=== PATIENT | male | born 1950 | race Caucasian/White ===

== ENCOUNTER → 2023-04-14 15:05 | Outpatient (REF) | payer MEDICARE, OTHER, SELFPAY | LOC: RAD 15:05 | PROVIDERS: ATTENDING PHYSICIAN Family Medicine | DX: R31.9 Hematuria, unspecified (principal); C67.9 Malignant neoplasm of bladder, unspecified; C61 Malignant neoplasm of prostate | CPT/HCPCS: 74177; Q9967 ==

== ENCOUNTER → 2023-04-27 13:02 | Outpatient (REF) | payer MEDICARE, OTHER, SELFPAY | LOC: RAD 13:02 | PROVIDERS: ATTENDING PHYSICIAN Physician Assistant; FAMILY PHYSICIAN Family Medicine | DX: I65.29 Occlusion and stenosis of unspecified carotid artery (principal); I65.23 Occlusion and stenosis of bilateral carotid arteries | CPT/HCPCS: 93880 ==

== ENCOUNTER 2023-05-11 06:53 | Day surgery (SDC) | payer MEDICARE, OTHER, SELFPAY ==
[2023-05-11] VITALS (23 sets, daily range): BP systolic 69–152; BP diastolic 13–68; BMI 22.5
[2023-05-11] MEDS: LOW STRENGTH ASPIRIN 81 MG PO (07:38)
[2023-05-11] MEDS: NSS 500 IV (07:39)
[2023-05-11 07:59] LABS: Hematocrit 32.5 % (39.0-52.0); Hemoglobin 10.9 g/dL (13.0-18.0); Mean Corp Hgb Conc. 33.5 g/dL (33.0-37.0); Mean Corpuscular Hgb 27.5 pg (27.0-31.0); Mean Corpuscular Volume 81.9 fL (80.0-94.0); Mean Platelet Volume 11.5 fL (7.4-10.4); Platelet Count 191 10^3/uL (130-400); Red Blood Cell Count 3.97 10^6/uL (4.70-6.10); Red Cell Dist. Width 14.1 % (11.5-14.5); White Blood Cell Count 8.4 10^3/uL (4.8-10.8)
[2023-05-11 08:08] LABS: INR 1.19
[2023-05-11 08:09] LABS: APTT 32.1 Sec (23.4-35.0)
[2023-05-11 08:15] LABS: Blood Urea Nitrogen 18 mg/dl (9-20); Calcium 8.8 mg/dl (8.4-10.2); Carbon Dioxide 28 mmol/L (22-30); Chloride 103 mmol/L (98-107); Estimated Creatinine Clearance 94 ml/min; Glucose 96 mg/dl (70-99); Potassium 3.8 mmol/L (3.5-5.1); Sodium 137 mmol/L (135-145); eGFR > 60.00
--- NOTE | 2023-05-11 08:41 | W.SUR.PREOP ---
Pre-Operative Surgical Note
-
I have examined this patient prior to the performance of the scheduled procedure.
The patient's condition is unchanged from the time of the current History and
Physical and the patient is able to undergo the scheduled procedure.
[2023-05-11 09:38] LABS: Glucose - Point of Care 118 mg/dl (70-99)
[2023-05-11] MEDS: NSS 1000 IV (10:56)
[2023-05-11] MEDS: ROXICODONE 5 MG PO (13:05)
[2023-05-11] MEDS: TYLENOL 650 MG PO (13:05)
--- NOTE | 2023-05-11 15:30 | PTCARENOTE ---
noted some swelling in right foot distal to the tubigrip dressing in place, pt denies complaints of pain or numbness/tingling, foot is pink with +doppler DP signal, Hilda franco texted and came to evaluate pt- no new orders, confirmed
pt is OK for discharge
--- NOTE | 2023-05-11 15:48 | OR.RPT ---
Operative Report
Operative Report
Date of Operation: 05/11/2023
Pre Op Diagnosis: Nonhealing wound plantar surface of right heel
Post Op Diagnosis: Nonhealing wound plantar surface of right heel
Procedure:
1.) Selective catheterization of second-order right lower extremity artery
2.) Diagnostic aortobiiliac arteriogram
3.) Diagnostic right lower extremity arteriogram
4.) Ultrasound-guided percutaneous access to the left common femoral artery
Surgeon: Tirso Cramer III, MD
Telephone Advice Nurse: Jin Dent MD PGY-1
Anesthesia: Sedation with local
Fluoroscopy:
11 min
218 mGy
64.86 Gy.cm2
Complications: None
Estimated Blood Loss: Minimal
History and Indications for Procedure: 73-year-old male with nonhealing wound on the plantar surface of his right heel
Procedure in Detail: Herrera Angel was correctly identified and placed supine on the operating table. After adequate induction of anesthesia the bilateral groins were prepped and draped in the usual sterile fashion. A timeout was performed with the
nursing and anesthesia staff confirming the patient's identity as well as the nature and laterality of the procedure.
The left common femoral artery was identified under ultrasound guidance. The artery was patent with luminal calcified plaque identified. The superior and inferior aspects of the femoral head were identified with radiographic guidance and marked at
the skin level. The proposed puncture site was infiltrated with local anesthesia. We saved a copy of the ultrasound image to the medical record. Under ultrasound guidance we accessed the left common femoral artery with a micropuncture needle and
upsized to a 5 Fr sheath over a Bentson wire. The wire and a ShepherMira Dx hook flush catheter were advanced into the distal abdominal aorta and a diagnostic aorto-biiliac arteriogram was performed:
AORTO-ILIAC ARTERIOGRAM:
Aorta: Heavily calcified. Patent. 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
Right common iliac artery: Diffusely calcified. Patent stent. No significant stenosis identified
Right external iliac artery: Diffusely calcified. Patent. No significant stenosis identified
Left common iliac artery: Patent stent. Calcified.
Left external iliac artery: Diffusely calcified. Patent.
Under roadmap guidance using a Glidewire and the ShegDecideerMira Dx hook catheter we selected the right common iliac artery and then the external iliac artery. A catheter was tracked up and over the aortic bifurcation and placed in the distal external iliac
artery. A diagnostic right lower extremity arteriogram was then performed which demonstrated the following:
RIGHT LOWER EXTREMITY:
Common femoral artery: Patent with no stenosis identified
Profunda femoral artery: Patent with no stenosis identified
Superficial femoral artery: Stented throughout. Patent with brisk flow. Focal areas of mild in-stent restenosis identified
Popliteal artery: Patent with no significant stenosis identified
Anterior tibial artery: Patent at its origin but occluded shortly thereafter. No distal reconstitution.
Tibioperoneal trunk: Patent with no stenosis identified
Peroneal artery: Patent with no stenosis identified
Posterior tibial artery: Patent with no stenosis identified. Flow to the heel is identified through posterior tibial and peroneal artery branches.
Significant small vessel disease is identified in the foot. There is no reconstitution of the dorsalis pedis artery. Only 1 plantar branch is identified in the foot.
Satisfied with this result we concluded the procedure. The catheter was pulled from the sheath. The sheath was secured in place with the plan to pull it in the recovery room.
The patient tolerated the procedure well and was taken to the recovery area in stable condition.
Attestation: I was present and responsible for the entire procedure.
Signed:
Tirso Cramer III, MD
[facility]
[phone] (notw)
--- NOTE | 2023-05-11 16:17 | W.IMMPOSTOP ---
Surgical Immed Post Op Note
-
Primary Surgeon: Tirso Cramer III, MD
Assisting Surgeon: Jin Dent MD
Pre-op Diagnosis: Non-healing R LE Ulcer
Post-op Diagnosis: Non-Healing R LE Ulcer
Procedure Performed: Diagnostic RLE A-Gram
Anesthesia Type: Light Sedation
Specimen / Cultures: N/A
Estimated Blood Loss: 2cc
Complications: None
Operative Findings: Mild femoral and popliteal disease. TP moderately calcified. Posterior LE circulation intact. Cannot r/o possibility of microvascular disease.
== END 2023-05-11 15:45 | disposition home or self-care (01) ==
LOC: CATH 06:53
PROVIDERS: ATTENDING PHYSICIAN Surgery Vascular Surgery; FAMILY PHYSICIAN Family Medicine
DX: I70.234 Atherosclerosis of native arteries of right leg with ulceration of heel and midfoot (principal); L97.419 Non-pressure chronic ulcer of right heel and midfoot with unspecified severity; I65.29 Occlusion and stenosis of unspecified carotid artery
CPT/HCPCS: 36246; 75716; 75625; 76937; 80048; 82962; 85027; 85610; 85730; C1894; Q9967

== ENCOUNTER → 2023-05-20 19:22 | Outpatient (REF) | payer MEDICARE, OTHER, SELFPAY | LOC: MRI 19:22 | PROVIDERS: ATTENDING PHYSICIAN Podiatrist Foot Surgery; FAMILY PHYSICIAN Family Medicine | DX: M79.671 Pain in right foot (principal) | CPT/HCPCS: 73718 ==

== ENCOUNTER → 2023-06-08 08:59 | Outpatient (REF) | payer MEDICARE, OTHER, SELFPAY | LOC: RAD 08:59 | PROVIDERS: ATTENDING PHYSICIAN Podiatrist Foot Surgery; FAMILY PHYSICIAN Family Medicine | DX: L97.512 Non-pressure chronic ulcer of other part of right foot with fat layer exposed (principal) | CPT/HCPCS: 78315; A9503 ==

== ENCOUNTER → 2023-06-10 06:41 | Outpatient (REF) | payer MEDICARE, OTHER, SELFPAY | LOC: RAD 06:41 | PROVIDERS: ATTENDING PHYSICIAN Podiatrist Foot Surgery; FAMILY PHYSICIAN Family Medicine | DX: L97.512 Non-pressure chronic ulcer of other part of right foot with fat layer exposed (principal) | CPT/HCPCS: 78803; A9569 ==

== ENCOUNTER 2023-07-14 21:09 | Emergency (ER) | payer MEDICARE, OTHER, SELFPAY ==
[2023-07-14 21:11] VITALS: BP 166/74; BMI 22.7
[2023-07-14 21:12] VITALS: BP 166/74
[2023-07-14 21:22] LABS: % Basophils 0.8 % (0-2); % Eosinophils 1.5 % (0-6); % Immature Granulocytes 0.3 % (0-0.5); % Lymphocytes 15.9 % (20.5-51.1); % Monocytes 9.3 % (1.7-9.3); % Neutrophils 72.2 % (42.2-75.2); Absolute Basophils 0.1 10^3/uL (0-0.2); Absolute Eosinophils 0.1 10^3/uL (0-0.7); Absolute Lymphocytes 1.5 10^3/uL (1.2-3.4); Absolute Monocytes 0.9 10^3/uL (0.1-0.6); Absolute Neutrophils 6.6 10^3/uL (1.4-6.5); Hematocrit 33.4 % (39.0-52.0); Hemoglobin 11.1 g/dL (13.0-18.0); Mean Corp Hgb Conc. 33.2 g/dL (33.0-37.0); Mean Corpuscular Hgb 27.3 pg (27.0-31.0); Mean Corpuscular Volume 82.3 fL (80.0-94.0); Mean Platelet Volume 10.7 fL (7.4-10.4); Nucleated Red Blood Cells % 0 % (-); Platelet Count 197 10^3/uL (130-400); Red Blood Cell Count 4.06 10^6/uL (4.70-6.10); Red Cell Dist. Width 14.9 % (11.5-14.5); White Blood Cell Count 9.1 10^3/uL (4.8-10.8)
--- NOTE | 2023-07-14 21:31 | ED.GENMED ---
History of Present Illness
General
Chief Complaint: Breathing Problem
Source: patient
Exam Limitations: none
Time Seen by Provider: 07/14/23 21:21
Travel History
Have you had any contact with someone who has COVID-19?: No
Do you have any symptoms of coronavirus? Fever > 100 degrees, chills, cough, shortness of breath, sore throat, loss of taste or smell, muscle aches, or headache?: No
History of Present Illness
History of Present Illness:
See MDM
Past History
Past History
ED Past Medical History: Arrthythmia (Atrial fib), CAD, Cancer (Prostate, Bladder), CHF, HTN, Hypercholesterolemia, NIDDM and Other (Diabetic neuropathy, Left foot drop, Frequent Syncope, Pericarditis, PVD, Numbness and tingling)
ED Past Surgical History: Cardiac (CABG with Mitral valve replaced), Orthopedic (Left Shoulder surgery), Urological (Prostatectomy) and Other (Amputation left great toe, Bypass left groin, Left fempop bypass. Left leg stent, )
Social History
Tobacco: Former smoker
Alcohol: None
Drug: None
Personal:
Living: with family
Employment: Employed
Family History
Family History: Hypertension
Phy Exam
Physical Exam
Physical Exam:
See MDM
Scores
Heart Failure Risk
Heart Failure Risk Score: Yes
History of Stroke or TIA: No
History of intubation for respiratory distress: No
Heart rate on ED arrival >/= 110: No
SaO2 <90% on arrival on room air: No
HR >/=110 during 3min walk test (or too ill to perform test): No
ECG has acute ischemic changes: No
Urea >/=12mmol/L (BUN 33.6mg/dL): No
Serum CO2>/=35mmol/L: No
Troponin I or T elevated to TN Level (0.4mg/dL): No
NT-proBNP >/=5,000ng/L (5,000pg/ml): No
HF Risk Score: 0
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
Course
Orders/Labs/Results
Orders:
Orders
07/14/23 21:14
Electrocardiogram (*1) Urgent
Reason for Study: Shortness of Breath
EKG- Treatment ONCE
07/14/23 21:15
Complete Blood Count/With Diff Urgent
Comprehensive Metabolic Panel Urgent
NT-proBNP Urgent
Troponin I Urgent
Comment: ADD ON
07/14/23 21:27
Add On- LAB Urgent
Tests Added?: troponin
CR Chest - 2 Views Urgent
Comment: Hx CHF
Reason For Exam: SOB
07/14/23 21:33
Furosemide [Lasix] 40 mg IV ONCE ONE
Abnormal Lab Results
07/14/23
21:15
RBC 4.06 L 10^6/uL
(4.70-6.10)
Hgb 11.1 L g/dL
(13.0-18.0)
Hct 33.4 L %
(39.0-52.0)
RDW 14.9 H %
(11.5-14.5)
MPV 10.7 H fL
(7.4-10.4)
Absolute Neuts (auto) 6.6 H 10^3/uL
(1.4-6.5)
Absolute Monos (auto) 0.9 H 10^3/uL
(0.1-0.6)
Lymphocytes % 15.9 L %
(20.5-51.1)
BUN 21 H mg/dl
(9-20)
Glucose 132 H mg/dl
(70-99)
07/14/23 21:15
07/14/23 21:15
Vital Signs
Initial and Last Documented VS:
Initial Vital Signs
Temp Pulse Resp BP Pulse Ox
98.1 F 82 24 166/74 93
07/14/23 21:11 07/14/23 21:11 07/14/23 21:11 07/14/23 21:11 07/14/23 21:11
Last Documented Vital Signs
Temp Pulse Resp BP Pulse Ox
98.1 F 78 16 124/63 97
07/14/23 21:11 07/14/23 23:00 07/14/23 23:00 07/14/23 23:00 07/14/23 23:00
MDM/Problems Addressed
Differential Diagnosis Includes:
HPI and MDM Narrative:
73-year-old male presenting with shortness of breath. Patient states it was sudden onset and occurred few minutes prior to arrival. EMS arrived and supplied oxygen and sublingual nitroglycerin. Patient states he is starting to feel better. He
denies any chest pain. Patient states this happens randomly and believes it is related to his CHF. I discussed that his legs and lungs sound clear. Patient states that his normal for his CHF exacerbations.
Will obtain EKG and basic blood work in addition to troponin and BNP.
Physical exam
General: Well appearing and non-toxic
HEENT: protecting airway
Neck: appears supple
CV: No evidence of cyanosis. Regular rate and rhythm
Resp: No accessory muscle use. Lungs clear
Abd: Non-distended
Extremities: No deformities. No leg edema
Neuro: alert
Psych: Normal affect
Skin: Intact
Problems Addressed including Acute and Chronic Conditions affecting care:
1. Shortness of breath
Acuity: acute
Prognosis: stable
Details: Given his prior history, will look for evidence of CHF exacerbation. Will give IV Lasix
Updates
11:45 PM on reassessment, patient states he is feeling better. He is ambulating without difficulty. He is no longer on oxygen. He states he urinated multiple times. I long discussion indicating that his labs look decent and his chest x-ray is
clear. We discussed the possibility of COPD but patient has no wheezing. He states his doctor told him he does not have COPD. He question CHF. I discussed that there is no evidence of pulmonary edema, pleural effusions and his BNP is at
baseline. Since patient has been through this before and knows that he feels better in the morning, patient states he wants to go home. We discussed taking 40 mg of Lasix daily for the next few days instead of alternating between 40 and 20
Differential Diagnosis (but not limited to): CHF exacerbation, pneumonia, COPD
Testing considered: D-dimer
Drug therapy (if applicable): OTC meds, please see d/c instruction regarding Rx drugs
Amount and/or Complexity of Data Reviewed
Clinical info obtained from: Patient
External data reviewed: N/A
Labs I independently reviewed (but not limited to): Troponin and BNP at baseline
Radiology: X-ray independently reviewed: Chest x-ray without pneumonia or pleural effusion
Pulse Ox: not hypoxic
EKG independently reviewed: Sinus rhythm, normal axis, no STEMI
Shopper: Sinus rhythm
Critical Care: N/A
Risk of Complication:
Social Determinants of health: Good social support
Discussed with other providers: N/A
Escalation of Care includes Admit/Obs: After being observed in the Emergency Department, pt stable for discharge.
Occasional wrong word or 'sound a like' substitutions may have occurred due to the inherent limitations of voice recognition software. Read the chart carefully and recognize, using context, where substitutions have occurred.
*Critical Care Note
Total Time (30-74mins, 75-104mins- exclusive of procedures): Not Applicable
ED Attending Note
-
Portions of this chart may have been created with voice recognition software.� Occasional wrong word or��sound alike� substitutions may have occurred due to the inherent limitations of voice recognition software.
Discharge Plan
Departure
Patient Disposition: Home (Routine Discharge)
Date of Disposition: 07/14/23
Time of Disposition: 23:47
Patient with high blood pressure during this ER visit?: No
Discharge Problem:
Dyspnea
Instructions: Shortness of Breath, Adult ED
Prescriptions:
No Action
atorvastatin 80 MG tablet
80 mg PO QPM
gabapentin 600 mg Tablet
600 mg PO TID
zolpidem 5 mg Tablet
5 mg PO HSPRN PRN (Reason: sleep)
Patient Comments:
07/14/2023: last filled 05/31/22, 30 tabs for 30 days from [facility]
furosemide 20 mg Tablet
20 mg PO Q48H
furosemide 40 mg tablet
40 mg PO Q48H
acetaminophen 325 mg Tablet
650 mg PO Q4HPRN PRN (Reason: mild pain/BRAVO/temp> 100.4F) Qty: 100 0RF
bisacodyl 10 mg Suppository
10 mg MA DAILYPRN PRN (Reason: Constipation) Qty: 12 0RF
morphine 15 mg Tablet Extended Release
15 mg PO Q8 Qty: 15 0RF
Patient Comments:
07/14/2023: last filled 06/18/23, 90 tabs for 30 days from [facility]
midodrine 5 mg Tablet
5 mg PO TIDPRN PRN (Reason: dizziness) Qty: 10 0RF
polyethylene glycol 3350 [HealthyLax] 17 gram Powder In Packet
17 g PO DAILY Qty: 30 0RF
oxycodone 10 mg tablet
10 mg PO QID
Hold Instructions: Resume on 05/12/23. Hold following anesthesia
Patient Comments:
07/14/2023: last filled 06/18/23, 120 tabs for 30 days from [facility]
aspirin 81 mg Tablet,Delayed Release (Dr/Ec)
81 mg PO DAILY Qty: 30 0RF
glipizide 2.5 MG tablet extended release 24hr
2.5 mg PO QPM Qty: 0 0RF
Rx Instructions:
dont take on the day of surgery
metformin 1,000 MG tablet
1,000 mg PO BID Qty: 0 0RF
Hold Instructions: Resume on 05/14/23. Holding metformin for 48 hours following procedure
Rx Instructions:
hold 48hr prior to surgery
docusate sodium 100 mg capsule
100 mg PO DAILY PRN (Reason: Constipation)
Eliquis 5 mg tablet
5 mg PO BID Qty: 60 1RF
Hold Instructions: Resume on 05/12/23. Can restart your Eliquis with tomorrow morning's dose
lactulose 10 gram/15 mL solution
30 ml PO DAILY
Referrals:
Sivakumar Patel MD [Family Provider] -
Activity Restrictions/Additional Instructions:
Please return for any worsening symptoms.
You may return at any time if you have further concerns.
Please follow up with your doctor at the first available appointment, preferably this week.
As we discussed, it is not clear what is causing your shortness of breath. Since you have had mild weight gain, please take 40 mg of Lasix daily for the next 3 days.
Thank you for choosing [facility].
Interventions
Interventions:
*Risk Screen - Suicide Last Done: 07/14/23 21:17
*General Assessment Last Done: 07/14/23 21:17
*Neglect/Abuse Screening Last Done: 07/14/23 21:17
*ED COVID-19 Vaccine History Last Done: 07/14/23 21:17
ED- Cardiac Assessment Last Done: 07/14/23 21:20
ED- Pulmonary Assessment Last Done: 07/14/23 21:20
Discharge Date and Time
Print Language: MALTESE
[2023-07-14] MEDS: LASIX 40 MG IV (21:37)
[2023-07-14 21:43] LABS: NT-proBNP 854 pg/ml
[2023-07-14 21:51] LABS: ALT (SGPT) 16 U/L (0-50); AST (SGOT) 25 U/L (17-59); Albumin 4.2 g/dl (3.5-5.0); Alkaline Phosphatase 124 U/L (38-126); Blood Urea Nitrogen 21 mg/dl (9-20); Calcium 9.2 mg/dl (8.4-10.2); Carbon Dioxide 27 mmol/L (22-30); Chloride 101 mmol/L (98-107); Estimated Creatinine Clearance 108 ml/min; Glucose 132 mg/dl (70-99); Potassium 4.5 mmol/L (3.5-5.1); Sodium 137 mmol/L (135-145); Total Bilirubin 0.9 mg/dl (0.2-1.3); Total Protein 7.1 g/dl (6.3-8.2); eGFR > 60.00
[2023-07-14 22:00] VITALS: BP 131/69
[2023-07-14 22:02] LABS: Troponin I 0.012 ng/ml
[2023-07-14 23:00] VITALS: BP 124/63
== END 2023-07-14 23:53 | disposition home or self-care (01) ==
LOC: EMR 21:09
PROVIDERS: EMERGENCY PHYSICIAN Student in an Organized Health Care Education/Training Program; FAMILY PHYSICIAN Family Medicine
DX: R06.00 Dyspnea, unspecified (principal); I48.91 Unspecified atrial fibrillation; I25.10 Atherosclerotic heart disease of native coronary artery without angina pectoris; I11.0 Hypertensive heart disease with heart failure; I50.9 Heart failure, unspecified; E78.00 Pure hypercholesterolemia, unspecified; E11.40 Type 2 diabetes mellitus with diabetic neuropathy, unspecified; I73.9 Peripheral vascular disease, unspecified; Z95.1 Presence of aortocoronary bypass graft; Z87.891 Personal history of nicotine dependence; Z82.49 Family history of ischemic heart disease and other diseases of the circulatory system
CPT/HCPCS: 99283; 96374; 71046; 80053; 83880; 84484; 85025; 93005

== ENCOUNTER 2023-07-16 06:01 | Day surgery (SDC) | payer MEDICARE, OTHER, SELFPAY ==
[2023-07-16] VITALS (11 sets, daily range): BP systolic 106–132; BP diastolic 41–83; BMI 23.2
[2023-07-16] MEDS: NORMOSOL-R 1000 IV (06:40)
[2023-07-16] MEDS: CYSVIEW KIT 100 MG INTRAVES (06:45)
[2023-07-16 06:54] LABS: Glucose - Point of Care 121 mg/dl (70-99)
[2023-07-16 08:43] LABS: Glucose - Point of Care 128 mg/dl (70-99)
[2023-07-16] MEDS: Pyridium 200 MG PO (09:00)
== END 2023-07-16 10:14 | disposition home or self-care (01) ==
LOC: SDS 06:01
PROVIDERS: ATTENDING PHYSICIAN Specialist
DX: C67.9 Malignant neoplasm of bladder, unspecified (principal)
CPT/HCPCS: 52235; C9738; 88307; 82962; A9589

== ENCOUNTER 2023-07-18 04:44 | Inpatient (IN) | payer MEDICARE, OTHER, SELFPAY ==
[2023-07-18] VITALS (53 sets, daily range): BP systolic 89–194; BP diastolic 49–122; PULSE 2–130; BMI 23.5; BMI 23.0
[2023-07-18] MEDS: LASIX 80 MG IV (02:32)
[2023-07-18] MEDS: NITROGLYCERIN PREMIX 250 IV (02:33)
[2023-07-18 02:42] LABS: % Basophils 0.8 % (0-2); % Immature Granulocytes 0.4 % (0-0.5); % Lymphocytes 23.5 % (20.5-51.1); % Monocytes 8.5 % (1.7-9.3); % Neutrophils 64.8 % (42.2-75.2); Absolute Basophils 0.1 10^3/uL (0-0.2); Absolute Eosinophils 0.3 10^3/uL (0-0.7); Absolute Immature Granulocytes 0.1 10^3/uL (0-0.05); Absolute Lymphocytes 3.7 10^3/uL (1.2-3.4); Absolute Monocytes 1.3 10^3/uL (0.1-0.6); Absolute Neutrophils 10.2 10^3/uL (1.4-6.5); Hematocrit 35.1 % (39.0-52.0); Hemoglobin 11.8 g/dL (13.0-18.0); Mean Corp Hgb Conc. 33.6 g/dL (33.0-37.0); Mean Corpuscular Hgb 27.5 pg (27.0-31.0); Mean Corpuscular Volume 81.8 fL (80.0-94.0); Mean Platelet Volume 11.1 fL (7.4-10.4); Nucleated Red Blood Cells % 0 % (-); Platelet Count 266 10^3/uL (130-400); Red Blood Cell Count 4.29 10^6/uL (4.70-6.10); Red Cell Dist. Width 15.5 % (11.5-14.5); White Blood Cell Count 15.7 10^3/uL (4.8-10.8)
[2023-07-18 03:01] LABS: ALT (SGPT) 16 U/L (0-50); AST (SGOT) 30 U/L (17-59); Albumin 4.6 g/dl (3.5-5.0); Alkaline Phosphatase 134 U/L (38-126); Blood Urea Nitrogen 28 mg/dl (9-20); Carbon Dioxide 23 mmol/L (22-30); Chloride 99 mmol/L (98-107); Estimated Creatinine Clearance 78 ml/min; Glucose 189 mg/dl (70-99); Potassium 4.1 mmol/L (3.5-5.1); Sodium 137 mmol/L (135-145); Total Bilirubin 0.8 mg/dl (0.2-1.3); Total Protein 7.7 g/dl (6.3-8.2); eGFR > 60.00
[2023-07-18 03:02] LABS: COVID-19 Antigen Negative (Negative)
[2023-07-18 03:07] LABS: NT-proBNP 1220 pg/ml; Troponin I < 0.012 ng/ml
--- NOTE | 2023-07-18 03:12 | ED.GENMED ---
History of Present Illness
General
Chief Complaint: Breathing Problem
Source: patient
Exam Limitations: none
Time Seen by Provider: 07/18/23 02:25
Nursing documentation reviewed up to this point in time: agreed with
Travel History
Have you had any contact with someone who has COVID-19?: Unable to Answer
Do you have any symptoms of coronavirus? Fever > 100 degrees, chills, cough, shortness of breath, sore throat, loss of taste or smell, muscle aches, or headache?: Yes
Symptoms:: sob
History of Present Illness
History of Present Illness:
Patient with history of atrial fibrillation on Eliquis and congestive heart failure on Lasix, presents ED secondary to sudden onset of shortness of breath while he was at home this evening. Denies chest pain. Denies dizziness. Denies nausea or
vomiting. Denies diaphoresis. Denies back pain. Denies recent change in medications or diet. Patient states that he has had number of similar symptoms in the past, including earlier this week, when he was evaluated in ED. Patient was not
admitted at that time. Denies recent travel or surgery. Denies recent weight gain. Denies increased leg pain or swelling.
Past History
Past History
ED Past Medical History: Arrthythmia (Atrial fib), CAD, Cancer (Prostate, Bladder), CHF, HTN, Hypercholesterolemia, NIDDM and Other (Diabetic neuropathy, Left foot drop, Frequent Syncope, Pericarditis, PVD, Numbness and tingling)
ED Past Surgical History: Cardiac (CABG with Mitral valve replaced), Orthopedic (Left Shoulder surgery), Urological (Prostatectomy) and Other (Amputation left great toe, Bypass left groin, Left fempop bypass. Left leg stent, )
Social History
Tobacco: Former smoker
Alcohol: None
Drug: None
Personal:
Living: with family
Employment: Employed
Family History
Family History: Hypertension
Review of Systems
Review of Systems
Allergies reviewed?: Yes
All Other Systems: ROS reviewed and negative except as documented in HPI and ROS
Constitutional: Reports no symptoms
EENT: Reports no symptoms
Respiratory: Reports trouble breathing; Denies cough
Cardiac: Reports no symptoms
ABD/GI: Reports no symptoms
: Reports no symptoms
Musculoskeletal: Reports no symptoms; Denies edema
Skin: Reports no symptoms
Neurological: Reports no symptoms
Phy Exam
Physical Exam
Physical Exam:
Physical Exam
General: moderate respiratory distress, not acutely ill. afebrile. hypertensive.
Head: nc/at. eomi
Neck: supple. no meningeal signs.
Heart: tachycardic, systolic murmur. equal radial pulses.
Lungs: moderate respiratory distress. crackles bilaterally. mild retraction
Abdomen: normal bowel sounds. not tender.
Neuro: alert and oriented. no focal neurological deficits
Skin: no rash
Psychiatric: well kept. interactive and cooperative
Extremities: LE b/l edema, nonpitting. no calf tenderness.
Scores
Heart Failure Risk
Heart Failure Risk Score: Yes
History of Stroke or TIA: No
History of intubation for respiratory distress: Yes
Heart rate on ED arrival >/= 110: Yes
SaO2 <90% on arrival on room air: Yes
HR >/=110 during 3min walk test (or too ill to perform test): Yes
ECG has acute ischemic changes: No
Urea >/=12mmol/L (BUN 33.6mg/dL): No
Serum CO2>/=35mmol/L: No
Troponin I or T elevated to UT Level (0.4mg/dL): No
NT-proBNP >/=5,000ng/L (5,000pg/ml): No
HF Risk Score: 5
Admission Status: VERY HIGH RISK 39.8% Consider admission to hospital
Course
Orders/Labs/Results
Orders:
Orders
07/18/23 02:25
CR Chest Portable - 1 View Urgent
Comment:
Reason For Exam: sob
Reason Study Needs to be Portable: Patient Unstable
07/18/23 02:26
Furosemide [Lasix] 100 mg .ROUTE .STK-MED ONE
Furosemide [Lasix] 80 mg IV NOW STA
Nitroglycerin 100 mg/250 ml [Nitroglycerin Premix] 100 mg in 250 ml .ROUTE .STK-MED
07/18/23 02:28
Electrocardiogram (*1) Urgent
Reason for Study: Chest Pain
Cardiac Monitoring- Treatment ONCE
EKG- Treatment ONCE
IV Insert/Care/Rem.- Treatment PRN
O2 Therapy [RESP] Urgent
Titrate/Wean O2 to maintain O2 sat greater than (%): 90
Special Instructions: Maintain sats >/=90%
Pulse Ox/spot Check [RESP] Urgent
Quantity: 1
Special Instructions: ON ROOM AIR
07/18/23 02:30
Nitroglycerin 100 mg/250 ml [Nitroglycerin Premix] 100 mg in 250 ml IV PER PROTOCOL
Initial dose in mcg/min, then titrate:: 200
Titrate to keep:: SBP < 160 mmHg
Titrate by mcg/min:: 5 mcg/min, may increase by 10 mcg/min if dose > 20 mcg/min
Frequency of titrations (minutes):: every 3-5 minutes
Maximum dose in mcg/min:: 200
Begin to taper infusion when:: Remained at goal for 2hrs
Taper by mcg/min:: 5 mcg/min
Frequency of taper (minutes) if patient maintains goal:: 30
Taper to off?: Yes
If infusion off & no longer maintaining goal:: Contact Provider
07/18/23 02:36
Complete Blood Count/With Diff Urgent
Comprehensive Metabolic Panel Urgent
Magnesium Urgent
Comment: ADDED
NT-proBNP Urgent
Troponin I Urgent
07/18/23 02:39
COVID-19 Antigen Urgent
Source: Nasal Swab
Influenza A+B Rapid Molecular Urgent
NOHEMY Source: Nasal Swab
Specimen Description:
07/18/23 02:45
Lidocaine 2% [Lidocaine Uro-Jet 2%] 1 syringe .ROUTE .STK-MED ONE
07/18/23 03:11
Cramer Placement- Treatment ONCE
Reason for insertion: I&O's Critical Care
07/18/23 03:36
Add On- LAB Urgent
Tests Added?: magnesium
07/18/23 04:10
Admit/Transfer Patient As Directed
Co-Sign Provider:
Level of Care: Inpatient admission
Assign to:: IMU- Intermediate Care
Physician / Group: Portillo
Diagnosis: CHF
Reason for Hospitalization: CHF
Expected length of stay greater than two midnights?: Yes
ELOS- Estimated Length of Stay in days: 2
I certify the patient meets the requirements for IP care: Yes
07/18/23 04:19
Code Status As Directed
Resuscitation Status: Full Code
07/18/23 05:35
Troponin I Q6H
Acetaminophen [Tylenol] 650 mg PO Q4HPRN PRN
Oxycodone [Roxicodone] 10 mg PO Q6H PRN
Polyethylene Glycol Powder [Miralax] 17 grams PO DAILY PRN
07/18/23 05:35
Echo 2D MMode Doppler [Echo 2D MMode Color/Doppler] Routine
Reason for Study: CHF
CARDIOLOGY CONSULT Routine
Consulting Provider: Arron Luna
Was physician already notified: No
Reason for consult: CHF
Consult Notification Routine
Specialty to Notify: Cardiology
Activity As Directed
Activity Level: Ambulate
With Assistance
Bladder Scan As Directed
Follow Bladder Retention/Intermittent Cath Algorithm?: Yes
PRN if no void in __ hours: 6
Frequency: Per Retention Algorithm
If Bladder Scan Result >: 400
then:: Straight cath
EKG with chest pain [ECG as needed] As Directed
ECG as needed for:: Chest Pain
I/O [Intake/ Output] As Directed
Frequency: Per unit guidelines
Pneumatic Compression Sleeves As Directed
Type: Knee high
Straight Cath As Directed
Frequency: Per Retention Algorithm
Additional Instructions: straight cath as needed per acute urinary retention algorithm for 24 hrs
Additional Instructions: for bladder scan greater than 400 mL
Vital Signs As Directed
Frequency: Per unit guidelines
Weight As Directed
Frequency: Daily
Oxygen Therapy [O2 Therapy] [RESP] Routine
Titrate/Wean O2 to maintain O2 sat greater than (%): 94
Ot Eval And Treat Routine
PT Consult [Pt Eval And Treat] Routine
Activity Level: Ambulate
With Assistance
DX Deep Vein Thrombosis Video Routine
07/18/23 06:00
EKG [Electrocardiogram (*1)] IN AM
Reason for Study: Chest Pain
Basic Metabolic Panel IN AM
Complete Blood Count/No Diff IN AM
07/18/23 08:00
Apixaban [Eliquis] 5 mg PO BID
Aspirin Low Dose EC [Aspir Low (Enteric Coated)] 81 mg PO DAILY
Docusate Sodium [Colace] 100 mg PO BID
Furosemide [Lasix] 40 mg IV BID AT 0800,1600
Gabapentin [Neurontin] 600 mg PO TID
Morphine Sulfate Extended Rel. [Ms Contin (Extended Release)] 15 mg PO Q8
07/18/23 11:35
Troponin I Q6H
07/18/23 17:35
Troponin I Q6H
07/18/23 18:00
Atorvastatin [Lipitor] 80 mg PO QPM
Abnormal Lab Results
07/18/23
02:36
WBC 15.7 H 10^3/uL
(4.8-10.8)
RBC 4.29 L 10^6/uL
(4.70-6.10)
Hgb 11.8 L g/dL
(13.0-18.0)
Hct 35.1 L %
(39.0-52.0)
RDW 15.5 H %
(11.5-14.5)
MPV 11.1 H fL
(7.4-10.4)
Abs Immat Gran (auto) 0.1 H 10^3/uL
(0-0.05)
Absolute Neuts (auto) 10.2 H 10^3/uL
(1.4-6.5)
Absolute Lymphs (auto) 3.7 H 10^3/uL
(1.2-3.4)
Absolute Monos (auto) 1.3 H 10^3/uL
(0.1-0.6)
BUN 28 H mg/dl
(9-20)
Glucose 189 H mg/dl
(70-99)
Alkaline Phosphatase 134 H U/L
(38-126)
07/18/23 02:36
07/18/23 02:36
Vital Signs
Initial and Last Documented VS:
Initial Vital Signs
Pulse Resp BP Pulse Ox
131 32 194/122 95
07/18/23 02:24 07/18/23 02:24 07/18/23 02:24 07/18/23 02:24
Last Documented Vital Signs
Temp Pulse Resp BP Pulse Ox
98.3 F 86 15 125/63 97
07/18/23 05:46 07/18/23 05:20 07/18/23 05:20 07/18/23 05:20 07/18/23 05:20
MDM/Problems Addressed
MDM/Problems Addressed:
History and exam consistent with likely an acute CHF exacerbation. Patient with significant improvement after treatment via nitroglycerin bolus as well as infusion, along with Lasix IV. Patient also placed on BiPAP immediately upon arrival.
Patient will be admitted for further evaluation and treatment.
Leukocytosis noted, but patient without any URI symptoms. As such, will withhold antibiotics. May just be reactive leukocytosis.
Critical care statement: A total of 40 minutes of critical care time was provided for this patient. This includes management of unstable vital signs, evaluation of the patient at bedside, reviewing the patient's pertinent medical records, review of
old EKGs and review of pertinent medical records. This time with separate from time utilized to perform the aforementioned documented procedures
*EKG
Interpreted by ED Provider?: Yes
EKG Intrepretation Date: 07/18/23
Heart Rate: 88
Rate: normal
Rhythm: sinus
[place]: normal axis
Interval: long QT
*Critical Care Note
Total Time (30-74mins, 75-104mins- exclusive of procedures): 40 min
ED Attending Note
-
Portions of this chart may have been created with voice recognition software.� Occasional wrong word or��sound alike� substitutions may have occurred due to the inherent limitations of voice recognition software.
Discharge Plan
Departure
Patient Disposition: Admit
Date of Disposition: 07/18/23
Time of Disposition: 03:16
Admit to: IMU
Presentation/result/management discussed w/ accepting MD/DO: Hospitalist
Discharge Problem:
CHF exacerbation
Interventions
Interventions:
*Risk Screen - Suicide Last Done: 07/18/23 03:00
*General Assessment Last Done: 07/18/23 03:00
*Neglect/Abuse Screening Last Done: 07/18/23 03:00
ED- Fall Risk Assessment Last Done: 07/18/23 03:00
*ED COVID-19 Vaccine History Last Done: 07/18/23 05:50
*Nursing Disposition Last Done: 07/18/23 05:35
ED- Cardiac Assessment Last Done: 07/18/23 03:00
ED- Pulmonary Assessment Last Done: 07/18/23 03:00
Discharge Date and Time
Discharge Date/Time: 07/18/23 05:35
--- NOTE | 2023-07-18 04:22 | HPS.HSE ---
Family Physician
-
Family Physician: Sivakumar Patel
Chief Complaint
-
SOB
History of Present Illness
Patient is a 73y M with PMH significant for CHF, mitral valve replacement and ASCVD who presents to ED complaining of SOB. Patient states that he was preparing for bed this evening when he noted rather sudden onset of shortness of breath. He
has had many similar episodes in the past secondary to CHF / pulmonary edema and this evening's symptoms were identical. Patient presented to the ED for further evaluation and treatment. He was in significant respiratory distress on arrival and was
started on BiPAP and NTG infusion and was given IV Lasix.
At the time of my examination the patient is feeling significantly improved. He is requesting to be taken off of the NIPPV.
Patient as noted has prior history of similar episodes.
He had a milder episode only a few days ago and was seen here in the ED on 07/13. He was given a single dose of IV Lasix, urinated several times, and his symptoms rapidly improved - as is usually the case for him.
Patient was advised to increase his Lasix to 40mg daily for a time and follow-up with his [employer] (he typically alternates 20mg and 40mg doses).
His recent history is also significant for TURBT procedure done here on 07/15. Patient states that he did not take his dose of Lasix that day.
He denies any other recent illness, fevers / chills, chest pain, N/V or other complaints.
Medical History
Past Medical History
Past Medical History: Reports Other
Additional Past Medical History:
ASCVD
Paroxysmal Atrial Fibrillation
Bladder Cancer
Prostate Cancer
DM-II with Neuropathy
Chronic HFpEF
Hypertension
Chronic Pain / Chronic Opioid Dependence
Past Surgical History: Reports Other
Additional Past Surgical History:
Bovine Mitral Valve Replacement
CABG
Prostatectomy
L Hallux Amputation
Bilateral Fem-Pop Bypass
RLE Arterial Stent
TURBT
Social History
Tobacco: Former Smoker (Quit in 2007. Approx 40 pack years total use.)
Alcohol: None
Drug: Marijuana
Family History
Family History: Other (Father: CAD, Prostate Cancer Mother: Breast Cancer MGF: CAD )
Allergies / Home Medications
Allergies reflects when Allergies were last updated in [facility].
Home Medications with original date entered in [facility]
Allergy/Medication List:
Allergies
Allergy/AdvReac Type Severity Reaction Status Date / Time
fish derived Allergy SEAFOOD-HIV Verified 07/18/23 02:24
ES
Home Medications
atorvastatin 80 mg tablet 80 mg PO QPM High cholesterol 01/19/20
furosemide 40 mg tablet 40 mg PO DAILY Fluid Retention/Swelling 12/19/22
gabapentin 600 mg tablet 600 mg PO TID Pain 12/19/22
zolpidem 5 mg tablet 5 mg PO HSPRN PRN sleep 12/19/22
acetaminophen 325 mg tablet 650 mg (2 x 325 mg) PO Q4HPRN PRN mild pain/BRAVO/temp> 100.4F #100 tabs 12/22/22
midodrine 5 mg tablet 5 mg PO TIDPRN PRN dizziness #10 tabs 02/07/23
oxycodone 10 mg tablet 10 mg PO Q6H PRN Pain 02/26/23
aspirin 81 mg tablet,delayed release 81 mg PO DAILY #30 tabs 02/27/23
glipizide 2.5 mg tablet, extended release 24 hr 2.5 mg PO QPM Diabetes #0 tabs 02/27/23
metformin 1,000 mg tablet 1,000 mg PO BID Diabetes #0 tabs 02/27/23
docusate sodium 100 mg capsule 100 mg PO DAILY PRN Constipation 03/03/23
apixaban 5 mg tablet (Eliquis) 5 mg PO BID #60 tabs 03/04/23
lactulose 10 gram/15 mL oral solution 30 ml PO DAILY PRN constipation 07/14/23
docusate sodium 50 mg tablet 50 mg PO DAILY PRN constipation 07/18/23
morphine 15 mg tablet,extended release 30 mg PO Q8 Pain 07/18/23
polyethylene glycol 3350 17 gram oral powder packet (HealthyLax) 17 g PO DAILY PRN constipation 07/18/23
Review of Systems
-
History Source: Patient
A 12 point ROS was completed and negative except as noted: Yes
Constitutional: Reports Fatigue; Denies Fever or Chills
EENT: Denies Sore Throat
Respiratory: Reports Trouble Breathing; Denies Cough
Cardiac: Denies Chest Pain, Diaphoresis or Palpitations
Abdomen/GI: Denies Abdominal Pain, Nausea, Vomiting or Diarrhea
: Denies Dysuria or Frequency
Musculoskeletal: Denies Edema
Neurological: Denies Dizzy or Headache
Psych: Denies Depression or Anxiety
Physical Exam
Vital Signs
Vital Signs
Pulse Resp BP Pulse Ox
88 16 127/59 96
07/18/23 03:35 07/18/23 03:35 07/18/23 03:35 07/18/23 03:35
Physical Exam
General: Other (73y M in no acute distress at present with BiPAP mask in place.)
HEENT: Moist mucous membranes, PERRLA and Other (No JVD.)
Respiratory: Other (Diffuse rales bilaterally about 1/3 up. No wheezing / rhonchi.)
Cardiac: S1/S2, Regular Rhythm and Murmur (II/ MARY)
GI: Soft, Non Tender, Non Distended and Normal Bowel Sounds
Musculoskeletal: No Clubbing, No Cyanosis and No Edema
Neuro: AO x 3
Laboratory Results
-
07/18/23 02:36
07/18/23 02:36
Laboratory Results
Total Bilirubin 0.8 mg/dl (0.2-1.3) 07/18/23 02:36
AST 30 U/L (17-59) 07/18/23 02:36
ALT 16 U/L (0-50) 07/18/23 02:36
Alkaline Phosphatase 134 U/L (38-126) H 07/18/23 02:36
Troponin I < 0.012 ng/ml 07/18/23 02:36
Impression/Plan
-
A/P: Patient is a 73y M with PMH significant for ASCVD, CHF and chronic pain who presents to ED in respiratory distress that developed suddenly this evening.
Acute Hypoxemic Respiratory Failure
Acute on Chronic HFpEF
- Admit for further evaluation and treatment.
- Significant clinical improvement already with PAP administration and IV diuresis / NTG.
- Clinical presentation seems similar to his prior presentations.
- Continue IV diuresis with Lasix BID for now.
- Follow strict I/Os, daily weight, etc.
- Update Echo.
- Cardiology evaluation.
- Titrate off of NTG gtt as BP allows - already much improved.
- BiPAP removed in the ED and patient currently stable / comfortable on 3 lpm NC.
- Rule out new ischemia with serial troponin.
- Follow for continued clinical improvement and / or new or worsening symptoms.
Leukocytosis
- Suspect this is primarily a stress response due to acute presentation.
- Patient is afebrile. No recent prodrome of respiratory symptoms or known sick contacts.
- Has had similar/ transient elevations in WBC with prior episodes of CHF.
- Observe off of any abx coverage.
- Follow for any new clinical symptoms / changes.
ASCVD
- Patient with significant history of vascular disease including CAD, carotid disease and PAD.
- No chest pain at present.
- Follow troponin as noted above.
- Continue current CV med regimen including statin, ASA, etc.
Paroxysmal Atrial Fibrillation
History of Bovine MVR
- Stable. Initial tachycardia much improved with improvement in respiratory status.
- Continue current med regimen including Eliquis for stroke risk reduction.
DM-II
Diabetic Neuropathy
- Stable. Hold PO DM medications acutely.
- Follow glucose and cover with SSI as needed.
- Update A1C.
- Continue gabapentin for neuropathic pain.
Chronic Pain Syndrome / Opioid Dependence
- Stable. No new / acute pain complaints.
- Continue outpatient med regimen with no changes for now.
- Try to minimize narcotic use in setting of respiratory compromise.
Bladder Cancer
- s/p TURBT on 07/15 with removal of 3cm bladder tumor.
- No acute issues. No bleeding after resumption of Eliquis therapy.
- Follow for any new symptoms / complaints.
DVT Prophylaxis: On Eliquis
Code Status: Full
--- NOTE | 2023-07-18 06:00 | PTCARENOTE ---
Pt brought up by ED RN. Pt off BiPAP, on 3L NC and off the Nitro gtt. Pt has no complaints at this time. Assessment care and vitals as charted.
[2023-07-18] MEDS: NEURONTIN 600 MG PO ×3 (08:11→20:18)
[2023-07-18] MEDS: ASPIR LOW (ENTERIC COATED) 81 MG PO (08:11)
[2023-07-18] MEDS: COLACE 100 MG PO ×3 (08:11→23:40)
[2023-07-18] MEDS: ELIQUIS 5 MG PO ×2 (08:11→20:18)
[2023-07-18] MEDS: LASIX 40 MG IV ×2 (08:12→16:06)
[2023-07-18] MEDS: MS CONTIN (EXTENDED RELEASE) 15 MG PO ×3 (08:12→23:38)
[2023-07-18 09:32] LABS: Hematocrit 31.6 % (39.0-52.0); Hemoglobin 10.6 g/dL (13.0-18.0); Mean Corp Hgb Conc. 33.5 g/dL (33.0-37.0); Mean Corpuscular Hgb 27.7 pg (27.0-31.0); Mean Corpuscular Volume 82.7 fL (80.0-94.0); Mean Platelet Volume 11.3 fL (7.4-10.4); Platelet Count 204 10^3/uL (130-400); Red Blood Cell Count 3.82 10^6/uL (4.70-6.10); Red Cell Dist. Width 15.4 % (11.5-14.5); White Blood Cell Count 10.6 10^3/uL (4.8-10.8)
[2023-07-18 09:45] LABS: Blood Urea Nitrogen 30 mg/dl (9-20); Calcium 8.7 mg/dl (8.4-10.2); Carbon Dioxide 32 mmol/L (22-30); Chloride 98 mmol/L (98-107); Estimated Creatinine Clearance 77 ml/min; Glucose 111 mg/dl (70-99); Potassium 4.9 mmol/L (3.5-5.1); Sodium 136 mmol/L (135-145); eGFR > 60.00
[2023-07-18 10:02] LABS: Troponin I 0.207 ng/ml
--- NOTE | 2023-07-18 10:17 | CON.CAR ---
Addendum entered and electronically signed by Marcelino Lee MD 07/18/23 12:20:
He is admitted with worsening shortness of breath and diagnosed with acute decompensated congestive heart failure/pulmonary edema initially requiring BiPAP therapy as well as intravenous nitroglycerin. Notably, he did skip a dose of Lasix in the
setting of getting TURBT 07/15. Furthermore, he was in the emergency department July 13 for dyspnea and was treated for a component of heart failure with increasing his outpatient diuretic regimen to Lasix 40 mg daily.
He also has known moderate to severe COPD which could be contributing to his dyspnea.
His medical history is also complicated by significant vascular disease. He has a history of coronary artery disease with prior coronary artery bypass grafting surgery as well as mitral valve replacement with bioprosthetic valve in 2013.
Subsequent worsening coronary artery disease and found to have QUIÑONES to LAD occlusion in 2019 which could not be successfully treated with intervention. He has paroxysmal atrial fibrillation, peripheral arterial disease, diabetes, hypertension but
also has been prone to orthostatic hypotension requiring as needed midodrine as an outpatient.
He is now clinically improving with intravenous diuretic therapy.
-Continue IV Lasix diuresis (Lasix 40 mg IV twice daily)
-Check echocardiogram on Thursday
-Add Toprol-XL 25 mg daily
-Trend troponins which are mildly elevated likely to non-IN elevation (EKG stable) from decompensated congestive heart failure.
Original Note:
Consultation
Consultation Request
Date/Time Consultation Performed: 07/18/23
Requesting Provider: Dr. Nath
Performing Provider: Radha Irizarry PA-C for Dr. Juliocesar Lee
Reason for Consultation: CHF
Medical History
-
Chief Complaint: SOB
History of Present Illness:
Patient is a 73-year-old male with past medical history of prior mixed ischemic/nonischemic cardiomyopathy with recovered EF by echo 2022, chronic heart failure, history of CABG, LAD EXECUTIVE COORDINATOR, bioprosthetic MVR, PAD status post stenting, paroxysmal A-fib
on Eliquis, COPD, TIA with left CEA 02/2023 who presents to [facility] for evaluation of shortness of breath. On 07/13 he presented to the ER for dyspnea. He was given a dose of IV Lasix x 1 and his p.o. dose was increased from alternating
20 and 40 mg dosing to 40 mg daily for several days. On 07/16/2023 he underwent TURBT by Dr. Shields. He did not take Lasix that day. Yesterday he called cardiology office as he had noted he gained 3 pounds overnight, and was told to take the 40
mg p.o. Lasix daily as previously instructed. He reports then upon going upstairs to bed he developed significant shortness of breath with associated heart racing and presented to [facility]. He initially required BiPAP, now weaned to
supplemental oxygen. proBNP 1220. No chest pain, however troponin up to 0.207. Cardiology consulted for evaluation.
PMH:
-concern for bladder cancer s/p TURBT 07/16/23, pathology pending
-ER visit 07/13 for dyspnea, CHF
-chronic HFpEF
-CM EF 15-20% by echo Jan 2020 with EF 30% by echo 04/20/19 with h/o recovered CM EF 65% by echo 05/2022
-CAD s/p CABG 02/2014 with occluded QUIÑONES to LAD by cath 2019, but patent SVG seq to Diag-OM-PDA
-CAD s/p unsuccessful attempted PCI of LAD EXECUTIVE COORDINATOR 03/07/16
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
-PAD s/p right femoral endarterectomy and right iliac stenting 02/2016
-PAD s/p right SFA and popliteal TIRE CHANGER and stent 10/24/19
-possible TIA with noted L carotid stenosis s/p L CEA 03/03/23
-Paroxysmal Afib on chronic eliquis
-HTN
-Moderate to severe chronic obstructive pulmonary disease
-DM2 with Diabetic neuropathy
-Pulmonary HTN
-Hx prostate cancer s/p surgery 2007
-Medical marijuana use
-former smoker
Past Medical History
Past Medical History: Other (in HPI)
Social History
Tobacco: Former Smoker
Personal:
Living: With Family
Employment: Retired
Allergies / Home Medications
Allergy/AdvReac Type Severity Reaction Status Date / Time
fish derived Allergy SEAFOOD-HIV Verified 07/18/23 02:24
ES
�Medication �Instructions �Recorded �Confirmed �Type
atorvastatin 80 mg tablet 80 mg PO QPM High cholesterol 01/19/20 07/18/23 History
furosemide 40 mg tablet 40 mg PO DAILY Fluid 12/19/22 07/18/23 History
Retention/Swelling
gabapentin 600 mg tablet 600 mg PO TID Pain 12/19/22 07/18/23 History
zolpidem 5 mg tablet 5 mg PO HSPRN PRN sleep 12/19/22 07/18/23 History
acetaminophen 325 mg tablet 650 mg (2 x 325 mg) PO Q4HPRN PRN 12/22/22 07/18/23 Rx
mild pain/BRAVO/temp> 100.4F #100 tabs
midodrine 5 mg tablet 5 mg PO TIDPRN PRN dizziness #10 02/07/23 07/18/23 Rx
tabs
oxycodone 10 mg tablet 10 mg PO Q6H PRN Pain 02/26/23 07/18/23 History
aspirin 81 mg tablet,delayed 81 mg PO DAILY #30 tabs 02/27/23 07/18/23 Rx
release
glipizide 2.5 mg tablet, extended 2.5 mg PO QPM Diabetes #0 tabs 02/27/23 07/18/23 Rx
release 24 hr
metformin 1,000 mg tablet 1,000 mg PO BID Diabetes #0 tabs 02/27/23 07/18/23 Rx
docusate sodium 100 mg capsule 100 mg PO DAILY PRN Constipation 03/03/23 07/18/23 History
apixaban 5 mg tablet (Eliquis) 5 mg PO BID #60 tabs 03/04/23 07/18/23 Rx
lactulose 10 gram/15 mL oral 30 ml PO DAILY PRN constipation 07/14/23 07/18/23 History
solution
docusate sodium 50 mg tablet 50 mg PO DAILY PRN constipation 07/18/23 07/18/23 History
morphine 15 mg tablet,extended 30 mg PO Q8 Pain 07/18/23 07/18/23 History
release
polyethylene glycol 3350 17 gram 17 g PO DAILY PRN constipation 07/18/23 07/18/23 History
oral powder packet ([employer])
Review of Systems
-
History Source: Patient
All other systems: Negative unless noted
Physical Exam
Vital Signs
Temp Pulse Resp BP Pulse Ox
98.2 F 82 12 112/65 99
07/18/23 07:35 07/18/23 09:00 07/18/23 09:00 07/18/23 09:00 07/18/23 09:04
Lab Results
07/18/23 09:21
07/18/23 09:21
Troponin I 0.207 ng/ml H* D 07/18/23 09:21
Xjc-P-Djhlhntlwvm Pept 1220 pg/ml 07/18/23 02:36
Physical Exam
General: No Apparent Distress, Comfortable and Other (on supp O2)
HEENT: Normocephalic, Anicteric and Moist Mucous Membranes
Respiratory: Crackles and Non Labored Respirations
Cardiac: S1/S2, Regular Rhythm and Murmur
GI: Soft, Non Tender, Non Distended and Normal Bowel Sounds
Musculoskeletal: No Clubbing, No Cyanosis and No Edema
Skin: Warm and Dry
Neuro: AO x 3
Impression / Plan
-
Primary Caustic Plant Worker: Dr. Garcia
Assessment:
-Presentation with SOB
-Acute Hypoxemic Respiratory Failure, requiring BiPAP
-Acute on Chronic HFpEF
-Elevated troponin
-concern for bladder cancer s/p TURBT 07/16/23, pathology pending
-ER visit 07/13 for dyspnea, CHF
-chronic HFpEF
-CM EF 15-20% by echo Jan 2020 with EF 30% by echo 04/20/19 with h/o recovered CM EF 65% by echo 05/2022
-CAD s/p CABG 02/2014 with occluded QUIÑONES to LAD by cath 2019, but patent SVG seq to Diag-OM-PDA
-CAD s/p unsuccessful attempted PCI of LAD EXECUTIVE COORDINATOR 03/07/16
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
-PAD s/p right femoral endarterectomy and right iliac stenting 02/2016
-PAD s/p right SFA and popliteal TIRE CHANGER and stent 10/24/19
-possible TIA with noted L carotid stenosis s/p L CEA 03/03/23
-Paroxysmal Afib on chronic eliquis
-HTN
-Moderate to severe chronic obstructive pulmonary disease
-DM2 with Diabetic neuropathy
-Pulmonary HTN
-Hx prostate cancer s/p surgery 2007
-Medical marijuana use
-former smoker
ECHO 08/2022: Mild LVH, mid to apical anterior and anteroseptal hypokinesis, EF 50%, bioprosthetic mitral valve with peak/mean gradients 10/6 mmHg, GASTON 1.5 cm�, trace MR, dilated left atrium, aortic sclerosis, normal right heart cardiac
CATH 2019: Left main and three-vessel false pass coronary total occlusions, patent sequential SVG to diagonal/OM/PDA with collaterals to LAD, and occluded QUIÑONES to LAD, anterolateral wall hypokinesis with mild LV dysfunction
Plan:
-Patient is a 73-year-old male who presents with acute onset shortness of breath/pulmonary edema. He initially required BiPAP, now weaned to supplemental oxygen and IV nitro gtt
-proBNP 1220. Chest x-ray with increased pulmonary vascularity consistent with mild CHF with underlying chronic fibrotic change
-He has known underlying coronary disease which is on revascularizable felt to be the etiology of his recurrent heart failure
-Of note he did skip a dose of Lasix in the setting of his TURBT procedure 07/15
-Will continue diuresis with IV Lasix. Outpatient Lasix dose recently increased from cardiac alternating 40/20 mg every other day to 40 mg daily after ER visit 07/13 for dyspnea
-Last echo 08/2022 with EF 50%, would repeat this admission
-Troponin up to 0.2, trend to peak. No chest pain. EKG NSR. last cath from 2019 with results as above
-continue asa, eliquis. hgb 10.6
-continue lipitor
-He had prior orthostatic hypotension, and is not presently on any guideline directed medical therapy for his coronary disease/CHF. He takes midodrine on an as-needed basis as an outpatient. BPs appear stable. Would consider addition of low-dose
Toprol as blood pressure allows
Data Reviewed
-
EKG: Tracing Personally Visualized and interpreted
Radiology: Report Reviewed by me
Medical Tests (Nuc Med, Echo etc): Report Reviewed by me
Labs: Labs Reviewed by me
[2023-07-18] MEDS: TOPROL XL 12.5 MG PO (11:38)
--- NOTE | 2023-07-18 12:15 | W.PN.HOSP.TC ---
Today's Communication/Plan
-
IV Lasix
ECHO Thursday
Assessment / Plan
Assessment / Plan
71-year-old male admitted because of shortness of breath. He was seen in the emergency room on July 13 for shortness of breath and was treated for heart failure by increasing Lasix to 40 mg daily. Patient skipped a dose of Lasix by he got the
surgery on 07/16/2023. States he feels better after the Lasix.
On examination cardiovascular system S1-S2 appreciated, systolic murmur at apex
Chest-no rales
Abdomen soft and nontender
No pedal edema
# Acute on chronic heart failure with preserved ejection fraction
Chest x-ray reviewed by me
History of cardiomyopathy with EF 15-20% by echo Jan 2020 , then EF 30% by echo 04/20/19 with h/o recovered CM EF 65% by echo 05/2022
Continue Lasix 40 mg IV twice daily
Toprol-XL 25 mg added
Elevated troponin noted-trend
Check echo-routine
# Coronary disease with CABG in 2013
Unsuccessful attempted PCI of LAD BASEBALL PLAYER 03/07/16
Occluded QUIÑONES to LAD by cath 2019
Continue statin, aspirin
# Bioprosthetic mitral valve replacement 2013
#Peripheral artery disease with history of right femoral endarterectomy and right iliac stenting 2015
Right SFA and popliteal DIRECTOR OF INSTRUCTION and stenting in 2019
continue aspirin and statin
# Status post TURBT on 07/16/2023
Pathology pending
Cramer catheter placed for intake output charting in the emergency room was taken out after discussion with Dr. Shields
Bladder scan ordered
#Anemia- Check Iron studies

# History of TIA with left carotid stenosis status post CEA March 03, 2023-aspirin and statin
# Paroxysmal atrial fibrillation-on Eliquis.
Was not on any rate controlling agents as outpatient
Beta-heath started now
# Hypertension-history of chronic hypotension therefore not on any medicines as outpatient
Beta-blockers added-watch blood pressure
# COPD-Stable.
# Chronic hypotension on midodrine
# Diabetes with diabetic neuropathy
Continue metformin thousand twice daily, glipizide 2.5 mg daily, sliding cell coverage
Continue gabapentin
# Hyperlipidemia-continue statin
# Pulmonary hypertension
# History of prostate cancer with prostatectomy in 2008
# Medical marijuana use
# Left foot drop
# Chronic pain opiate dependent. Also on gabapentin .
# Insomnia - Ambien as outpatient
# [id number] in 2007
# DVT prophylaxis-Eliquis
# Full code
D/W Urology
D/W RN
Anticipated Discharge: > 48 hours
Subjective/Interval History
-
Date of Service: July 18, 2023
Objective Data
-
Labs:
Laboratory Results
07/18/23 07/18/23
02:36 09:21
WBC 15.7 H 10.6
Hgb 11.8 L 10.6 L
Hct 35.1 L 31.6 L
Plt Count 266 D 204 D
Sodium 137 136
Potassium 4.1 4.9
Chloride 99 98
Carbon Dioxide 23 32 H
BUN 28 H 30 H
Creatinine 1.0 1.0
Glucose 189 H 111 H
Calcium 9.0 8.7
Total Bilirubin 0.8
AST 30
ALT 16
Alkaline Phosphatase 134 H
Vital Signs:
Vital Signs
Temp Pulse Resp BP Pulse Ox
98.2 F 85 11 112/60 97
07/18/23 07:35 07/18/23 11:38 07/18/23 11:00 07/18/23 11:38 07/18/23 11:00
I&O
07/17/23 07/18/23 07/19/23
06:59 06:59 06:59
Intake Total 240 / 240
Output Total 1250 / 1250 1500 / 1500
Balance -1250 / -1250 -1260 / -1260
[2023-07-18 13:14] LABS: Troponin I 0.227 ng/ml
[2023-07-18] MEDS: GLUCOPHAGE 1000 MG PO (16:08)
[2023-07-18] MEDS: ROXICODONE 10 MG PO (16:08)
[2023-07-18] MEDS: GLUCOTROL XL (EXTENDED RELEASE) 2.5 MG PO (18:08)
[2023-07-18] MEDS: LIPITOR 80 MG PO (18:08)
[2023-07-18 19:12] LABS: Troponin I 0.131 ng/ml
[2023-07-18] MEDS: COLACE PO (20:18)
[2023-07-18] MEDS: BACTRIM DS 800 MG/160 MG 1 TABLET PO (20:19)
[2023-07-18] MEDS: SENOKOT 17.1999999999999993 MG PO (20:19)
[2023-07-18 22:00] LABS: Glucose - Point of Care 109 mg/dl (70-99)
--- NOTE | 2023-07-18 22:35 | PTCARENOTE ---
Received pt from previous shift. aaox3, pleasant, family at bedside. Had o2 out when assessed patient, sao2 95%, no SOB. SR w/ prolonged QT. No pain. Remains in bed, encouraged pt to start moving around & getting OOB to chair for meals. No swelling.
Lungs clear. No other issues at this time. Will continue to monitor.
[2023-07-19] VITALS (15 sets, daily range): BP systolic 90–122; BP diastolic 47–71; PULSE 77; O2SAT 95; BMI 22.5
[2023-07-19 06:30] LABS: Blood Urea Nitrogen 25 mg/dl (9-20); Calcium 9.3 mg/dl (8.4-10.2); Carbon Dioxide 33 mmol/L (22-30); Chloride 97 mmol/L (98-107); Estimated Creatinine Clearance 75 ml/min; Glucose 97 mg/dl (70-99); Potassium 4.8 mmol/L (3.5-5.1); Sodium 135 mmol/L (135-145); eGFR > 60.00
[2023-07-19 06:40] LABS: Hematocrit 33.7 % (39.0-52.0); Hemoglobin 11.3 g/dL (13.0-18.0); Mean Corp Hgb Conc. 33.5 g/dL (33.0-37.0); Mean Corpuscular Hgb 27.5 pg (27.0-31.0); Mean Platelet Volume 11.1 fL (7.4-10.4); Platelet Count 214 10^3/uL (130-400); Red Blood Cell Count 4.11 10^6/uL (4.70-6.10); Red Cell Dist. Width 15.3 % (11.5-14.5); White Blood Cell Count 8.4 10^3/uL (4.8-10.8)
[2023-07-19] MEDS: BACTRIM DS 800 MG/160 MG 1 TABLET PO ×2 (08:50→20:55)
[2023-07-19] MEDS: LASIX 40 MG IV ×2 (08:50→15:47)
[2023-07-19] MEDS: NEURONTIN 600 MG PO ×3 (08:50→20:51)
[2023-07-19] MEDS: COLACE 100 MG PO ×4 (08:51→20:51)
[2023-07-19] MEDS: ASPIR LOW (ENTERIC COATED) 81 MG PO (08:52)
[2023-07-19] MEDS: SENOKOT 17.1999999999999993 MG PO ×2 (08:52→20:51)
[2023-07-19] MEDS: TOPROL XL 12.5 MG PO (08:52)
[2023-07-19] MEDS: GLUCOPHAGE 1000 MG PO ×2 (08:53→15:50)
[2023-07-19] MEDS: MS CONTIN (EXTENDED RELEASE) 15 MG PO ×3 (08:53→23:05)
[2023-07-19] MEDS: ELIQUIS 5 MG PO ×2 (08:53→20:51)
[2023-07-19] MEDS: MIRALAX 17 GRAMS PO (08:53)
--- NOTE | 2023-07-19 11:15 | W.PN.HOSP.TC ---
Today's Communication/Plan
-
Weight is coming down
Echo tomorrow
Assessment / Plan
Assessment / Plan
71-year-old male admitted because of shortness of breath. He was seen in the emergency room on July 13 for shortness of breath and was treated for heart failure by increasing Lasix to 40 mg daily. Patient skipped a dose of Lasix by he got the
surgery on 07/16/2023. States he feels better after the Lasix.
On examination cardiovascular system S1-S2 appreciated, systolic murmur at apex
Chest-no rales
Abdomen soft and nontender
No pedal edema
# Acute on chronic heart failure with preserved ejection fraction
Chest x-ray reviewed by me
History of cardiomyopathy with EF 15-20% by echo Jan 2020 , then EF 30% by echo 04/20/19 with h/o recovered CM EF 65% by echo 05/2022
Continue Lasix 40 mg IV twice daily
Toprol-XL 25 mg added
Elevated troponin nonischemic myocardial injury likely secondary to CHF
Check echo-routine
# Coronary disease with CABG in 2013
Unsuccessful attempted PCI of LAD ORNAMENTAL METALWORK DESIGNER 03/07/16
Occluded QUIÑONES to LAD by cath 2019
Continue statin, aspirin
# Bioprosthetic mitral valve replacement 2013
#Peripheral artery disease with history of right femoral endarterectomy and right iliac stenting 2015
Right SFA and popliteal DIRECTOR INVESTMENT BANKING and stenting in 2019
continue aspirin and statin
# Status post TURBT on 07/16/2023
Pathology pending
Cramer catheter placed for intake output charting in the emergency room was taken out after discussion with Dr. Shields
Bladder scan ordered. Patient has no difficulty voiding

# History of TIA with left carotid stenosis status post CEA March 03, 2023-aspirin and statin
# Paroxysmal atrial fibrillation-on Eliquis.
Was not on any rate controlling agents as outpatient
Beta-heath started now
# Hypertension-history of chronic hypotension therefore not on any medicines as outpatient
Beta-blockers added-watch blood pressure
# COPD-Stable.
# Chronic hypotension on midodrine
# Diabetes with diabetic neuropathy
Continue metformin thousand twice daily, glipizide 2.5 mg daily, sliding cell coverage
Continue gabapentin
# Hyperlipidemia-continue statin
# Pulmonary hypertension
# History of prostate cancer with prostatectomy in 2008
# Medical marijuana use
# Chronic left foot drop
# Chronic pain opiate dependent. Also on gabapentin .
# Insomnia - Ambien as outpatient
# [id number] in 2007
# DVT prophylaxis-Eliquis
# Full code
D/W RN
Anticipated Discharge: Within 24 hours
Subjective/Interval History
-
Date of Service: July 19, 2023
Objective Data
-
Labs:
Laboratory Results
07/19/23
06:12
WBC 8.4
Hgb 11.3 L
Hct 33.7 L
Plt Count 214
Sodium 135
Potassium 4.8
Chloride 97 L
Carbon Dioxide 33 H
BUN 25 H
Creatinine 1.0
Glucose 97
Calcium 9.3
Vital Signs:
Vital Signs
Temp Pulse Resp BP Pulse Ox
98.2 F 72 11 121/61 96
07/19/23 07:38 07/19/23 06:00 07/19/23 06:00 07/19/23 06:00 07/19/23 02:00
I&O
07/18/23 07/19/23 07/20/23
06:59 06:59 06:59
Intake Total 240 / 240
Output Total 1250 / 1250 1850 / 1850
Balance -1250 / -1250 -1610 / -1610
--- NOTE | 2023-07-19 11:36 | W.PN.CARDCBS ---
Today's Communication / Plan
-
Continue diuresis with IV Lasix 40 mg IV twice daily.
Echocardiogram on Thursday
No plan for ischemic evaluation this hospital stay unless becomes unstable
Will add low-dose Toprol, 12.5 mg daily
Impression / Plan
-
Primary Composition Instructor: Dr. Garcia
Assessment:
-Presentation with SOB
-Acute Hypoxemic Respiratory Failure, requiring BiPAP
-Acute on Chronic HFpEF
-Elevated troponin
-concern for bladder cancer s/p TURBT 07/16/23, pathology pending
-ER visit 07/13 for dyspnea, CHF
-chronic HFpEF
-CM EF 15-20% by echo Jan 2020 with EF 30% by echo 04/20/19 with h/o recovered CM EF 65% by echo 05/2022
-CAD s/p CABG 02/2014 with occluded QUIÑONES to LAD by cath 2019, but patent SVG seq to Diag-OM-PDA
-CAD s/p unsuccessful attempted PCI of LAD DIRECTOR EXPORT 03/07/16
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
-PAD s/p right femoral endarterectomy and right iliac stenting 02/2016
-PAD s/p right SFA and popliteal HEART DOCTOR and stent 10/24/19
-possible TIA with noted L carotid stenosis s/p L CEA 03/03/23
-Paroxysmal Afib on chronic eliquis
-HTN
-Moderate to severe chronic obstructive pulmonary disease
-DM2 with Diabetic neuropathy
-Pulmonary HTN
-Hx prostate cancer s/p surgery 2007
-Medical marijuana use
-former smoker
ECHO 08/2022: Mild LVH, mid to apical anterior and anteroseptal hypokinesis, EF 50%, bioprosthetic mitral valve with peak/mean gradients 10/6 mmHg, GASTON 1.5 cm�, trace MR, dilated left atrium, aortic sclerosis, normal right heart cardiac
CATH 2019: Left main and three-vessel [place] coronary total occlusions, patent sequential SVG to diagonal/OM/PDA with collaterals to LAD, and occluded QUIÑONES to LAD, anterolateral wall hypokinesis with mild LV dysfunction
Plan:
Patient is a 73-year-old male who presents with acute onset shortness of breath/pulmonary edema. He initially required BiPAP, then weaned to supplemental oxygen and IV nitro gtt. On adm, proBNP 1220 and Chest XRay with increased pulmonary
vascularity consistent with mild CHF with underlying chronic fibrotic change. Of note he did skip a dose of Lasix in the setting of his TURBT procedure 07/15
He has known underlying coronary disease which is unrevascularizable. Troponin peak at 0.227 which is felt to be non-MO and related to his decompensated heart failure.
Heart failure with preserved ejection fraction
-With IV Lasix diuresis, weight is coming down (weight is down 2.5 pounds overnight and approximately 6.5 pounds since admission ).
Fluid balance -1850 mL overnight. Renal function stable
Will continue diuresis with IV Lasix 40 mg IV twice daily.
Echocardiogram on Thursday (last echo 08/2022 with EF 50%)
Known coronary artery disease and mildly elevated troponin
-Troponin up to 0.227. No chest pain. EKG stable. Cath from 2019 with results as above with plan for medical management as he is felt to be unrevascularizable.
No plan for ischemic evaluation this hospital stay unless becomes unstable
Maintain statin and aspirin
Paroxysmal atrial fibrillation
-Maintaining sinus rhythm
Continue Eliquis, hemoglobin stable
He has history of orthostatic hypotension which is limited guideline directed medical therapy for his coronary disease/CHF. He takes midodrine on an as-needed basis as an outpatient. BPs this admission appear stable.
07/17 added low-dose Toprol, 12.5 mg daily
Progress Note - Composition Instructor
Subjective
Date of Service: July 19, 2023
No new complaints today. No chest pain or shortness of breath.
Objective
Labs:
07/19/23 06:12
07/19/23 06:12
Labs
Hgb 11.3 g/dL (13.0-18.0) L 07/19/23 06:12
Hct 33.7 % (39.0-52.0) L 07/19/23 06:12
Plt Count 214 10^3/uL (130-400) 07/19/23 06:12
Sodium 135 mmol/L (135-145) 07/19/23 06:12
Potassium 4.8 mmol/L (3.5-5.1) 07/19/23 06:12
BUN 25 mg/dl (9-20) H 07/19/23 06:12
Creatinine 1.0 mg/dL (0.7-1.3) 07/19/23 06:12
Glucose 97 mg/dl (70-99) 07/19/23 06:12
Troponins
07/18/23 07/18/23 07/18/23
02:36 09:21 12:37
Troponin I < 0.012 0.207 H* D 0.227 H*
07/18/23
18:27
Troponin I 0.131 H* D
Vital Signs and I&O:
Vital Signs
Temp Pulse Resp BP Pulse Ox
98.2 F 72 11 12161 96
07/19/23 07:38 07/19/23 06:00 07/19/23 06:00 07/19/23 06:00 07/19/23 02:00
Vital Signs
Temp Pulse Resp BP Pulse Ox
98.2 F 72 11 12161 96
07/19/23 07:38 07/19/23 06:00 07/19/23 06:00 07/19/23 06:00 07/19/23 02:00
Intake & Output
07/17/23 07/18/23 07/19/23 07/20/23
06:59 06:59 06:59 06:59
Intake Total 240 / 240
Output Total 1250 / 1250 1850 / 1850
Balance -1250 / -1250 -1610 / -1610
Physical Exam
Physical Exam
Well-appearing, no acute distress
Regular rate and rhythm normal S1 and S2 no S3 no sore to be 1/2 difficult heart murmur no rubs
Lungs are clear to auscultation bilaterally
--- NOTE | 2023-07-19 13:30 | PTCARENOTE ---
Assumed care of pt from previous shift. Pt is AAOx3, pleasant. Pt 96% on RA. SOB w/ exertion. Lungs CTA. NSR on the monitor. VSS. Pt OOB minimally, full assessment is as documented in worklist.
[2023-07-19] MEDS: FLEET MINERAL OIL ENEMA 133 ML RECTAL (15:04)
--- NOTE | 2023-07-19 15:27 | PTCARENOTE ---
Fleet enema ordered for constipation, + effect.
[2023-07-19] MEDS: ROXICODONE 10 MG PO ×2 (15:46→23:09)
[2023-07-19] MEDS: LIPITOR 80 MG PO (17:52)
[2023-07-19] MEDS: GLUCOTROL XL (EXTENDED RELEASE) 2.5 MG PO (17:52)
[2023-07-20] VITALS (15 sets, daily range): BP systolic 85–136; BP diastolic 44–88; BMI 22.5
[2023-07-20] MEDS: ROXICODONE 10 MG PO (06:16)
[2023-07-20 06:19] LABS: Blood Urea Nitrogen 27 mg/dl (9-20); Calcium 8.8 mg/dl (8.4-10.2); Carbon Dioxide 30 mmol/L (22-30); Chloride 98 mmol/L (98-107); Estimated Creatinine Clearance 75 ml/min; Glucose 87 mg/dl (70-99); Potassium 4.2 mmol/L (3.5-5.1); Sodium 133 mmol/L (135-145); eGFR > 60.00
[2023-07-20] MEDS: NEURONTIN 600 MG PO ×3 (07:34→21:59)
[2023-07-20] MEDS: MS CONTIN (EXTENDED RELEASE) 15 MG PO ×3 (07:34→23:31)
[2023-07-20] MEDS: GLUCOPHAGE 1000 MG PO ×2 (07:36→18:45)
[2023-07-20] MEDS: ASPIR LOW (ENTERIC COATED) 81 MG PO (07:36)
[2023-07-20] MEDS: SENOKOT 17.1999999999999993 MG PO ×2 (07:37→20:09)
[2023-07-20] MEDS: COLACE 100 MG PO ×2 (07:37→20:09)
[2023-07-20] MEDS: BACTRIM DS 800 MG/160 MG 1 TABLET PO (07:37)
[2023-07-20] MEDS: TOPROL XL 12.5 MG PO (07:37)
[2023-07-20] MEDS: ELIQUIS 5 MG PO (07:37)
[2023-07-20] MEDS: MIRALAX 17 GRAMS PO (07:38)
[2023-07-20] MEDS: LASIX 40 MG IV ×2 (07:38→15:03)
[2023-07-20] MEDS: COLACE PO (07:38)
--- NOTE | 2023-07-20 10:43 | W.PN.HOSP.TC ---
Today's Communication/Plan
-
ECHO
Wrigh at baseline
? discharge if ECHO OK
Assessment / Plan
Assessment / Plan
71-year-old male admitted because of shortness of breath. He was seen in the emergency room on July 13 for shortness of breath and was treated for heart failure by increasing Lasix to 40 mg daily. Patient skipped a dose of Lasix by he got the
surgery on 07/16/2023. States he feels better after the Lasix.
On examination cardiovascular system S1-S2 appreciated, systolic murmur at apex
Chest-no rales
Abdomen soft and nontender
No pedal edema
# Acute on chronic heart failure with preserved ejection fraction
Chest x-ray reviewed by me
History of cardiomyopathy with EF 15-20% by echo Jan 2020 , then EF 30% by echo 04/20/19 with h/o recovered CM EF 65% by echo 05/2022
Continue Lasix 40 mg IV twice daily
Toprol-XL 25 mg added
Elevated troponin nonischemic myocardial injury likely secondary to CHF
Check echo-routine
weight down to 79.5 kg
# Coronary disease with CABG in 2013
Unsuccessful attempted PCI of LAD COMMUNITY RELATIONS ASSISTANT 03/07/16
Occluded QUIÑONES to LAD by cath 2019
Continue statin, aspirin
# Bioprosthetic mitral valve replacement 2013
#Peripheral artery disease with history of right femoral endarterectomy and right iliac stenting 2015
Right SFA and popliteal HARNESS INSTALLER and stenting in 2019
continue aspirin and statin
# Status post TURBT on 07/16/2023
Pathology pending
Cramer catheter placed for intake output charting in the emergency room was taken out after discussion with Dr. Shields
Bladder scan ordered. Patient has no difficulty voiding

# History of TIA with left carotid stenosis status post CEA March 03, 2023-aspirin and statin
# Paroxysmal atrial fibrillation-on Eliquis.
Was not on any rate controlling agents as outpatient
Beta-heath started now
# Hypertension-history of chronic hypotension therefore not on any medicines as outpatient
Beta-blockers added-watch blood pressure
# COPD-Stable.
# Chronic hypotension on midodrine
# Diabetes with diabetic neuropathy
Continue metformin thousand twice daily, glipizide 2.5 mg daily, sliding cell coverage
Continue gabapentin
# Hyperlipidemia-continue statin
# Pulmonary hypertension
# History of prostate cancer with prostatectomy in 2008
# Medical marijuana use
# Chronic left foot drop
# Chronic pain opiate dependent. Also on gabapentin .
# Insomnia - Ambien as outpatient
# [id number] in 2007
# DVT prophylaxis-Eliquis
# Full code
D/W RN
Anticipated Discharge: Within 24 hours
Subjective/Interval History
-
Date of Service: July 20, 2023
Objective Data
-
Labs:
Laboratory Results
07/20/23
05:31
Sodium 133 L
Potassium 4.2
Chloride 98
Carbon Dioxide 30
BUN 27 H
Creatinine 1.0
Glucose 87
Calcium 8.8
Vital Signs:
Vital Signs
Temp Pulse Resp BP Pulse Ox
97.7 F 76 12 118/58 97
07/20/23 07:47 07/20/23 08:00 07/20/23 08:00 07/20/23 07:38 07/20/23 10:10
I&O
07/19/23 07/20/23 07/21/23
06:59 06:59 06:59
Intake Total 240 / 240 700 / 700
Output Total 1850 / 1850 1100 / 1100
Balance -1610 / -1610 -400 / -400
--- NOTE | 2023-07-20 10:48 | PTCARENOTE ---
Asusmed care of Pt at shift change; Complained of 10/10 neuropathic pain in hands and feet - medicated as needed. Pt using urinal; OOB to bathroom with assist. NSR on monitor. Continues with IV lasix and pain management. Will continue to
monitor and assess
--- NOTE | 2023-07-20 12:12 | W.PN.CARDCBS ---
Addendum entered and electronically signed by Chris Garcia DO 07/20/23 17:56:
I saw and examined the patient.
The Cmm Programmer's note was reviewed and I agree with the note.
Comment:
Plan:
Would continue IV diuresis another 24 hours and if continues to improve, consider transition to oral Lasix.
Check echocardiogram to reevaluate left trickle systolic function and history bio MVR
Continue medical therapy for nonrevascularizable significant CAD with past CABG and known ROUSTABOUT PUSHER LAD.
PT/OT evaluation for deconditioning.
Wean O2
Original Note:
Today's Communication / Plan
-
Echo today
Continue IV diuresis for another 24 hours
Wean oxygen
PT/OT
Impression / Plan
-
PCP: Dr. Sivakumar Patel
Primary Daycare Teacher: Dr. Garcia
Assessment:
-Presented 07/18/23 with SOB
-Acute Hypoxemic Respiratory Failure, requiring BiPAP
-Acute on Chronic HFpEF, proBNP 1220
-Elevated troponin, peaked 0.227
-concern for bladder cancer s/p TURBT 07/16/23, pathology pending
-ER visit 07/13 for dyspnea, CHF
-chronic HFpEF
-CM EF 15-20% by echo Jan 2020 with EF 30% by echo 04/20/19 with h/o recovered CM EF 65% by echo 05/2022
-CAD s/p CABG 02/2014 with occluded QUIÑONES to LAD by cath 2019, but patent SVG seq to Diag-OM-PDA
-CAD s/p unsuccessful attempted PCI of LAD ROUSTABOUT PUSHER 03/07/16
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
-PAD s/p right femoral endarterectomy and right iliac stenting 02/2016
-PAD s/p right SFA and popliteal PATIENT ASSESSMENT COORDINATOR and stent 10/24/19
-possible TIA with noted L carotid stenosis s/p L CEA 03/03/23
-Paroxysmal Afib on chronic eliquis
-HTN
-Moderate to severe chronic obstructive pulmonary disease
-DM2 with Diabetic neuropathy
-Pulmonary HTN
-Hx prostate cancer s/p surgery 2007
-Medical marijuana use
-former smoker
Echo 07/20/2023: EF 53%, mild concentric LVH. Bovine mitral valve replacement well-seated peak/mean gradient 20/10 mmHg with MV area 1.4 cm�, moderate MS with mild to moderate MR. Mild TR with PAP 35 mmHg
ECHO 08/2022: Mild LVH, mid to apical anterior and anteroseptal hypokinesis, EF 50%, bioprosthetic mitral valve with peak/mean gradients 10/6 mmHg, GASTON 1.5 cm�, trace MR, dilated left atrium, aortic sclerosis, normal right heart cardiac
CATH 2019: Left main and three-vessel [place] coronary total occlusions, patent sequential SVG to diagonal/OM/PDA with collaterals to LAD, and occluded QUIÑONES to LAD, anterolateral wall hypokinesis with mild LV dysfunction
Plan:
Patient is a 73-year-old male who presents with acute onset shortness of breath/pulmonary edema. He initially required BiPAP, then weaned to supplemental oxygen and IV nitro gtt. On adm, proBNP 1220 and Chest XRay with increased pulmonary
vascularity consistent with mild CHF with underlying chronic fibrotic change. Of note he did skip a dose of Lasix in the setting of his TURBT procedure 07/15
He has known underlying coronary disease which is unrevascularizable. Troponin peak at 0.227 which is felt to be non-ischemic myocardial injury related to his decompensated heart failure.
Heart failure with preserved ejection fraction, proBNP 1220
-Still complaining of feeling short of breath and wearing oxygen
-With IV Lasix diuresis, weight is coming down (weight is down 3 pounds overnight and approximately 7 pounds since admission).
Will continue diuresis with IV Lasix 40 mg IV twice daily.
Echocardiogram on 07/20/23 with stable ejection fraction 53% with mild to moderate MR and moderate MS (last echo 08/2022 with EF 50%)
Wean oxygen as tolerated still requiring 3 lpm nc
Known coronary artery disease and mildly elevated troponin
-Troponin up to 0.227. No chest pain. EKG stable. Cath from 2019 with results as above with plan for medical management as he is felt to be unrevascularizable.
Elevated troponin felt to be nonischemic myocardial injury from decompensated heart failure
No plan for ischemic evaluation this hospital stay unless becomes unstable
Maintain statin and aspirin
Paroxysmal atrial fibrillation
-Maintaining sinus rhythm
Continue Eliquis, hemoglobin stable 11.3
He has history of orthostatic hypotension which is limited guideline directed medical therapy for his coronary disease/CHF. He takes midodrine on an as-needed basis as an outpatient. BPs this admission appear stable.
07/17 added low-dose Toprol, 12.5 mg daily
Patient reports generalized weakness. Evaluated by PT/OT who feel he would benefit most likely from outpatient skilled therapy
Progress Note - Daycare Teacher
Subjective
Date of Service: July 20, 2023
Patient seen and examined. Patient lying in bed. Continues to report feeling weak with shortness of breath. Still wearing oxygen
Objective
Labs:
07/19/23 06:12
07/20/23 05:31
Labs
Hgb 11.3 g/dL (13.0-18.0) L 07/19/23 06:12
Hct 33.7 % (39.0-52.0) L 07/19/23 06:12
Plt Count 214 10^3/uL (130-400) 07/19/23 06:12
Sodium 133 mmol/L (135-145) L 07/20/23 05:31
Potassium 4.2 mmol/L (3.5-5.1) 07/20/23 05:31
BUN 27 mg/dl (9-20) H 07/20/23 05:31
Creatinine 1.0 mg/dL (0.7-1.3) 07/20/23 05:31
Glucose 87 mg/dl (70-99) 07/20/23 05:31
Troponins
07/18/23 07/18/23 07/18/23
02:36 09:21 12:37
Troponin I < 0.012 0.207 H* D 0.227 H*
07/18/23
18:27
Troponin I 0.131 H* D
Vital Signs and I&O:
Vital Signs
Temp Pulse Resp BP Pulse Ox
97.8 F 68 9 107/61 99
07/20/23 11:25 07/20/23 11:53 07/20/23 11:53 07/20/23 11:53 07/20/23 11:53
Vital Signs
Temp Pulse Resp BP Pulse Ox
97.8 F 68 9 107/61 99
07/20/23 11:25 07/20/23 11:53 07/20/23 11:53 07/20/23 11:53 07/20/23 11:53
Intake & Output
07/18/23 07/19/23 07/20/23 07/21/23
06:59 06:59 06:59 06:59
Intake Total 240 / 240 700 / 700
Output Total 1250 / 1250 1850 / 1850 1100 / 1100
Balance -1250 / -1250 -1610 / -1610 -400 / -400
Physical Exam
Physical Exam
GEN: No distress, awake, Ox3, lying in bed, wearing oxygen
HEENT: supple, anicteric, mmm
LUNGS: CTA, no wheezes/rales; on 3 L O2 via nasal cannula
CV: Reg, S1/S2, 2/6 apical murmur
ABD: soft, BS+, NT/ND
EXT: No edema, clubbing or cyanosis; wearing ranjeet stockings
NEURO: Gross non-focal
SKIN: No rash, warm, dry, pink
--- NOTE | 2023-07-20 14:39 | CM ---
Addendum entered by Mindy Saleh 07/20/23 14:50:
Script for outpatient PT requested via text to Attending; text acknowledged
Addendum entered by Mindy Saleh 07/20/23 14:43:
PT recommends Outpatient Physical Therapy
Original Note:
Met with patient; initial assessment completed
Pharmacy verified: [facility], [place]
Patient lives in a multilevel home with his ; 7 steps to enter; 14 steps between floors; powder room on the 1st floor; 2nd floor bath has stall shower with seat
PLOF: reported he is independent with ambulation, ADLs; experiences SOB going up stairs; Drives
SNF/Rehab/Home Health utilization history: SNF stay @ [facility] 2022; [facility]
Transportation: will provide ride home
DME: [employer]
Plan: if ECHO is ok, will be discharged to Home; will monitor for DC needs
[2023-07-20] MEDS: ELIQUIS PO (18:45)
[2023-07-20] MEDS: GLUCOTROL XL (EXTENDED RELEASE) 2.5 MG PO (18:45)
[2023-07-20] MEDS: LIPITOR 80 MG PO (18:45)
--- NOTE | 2023-07-20 21:03 | PTCARENOTE ---
Assumed care of Pt from Day RN. Pt informed RN that his urine has blood tint, and refused Eliquis. Pt has no other complaints at this time. Pt at bed side. Assessment care and vitals as charted.
[2023-07-21] VITALS (13 sets, daily range): BP systolic 97–142; BP diastolic 54–91; PULSE 80; O2SAT 96; BMI 22.2
[2023-07-21] MEDS: TOPROL XL 12.5 MG PO (08:09)
[2023-07-21] MEDS: SENOKOT 17.1999999999999993 MG PO ×2 (08:10→20:04)
[2023-07-21] MEDS: LASIX 40 MG IV (08:10)
[2023-07-21] MEDS: NEURONTIN 600 MG PO ×3 (08:10→22:35)
[2023-07-21] MEDS: COLACE 100 MG PO ×2 (08:10→20:04)
[2023-07-21] MEDS: GLUCOPHAGE 1000 MG PO ×2 (08:10→17:58)
[2023-07-21] MEDS: MS CONTIN (EXTENDED RELEASE) 15 MG PO ×3 (08:10→22:36)
[2023-07-21] MEDS: MIRALAX 17 GRAMS PO (08:11)
[2023-07-21] MEDS: ELIQUIS PO (09:38)
[2023-07-21] MEDS: ASPIR LOW (ENTERIC COATED) 81 MG PO (09:52)
[2023-07-21 10:05] LABS: Hematocrit 33.5 % (39.0-52.0); Hemoglobin 11.3 g/dL (13.0-18.0); Mean Corp Hgb Conc. 33.7 g/dL (33.0-37.0); Mean Corpuscular Hgb 27.5 pg (27.0-31.0); Mean Corpuscular Volume 81.5 fL (80.0-94.0); Platelet Count 231 10^3/uL (130-400); Red Blood Cell Count 4.11 10^6/uL (4.70-6.10); White Blood Cell Count 9.8 10^3/uL (4.8-10.8)
[2023-07-21 10:12] LABS: Blood Urea Nitrogen 27 mg/dl (9-20); Calcium 9.3 mg/dl (8.4-10.2); Carbon Dioxide 31 mmol/L (22-30); Chloride 94 mmol/L (98-107); Estimated Creatinine Clearance 67 ml/min; Glucose 122 mg/dl (70-99); Potassium 4.4 mmol/L (3.5-5.1); Sodium 135 mmol/L (135-145); eGFR > 60.00
--- NOTE | 2023-07-21 10:49 | PTCARENOTE ---
pt aaox3. states chronic pain under control with current meds. pt having bloody urine with small amt clots. Dr Guzman notified. Eliquis placed on hold. pt on room air. breath sounds diminished at base.
--- NOTE | 2023-07-21 11:19 | W.PN.HOSP.TC ---
Today's Communication/Plan
-
Watch hematuria
Aspirin and Eliquis to be held per urology
OK for tele
Assessment / Plan
Assessment / Plan
71-year-old male admitted because of shortness of breath. He was seen in the emergency room on July 13 for shortness of breath and was treated for heart failure by increasing Lasix to 40 mg daily. Patient skipped a dose of Lasix by he got the
surgery on 07/16/2023. States he feels better after the Lasix.
On examination cardiovascular system S1-S2 appreciated, systolic murmur at apex
Chest-no rales
Abdomen soft and nontender
No pedal edema
Has hematuria. Better now
# Acute on chronic heart failure with preserved ejection fraction
Chest x-ray reviewed by me
History of cardiomyopathy with EF 15-20% by echo Jan 2020 , then EF 30% by echo 04/20/19 with h/o recovered CM EF 65% by echo 05/2022
Continue Lasix 40 mg IV twice daily
Toprol-XL 25 mg added
Elevated troponin nonischemic myocardial injury likely secondary to CHF
Echo 07/20/2023-normal LV size. Ejection fraction 53%. Mild concentric LVH. Bovine mitral valve replacement well-seated. Moderate MS. Mild to moderate MR. Mild TR. Compared to August 2022 no MR is present
weight down to 78.3 kg (from 83 kg)
# Coronary disease with CABG in 2013
Unsuccessful attempted PCI of LAD MANUFACTURING FINANCE MANAGER 03/07/16
Occluded QUIÑONES to LAD by cath 2019
Continue statin, aspirin held per Urology
# Bioprosthetic mitral valve replacement 2013
#Peripheral artery disease with history of right femoral endarterectomy and right iliac stenting 2015
Right SFA and popliteal ARMORED VEHICLE OFFICER and stenting in 2019
continue statin. aspirin held per Urology
# Status post TURBT on 07/16/2023 recurrent low grade bladder cancer
Cramer catheter placed for intake output charting in the emergency room was taken out after discussion with Dr. Shields
Patient has no difficulty voiding
Hematuria-aspirin and Eliquis held per urology

# History of TIA with left carotid stenosis status post CEA March 03, 2023- statin.aspirin held per Urology
# Paroxysmal atrial fibrillation- Eliquis held per Urology
Was not on any rate controlling agents as outpatient
Beta-heath started now
# Hypertension-history of chronic hypotension therefore not on any medicines as outpatient
Beta-blockers added-watch blood pressure
# COPD-Stable.
# Chronic hypotension on midodrine
# Diabetes with diabetic neuropathy
Continue metformin thousand twice daily, glipizide 2.5 mg daily, sliding cell coverage
Continue gabapentin
# Hyperlipidemia-continue statin
# Pulmonary hypertension
# History of prostate cancer with prostatectomy in 2008
# Medical marijuana use
# Chronic left foot drop
# Chronic pain opiate dependent. Also on gabapentin .
# Insomnia - Ambien as outpatient
# Zi-xnllop-tezv in 2007
# DVT prophylaxis-Eliquis held per Urology
# Full code
D/W Urology
D/W Cards
D/W RN
Anticipated Discharge: Within 24 hours
Subjective/Interval History
-
Date of Service: July 21, 2023
Objective Data
-
Labs:
Laboratory Results
07/21/23
09:51
WBC 9.8
Hgb 11.3 L
Hct 33.5 L
Plt Count 231
Sodium 135
Potassium 4.4
Chloride 94 L
Carbon Dioxide 31 H
BUN 27 H
Creatinine 1.1
Glucose 122 H
Calcium 9.3
Vital Signs:
Vital Signs
Temp Pulse Resp BP Pulse Ox
97.6 F 71 16 112/54 94
07/21/23 05:39 07/21/23 10:26 07/21/23 10:26 07/21/23 10:26 07/21/23 10:44
I&O
07/20/23 07/21/23 07/22/23
06:59 06:59 06:59
Intake Total 700 / 700 360 / 360
Output Total 1100 / 1100 400 / 400
Balance -400 / -400 -40 / -40
--- NOTE | 2023-07-21 11:20 | W.PN.URO.CBU ---
Today's Communication / Plan
-
Discussed case with Hospitalist
Assessment / Plan
-
Gross painless hematuria with clot passage in a patient 4-5 days s/p TURBT for recurrent low grade bladder cancer
---
Continue to hold Eliquis and aspirin
Monitor voiding
No role for Cramer catheter at this time
Diagnosis
-
Date of Service: July 21, 2023
-
Patient Diagnosis:
Gross hematuria
---
Patient was hospitalized with CHF roughly 24 hours after having undergone an uncomplicated TURBT for recurrent low grade superficial bladder cancer
He had been resumed on aspirin and Eliquis over the weekend and today developed gross painless hematuria with clot passage
He has no dysuria
No frequency or urgency
No feeling of incomplete voiding
No flank or SP pain
Subjective
-
Comfortable
Objective
-
Vital Signs
Temp Pulse Resp BP Pulse Ox
97.6 F 71 16 112/54 94
07/21/23 05:39 07/21/23 10:26 07/21/23 10:26 07/21/23 10:26 07/21/23 10:44
Intake and Output
07/20/23 07/21/23 07/22/23
06:59 06:59 06:59
Intake Total 700 / 700 360 / 360
Output Total 1100 / 1100 400 / 400
Balance -400 / -400 -40 / -40
Intake:
Oral fluids 700 / 700 360 / 360
Output:
Urine, Voided 1100 / 1100 400 / 400
Other:
Number of approximated MODERATE 2
amounts of urine
Laboratory Results
07/21/23 09:51
07/21/23 09:51
Review of Systems
-
Constitutional: No Symptoms
Respiratory: No Symptoms
Abdomen/GI: No Symptoms
: Bleeding
Musculoskeletal: No Symptoms
Neurological: No Symptoms
Physical Exam
-
General - well developed, well nourished, no acute distress
Abdomen - soft, non-tender, no CVAT, no SP pain or fullness
Genitalia - normal
--- NOTE | 2023-07-21 11:46 | W.PN.CARDCBS ---
Today's Communication / Plan
-
Changed to p.o. Lasix
Aspirin and Eliquis on hold for hematuria
Will discontinue aspirin currently well on Eliquis
Restart Eliquis when okay with urology
Discussed with primary service
Impression / Plan
-
PCP: Dr. Sivakumar Patel
Primary Clay Stain Mixer: Dr. Garcia
Impression:
-Presented 07/18/23 with SOB
-Acute Hypoxemic Respiratory Failure, requiring BiPAP
-Acute on Chronic HFpEF, proBNP 1220
-Elevated troponin, peaked 0.227
-concern for bladder cancer s/p TURBT 07/16/23, pathology pending
-ER visit 07/13 for dyspnea, CHF
-chronic HFpEF
-CM EF 15-20% by echo Jan 2020 with EF 30% by echo 04/20/19 with h/o recovered CM EF 65% by echo 05/2022
-CAD s/p CABG 02/2014 with occluded QUIÑONES to LAD by cath 2019, but patent SVG seq to Diag-OM-PDA
-CAD s/p unsuccessful attempted PCI of LAD FINGERNAIL TECHNICIAN 03/07/16
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
-PAD s/p right femoral endarterectomy and right iliac stenting 02/2016
-PAD s/p right SFA and popliteal KNOT TIER and stent 10/24/19
-possible TIA with noted L carotid stenosis s/p L CEA 03/03/23
-Paroxysmal Afib on chronic eliquis
-HTN
-Moderate to severe chronic obstructive pulmonary disease
-DM2 with Diabetic neuropathy
-Pulmonary HTN
-Hx prostate cancer s/p surgery 2007
-Medical marijuana use
-former smoker
Echo 07/20/2023: EF 53%, mild concentric LVH. Bovine mitral valve replacement well-seated peak/mean gradient 20/10 mmHg with MV area 1.4 cm�, moderate MS with mild to moderate MR. Mild TR with PAP 35 mmHg
Echo 08/2022: Mild LVH, mid to apical anterior and anteroseptal hypokinesis, EF 50%, bioprosthetic mitral valve with peak/mean gradients 10/6 mmHg, GASTON 1.5 cm�, trace MR, dilated left atrium, aortic sclerosis, normal right heart cardiac
CATH 2019: Left main and three-vessel [place] coronary total occlusions, patent sequential SVG to diagonal/OM/PDA with collaterals to LAD, and occluded QUIÑONES to LAD, anterolateral wall hypokinesis with mild LV dysfunction
Plan:
Stable cardiology status and off of oxygen
Will change to Lasix 40 mg p.o. twice daily
Eliquis and aspirin on hold with hematuria
Will discontinue aspirin permanently while on Eliquis
Echocardiogram with some degree of bioprosthetic mitral stenosis that can be followed as an outpatient
No plan to address elevated troponin as catheterization in 2019 revealed CAD that was not felt to be amenable to revascularization
Remains in sinus rhythm. Restart Eliquis when okay with urology
Progress Note - Clay Stain Mixer
Subjective
Date of Service: July 21, 2023
No complaints. Has had hematuria.
Objective
Labs:
07/21/23 09:51
07/21/23 09:51
Labs
Hgb 11.3 g/dL (13.0-18.0) L 07/21/23 09:51
Hct 33.5 % (39.0-52.0) L 07/21/23 09:51
Plt Count 231 10^3/uL (130-400) 07/21/23 09:51
Sodium 135 mmol/L (135-145) 07/21/23 09:51
Potassium 4.4 mmol/L (3.5-5.1) 07/21/23 09:51
BUN 27 mg/dl (9-20) H 07/21/23 09:51
Creatinine 1.1 mg/dL (0.7-1.3) 07/21/23 09:51
Glucose 122 mg/dl (70-99) H 07/21/23 09:51
Troponins
07/18/23 07/18/23
12:37 18:27
Troponin I 0.227 H* 0.131 H* D
Vital Signs and I&O:
Vital Signs
Temp Pulse Resp BP Pulse Ox
98.1 F 71 16 112/54 94
07/21/23 07:35 07/21/23 10:07/21/23 10:07/21/23 10:07/21/23 10:44
Vital Signs
Temp Pulse Resp BP Pulse Ox
98.1 F 71 16 112/54 94
07/21/23 07:35 07/21/23 10:26 07/21/23 10:07/21/23 10:07/21/23 10:44
Intake & Output
07/19/23 07/20/23 07/21/23 07/22/23
06:59 06:59 06:59 06:59
Intake Total 240 / 240 700 / 700 360 / 360
Output Total 1850 / 1850 1100 / 1100 400 / 400
Balance -1610 / -1610 -400 / -400 -40 / -40
Physical Exam
Physical Exam
General: Well developed, well nourished in NAD.
Neck: Supple, no JVD, HJR, carotids +2 B/L, no bruits bilaterally.
Heart: Non displaced PMI, RRR, 2/6 basal systolic murmur, No S3, S4, no rubs.
Lungs: Clear to auscultation bilaterally, no wheeze, rhonchi, rubs bilaterally,
normal expiratory phase.
Extremities: No clubbing, cyanosis or edema bilaterally.
Neuro: Grossly nonfocal, awake, alert and oriented x3.
[2023-07-21] MEDS: LASIX 40 MG PO (15:31)
[2023-07-21] MEDS: GLUCOTROL XL (EXTENDED RELEASE) 2.5 MG PO (17:58)
[2023-07-21] MEDS: LIPITOR 80 MG PO (17:58)
--- NOTE | 2023-07-21 20:13 | PTCARENOTE ---
Received pt from ED via wheelchair. Pt ambulated into room without assistance. AAOx3, VSS, no complaints of pain at this time. Oriented to floor, call patel within reach.
[2023-07-21] MEDS: ROXICODONE 10 MG PO (22:35)
[2023-07-22 03:57] VITALS: BP 115/67
[2023-07-22 06:00] VITALS: BMI 22.0
[2023-07-22 07:15] LABS: Hematocrit 31.2 % (39.0-52.0); Hemoglobin 10.4 g/dL (13.0-18.0)
[2023-07-22 07:55] LABS: Albumin 3.8 g/dl (3.5-5.0); Blood Urea Nitrogen 33 mg/dl (9-20); Carbon Dioxide 33 mmol/L (22-30); Chloride 96 mmol/L (98-107); Estimated Creatinine Clearance 57 ml/min; Glucose 69 mg/dl (70-99); Phosphorus 5.7 mg/dl (2.5-4.5); Potassium 5.3 mmol/L (3.5-5.1); Sodium 135 mmol/L (135-145); eGFR 58.37
[2023-07-22] MEDS: GLUCOPHAGE PO (08:11)
[2023-07-22 08:23] LABS: Glucose - Point of Care 209 mg/dl (70-99)
[2023-07-22] MEDS: ROXICODONE 10 MG PO ×3 (08:26→22:05)
[2023-07-22] MEDS: TOPROL XL 12.5 MG PO (08:27)
[2023-07-22] MEDS: SENOKOT 17.1999999999999993 MG PO ×2 (08:28→20:24)
[2023-07-22] MEDS: MIRALAX PO ×2 (08:28→08:32)
[2023-07-22] MEDS: MS CONTIN (EXTENDED RELEASE) 15 MG PO ×3 (08:28→22:04)
[2023-07-22] MEDS: NEURONTIN 600 MG PO ×3 (08:28→22:04)
[2023-07-22] MEDS: LASIX 40 MG PO ×2 (08:28→16:11)
[2023-07-22] MEDS: COLACE 100 MG PO ×2 (08:28→20:24)
[2023-07-22] MEDS: GLUCOPHAGE 1000 MG PO ×2 (08:31→16:12)
--- NOTE | 2023-07-22 09:12 | W.PN.URO.CBU ---
Today's Communication / Plan
-
Cleared for discharge from standpoint
Would continue to hold Eliquis and aspirin until urine clears of visible blood
Assessment / Plan
-
Gross painless hematuria with clot passage in a patient 4-5 days s/p TURBT for recurrent low grade bladder cancer
---
Continue to hold Eliquis and aspirin
Monitor voiding
No role for Cramer catheter at this time
Diagnosis
-
Date of Service: July 22, 2023
-
Patient Diagnosis:
Gross hematuria: resolving
---
Patient was hospitalized with CHF roughly 24 hours after having undergone an uncomplicated TURBT for recurrent low grade superficial bladder cancer
He had been resumed on aspirin and Eliquis over the weekend and today developed gross painless hematuria with clot passage
He has no dysuria
No frequency or urgency
No feeling of incomplete voiding
No flank or SP pain
Subjective
-
Feels well
No dysuria
No SP pain or pressure
Objective
-
Vital Signs
Temp Pulse Resp BP Pulse Ox
97.5 F 75 18 122/56 96
07/22/23 07:30 07/22/23 08:27 07/22/23 07:30 07/22/23 08:27 07/22/23 07:30
Intake and Output
07/21/23 07/22/23 07/23/23
06:59 06:59 06:59
Intake Total 360 / 360 0 / 0
Output Total 400 / 400 250 / 250
Balance -40 / -40 -250 / -250
Intake:
Oral fluids 360 / 360 0 / 0
Output:
Urine, Voided 400 / 400 250 / 250
Other:
Number of approximated MODERATE 2
amounts of urine
Laboratory Results
07/22/23 06:18
07/22/23 06:18
Review of Systems
-
Constitutional: No Symptoms
Respiratory: No Symptoms
Abdomen/GI: No Symptoms
: Bleeding
Neurological: No Symptoms
Physical Exam
-
General - well developed, well nourished, no acute distress
Abdomen - soft, non-tender, no CVAT
Genitalia - normal
Skin - warm & dry with no rash
Neuro - AOx3, no motor deficits
--- NOTE | 2023-07-22 09:53 | W.HF.CON ---
Heart Failure
- LV Function
Left ventricular function study result: LV Ejection fraction >40%
Ejection Fraction Percentage: 53
- ARNI
Patient already on ARNI: No
Heart Failure ARNI Not Indicated: LV Ejection Fraction >/= 40%
- ACEI/ARB
Patient already on ACEI/ARB: No
Heart Failure ACEI/ARB Not Indicated: LV Ejection Fraction > 40%
- Beta Antony
Patient already on Evidence Based Beta Antony: Yes
- Mineralocorticord Receptor Antagonist
Patient already on MRA: No
Heart Failure MRA Not Indicated: LV Ejection Fraction > 40%
- SGLT-2 Inhibitor
Patient already on SGLT-2 Inhibitor: No
Heart Failure SGLT-2 Inhibitor Not Indicated: LV Ejection Fraction >40%
- Afib Anticoagulation
Patient already on Anticoagulation for Afib: No
Heart Failure Afib Anticoagulation Contraindication: Hemorrhagic Tendencies (hematuria)
- NYHA CHF Classification
NYHA CHF Classification Level: Class III - Symptoms w/ min exertion, interferes w/ nml daily activity
- ACC/AHA Stage
ACC/AHA Stage: Stage C: Symptomatic Heart Failure
[2023-07-22 11:10] VITALS: BP 105/47
[2023-07-22] MEDS: ProAmatine 5 MG PO (11:59)
--- NOTE | 2023-07-22 12:00 | PTCARENOTE ---
Patient complains of dizziness with movement. BP 106/50. PRN midodrine administered for SBP less than 110. See MAR.
--- NOTE | 2023-07-22 12:51 | W.PN.CARDCBS ---
Addendum entered and electronically signed by Mario Dao MD 07/22/23 15:50:
I saw and examined the patient.
The Data Architect's note was reviewed and I agree with the note.
Comment:
GEN: No distress, awake, Ox3
HEENT: supple, anicteric, mmm
LUNGS: scatt rhonchi
CV: Reg, S1/S2, /6 syst LSB, no murmur
ABD: soft, BS+, NT/ND
EXT: No edema
NEURO: Gross non-focal
SKIN: No rash
Plan:
Overall feels better. Has diuresed well. Continue Lasix 40 mg p.o. twice daily.
Continue Toprol. Remains in sinus rhythm.
Would resume Eliquis alone once hematuria has improved. Would stop aspirin permanently for now.
Creatinine stable at 1.3.
Plan:
Original Note:
Today's Communication / Plan
-
Resume Eliquis once gross hematuria has cleared
Aspirin has been stopped and should not be restarted while taking Eliquis
Cont higher dose Lasix 40 mg PO BID
Impression / Plan
-
PCP: Dr. Sivakumar Patel
Primary Climate Change Analyst: Dr. Garcia
Impression:
-Presented with SOB 07/18/23
-Recent ER visit for CHF 07/14/23
-Acute hypoxemic respiratory failure, requiring BiPAP
-Acute on chronic HFpEF, proBNP 1220
-Elevated troponin, peaked 0.227
-concern for bladder cancer s/p TURBT 07/16/23, pathology pending
-CM EF 15-20% by echo Jan 2020 with EF 30% by echo 04/20/19 with h/o recovered CM EF 65% by echo 05/2022, EF 53% by echo 07/20/23
-CAD
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
CABG with occluded QUIÑONES to LAD by cath 2019, but patent SVG seq to Diag-OM-PDA 02/2014
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
-PAD s/p right femoral endarterectomy and right iliac stenting 02/2016
-PAD s/p right SFA and popliteal HOME HEALTH CLINICAL LIAISON and stent 10/24/19
-possible TIA with noted L carotid stenosis s/p L CEA 03/03/23
-Paroxysmal Afib
-Chronic Eliquis OAC
-HTN
-Moderate to severe chronic obstructive pulmonary disease
-DM2 with Diabetic neuropathy
-Pulmonary HTN
-Hx prostate cancer s/p surgery 2007
-Medical marijuana use
-former smoker
CATH 2020: Left main and three-vessel [place] coronary total occlusions, patent sequential SVG to diagonal/OM/PDA with collaterals to LAD, and occluded QUIÑONES to LAD, anterolateral wall hypokinesis with mild LV dysfunction
Echo 08/2022: Mild LVH, mid to apical anterior and anteroseptal hypokinesis, EF 50%, bioprosthetic mitral valve with peak/mean gradients 10/6 mmHg, GASTON 1.5 cm�, trace MR, dilated left atrium, aortic sclerosis, normal right heart cardiac
Echo 07/20/2023: EF 53%, mild concentric LVH. Bovine mitral valve replacement well-seated peak/mean gradient 20/10 mmHg with MV area 1.4 cm�, moderate MS with mild to moderate MR. Mild TR with PAP 35 mmHg
Plan:
-Weight is down 11 lbs so far this admission with Lasix IV diuresis. Patient now transitioned to Lasix 40 mg PO BID 07/21/23. Patient was taking Lasix 40 mg PO daily prior to admission.
-EF previously as low as 15-20% by echo in 01/2020, but has since improved and was stable at 53% by echo this admission
-CM regimen includes Toprol XL 12.5 mg daily added this admission. Coreg and lisinopril previously stopped due to hypotension.
-Patient with h/o paroxysmal Afib. SR on tele.
-Outpatient dose of Eliquis 5 mg BID on hold due to hematuria. Urology is following for TURBT 07/16/23. Urology would like to hold Eliquis until urine grossly free of blood.
-Outpatient dose of aspirin has been stopped and should not be restarted while patient is on Eliquis.
-Echo this admission with well-seated tiss MVR and peak/mean 20/10 mmHg and mod MS and mild to mod MR. Last echo 08/2022 mean gradient was 6. Will follow by echo as an outpatient
-Troponin peaked at 0.227. ECG without ischemic change. No new WMA on echo. Will manage as a nonischemic myocardial injury Troponin elevation in the setting of acute HF.
-Cardiology follow up arranged
Progress Note - Climate Change Analyst
Subjective
Date of Service: July 22, 2023
No chest pain, no dysuria
Objective
Labs:
07/22/23 06:18
07/22/23 06:18
Labs
Hgb 10.4 g/dL (13.0-18.0) L 07/22/23 06:18
Hct 31.2 % (39.0-52.0) L 07/22/23 06:18
Plt Count 231 10^3/uL (130-400) 07/21/23 09:51
Sodium 135 mmol/L (135-145) 07/22/23 06:18
Potassium 5.3 mmol/L (3.5-5.1) H 07/22/23 06:18
BUN 33 mg/dl (9-20) H 07/22/23 06:18
Creatinine 1.3 mg/dL (0.7-1.3) 07/22/23 06:18
Glucose 69 mg/dl (70-99) L 07/22/23 06:18
Vital Signs and I&O:
Vital Signs
Temp Pulse Resp BP Pulse Ox
97.9 F 72 18 106/50 97
07/22/23 11:10 07/22/23 11:10 07/22/23 11:10 07/22/23 11:59 07/22/23 11:10
Vital Signs
Temp Pulse Resp BP Pulse Ox
97.9 F 72 18 106/50 97
07/22/23 11:10 07/22/23 11:10 07/22/23 11:10 07/22/23 11:59 07/22/23 11:10
Intake & Output
07/20/23 07/21/23 07/22/23 07/23/23
06:59 06:59 06:59 06:59
Intake Total 700 / 700 360 / 360 0 / 0
Output Total 1100 / 1100 400 / 400 250 / 250
Balance -400 / -400 -40 / -40 -250 / -250
Physical Exam
Physical Exam
GEN: AAO x3
HEENT: MMM
LUNGS: No audible wheeze
CV: SR on tele
ABD: ND
EXT: No edema B/L LE
NEURO: Gross non-focal
SKIN: No rash.
--- NOTE | 2023-07-22 13:00 | WOUNDNOTE ---
[facility] RN note: Patient admitted with He is going to [facility] today. He is WBAT with walker and assistance. He stated his son will bring his Velcro off loading shoe to [facility].
See H&P for complete history.
PMH: R acetabular fracture, RLE arteriogram by Dr. Cramer 05/11/23, a fib (Coumadin), NIDDM, neuropathy, chronic pain, PAD with bilateral stents to iliac and femoral artery years ago, former smoker, CABG/mitral valve replacement, amp L toe, R heel
ulcer 06/2022.
Wound Location and type/assessment: Newly/almost healed diabetic along with PAD R plantar heel ulcer, small scab appearance. R great toe tip ecchymotic dark purple ulcer and R 5th toe tip small black scab r/t recent trauma (he scraped his toes on
concrete step). Toes warm. Pedal pulses heard via portable Doppler. Coccyx crease mild MASD.
Appetite: good.
Pressure redistribution devices in place: [employer] Accumax. Patient is mobile.
Plan: No sting barrier wipe applied to R heel, R great and 5th toes. Heels off bed with pillow with air chair cushion on top. Instructed patient local wound, follow up with Dr. Cramer and media sales executive or [facility]. Patient has appointment with Dr. Cramer
in August.
Updated and confirm orders with Dr. Guzman. Will sign off, call if needed.
Updated care plan and discharge instructions. Spoke with HIPOLITO Raymundo who stated PT recommends outpatient PT.
--- NOTE | 2023-07-22 13:05 | WOUNDNOTE ---
L 4TH TOE TIP
--- NOTE | 2023-07-22 13:10 | WOUNDNOTE ---
R 5TH TOE TIP
--- NOTE | 2023-07-22 13:10 | WOUNDNOTE ---
R GREAT TOE TIP
[2023-07-22 13:52] VITALS: BP 112/54; PULSE 71
[2023-07-22] MEDS: LOKELMA 10 GRAM PO (14:26)
--- NOTE | 2023-07-22 14:57 | VNURNOTE ---
Home health liaison met with patient to discuss [facility] services, visit scheduling/frequency, homebound status and pet policy. Patient understands home visits will be 1-2 times a week to assess and teach medical management. Patient aware a visiting
nurse will contact them for start of care within 1-2 days after discharge from . Brochure given with contact information. [facility] Referral completed in care port
--- NOTE | 2023-07-22 15:09 | W.PN.HOSP.TC ---
Addendum entered and electronically signed by Loren Guzman MD 07/23/23 11:18:
Right big toe and fifth toe With small black scab due to recent trauma when he scraped his toes on concrete steps
Original Note:
Today's Communication/Plan
-
Patient is feeling dizzy today. Hemoglobin drop noted
Repeat hemoglobin the morning
Low potassium diet ordered
Lokelma
Repeat labs in the morning
If stable will discharge.
Assessment / Plan
Assessment / Plan
71-year-old male admitted because of shortness of breath. He was seen in the emergency room on July 13 for shortness of breath and was treated for heart failure by increasing Lasix to 40 mg daily. Patient skipped a dose of Lasix by he got the
surgery on 07/16/2023. States he feels better after the Lasix.
On examination cardiovascular system S1-S2 appreciated, systolic murmur at apex
Chest-no rales
Abdomen soft and nontender
No pedal edema
Has hematuria. Better now
# Acute on chronic heart failure with preserved ejection fraction
Chest x-ray reviewed by me
History of cardiomyopathy with EF 15-20% by echo Jan 2020 , then EF 30% by echo 04/20/19 with h/o recovered CM EF 65% by echo 05/2022
Continue Lasix 40 mg IV twice daily
Toprol-XL 25 mg added
Elevated troponin nonischemic myocardial injury likely secondary to CHF
Echo 07/20/2023-normal LV size. Ejection fraction 53%. Mild concentric LVH. Bovine mitral valve replacement well-seated. Moderate MS. Mild to moderate MR. Mild TR. Compared to August 2022 no MR is present
weight down to 78.8 kg (from 83 kg)
# Coronary disease with CABG in 2013
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
Occluded QUIÑONES to LAD by cath 2019
Continue statin, aspirin held per Urology
# Bioprosthetic mitral valve replacement 2013
#Peripheral artery disease with history of right femoral endarterectomy and right iliac stenting 2015
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
continue statin. aspirin held per Urology
# Status post TURBT on 07/16/2023 recurrent low grade bladder cancer
Cramer catheter placed for intake output charting in the emergency room was taken out after discussion with Dr. Shields
Patient has no difficulty voiding
Hematuria-aspirin and Eliquis held per urology

# History of TIA with left carotid stenosis status post CEA March 03, 2023- statin.aspirin held per Urology
# Paroxysmal atrial fibrillation- Eliquis held per Urology
Was not on any rate controlling agents as outpatient
Beta-heath started now
# Hypertension-history of chronic hypotension therefore not on any medicines as outpatient
Beta-blockers added-watch blood pressure
# COPD-Stable.
# Chronic hypotension on midodrine
# Diabetes with diabetic neuropathy
Continue metformin thousand twice daily, glipizide 2.5 mg daily, sliding cell coverage
Continue gabapentin
# Hyperlipidemia-continue statin
# Pulmonary hypertension
# History of prostate cancer with prostatectomy in 2008
# Medical marijuana use
# Chronic left foot drop
# Chronic pain opiate dependent. Also on gabapentin .
# Insomnia - Ambien as outpatient
# Qz-bbweaq-pojj in 2007
# DVT prophylaxis-Eliquis held per Urology. SCds
# Full code
D/W RN
Anticipated Discharge: Within 24 hours
Subjective/Interval History
-
Date of Service: July 22, 2023
Objective Data
-
Labs:
Laboratory Results
07/22/23
06:18
Hgb 10.4 L
Hct 31.2 L
Sodium 135
Potassium 5.3 H
Chloride 96 L
Carbon Dioxide 33 H
BUN 33 H
Creatinine 1.3
Glucose 69 L
Calcium 9.0
Vital Signs:
Vital Signs
Temp Pulse Resp BP Pulse Ox
97.9 F 72 18 106/50 97
07/22/23 11:10 07/22/23 11:10 07/22/23 11:10 07/22/23 11:59 07/22/23 11:10
I&O
07/21/23 07/22/23 07/23/23
06:59 06:59 06:59
Intake Total 360 / 360 0 / 0
Output Total 400 / 400 250 / 250
Balance -40 / -40 -250 / -250
[2023-07-22 15:17] VITALS: BP 116/50
--- NOTE | 2023-07-22 15:55 | CM ---
PT recommended VN .
Wound care nurse recommended VN for wounds on feet.He has a offloading boot he will bring into hospital.
Pt requested [facility] . [facility] Liaison notified of referral .
[facility] [place] [facility] [place] [facility]
PLAN Home with [facility] if accepted .
[2023-07-22] MEDS: LIPITOR 80 MG PO (16:11)
[2023-07-22] MEDS: GLUCOTROL XL (EXTENDED RELEASE) 2.5 MG PO (16:12)
[2023-07-22 19:47] VITALS: BP 111/63
[2023-07-22 23:15] VITALS: BP 116/62
[2023-07-23 03:54] VITALS: BP 100/49
[2023-07-23 04:21] VITALS: BMI 22.3
[2023-07-23] MEDS: ROXICODONE 10 MG PO (04:24)
[2023-07-23 05:24] LABS: Hemoglobin 10.8 g/dL (13.0-18.0); Mean Corp Hgb Conc. 32.7 g/dL (33.0-37.0); Mean Corpuscular Hgb 27.2 pg (27.0-31.0); Mean Corpuscular Volume 83.1 fL (80.0-94.0); Mean Platelet Volume 11.2 fL (7.4-10.4); Platelet Count 225 10^3/uL (130-400); Red Blood Cell Count 3.97 10^6/uL (4.70-6.10); Red Cell Dist. Width 14.8 % (11.5-14.5); White Blood Cell Count 9.6 10^3/uL (4.8-10.8)
[2023-07-23 05:57] LABS: Blood Urea Nitrogen 31 mg/dl (9-20); Calcium 9.1 mg/dl (8.4-10.2); Carbon Dioxide 33 mmol/L (22-30); Chloride 95 mmol/L (98-107); Estimated Creatinine Clearance 57 ml/min; Glucose 82 mg/dl (70-99); Potassium 4.9 mmol/L (3.5-5.1); Sodium 136 mmol/L (135-145); eGFR 58.37
[2023-07-23 07:50] VITALS: BP 115/59
[2023-07-23] MEDS: TOPROL XL 12.5 MG PO (08:18)
[2023-07-23] MEDS: NEURONTIN 600 MG PO (08:19)
[2023-07-23] MEDS: SENOKOT 17.1999999999999993 MG PO (08:19)
[2023-07-23] MEDS: LASIX 40 MG PO (08:19)
[2023-07-23] MEDS: MS CONTIN (EXTENDED RELEASE) 15 MG PO (08:19)
[2023-07-23] MEDS: COLACE 100 MG PO (08:19)
[2023-07-23] MEDS: GLUCOPHAGE 1000 MG PO (08:20)
[2023-07-23] MEDS: MIRALAX 17 GRAMS PO (08:23)
--- NOTE | 2023-07-23 08:54 | PN.CDI ---
CDI
- -
CDI:
Physician Documentation Request
Admit Date: 07/18/23 04:44
Dear Doctor Thomas,
Please review the following and provide your response in the progress notes.
Clinical Indicators:
Pt admitted with Acute on Chronic Diastolic CHF on IV diuresis Lasix
Renal functions are as below
07/18/23 07/20/23 07/21/23
02:36 05:31 09:51
Creatinine 1.0 1.0 1.1
07/22/23 07/23/23
06:18 05:00
Creatinine 1.3 1.3
Clarify which of the following accurately represents the patient's renal status:
SOWMYA
Abnormal lab value only
Other
Criteria for SOWMYA*
1 Increase in serum creatinine by > or = to 0.3 mg/dL (> or = to 26.5 micromol/L) within 48 hours, OR
2 Increase in serum creatinine to > or = to 1.5 times baseline, which is known or presumed to have occurred within 7 days, OR
3 Urine volume < 0.5 nL/kg/hour for six hours
Use of terms such as suspected, likely, concern for, or probable (associated with a specific diagnosis that is being evaluated, monitored, or treated as if it exists) are acceptable and can be coded in the inpatient setting, when documented at the
time of discharge.
Thank you,
Marisol Fuller RN
CDI Specialist
[facility]
Please use your independent medical judgment in providing your response.
*Source: Kidney Disease: Improving Global Outcomes (KDIGO) 2012
--- NOTE | 2023-07-23 10:59 | W.PN.CARDCBS ---
Addendum entered and electronically signed by Radha Louis DO 07/23/23 13:06:
I saw and examined the patient.
The Centralized Traffic Control Operator's note was reviewed and I agree with the note.
Comment: Patient seen and examined. He does have slight lightheadedness upon getting up to use the restroom but otherwise feeling okay and anxious to return home. No shortness of breath or chest pain. No edema. No hematuria or clots. No urinary
retention.
GEN: AAO x3
HEENT: MMM
LUNGS: Bronchovesicular breath sounds, clear
CV: Regular, positive S1-S2. / SM
ABD: ND, positive bowel sound
EXT: No edema B/L LE
Plan:
Acute on chronic heart failure with preserved ejection fraction with history of reduced cardiomyopathy in 2019 with recovered EF
-Continue current medical therapy
-Weight is down 9 lbs in total with Lasix IV diuresis. Patient now transitioned to Lasix 40 mg PO BID 07/21/23. Patient was taking Lasix 40 mg PO daily prior to admission.
-CM regimen includes Toprol XL 12.5 mg daily added this admission. Coreg and lisinopril previously stopped due to hypotension.
-Echo this admission with well-seated tiss MVR and peak/mean 20/10 mmHg and mod MS and mild to mod MR. LV ejection fraction 53%. Last echo 08/2022 mean gradient was 6. Will follow by echo as an outpatient
-Patient with h/o PAD and pAfib. Prior to admission patient was taking aspirin 81 mg daily and Eliquis.
History of orthostatic hypotension
-Patient hypotensive, but not orthostatic by VS 07/22/23.
- Has a h/o orthostasis and has midodrine 5 mg TID PRN at home that he uses for SBP less than 110. Will refill if needed at home.
Chronic anemia with hematuria that resolved this admission
-No further hematuria or clots and seen by urology this admission
-Hgb on 07/21/23 was 11.3, then 07/22/23 was 10.4 and then 07/23/23 improved a bit to 10.8. Patient reports that starting 07/22/23 PM his hematuria resolved and that his urine is now clear.
-Will restart Eliquis 5 mg BID 07/23/23 PM. Patient will watch for recurrence of hematuria.
-Last peripheral intervention was left CEA 02/2023 and prior to that right SFA and popliteal HOSIERY MATER and stent in 2019.
-Aspirin can be stopped and Eliquis alone should be continued.
History of paroxysmal atrial fibrillation, sinus rhythm on telemetry
-Resume Eliquis anticoagulation and monitor for rebleeding
-Patient with h/o paroxysmal Afib. SR on tele.
Known coronary artery disease status post CABG in 2013. Has a history of unsuccessful attempted PCI of the TCO of the LAD in 2015. History of occluded QUIÑONES to LAD by cath in 2019
-Mildly elevated cardiac troponin secondary to nonischemic troponin elevation. Patient has no chest pain.
-Continue medical therapy
Stable from a cardiovascular standpoint for discharge. Will arrange outpatient cardiac follow-up
Original Note:
Today's Communication / Plan
-
Cont Eliquis
Stop aspirin
Refilling midodrine PRN
Impression / Plan
-
PCP: Dr. Sivakumar Patel
Primary Public Affairs Director: Dr. Garcia
Impression:
-Presented with SOB 07/18/23
-Recent ER visit for CHF 07/14/23
-Acute hypoxemic respiratory failure, requiring BiPAP
-Acute on chronic HFpEF, proBNP 1220
-Elevated troponin, peaked 0.227
-concern for bladder cancer s/p TURBT, pathology pending 07/16/23
-Hematuria and anemia
-CM EF 15-20% by echo Jan 2020 with EF 30% by echo 04/20/19 with h/o recovered CM EF 65% by echo 05/2022, EF 53% by echo 07/20/23
-CAD
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
CABG with occluded QUIÑONES to LAD by cath 2019, but patent SVG seq to Diag-OM-PDA 02/2014
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
-PAD s/p right femoral endarterectomy and right iliac stenting 02/2016
-PAD s/p right SFA and popliteal HOSIERY MATER and stent 10/24/19
-possible TIA with noted L carotid stenosis s/p L CEA 03/03/23
-Paroxysmal Afib
-Chronic Eliquis OAC
-HTN
-Moderate to severe chronic obstructive pulmonary disease
-DM2 with Diabetic neuropathy
-Pulmonary HTN
-Hx prostate cancer s/p surgery 2007
-Medical marijuana use
-former smoker
CATH 2020: Left main and three-vessel [place] coronary total occlusions, patent sequential SVG to diagonal/OM/PDA with collaterals to LAD, and occluded QUIÑONES to LAD, anterolateral wall hypokinesis with mild LV dysfunction
Echo 08/2022: Mild LVH, mid to apical anterior and anteroseptal hypokinesis, EF 50%, bioprosthetic mitral valve with peak/mean gradients 10/6 mmHg, GASTON 1.5 cm�, trace MR, dilated left atrium, aortic sclerosis, normal right heart cardiac
Echo 07/20/2023: EF 53%, mild concentric LVH. Bovine mitral valve replacement well-seated peak/mean gradient 20/10 mmHg with MV area 1.4 cm�, moderate MS with mild to moderate MR. Mild TR with PAP 35 mmHg
Plan:
-Patient hypotensive, but not orthostatic by VS 07/22/23. Also noted to be anemic as below. Has a h/o orthostasis and has midodrine 5 mg TID PRN at home that he uses for SBP less than 110. Will refill if needed at home.
-Hgb on 07/21/23 was 11.3, then 07/22/23 was 10.4 and then 07/23/23 improved a bit to 10.8. Patient reports that starting 07/22/23 PM his hematuria resolved and that his urine is now clear.
-Will restart Eliquis 5 mg BID 07/23/23 PM. Patient will watch for recurrence of hematuria.
-Patient with h/o PAD and pAfib. Prior to admission patient was taking aspirin 81 mg daily and Eliquis. Last peripheral intervention was left CEA 02/2023 and prior to that right SFA and popliteal HOSIERY MATER and stent in 2019. Aspirin can be stopped and
Eliquis alone should be continued.
-Weight is down 9 lbs in total with Lasix IV diuresis. Patient now transitioned to Lasix 40 mg PO BID 07/21/23. Patient was taking Lasix 40 mg PO daily prior to admission.
-EF previously as low as 15-20% by echo in 01/2020, but has since improved and was stable at 53% by echo this admission
-CM regimen includes Toprol XL 12.5 mg daily added this admission. Coreg and lisinopril previously stopped due to hypotension.
-Patient with h/o paroxysmal Afib. SR on tele.
-Echo this admission with well-seated tiss MVR and peak/mean 20/10 mmHg and mod MS and mild to mod MR. Last echo 08/2022 mean gradient was 6. Will follow by echo as an outpatient
-Troponin peaked at 0.227. ECG without ischemic change. No new WMA on echo. Will manage as a nonischemic myocardial injury Troponin elevation in the setting of acute HF.
-Cardiology follow up arranged
Progress Note - Public Affairs Director
Subjective
Date of Service: July 23, 2023
Urine clear since last night
Objective
Labs:
07/23/23 05:00
07/23/23 05:00
Labs
Hgb 10.8 g/dL (13.0-18.0) L 07/23/23 05:00
Hct 33.0 % (39.0-52.0) L 07/23/23 05:00
Plt Count 225 10^3/uL (130-400) 07/23/23 05:00
Sodium 136 mmol/L (135-145) 07/23/23 05:00
Potassium 4.9 mmol/L (3.5-5.1) 07/23/23 05:00
BUN 31 mg/dl (9-20) H 07/23/23 05:00
Creatinine 1.3 mg/dL (0.7-1.3) 07/23/23 05:00
Glucose 82 mg/dl (70-99) 07/23/23 05:00
Vital Signs and I&O:
Vital Signs
Temp Pulse Resp BP Pulse Ox
98.1 F 79 18 115/59 100
07/23/23 07:50 07/23/23 08:18 07/23/23 07:50 07/23/23 08:18 07/23/23 07:50
Vital Signs
Temp Pulse Resp BP Pulse Ox
98.1 F 79 18 115/59 100
07/23/23 07:50 07/23/23 08:18 07/23/23 07:50 07/23/23 08:18 07/23/23 07:50
Intake & Output
07/21/23 07/22/23 07/23/23 07/24/23
06:59 06:59 06:59 06:59
Intake Total 360 / 360 0 / 0 840 / 840
Output Total 400 / 400 250 / 250
Balance -40 / -40 -250 / -250 840 / 840
Physical Exam
Physical Exam
GEN: AAO x3
HEENT: MMM
LUNGS: No audible wheeze
CV: SR on tele
ABD: ND
EXT: No edema B/L LE
NEURO: Gross non-focal
SKIN: No rash.
--- NOTE | 2023-07-23 11:01 | CM ---
Patient seen bedside, reports no needs to CM at this time. IMM reviewed, signed, placed in chart. [facility] updated on patient discharge status. CM will continue to follow for discharge planning needs.
Plan; home with [facility] when stable.
[2023-07-23 11:52] VITALS: BP 103/52
--- NOTE | 2023-07-23 12:49 | W.PN.HOSP.TC ---
Addendum entered and electronically signed by Loren Guzman MD 07/23/23 14:11:
Aspirin Stopped by Cardiology
Addendum entered and electronically signed by Loren Guzman MD 07/23/23 14:06:
Dictation- [id number]
Original Note:
Today's Communication/Plan
-
Discharge
Cards to let me know final decision re ASA
Assessment / Plan
Assessment / Plan
71-year-old male admitted because of shortness of breath. He was seen in the emergency room on July 13 for shortness of breath and was treated for heart failure by increasing Lasix to 40 mg daily. Patient skipped a dose of Lasix by he got the
surgery on 07/16/2023. States he feels better after the Lasix.
On examination cardiovascular system S1-S2 appreciated, systolic murmur at apex
Chest-no rales
Abdomen soft and nontender
No pedal edema
Hematuria resolved
# Acute on chronic heart failure with preserved ejection fraction
Chest x-ray reviewed by me
History of cardiomyopathy with EF 15-20% by echo Jan 2020 , then EF 30% by echo 04/20/19 with h/o recovered CM EF 65% by echo 05/2022
Continue Lasix 40 mg IV twice daily
Toprol-XL 25 mg added
Elevated troponin nonischemic myocardial injury likely secondary to CHF
Echo 07/20/2023-normal LV size. Ejection fraction 53%. Mild concentric LVH. Bovine mitral valve replacement well-seated. Moderate MS. Mild to moderate MR. Mild TR. Compared to August 2022 no MR is present
weight down to 78.8 kg (from 83 kg)
# Coronary disease with CABG in 2013
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
Occluded QUIÑONES to LAD by cath 2019
Continue statin,
# Bioprosthetic mitral valve replacement 2013
#Peripheral artery disease with history of right femoral endarterectomy and right iliac stenting 2015
Right SFA and popliteal [employer] UP [employer] and stenting in 2019
continue statin.
# Status post TURBT on 07/16/2023 recurrent low grade bladder cancer
Cramer catheter placed for intake output charting in the emergency room was taken out after discussion with Dr. Shields
Patient has no difficulty voiding
Hematuria has resolved

# History of TIA with left carotid stenosis status post CEA March 03, 2023- statin.aspirin held per Cardiology
# Paroxysmal atrial fibrillation- Restrat Eliquis with no bleeding
Was not on any rate controlling agents as outpatient
Beta-heath started now
# Hypertension-history of chronic hypotension therefore not on any medicines as outpatient
Beta-blockers added
# COPD-Stable.
# Chronic hypotension on midodrine chronic dizziness. Patient uses midodrine as needed at home if he feels dizzy. He states that he is well versed in how to manage as he sits down stands up slowly
# Diabetes with diabetic neuropathy
Continue metformin thousand twice daily, glipizide 2.5 mg daily, sliding cell coverage
Continue gabapentin
# Hyperlipidemia-continue statin
# Pulmonary hypertension
# History of prostate cancer with prostatectomy in 2008
# Medical marijuana use
# Chronic left foot drop
# Chronic pain opiate dependent. Also on gabapentin .
# Insomnia - Ambien as outpatient
# Gs-wolndp-wkmx in 2007
# DVT prophylaxis-Restrat Eliquis with no bleeding
# Full code
D/W RN
D/W Cards at bed side
Aspirin has been stopped by cardiology. Cardiology is double checking to see if he needs to continue with aspirin or just Eliquis alone.
Discharge time 37 min
Anticipated Discharge: Today
Subjective/Interval History
-
Date of Service: July 23, 2023
Objective Data
-
Labs:
Laboratory Results
07/23/23
05:00
WBC 9.6
Hgb 10.8 L
Hct 33.0 L
Plt Count 225
Sodium 136
Potassium 4.9
Chloride 95 L
Carbon Dioxide 33 H
BUN 31 H
Creatinine 1.3
Glucose 82
Calcium 9.1
Vital Signs:
Vital Signs
Temp Pulse Resp BP Pulse Ox
98.1 F 72 18 103/52 95
07/23/23 11:52 07/23/23 11:52 07/23/23 11:52 07/23/23 11:52 07/23/23 11:52
I&O
07/22/23 07/23/23 07/24/23
06:59 06:59 06:59
Intake Total 0 / 0 840 / 840
Output Total 250 / 250
Balance -250 / -250 840 / 840
--- NOTE | 2023-07-23 14:11 | W.DS.TRANS ---
DC Summary - [employer]
-
Discharge Instructions:
Sleep Apnea Risk Intermediate
Discharge Diagnosis/Procedures CHF, hematuria, coronary artery disease,
bioprosthetic mitral valve replacement,
peripheral artery disease, history of TURBT,
elevated bladder cancer, history of TIA, atrial
fibrillation, hypertension, COPD, chronic
hypotension, diabetes with diabetic neuropathy,
hyperlipidemia, history of prostate cancer,
chronic left foot drop, insomnia
Diet 2 Gram Sodium
Activity As tolerated
Driving Restrictions As prior to admission
Blood Work bmp 4 days, cbc 4 days
Other Services VN
Specialty Instructions Weigh Daily
Instructions: *DCA Heart Failure Instructions
Stand-Alone Forms:
Changes to Home Medications: Yes
Discharge Medications:
DC Medications w/original date entered in [employer]
atorvastatin 80 mg tablet 80 mg PO QPM High cholesterol 01/19/20
gabapentin 600 mg tablet 600 mg PO TID Pain 12/19/22
zolpidem 5 mg tablet 5 mg PO HSPRN PRN sleep 12/19/22
acetaminophen 325 mg tablet 650 mg (2 x 325 mg) PO Q4HPRN PRN mild pain/BRAVO/temp> 100.4F #100 tabs 12/22/22
oxycodone 10 mg tablet 10 mg PO Q6H PRN Pain 02/26/23
glipizide 2.5 mg tablet, extended release 24 hr 2.5 mg PO QPM Diabetes #0 tabs 02/27/23
metformin 1,000 mg tablet 1,000 mg PO BID Diabetes #0 tabs 02/27/23
lactulose 10 gram/15 mL oral solution 30 ml PO DAILY PRN constipation 07/14/23
morphine 15 mg tablet,extended release 30 mg PO Q8 Pain 07/18/23
apixaban 5 mg tablet (Eliquis) 5 mg PO BID Blood clot prevention/tx #60 tabs 07/23/23
docusate sodium 100 mg capsule 100 mg PO BID Constipation #0 caps 07/23/23
furosemide 40 mg tablet 40 mg PO BID AT 0800,1600 Fluid retention/Swelling #60 tabs 07/23/23
metoprolol succinate 25 mg tablet,extended release 24 hr 12.5 mg (1/2 x 25 mg) PO DAILY Heart disease/condition #30 tabs 07/23/23
midodrine 5 mg tablet 5 mg PO TIDPRN PRN dizziness #10 tabs 07/23/23
polyethylene glycol 3350 17 gram oral powder packet (HealthyLax) 17 g PO DAILY constipation #0 ea 07/23/23
sennosides 8.6 mg tablet (Senna Laxative) 17.2 mg (2 x 8.6 mg) PO BID when you take opiates #0 tabs 07/23/23
Home Medication Changes
ASA stopped
Lasix increased
new
metoprolol succinate 25 mg tablet,extended release 24 hr 12.5 mg (1/2 x 25 mg) PO DAILY Heart disease/condition #30 tabs 07/23/23
Pending Results: Yes
--- NOTE | 2023-08-04 10:09 | W.PN.UPDATE ---
Update Note
Progress Note Update
creat change does qualify for a diagnosis of SOWMYA by definition
== END 2023-07-23 15:00 | disposition home health service (06) | DRG 291 ==
LOC: 4 EAST ACU 04:44
PROVIDERS: Internal Medicine Cardiovascular Disease; ADMITTING PHYSICIAN Hospitalist; ATTENDING PHYSICIAN Hospitalist; CONSULT PHYSICIAN Internal Medicine Cardiovascular Disease; CONSULT PHYSICIAN Specialist; EMERGENCY PHYSICIAN Emergency Medicine; FAMILY PHYSICIAN Family Medicine
DX: I11.0 Hypertensive heart disease with heart failure (principal); I50.33 Acute on chronic diastolic (congestive) heart failure; J96.01 Acute respiratory failure with hypoxia; F11.20 Opioid dependence, uncomplicated; D68.32 Hemorrhagic disorder due to extrinsic circulating anticoagulants; N17.9 Acute kidney failure, unspecified; I25.810 Atherosclerosis of coronary artery bypass graft(s) without angina pectoris; I48.0 Paroxysmal atrial fibrillation; I25.10 Atherosclerotic heart disease of native coronary artery without angina pectoris; I25.5 Ischemic cardiomyopathy; R31.0 Gross hematuria; I5A Non-ischemic myocardial injury (non-traumatic); J44.9 Chronic obstructive pulmonary disease, unspecified; E11.40 Type 2 diabetes mellitus with diabetic neuropathy, unspecified; E78.00 Pure hypercholesterolemia, unspecified; I27.20 Pulmonary hypertension, unspecified; Z95.3 Presence of xenogenic heart valve; Z86.73 Personal history of transient ischemic attack (TIA), and cerebral infarction without residual deficits; Z85.46 Personal history of malignant neoplasm of prostate; E11.51 Type 2 diabetes mellitus with diabetic peripheral angiopathy without gangrene; G47.00 Insomnia, unspecified; G89.4 Chronic pain syndrome; I25.82 Chronic total occlusion of coronary artery; I42.8 Other cardiomyopathies; I95.89 Other hypotension; Z79.01 Long term (current) use of anticoagulants; Z79.82 Long term (current) use of aspirin; Z79.84 Long term (current) use of oral hypoglycemic drugs; Z79.899 Other long term (current) drug therapy; Z87.891 Personal history of nicotine dependence
CPT/HCPCS: 51702; 71045; 80048; 80053; 80069; 82962; 83735; 83880; 84484; 85014; 85018; 85025; 85027; 87502; 87811; 93005; 93306; 94660; 96365; 96375; 97116; 97163; 97166; 97530; 99291

== ENCOUNTER → 2023-07-27 18:00 | Outpatient (REF) | payer MEDICARE, OTHER, SELFPAY ==
[2023-07-27 19:15] LABS: Blood Urea Nitrogen 20 mg/dl (9-20); Calcium 9.3 mg/dl (8.4-10.2); Carbon Dioxide 30 mmol/L (22-30); Chloride 97 mmol/L (98-107); Glucose 165 mg/dl (70-99); Potassium 4.9 mmol/L (3.5-5.1); Sodium 138 mmol/L (135-145); eGFR > 60.00
[2023-07-27 19:18] LABS: % Basophils 0.8 % (0-2); % Eosinophils 2.7 % (0-6); % Immature Granulocytes 0.4 % (0-0.5); % Lymphocytes 18.6 % (20.5-51.1); % Monocytes 8.7 % (1.7-9.3); % Neutrophils 68.8 % (42.2-75.2); Absolute Basophils 0.1 10^3/uL (0-0.2); Absolute Eosinophils 0.3 10^3/uL (0-0.7); Absolute Lymphocytes 1.7 10^3/uL (1.2-3.4); Absolute Monocytes 0.8 10^3/uL (0.1-0.6); Absolute Neutrophils 6.3 10^3/uL (1.4-6.5); Hematocrit 34.8 % (39.0-52.0); Hemoglobin 11.1 g/dL (13.0-18.0); Mean Corp Hgb Conc. 31.9 g/dL (33.0-37.0); Mean Corpuscular Hgb 27.3 pg (27.0-31.0); Mean Corpuscular Volume 85.5 fL (80.0-94.0); Mean Platelet Volume 12.9 fL (7.4-10.4); Nucleated Red Blood Cells % 0 % (-); Platelet Count 224 10^3/uL (130-400); Red Blood Cell Count 4.07 10^6/uL (4.70-6.10); Red Cell Dist. Width 14.9 % (11.5-14.5); White Blood Cell Count 9.2 10^3/uL (4.8-10.8)
== END ==
LOC: CLAB 18:00
PROVIDERS: ATTENDING PHYSICIAN Family Medicine
DX: I11.0 Hypertensive heart disease with heart failure (principal)
CPT/HCPCS: 36415; 80048; 85025

== ENCOUNTER → 2023-08-21 16:53 | Outpatient (REF) | payer MEDICARE, OTHER, SELFPAY ==
[2023-08-21 18:40] LABS: Blood Urea Nitrogen 21 mg/dl (9-20); Calcium 9.2 mg/dl (8.4-10.2); Carbon Dioxide 28 mmol/L (22-30); Chloride 99 mmol/L (98-107); Glucose 105 mg/dl (70-99); Phosphorus 4.5 mg/dl (2.5-4.5); Potassium 4.5 mmol/L (3.5-5.1); Sodium 138 mmol/L (135-145); eGFR > 60.00
[2023-08-21 18:51] LABS: NT-proBNP 795 pg/ml
== END ==
LOC: CLAB 16:53
PROVIDERS: ATTENDING PHYSICIAN Internal Medicine Cardiovascular Disease; FAMILY PHYSICIAN Family Medicine; REFERRING PHYSICIAN Nuclear Medicine Nuclear Cardiology
DX: I11.0 Hypertensive heart disease with heart failure (principal); I50.33 Acute on chronic diastolic (congestive) heart failure
CPT/HCPCS: 80069; 83880

== ENCOUNTER 2023-10-12 17:08 | Inpatient (IN) | payer MEDICARE, OTHER, SELFPAY ==
[2023-10-12] VITALS (10 sets, daily range): BP systolic 130–166; BP diastolic 60–94; BMI 21.3; BMI 21.5
--- NOTE | 2023-10-12 13:43 | ED.GENMED ---
History of Present Illness
General
Chief Complaint: Breathing Problem
Source: patient
Exam Limitations: none
Time Seen by Provider: 10/12/23 13:20
Nursing documentation reviewed up to this point in time: agreed with
History of Present Illness
History of Present Illness:
73-year-old male with a past medical history of CAD, CHF, atrial fibrillation, PVD, diabetes, neuropathy who presents to the emergency department for evaluation of shortness of breath x 24 hours and abdominal pain which started today. Patient
reports onset of his shortness of breath yesterday and symptoms were consistent all day yesterday and have been consistent all day today. They seem to be somewhat worse with exertion but he says that symptoms are consistent even at rest. He
reports mild associated cough with productive of clear sputum last night. Denies any chest pain. Denies any fevers or chills. He says he has similar symptoms in the past related to CHF; has not noticed any increased edema or weight gain. He is
on Lasix 40 mg daily and has been compliant he says. He sees Dr. Garcia for cardiology. He is also complaining of abdominal pain. He says the symptoms started this morning and are located in the right lower quadrant. He says symptoms seem to be
worse with movement, no relieving factors noted. He has associated nausea and a few episodes of vomiting today. He denies any diarrhea or constipation. He denies any dysuria, hematuria, change in frequency. He denies any similar symptoms in the
past.
Past History
Past History
ED Past Medical History: Arrthythmia (Atrial fib), CAD, Cancer (Prostate, Bladder), CHF, HTN, Hypercholesterolemia, NIDDM and Other (Diabetic neuropathy, Left foot drop, Frequent Syncope, Pericarditis, PVD, Numbness and tingling)
ED Past Surgical History: Cardiac (CABG with Mitral valve replaced), Orthopedic (Left Shoulder surgery), Urological (Prostatectomy) and Other (Amputation left great toe, Bypass left groin, Left fempop bypass. Left leg stent, )
Social History
Tobacco: Former smoker
Alcohol: None
Drug: None
Personal:
Living: with family
Employment: Employed
Family History
Family History: Hypertension
Review of Systems
Review of Systems
All Other Systems: ROS reviewed and negative except as documented in HPI and ROS
Constitutional: Denies fever, weight gain or chills
EENT: Denies sore throat or runny nose
Respiratory: Reports cough and trouble breathing
Cardiac: Denies chest pain or palpitations
ABD/GI: Reports abdominal pain, nausea and vomiting; Denies diarrhea or constipated
: Denies dysuria, frequency, flank pain or bleeding
Musculoskeletal: Denies edema, neck pain or back pain
Neurological: Denies dizzy or headache
Phy Exam
Physical Exam
Physical Exam:
General: Awake, alert, oriented x3; no acute distress
Head: Normocephalic, atraumatic
Eyes: Conjunctiva normal, EOMI
Throat: Airway intact, handling secretions
Neck: Trachea midline, supple without meningismus, no JVD
Lungs: Breath sounds diminished at the lung bases bilaterally but no focal wheezing or rales appreciated
Heart: Regular rate and rhythm, faint systolic murmur left lower sternal border
Abd: Soft, non distended, tender to palpation right lower quadrant
Neuro: Cranial nerves grossly intact, speech fluid
Skin: no rash
Extremities: No edema in extremities, equal pulses in all extremities
Scores
Heart Failure Risk
Heart Failure Risk Score: Not Applicable
Heart Score for Chest Pain Patients
STEMI patient?: Not applicable
Withdrawal Assessment of Alcohol
Withdrawal Assessment Completed?: Not applicable
Course
Orders/Labs/Results
Orders:
Orders
10/12/23 13:21
Electrocardiogram (*1) Urgent
Reason for Study: Shortness of Breath
EKG- Treatment ONCE
CR Chest Portable - 1 View Urgent
Comment:
Reason For Exam: sob
Reason Study Needs to be Portable: Unable to Transport
10/12/23 13:26
Complete Blood Count/With Diff Urgent
Comprehensive Metabolic Panel Urgent
Lipase Urgent
NT-proBNP Urgent
10/12/23 13:42
CT Abd/pelvis W Iv Cont Urgent
Comment:
Reason For Exam: RLQ abd pain, N/V
10/12/23 14:53
Urinalysis Reflex To Culture Urgent
Date Specimen was Collected: 10/12/23
Time Specimen was Collected: 14:01
10/12/23 15:19
STOOL [C difficile Antigen & Toxins] Urgent
NOHEMY Source: Feces/Stool
Specimen Description:
Stool Culture Urgent
NOHEMY Source: Feces/Stool
Specimen Description:
CefTRIAXone [Rocephin] 1,000 mg IV NOW STA
MetroNIDAZOLE 500 MG/100 ML [Flagyl 500 mg] 100 ml IV NOW
10/12/23 15:20
Furosemide [Lasix] 40 mg IV NOW STA
Abnormal Lab Results
10/12/23
13:26
WBC 18.5 H 10^3/uL
(4.8-10.8)
RBC 4.47 L 10^6/uL
(4.70-6.10)
Hgb 12.4 L g/dL
(13.0-18.0)
Hct 37.2 L %
(39.0-52.0)
RDW 14.8 H %
(11.5-14.5)
MPV 10.6 H fL
(7.4-10.4)
Abs Immat Gran (auto) 0.2 H 10^3/uL
(0-0.05)
Absolute Neuts (auto) 15.7 H 10^3/uL
(1.4-6.5)
Absolute Lymphs (auto) 0.9 L 10^3/uL
(1.2-3.4)
Absolute Monos (auto) 1.6 H 10^3/uL
(0.1-0.6)
Immature Gran % 1.0 H %
(0-0.5)
Neutrophils % 85.1 H %
(42.2-75.2)
Lymphocytes % 5.0 L %
(20.5-51.1)
Glucose 131 H mg/dl
(70-99)
10/12/23 13:26
10/12/23 13:26
Vital Signs
Initial and Last Documented VS:
Initial Vital Signs
BP
130/65
10/12/23 12:08
Last Documented Vital Signs
Temp Pulse Resp BP Pulse Ox
36.4 C 83 18 130/60 94
10/12/23 12:10 10/12/23 14:00 10/12/23 14:00 10/12/23 13:00 10/12/23 13:45
MDM/Problems Addressed
Differential Diagnosis Includes:
Shortness of breath: CHF, pneumonia, symptomatic atrial fibrillation, anemia
Abdominal pain: Appendicitis, diverticulitis, nephrolithiasis, UTI
MDM/Problems Addressed:
73-year-old male presents for evaluation of shortness of breath x 24 hours and abdominal pain x 8 hours. Vital signs normal. Exam as above. Plan to place IV send labs including a CBC and a CMP, lipase. Check proBNP. Will check urinalysis. Will
check a chest x-ray. Will send for a CT of the abdomen pelvis. Will treat symptomatically. Monitor closely reassess after the above.
Labs reviewed: CBC shows leukocytosis to 18.5. CMP no clinically significant abnormalities. proBNP was elevated at 3500; urinalysis negative for infection. Chest x-ray shows no overt edema but CT abdomen pelvis he does have pleural effusions the
lung bases suspect likely mild CHF accounts for his shortness of breath. Regarding his abdominal pain CT abdomen pelvis showed right-sided colitis. Given multiple SIRS criteria (leukocytosis, heart rate greater than 90) and infection: Will cover
with antibiotics and admit for observation. Will send blood culture. Also given extra dose of IV Lasix for mild CHF. Case discussed with hospitalist.
Chronic conditions affecting care:
CHF, atrial fibrillation, CAD
*Radiology
Radiology exam reviewed: preliminary read by ED provider and radiology read reviewed
*Pulse Oximetry
Patient hypoxic: no
*EKG
Interpreted by ED Provider?: Yes
Heart Rate: 84
Rate: normal
Rhythm: sinus
[place]: normal axis
Interval: normal interval
QRS Pattern: normal QRS
Ischemia: non-specific ST changes
*Critical Care Note
Total Time (30-74mins, 75-104mins- exclusive of procedures): Not Applicable
Data Reviewed
Review of Other/Old Records Reveals: Labs and Records
Source: patient and records
ED Attending Note
-
Portions of this chart may have been created with voice recognition software.� Occasional wrong word or��sound alike� substitutions may have occurred due to the inherent limitations of voice recognition software.
Discharge Plan
Departure
Patient Disposition: Admit
Date of Disposition: 10/12/23
Time of Disposition: 15:21
Admit to doctor: Do
Presentation/result/management discussed w/ accepting MD/DO: Hospitalist
Discharge Problem:
Colitis, CHF exacerbation
Prescriptions:
No Action
atorvastatin 80 MG tablet
80 mg PO QPM
gabapentin 600 mg Tablet
600 mg PO TID
zolpidem 5 mg Tablet
5 mg PO HSPRN PRN (Reason: sleep)
acetaminophen 325 mg Tablet
650 mg PO Q4HPRN PRN (Reason: mild pain/BRAVO/temp> 100.4F) Qty: 100 0RF
oxycodone 10 mg tablet
10 mg PO Q6H PRN (Reason: Pain)
Patient Comments:
07/14/2023: last filled 06/18/23, 120 tabs for 30 days from [facility]
glipizide 2.5 MG tablet extended release 24hr
2.5 mg PO QPM Qty: 0 0RF
metformin 1,000 MG tablet
1,000 mg PO BID Qty: 0 0RF
lactulose 10 gram/15 mL solution
30 ml PO DAILY PRN (Reason: constipation)
morphine 15 mg tablet extended release
30 mg PO Q8
furosemide 40 mg Tablet
40 mg PO BID AT 0800,1600 Qty: 60 0RF
sennosides [Senna Laxative] 8.6 mg Tablet
17.2 mg PO BID Qty: 0 0RF
docusate sodium 100 mg Capsule
100 mg PO BID Qty: 0 0RF
metoprolol succinate 25 mg Tablet Extended Release 24 Hr
12.5 mg PO DAILY Qty: 30 0RF
polyethylene glycol 3350 [HealthyLax] 17 gram powder in packet
17 g PO DAILY Qty: 0 0RF
Eliquis 5 mg tablet
5 mg PO BID Qty: 60 1RF
midodrine 5 mg Tablet
5 mg PO TIDPRN PRN (Reason: dizziness) Qty: 10 0RF
Referrals:
Yuli Vasquez CRNP [Non-Admitting Privileges] -
Interventions
Interventions:
*Risk Screen - Suicide Last Done: 10/12/23 12:10
*General Assessment Last Done: 10/12/23 12:10
*Neglect/Abuse Screening Last Done: 10/12/23 12:10
ED- Cardiac Assessment Last Done: 10/12/23 14:02
ED- Pulmonary Assessment Last Done: 10/12/23 14:02
Discharge Date and Time
Print Language: UGANDAN
[2023-10-12 13:46] LABS: % Basophils 0.4 % (0-2); % Eosinophils 0.1 % (0-6); % Monocytes 8.4 % (1.7-9.3); % Neutrophils 85.1 % (42.2-75.2); Absolute Basophils 0.1 10^3/uL (0-0.2); Absolute Immature Granulocytes 0.2 10^3/uL (0-0.05); Absolute Lymphocytes 0.9 10^3/uL (1.2-3.4); Absolute Monocytes 1.6 10^3/uL (0.1-0.6); Absolute Neutrophils 15.7 10^3/uL (1.4-6.5); Hematocrit 37.2 % (39.0-52.0); Hemoglobin 12.4 g/dL (13.0-18.0); Mean Corp Hgb Conc. 33.3 g/dL (33.0-37.0); Mean Corpuscular Hgb 27.7 pg (27.0-31.0); Mean Corpuscular Volume 83.2 fL (80.0-94.0); Mean Platelet Volume 10.6 fL (7.4-10.4); Nucleated Red Blood Cells % 0 % (-); Platelet Count 222 10^3/uL (130-400); Red Blood Cell Count 4.47 10^6/uL (4.70-6.10); Red Cell Dist. Width 14.8 % (11.5-14.5); White Blood Cell Count 18.5 10^3/uL (4.8-10.8)
[2023-10-12 14:03] LABS: ALT (SGPT) 16 U/L (0-50); AST (SGOT) 23 U/L (17-59); Albumin 4.4 g/dl (3.5-5.0); Alkaline Phosphatase 113 U/L (38-126); Blood Urea Nitrogen 20 mg/dl (9-20); Calcium 9.3 mg/dl (8.4-10.2); Carbon Dioxide 29 mmol/L (22-30); Chloride 100 mmol/L (98-107); Estimated Creatinine Clearance 89 ml/min; Glucose 131 mg/dl (70-99); Potassium 4.4 mmol/L (3.5-5.1); Sodium 139 mmol/L (135-145); Total Protein 7.3 g/dl (6.3-8.2); eGFR > 60.00
[2023-10-12 14:05] LABS: Lipase 75 U/L (23-300)
[2023-10-12 14:12] LABS: NT-proBNP 3520 pg/ml
[2023-10-12 15:10] LABS: Urine Albumin Negative (Neg - Trace); Urine Bilirubin Negative (Negative); Urine Character Clear (Clear); Urine Color Yellow; Urine Glucose Negative (Negative); Urine Ketone Negative (Negative); Urine Leukocyte Negative (Negative); Urine Nitrite Negative (Negative); Urine Occult Blood Negative (Negative); Urine Specific Gravity 1.005 (<1.030); Urine Urobilinogen Negative (Neg - 1+); Urine pH 6.5 (5.0-9.0)
[2023-10-12] MEDS: FLAGYL 500 MG 100 IV (15:43)
[2023-10-12] MEDS: LASIX 40 MG IV (15:46)
[2023-10-12] MEDS: ROCEPHIN 1000 MG IV (15:46)
--- NOTE | 2023-10-12 16:15 | HPS.HSE ---
Family Physician
-
Family Physician: Sivakumar Patel
Chief Complaint
-
sob
right sided abdominal pain
History of Present Illness
73-year-old male with a past medical history of CAD, CHF, atrial fibrillation, PVD, diabetes, neuropathy who presents to the emergency department for evaluation of shortness of breath since yesterday. he was noted to have right sided abdominal pain
for past few days. yesterday he started vomiting. denied diarrhea. was able to move small BM today. denied fever, chills, chest pain. stated sob worse with exertion. denied dysuria or hematuria.denied weight gain or LE edema.
CT with Acute colitis involving the ascending colon.received ceftriaxone and Flagyl in ER. admitting or further management.
Medical History
Past Medical History
Past Medical History: Reports Other
Additional Past Medical History:
Atrial fib), CAD, Prostate, Bladder CHF, HTN, Hypercholesterolemia, NIDDM and Other (Diabetic neuropathy, Left foot drop, Frequent Syncope, Pericarditis, PVD,
Past Surgical History: Reports Other
Additional Past Surgical History:
Coronary artery bypass graft
Mitral valve replacement
Left shoulder surgery
Prostatectomy
Amputation of left great toe
Social History
Tobacco: Non-smoker
Alcohol: None
Drug: None
Personal:
Living: With Family
Employment: Retired
Family History
Family History: Not pertinent
Allergies / Home Medications
Allergies reflects when Allergies were last updated in [employer].
Home Medications with original date entered in [employer]
Allergy/Medication List:
Allergies
Allergy/AdvReac Type Severity Reaction Status Date / Time
fish derived Allergy SEAFOOD-HIV Verified 10/12/23 12:10
ES
Home Medications
atorvastatin 80 mg tablet 80 mg PO QPM High cholesterol 01/19/20
gabapentin 600 mg tablet 600 mg PO TID Pain 12/19/22
zolpidem 5 mg tablet 5 mg PO HSPRN PRN sleep 12/19/22
acetaminophen 325 mg tablet 650 mg (2 x 325 mg) PO Q4HPRN PRN mild pain/BRAVO/temp> 100.4F #100 tabs 12/22/22
oxycodone 10 mg tablet 10 mg PO Q6H PRN Pain 02/26/23
glipizide 2.5 mg tablet, extended release 24 hr 2.5 mg PO QPM Diabetes #0 tabs 02/27/23
metformin 1,000 mg tablet 1,000 mg PO BID Diabetes #0 tabs 02/27/23
morphine 15 mg tablet,extended release 15 mg PO Q8H Pain 07/18/23
apixaban 5 mg tablet (Eliquis) 5 mg PO BID Blood clot prevention/tx #60 tabs 07/23/23
docusate sodium 100 mg capsule 100 mg PO BID Constipation #0 caps 07/23/23
furosemide 40 mg tablet 40 mg PO BID AT 0800,1600 Fluid retention/Swelling #60 tabs 07/23/23
metoprolol succinate 25 mg tablet,extended release 24 hr 12.5 mg (1/2 x 25 mg) PO DAILY Heart disease/condition #30 tabs 07/23/23
midodrine 5 mg tablet 5 mg PO TIDPRN PRN dizziness #10 tabs 07/23/23
polyethylene glycol 3350 17 gram oral powder packet (HealthyLax) 17 g PO DAILY constipation #0 ea 07/23/23
sennosides 8.6 mg tablet (Senna Laxative) 17.2 mg (2 x 8.6 mg) PO BID when you take opiates #0 tabs 07/23/23
Review of Systems
-
Constitutional: Reports No Symptoms
EENT: Reports No Symptoms
Respiratory: Reports Cough and Trouble Breathing
Cardiac: Reports No Symptoms
Abdomen/GI: Reports Abdominal Pain
: Reports No Symptoms
Musculoskeletal: Reports No Symptoms
Skin: Reports No Symptoms
Neurological: Reports No Symptoms
Endocrine: Reports No Symptoms
Hematologic/Lymphatic: Reports No Symptoms
Psych: Reports No Symptoms
Physical Exam
Vital Signs
Vital Signs
Temp Pulse Resp BP Pulse Ox
97.6 F 84 18 160/82 94
10/12/23 12:10 10/12/23 15:46 10/12/23 14:00 10/12/23 15:46 10/12/23 13:45
Physical Exam
General: Well Developed, Well Nourished and No Apparent Distress
HEENT: NormoCephalic, Moist mucous membranes and Atraumatic
Respiratory: Decreased Breath Sounds
Cardiac: S1/S2 and Regular Rhythm; No Murmur or Rub
GI: Soft, Non Tender, Non Distended and Normal Bowel Sounds; No Organomegaly
Rectal: Deferred by Provider
Musculoskeletal: No Clubbing, No Cyanosis and No Edema
Skin: No Rash
Neuro: Nonfocal/grossly intact
Laboratory Results
-
10/12/23 13:26
10/12/23 13:26
Laboratory Results
Total Bilirubin 1.0 mg/dl (0.2-1.3) 10/12/23 13:26
AST 23 U/L (17-59) 10/12/23 13:26
ALT 16 U/L (0-50) 10/12/23 13:26
Alkaline Phosphatase 113 U/L (38-126) 10/12/23 13:26
Lipase 75 U/L (23-300) 10/12/23 13:26
Data Reviewed
-
Diagnostic Radiology: Report Reviewed by me
CT Scan: Image Personally Visualized and interpreted
Lab Data: Labs Reviewed by me
Impression/Plan
-
#acute colitis
-wbc 18.5
-stool culture, stool for C. difficile, blood cultures ordered in ER
-CT abdomen pelvis with impression of Acute colitis involving the ascending colon. No extraluminal fluid collection or free air. Findings are likely infectious/inflammatory. The SMA is markedly atherosclerotic, however the distal branches do appear
patent.Partially visualized small right pleural effusion.
-Patient received ceftriaxone and Flagyl in ER, which is continued
-clear liquid diet,advance as tolerated
continue to trend wbc, Tylenol prn for fever
-GI/colorectal consulted
sob/acute hypoxic respiratory failure likely mild CHF exacerbation
-BNP 3520
-Chest x-ray with no acute pulmonary process
-Patient received a dose of Lasix in ER
-Echo 07/20/2023-normal LV size. Ejection fraction 53%. Mild concentric LVH. Bovine mitral valve replacement well-seated. Moderate MS. Mild to moderate MR. Mild TR.
-lasix 40mgiv continued
-strict I &O
-daily weight
-patient requiring 2l in ER
-ctm
-cardiology consulted.
# Anemia of chronic disease
-Hemoglobin stable at 12.4
-No active bleeding
-Continue to monitor
# Coronary disease with CABG in 2013
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
-Occluded QUIÑONES to LAD by cath 2019
-Continue statin
# Bioprosthetic mitral valve replacement 2013
#Peripheral artery disease with history of right femoral endarterectomy and right iliac stenting 2015
-Right SFA and popliteal [employer] and stenting in 2019
- continue statin.
# Status post TURBT on 07/16/2023 recurrent low grade bladder cancer
# History of TIA with left carotid stenosis status post CEA March 03, 2023- statin
# Paroxysmal atrial fibrillation
-eliquis
-metoprolol continued
#orthostatic hypotension
-midodrine continued
#chronic pain
-oxy, morphine continued
# Hypertension-history of chronic hypotension therefore not on any medicines as outpatient
=Beta-blockers added
# COPD-Stable.
# Chronic hypotension on midodrine chronic dizziness. Patient uses midodrine as needed at home if he feels dizzy. He states that he is well versed in how to manage as he sits down stands up slowly
# Diabetes with diabetic neuropathy
-, glipizide 2.5 mg daily, sliding cell coverage
-hold metformin
-Continue gabapentin
# Hyperlipidemia-continue statin
# Pulmonary hypertension
# History of prostate cancer with prostatectomy in 2008
# Medical marijuana use
# Chronic left foot drop
# Insomnia - Ambien as outpatient
# Yx-dexctz-xqvl in 2007
# DVT prophylaxis
-eliquis
#DNR
--- NOTE | 2023-10-12 17:05 | W.PN.UPDATE ---
Addendum entered and electronically signed by Holland Mello MD 10/12/23 18:04:
Per colorectal surgery on-call physician, will hold patient's Eliquis and start Heparin Drip in place of the Eliquis.
Original Note:
Update Note
Progress Note Update
This note serves as an addendum to the H&P by NUNO Fernandez, on October 12, 2023.
History of Presenting Illness
73-year-old male with a past medical history of CAD, CHF, atrial fibrillation, PVD, diabetes, neuropathy who presented to the emergency department for evaluation of shortness of breath of a 1-day duration, worse with exertion. He reported
right-sided abdominal pain for the past few days. He also has been vomiting along with his abdominal pain. He mentioned that his last bowel movement was a few days ago and was okay. He denied fever, chills, chest pain.
Vital Signs
Afebrile
HR okay
BP okay
RR okay
Oxygen saturations in the 90s on room air
Physical Exam
General: Not in acute distress
HEENT: Normocephalic
Respiratory: Decreased Breath Sounds Bilaterally
Cardiac: S1/S2 and Regular Rhythm
GI: Soft, Non Tender, Non Distended and Normal Bowel Sounds
Musculoskeletal: No Cyanosis and No Edema
Skin: Warm. Dry.
Neuro: AAOx3. Nonfocal/grossly intact
Assessment/Plan
#Presentation with abdominal pain and sob
#acute colitis
-wbc 18.5
-stool culture, stool for C. difficile, blood cultures ordered in ER
-CT abdomen pelvis as per radiologist's report, with impression of Acute colitis involving the ascending colon. No extraluminal fluid collection or free air. Findings are likely infectious/inflammatory. The SMA is markedly atherosclerotic, however
the distal branches do appear patent.Partially visualized small right pleural effusion.
-Patient received ceftriaxone and Flagyl in ER, which is continued
-clear liquid diet,advance as tolerated
continue to trend wbc, Tylenol prn for fever
-GI and colorectal surgery consulted
#Presentation with SOB and abdominal pain
sob/acute hypoxic respiratory failure likely mild CHF exacerbation
History of Congestive Heart Failure
-BNP 3520
-Chest x-ray with no acute pulmonary process
-Patient received a dose of Lasix in ER
-Echo 07/20/2023-normal LV size. Ejection fraction 53%. Mild concentric LVH. Bovine mitral valve replacement well-seated. Moderate MS. Mild to moderate MR. Mild TR.
-lasix 40mgiv continued
-strict I &O
-daily weight
-patient requiring 2l in ER
-ctm
-cardiology consulted, recommendations appreciated
# Anemia of chronic disease
-Hemoglobin stable at 12.4
-No active bleeding
-Continue to monitor
# Coronary disease with CABG in 2013
-Unsuccessful attempted PCI of LAD WAREHOUSE ASSOCIATE 03/07/16
-Occluded QUIÑONES to LAD by cath 2019
-Continue statin
# Bioprosthetic mitral valve replacement 2013
#Peripheral artery disease with history of right femoral endarterectomy and right iliac stenting 2015
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
- continue statin.
# Status post TURBT on 07/16/2023 recurrent low grade bladder cancer
# History of TIA with left carotid stenosis status post CEA March 03, 2023- statin
# Paroxysmal atrial fibrillation
-Continue eliquis
-metoprolol continued
#orthostatic hypotension
-midodrine continued
#chronic pain
-oxy, morphine continued
# Hypertension-history of chronic hypotension therefore not on any medicines as outpatient
=Beta-blockers added
# COPD-Stable.
# Chronic hypotension on midodrine chronic dizziness. Patient uses midodrine as needed at home if he feels dizzy. He states that he is well versed in how to manage as he sits down stands up slowly
# Diabetes with diabetic neuropathy
-, glipizide 2.5 mg daily, sliding cell coverage
-hold metformin
-Continue gabapentin
# Hyperlipidemia-continue statin
# Pulmonary hypertension
# History of prostate cancer with prostatectomy in 2008
# Medical marijuana use
# Chronic left foot drop
# Insomnia - Ambien as outpatient
#History of Hematuria
# Yl-iyrimn-cfwo in 2007
# DVT prophylaxis
-eliquis
#DNR (patient confirmed that he is DNR at the time of admission)
[2023-10-12 17:41] LABS: Lactic Acid 2.1 mmol/L (0.7-2.0)
--- NOTE | 2023-10-12 18:44 | CON.CRS ---
Medical History
-
History of Present Illness:
73-year-old male with PMH of CAD s/p CABG/MVR, CHF, A-fib (on Eliquis), PVD (s/p left first toe amp, left CEA), DM, COPD, HTN, HLD, left foot drop, bladder cancer s/p TURBT, prostate cancer s/p prostatectomy who presents with 2 days of right-sided
abdominal pain associated with 1 day of shortness of breath and nausea/vomiting x 1. This is never happened to him before. He has been constipated since Thursday, denies any diarrhea or blood per rectum. His last colonoscopy was in [address] Silva,
which had a poor prep, 5 mm rectal polyp and internal hemorrhoids.
In the ED, WBC 18.5, BNP 3520, UA negative, lactate 2.1, AFVSS, CT showing ascending colitis more likely infectious/inflammatory versus ischemic.
Past Medical History
Past Medical History: Other (as above)
Past Surgical History: Other (as above)
Social History
Tobacco: Former Smoker (2007)
Alcohol: None
Drug: None
Family History
Family History: Reviewed & Noncontributory (denies CRC or IBD)
Allergies / Home Medications
Allergy/AdvReac Type Severity Reaction Status Date / Time
fish derived Allergy SEAFOOD-HIV Verified 10/12/23 12:10
ES
�Medication �Instructions �Recorded �Confirmed �Type
atorvastatin 80 mg tablet 80 mg PO QPM High cholesterol 01/19/20 10/12/23 History
gabapentin 600 mg tablet 600 mg PO TID Pain 12/19/22 10/12/23 History
zolpidem 5 mg tablet 5 mg PO HSPRN PRN sleep 12/19/22 10/12/23 History
acetaminophen 325 mg tablet 650 mg (2 x 325 mg) PO Q4HPRN PRN 12/22/22 10/12/23 Rx
mild pain/BRAVO/temp> 100.4F #100 tabs
oxycodone 10 mg tablet 10 mg PO Q6H PRN Pain 02/26/23 10/12/23 History
glipizide 2.5 mg tablet, extended 2.5 mg PO QPM Diabetes #0 tabs 02/27/23 10/12/23 Rx
release 24 hr
metformin 1,000 mg tablet 1,000 mg PO BID Diabetes #0 tabs 02/27/23 10/12/23 Rx
morphine 15 mg tablet,extended 15 mg PO Q8H Pain 07/18/23 10/12/23 History
release
apixaban 5 mg tablet (Eliquis) 5 mg PO BID Blood clot 07/23/23 10/12/23 Rx
prevention/tx #60 tabs
docusate sodium 100 mg capsule 100 mg PO BID Constipation #0 caps 07/23/23 10/12/23 Rx
furosemide 40 mg tablet 40 mg PO BID AT 0800,1600 Fluid 07/23/23 10/12/23 Rx
retention/Swelling #60 tabs
metoprolol succinate 25 mg 12.5 mg (1/2 x 25 mg) PO DAILY 07/23/23 10/12/23 Rx
tablet,extended release 24 hr Heart disease/condition #30 tabs
midodrine 5 mg tablet 5 mg PO TIDPRN PRN dizziness #10 07/23/23 10/12/23 Rx
tabs
polyethylene glycol 3350 17 gram 17 g PO DAILY constipation #0 ea 07/23/23 10/12/23 Rx
oral powder packet (HealthyLax)
sennosides 8.6 mg tablet (Senna 17.2 mg (2 x 8.6 mg) PO BID when 07/23/23 10/12/23 Rx
Laxative) you take opiates #0 tabs
Review of Systems
-
A 10 point review of systems was completed, and was negative except as per HPI.
Physical Exam
Vital Signs
Temp 98.2 F 10/12/23 18:16
Pulse 91 10/12/23 18:16
Resp Rate 20 10/12/23 18:16
Blood pressure 138/94 10/12/23 18:16
SaO2 100 10/12/23 18:16
10/11/23 10/12/23 10/13/23
06:59 06:59 06:59
Actual Weight 75.92 kg
Body Mass Index (BMI) 21.5
Lab Results / Allergies
10/12/23 13:26
WBC 18.5 10^3/uL (4.8-10.8) H 10/12/23 13:26
Hgb 12.4 g/dL (13.0-18.0) L 10/12/23 13:26
Hct 37.2 % (39.0-52.0) L 10/12/23 13:26
Plt Count 222 10^3/uL (130-400) 10/12/23 13:26
Abs Immat Gran (auto) 0.2 10^3/uL (0-0.05) H 10/12/23 13:26
Neutrophils % 85.1 % (42.2-75.2) H 10/12/23 13:26
Allergy/AdvReac Type Severity Reaction Status Date / Time
fish derived Allergy SEAFOOD-HIV Verified 10/12/23 12:10
ES
Physical Exam
General: Well Developed, No Apparent Distress and Comfortable
HEENT: Normocephalic and Atraumatic
Respiratory: Non Labored Respirations
GI: Soft, Non Distended and Tender (Mildly tender in the RLQ, minimally tender in the RUQ, no rebound or guarding)
Skin: Warm and Dry
Neuro: AO x 3
Data Reviewed
-
CT Scan: Image Personally Visualized and interpreted and Discussed with Physician
Labs: Labs Reviewed by me and Discussed with Patient
Assessment / Plan
-
73-year-old male with PMH of CAD s/p CABG/MVR, CHF, A-fib (on Eliquis), PVD (s/p left first toe amp, left CEA), DM, COPD, HTN, HLD, left foot drop, bladder cancer s/p TURBT, prostate cancer s/p prostatectomy who presents with 2 days of right-sided
abdominal pain associated with 1 day of shortness of breath and nausea/vomiting x 1. This is never happened to him before. He has been constipated since Thursday, denies any diarrhea or blood per rectum. His last colonoscopy was in [address] Silva,
which had a poor prep, 5 mm rectal polyp and internal hemorrhoids.
In the ED, WBC 18.5, BNP 3520, UA negative, lactate 2.1, AFVSS, CT showing ascending colitis more likely infectious/inflammatory versus ischemic.
� No acute surgical intervention currently indicated
� Right-sided colitis on CT, concerning for infectious versus inflammatory versus ischemic; patient has multiple risk factors for ischemic colitis, but this is not in the classic distribution; therefore, infectious versus inflammatory also a
possibility
� Appreciate GI; follow-up stool studies and C. difficile; recommend CRP and fecal calprotectin
-Defer to GI if repeat cscope is necessary this admission vs outpatient
� Recommend hep drip for history of MVR and A-fib while elucidating the etiology of his colitis
� Pain control, prefer nonnarcotics if possible
� Appreciate cardiology for possible CHF exacerbation
� Continue IV antibiotics and diet per primary
[2023-10-12 18:53] LABS: Glucose - Point of Care 213 mg/dl (70-99)
[2023-10-12] MEDS: COLACE 100 MG PO (19:48)
[2023-10-12] MEDS: GLUCOTROL XL (EXTENDED RELEASE) 2.5 MG PO (19:49)
[2023-10-12] MEDS: LIPITOR 80 MG PO (19:49)
[2023-10-12] MEDS: SENOKOT 17.2 MG PO (19:49)
[2023-10-12 20:27] LABS: Hematocrit 40.8 % (39.0-52.0); Mean Corp Hgb Conc. 34.3 g/dL (33.0-37.0); Mean Corpuscular Hgb 27.6 pg (27.0-31.0); Mean Corpuscular Volume 80.3 fL (80.0-94.0); Mean Platelet Volume 10.2 fL (7.4-10.4); Platelet Count 272 10^3/uL (130-400); Red Blood Cell Count 5.08 10^6/uL (4.70-6.10); Red Cell Dist. Width 15.1 % (11.5-14.5); White Blood Cell Count 20.1 10^3/uL (4.8-10.8)
[2023-10-12 20:31] LABS: APTT 32.9 Sec (23.4-35.0)
[2023-10-12 21:15] LABS: Glucose - Point of Care 191 mg/dl (70-99)
[2023-10-12] MEDS: HEPARIN 25000 UNITS/250 ML IV (21:15)
[2023-10-12] MEDS: NEURONTIN 600 MG PO (22:33)
[2023-10-12] MEDS: MS CONTIN (EXTENDED RELEASE) 15 MG PO (22:34)
[2023-10-13] VITALS (12 sets, daily range): BP systolic 96–170; BP diastolic 41–84; BMI 21.5; BMI 21.7
[2023-10-13] MEDS: ZOFRAN 4 MG IV (00:05)
[2023-10-13] MEDS: TYLENOL 650 MG PO (00:05)
[2023-10-13] MEDS: FLAGYL 500 MG 100 IV ×4 (00:06→23:27)
--- NOTE | 2023-10-13 03:27 | PTCARENOTE ---
Received pt from ER,awake,oriented,tolerated transfer well.Pt presents with flat affect,soft spoken minimal eye contact,pt ambulated in to room without difficulty,but stiff with movements.Speech clear,hand tremors very pronounced,weak grasps.VS
stable afebrile.Pt physical assessment preformed,pt cooperative,asking for a drug to help with the tremors.Ativan 0.5mg IV given with + results at this time.Close observation ongoing throughout the night.
[2023-10-13 03:28] LABS: Hematocrit 36.4 % (39.0-52.0); Hemoglobin 12.5 g/dL (13.0-18.0); Mean Corp Hgb Conc. 34.3 g/dL (33.0-37.0); Mean Corpuscular Hgb 28.2 pg (27.0-31.0); Mean Platelet Volume 10.4 fL (7.4-10.4); Platelet Count 233 10^3/uL (130-400); Red Blood Cell Count 4.44 10^6/uL (4.70-6.10); Red Cell Dist. Width 14.8 % (11.5-14.5)
[2023-10-13 03:42] LABS: APTT 52.1 Sec (23.4-35.0)
[2023-10-13 04:00] LABS: ALT (SGPT) 14 U/L (0-50); AST (SGOT) 22 U/L (17-59); Alkaline Phosphatase 106 U/L (38-126); Blood Urea Nitrogen 22 mg/dl (9-20); Calcium 9.2 mg/dl (8.4-10.2); Carbon Dioxide 29 mmol/L (22-30); Chloride 98 mmol/L (98-107); Direct Bilirubin 0.2 mg/dl (0.0-0.4); Estimated Creatinine Clearance 102 ml/min; Glucose 129 mg/dl (70-99); HDL Cholesterol 41 mg/dl; LDL Cholesterol, Calculated 52 mg/dl; Magnesium 1.8 mg/dl (1.6-2.3); Sodium 137 mmol/L (135-145); Total Bilirubin 1.2 mg/dl (0.2-1.3); Total Cholesterol 105 mg/dl (50-199); Triglyceride 64 mg/dl (10-149); Very Low Density Lipoprotein 12 mg/dl (0-30); eGFR > 60.00
[2023-10-13 04:34] LABS: TSH Reflex To Free T4 0.28 uIU/ml (0.47-4.68)
[2023-10-13 05:03] LABS: Free T4 1.24 ng/dl (0.78-2.19)
[2023-10-13] MEDS: MS CONTIN (EXTENDED RELEASE) 15 MG PO ×3 (05:30→23:27)
[2023-10-13 07:48] LABS: Glucose - Point of Care 147 mg/dl (70-99)
[2023-10-13] MEDS: MIRALAX 17 GRAMS PO (08:23)
[2023-10-13] MEDS: NEURONTIN 600 MG PO ×2 (08:24→23:27)
[2023-10-13] MEDS: SENOKOT 17.2 MG PO (08:24)
[2023-10-13] MEDS: COLACE 100 MG PO (08:24)
[2023-10-13] MEDS: TOPROL XL 12.5 MG PO (08:24)
[2023-10-13] MEDS: LASIX 40 MG IV (08:25)
--- NOTE | 2023-10-13 08:31 | VNURNOTE ---
Chart reviewed. [facility] Will continue to follow hospital course.
--- NOTE | 2023-10-13 08:38 | CON.CAR ---
Addendum entered and electronically signed by Chris Garcia DO 10/13/23 13:30:
I saw and examined the patient.
The Bindery Supervisor's note was reviewed and I agree with the note.
Comment:
Plan:
Continue gentle IV diuresis. Creatinine remains stable.
Recent echo reviewed with preserved LV function and well-seated bioprosthetic MVR with moderate mitral stenosis and mild to moderate mitral regurgitation.
We reviewed his coronary anatomy. He has known non-revascularizable disease.
He is at moderate to elevated risk from a cardiovascular standpoint given his comorbidities including his known nonrevascularizable CAD and previous history of heart failure and need for urgent surgery.. However he is overall compensated presently
for OR.
Recommend avoiding large fluid shifts and hypotension.
Remains in sinus with brief atrial tachycardia. Anticoagulation held in anticipation of surgery. Resume once ok with surgery.
Recommend close clinical and telemetry perioperative monitoring. Patient is likely to go to IMU/ICU post surgery.
Colorectal surgery was updated
Original Note:
Consultation
Consultation Request
Date/Time Consultation Performed: 10/13/23
Requesting Provider: Dr. Mello
Performing Provider: Radha Irizarry PA-C for Dr. Garcia
Reason for Consultation: CHF
Medical History
-
Chief Complaint: abd pain
History of Present Illness:
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
TIA with left CEA 02/2023, several admissions for chronic HFimpEF. He presented to [facility] due to right-sided abdominal pain which started on Thursday. He reports he had dry heaving and yesterday could not keep anything down. Imaging
with evidence of acute colitis. He is planning to go to the OR this afternoon/evening for colectomy. Cardiology consulted due to concern for element of acute CHF. proBNP 3520. CXR without acute abnormalities noted however CTAP with evidence of small
R pleural effusion. He has been compliant with po lasix 40mg BID.
PMH:
-chronic HFpEF
-CM EF 15-20% by echo Jan 2020 with EF 30% by echo 04/20/19 with h/o recovered CM EF 65% by echo 05/2022
-CAD s/p CABG 02/2014 with occluded QUIÑONES to LAD by cath 2019, but patent SVG seq to Diag-OM-PDA
-CAD s/p unsuccessful attempted PCI of LAD SAXOPHONE ASSEMBLER 03/07/16
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
-PAD s/p right femoral endarterectomy and right iliac stenting 02/2016
-PAD s/p right SFA and popliteal REACTOR OPERATOR and stent 10/24/19
-possible TIA with noted L carotid stenosis s/p L CEA 03/03/23
-Paroxysmal Afib on chronic eliquis
-HTN
-Moderate to severe chronic obstructive pulmonary disease
-DM2 with Diabetic neuropathy
-Pulmonary HTN
-Hx prostate cancer s/p surgery 2007
-concern for bladder cancer s/p TURBT 07/16/23, noninvasive low-grade papillary urothelial carcinoma
-Medical marijuana use
-former smoker
Past Medical History
Past Medical History: Other (in HPI)
Social History
Tobacco: Former Smoker
Personal:
Living: With Family
Employment: Retired
Allergies / Home Medications
Allergy/AdvReac Type Severity Reaction Status Date / Time
fish derived Allergy SEAFOOD-HIV Verified 10/12/23 12:10
ES
�Medication �Instructions �Recorded �Confirmed �Type
atorvastatin 80 mg tablet 80 mg PO QPM High cholesterol 01/19/20 10/12/23 History
gabapentin 600 mg tablet 600 mg PO TID Pain 12/19/22 10/12/23 History
zolpidem 5 mg tablet 5 mg PO HSPRN PRN sleep 12/19/22 10/12/23 History
acetaminophen 325 mg tablet 650 mg (2 x 325 mg) PO Q4HPRN PRN 12/22/22 10/12/23 Rx
mild pain/BRAVO/temp> 100.4F #100 tabs
oxycodone 10 mg tablet 10 mg PO Q6H PRN Pain 02/26/23 10/12/23 History
glipizide 2.5 mg tablet, extended 2.5 mg PO QPM Diabetes #0 tabs 02/27/23 10/12/23 Rx
release 24 hr
metformin 1,000 mg tablet 1,000 mg PO BID Diabetes #0 tabs 02/27/23 10/12/23 Rx
morphine 15 mg tablet,extended 15 mg PO Q8H Pain 07/18/23 10/12/23 History
release
apixaban 5 mg tablet (Eliquis) 5 mg PO BID Blood clot 07/23/23 10/12/23 Rx
prevention/tx #60 tabs
docusate sodium 100 mg capsule 100 mg PO BID Constipation #0 caps 07/23/23 10/12/23 Rx
furosemide 40 mg tablet 40 mg PO BID AT 0800,1600 Fluid 07/23/23 10/12/23 Rx
retention/Swelling #60 tabs
metoprolol succinate 25 mg 12.5 mg (1/2 x 25 mg) PO DAILY 07/23/23 10/12/23 Rx
tablet,extended release 24 hr Heart disease/condition #30 tabs
midodrine 5 mg tablet 5 mg PO TIDPRN PRN dizziness #10 07/23/23 10/12/23 Rx
tabs
polyethylene glycol 3350 17 gram 17 g PO DAILY constipation #0 ea 07/23/23 10/12/23 Rx
oral powder packet (HealthyLax)
sennosides 8.6 mg tablet (Senna 17.2 mg (2 x 8.6 mg) PO BID when 07/23/23 10/12/23 Rx
Laxative) you take opiates #0 tabs
Review of Systems
-
History Source: Patient
All other systems: Negative unless noted
Physical Exam
Vital Signs
Temp Pulse Resp BP Pulse Ox
97.6 F 86 16 133/70 95
10/13/23 03:20 10/13/23 03:20 10/13/23 03:20 10/13/23 03:20 10/13/23 03:20
Lab Results
10/13/23 03:20
10/13/23 03:20
[id number] Pept 3520 pg/ml 10/12/23 13:26
Physical Exam
General: No Apparent Distress and Comfortable
HEENT: Normocephalic, Anicteric and Moist Mucous Membranes
Respiratory: Crackles (few at RLB) and Non Labored Respirations
Cardiac: S1/S2, Regular Rhythm and Murmur
Musculoskeletal: No Clubbing, No Cyanosis and No Edema
Skin: Warm and Dry
Neuro: AO x 3
Impression / Plan
-
PCP: Dr. Sivakumar Patel
Primary Building Drafting Officer: Dr. Garcia
Impression:
-Presentation with abd pain, N/V
-Acute colitis
-Concern for acute on chronic HFpEF
-CM EF 15-20% by echo Jan 2020 with EF 30% by echo 04/20/19 with h/o recovered CM EF 65% by echo 05/2022, EF 53% by echo 07/20/23
-CAD
s/p unsuccessful attempted PCI of LAD SAXOPHONE ASSEMBLER 03/07/16
CABG with occluded QUIÑONES to LAD by cath 2019, but patent SVG seq to Diag-OM-PDA 02/2014
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
-PAD s/p right femoral endarterectomy and right iliac stenting 02/2016
-PAD s/p right SFA and popliteal REACTOR OPERATOR and stent 10/24/19
-possible TIA with noted L carotid stenosis s/p L CEA 03/03/23
-Paroxysmal Afib
-Chronic Eliquis OAC
-HTN
-Moderate to severe chronic obstructive pulmonary disease
-DM2 with Diabetic neuropathy
-Pulmonary HTN
-Hx prostate cancer s/p surgery 2007
-Medical marijuana use
-former smoker
CATH 2019: Left main and three-vessel [place] coronary total occlusions, patent sequential SVG to diagonal/OM/PDA with collaterals to LAD, and occluded QUIÑONES to LAD, anterolateral wall hypokinesis with mild LV dysfunction
Echo 08/2022: Mild LVH, mid to apical anterior and anteroseptal hypokinesis, EF 50%, bioprosthetic mitral valve with peak/mean gradients 10/6 mmHg, GASTON 1.5 cm�, trace MR, dilated left atrium, aortic sclerosis, normal right heart cardiac
Echo 07/20/2023: EF 53%, mild concentric LVH. Bovine mitral valve replacement well-seated peak/mean gradient 20/10 mmHg with MV area 1.4 cm�, moderate MS with mild to moderate MR. Mild TR with PAP 35 mmHg
Plan:
-Patient presents with abd pain, N/V. found by CTAP to have acute colitis. planned for OR later today
-cardiology consulted for concern for element of acute CHF. proBNP 3520. CTAP with small R pleural effusion. on po lasix 40mg BID as OP, currently on 40mg IV lasix daily. Cr stable at 0.7
-will follow volume status closely as also has history of significant orthostatic hypotension
-in SR with several brief runs of atach/afib. was previously remotely on amiodarone which was stopped 09/2014 as had remained in SR (no listed intolerances). pending burden seen on tele while admitted, may consider resuming if arrhythmia felt to be
contributing to CHF
-eliquis on hold. currently IV heparin on hold with plan for OR later today, resume post op as able
-given his comorbidities as above, he is high cardiovascular risk for any surgical intervention however this risk is not prohibitive due to urgency of this surgery
-we will continue to monitor post operatively. would have low threshold to monitor in higher level of care post operatively given his significant CAD and history of flash pulmonary edema.
-d/w nursing, hospitalist
Data Reviewed
-
EKG: Tracing Personally Visualized and interpreted
Radiology: Report Reviewed by me
CT Scan: Report Reviewed by me
Medical Tests (Nuc Med, Echo etc): Report Reviewed by me
Labs: Labs Reviewed by me
Old Records: Reviewed
--- NOTE | 2023-10-13 09:20 | CON.GI ---
Addendum entered and electronically signed by Deann Montanez DO 10/13/23 12:09:
I saw and examined the patient.
The COMMUNITY AFFAIRS MANAGER or PA's note was reviewed and I agree with the note.
Comment:
Herrera Angel is a 73 y.o. male w/ pmhx CAD s/p CABG/MVR, CHF, A-fib on Eliquis, PVD with prior left first toe amp, left CEA, DM, COPD, HTN, HLD, left foot drop, bladder cancer with prior TURBT, prostate cancer s/p prostatectomy who was admitted
with acute onset right-sided abdominal pain found to have a significant leukocytosis of 18,500 which subsequently increased to 24,000, elevated lactate of 2.1 and fevers with a temperature of 101, otherwise hemodynamically stable. CT abdomen and
pelvis showed evidence of isolated right-sided colitis, the SMA is markedly atherosclerotic however distal branches appear patent. At time of evaluation patient was uncomfortable but in no active distress, tender palpation in the right lower and
upper quadrants of the abdomen.
Differential diagnosis includes infectious versus ischemic versus inflammatory, distribution of ischemia is not typical especially given patency of vessels, inflammatory would be unlikely given lack of chronicity of symptoms. At baseline he is
constipated, has not had any diarrhea, making infectious less likely as well. Prior colonoscopy in 2019 with suboptimal prep.
Due to worsening white count, fever and pain, the decision was made to take patient to the OR today. Will defer care to colorectal surgery. Patient should follow-up with GI as an outpatient for colonoscopy. Will continue to follow peripherally,
please call with questions.
Original Note:
Consultation
-
Date/Time Consultation Requested: 10/12/23 1800
Date/Time Consultation Performed: 10/13/23 0920
Requesting Provider: NUNO Carrasco
Performing Provider: NUNO Abreu, Sheryl Montanez DO
Reason for Consultation: colitis
Medical History
Chief Complaint / HPI
Chief Complaint: abdominal pain
History of Present Illness:
Pt is a 73yo with hx CAD s/p CABG/MVR, CHF, A-fib on Eliquis, PVD with prior left first toe amp, left CEA, DM, COPD, HTN, HLD, left foot drop, bladder cancer with prior TURBT, prostate cancer s/p prostatectomy who presents with right sided
abdominal pain for 2 days prior to admission. On admission noted with WBC 18,500 with further rise to 24,000 and elevated lactate 2.1 and fever 101 after admission. 10/11 CT A/p on admission with concern for acute colitis in ascending colon
without fluid collection or free air . The SMA is markedly atherosclerotic, however the distal branches do appear patent. Pt was noted with worsening pain and further rise in WBC's.
In reviewing with patient started with difficulty to pass stool on Thursday. He has some loose and hard stool without blood. Pain become severe and he started with some nausea and dry heaves with decreased appetite over weekend. He denies any
recent travel or abx but did have recent prednisone for concern for eye issue and admits had some GI issues with recent viral syndrome. He denies dysphagia, GERD, nausea, vomiting, but has some chronic bowel irregularities with constipation
with senna and Miralax use. Hx colonoscopy [address] Yang prep, 5mm rectal polyp, non bleeding hemorrhoids was to repeat 6 months but not completed. bx with HP polyp.
Past Medical History
Past Medical History: Arrhythmias (afib), Cancer (prostate/bladder CA), CHF, COPD, HTN, Hypercholesterolemia, NIDDM and Other (diabetic neuropathy, left foot drop, frequent syncope, pericarditis, PVD, colon polyps, hemorrhoids)
Past Surgical History: Cardiac (CABG, MVR), Urological (prostatectomy, TURBT) and Other (s/p left first toe amp, femoral endareterectomy/right iliac stenting, right SFA and poplieal WATCHER LOOKOUT TOWER and stent left CEA)
Social History
Tobacco: Non-Smoker
Alcohol: None
Drug: Marijuana (daily for sleep )
Personal:
Living: With Family
Employment: Retired
Family History
Family History: Other (mother with hx breast CA, father diet of old age)
Allergies / Home Medications
Allergy/AdvReac Type Severity Reaction Status Date / Time
fish derived Allergy SEAFOOD-HIV Verified 10/12/23 12:10
ES
�Medication �Instructions �Recorded
atorvastatin 80 mg tablet 80 mg PO QPM High cholesterol 01/19/20
gabapentin 600 mg tablet 600 mg PO TID Pain 12/19/22
zolpidem 5 mg tablet 5 mg PO HSPRN PRN sleep 12/19/22
acetaminophen 325 mg tablet 650 mg (2 x 325 mg) PO Q4HPRN PRN 12/22/22
mild pain/BRAVO/temp> 100.4F #100 tabs
oxycodone 10 mg tablet 10 mg PO Q6H PRN Pain 02/26/23
glipizide 2.5 mg tablet, extended 2.5 mg PO QPM Diabetes #0 tabs 02/27/23
release 24 hr
metformin 1,000 mg tablet 1,000 mg PO BID Diabetes #0 tabs 02/27/23
morphine 15 mg tablet,extended 15 mg PO Q8H Pain 07/18/23
release
apixaban 5 mg tablet (Eliquis) 5 mg PO BID Blood clot 07/23/23
prevention/tx #60 tabs
docusate sodium 100 mg capsule 100 mg PO BID Constipation #0 caps 07/23/23
furosemide 40 mg tablet 40 mg PO BID AT 0800,1600 Fluid 07/23/23
retention/Swelling #60 tabs
metoprolol succinate 25 mg 12.5 mg (1/2 x 25 mg) PO DAILY 07/23/23
tablet,extended release 24 hr Heart disease/condition #30 tabs
midodrine 5 mg tablet 5 mg PO TIDPRN PRN dizziness #10 07/23/23
tabs
polyethylene glycol 3350 17 gram 17 g PO DAILY constipation #0 ea 07/23/23
oral powder packet (HealthyLax)
sennosides 8.6 mg tablet (Senna 17.2 mg (2 x 8.6 mg) PO BID when 07/23/23
Laxative) you take opiates #0 tabs
Review of Systems
-
History Source: Patient
Constitutional: Reports Fever
EENT: Reports No Symptoms
Respiratory: Reports No Symptoms
Cardiac: Reports No Symptoms
Abdomen/GI: Reports Abdominal Pain, Nausea and Vomiting (dry heaves)
: Reports No Symptoms
Musculoskeletal: Reports No Symptoms
Skin: Reports No Symptoms
Neurological: Reports Weakness
Endocrine: Reports No Symptoms
Hematologic/Lymphatic: Reports No Symptoms
Vital Signs
Temp Pulse Resp BP Pulse Ox
99.3 F 91 18 152/76 95
10/13/23 07:45 10/13/23 07:45 10/13/23 07:45 10/13/23 07:45 10/13/23 03:20
Physical Exam
Exam
General: Well Developed, Well Nourished and Other (some distress with pain )
HEENT: Normocephalic and Anicteric
Respiratory: Clear
Cardiac: Regular Rhythm
GI: Soft, Non Distended and Tender (right sided )
Musculoskeletal: No Clubbing and No Cyanosis
Skin: Warm and Dry
Neuro: Awake, Alert and AO x 3
Psych: Calm
Results
WBC 24.0 10^3/uL (4.8-10.8) H 10/13/23 03:20
Hgb 12.5 g/dL (13.0-18.0) L 10/13/23 03:20
Hct 36.4 % (39.0-52.0) L 10/13/23 03:20
MCV 82.0 fL (80.0-94.0) 10/13/23 03:20
Plt Count 233 10^3/uL (130-400) 10/13/23 03:20
Absolute Neuts (auto) 15.7 10^3/uL (1.4-6.5) H 10/12/23 13:26
APTT 52.1 Sec (23.4-35.0) H 10/13/23 03:20
Sodium 137 mmol/L (135-145) 10/13/23 03:20
Potassium 4.0 mmol/L (3.5-5.1) 10/13/23 03:20
Chloride 98 mmol/L (98-107) 10/13/23 03:20
Carbon Dioxide 29 mmol/L (22-30) 10/13/23 03:20
BUN 22 mg/dl (9-20) H 10/13/23 03:20
Creatinine 0.7 mg/dL (0.7-1.3) 10/13/23 03:20
Calcium 9.2 mg/dl (8.4-10.2) 10/13/23 03:20
Total Bilirubin 1.2 mg/dl (0.2-1.3) 10/13/23 03:20
AST 22 U/L (17-59) 10/13/23 03:20
ALT 14 U/L (0-50) 10/13/23 03:20
Alkaline Phosphatase 106 U/L (38-126) 10/13/23 03:20
Lipase 75 U/L (23-300) 10/12/23 13:26
Diagnostic Image Results:
10/12/23 CT A/p with IV contrast
Acute colitis involving the ascending colon. No extraluminal fluid collection or free air. Findings are likely infectious/inflammatory. The SMA is markedly atherosclerotic, however the distal branches do appear patent.
Partially visualized small right pleural effusion
Prior GI Procedures:
EGD: years ago
Colonoscopy: [address] Yang prep, 5mm rectal polyp, non bleeding hemorrhoids was to repeat 6 months but not completed. bx with HP polyp.
Assessment / Plan
-
Pt is a 73yo with hx CAD s/p CABG/MVR, CHF, A-fib on Eliquis, PVD with prior left first toe amp, left CEA, DM, COPD, HTN, HLD, left foot drop, bladder cancer with prior TURBT, prostate cancer s/p prostatectomy who presents with right sided
abdominal pain for 2 days prior to admission. On admission noted with WBC 18,500 with further rise to 24,000 and elevated lactate 2.1 and fever 101 after admission. 10/11 CT A/p on admission with concern for acute colitis in ascending colon
without fluid collection or free air . The SMA is markedly atherosclerotic, however the distal branches do appear patent. Pt was noted with worsening pain and further rise in WBC's.
-ascending colitis
-worsening leukocytosis
-fever
-elevated lactate level
-elevated ProBNP, CHF
-recent steroid use fo eye issue
-hx colon polyp with poor prep colon in 2019 without follow up completed
other med problems:
-Afib on Eliquis prior to admission
-CAD with prior CABG/ MVR
-CHF
-PVD with prior toe amp, and vascular angio and stenting
-CEA
-DM
-COPD
-HTN
-hyperlipidemia
-bladder CA - TURBT
-prostate CA with prostatectomy
-daily Marijuana use
PLAN:
etiology of symptoms with concern for right sided colitis
review with colorectal PA Marilou --with worsening leukocytosis, fever and pain for OR today
NPO
consider OP colonoscopy after improved as incomplete in 2019 without follow up
hold on stool studies with no further stools overnight
blood cx pending
cont abx
Eliquis hold management per cardiology
appreciate cards input with plan for OR and hx cardiac disease
-
-
Thank you for consultation and allowing me to participate in the patient's care. Please call the electronic court recorder GI physician during the after hours with any questions or concerns.
--- NOTE | 2023-10-13 09:30 | WOUNDNOTE ---
SPEEDY RN NOTE: Stoma sited patient as requested R quadrants only, for surgery this afternoon. Identified rectus muscle, avoided creases and scars. RUQ marked 7cm from midline and 7.5cm proximal from umbilical line. RLQ marked 7cm from midline and 1cm
distal from umbilical line. Patient made aware that surgeon has final decision during surgery. Answered all questions and will follow if needed.
[2023-10-13 10:39] LABS: APTT 35.7 Sec (23.4-35.0)
[2023-10-13 11:12] LABS: Glycohemoglobin (HgbA1c) 5.3 % (4.0-5.6)
--- NOTE | 2023-10-13 11:13 | CM ---
Patient seen bedside.
IA completed.
Patient lives with spouse in a 2 story home.
Patient independent prior to admission.
Patient occasionally drives.
patient does not use assistive devices.
Patient denies difficulties with food, housing, or bills.
patient has transportation home.
Patient current with [facility].
TT to [facility] liaison.
PCP: Dr Hein
Pharmacy: [facility]
Plan: home with VN whens table.
[2023-10-13 11:54] LABS: Glucose - Point of Care 118 mg/dl (70-99)
--- NOTE | 2023-10-13 12:50 | W.PN.CRS1 ---
Addendum entered and electronically signed by Marcelino Cid MD 10/13/23 13:10:
Patient's updated via phone conversation.
Original Note:
Today's Communication / Plan
-
OR today
Assessment/Plan
-
73-year-old male with PMH of CAD s/p CABG/MVR, CHF, A-fib (on Eliquis), PVD (s/p left first toe amp, left CEA), DM, COPD, HTN, HLD, left foot drop, bladder cancer s/p TURBT, prostate cancer s/p prostatectomy who presents with 2 days of right-sided
abdominal pain associated with 1 day of shortness of breath and nausea/vomiting x 1. This is never happened to him before. He has been constipated since Thursday, denies any diarrhea or blood per rectum. His last colonoscopy was in [address] Silva,
which had a poor prep, 5 mm rectal polyp and internal hemorrhoids.
In the ED, WBC up to 24.0, tmax 101.0
� Given WBC, fever, and worsening pain, will take to OR today for an open right colectomy. Discussed with patient who is in agreement. Keep NPO now. Stopped heparin gtt on rounds at 8am. Will give Kcentra prior to surgery to help reverse
anticoagulating effects of Eliquis.
- Wound RN to alexander patient for stoma
� Pain control, prefer non-narcotics if possible
� Appreciate cardiology for possible CHF exacerbation
� Continue IV antibiotics and diet per primary
Subjective Data
Subjective Data
Date of Service: October 13, 2023
Patient states his right lower quadrant pain is much worse today. He had a fever last night. He denies nausea or vomiting.
Objective Data
-
Vital Signs
Temp Pulse Resp BP Pulse Ox
98.6 F 79 18 96/47 94
10/13/23 11:38 10/13/23 11:38 10/13/23 11:38 10/13/23 11:38 10/13/23 11:38
Intake & Output
10/12/23 10/13/23 10/14/23
06:59 06:59 06:59
Intake Total 532 / 532
Output Total 100 / 100
Balance 432 / 432
Intake:
Oral fluids 360 / 360
IV piggybacks 172 / 172
Output:
Urine, Voided 100 / 100
Lab Results
10/13/23 03:20
10/13/23 03:20
Physical Exam
-
General: No Acute Distress and AOx3
Abdomen: Soft, Non Distended and Tender (RLQ)
Skin: Warm and Dry
--- NOTE | 2023-10-13 15:26 | W.PN.HOSP.TC ---
Today's Communication/Plan
-
Surgery today
Antibiotics broadened given worsening leukocytosis
Transfer to IMU (or if needed, ICU) post-op
Assessment / Plan
Assessment / Plan
Physical Exam
General: Not in acute distress
HEENT: Normocephalic
Respiratory: Decreased Breath Sounds Bilaterally
Cardiac: S1/S2 and Regular Rhythm
GI: Soft, Non Tender, Non Distended and Normal Bowel Sounds
Musculoskeletal: No Cyanosis and No Edema
Skin: Warm. Dry.
Neuro: AAOx3. Nonfocal/grossly intact
Assessment/Plan
#Presentation with abdominal pain and shortness of breath
#Acute colitis
#Atherosclerotic Superior Mesenteric Artery
#Leukocytosis
-Stool culture, stool for C. difficile, blood cultures ordered in ER: follow-up results
-Patient received ceftriaxone and Flagyl in ER --> now switched to Cefepime and Flagyl given worsening leukocytosis and for better coverage
-NPO
-GI and colorectal surgery consulted
-Colorectal surgery to take patient to the OR today given his known right-sided colitis with concern for ischemia as well as new fever, rising white count, and increased abdominal pain
-Low threshold to monitor in higher level of care post operatively given his significant CAD and history of flash pulmonary edema.
-Transfer to IMU (or if needed ICU) post-op
#Small Right Pleural Effusion on CT Imaging
#Presentation with SOB and abdominal pain
#Concern for acute on chronic HFpEF
#History of Pulmonary Edema
-BNP 3520
-Daily Lasix 40 mg IV continued
-Strict I's & O's and daily weights
-Patient required 2 liters in the ER
-Cardiology consulted, recommendations appreciated
# Anemia of chronic disease
-Hemoglobin stable
-No active bleeding
-Continue to monitor
# Coronary disease with CABG in 2013
-Unsuccessful attempted PCI of LAD APPRENTICE ARCHITECT 03/07/16
-Occluded QUIÑONES to LAD by cath 2019
-Continue statin
# Bioprosthetic mitral valve replacement 2013
#Peripheral artery disease with history of right femoral endarterectomy and right iliac stenting 2015
-Right SFA and popliteal SAMPLE CASE PORTER and stenting in 2019
-Continue Statin.
# Status post TURBT on 07/16/2023 recurrent low grade bladder cancer
# History of TIA with left carotid stenosis status post CEA March 03, 2023- statin
# Paroxysmal atrial fibrillation
-Eliquis being held perioperatively, patient has been on Heparin Drip since admission
-Metoprolol continued
#Orthostatic hypotension
-Midodrine continued
#chronic pain
-oxy, morphine continued
# Hypertension-history of chronic hypotension therefore not on any medicines as outpatient
-Toprol XL 12.5 mg daily
# COPD-Stable.
# Chronic hypotension on midodrine chronic dizziness. Patient uses midodrine as needed at home if he feels dizzy. He states that he is well versed in how to manage as he sits down stands up slowly
# Diabetes with diabetic neuropathy
-Glipizide 2.5 mg daily, sliding scale coverage
-Hold metformin
-Continue gabapentin
# Hyperlipidemia-continue statin
# Pulmonary hypertension
# History of prostate cancer with prostatectomy in 2008
# Medical marijuana use
# Chronic left foot drop
# Insomnia - Ambien as outpatient
#History of Hematuria
# Xr-mrdasl-lgct in 2007
# DVT prophylaxis
-eliquis
#DNR (patient confirmed that he is DNR at the time of admission)
Anticipated Discharge: > 48 hours
Subjective/Interval History
-
Date of Service: October 13, 2023
Patient was seen and examined this morning. He reported feeling better, less short of breath, now on room air, still having abdominal pain.
Objective Data
-
Labs:
Laboratory Results
10/13/23 10/13/23
03:20 10:12
WBC 24.0 H
Hgb 12.5 L
Hct 36.4 L
Plt Count 233
APTT 52.1 H 35.7 H
Sodium 137
Potassium 4.0
Chloride 98
Carbon Dioxide 29
BUN 22 H
Creatinine 0.7
Glucose 129 H
Calcium 9.2
Total Bilirubin 1.2
AST 22
ALT 14
Alkaline Phosphatase 106
Vital Signs:
Vital Signs
Temp Pulse Resp BP Pulse Ox
98.6 F 79 18 96/47 94
10/13/23 11:38 10/13/23 11:38 10/13/23 11:38 10/13/23 11:38 10/13/23 11:38
I&O
10/12/23 10/13/23 10/14/23
06:59 06:59 06:59
Intake Total 532 / 532
Output Total 100 / 100
Balance 432 / 432
[2023-10-13 17:01] LABS: Glucose - Point of Care 129 mg/dl (70-99)
[2023-10-13] MEDS: NEURONTIN PO (17:01)
[2023-10-13] MEDS: MAXIPIME 2000 MG IV ×2 (17:09→23:27)
[2023-10-13] MEDS: STERILE WATER FOR INJECTION 10 ML IV ×2 (17:10→23:28)
[2023-10-13] MEDS: KCENTRA 140 UNIT IV (17:17)
[2023-10-13] MEDS: LIPITOR PO (17:50)
[2023-10-13] MEDS: GLUCOTROL XL (EXTENDED RELEASE) PO (17:50)
--- NOTE | 2023-10-13 22:03 | W.IMMPOSTOP ---
Surgical Immed Post Op Note
-
Primary Surgeon: Eyal Kerr MD
Assisting Surgeon: Dionisio Hope MD
Pre-op Diagnosis: Ascending colitis
Post-op Diagnosis: Ascending colitis
Procedure Performed: Exploratory laparotomy, right hemicolectomy, TAP block
Anesthesia Type: General
Specimen / Cultures: Right colectomy
Estimated Blood Loss: 75 mL
Complications: None
Operative Findings: Performed exploratory laparotomy encountered clear ascites; the cecum and proximal ascending colon was inflamed and edematous, but no perforation was noted; the appendix appeared normal; the ileocolic artery had a barely palpable
pulse, but had a dopplerable signal; the middle colic artery had a palpable pulse and good Doppler signal; the remainder of the colon from the distal ascending colon to the rectum appeared healthy; the entirety of the small bowel appeared healthy
and well-vascularized; therefore, proceeded with a right hemicolectomy; the terminal ileum appeared healthy and resected to a good Doppler signal within the mesentery, which was about 20 cm proximal to the ileocecal valve, divided with the purple
load of the SINAN 80; divided the colon at the proximal transverse, just proximal to the right branch of the middle colic; ligated the mesentery close to the bowel using the Voyant impact; controlled one site of ooze with figure of 8 3-0 vicryl;
performed an antiperistaltic [id number] stapled anastomosis with a blue load of the SINAN 80 and the TA 60; performed TAP block and closed with 0 PDS, janet and aquacel; specimen was opened on the back table and showed patchy fibrinous exudate
within the cecum and proximal ascending colon, more clustered around the mesenteric border, no carrie necrosis noted
--- NOTE | 2023-10-13 22:06 | OR.RPT ---
Operative Report
Operative Report
DATE OF OPERATION: 10/12/2023
SURGEON: Eyal Kerr MD
PREOPERATIVE DIAGNOSIS: Ascending colitis
POSTOPERATIVE DIAGNOSIS: Ascending colitis
OPERATION: Exploratory laparotomy, right hemicolectomy, TAP block
ASSISTANTS:
1. Dionisio Hope MD
ANESTHESIA: General
ESTIMATED BLOOD LOSS: 75 mL
FINDINGS:
1. Inflamed and edematous cecum and proximal ascending colon without evidence of perforation or necrosis; ileocolic artery was barely palpable, but had a weak dopplerable signal; middle colic and ALLEN with easily palpable pulse; performed right
hemicolectomy
2. Small bowel was completely evaluated and was healthy without any evidence of ischemia; evaluated mesenteric arcades, which appeared to have a weak pulse within the terminal ileum up to about 20 cm proximal to ileocecal valve; made proximal
transection point proximal to this 20 cm alexander
3. Remainder of bowel appeared well-perfused and performed a [id number]-wppy stapled ileocolic anastomosis
SPECIMENS:
1. Right colectomy
DRAINS: None
COMPLICATIONS: No immediate complications.
INDICATIONS: The patient is a 73-year-old male who presented with 2 days of right-sided abdominal pain and 1 day of shortness of breath. On CT, he was found to have ascending colitis. A trial of nonoperative management with empiric antibiotics,
bowel rest and IV fluids was initiated. However, the following day, his abdominal pain had significantly worsened, as well as his leukocytosis and fever. Therefore, surgery was recommended. The operation was discussed with the patient before and
in detail, including risks and benefits. My plan is to explore the abdomen and identify any compromised bowel or colon. I explained that the etiology at this time was unclear. Ischemic colitis is high on the differential considering his
comorbidities, but infectious and inflammatory bowel remain possibilities. I would resect any nonviable bowel. Risks described included, but are not limited to, bleeding, infection, anastomotic leak (if anastomosis created), ureteral injury, bowel
or solid organ injury, possibility of ostomy creation, risks associated with a stoma if created (ie- skin irritation, ischemia, retraction, prolapse and parastomal hernia) and anesthetic risks. The patient understood and agreed to proceed.
PROCEDURE IN DETAIL: Pre-operatively, the patient was marked by our enterostomal nurses. The patient was taken to the operating room and placed on the operating table in supine position. Sequential compression devices were placed bilaterally.
General anesthesia was then induced and the patient was intubated without complication. The patient was then placed in supine position with both arms secured to the armboards in extended position. Cramer catheter was placed with sterile technique.
The abdomen was then shaved, prepped and draped in a sterile fashion. A time-out was then performed verifying the correct patient, procedure, operative site, positioning, and special equipment. Anesthesia placed an orogastric tube. Patient was on
standing antibiotics, so preincision antibiotics were not given. A marking pen was used to alexander out the midline.
Using a 15 blade scalpel, a supraumbilical midline incision was made and was taken down to the level of the fascia with Bovie electrocautery and hemostasis was assured. The linea alba was divided carefully with Bovie electrocautery. Then 2 Kellys
were used to grasp and elevate the peritoneum, which was sharply divided with Metzenbaum scissors, ensuring no peritoneal organs were in the vicinity. Upon entry, I encountered clear serous ascites. I extended the fascial incision to the length of
the skin incision, taking care to avoid injury to the bladder. A large Jose Maria wound protector was placed. The abdomen was explored. The cecum and proximal ascending colon were significantly inflamed and edematous, but no perforation was noted. No
necrosis was noted. The hepatic flexure and distal colon appeared healthy without any evidence of inflammation or ischemia. The small bowel appeared healthy without any signs of ischemia. A Doppler machine was set up to assist with assessment of
the mesenteric vasculature. The ileocolic artery was identified and was barely palpable. There was a weak dopplerable signal. The middle colic artery and ALLEN was identified and their pulse was easily palpable and had a strong Doppler signal. The
mesenteric arcades of the terminal ileum were exposed and evaluated. Within the most proximal 20 cm of the terminal ileum, the mesenteric pulse was weakly palpable with a weak Doppler signal. Proximal to this portion, however, the mesenteric
pulses were easily palpable with a strong Doppler signal. Based on this assessment, it seemed that the etiology of the severe colitis was most likely ischemic, possibly with a component of chronic ischemia. At this point, the patient was
hemodynamically stable, so I decided to proceed with a right hemicolectomy with primary anastomosis.
The patient was placed in slight Trendelenburg with the right side up. The small bowel was swept towards the pelvis and the left lower quadrant. I mobilized the terminal ileum and right colon from a lateral to medial approach, initially by
incising the white line of Toldt with electrocautery. Then, with a combination of sharp and blunt dissection, the terminal ileum, cecum and right colon were mobilized off of the retroperitoneum, taking care to avoid injury to the retroperitoneal
structures. I continued the mobilization around the hepatic flexure, taking care to avoid injury to the liver, duodenum and stomach. I elevated the omentum and divided the gastrocolic ligament to enter the lesser sac. At this point, the entire
right colon and hepatic flexure were completely mobilized.
Along the terminal ileum, I selected a point just proximal to the 20 cm alexander that I had identified to have good perfusion. I created a hole in the mesentery and divided the small bowel with the purple load of the SINAN 80 stapler. I turned back to
the transverse colon and I identified the right branch of the middle colic, which had a strong palpable pulse. I selected a point on the proximal transverse colon just proximal to the right branch of the middle colic. I created a hole in the
mesentery and divided the colon with a purple load of the SINAN 80 stapler. I divided the mesentery, staying close to the mesenteric border of the colon, using the Perklet impact device. I controlled 1 site of ooze from the mesentery using a 3-0
Vicryl stitch in a [id number] fashion. I passed off the specimen for pathology. I closely evaluated the operative site and hemostasis was assured.
I performed an antiperistaltic nqmo-qe-phmk stapled anastomosis. I laid blue towels to isolate the ends of the bowel and colon from the remainder of the operative field. I excised the antimesenteric corners of the staple lines using a curved Baldwin
scissors and confirmed intraluminal entry. I lined up the antimesenteric portion of the small bowel and colon and created the common channel using a purple load of the SINAN stapler. The common channel was evaluated and hemostasis was assured.
Using Allis clamps, I aligned the common enterotomy and stapled this closed using the TA 60 stapler. The staple line was hemostatic. I placed a crotch stitch using 2-0 Vicryl. I ensured adequate patency of the common channel. I then passed off
the dirty instruments and blue towels and returned the ileocolic anastomosis to the abdomen. I ensured no tension on the anastomosis and no bowel herniating through the mesenteric defect. The bowel was again assessed and appeared well-perfused and
peristalsing. At this point, the specimen was opened at the back table. The mucosa of the cecum and proximal ascending colon showed patchy fibrinous exudate clustered around the mesenteric border, but no obvious necrosis or gangrene. The specimen
was then placed in formalin and sent to pathology.
A total of 30 mL of 0.25% Marcaine with epinephrine mixed with dexamethasone was injected in the transversus abdominis plane bilaterally. The omentum was retracted over the anastomosis. The fascia was closed using 0 PDS, starting at the corners
and meeting in the middle. The subcutaneous tissue was irrigated. The skin was closed with janet. The incision was dressed with an Aquacel.
At this point, the procedure was complete. The patient was awoken and extubated without complication. All needle, sponge and instrument counts were reported as correct. The patient tolerated the procedure well and was transferred to the recovery
room in stable condition.
Of note, Dionisio Hope MD, insurance assistant, was necessary during this procedure for traction, countertraction, and exploratory purposes. I was present for the entire duration of the case.
DICTATED BY: Eyal Kerr MD
[2023-10-13 22:16] LABS: Glucose - Point of Care 172 mg/dl (70-99)
[2023-10-13] MEDS: ROXICODONE 10 MG PO (22:25)
[2023-10-13] MEDS: NORMOSOL-R 1000 IV (22:28)
[2023-10-13 22:33] LABS: Hematocrit 35.8 % (39.0-52.0); Hemoglobin 12.4 g/dL (13.0-18.0); Mean Corp Hgb Conc. 34.6 g/dL (33.0-37.0); Mean Corpuscular Hgb 27.4 pg (27.0-31.0); Mean Corpuscular Volume 79.2 fL (80.0-94.0); Mean Platelet Volume 10.7 fL (7.4-10.4); Platelet Count 270 10^3/uL (130-400); Red Blood Cell Count 4.52 10^6/uL (4.70-6.10); White Blood Cell Count 28.4 10^3/uL (4.8-10.8)
[2023-10-13 22:46] LABS: % Basophils 0.5 % (0-2); % Eosinophils 0.8 % (0-6); % Immature Granulocytes 0.7 % (0-0.5); % Lymphocytes 4.2 % (20.5-51.1); % Monocytes 3.3 % (1.7-9.3); % Neutrophils 90.5 % (42.2-75.2); Absolute Basophils 0.1 10^3/uL (0-0.2); Absolute Eosinophils 0.2 10^3/uL (0-0.7); Absolute Immature Granulocytes 0.2 10^3/uL (0-0.05); Absolute Lymphocytes 1.2 10^3/uL (1.2-3.4); Absolute Monocytes 0.9 10^3/uL (0.1-0.6); Absolute Neutrophils 25.7 10^3/uL (1.4-6.5); Nucleated Red Blood Cells % 0 % (-)
[2023-10-13 22:57] LABS: Blood Urea Nitrogen 23 mg/dl (9-20); Calcium 8.3 mg/dl (8.4-10.2); Carbon Dioxide 26 mmol/L (22-30); Chloride 99 mmol/L (98-107); Estimated Creatinine Clearance 90 ml/min; Glucose 160 mg/dl (70-99); Sodium 133 mmol/L (135-145); eGFR > 60.00
--- NOTE | 2023-10-13 23:06 | W.PN.UPDATE ---
Update Note
Progress Note Update
Patient seen and examined in the PACU s/p R hemicolectomy.
Patient is awake and alert. He complains of abdominal pain s/p surgery.
He denies any chest pain, dyspnea, etc. Oxygenating well on minimal O2 via NC. BP stable (most recent 150 systolic).
Midline abdominal incision with mild strikethrough. Abdomen is soft.
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
Current meds reviewed.
Hold sulfonylurea pending return of adequate PO intake.
Continue other medications.
Post-op care / pain control / etc per Colorectal Surgery.
Monitor respiratory status, hemodynamics, etc.
[2023-10-14] VITALS (11 sets, daily range): BP systolic 94–124; BP diastolic 41–60; PULSE 73; O2SAT 93; BMI 21.7
--- NOTE | 2023-10-14 01:42 | TRANSFER ---
Received patient from PACU via bed at 2300 s/p open right gerard colectomy - abd incision w aquacell, small old drainage noted. Pt drowsy, arousable to verbal. VSS. Assessment as documented. IFC draining clear yellow urine. call patel within reach, bed
in lowest position. Safety maintained.
[2023-10-14] MEDS: TYLENOL 1000 MG PO ×4 (05:00→22:02)
[2023-10-14] MEDS: MS CONTIN (EXTENDED RELEASE) 15 MG PO ×3 (05:27→22:02)
[2023-10-14] MEDS: NORMOSOL-R 1000 IV ×2 (05:30→18:11)
[2023-10-14 07:17] LABS: Glucose - Point of Care 212 mg/dl (70-99)
[2023-10-14 07:17] LABS: Blood Urea Nitrogen 31 mg/dl (9-20); Calcium 8.8 mg/dl (8.4-10.2); Carbon Dioxide 27 mmol/L (22-30); Chloride 96 mmol/L (98-107); Estimated Creatinine Clearance 80 ml/min; Glucose 152 mg/dl (70-99); Potassium 4.9 mmol/L (3.5-5.1); Sodium 137 mmol/L (135-145); eGFR > 60.00
[2023-10-14 07:33] LABS: Hematocrit 38.3 % (39.0-52.0); Hemoglobin 12.8 g/dL (13.0-18.0); Mean Corp Hgb Conc. 33.4 g/dL (33.0-37.0); Mean Corpuscular Hgb 28.3 pg (27.0-31.0); Mean Corpuscular Volume 84.5 fL (80.0-94.0); Platelet Count 234 10^3/uL (130-400); Red Blood Cell Count 4.53 10^6/uL (4.70-6.10); White Blood Cell Count 30.4 10^3/uL (4.8-10.8)
[2023-10-14] MEDS: TOPROL XL PO (08:09)
--- NOTE | 2023-10-14 08:13 | PN.CDI ---
CDI
- -
CDI:
Physician Documentation Request
Admit Date: 10/12/23 17:08
Dear Doctor Funmilayo,
Please review the following and provide your response in the progress notes.
Clinical Indicators:
ED, 10/11
#...CBC shows leukocytosis to 18.5.
#...Regarding his abdominal pain CT abdomen pelvis showed right-sided colitis.
#...Given multiple SIRS criteria (leukocytosis, heart rate greater than 90) and infection:
#Colitis, CHF exacerbation
PN, 10/11
#acute colitis
#...-wbc 18.5
#Presentation with SOB and abdominal pain
#...sob/acute hypoxic respiratory failure likely mild CHF exacerbation
Surgery PN, 10/12
#Tmax of 101 Fahrenheit overnight. White blood cell count up to 24.0.
Laboratory Tests
10/12/23 10/12/23 10/13/23
13:26 20:09 03:20
WBC 18.5 H 20.1 H 24.0 H
10/13/23 10/14/23
22:23 05:44
WBC 28.4 H 30.4 H
Selected Entries
10/12/23
23:10
Temp 101.0 F H
Pulse 101
Please clarify which of the following most accurately describes the status of the patient's infection:
Sepsis POA
Sepsis evolved during admission
Severe Sepsis
- Sepsis with associated acute organ dysfunction, such as renal or respiratory failure
- Documentation should indicate the association between the sepsis
and the organ dysfunction
Localized Infection Only, Without Systemic Illness
- indicate the site/source, such as UTI, pneumonia etc.
Other(please specify)
Sepsis
- Systemic manifestations of infection, with 2 or more SIRS criteria which include:
- Fever >100.4 degrees F or hypothermia < 96.8 degrees F
- Leukocytosis - WBC > 12,000 or leukopenia - WBC < 4,000 or > 10% bands
- Tachycardia > 90 beats per minute
- Tachypnea - RR > 20 breaths per minute or PaCO2 , 32mmHg
Source: Merck Manual 2013
- Indicate the known or suspected organism
- Indicate the known or suspected underlying infection, such as UTI, pneumonia or cellulitis
Severe Sepsis
- Sepsis with associated acute organ dysfunction, such as renal or respiratory failure
- Documentation should indicate the association between the sepsis and the organ dysfunction
Use of terms such as suspected, likely, concern for, or probable (associated with a specific diagnosis that is being evaluated, monitored, or treated as if it exists) are acceptable and can be coded in the inpatient setting, when documented at the
time of discharge.
Thank you,
Paula Archibald RN BSN CCDS
CDI Specialist
please contact via tiger text
Please use your independent medical judgment in providing your response.
[2023-10-14 08:36] LABS: % Basophils 0.3 % (0-2); % Immature Granulocytes 0.9 % (0-0.5); % Lymphocytes 2.1 % (20.5-51.1); % Monocytes 2.3 % (1.7-9.3); % Neutrophils 94.4 % (42.2-75.2); Absolute Basophils 0.1 10^3/uL (0-0.2); Absolute Immature Granulocytes 0.3 10^3/uL (0-0.05); Absolute Lymphocytes 0.6 10^3/uL (1.2-3.4); Absolute Monocytes 0.7 10^3/uL (0.1-0.6); Absolute Neutrophils 28.7 10^3/uL (1.4-6.5); Nucleated Red Blood Cells % 0 % (-)
--- NOTE | 2023-10-14 08:38 | W.PN.CRS1 ---
Today's Communication / Plan
-
As below
Assessment/Plan
-
73-year-old male with PMH of CAD s/p CABG/MVR, CHF, A-fib (on Eliquis), PVD (s/p left first toe amp, left CEA), DM, COPD, HTN, HLD, left foot drop, bladder cancer s/p TURBT, prostate cancer s/p prostatectomy who presents with 2 days of right-sided
abdominal pain associated with 1 day of shortness of breath and nausea/vomiting x 1. This is never happened to him before. He has been constipated since Thursday, denies any diarrhea or blood per rectum. His last colonoscopy was in [address] Silva,
which had a poor prep, 5 mm rectal polyp and internal hemorrhoids. In the ED, WBC 18.5, BNP 3520, UA negative, lactate 2.1, AFVSS, CT showing ascending colitis more likely infectious/inflammatory versus ischemic. He was admitted with IV
antibiotics. However, he developed worsening leukocytosis and fever with worsening abdominal pain, concerning for threatened bowel.
POD 1 ex lap, right hemicolectomy with primary anastomosis and tap block
-no IntraOp issues with hemodynamics; received 1 L fluids, EBL 75; etiology of ascending colitis unclear during surgery but heightened concern for ischemic bowel based on week Doppler signal in the ileocolic pedicle; remainder of bowel without
evidence of ischemia
AFVSS
WBC 30.4 from 24, Hb 12.8 from 12.4, Cr 0.9
�Segmental colitis of the ascending colon; likely ischemic, possible inflammatory versus infectious
� Follow-up pathology
�Appreciate GI; stool studies never sent as patient had been constipated
� Continue n.p.o. with sips; gentle hydration, okay for p.o. meds
� Continue pain control
�Continue long-acting pain regimen
�Continue standing Tylenol and Dilaudid as needed for breakthrough
� Hold heparin drip for 12-24 hours; will discuss with hospitalist and cardiology regarding his risk
�If determined high risk for VTE, would restart heparin drip without bolus
�Continue Cramer, strict I&O's for fluid status
-Held laxis for concern of post-op SOWMYA; ok to restart per cardiology
�Continue cefepime/Flagyl for 4 days postoperatively
� Appreciate cardiology for postoperative care of cardiac comorbidities
� Appreciate hospitalist
Subjective Data
Subjective Data
Date of Service: October 14, 2023
No overnight events.
Pain controlled.
Denies nausea/vomiting. Currently n.p.o.
-flatus -BMs + Cramer
Objective Data
-
Vital Signs
Temp Pulse Resp BP Pulse Ox
98.2 F 74 19 105/57 93
10/14/23 07:41 10/14/23 08:09 10/14/23 07:41 10/14/23 08:09 10/14/23 07:50
Intake & Output
10/13/23 10/14/23 10/15/23
06:59 06:59 06:59
Intake Total 532 / 532 890 / 890
Output Total 100 / 100 975 / 975
Balance 432 / 432 -85 / -85
Intake:
Oral fluids 360 / 360 90 / 90
IV fluids (Total) 700 / 700
normosol 150 / 150
IV piggybacks 172 / 172 100 / 100
Output:
Urine, Cramer 175 / 175
Urine, Voided 100 / 100 800 / 800
Lab Results
10/14/23 05:44
10/14/23 05:44
Physical Exam
-
General: No Acute Distress and AOx3
HEENT: Grossly Normal
Abdomen: Soft, Non Distended, Tender (Appropriately tender near incision; Aquacel in place with some strikethrough), No Guarding and No Rebound
Skin: Warm and Dry
Wound: No Signs of Infection and Dressing in Place
[2023-10-14] MEDS: MAXIPIME 2000 MG IV ×2 (08:55→16:34)
[2023-10-14] MEDS: FLAGYL 500 MG 100 IV ×2 (08:55→16:34)
[2023-10-14] MEDS: NEURONTIN 600 MG PO ×3 (08:55→22:02)
[2023-10-14] MEDS: STERILE WATER FOR INJECTION 10 ML IV ×2 (08:55→16:34)
--- NOTE | 2023-10-14 10:15 | W.PN.HOSP.TC ---
Today's Communication/Plan
-
As per colorectal surgery, hold Heparin Drip for 12-24 hours, unless cardiology determines patient to be a high risk for thrombosis -- appreciate cardiology input
Holding Lasix for now due to soft BP's and to avoid dehydration
Low threshold to transfer to higher level of care (e.g. IMU) post operatively given his significant CAD and history of flash pulmonary edema.
Assessment / Plan
Assessment / Plan
Physical Exam
General: Not in acute distress
HEENT: Normocephalic
Respiratory: Decreased Breath Sounds Bilaterally
Cardiac: S1/S2 and Regular Rhythm
GI: Soft, Non Distended and Positive Bowel Sounds. Appropriate postsurgical tenderness.
Musculoskeletal: No Cyanosis and No Edema
Skin: Warm. Dry.
Neuro: AAOx3. Nonfocal/grossly intact
Assessment/Plan
#Presentation with abdominal pain and shortness of breath
#Segmental colitis of the ascending colon - likely ischemic, but possible inflammatory versus infectious - status post ex lap, right hemicolectomy with primary anastomosis and tap block on 10/13/23
#Concern for Sepsis POA
#Atherosclerotic Superior Mesenteric Artery
#Leukocytosis - worsening
-Stool culture, stool for C. difficile, blood cultures ordered in ER: follow-up results
-Follow-up pathology from surgery
-Received ceftriaxone and Flagyl in ER
-Now continue Cefepime and Flagyl for 4 days postoperatively (through October 17, 2023)
-NPO with sips; gentle hydration, patient can have p.o. medications
-Continue pain control
-GI and colorectal surgery consulted
-Low threshold to transfer to higher level of care (e.g. IMU) post operatively given his significant CAD and history of flash pulmonary edema.
-As per colorectal surgery, hold Heparin Drip for 12-24 hours, unless cardiology determines patient to be a high risk for thrombosis
#Small Right Pleural Effusion on CT Imaging
#Presentation with SOB and abdominal pain
#Concern for acute on chronic HFpEF
#History of Pulmonary Edema
-BNP 3520
-Hold Lasix due to soft blood pressures to avoid dehydration/SOWMYA post-op and given patient's significant history of orthostatic hypotension
-Strict I's & O's and daily weights
-Cardiology consulted, recommendations appreciated
# Anemia of chronic disease
-Hemoglobin stable
-No active bleeding
-Continue to monitor
#Coronary disease with CABG in 2013
-Unsuccessful attempted PCI of LAD MACHINE CEMENTER 03/07/16
-Occluded QUIÑONES to LAD by cath 2019
-Continue statin
#Bioprosthetic mitral valve replacement 2013
#Peripheral artery disease with history of right femoral endarterectomy and right iliac stenting 2015
-Right SFA and popliteal CUSTOM BOOKBINDER and stenting in 2019
-Continue Statin.
# Status post TURBT on 07/16/2023 recurrent low grade bladder cancer
# History of TIA with left carotid stenosis status post CEA March 03, 2023- statin
# Paroxysmal atrial fibrillation
-As per colorectal surgery, hold Heparin Drip for 12-24 hours, unless cardiology determines patient to be a high risk for thrombosis
-Metoprolol continued
#Orthostatic hypotension
-PRN Midodrine continued
#chronic pain
-oxy, morphine continued
# Hypertension-history of chronic hypotension therefore not on any medicines as outpatient
-Toprol XL 12.5 mg daily
# COPD-Stable.
# Chronic hypotension on midodrine chronic dizziness. Patient uses midodrine as needed at home if he feels dizzy. He states that he is well versed in how to manage as he sits down stands up slowly
# Diabetes with diabetic neuropathy
-Hold home Glipizide 2.5 mg daily
-Hold metformin
-Continue gabapentin
-Continue Sliding Scale Insulin coverage
# Hyperlipidemia-continue statin
# Pulmonary hypertension
# History of prostate cancer with prostatectomy in 2008
# Medical marijuana use
# Chronic left foot drop
# Insomnia - Ambien as outpatient
#History of Hematuria
# Cn-awnmsa-zaye in 2007
# DVT prophylaxis
-SCDs
#DNR (patient confirmed that he is DNR at the time of admission)
Anticipated Discharge: > 48 hours
Subjective/Interval History
-
Date of Service: October 14, 2023
Patient was seen and examined. He reported he was hungry and wanted to drink orange juice, but otherwise denied any other significant symptoms or complaints.
Objective Data
-
Labs:
Laboratory Results
10/13/23 10/14/23
22:23 05:44
WBC 28.4 H 30.4 H
Hgb 12.4 L 12.8 L
Hct 35.8 L 38.3 L
Plt Count 270 234
Sodium 133 L 137
Potassium 4.0 4.9
Chloride 99 96 L
Carbon Dioxide 26 27
BUN 23 H 31 H
Creatinine 0.8 0.9
Glucose 160 H 152 H
Calcium 8.3 L 8.8
Vital Signs:
Vital Signs
Temp Pulse Resp BP Pulse Ox
98.2 F 74 19 105/57 93
10/14/23 07:41 10/14/23 08:09 10/14/23 07:41 10/14/23 08:09 10/14/23 07:50
I&O
10/13/23 10/14/23 10/15/23
06:59 06:59 06:59
Intake Total 532 / 532 890 / 890
Output Total 100 / 100 975 / 975
Balance 432 / 432 -85 / -85
[2023-10-14] MEDS: ROXICODONE 10 MG PO ×2 (11:05→22:05)
[2023-10-14 12:01] LABS: Glucose - Point of Care 245 mg/dl (70-99)
--- NOTE | 2023-10-14 12:24 | CM ---
CM following re: discharge planning.
Reviewed pt's chart met with pt.
Pt is POD 1 ex lap, right hemicolectomy with primary anastomosis and tap block, continue supportive care.
Pt reports she lives with spouse and has supportive son. Pt reports he is known to [facility] and prefers [facility] services upon the discharge.
PT and OT to evaluate the pt to determine/confirm a level of care at discharge.
D/C plan; most likely home with [facility] and family support.
CM will follow with discharge plan updates as hospitalization progresses
[2023-10-14] MEDS: NOVOLOG FLEXPEN-LOW RESISTANCE 2 UNITS SC ×2 (12:37→18:11)
--- NOTE | 2023-10-14 13:28 | W.PN.CARDCBS ---
Addendum entered and electronically signed by Mario aDo MD 10/14/23 15:08:
I saw and examined the patient.
The Bank Vault Attendant's note was reviewed and I agree with the note.
Comment:
GEN: No distress, awake, Ox3
HEENT: supple, anicteric, mmm
LUNGS: CTA, no wheezes/rales
CV: Reg, S1/S2, 1/6 syst LSB, no murmur
ABD: soft, BS dec. + tend
EXT: No edema
NEURO: Gross non-focal
SKIN: No rash
Plan:
Overall doing well status post colectomy.
Blood pressure is borderline today so we will hold off on Lasix and likely restart it a.m.
He remains in sinus rhythm. Continue Toprol. Eventually restart Eliquis.
Hemoglobin at 12.8.
If blood pressure remains borderline could place on midodrine in AM.
Addendum entered and electronically signed by Radha Irizarry PA-C 10/14/23 14:01:
holding off on lasix dose today due to hypotension. will plan to resume IV lasix 40mg daily in AM pending BP trends.
Original Note:
Today's Communication / Plan
-
resume IV lasix
resume OAC when ok per surgery
in SR
post op care
Impression / Plan
-
PCP: Dr. Sivakumar Patel
Primary Underground Truck Operator: Dr. Garcia
Impression:
-Presentation with abd pain, N/V
-Acute colitis s/p R colectomy 10/13
-Concern for acute on chronic HFpEF
-CM EF 15-20% by echo Jan 2020 with EF 30% by echo 04/20/19 with h/o recovered CM EF 65% by echo 05/2022, EF 53% by echo 07/20/23
-CAD
s/p unsuccessful attempted PCI of LAD RECEIVING DOCK CHECKER 03/07/16
CABG with occluded QUIÑONES to LAD by cath 2019, but patent SVG seq to Diag-OM-PDA 02/2014
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
-PAD s/p right femoral endarterectomy and right iliac stenting 02/2016
-PAD s/p right SFA and popliteal CHIEF PETROLEUM ENGINEER and stent 10/24/19
-possible TIA with noted L carotid stenosis s/p L CEA 03/03/23
-Paroxysmal Afib
-Chronic Eliquis OAC
-HTN
-Moderate to severe chronic obstructive pulmonary disease
-DM2 with Diabetic neuropathy
-Pulmonary HTN
-Hx prostate cancer s/p surgery 2007
-Medical marijuana use
-former smoker
CATH 2020: Left main and three-vessel [place] coronary total occlusions, patent sequential SVG to diagonal/OM/PDA with collaterals to LAD, and occluded QUIÑONES to LAD, anterolateral wall hypokinesis with mild LV dysfunction
Echo 08/2022: Mild LVH, mid to apical anterior and anteroseptal hypokinesis, EF 50%, bioprosthetic mitral valve with peak/mean gradients 10/6 mmHg, GASTON 1.5 cm�, trace MR, dilated left atrium, aortic sclerosis, normal right heart cardiac
Echo 07/20/2023: EF 53%, mild concentric LVH. Bovine mitral valve replacement well-seated peak/mean gradient 20/10 mmHg with MV area 1.4 cm�, moderate MS with mild to moderate MR. Mild TR with PAP 35 mmHg
Plan:
-Patient presents with abd pain, N/V. found by CTAP to have acute colitis s/p R colectomy 10/13/23
-reports pain adequately controlled
-in SR upon review of tele overnight. continue low dose toprol
-he is receiving IVF@100cc/hr. will resume IV lasix 40mg daily. was on po lasix 40mg BID prior to admission, consider transition to po in next 24-48 hours as able to take po
-also has history of significant orthostatic hypotension so follow volume status closely
-eliquis on hold, resume when ok per surgery
Progress Note - Underground Truck Operator
Subjective
Date of Service: October 14, 2023
reports pain adequately controlled. denies CP, SOB, palpitations
Objective
Labs:
10/14/23 05:44
10/14/23 05:44
Labs
Hgb 12.8 g/dL (13.0-18.0) L 10/14/23 05:44
Hct 38.3 % (39.0-52.0) L 10/14/23 05:44
Plt Count 234 10^3/uL (130-400) 10/14/23 05:44
APTT 35.7 Sec (23.4-35.0) H 10/13/23 10:12
Sodium 137 mmol/L (135-145) 10/14/23 05:44
Potassium 4.9 mmol/L (3.5-5.1) 10/14/23 05:44
BUN 31 mg/dl (9-20) H 10/14/23 05:44
Creatinine 0.9 mg/dL (0.7-1.3) 10/14/23 05:44
Glucose 152 mg/dl (70-99) H 10/14/23 05:44
Vital Signs and I&O:
Vital Signs
Temp Pulse Resp BP Pulse Ox
98.1 F 73 18 94/41 92
10/14/23 11:34 10/14/23 11:34 10/14/23 11:34 10/14/23 11:34 10/14/23 11:34
Vital Signs
Temp Pulse Resp BP Pulse Ox
98.1 F 73 18 94/41 92
10/14/23 11:34 10/14/23 11:34 10/14/23 11:34 10/14/23 11:34 10/14/23 11:34
Intake & Output
10/12/23 10/13/23 10/14/23 10/15/23
07:59 07:59 07:59 07:59
Intake Total 532 / 532 890 / 890
Output Total 100 / 100 975 / 975
Balance 432 / 432 -85 / -85
Physical Exam
Physical Exam
GEN: No distress, awake, alert, oriented x3
HEENT: supple, anicteric, mmm, eomi
LUNGS: CTA B/L, no wheezes/rales
CV: Reg, S1/S2, 2/6 murmur
EXT: No cyanosis, clubbing, edema
NEURO: Gross non-focal
SKIN: Warm, pink, dry. No rash
[2023-10-14] MEDS: DILAUDID 1 MG IV (15:51)
[2023-10-14 17:35] LABS: Glucose - Point of Care 235 mg/dl (70-99)
[2023-10-14] MEDS: LIPITOR 80 MG PO (18:11)
[2023-10-15] MEDS: MAXIPIME 2000 MG IV ×4 (00:29→23:43)
[2023-10-15] MEDS: STERILE WATER FOR INJECTION 10 ML IV ×4 (00:29→23:45)
[2023-10-15] MEDS: FLAGYL 500 MG 100 IV ×4 (00:29→23:44)
[2023-10-15 00:34] LABS: Glucose - Point of Care 187 mg/dl (70-99)
[2023-10-15] MEDS: NOVOLOG FLEXPEN-LOW RESISTANCE 1 UNITS SC ×2 (00:46→06:09)
[2023-10-15 03:07] VITALS: BP 110/52
[2023-10-15] MEDS: NORMOSOL-R 1000 IV (03:35)
[2023-10-15] MEDS: TYLENOL 1000 MG PO ×4 (04:23→21:30)
[2023-10-15] MEDS: LASIX 40 MG IV ×2 (05:26→11:30)
--- NOTE | 2023-10-15 05:40 | PTCARENOTE ---
Around 0515, Pt called for RN. Reports chest heaviness, wheezing, and difficulty breathing. Presents with increased work of breathing, anterior chest auscultated for expiratory wheezes and rhonci (change from previous). Pt reports 'this is what
happens when I got into rapid failure'. MANAGER DIABETES covering house contacted with request of lasix, PCXR, and duonebs (electronic orders received) O2 increased to 6L and IVF stopped. CXR obtained and MANAGER DIABETES covering on way to floor to evaluate.
[2023-10-15] MEDS: DUONEB 3 ML INH ×2 (05:42→16:34)
[2023-10-15 06:00] VITALS: BMI 23.4
[2023-10-15] MEDS: MS CONTIN (EXTENDED RELEASE) 15 MG PO ×3 (06:04→21:30)
[2023-10-15] MEDS: ROXICODONE 10 MG PO ×3 (06:04→17:47)
[2023-10-15 06:10] LABS: Glucose - Point of Care 170 mg/dl (70-99)
--- NOTE | 2023-10-15 06:21 | W.PN.UPDATE ---
Update Note
Progress Note Update
per nursing patient having respiratory distress, wheezing and c/o chest pressure. Rx STAT CXR, 40mg IV lasix, Duoneb. Patient reports feeling better.
[2023-10-15 06:32] LABS: Hematocrit 33.5 % (39.0-52.0); Hemoglobin 11.8 g/dL (13.0-18.0); Mean Corp Hgb Conc. 35.2 g/dL (33.0-37.0); Mean Corpuscular Hgb 27.7 pg (27.0-31.0); Mean Corpuscular Volume 78.6 fL (80.0-94.0); Mean Platelet Volume 10.2 fL (7.4-10.4); Platelet Count 234 10^3/uL (130-400); Red Blood Cell Count 4.26 10^6/uL (4.70-6.10); Red Cell Dist. Width 15.2 % (11.5-14.5); White Blood Cell Count 29.5 10^3/uL (4.8-10.8)
[2023-10-15 06:52] LABS: Blood Urea Nitrogen 36 mg/dl (9-20); Calcium 8.9 mg/dl (8.4-10.2); Carbon Dioxide 24 mmol/L (22-30); Chloride 98 mmol/L (98-107); Estimated Creatinine Clearance 86 ml/min; Glucose 121 mg/dl (70-99); Sodium 136 mmol/L (135-145); eGFR > 60.00
[2023-10-15] MEDS: NORMOSOL-R IV (07:31)
[2023-10-15 07:36] VITALS: BP 122/56
--- NOTE | 2023-10-15 07:40 | PTCARENOTE ---
Pt diuresed 500 mL clear yellow urine after receiving IV lasix. Reports significant improvement of symptoms, breathing appears less labored. BP improved 120/62 HR 78. Report to oncoming shift. Cramer catheter not removed at this time to maintain
accurate I/Os and at pt's request.
--- NOTE | 2023-10-15 08:45 | W.PN.CRS1 ---
Today's Communication / Plan
-
clears
okay to start heparin gtt (no bolus)
Assessment/Plan
-
73-year-old male with PMH of CAD s/p CABG/MVR, CHF, A-fib (on Eliquis), PVD (s/p left first toe amp, left CEA), DM, COPD, HTN, HLD, left foot drop, bladder cancer s/p TURBT, prostate cancer s/p prostatectomy who presents with 2 days of right-sided
abdominal pain associated with 1 day of shortness of breath and nausea/vomiting x 1. This is never happened to him before. He has been constipated since Thursday, denies any diarrhea or blood per rectum. His last colonoscopy was in [address] Silva,
which had a poor prep, 5 mm rectal polyp and internal hemorrhoids. In the ED, WBC 18.5, BNP 3520, UA negative, lactate 2.1, AFVSS, CT showing ascending colitis more likely infectious/inflammatory versus ischemic. He was admitted with IV
antibiotics. However, he developed worsening leukocytosis and fever with worsening abdominal pain, concerning for threatened bowel.
POD 1 ex lap, right hemicolectomy with primary anastomosis and tap block
-no IntraOp issues with hemodynamics; received 1 L fluids, EBL 75; etiology of ascending colitis unclear during surgery but heightened concern for ischemic bowel based on week Doppler signal in the ileocolic pedicle; remainder of bowel without
evidence of ischemia
AFVSS
WBC 29.5 from 30,4 Hb 11.8 from 12.8
�Segmental colitis of the ascending colon; likely ischemic, possible inflammatory versus infectious
� Follow-up pathology
� Advance to a clear liquid diet
� Continue pain control
�Continue long-acting pain regimen
�Continue standing Tylenol and Dilaudid as needed for breakthrough
� Okay to start heparin drip, no bolus
�Continue Cramer, strict I&O's for fluid status
�Continue cefepime/Flagyl for 4 days postoperatively
� Appreciate cardiology for postoperative care of cardiac comorbidities
� Appreciate hospitalist
Subjective Data
Procedure
10/13/2023-Exploratory laparotomy, right hemicolectomy, TAP block
Subjective Data
Date of Service: October 15, 2023
Patient states he had a bad night due to respiratory issues, now resolved. He has some abdominal pain. He has flatus but no bowel movements yet.
Objective Data
-
Vital Signs
Temp Pulse Resp BP Pulse Ox
98.1 F 86 18 122/56 95
10/15/23 07:36 10/15/23 07:36 10/15/23 07:36 10/15/23 07:36 10/15/23 07:36
Intake & Output
10/14/23 10/15/23 10/16/23
06:59 06:59 06:59
Intake Total 890 / 890 2800 / 2800
Output Total 975 / 975 1420 / 1420
Balance -85 / -85 1380 / 1380
Intake:
Oral fluids 90 / 90 600 / 600
IV fluids (Total) 700 / 700 1900 / 1900
normosol 150 / 150
IV piggybacks 100 / 100 300 / 300
Output:
Urine, Cramer 175 / 175 1420 / 1420
Urine, Voided 800 / 800
Lab Results
10/15/23 05:47
10/15/23 05:47
Physical Exam
-
General: No Acute Distress and AOx3
Abdomen: Soft, Non Distended and Tender (around incision)
Skin: Warm and Dry
--- NOTE | 2023-10-15 08:53 | W.PN.CARDCBS ---
Addendum entered and electronically signed by Chris Garcia DO 10/15/23 11:42:
I saw and examined the patient.
The Historic Preservationist's note was reviewed and I agree with the note.
Comment:
Plan:
Cont IV lasix today then transition back to oral lasix 40 mg BID starting 10/15.
Careful with diuresis as he has hx of orthostasis in addtion to hx of HF
Cont IV heparin and evetual transition to Eliquis once ok with surgery.
Remains in sinus with brief AT, cont Toprol.
Cont post op care.
Addendum entered and electronically signed by Radha Irizarry PA-C 10/15/23 10:39:
after discussion with hospitalist and colorectal, plan for initiation of IV heparin. if tolerates, transition back to OP eliquis.
Original Note:
Today's Communication / Plan
-
IV lasix at noon, then po lasix 40mg BID starting 10/15
resume eliquis when ok per surgery
continue post op care
Impression / Plan
-
PCP: Dr. Sivakumar Patel
Primary Technical Support Specialist: Dr. Garcia
Impression:
-Presentation with abd pain, N/V
-Acute colitis s/p R colectomy 10/13
-Concern for acute on chronic HFpEF
-CM EF 15-20% by echo Jan 2020 with EF 30% by echo 04/20/19 with h/o recovered CM EF 65% by echo 05/2022, EF 53% by echo 07/20/23
-CAD
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
CABG with occluded QUIÑONES to LAD by cath 2019, but patent SVG seq to Diag-OM-PDA 02/2014
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
-PAD s/p right femoral endarterectomy and right iliac stenting 02/2016
-PAD s/p right SFA and popliteal ORDNANCE TECHNICIAN and stent 10/24/19
-possible TIA with noted L carotid stenosis s/p L CEA 03/03/23
-Paroxysmal Afib
-Chronic Eliquis OAC
-HTN
-Moderate to severe chronic obstructive pulmonary disease
-DM2 with Diabetic neuropathy
-Pulmonary HTN
-Hx prostate cancer s/p surgery 2007
-Medical marijuana use
-former smoker
CATH 2019: Left main and three-vessel [place] coronary total occlusions, patent sequential SVG to diagonal/OM/PDA with collaterals to LAD, and occluded QUIÑONES to LAD, anterolateral wall hypokinesis with mild LV dysfunction
Echo 08/2022: Mild LVH, mid to apical anterior and anteroseptal hypokinesis, EF 50%, bioprosthetic mitral valve with peak/mean gradients 10/6 mmHg, GASTON 1.5 cm�, trace MR, dilated left atrium, aortic sclerosis, normal right heart cardiac
Echo 07/20/2023: EF 53%, mild concentric LVH. Bovine mitral valve replacement well-seated peak/mean gradient 20/10 mmHg with MV area 1.4 cm�, moderate MS with mild to moderate MR. Mild TR with PAP 35 mmHg
Plan:
-Patient presents with abd pain, N/V. found by CTAP to have acute colitis s/p R colectomy 10/13/23
-reports pain adequately controlled
-received IVF post surgically. has history of acute pulm edema however also with significant orthostatic hypotension. was hypotensive yesterday so lasix was not resumed, however was ordered for 8AM today. around 5AM was noted to be SOB and wheezing.
IVF stopped and received 40mg IV lasix urgently with duoneb. feels much improved at present. will plan to give 40mg IV lasix at noon and then place on po lasix 40mg BID starting in AM.
-on clear liquids
-remains in SR with 1 brief run of AT noted. continue toprol
-eliquis on hold, resume when ok per surgery
-d/w nursing
Progress Note - Technical Support Specialist
Subjective
Date of Service: October 15, 2023
Reports breathing much improved. Denies chest pain, palpitations
Objective
Labs:
10/15/23 05:47
10/15/23 05:47
Labs
Hgb 11.8 g/dL (13.0-18.0) L 10/15/23 05:47
Hct 33.5 % (39.0-52.0) L 10/15/23 05:47
Plt Count 234 10^3/uL (130-400) 10/15/23 05:47
APTT 35.7 Sec (23.4-35.0) H 10/13/23 10:12
Sodium 136 mmol/L (135-145) 10/15/23 05:47
Potassium 4.0 mmol/L (3.5-5.1) 10/15/23 05:47
BUN 36 mg/dl (9-20) H 10/15/23 05:47
Creatinine 0.9 mg/dL (0.7-1.3) 10/15/23 05:47
Glucose 121 mg/dl (70-99) H 10/15/23 05:47
Vital Signs and I&O:
Vital Signs
Temp Pulse Resp BP Pulse Ox
98.1 F 86 18 122/56 95
10/15/23 07:36 10/15/23 07:36 10/15/23 07:36 10/15/23 07:36 10/15/23 07:36
Vital Signs
Temp Pulse Resp BP Pulse Ox
98.1 F 86 18 122/56 95
10/15/23 07:36 10/15/23 07:36 10/15/23 07:36 10/15/23 07:36 10/15/23 07:36
Intake & Output
10/13/23 10/14/23 10/15/23 10/16/23
07:59 07:59 07:59 07:59
Intake Total 532 / 532 890 / 890 2800 / 2800
Output Total 100 / 100 975 / 975 1420 / 1420
Balance 432 / 432 -85 / -85 1380 / 1380
Physical Exam
Physical Exam
GEN: No distress, awake, alert, oriented x3
HEENT: supple, anicteric, mmm, eomi
LUNGS: Crackles RLB, no wheezes
CV: Reg, S1/S2, 2/6 murmur
EXT: No cyanosis, clubbing, edema
NEURO: Gross non-focal
SKIN: Warm, pink, dry. No rash
[2023-10-15] MEDS: NEURONTIN 600 MG PO ×3 (09:13→21:30)
[2023-10-15] MEDS: TOPROL XL 12.5 MG PO (09:14)
--- NOTE | 2023-10-15 10:14 | W.PN.HOSP.TC ---
Today's Communication/Plan
-
Restart anticoagulation in the form of Heparin Drip. Will change to Eliquis based on surgery team's input.
IV Lasix today
Assessment / Plan
Assessment / Plan
Physical Exam
General: Not in acute distress
HEENT: Normocephalic
Respiratory: Decreased Breath Sounds Bilaterally
Cardiac: S1/S2 and Regular Rhythm
GI: Soft, Non Distended and Positive Bowel Sounds. Appropriate postsurgical tenderness.
Musculoskeletal: No Cyanosis and No Edema
Skin: Warm. Dry.
Neuro: AAOx3. Nonfocal/grossly intact
Assessment/Plan
#Presentation with abdominal pain and shortness of breath
#Segmental colitis of the ascending colon - likely ischemic, but possible inflammatory versus infectious - status post ex lap, right hemicolectomy with primary anastomosis and tap block on 10/13/23
#Concern for Sepsis POA
#Atherosclerotic Superior Mesenteric Artery
#Leukocytosis - worsened during this hospitalization
-Stool culture, stool for C. difficile, blood cultures ordered in ER: follow-up results
-Follow-up pathology from surgery
-Received ceftriaxone and Flagyl in ER
-Now continue Cefepime and Flagyl for 4 days postoperatively (through October 17, 2023)
-Okay to start clear liquids diet
-Continue pain control
-GI and colorectal surgery consulted
-Low threshold to transfer to higher level of care (e.g. IMU) post operatively given his significant CAD and history of flash pulmonary edema.
-As per colorectal surgery, okay to resume Heparin Drip without a bolus: will check whether we can restart home Eliquis at this time
#Small Right Pleural Effusion on CT Imaging
#Presentation with SOB and abdominal pain
#Concern for acute on chronic HFpEF
#History of Pulmonary Edema
#Pulmonary Edema on October 15, 2023
-BNP 3520
-IV Lasix today, transition to PO Lasix tomorrow
-Strict I's & O's and daily weights
-Cardiology consulted, recommendations appreciated
# Anemia of chronic disease
-Hemoglobin stable
-No active bleeding
-Continue to monitor
#Coronary disease with CABG in 2013
-Unsuccessful attempted PCI of LAD SHRINK PIT SUPERVISOR 03/07/16
-Occluded QUIÑONES to LAD by cath 2019
-Continue statin
#Bioprosthetic mitral valve replacement 2013
#Peripheral artery disease with history of right femoral endarterectomy and right iliac stenting 2015
-Right SFA and popliteal POTASH FLAKER and stenting in 2019
-Continue Statin.
# Status post TURBT on 07/16/2023 recurrent low grade bladder cancer
# History of TIA with left carotid stenosis status post CEA March 03, 2023- statin
# Paroxysmal atrial fibrillation
-Resume Heparin Drip with consideration for restarting Eliquis
-Metoprolol continued
#Orthostatic hypotension
-PRN Midodrine continued
#chronic pain
-oxy, morphine continued
# Hypertension-history of chronic hypotension therefore not on any medicines as outpatient
-Toprol XL 12.5 mg daily
# COPD-Stable.
# Chronic hypotension on midodrine chronic dizziness. Patient uses midodrine as needed at home if he feels dizzy. He states that he is well versed in how to manage as he sits down stands up slowly
# Diabetes with diabetic neuropathy
-Hold home Glipizide 2.5 mg daily
-Hold metformin
-Continue gabapentin
-Continue Sliding Scale Insulin coverage
# Hyperlipidemia-continue statin
# Pulmonary hypertension
# History of prostate cancer with prostatectomy in 2008
# Medical marijuana use
# Chronic left foot drop
# Insomnia - Ambien as outpatient
#History of Hematuria
# Ul-[id number] in 2007
# DVT prophylaxis
-SCDs
#DNR (patient confirmed that he is DNR at the time of admission)
Anticipated Discharge: > 48 hours
Subjective/Interval History
-
Date of Service: October 15, 2023
Patient was seen and examined. Overnight he was short of breath, found to have pulmonary edema, given Lasix and felt better.
Objective Data
-
Labs:
Laboratory Results
10/15/23
05:47
WBC 29.5 H
Hgb 11.8 L
Hct 33.5 L
Plt Count 234
Sodium 136
Potassium 4.0
Chloride 98
Carbon Dioxide 24
BUN 36 H
Creatinine 0.9
Glucose 121 H
Calcium 8.9
Vital Signs:
Vital Signs
Temp Pulse Resp BP Pulse Ox
98.1 F 86 18 122/56 95
10/15/23 07:36 10/15/23 07:36 10/15/23 07:36 10/15/23 09:14 10/15/23 07:36
I&O
10/14/23 10/15/23 10/16/23
06:59 06:59 06:59
Intake Total 890 / 890 2800 / 2800
Output Total 975 / 975 1420 / 1420
Balance -85 / -85 1380 / 1380
[2023-10-15 11:09] VITALS: BP 109/53
[2023-10-15] MEDS: HEPARIN 25000 UNITS/250 ML IV (11:22)
[2023-10-15 12:03] LABS: Glucose - Point of Care 209 mg/dl (70-99)
--- NOTE | 2023-10-15 12:03 | PN.CDI ---
CDI
- -
CDI:
Physician Documentation Request
Admit Date: 10/12/23 17:08
Dear Doctor Funmilayo,
Please review the following and provide your response in the progress notes.
Clinical Indicators:
CXR, 10/14
IMPRESSION:
#Mild interstitial pulmonary edema with small right pleural effusion.
PN, 10/14
#Concern for acute on chronic HFpEF
#History of Pulmonary Edema
#Pulmonary Edema on October 15, 2023
-BNP 3520
-IV Lasix today, transition to PO Lasix tomorrow
Please clarify the acuity and etiology of the pulmonary edema:
Acute non-cardiac pulmonary edema due to fluid overload
Acute non-cardiac pulmonary edema due to other cause (please specify)
Acute pulmonary edema due to acute on chronic HFpEF
Other(please clarify)
Use of terms such as suspected, likely, concern for, or probable (associated with a specific diagnosis that is being evaluated, monitored, or treated as if it exists) are acceptable and can be coded in the inpatient setting, when documented at the
time of discharge.
Thank you,
Paula Archibald RN BSN CCDS
CDI Specialist
please contact via tiger text
Please use your independent medical judgment in providing your response.
--- NOTE | 2023-10-15 12:08 | PN.CDI ---
CDI
- -
CDI:
Physician Documentation Request
Admit Date: 10/12/23 17:08
Dear Doctor Funmilayo,
Please review the following and provide your response in the progress notes.
Clinical Indicators:
ED, 10/11
#Chief Complaint: Breathing Problem
H+P, 10/11
#Respiratory: Reports Cough and Trouble Breathing
#sob/acute hypoxic respiratory failure likely mild CHF exacerbation
#-BNP 3520
#-patient requiring 2l in ER
PN, 10/11
#Presentation with SOB and abdominal pain
#sob/acute hypoxic respiratory failure likely mild CHF exacerbation
PN, 10/14
#...per nursing patient having respiratory distress, wheezing and c/o chest pressure.
#Rx STAT CXR, 40mg IV lasix, Duoneb.
10/15/23 05:40 (created 10/15/23 07:35) - Patient Care Note
#...Reports chest heaviness, wheezing, and difficulty breathing.
#Presents with increased work of breathing, anterior chest auscultated
#...for expiratory wheezes and rhonci (change from previous).
#Pt reports 'this is what happens when I got into rapid failure'.
#...O2 increased to 6L and IVF stopped.
Recognized standard criteria for respiratory failure includes:
(Source: [facility] Jan 2013)
Symptoms:
�Tachypnea, SOB, dyspnea
�Pallor or cyanosis
�Anxiety or restlessness
�Use of accessory muscles
�Retractions (grunting in newborns)
�Unable to speak in complete sentences
Supplemental O2 requirement of 40% (5LPM) or more Intubation is not required
Based on the above information and the recognized standard for respiratory failure please verify this diagnoses is still accurate and reflective of the patient�s condition to ensure quality of the medical record.
Please clarify in the Progress Notes:
Respiratory failure is/was present and is a clinical diagnosis based on (please include this additional support in the medical record)
Acute Respiratory failure evolved during admission
Acute Respiratory Distress
After study respiratory failure has been ruled out
Other(please specify)
Use of terms such as suspected, likely, concern for, or probable (associated with a specific diagnosis that is being evaluated, monitored, or treated as if it exists) are acceptable and can be coded in the inpatient setting, when documented at the
time of discharge.
Thank you,
Paula Archibald RN BSN CCDS
CDI Specialist
please contact via tiger text
Please use your independent medical judgment in providing your response.
[2023-10-15] MEDS: NOVOLOG FLEXPEN-LOW RESISTANCE 2 UNITS SC (14:04)
[2023-10-15 15:28] VITALS: BP 116/55
--- NOTE | 2023-10-15 16:19 | W.PN.UPDATE ---
Update Note
Progress Note Update
CTSP as complaining of wheezing, congestion, dizziness, hot/cold feelings. has good urine output in noyola bag. no wheezing on exam. on supp O2 with 96% sat. will try duoneb x1 and if not improved, 20mg IV lasix ordered for 5PM. will continue to
follow. d/w nursing
[2023-10-15 16:43] LABS: Glucose - Point of Care 158 mg/dl (70-99)
[2023-10-15] MEDS: NOVOLOG FLEXPEN-LOW RESISTANCE 300 UNITS SC (17:39)
[2023-10-15] MEDS: LIPITOR 80 MG PO (17:47)
[2023-10-15 18:54] LABS: APTT 35.5 Sec (23.4-35.0)
[2023-10-15 19:19] VITALS: BP 103/56
[2023-10-15 23:02] VITALS: BP 114/61
[2023-10-16] VITALS (7 sets, daily range): BP systolic 96–144; BP diastolic 51–70; PULSE 84; O2SAT 96; BMI 23.0; BMI 21.7
[2023-10-16 00:21] LABS: Glucose - Point of Care 142 mg/dl (70-99)
[2023-10-16] MEDS: NOVOLOG FLEXPEN-LOW RESISTANCE SC ×2 (00:38→06:21)
[2023-10-16 01:50] LABS: APTT 109.7 Sec (23.4-35.0)
[2023-10-16] MEDS: TYLENOL 1000 MG PO ×4 (04:11→21:48)
[2023-10-16] MEDS: ZOFRAN 4 MG IV (05:41)
[2023-10-16 06:13] LABS: Glucose - Point of Care 140 mg/dl (70-99)
[2023-10-16] MEDS: MS CONTIN (EXTENDED RELEASE) 15 MG PO ×3 (06:22→21:48)
[2023-10-16 07:46] LABS: Hematocrit 28.5 % (39.0-52.0); Hemoglobin 9.5 g/dL (13.0-18.0); Mean Corp Hgb Conc. 33.3 g/dL (33.0-37.0); Mean Corpuscular Hgb 27.2 pg (27.0-31.0); Mean Corpuscular Volume 81.7 fL (80.0-94.0); Mean Platelet Volume 11.1 fL (7.4-10.4); Platelet Count 188 10^3/uL (130-400); Red Blood Cell Count 3.49 10^6/uL (4.70-6.10); White Blood Cell Count 16.1 10^3/uL (4.8-10.8)
[2023-10-16 07:52] LABS: APTT 120.9 Sec (23.4-35.0)
--- NOTE | 2023-10-16 08:21 | CM ---
patient sp hemicolectomy,cont iv cefepime,iv flagyl,sating 98% on 2 liters nc o2,duonebs,started heparin gtt-will change to eliquis,iv lasix given,wbc's improving.[facility]
--- NOTE | 2023-10-16 08:59 | W.PN.CARDCBS ---
Addendum entered and electronically signed by Mario Dao MD 10/16/23 10:40:
I saw and examined the patient.
The Court Assistant's note was reviewed and I agree with the note.
Comment:
GEN: No distress, awake, Ox3
HEENT: supple, anicteric, mmm
LUNGS: scatt rhonchi
CV: Reg, S1/S2, 1/6 syst LSB, no murmur
ABD: soft, BS+, incisional tend
EXT: No edema
NEURO: Gross non-focal
SKIN: No rash
Plan:
Repeat weight is 168. Continue Lasix 40 mg p.o. twice daily. Wean oxygen.
Blood pressure is overall stable. Continue IV heparin for now. Hopefully resume Eliquis over next 24 hours.
Continue Toprol. If blood pressure is low can add midodrine.
Continue postop care.
Original Note:
Today's Communication / Plan
-
po lasix 40mg BID
wean supp O2
continue post op care
transition IV hep to eliquis when ok per surgery
Impression / Plan
-
PCP: Dr. Sivakumar Patel
Primary Online Content Coordinator: Dr. Garcia
Impression:
-Presentation with abd pain, N/V
-Acute colitis s/p R colectomy 10/13
-Concern for acute on chronic HFpEF
-CM EF 15-20% by echo Jan 2020 with EF 30% by echo 04/20/19 with h/o recovered CM EF 65% by echo 05/2022, EF 53% by echo 07/20/23
-CAD
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
CABG with occluded QUIÑONES to LAD by cath 2019, but patent SVG seq to Diag-OM-PDA 02/2014
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
-PAD s/p right femoral endarterectomy and right iliac stenting 02/2016
-PAD s/p right SFA and popliteal FRUIT COORDINATOR and stent 10/24/19
-possible TIA with noted L carotid stenosis s/p L CEA 03/03/23
-Paroxysmal Afib
-Chronic Eliquis OAC
-HTN
-Moderate to severe chronic obstructive pulmonary disease
-DM2 with Diabetic neuropathy
-Pulmonary HTN
-Hx prostate cancer s/p surgery 2007
-Medical marijuana use
-former smoker
CATH 2019: Left main and three-vessel habematolel coronary total occlusions, patent sequential SVG to diagonal/OM/PDA with collaterals to LAD, and occluded QUIÑONES to LAD, anterolateral wall hypokinesis with mild LV dysfunction
Echo 08/2022: Mild LVH, mid to apical anterior and anteroseptal hypokinesis, EF 50%, bioprosthetic mitral valve with peak/mean gradients 10/6 mmHg, GASTON 1.5 cm�, trace MR, dilated left atrium, aortic sclerosis, normal right heart cardiac
Echo 07/20/2023: EF 53%, mild concentric LVH. Bovine mitral valve replacement well-seated peak/mean gradient 20/10 mmHg with MV area 1.4 cm�, moderate MS with mild to moderate MR. Mild TR with PAP 35 mmHg
Plan:
-Patient presents with abd pain, N/V. found by CTAP to have acute colitis s/p R colectomy 10/13/23
-with abd pain and nausea overnight
-received IVF post surgically. has history of acute pulm edema however also with significant orthostatic hypotension. had some respiratory distress AM of 10/14 improved with duoneb and IV lasix. IV diuresis was continued yesterday. weight
significantly improved today upon repeating by standing scale and patient states breathing is stable. will place back on po lasix 40mg BID and follow
-on clear liquids, advance per surgery
-remains in SR with 2 brief runs of AT noted. continue toprol
-currently on IV heparin. transition back to eliquis when ok per surgery
-d/w nursing
Progress Note - Online Content Coordinator
Subjective
Date of Service: October 16, 2023
Reports breathing is good this morning. Complains of abdominal discomfort and nausea
Objective
Labs:
10/16/23 07:28
Labs
Hgb 9.5 g/dL (13.0-18.0) L 10/16/23 07:28
Hct 28.5 % (39.0-52.0) L 10/16/23 07:28
Plt Count 188 10^3/uL (130-400) 10/16/23 07:28
APTT 120.9 Sec (23.4-35.0) H 10/16/23 07:28
Sodium 136 mmol/L (135-145) 10/15/23 05:47
Potassium 4.0 mmol/L (3.5-5.1) 10/15/23 05:47
BUN 36 mg/dl (9-20) H 10/15/23 05:47
Creatinine 0.9 mg/dL (0.7-1.3) 10/15/23 05:47
Glucose 121 mg/dl (70-99) H 10/15/23 05:47
Vital Signs and I&O:
Vital Signs
Temp Pulse Resp BP Pulse Ox
97.5 F 79 14 134/70 98
10/16/23 07:11 10/16/23 07:11 10/16/23 07:11 10/16/23 07:11 10/16/23 07:11
Vital Signs
Temp Pulse Resp BP Pulse Ox
97.5 F 79 14 134/70 98
10/16/23 07:11 10/16/23 07:11 10/16/23 07:11 10/16/23 07:11 10/16/23 07:11
Intake & Output
10/14/23 10/15/23 10/16/23 10/17/23
07:59 07:59 07:59 07:59
Intake Total 890 / 890 2800 / 2800 1380 / 1380
Output Total 975 / 975 1420 / 1420 1700 / 1700
Balance -85 / -85 1380 / 1380 -320 / -320
Physical Exam
Physical Exam
GEN: No distress, awake, alert, oriented x3
HEENT: supple, anicteric, mmm, eomi
LUNGS: CTA B/L, no wheezes
CV: Reg, S1/S2, 2/6 murmur
EXT: No cyanosis, clubbing, edema
NEURO: Gross non-focal
SKIN: Warm, pink, dry. No rash
[2023-10-16] MEDS: LASIX 40 MG PO ×2 (09:05→16:52)
[2023-10-16] MEDS: TOPROL XL 12.5 MG PO (09:05)
[2023-10-16] MEDS: NEURONTIN 600 MG PO ×3 (09:05→21:48)
[2023-10-16] MEDS: MAXIPIME 2000 MG IV ×2 (09:06→16:47)
[2023-10-16] MEDS: FLAGYL 500 MG 100 IV ×2 (09:06→16:47)
[2023-10-16] MEDS: STERILE WATER FOR INJECTION 10 ML IV ×2 (09:07→16:53)
[2023-10-16] MEDS: ROXICODONE 10 MG PO (09:09)
--- NOTE | 2023-10-16 09:37 | CM ---
Patient seen at bedside. Patient reports he feels terrible. [facility] to follow patient as they were seeing patient prior to admission and patient currently has O2 on. Patient does not have home O2. CM will continue to follow for discharge planning needs.
Plan; home with VN; [facility] JOSE and accepted. watch for home O2 needs.
[2023-10-16] MEDS: HEPARIN 25000 UNITS/250 ML IV (09:52)
--- NOTE | 2023-10-16 10:09 | W.PN.CRS1 ---
Today's Communication / Plan
-
Okay to resume Eliquis tonight
Continue on clears today given nausea
Continue antibiotics
Assessment/Plan
-
73-year-old male with PMH of CAD s/p CABG/MVR, CHF, A-fib (on Eliquis), PVD (s/p left first toe amp, left CEA), DM, COPD, HTN, HLD, left foot drop, bladder cancer s/p TURBT, prostate cancer s/p prostatectomy who presents with 2 days of right-sided
abdominal pain associated with 1 day of shortness of breath and nausea/vomiting x 1. This is never happened to him before. He has been constipated since Thursday, denies any diarrhea or blood per rectum. His last colonoscopy was in [address] Silva,
which had a poor prep, 5 mm rectal polyp and internal hemorrhoids. In the ED, WBC 18.5, BNP 3520, UA negative, lactate 2.1, AFVSS, CT showing ascending colitis more likely infectious/inflammatory versus ischemic. He was admitted with IV
antibiotics. However, he developed worsening leukocytosis and fever with worsening abdominal pain, concerning for threatened bowel.
POD 2 ex lap, right hemicolectomy with primary anastomosis and tap block
-no IntraOp issues with hemodynamics; received 1 L fluids, EBL 75; etiology of ascending colitis unclear during surgery but heightened concern for ischemic bowel based on week Doppler signal in the ileocolic pedicle; remainder of bowel without
evidence of ischemia
AFVSS
WBC 16.1 from 29.5, Hgb 95 from 11.8
�Segmental colitis of the ascending colon; likely ischemic, possible inflammatory versus infectious
� Follow-up pathology
�Continue clear liquid diet today given nausea
� Continue pain control
�Continue long-acting pain regimen
�Continue standing Tylenol and Dilaudid as needed for breakthrough
�Currently on a heparin drip, okay to restart Eliquis tonight
�Cramer per primary team, okay to remove from our perspective
�Continue cefepime/Flagyl for 4 days postoperatively
� Appreciate cardiology for postoperative care of cardiac comorbidities
� Appreciate hospitalist
Subjective Data
Procedure
10/13/2023-Exploratory laparotomy, right hemicolectomy, TAP block
Subjective Data
Date of Service: October 16, 2023
Patient states that he had some nausea earlier this morning and over the past hour. He still complains of abdominal pain. He has no nausea or vomiting.
Objective Data
-
Vital Signs
Temp Pulse Resp BP Pulse Ox
97.5 F 79 14 134/70 98
10/16/23 07:11 10/16/23 07:11 10/16/23 07:11 10/16/23 07:11 10/16/23 07:11
Intake & Output
10/15/23 10/16/23 10/17/23
06:59 06:59 06:59
Intake Total 2800 / 2800 1380 / 1380
Output Total 1420 / 1420 1700 / 1700
Balance 1380 / 1380 -320 / -320
Intake:
Oral fluids 600 / 600 1080 / 1080
IV fluids (Total) 1900 / 1900
IV piggybacks 300 / 300 300 / 300
Output:
Urine, Cramer 1420 / 1420 550 / 550
Urine, Voided 1150 / 1150
Lab Results
10/16/23 07:28
Physical Exam
-
General: No Acute Distress and AOx3
Abdomen: Soft, Non Distended and Tender (Around incision)
Skin: Warm and Pallor
Wound: Dressing in Place
[2023-10-16 10:13] LABS: Blood Urea Nitrogen 35 mg/dl (9-20); Calcium 8.7 mg/dl (8.4-10.2); Carbon Dioxide 29 mmol/L (22-30); Chloride 101 mmol/L (98-107); Estimated Creatinine Clearance 90 ml/min; Glucose 137 mg/dl (70-99); Potassium 4.4 mmol/L (3.5-5.1); Sodium 137 mmol/L (135-145); eGFR > 60.00
[2023-10-16 12:07] LABS: Glucose - Point of Care 150 mg/dl (70-99)
[2023-10-16] MEDS: NOVOLOG FLEXPEN-LOW RESISTANCE 1 UNITS SC ×2 (12:29→18:03)
[2023-10-16 14:20] LABS: APTT 157.8 Sec (23.4-35.0)
[2023-10-16] MEDS: DILAUDID 0.5 MG IV (14:24)
--- NOTE | 2023-10-16 16:24 | W.PN.HOSP.TC ---
Today's Communication/Plan
-
Restart Eliquis tonight and stop Heparin Drip once Eliquis restarted
Continue clears, appreciate surgery
Assessment / Plan
Assessment / Plan
Physical Exam
General: Not in acute distress
HEENT: Normocephalic
Respiratory: Decreased Breath Sounds Bilaterally
Cardiac: S1/S2 and Regular Rhythm
GI: Soft, Non Distended and Positive Bowel Sounds. Appropriate postsurgical tenderness.
Musculoskeletal: No Cyanosis and No Edema
Skin: Warm. Dry.
Neuro: AAOx3. Nonfocal/grossly intact
Assessment/Plan
#Presentation with abdominal pain and shortness of breath
#Segmental colitis of the ascending colon - likely ischemic, but possible inflammatory versus infectious - status post ex lap, right hemicolectomy with primary anastomosis and tap block on 10/13/23
#Concern for Sepsis POA
#Atherosclerotic Superior Mesenteric Artery
#Leukocytosis - worsened during this hospitalization but then improving now
-Stool culture, stool for C. difficile, blood cultures ordered in ER: follow-up results
-Follow-up pathology from surgery
-Received ceftriaxone and Flagyl in ER
-Now continue Cefepime and Flagyl for 4 days postoperatively (through October 17, 2023)
-Okay to continue clear liquids diet
-Continue pain control
-GI and colorectal surgery consulted
-Low threshold to transfer to higher level of care (e.g. IMU) post operatively given his significant CAD and history of flash pulmonary edema.
-As per colorectal surgery, okay to resume Heparin Drip without a bolus: will check whether we can restart home Eliquis at this time
#Small Right Pleural Effusion on CT Imaging
#Presentation with SOB and abdominal pain
#Concern for acute on chronic HFpEF
#History of Pulmonary Edema
#Acute pulmonary edema due to acute on chronic HFpEF - Pulmonary Edema on October 15, 2023
#Acute Respiratory Distress Due to Pulmonary Edema - RESOLVED
-BNP 3520
-Status post IV Lasix
-Now continue PO Lasix 40 mg PO BID
-Continue Toprol XL
-Strict I's & O's and daily weights
-Cardiology consulted, recommendations appreciated
# Anemia of chronic disease
-No active bleeding
-Continue to monitor
#Coronary disease with CABG in 2013
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
-Occluded QUIÑONES to LAD by cath 2019
-Continue statin
#Bioprosthetic mitral valve replacement 2013
#Peripheral artery disease with history of right femoral endarterectomy and right iliac stenting 2015
-Right SFA and popliteal ADJUNCT PSYCHOLOGY FACULTY MEMBER and stenting in 2019
-Continue Statin.
# Status post TURBT on 07/16/2023 recurrent low grade bladder cancer
# History of TIA with left carotid stenosis status post CEA March 03, 2023- statin
# Paroxysmal atrial fibrillation
-Continue Heparin Drip but restart Eliquis tonight
-Metoprolol continued
#Orthostatic hypotension
-PRN Midodrine continued
#chronic pain
-oxy, morphine continued
# Hypertension-history of chronic hypotension therefore not on any medicines as outpatient
-Toprol XL 12.5 mg daily
# COPD-Stable.
# Chronic hypotension on midodrine chronic dizziness. Patient uses midodrine as needed at home if he feels dizzy. He states that he is well versed in how to manage as he sits down stands up slowly
# Diabetes with diabetic neuropathy
-Hold home Glipizide 2.5 mg daily
-Hold metformin
-Continue gabapentin
-Continue Sliding Scale Insulin coverage
# Hyperlipidemia-continue statin
# Pulmonary hypertension
# History of prostate cancer with prostatectomy in 2008
# Medical marijuana use
# Chronic left foot drop
# Insomnia - Ambien as outpatient
#History of Hematuria
# [id number] in 2007
#DVT prophylaxis: Eliquis
#DNR (patient confirmed that he is DNR at the time of admission)
Anticipated Discharge: > 48 hours
Subjective/Interval History
-
Date of Service: October 16, 2023
Patient was seen and examined. He denied any new significant symptoms or complaints.
Objective Data
-
Labs:
Laboratory Results
10/16/23 10/16/23 10/16/23
07:28 08:57 13:58
WBC 16.1 H
Hgb 9.5 L
Hct 28.5 L
Plt Count 188
APTT 120.9 H 157.8 H*
Sodium 137
Potassium 4.4
Chloride 101
Carbon Dioxide 29
BUN 35 H
Creatinine 0.8
Glucose 137 H
Calcium 8.7
10/16/23
21:30
WBC
Hgb
Hct
Plt Count
APTT Pending
Sodium
Potassium
Chloride
Carbon Dioxide
BUN
Creatinine
Glucose
Calcium
Vital Signs:
Vital Signs
Temp Pulse Resp BP Pulse Ox
98.6 F 83 14 122/64 98
10/16/23 15:20 10/16/23 15:20 10/16/23 15:20 10/16/23 15:20 10/16/23 15:20
I&O
10/15/23 10/16/23 10/17/23
06:59 06:59 06:59
Intake Total 2800 / 2800 1380 / 1380
Output Total 1420 / 1420 1700 / 1700
Balance 1380 / 1380 -320 / -320
[2023-10-16 17:54] LABS: Glucose - Point of Care 156 mg/dl (70-99)
[2023-10-16] MEDS: LIPITOR 80 MG PO (18:03)
[2023-10-16 18:26] LABS: % Basophils 0.5 % (0-2); % Eosinophils 4.1 % (0-6); % Immature Granulocytes 0.5 % (0-0.5); % Lymphocytes 8.4 % (20.5-51.1); % Monocytes 6.8 % (1.7-9.3); % Neutrophils 79.7 % (42.2-75.2); Absolute Basophils 0.1 10^3/uL (0-0.2); Absolute Eosinophils 0.6 10^3/uL (0-0.7); Absolute Immature Granulocytes 0.1 10^3/uL (0-0.05); Absolute Lymphocytes 1.2 10^3/uL (1.2-3.4); Absolute Neutrophils 11.7 10^3/uL (1.4-6.5); Hemoglobin 9.9 g/dL (13.0-18.0); Mean Corp Hgb Conc. 34.1 g/dL (33.0-37.0); Mean Corpuscular Hgb 27.4 pg (27.0-31.0); Mean Corpuscular Volume 80.3 fL (80.0-94.0); Mean Platelet Volume 10.2 fL (7.4-10.4); Nucleated Red Blood Cells % 0 % (-); Platelet Count 205 10^3/uL (130-400); Red Blood Cell Count 3.61 10^6/uL (4.70-6.10); Red Cell Dist. Width 14.9 % (11.5-14.5); White Blood Cell Count 14.7 10^3/uL (4.8-10.8)
[2023-10-16] MEDS: ELIQUIS 5 MG PO (20:03)
[2023-10-16 21:45] LABS: Glucose - Point of Care 131 mg/dl (70-99)
[2023-10-17] VITALS (7 sets, daily range): BP systolic 108–135; BP diastolic 59–72; BMI 21.6
[2023-10-17] MEDS: FLAGYL 500 MG 100 IV ×4 (00:10→23:40)
[2023-10-17] MEDS: MAXIPIME 2000 MG IV ×4 (00:10→23:40)
[2023-10-17] MEDS: STERILE WATER FOR INJECTION 10 ML IV ×4 (00:10→23:41)
[2023-10-17] MEDS: NOVOLOG FLEXPEN-LOW RESISTANCE SC (00:11)
[2023-10-17 01:29] LABS: Glucose - Point of Care 156 mg/dl (70-99)
[2023-10-17] MEDS: ROXICODONE PO (01:45)
[2023-10-17] MEDS: ZOFRAN 4 MG IV ×3 (01:59→15:58)
--- NOTE | 2023-10-17 02:10 | PTCARENOTE ---
Pt given Zofran @ this time r/t nausea. Pt states ' he feels like he is backed up'. absence of flatus or BM this shift, encouraging ambulation but unable to at this time.
[2023-10-17] MEDS: TYLENOL PO (04:00)
[2023-10-17] MEDS: MS CONTIN (EXTENDED RELEASE) 15 MG PO (06:12)
--- NOTE | 2023-10-17 06:22 | PTCARENOTE ---
Pt's condom catheter fell off approx 0300, refused to put another on @ this time r/t nausea and abd pain.
[2023-10-17 08:19] LABS: Glucose - Point of Care 203 mg/dl (70-99)
[2023-10-17 08:46] LABS: ALT (SGPT) 12 U/L (0-50); AST (SGOT) 25 U/L (17-59); Albumin 3.2 g/dl (3.5-5.0); Alkaline Phosphatase 78 U/L (38-126); Blood Urea Nitrogen 40 mg/dl (9-20); Calcium 8.6 mg/dl (8.4-10.2); Carbon Dioxide 33 mmol/L (22-30); Chloride 100 mmol/L (98-107); Estimated Creatinine Clearance 80 ml/min; Glucose 163 mg/dl (70-99); Magnesium 2.2 mg/dl (1.6-2.3); Potassium 5.1 mmol/L (3.5-5.1); Sodium 135 mmol/L (135-145); Total Bilirubin 0.9 mg/dl (0.2-1.3); Total Protein 5.7 g/dl (6.3-8.2); eGFR > 60.00
[2023-10-17] MEDS: NEURONTIN 600 MG PO (08:53)
[2023-10-17] MEDS: NOVOLOG FLEXPEN-LOW RESISTANCE 2 UNITS SC (08:53)
[2023-10-17] MEDS: ELIQUIS 5 MG PO (08:53)
[2023-10-17] MEDS: LASIX 40 MG PO (08:54)
[2023-10-17] MEDS: TOPROL XL 12.5 MG PO (08:54)
[2023-10-17] MEDS: ROXICODONE 10 MG PO (08:57)
[2023-10-17] MEDS: TYLENOL 1000 MG PO (09:00)
--- NOTE | 2023-10-17 09:12 | W.PN.GS2 ---
Addendum entered and electronically signed by Marty Dunaway MD 10/17/23 14:31:
Patient seen and examined this a.m. with nurse practitioner.
Progressive abdominal bloating and distention. Generalized abdominal discomfort/pain from bloating.
Nauseous and intermittent vomiting but the last time was early this a.m.
No flatus, no bowel movements
AFVSS
NAD AAOx3; but uncomfortably appearing
ABD: Soft distended, tympanitic. Mild tenderness but no rebound rigidity or guarding.
Abdominal x-ray with significant small bowel and colonic gaseous distention consistent with an ileus
Assessment/plan: 73-year-old male POD#3 status post ex lap right hemicolectomy
Postop GI function not yet returned and x-rays consistent with ileus; counseled patient as his symptoms he is reporting above are all compatible with his current ileus.
We discussed the utility of an NG tube which he prefers to avoid at this point; if he has worsening abdominal pain, worsening distention or recurrent vomiting I strongly recommended placement which he may agree with at that time
N.p.o. and patient should remain off p.o. meds as these are unlikely to be absorbed in the setting of his ileus
Hold Eliquis
Repeat labs tomorrow a.m. to confirm stability in electrolytes and CBC
Original Note:
Today's Communication / Plan
-
NPO
Check abd xray
Assessment / Plan
-
73 yo male with h/o Afib on Eliquis, DM who presented with likely ischemic (week Doppler signal in the ileocolic pedicle) segmental colitis of the ascending colon and is POD #3 ex lap, right hemicolectomy and tap block
AFVSS
CBC pending
Continued nausea, not passing flatus/stools; suspect ileus.
--Make NPO
--Will likely need IVF while NPO, will defer to primary team
--Abd xray
--Consider changing PO meds to IV until return of bowel function
--Continue current analgesics: long acting po analgesics
--IV abx x4 days post operatively
--SCD's while in bed, on full strength AC
Subjective Data
-
Date of Service: October 17, 2023
Patient seen and examined at bedside. Notes nausea overnight. Not passing flatus or BM's. Incontinent of urine (baseline). Denies fevers/chills.
Objective Data
-
Intake and Output
10/16/23 10/17/23 10/18/23
06:59 06:59 06:59
Intake Total 1380 / 1380 1870 / 1870
Output Total 1700 / 1700 2200 / 2200
Balance -320 / -320 -330 / -330
Intake:
Oral fluids 1080 / 1080 1560 / 1560
IV piggybacks 300 / 300 310 / 310
Output:
Urine, Cramer 550 / 550 1900 / 1900
Urine, Voided 1150 / 1150 300 / 300
Other:
Number of approximated LARGE 1
amounts of urine
Vital Signs
Temp Pulse Resp BP Pulse Ox
97.9 F 87 18 120/72 97
10/17/23 07:15 10/17/23 08:54 10/17/23 07:15 10/17/23 08:54 10/17/23 07:15
Lab Results
10/17/23 08:14
Calcium 8.6 mg/dl (8.4-10.2) 10/17/23 08:14
Magnesium 2.2 mg/dl (1.6-2.3) 10/17/23 08:14
Total Bilirubin 0.9 mg/dl (0.2-1.3) 10/17/23 08:14
Direct Bilirubin 0.2 mg/dl (0.0-0.4) 10/13/23 03:20
AST 25 U/L (17-59) 10/17/23 08:14
ALT 12 U/L (0-50) 10/17/23 08:14
Alkaline Phosphatase 78 U/L (38-126) 10/17/23 08:14
Total Protein 5.7 g/dl (6.3-8.2) L 10/17/23 08:14
Albumin 3.2 g/dl (3.5-5.0) L 10/17/23 08:14
Physical Exam
-
NAD, ox3
ABD with mild to moderate distention, generalized tenderness. Dressing dry/intact
--- NOTE | 2023-10-17 09:18 | W.PN.CARDCBS ---
Today's Communication / Plan
-
Some nausea and vomited this AM. Colorectal surgery suspects ileus. Now NPO. BP was lower now improved. Getting abd chest xray.
Cont post op care.
He was resumed on outpt lasix for now Lasix 40 mg p.o. twice daily Oct 15. Wt 167 and he came in with wt 166.
Transition to lasix 20 mg IV BID
Wean oxygen.
He has prior hx of acute pulm edema in past as well as significant orthostasis, so would continue to watch fluid status, Is and Os and daily wts closely.
With long hx of orthostasis, if bp becomes low can add midodrine.
Continue Toprol.
Remains SR with prior brief atrial tachycardia
He had been placed back on oral anticoagulation. Now POs on hold
As he remains in sinus with eval of abd ongoing, hold off on resuming anticoagulation today, Oct 16.
Impression / Plan
-
.
PCP: Dr. Sivakumar Patel
Primary Ladler: Dr. Garcia
Impression:
-Presentation with abd pain, N/V
-Acute colitis s/p R colectomy 10/13
-Concern for acute on chronic HFpEF
-Hx Recovered CM: CM EF 15-20% by echo Jan 2020 with EF 30% by echo 04/20/19 with h/o recovered CM EF 65% by echo 05/2022, EF 53% by echo 07/20/23
-CAD
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
CABG with occluded QUIÑONES to LAD by cath 2019, but patent SVG seq to Diag-OM-PDA 02/2014
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
-PAD s/p right femoral endarterectomy and right iliac stenting 02/2016
-PAD s/p right SFA and popliteal PATIENT RELATIONS SPECIALIST and stent 10/24/19
-possible TIA with noted L carotid stenosis s/p L CEA 03/03/23
-Paroxysmal Afib
-Chronic Eliquis OAC
-HTN
-Moderate to severe chronic obstructive pulmonary disease
-DM2 with Diabetic neuropathy
-Pulmonary HTN
-Hx prostate cancer s/p surgery 2007
-Medical marijuana use
-former smoker
CATH 2019: Left main and three-vessel [place] coronary total occlusions, patent sequential SVG to diagonal/OM/PDA with collaterals to LAD, and occluded QUIÑONES to LAD, anterolateral wall hypokinesis with mild LV dysfunction
Echo 08/2022: Mild LVH, mid to apical anterior and anteroseptal hypokinesis, EF 50%, bioprosthetic mitral valve with peak/mean gradients 10/6 mmHg, GASTON 1.5 cm�, trace MR, dilated left atrium, aortic sclerosis, normal right heart cardiac
Echo 07/20/2023: EF 53%, mild concentric LVH. Bovine mitral valve replacement well-seated peak/mean gradient 20/10 mmHg with MV area 1.4 cm�, moderate MS with mild to moderate MR. Mild TR with PAP 35 mmHg
Plan:
-Patient presents with abd pain, N/V. found by CTAP to have acute colitis s/p R colectomy 10/13/23
Some nausea and vomited this AM. Colorectal surgery suspects ileus. Now NPO. BP was lower now improved. Getting abd chest xray.
Cont post op care.
He was resumed on outpt lasix for now Lasix 40 mg p.o. twice daily Oct 15. Wt 167 and he came in with wt 166.
Transition to lasix 20 mg IV BID
Wean oxygen.
He has prior hx of acute pulm edema in past as well as significant orthostasis, so would continue to watch fluid status, Is and Os and daily wts closely.
With long hx of orthostasis, if bp becomes low can add midodrine.
Continue Toprol.
Remains SR with prior brief atrial tachycardia
He had been placed back on oral anticoagulation. Now POs on hold
As he remains in sinus with eval of abd ongoing, hold off on resuming anticoagulation today, Oct 16.
Discussed with nursing.
Progress Note - Ladler
Subjective
Date of Service: October 17, 2023
Pt seen and examined. Nausea vomited this am. No cp or dyspnea
Objective
Labs:
10/17/23 08:14
Labs
Hgb 9.9 g/dL (13.0-18.0) L 10/16/23 18:19
Hct 29.0 % (39.0-52.0) L 10/16/23 18:19
Plt Count 205 10^3/uL (130-400) 10/16/23 18:19
APTT Cancelled 10/16/23 21:30
Sodium 135 mmol/L (135-145) 10/17/23 08:14
Potassium 5.1 mmol/L (3.5-5.1) 10/17/23 08:14
BUN 40 mg/dl (9-20) H 10/17/23 08:14
Creatinine 0.9 mg/dL (0.7-1.3) 10/17/23 08:14
Glucose 163 mg/dl (70-99) H 10/17/23 08:14
Vital Signs and I&O:
Vital Signs
Temp Pulse Resp BP Pulse Ox
97.9 F 87 18 120/72 97
10/17/23 07:15 10/17/23 08:54 10/17/23 07:15 10/17/23 08:54 10/17/23 07:15
Vital Signs
Temp Pulse Resp BP Pulse Ox
97.9 F 87 18 120/72 97
10/17/23 07:15 10/17/23 08:54 10/17/23 07:15 10/17/23 08:54 10/17/23 07:15
Intake & Output
10/15/23 10/16/23 10/17/23 10/18/23
06:59 06:59 06:59 06:59
Intake Total 2800 / 2800 1380 / 1380 1870 / 1870
Output Total 1420 / 1420 1700 / 1700 2200 / 2200
Balance 1380 / 1380 -320 / -320 -330 / -330
Physical Exam
Physical Exam
General: No acute distress, AAOX3
Neck: Negative JVD
Heart: Regular, Negative S3 positive S1/S2, Negative S4, No murmur
Lungs: CTA b/l, negative wheezes/rales/rhonchi
Abd: Positive BS, NT/ND, neg rebound/rigidity/guarding
Ext: Negative cyanosis/clubbing/edema
Neuro: nonfocal
[2023-10-17 09:39] LABS: % Basophils 0.5 % (0-2); % Eosinophils 3.4 % (0-6); % Immature Granulocytes 0.7 % (0-0.5); % Monocytes 6.6 % (1.7-9.3); % Neutrophils 79.8 % (42.2-75.2); Absolute Basophils 0.1 10^3/uL (0-0.2); Absolute Eosinophils 0.5 10^3/uL (0-0.7); Absolute Immature Granulocytes 0.1 10^3/uL (0-0.05); Absolute Lymphocytes 1.3 10^3/uL (1.2-3.4); Absolute Neutrophils 11.8 10^3/uL (1.4-6.5); Hematocrit 30.7 % (39.0-52.0); Mean Corp Hgb Conc. 32.6 g/dL (33.0-37.0); Mean Corpuscular Hgb 27.5 pg (27.0-31.0); Mean Corpuscular Volume 84.6 fL (80.0-94.0); Mean Platelet Volume 11.5 fL (7.4-10.4); Nucleated Red Blood Cells % 0 % (-); Platelet Count 229 10^3/uL (130-400); Red Blood Cell Count 3.63 10^6/uL (4.70-6.10); Red Cell Dist. Width 14.9 % (11.5-14.5); White Blood Cell Count 14.8 10^3/uL (4.8-10.8)
--- NOTE | 2023-10-17 10:44 | PTCARENOTE ---
Patient vomited shortly after taking his morning medications.He also received Roxicodone for pain at a 7-8 out of 10 at that time.Patient reports no relief of pain so will give him the Dilaudid intravenously.
[2023-10-17] MEDS: DILAUDID 1 MG IV ×3 (10:46→23:55)
--- NOTE | 2023-10-17 11:35 | W.PN.HOSP.TC ---
Today's Communication/Plan
-
IV Lasix
PO meds to be held due to ileus
Eliquis to be held today due to ileus and Heparin Drip can be started tomorrow as per cardiology given cardiac rhythm
SCDs for DVT prophylaxis
Assessment / Plan
Assessment / Plan
Physical Exam
General: Not in acute distress
HEENT: Normocephalic
Respiratory: Decreased Breath Sounds Bilaterally
Cardiac: S1/S2 and Regular Rhythm
GI: Soft, Non Distended and Positive Bowel Sounds. Appropriate postsurgical tenderness.
Musculoskeletal: No Cyanosis and No Edema
Skin: Warm. Dry.
Neuro: AAOx3. Nonfocal/grossly intact
Assessment/Plan
#Presentation with abdominal pain and shortness of breath
#Segmental colitis of the ascending colon - likely ischemic, but possible inflammatory versus infectious - status post ex lap, right hemicolectomy with primary anastomosis and tap block on 10/13/23
#Concern for Sepsis POA
#Atherosclerotic Superior Mesenteric Artery
#Leukocytosis - worsened during this hospitalization but then improving now
-Stool culture, stool for C. difficile, blood cultures ordered in ER: follow-up results
-Follow-up pathology from surgery
-Received ceftriaxone and Flagyl in ER
-Now continue Cefepime and Flagyl for 4 days postoperatively (through TODAY October 17, 2023)
-Diet changed back to NPO given ileus and vomiting on October 17, 2023. No PO meds for now.
-Continue pain control
-GI and colorectal surgery consulted
-Low threshold to transfer to higher level of care (e.g. IMU) post operatively given his significant CAD and history of flash pulmonary edema.
-Eliquis is on hold given NPO as above, as per cardiology can resume Heparin Drip tomorrow, not today
#Small Right Pleural Effusion on CT Imaging
#Presentation with SOB and abdominal pain
#Concern for acute on chronic HFpEF
#History of Pulmonary Edema
#Acute pulmonary edema due to acute on chronic HFpEF - Pulmonary Edema on October 15, 2023
#Acute Respiratory Distress Due to Pulmonary Edema - RESOLVED
-BNP 3520
-Status post IV Lasix then PO Lasix 40 mg PO BID --> now changed back to IV Lasix due to weight increase
-Continue Toprol XL
-Strict I's & O's and daily weights
-Cardiology consulted, recommendations appreciated
# Anemia of chronic disease
-No active bleeding
-Continue to monitor
#Coronary disease with CABG in 2013
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
-Occluded QUIÑONES to LAD by cath 2019
-Continue statin
#Bioprosthetic mitral valve replacement 2013
#Peripheral artery disease with history of right femoral endarterectomy and right iliac stenting 2015
-Right SFA and popliteal SALES ASSISTANTS AND SALESPERSONS and stenting in 2019
-Continue Statin.
# Status post TURBT on 07/16/2023 recurrent low grade bladder cancer
# History of TIA with left carotid stenosis status post CEA March 03, 2023- statin
# Paroxysmal atrial fibrillation
-Hold anticoagulation for TODAY as discussed with GI and cardio
-Metoprolol continued
#Orthostatic hypotension
-PRN Midodrine continued
#chronic pain
-oxy, morphine continued
# Hypertension-history of chronic hypotension therefore not on any medicines as outpatient
-Toprol XL 12.5 mg daily
# COPD-Stable.
# Chronic hypotension on midodrine chronic dizziness. Patient uses midodrine as needed at home if he feels dizzy. He states that he is well versed in how to manage as he sits down stands up slowly
# Diabetes with diabetic neuropathy
-Hold home Glipizide 2.5 mg daily
-Hold metformin
-Continue gabapentin
-Continue Sliding Scale Insulin coverage
# Hyperlipidemia-continue statin
# Pulmonary hypertension
# History of prostate cancer with prostatectomy in 2008
# Medical marijuana use
# Chronic left foot drop
# Insomnia - Ambien as outpatient
#History of Hematuria
# [id number]-yvom in 2007
#DVT prophylaxis: SCDs
#DNR (patient confirmed that he is DNR at the time of admission)
Anticipated Discharge: > 48 hours
Subjective/Interval History
-
Date of Service: October 17, 2023
Patient was seen and examined. He reported abdominal pain from the surgery but otherwise denied any other new, significant symptoms or complaints. But per surgery team, patient developed ileus and vomiting today.
Objective Data
-
Labs:
Laboratory Results
10/17/23
08:14
WBC 14.8 H
Hgb 10.0 L
Hct 30.7 L
Plt Count 229
Sodium 135
Potassium 5.1
Chloride 100
Carbon Dioxide 33 H
BUN 40 H
Creatinine 0.9
Glucose 163 H
Calcium 8.6
Total Bilirubin 0.9
AST 25
ALT 12
Alkaline Phosphatase 78
Vital Signs:
Vital Signs
Temp Pulse Resp BP Pulse Ox
98.5 F 89 16 115/59 97
10/17/23 11:15 10/17/23 11:15 10/17/23 11:15 10/17/23 11:15 10/17/23 11:15
I&O
10/16/23 10/17/23 10/18/23
06:59 06:59 06:59
Intake Total 1380 / 1380 1870 / 1870
Output Total 1700 / 1700 2200 / 2200
Balance -320 / -320 -330 / -330
[2023-10-17 12:01] LABS: Glucose - Point of Care 185 mg/dl (70-99)
[2023-10-17] MEDS: NOVOLOG FLEXPEN-LOW RESISTANCE 1 UNITS SC ×2 (12:55→18:45)
[2023-10-17] MEDS: MS CONTIN (EXTENDED RELEASE) PO ×3 (12:56→20:16)
[2023-10-17] MEDS: OFIRMEV 100 IV ×2 (15:08→20:31)
[2023-10-17] MEDS: LASIX 20 MG IV (16:17)
[2023-10-17] MEDS: FLUSH (NSS) 2 FLUSH IV (16:18)
[2023-10-17] MEDS: NEURONTIN PO ×2 (16:18→20:17)
[2023-10-17 18:24] LABS: Glucose - Point of Care 176 mg/dl (70-99)
--- NOTE | 2023-10-17 23:57 | W.PN.UPDATE ---
Update Note
Progress Note Update
Per Attending note -dc abx post op day 4. Will give midnight dose but complete doses thereafter
[2023-10-18 00:10] LABS: Glucose - Point of Care 161 mg/dl (70-99)
[2023-10-18] MEDS: NOVOLOG FLEXPEN-LOW RESISTANCE 1 UNITS SC ×4 (00:11→23:21)
--- NOTE | 2023-10-18 00:16 | PTCARENOTE ---
Pt reports @ this time he he is passing a small of flatus.
[2023-10-18] MEDS: OFIRMEV 100 IV ×2 (02:43→08:35)
[2023-10-18 03:01] VITALS: BP 94/48
[2023-10-18 06:00] VITALS: BMI 21.6
[2023-10-18 06:04] LABS: Glucose - Point of Care 146 mg/dl (70-99)
[2023-10-18] MEDS: NOVOLOG FLEXPEN-LOW RESISTANCE SC (06:04)
--- NOTE | 2023-10-18 06:16 | PTCARENOTE ---
Pt had no further episodes of n/v this shift, reported one episode of passing gas.
[2023-10-18] MEDS: DILAUDID 0.5 MG IV ×2 (06:21→14:52)
[2023-10-18 06:42] LABS: Hemoglobin 8.9 g/dL (13.0-18.0); Mean Corp Hgb Conc. 34.2 g/dL (33.0-37.0); Mean Corpuscular Hgb 27.5 pg (27.0-31.0); Mean Corpuscular Volume 80.2 fL (80.0-94.0); Platelet Count 234 10^3/uL (130-400); Red Blood Cell Count 3.24 10^6/uL (4.70-6.10); Red Cell Dist. Width 14.9 % (11.5-14.5); White Blood Cell Count 16.2 10^3/uL (4.8-10.8)
[2023-10-18 07:05] LABS: Blood Urea Nitrogen 37 mg/dl (9-20); Calcium 8.6 mg/dl (8.4-10.2); Carbon Dioxide 29 mmol/L (22-30); Chloride 100 mmol/L (98-107); Estimated Creatinine Clearance 72 ml/min; Glucose 126 mg/dl (70-99); Magnesium 2.1 mg/dl (1.6-2.3); Potassium 3.9 mmol/L (3.5-5.1); Sodium 135 mmol/L (135-145); eGFR > 60.00
[2023-10-18 07:10] VITALS: BP 137/62
[2023-10-18] MEDS: LASIX 20 MG IV ×2 (07:50→18:06)
[2023-10-18] MEDS: TOPROL XL PO ×2 (07:51→08:06)
[2023-10-18] MEDS: MS CONTIN (EXTENDED RELEASE) 15 MG PO ×2 (07:51→16:08)
[2023-10-18] MEDS: NEURONTIN PO ×4 (07:51→21:45)
--- NOTE | 2023-10-18 08:08 | W.PN.CARDCBS ---
Today's Communication / Plan
-
Cont gentle IV diuresis while NPO then transition back to outpt lasix dosing
ok for IV Heparin from cardiac standpoint
Cont post op care
Impression / Plan
-
.
PCP: Dr. Sivakumar Patel
Primary Casting Carrier: Dr. Garcia
Impression:
-Presentation with abd pain, N/V
-Acute colitis s/p R colectomy 10/13
-Post op ileus, improving
-Concern for acute on chronic HFpEF
-Hx Recovered CM: CM EF 15-20% by echo Jan 2020 with EF 30% by echo 04/20/19 with h/o recovered CM EF 65% by echo 05/2022, EF 53% by echo 07/20/23
-CAD
s/p unsuccessful attempted PCI of LAD CARD GRADER 03/07/16
CABG with occluded QUIÑONES to LAD by cath 2019, but patent SVG seq to Diag-OM-PDA 02/2014
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
-PAD s/p right femoral endarterectomy and right iliac stenting 02/2016
-PAD s/p right SFA and popliteal OPHTHALMIC TECHNICIAN and stent 10/24/19
-possible TIA with noted L carotid stenosis s/p L CEA 03/03/23
-Paroxysmal Afib
-Chronic Eliquis OAC
-HTN
-Moderate to severe chronic obstructive pulmonary disease
-DM2 with Diabetic neuropathy
-Pulmonary HTN
-Hx prostate cancer s/p surgery 2007
-Medical marijuana use
-former smoker
CATH 2019: Left main and three-vessel morongo coronary total occlusions, patent sequential SVG to diagonal/OM/PDA with collaterals to LAD, and occluded QUIÑONES to LAD, anterolateral wall hypokinesis with mild LV dysfunction
Echo 08/2022: Mild LVH, mid to apical anterior and anteroseptal hypokinesis, EF 50%, bioprosthetic mitral valve with peak/mean gradients 10/6 mmHg, GASTON 1.5 cm�, trace MR, dilated left atrium, aortic sclerosis, normal right heart cardiac
Echo 07/20/2023: EF 53%, mild concentric LVH. Bovine mitral valve replacement well-seated peak/mean gradient 20/10 mmHg with MV area 1.4 cm�, moderate MS with mild to moderate MR. Mild TR with PAP 35 mmHg
Plan:
-Patient presents with abd pain, N/V. found by CTAP to have acute colitis s/p R colectomy 10/13/23. Post op ileus 10/16.
Cont post op ileus care as per surgery. Remains NPO 10/17.
Cont post op care.
Transition to lasix 20 mg IV BID to continue with gentle diuresis while NPO. His outpt lasix dosing is lasix 40 mg PO BID. Wt is stable. Wt coming in was 166.
Is and Os are largely equivalent.
He has prior hx of acute pulm edema in past as well as significant orthostasis, so would continue to watch fluid status, Is and Os and daily wts closely.
With long hx of orthostasis, if bp becomes low can add midodrine.
Continue Toprol.
Remains SR with prior brief atrial tachycardia
Can resume IV heparin. Remains in sinus
Eventual transition back to oral anticoagulation. POs remain on hold
Discussed with surgery.
Progress Note - Casting Carrier
Subjective
Date of Service: October 18, 2023
Pt seen and examined. No cp or dyspnea
Objective
Labs:
10/18/23 05:28
10/18/23 05:28
Labs
Hgb 8.9 g/dL (13.0-18.0) L 10/18/23 05:28
Hct 26.0 % (39.0-52.0) L 10/18/23 05:28
Plt Count 234 10^3/uL (130-400) 10/18/23 05:28
APTT Cancelled 10/16/23 21:30
Sodium 135 mmol/L (135-145) 10/18/23 05:28
Potassium 3.9 mmol/L (3.5-5.1) 10/18/23 05:28
BUN 37 mg/dl (9-20) H 10/18/23 05:28
Creatinine 1.0 mg/dL (0.7-1.3) 10/18/23 05:28
Glucose 126 mg/dl (70-99) H 10/18/23 05:28
Vital Signs and I&O:
Vital Signs
Temp Pulse Resp BP Pulse Ox
98 F 84 16 137/62 95
10/18/23 07:10 10/18/23 07:50 10/18/23 07:10 10/18/23 07:50 10/18/23 07:10
Vital Signs
Temp Pulse Resp BP Pulse Ox
98 F 84 16 137/62 95
10/18/23 07:10 10/18/23 07:50 10/18/23 07:10 10/18/23 07:50 10/18/23 07:10
Intake & Output
10/16/23 10/17/23 10/18/23 10/19/23
06:59 06:59 06:59 06:59
Intake Total 1380 / 1380 1870 / 1870 950 / 950
Output Total 1700 / 1700 2200 / 2200 1320 / 1320
Balance -320 / -320 -330 / -330 -370 / -370
Physical Exam
Physical Exam
General: No acute distress, AAOX3
Neck: Negative JVD
Heart: Regular, Negative S3 positive S1/S2, Negative S4, No murmur
Lungs: CTA b/l, negative wheezes/rales/rhonchi
Abd: Positive BS, NT/ND, neg rebound/rigidity/guarding
Ext: Negative cyanosis/clubbing/edema
Neuro: nonfocal
--- NOTE | 2023-10-18 08:39 | W.PN.GS2 ---
Today's Communication / Plan
-
`
Assessment / Plan
-
73 yo male with h/o Afib on Eliquis, DM who presented with likely ischemic (week Doppler signal in the ileocolic pedicle) segmental colitis of the ascending colon and is POD #4 ex lap, right hemicolectomy and tap block
AFVSS
Improving ileus but not full return of GI function
Leukocytosis with slight bump today -continue to monitor
Hemoglobin 8.9 -no active signs of bleeding, hemodynamically stable
Plan:
--Continue n.p.o. except ice chips and sips for comfort
Would continue to hold most p.o. meds
--IV fluids per primary/cardiology
--Continue current analgesics: long acting po analgesics
--Eliquis continue to hold after initial dose administered 8/2 PM
- if resume heparin gtt no bolus and follow H&H
--SCD's while in bed
Subjective Data
-
Date of Service: October 18, 2023
Patient seen and examined
States that he is feeling better today
Less distention, starting to pass occasional flatus but no bowel.
Nausea mild at times
Objective Data
-
Intake and Output
10/17/23 10/18/23 10/19/23
06:59 06:59 06:59
Intake Total 1870 / 1870 950 / 950
Output Total 2200 / 2200 1320 / 1320
Balance -330 / -330 -370 / -370
Intake:
Oral fluids 1560 / 1560 640 / 640
IV piggybacks 310 / 310 310 / 310
Output:
Urine, Cramer 1900 / 1900
Urine, Voided 300 / 300 1320 / 1320
Other:
Number of approximated LARGE 1
amounts of urine
Vital Signs
Temp Pulse Resp BP Pulse Ox
98 F 84 16 137/62 95
10/18/23 07:10 10/18/23 07:50 10/18/23 07:10 10/18/23 07:50 10/18/23 07:10
Lab Results
10/18/23 05:28
10/18/23 05:28
Calcium 8.6 mg/dl (8.4-10.2) 10/18/23 05:28
Magnesium 2.1 mg/dl (1.6-2.3) 10/18/23 05:28
Total Bilirubin 0.9 mg/dl (0.2-1.3) 10/17/23 08:14
Direct Bilirubin 0.2 mg/dl (0.0-0.4) 10/13/23 03:20
AST 25 U/L (17-59) 10/17/23 08:14
ALT 12 U/L (0-50) 10/17/23 08:14
Alkaline Phosphatase 78 U/L (38-126) 10/17/23 08:14
Total Protein 5.7 g/dl (6.3-8.2) L 10/17/23 08:14
Albumin 3.2 g/dl (3.5-5.0) L 10/17/23 08:14
Physical Exam
-
NAD AAOx3; resting comfortably in hospital bed
ABD: Softly protuberant, mild tenderness on palpation, incision dressing janet in place. No erythema, no drainage, no open wounds
--- NOTE | 2023-10-18 10:19 | W.PN.HOSP.TC ---
Today's Communication/Plan
-
Ileus is improving
Started scheduled IV Lopressor in place of Toprol XL
Continue IV Lasix
Will restart Heparin Drip
Assessment / Plan
Assessment / Plan
Physical Exam
General: Not in acute distress
HEENT: Normocephalic
Respiratory: Decreased Breath Sounds Bilaterally
Cardiac: S1/S2 and Regular Rhythm
GI: Soft, Non Distended and Positive Bowel Sounds. Appropriate postsurgical tenderness.
Musculoskeletal: No Cyanosis and No Edema
Skin: Warm. Dry.
Neuro: AAOx3. Nonfocal/grossly intact
Assessment/Plan
#Presentation with abdominal pain and shortness of breath
#Segmental colitis of the ascending colon - likely ischemic, but possible inflammatory versus infectious - status post ex lap, right hemicolectomy with primary anastomosis and tap block on 10/13/23
#Concern for Sepsis POA
#Atherosclerotic Superior Mesenteric Artery
#Leukocytosis
#Ileus on October 17, 2023
-Stool culture, stool for C. difficile, blood cultures ordered in ER: follow-up results
-Follow-up pathology from surgery
-Received ceftriaxone and Flagyl in ER
-Now continue Cefepime and Flagyl for 4 days postoperatively (through TODAY October 17, 2023)
-Diet changed back to NPO given ileus and vomiting on October 17, 2023. No PO meds for now.
-Continue pain control
-GI and colorectal surgery consulted
-Low threshold to transfer to higher level of care (e.g. IMU) post operatively given his significant CAD and history of flash pulmonary edema.
-Eliquis is on hold given NPO as above, as per cardiology and surgery can resume Heparin Drip today
-Continue to monitor H&H
#Small Right Pleural Effusion on CT Imaging
#Presentation with SOB and abdominal pain
#Concern for acute on chronic HFpEF
#History of Pulmonary Edema
#Acute pulmonary edema due to acute on chronic HFpEF - Pulmonary Edema on October 15, 2023
#Acute Respiratory Distress Due to Pulmonary Edema - RESOLVED
-Patient has a history of acute pulmonary edema as well as history of significant orthostasis, so continue to watch fluid status, Is and Os and daily weights closely
-Status post IV Lasix then PO Lasix 40 mg PO BID --> then changed back to IV Lasix due to weight increase
-Continue IV Lasix 20 mg BID
-Continue Toprol XL
-Strict I's & O's and daily weights
-Cardiology consulted, recommendations appreciated
# Anemia of chronic disease
-Continue to monitor CBC
#Coronary disease with CABG in 2013
-Unsuccessful attempted PCI of LAD PRODUCTION TECHNOLOGIST 03/07/16
-Occluded QUIÑONES to LAD by cath 2019
-Continue statin when able to take oral medications
#Bioprosthetic mitral valve replacement 2013
#Peripheral artery disease with history of right femoral endarterectomy and right iliac stenting 2015
-Right SFA and popliteal FOOD SERVICE AMBASSADOR and stenting in 2019
-Continue Statin when able to take oral medications
# Status post TURBT on 07/16/2023 recurrent low grade bladder cancer
# History of TIA with left carotid stenosis status post CEA March 03, 2023- statin
# Paroxysmal atrial fibrillation
-Can resume Heparin Drip today as per cardiology
-Toprol XL on hold due to NPO state
-Will replace with scheduled IV Lopressor for now
#Orthostatic hypotension
-PRN Midodrine continued
#chronic pain
-oxy, morphine continued when able to take PO
# Hypertension-history of chronic hypotension therefore not on any medicines as outpatient
-Toprol XL 12.5 mg daily when able to take PO
-Replace with Lopressor IV scheduled for now while NPO
# COPD-Stable.
# Chronic hypotension on midodrine chronic dizziness. Patient uses midodrine as needed at home if he feels dizzy. He states that he is well versed in how to manage as he sits down stands up slowly
# Diabetes with diabetic neuropathy
-Hold home Glipizide 2.5 mg daily
-Hold metformin
-Continue gabapentin
-Continue Sliding Scale Insulin coverage
# Hyperlipidemia-continue statin
# Pulmonary hypertension
# History of prostate cancer with prostatectomy in 2008
# Medical marijuana use
# Chronic left foot drop
# Insomnia - Ambien as outpatient
#History of Hematuria
# [id number] in 2007
#DVT prophylaxis: Heparin Drip
#DNR (patient confirmed that he is DNR at the time of admission)
Anticipated Discharge: > 48 hours
Subjective/Interval History
-
Date of Service: October 18, 2023
Patient was seen and examined. He denied any new chest pain or shortness of breath, still with some post-surgical abdominal pain, and nausea.
Objective Data
-
Labs:
Laboratory Results
10/18/23
05:28
WBC 16.2 H
Hgb 8.9 L
Hct 26.0 L
Plt Count 234
Sodium 135
Potassium 3.9
Chloride 100
Carbon Dioxide 29
BUN 37 H
Creatinine 1.0
Glucose 126 H
Calcium 8.6
Vital Signs:
Vital Signs
Temp Pulse Resp BP Pulse Ox
98 F 84 16 137/62 95
10/18/23 07:10 10/18/23 07:50 10/18/23 07:10 10/18/23 07:50 10/18/23 07:10
I&O
10/17/23 10/18/23 10/19/23
06:59 06:59 06:59
Intake Total 1870 / 1870 950 / 950
Output Total 2200 / 2200 1320 / 1320
Balance -330 / -330 -370 / -370
[2023-10-18 11:22] LABS: Hematocrit 30.1 % (39.0-52.0); Hemoglobin 10.1 g/dL (13.0-18.0); Mean Corp Hgb Conc. 33.6 g/dL (33.0-37.0); Mean Corpuscular Hgb 27.5 pg (27.0-31.0); Mean Platelet Volume 10.8 fL (7.4-10.4); Platelet Count 251 10^3/uL (130-400); Red Blood Cell Count 3.67 10^6/uL (4.70-6.10); Red Cell Dist. Width 14.9 % (11.5-14.5); White Blood Cell Count 18.6 10^3/uL (4.8-10.8)
[2023-10-18 11:32] LABS: APTT 39.5 Sec (23.4-35.0)
[2023-10-18] MEDS: LOPRESSOR 3.125 MG IV ×2 (12:00→23:22)
[2023-10-18] MEDS: HEPARIN 25000 UNITS/250 ML IV (12:02)
[2023-10-18 12:14] LABS: Glucose - Point of Care 180 mg/dl (70-99)
[2023-10-18 14:55] VITALS: BP 143/61
[2023-10-18 16:23] VITALS: BP 85/40
[2023-10-18] MEDS: ProAmatine 5 MG PO (16:28)
[2023-10-18] MEDS: LOPRESSOR IV (16:30)
[2023-10-18 18:41] LABS: APTT 104.7 Sec (23.4-35.0)
[2023-10-18 18:42] LABS: Glucose - Point of Care 173 mg/dl (70-99)
[2023-10-18 19:16] VITALS: BP 118/66
[2023-10-18] MEDS: DILAUDID 1 MG IV (20:39)
[2023-10-18] MEDS: MS CONTIN (EXTENDED RELEASE) PO (21:44)
[2023-10-18 23:05] VITALS: BP 118/57
[2023-10-18 23:18] LABS: Glucose - Point of Care 175 mg/dl (70-99)
[2023-10-19 01:22] LABS: APTT 96.2 Sec (23.4-35.0)
[2023-10-19] MEDS: DILAUDID 1 MG IV ×3 (01:24→23:45)
--- NOTE | 2023-10-19 01:30 | PTCARENOTE ---
Pt upset and complaining of severe pain. Pt reports pain t/o his body ' from the tip of my toes to the tip of my nose'. PRN pain medication administered as ordered. heparin gtt infusing as ordered. Will continue to monitor.
[2023-10-19 03:00] VITALS: BP 125/68
[2023-10-19] MEDS: ZOFRAN 4 MG IV ×2 (05:08→11:09)
[2023-10-19] MEDS: LOPRESSOR 3.125 MG IV ×4 (05:08→23:37)
[2023-10-19 05:33] LABS: Glucose - Point of Care 127 mg/dl (70-99)
[2023-10-19] MEDS: NOVOLOG FLEXPEN-LOW RESISTANCE SC (05:39)
[2023-10-19 06:00] VITALS: BMI 21.1
--- NOTE | 2023-10-19 06:10 | PTCARENOTE ---
Pt requesting to get OOB this am. CC removed per pt request, brief applied. PRN pain medication administered as ordered. Pt able to stand on standing scale to get weighed. Pt denied wanting to get set up in chair. Pt states 'thats all for now'. Pt
assisted back to bed. Pt reports feeling weak and tired. heparin gtt infusing as ordered. Will continue to monitor.
[2023-10-19 07:15] LABS: APTT 55.2 Sec (23.4-35.0)
[2023-10-19 07:20] VITALS: BP 116/56
[2023-10-19 07:22] LABS: Hematocrit 29.4 % (39.0-52.0); Hemoglobin 9.9 g/dL (13.0-18.0); Mean Corp Hgb Conc. 33.7 g/dL (33.0-37.0); Mean Corpuscular Volume 83.1 fL (80.0-94.0); Mean Platelet Volume 11.2 fL (7.4-10.4); Platelet Count 328 10^3/uL (130-400); Red Blood Cell Count 3.54 10^6/uL (4.70-6.10); Red Cell Dist. Width 14.9 % (11.5-14.5); White Blood Cell Count 20.2 10^3/uL (4.8-10.8)
[2023-10-19 07:32] LABS: Blood Urea Nitrogen 33 mg/dl (9-20); Carbon Dioxide 32 mmol/L (22-30); Chloride 99 mmol/L (98-107); Estimated Creatinine Clearance 78 ml/min; Glucose 121 mg/dl (70-99); Potassium 4.5 mmol/L (3.5-5.1); Sodium 137 mmol/L (135-145); eGFR > 60.00
[2023-10-19] MEDS: NEURONTIN 600 MG PO ×3 (08:17→22:02)
[2023-10-19] MEDS: MS CONTIN (EXTENDED RELEASE) 15 MG PO ×3 (08:18→22:02)
[2023-10-19 08:20] LABS: % Basophils 0.6 % (0-2); % Eosinophils 3.9 % (0-6); % Immature Granulocytes 1.8 % (0-0.5); % Lymphocytes 12.4 % (20.5-51.1); % Monocytes 7.9 % (1.7-9.3); % Neutrophils 73.4 % (42.2-75.2); Absolute Basophils 0.1 10^3/uL (0-0.2); Absolute Eosinophils 0.8 10^3/uL (0-0.7); Absolute Immature Granulocytes 0.4 10^3/uL (0-0.05); Absolute Lymphocytes 2.6 10^3/uL (1.2-3.4); Absolute Monocytes 1.6 10^3/uL (0.1-0.6); Absolute Neutrophils 15.1 10^3/uL (1.4-6.5); Nucleated Red Blood Cells % 0 % (-)
[2023-10-19] MEDS: ROXICODONE 10 MG PO (08:22)
[2023-10-19] MEDS: LASIX 20 MG IV (08:26)
--- NOTE | 2023-10-19 08:43 | W.PN.CRS1 ---
Addendum entered and electronically signed by Eyal Kerr MD 10/19/23 13:01:
Personally reviewed CT, anastomosis looks intact, no obvious collection, significant stool burden; unclear etiology of leukocytosis; will draw blood culture and UA/UCx and restart IV zosyn
Original Note:
Today's Communication / Plan
-
Cont NPO
Repeat CTAP
Assessment/Plan
-
73-year-old male with PMH of CAD s/p CABG/MVR, CHF, A-fib (on Eliquis), PVD (s/p left first toe amp, left CEA), DM, COPD, HTN, HLD, left foot drop, bladder cancer s/p TURBT, prostate cancer s/p prostatectomy who presents with 2 days of right-sided
abdominal pain associated with 1 day of shortness of breath and nausea/vomiting x 1. This is never happened to him before. He has been constipated since Thursday, denies any diarrhea or blood per rectum. His last colonoscopy was in [address] Silva,
which had a poor prep, 5 mm rectal polyp and internal hemorrhoids. In the ED, WBC 18.5, BNP 3520, UA negative, lactate 2.1, AFVSS, CT showing ascending colitis more likely infectious/inflammatory versus ischemic. He was admitted with IV
antibiotics. However, he developed worsening leukocytosis and fever with worsening abdominal pain, concerning for threatened bowel.
POD 6 ex lap, right hemicolectomy with primary anastomosis and tap block
-no IntraOp issues with hemodynamics; received 1 L fluids, EBL 75; etiology of ascending colitis unclear during surgery but heightened concern for ischemic bowel based on week Doppler signal in the ileocolic pedicle; remainder of bowel without
evidence of ischemia
-C/b delayed return of bowel function
AFVSS
WBC 20.2 from 18.6, Hb 9.9 from 10.1, Cr 0.9
�Segmental colitis of the ascending colon; likely ischemic, possible inflammatory versus infectious
� Follow-up pathology
�Appreciate GI; stool studies never sent as patient had been constipated
-off abx; will order repeat CTAP for rising leukocytosis
� Continue n.p.o. with sips; gentle hydration, okay for p.o. meds
� Continue pain control
�Continue long-acting pain regimen; continue standing Tylenol and Dilaudid as needed for breakthrough
� Cont hep gtt
- Strict I/Os
-cont lasix per primary/cards
� Appreciate cardiology for postoperative care of cardiac comorbidities
� Appreciate hospitalist
Subjective Data
Procedure
10/13/2023-Exploratory laparotomy, right hemicolectomy, TAP block
Subjective Data
Date of Service: October 19, 2023
No overnight events.
Having difficulty with pain control.
Having nausea, no vomiting. Currently n.p.o.
+flatus +BMs +voiding
Pt is OOB.
Objective Data
-
Vital Signs
Temp Pulse Resp BP Pulse Ox
98.4 F 84 15 128/67 94
10/19/23 07:20 10/19/23 08:26 10/19/23 07:20 10/19/23 08:26 10/19/23 07:20
Intake & Output
10/18/23 10/19/23 10/20/23
06:59 06:59 06:59
Intake Total 950 / 950 831 / 831
Output Total 1320 / 1320 1800 / 1800
Balance -370 / -370 -969 / -969
Intake:
Oral fluids 640 / 640 560 / 560
IV fluids (Total) 108 / 108
IV piggybacks 310 / 310 163 / 163
Output:
Urine, Cramer 1150 / 1150
Urine, Voided 1320 / 1320 650 / 650
Lab Results
10/19/23 06:06
10/19/23 06:06
Physical Exam
-
General: No Acute Distress and AOx3
HEENT: Grossly Normal
Abdomen: Soft, Distended (Mildly to moderately distended), Tender (Appropriately tender near incision), No Guarding and No Rebound
Skin: Warm and Dry
Wound: No Signs of Infection, No Skin Erythema and Other (Midline incision with janet intact, open to air, no drainage)
[2023-10-19] MEDS: OMNIPAQUE 50 ML PO (09:46)
[2023-10-19] MEDS: DILAUDID 0.5 MG IV ×3 (09:55→19:58)
--- NOTE | 2023-10-19 10:33 | W.PN.CARDCBS ---
Today's Communication / Plan
-
Hold PM IV lasix
Transition back to PO meds next 24 hrs
Cont post op care
Impression / Plan
-
.
PCP: Dr. Sivakumar Patel
Primary Tent Finisher: Dr. Garcia
Impression:
-Presentation with abd pain, N/V
-Acute colitis s/p R colectomy 10/13
-Post op ileus, improving
-Concern for acute on chronic HFpEF
-Hx Recovered CM: CM EF 15-20% by echo Jan 2020 with EF 30% by echo 04/20/19 with h/o recovered CM EF 65% by echo 05/2022, EF 53% by echo 07/20/23
-CAD
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
CABG with occluded QUIÑONES to LAD by cath 2019, but patent SVG seq to Diag-OM-PDA 02/2014
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
-PAD s/p right femoral endarterectomy and right iliac stenting 02/2016
-PAD s/p right SFA and popliteal FULL STACK DEVELOPER and stent 10/24/19
-possible TIA with noted L carotid stenosis s/p L CEA 03/03/23
-Paroxysmal Afib
-Chronic Eliquis OAC
-HTN
-Moderate to severe chronic obstructive pulmonary disease
-DM2 with Diabetic neuropathy
-Pulmonary HTN
-Hx prostate cancer s/p surgery 2007
-Medical marijuana use
-former smoker
CATH 2019: Left main and three-vessel [place] coronary total occlusions, patent sequential SVG to diagonal/OM/PDA with collaterals to LAD, and occluded QUIÑONES to LAD, anterolateral wall hypokinesis with mild LV dysfunction
Echo 08/2022: Mild LVH, mid to apical anterior and anteroseptal hypokinesis, EF 50%, bioprosthetic mitral valve with peak/mean gradients 10/6 mmHg, GASTON 1.5 cm�, trace MR, dilated left atrium, aortic sclerosis, normal right heart cardiac
Echo 07/20/2023: EF 53%, mild concentric LVH. Bovine mitral valve replacement well-seated peak/mean gradient 20/10 mmHg with MV area 1.4 cm�, moderate MS with mild to moderate MR. Mild TR with PAP 35 mmHg
Plan:
-Patient presents with abd pain, N/V. found by CTAP to have acute colitis s/p R colectomy 10/13/23. Post op ileus 10/16.
Cont post op ileus care as per surgery. Now on clears 10/18. Can resume oral meds and will do so next 24 hrs.
Cont post op care.
Cont Llasix 20 mg IV BID but hold PM dose given almost 1L negative and wt coming down. Posssible resume lasix oral outpt dosing AM 10/19. His outpt lasix dosing is lasix 40 mg PO BID. Wt is stable. Wt coming in was 166.
Try to maintain Is and Os equivalent.
He has prior hx of acute pulm edema in past as well as significant orthostasis, so would continue to watch fluid status, Is and Os and daily wts closely.
With long hx of orthostasis, if bp becomes low can add midodrine.
Continue Toprol.
Remains SR with prior brief atrial tachycardia episodes
Continue IV heparin and eventual transition back to oral anticoagulation once ok with surgery.
Progress Note - Tent Finisher
Subjective
Date of Service: October 19, 2023
Pt seen and examined. No chest pain or shortness of breath.
Objective
Labs:
10/19/23 06:06
10/19/23 06:06
Labs
Hgb 9.9 g/dL (13.0-18.0) L 10/19/23 06:06
Hct 29.4 % (39.0-52.0) L 10/19/23 06:06
Plt Count 328 10^3/uL (130-400) D 10/19/23 06:06
APTT 55.2 Sec (23.4-35.0) H 10/19/23 06:06
Sodium 137 mmol/L (135-145) 10/19/23 06:06
Potassium 4.5 mmol/L (3.5-5.1) 10/19/23 06:06
BUN 33 mg/dl (9-20) H 10/19/23 06:06
Creatinine 0.9 mg/dL (0.7-1.3) 10/19/23 06:06
Glucose 121 mg/dl (70-99) H 10/19/23 06:06
Vital Signs and I&O:
Vital Signs
Temp Pulse Resp BP Pulse Ox
98.4 F 84 15 128/67 94
10/19/23 07:20 10/19/23 08:26 10/19/23 07:20 10/19/23 08:26 10/19/23 07:20
Vital Signs
Temp Pulse Resp BP Pulse Ox
98.4 F 84 15 128/67 94
10/19/23 07:20 10/19/23 08:26 10/19/23 07:20 10/19/23 08:26 10/19/23 07:20
Intake & Output
10/17/23 10/18/23 10/19/23 10/20/23
06:59 06:59 06:59 06:59
Intake Total 1870 / 1870 950 / 950 831 / 831
Output Total 2200 / 2200 1320 / 1320 1800 / 1800
Balance -330 / -330 -370 / -370 -969 / -969
Physical Exam
Physical Exam
General: No acute distress, AAOX3
Neck: Negative JVD
Heart: Regular, Negative S3 positive S1/S2, Negative S4, No murmur
Lungs: CTA b/l, negative wheezes/rales/rhonchi
Abd: Positive BS, NT/ND, neg rebound/rigidity/guarding
Ext: Negative cyanosis/clubbing/edema
Neuro: nonfocal
[2023-10-19] MEDS: HEPARIN 25000 UNITS/250 ML IV (11:04)
[2023-10-19 11:05] VITALS: BP 103/58
[2023-10-19] MEDS: NOVOLOG FLEXPEN-LOW RESISTANCE 1 UNITS SC (11:50)
[2023-10-19 11:52] LABS: Glucose - Point of Care 153 mg/dl (70-99)
[2023-10-19] MEDS: ZOSYN 50 IV ×2 (13:23→19:58)
--- NOTE | 2023-10-19 13:45 | W.PN.HOSP.TC ---
Today's Communication/Plan
-
ID cosnult
Procal in AM
cont heparin
Assessment / Plan
Assessment / Plan
73yo M with PMHx of HLD, CAD s/p PCI and CABG, HFrEF with recovered EF, bioprosthetic MVR, PAD s/p R femoral endarectomy and R SFA and stent, Hx of TIA, carotid stensois s/p L CEA, paroxysmal afib, HTN, pulmonary HTN, Hx of prostate CA, former
smoker came with nausea and vomiting, found ascending colitis on CT with concern for ischemic colitis, s/p R colectomy on 10/13
A/P:
#Colitis
s/p ex lap with hemicolectomy and primary anastomosis on 10/13
Worsening leukocytosis however no new acute fluid collection or abscess on CT on 10/19/23
Empiric Abx and follow Bcx
ColorectalSx follows
Stool Cx still pending, but poatient without BM
#Acute on chronic HFrEF
Recovered EF as of july 2023
Cardio follows
Lasix PRN
#Anemia of chronic disease
follow Hgb
#Paroxysmal Afib
#Pulmonary HTN
#HLD
#CAD sp CABG and falied PCI
#bioprosthetic MVR
#PAD s/p stenting
#Orthostatic hypotension
COnt home meds
COnt anticoag - heparing and switch back to eliquis when oral intake improving
#DM type 2 with neuropathy
Insulin SS< dm diet
Hold oral hypoglycemics
#Cholelithiasis without cholecystitis
Asymptomatic
DVT ppx hep drip
FUll code
I have spent at least 56min reviewing chart, test results, communication with consultants and direct patient care
Anticipated Discharge: > 48 hours
Subjective/Interval History
-
Date of Service: October 19, 2023
Objective Data
-
Labs:
Laboratory Results
10/19/23 10/19/23
06:06 13:30
WBC 20.2 H
Hgb 9.9 L
Hct 29.4 L
Plt Count 328 D
APTT 55.2 H Pending
Sodium 137
Potassium 4.5
Chloride 99
Carbon Dioxide 32 H
BUN 33 H
Creatinine 0.9
Glucose 121 H
Calcium 9.0
Vital Signs:
Vital Signs
Temp Pulse Resp BP Pulse Ox
98.2 F 86 15 103/58 96
10/19/23 11:05 10/19/23 11:09 10/19/23 11:05 10/19/23 11:09 10/19/23 11:05
I&O
10/18/23 10/19/23 10/20/23
06:59 06:59 06:59
Intake Total 950 / 950 831 / 831
Output Total 1320 / 1320 1800 / 1800
Balance -370 / -370 -969 / -969
Review of Systems
-
History Source: Patient
All other systems: Reviewed and negative
Constitutional: Denies Fever
Physical Exam
-
General: No Apparent Distress
HEENT: Normocephalic
Respiratory: Clear to Auscultation
Cardiac: Regular Rhythm
GI: Soft and Tender; Negative Distended
Musculoskeletal: No Clubbing, No Cyanosis and No Edema
Skin: Warm
Neuro: Awake, Alert, Oriented and AO x 3
Psych: Calm
--- NOTE | 2023-10-19 13:50 | CON.ID ---
Consultation
-
Date/Time Consultation Requested: 10/19/2023 1340
Date/Time Consultation Performed: 10/19/2023 1350
Requesting Provider: Dr. Kishan Walker
Performing Provider: Dr. Hilda Landeros
Reason for Consultation: Leukocytosis
Chief Complaint / Past History
Chief Complaint
Abdominal pain
History of Present Illness
73-year-old male with history diabetes mellitus, chronic heart failure, mitral valve replacement, CAD status post CABG, PAD, left CEA, chronic pain who presented to the hospital on October 11 with 2-day history of worsening right-sided abdominal pain.
No diarrhea. Positive nausea and vomiting. Positive chills. In the ER CAT scan of the abdomen pelvis showed ascending: Colitis. He was started on cefepime and metronidazole. Initially he was under observation. However his white count continued
to rise and peaked at 30. Also had fever of 101. Decision was made to go to the OR on October 12 status post expiratory laparotomy, right hemicolectomy. The pathology subsequently showed ischemic changes with early necrosis. Postop his white count
trended down to 14.7. He was on a liquid diet. However he was unable to tolerate the diet with nausea and vomiting. December 16, abdominal x-ray showed gaseous distention of small bowel and large bowel consistent with ileus. His white count
started to trend up since October 16. Today he was made NPO. CT of the abdomen pelvis today without abscess or focal fluid collection. Surgery started Zosyn. Patient reports no bowel movement since hospitalization. Last bowel movement was 2 days
prior to admission. No flatus. No worsening abdominal pain. He has residual postop pain currently on narcotics. Cramer has been removed. No dysuria. No cough or shortness of breath. No sinus congestion. No sore throat. No chest pain. No
further nausea or vomiting.
Past History
Additional Past Medical History:
DM-II with Neuropathy
Chronic HFpEF
Chronic hypotension
COPD
Bioprosthetic MVR
CAD s/p CABG
Paroxysmal Atrial Fibrillation
PAD s/p RLE stent, s/p Bilateral Fem-Pop Bypass
Left CEA
Bladder Cancer s/p TURBT (07/2023)
Prostate Cancer s/p prostatectomy
Chronic Pain / Chronic Opioid Dependence
Left hallux amputation
Left shoulder surgery
Allergy History:
fish derived Allergy (Verified 10/12/23 12:10)
SEAFOOD-HIVES
Medications Reviewed: Yes
Current Antibiotics:
[ cefepime/metrondiazole 10/11 to 10/16].
Zosyn d1
Social History
Tobacco: Former Smoker
Alcohol: None
Drug: Marijuana (medical)
Personal:
Living: With Family
Family History
Family History: Not Pertinent
Review of Systems
Review of Systems
General: Chills and Change in Appetite
HEENT: Negative Stiff Neck, Sinus Problems, Headache or Pharyngitis
Cardiovascular: Negative Chest Pain, Dyspnea, Edema or Palpitations
Respiratory: Negative Dyspnea or Cough
Genital / Urological: Negative Dysuria or Flank Pain
Endocrine: Weakness
Neurological: Negative Headache or Dizziness
All systems: All other systems were reviewed and were negative
Vital Signs
Temp Pulse Resp BP Pulse Ox
98.2 F 86 15 103/58 96
10/19/23 11:05 10/19/23 11:09 10/19/23 11:05 10/19/23 11:09 10/19/23 11:05
Physical Exam
Physical Exam
Constitutional: No Acute Distress and Comfortable
Eyes: No Conjunctival Hemorrhage and Sclera Anicteric
Cardiovascular: Regular Rate and S1/S2
Pulmonary: Clear; Negative Wheezes, Rales, Rhonchi or Coarse
Gastrointestinal: Soft, Non Tender, Decreased Bowel Sounds and Other (incision closed and dry)
Genito-Urinary: Negative Cramer or CVA Tenderness
Extremities: Negative Edema
Skin: Negative Rash
Neurological: AO x 3; Negative Meningeal Signs
Lab / Diagnostic Study Results
10/19/23 06:06
10/19/23 06:06
Abs Immat Gran (auto) 0.4 10^3/uL (0-0.05) H 10/19/23 06:06
Absolute Neuts (auto) 15.1 10^3/uL (1.4-6.5) H 10/19/23 06:06
Absolute Lymphs (auto) 2.6 10^3/uL (1.2-3.4) 10/19/23 06:06
Absolute Monos (auto) 1.6 10^3/uL (0.1-0.6) H 10/19/23 06:06
Absolute Basos (auto) 0.1 10^3/uL (0-0.2) 10/19/23 06:06
Immature Gran % 1.8 % (0-0.5) H 10/19/23 06:06
Neutrophils % 73.4 % (42.2-75.2) 10/19/23 06:06
Lymphocytes % 12.4 % (20.5-51.1) L 10/19/23 06:06
Monocytes % 7.9 % (1.7-9.3) 10/19/23 06:06
Eosinophils % 3.9 % (0-6) 10/19/23 06:06
Basophils % 0.6 % (0-2) 10/19/23 06:06
Lactic Acid 2.1 mmol/L (0.7-2.0) H 10/12/23 17:17
Microbiology Results
Micro:
10/12/23 17:17 Blood Culture - Final
Blood/Venous No Growth - Final Report
10/12/23 17:17 Blood Culture - Final
Blood/Venous No Growth - Final Report
10/19/23 CT a/p: No acute abnormality in the abdomen or pelvis following right hemicolectomy. Trace free fluid in the right paracolic gutter along with minimal residual inflammatory changes from recent surgery. No evidence of abscess or drainable
fluid collection. No evidence of anastomotic leak.
10/15/23 CXR: Mild interstitial pulmonary edema with small right pleural effusion.
10/12/23 CT a/p: Acute colitis involving the ascending colon. No extraluminal fluid collection or free air. Findings are likely infectious/inflammatory. The SMA is markedly atherosclerotic, however the distal branches do appear patent.
Assessment / Plan
# Leukocytosis
- Suspect due to post-op ileus
- Afebrile
- No focal signs and symptoms of infectious etiology.
- Recommend observe off abx.
- Follow wbc.
# Ischemic colitis s/p right hemicolectomy 10/13/23.
- 10/19/23 CT a/p: no intra-abdominal abscess.
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
DM-II with Neuropathy
Chronic HFpEF
Chronic hypotension
COPD
Bioprosthetic MVR
CAD s/p CABG
Paroxysmal Atrial Fibrillation
PAD s/p RLE stent, s/p Bilateral Fem-Pop Bypass
Left CEA
Bladder Cancer s/p TURBT (07/2023)
Prostate Cancer s/p prostatectomy
Chronic Pain / Chronic Opioid Dependence
Left hallux amputation
Left shoulder surgery
[2023-10-19 14:41] LABS: Urine Albumin Negative (Neg - Trace); Urine Bilirubin Negative (Negative); Urine Character Clear (Clear); Urine Color Yellow; Urine Glucose Negative (Negative); Urine Ketone 1+ (Negative); Urine Leukocyte Negative (Negative); Urine Nitrite Negative (Negative); Urine Occult Blood Negative (Negative); Urine Urobilinogen Negative (Neg - 1+)
[2023-10-19 15:08] VITALS: BP 109/53
[2023-10-19 15:54] LABS: APTT 158.4 Sec (23.4-35.0)
--- NOTE | 2023-10-19 16:27 | CM ---
NPO, IV/Lasix, ID following, On RA. Therapy following for rec of Home NN vs HH. .
[2023-10-19 16:59] LABS: Glucose - Point of Care 209 mg/dl (70-99)
[2023-10-19] MEDS: NOVOLOG FLEXPEN-LOW RESISTANCE 2 UNITS SC (17:00)
[2023-10-19 19:10] VITALS: BP 113/70
[2023-10-19 23:20] VITALS: BP 116/58
[2023-10-19 23:36] LABS: Glucose - Point of Care 134 mg/dl (70-99)
[2023-10-20] VITALS (8 sets, daily range): BP systolic 82–118; BP diastolic 42–65; PULSE 78; O2SAT 98; BMI 21.0
[2023-10-20] MEDS: NOVOLOG FLEXPEN-LOW RESISTANCE SC (00:03)
[2023-10-20 00:12] LABS: APTT 97.6 Sec (23.4-35.0)
[2023-10-20] MEDS: ZOSYN 50 IV (02:17)
[2023-10-20] MEDS: LOPRESSOR 3.125 MG IV ×4 (05:08→23:06)
[2023-10-20] MEDS: DILAUDID 1 MG IV (06:30)
[2023-10-20 06:32] LABS: Glucose - Point of Care 180 mg/dl (70-99)
[2023-10-20] MEDS: NOVOLOG FLEXPEN-LOW RESISTANCE 1 UNITS SC ×2 (06:32→17:31)
[2023-10-20 06:58] LABS: APTT 104.4 Sec (23.4-35.0)
[2023-10-20 07:02] LABS: % Basophils 0.7 % (0-2); % Eosinophils 4.4 % (0-6); % Immature Granulocytes 1.8 % (0-0.5); % Lymphocytes 18.4 % (20.5-51.1); % Monocytes 10.1 % (1.7-9.3); % Neutrophils 64.6 % (42.2-75.2); Absolute Basophils 0.1 10^3/uL (0-0.2); Absolute Eosinophils 0.6 10^3/uL (0-0.7); Absolute Immature Granulocytes 0.3 10^3/uL (0-0.05); Absolute Lymphocytes 2.6 10^3/uL (1.2-3.4); Absolute Monocytes 1.4 10^3/uL (0.1-0.6); Absolute Neutrophils 9.2 10^3/uL (1.4-6.5); Hematocrit 26.5 % (39.0-52.0); Mean Corpuscular Hgb 28.4 pg (27.0-31.0); Mean Corpuscular Volume 83.6 fL (80.0-94.0); Mean Platelet Volume 10.9 fL (7.4-10.4); Nucleated Red Blood Cells % 0 % (-); Platelet Count 289 10^3/uL (130-400); Red Blood Cell Count 3.17 10^6/uL (4.70-6.10); Red Cell Dist. Width 15.2 % (11.5-14.5); White Blood Cell Count 14.2 10^3/uL (4.8-10.8)
[2023-10-20 07:29] LABS: ALT (SGPT) 17 U/L (0-50); AST (SGOT) 31 U/L (17-59); Albumin 3.2 g/dl (3.5-5.0); Alkaline Phosphatase 82 U/L (38-126); Blood Urea Nitrogen 29 mg/dl (9-20); Calcium 8.5 mg/dl (8.4-10.2); Carbon Dioxide 31 mmol/L (22-30); Chloride 99 mmol/L (98-107); Estimated Creatinine Clearance 70 ml/min; Glucose 116 mg/dl (70-99); Potassium 4.1 mmol/L (3.5-5.1); Sodium 135 mmol/L (135-145); Total Bilirubin 0.6 mg/dl (0.2-1.3); Total Protein 5.7 g/dl (6.3-8.2); eGFR > 60.00
--- NOTE | 2023-10-20 08:30 | W.PN.CRS1 ---
Today's Communication / Plan
-
Clears.
Stop antibiotics.
Assessment/Plan
-
POD 7.
1. no nausea with flatus. Trial clears.
2. WBC improving. ID input noted--d/maya antibiotics per ID recommendation.
3. OOB.
4. continue other measures.
Subjective Data
Procedure
10/13/2023-Exploratory laparotomy, right hemicolectomy, TAP block
Subjective Data
Date of Service: October 20, 2023
No nausea this am.
Hungry.
Flatus.
Objective Data
-
Vital Signs
Temp Pulse Resp BP Pulse Ox
98 F 75 16 114/63 97
10/20/23 07:19 10/20/23 07:19 10/20/23 07:19 10/20/23 07:19 10/20/23 07:19
Intake & Output
10/19/23 10/20/23 10/21/23
06:59 06:59 06:59
Intake Total 831 / 831 376 / 376
Output Total 1800 / 1800 500 / 500
Balance -969 / -969 -124 / -124
Intake:
Oral fluids 560 / 560 120 / 120
IV fluids (Total) 108 / 108 106 / 106
IV piggybacks 163 / 163 150 / 150
Output:
Urine, Cramer 1150 / 1150
Urine, Voided 650 / 650 500 / 500
Lab Results
10/20/23 06:38
10/20/23 06:37
Physical Exam
-
General: No Acute Distress
Chest: Clear
Cardiovascular: Regular Rate & Rhythm
Abdomen: Soft, Non Distended and Tender (mild incisional)
Extremities: No Calf Tenderness
Incision: Clear, Dry, Intact and No Skin Erythema
[2023-10-20] MEDS: ZOSYN IV (08:37)
[2023-10-20] MEDS: LASIX 20 MG IV ×2 (08:38→16:41)
[2023-10-20] MEDS: MS CONTIN (EXTENDED RELEASE) 15 MG PO ×3 (08:41→22:01)
[2023-10-20] MEDS: NEURONTIN 600 MG PO ×3 (08:41→22:01)
[2023-10-20] MEDS: FLUSH (NSS) 2 FLUSH IV (08:41)
--- NOTE | 2023-10-20 09:23 | W.PN.HOSP.TC ---
Today's Communication/Plan
-
observe off Abx
Diet advance as per GenSx
Plan to switch to Eliquis when ok by GenSx
Assessment / Plan
Assessment / Plan
73yo M with PMHx of HLD, CAD s/p PCI and CABG, HFrEF with recovered EF, bioprosthetic MVR, PAD s/p R femoral endarterectomy and R SFA and stent, Hx of TIA, carotid stensois s/p L CEA, paroxysmal afib, HTN, pulmonary HTN, Hx of prostate CA, former
smoker came with nausea and vomiting, found ascending colitis on CT with concern for ischemic colitis, s/p R colectomy on 10/13. Has persistent leukocytosis most likely 2/2 recent Sx
A/P:
#Colitis
s/p ex lap with hemicolectomy and primary anastomosis on 10/13 with persistent leukocytosis
Worsening leukocytosis however no new acute fluid collection or abscess on CT on 10/19/23
Bcx repeated, NTD
Procalcitonin low
ID recommends to follow off Abx
ColorectalSx follows
Stool Cx still pending, but poatient without BM
#Acute on chronic HFrEF
Recovered EF as of july 2023
Cardio follows
Lasix PRN
#Anemia of chronic disease
follow Hgb
#Paroxysmal Afib
#Pulmonary HTN
#HLD
#CAD sp CABG and falied PCI
#bioprosthetic MVR
#PAD s/p stenting
#Orthostatic hypotension
COnt home meds
COnt anticoag - heparing and switch back to eliquis when oral intake improving
#DM type 2 with neuropathy
Insulin SS< dm diet
Hold oral hypoglycemics
#Cholelithiasis without cholecystitis
Asymptomatic
DVT ppx hep drip
FUll code
I have spent at least 36min reviewing chart, test results, communication with consultants and direct patient care
Anticipated Discharge: > 48 hours
Subjective/Interval History
-
Date of Service: October 20, 2023
Objective Data
-
Labs:
Laboratory Results
10/19/23 10/20/23 10/20/23
23:36 06:36 06:37
WBC
Hgb
Hct
Plt Count
APTT 97.6 H 104.4 H
Sodium 135
Potassium 4.1
Chloride 99
Carbon Dioxide 31 H
BUN 29 H
Creatinine 1.0
Glucose 116 H
Calcium 8.5
Total Bilirubin 0.6
AST 31
ALT 17
Alkaline Phosphatase 82
10/20/23
06:38
WBC 14.2 H
Hgb 9.0 L
Hct 26.5 L
Plt Count 289
APTT
Sodium
Potassium
Chloride
Carbon Dioxide
BUN
Creatinine
Glucose
Calcium
Total Bilirubin
AST
ALT
Alkaline Phosphatase
Vital Signs:
Vital Signs
Temp Pulse Resp BP Pulse Ox
98 F 75 16 114/63 97
10/20/23 07:19 10/20/23 07:19 10/20/23 07:19 10/20/23 07:19 10/20/23 07:19
I&O
10/19/23 10/20/23 10/21/23
06:59 06:59 06:59
Intake Total 831 / 831 376 / 376
Output Total 1800 / 1800 500 / 500
Balance -969 / -969 -124 / -124
Review of Systems
-
History Source: Patient
All other systems: Reviewed and negative
Physical Exam
-
General: No Apparent Distress
HEENT: Normocephalic and Atraumatic
Respiratory: Clear to Auscultation
Cardiac: Regular Rhythm
GI: Soft, Nontender and Other (well healing midline scar with janet)
Musculoskeletal: No Clubbing, No Cyanosis and No Edema
Skin: Warm
Neuro: Awake, Alert, Oriented and AO x 3
Psych: Calm
--- NOTE | 2023-10-20 09:42 | W.PN.ID1 ---
Date of Service
Date of Service: October 20, 2023
Today's Communication
Observe off abx.
Assessment / Plan
# Leukocytosis due to post-op ileus
-trending down
- Afebrile
- No focal signs and symptoms of infectious etiology. UA neg.
- observe off abx.
- Continue supportive care
- Follow wbc.
# Ischemic colitis s/p right hemicolectomy 10/13/23.
- 10/19/23 CT a/p: no intra-abdominal abscess.
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
DM-II with Neuropathy
Chronic HFpEF
Chronic hypotension
COPD
Bioprosthetic MVR
CAD s/p CABG
Paroxysmal Atrial Fibrillation
PAD s/p RLE stent, s/p Bilateral Fem-Pop Bypass
Left CEA
Bladder Cancer s/p TURBT (07/2023)
Prostate Cancer s/p prostatectomy
Chronic Pain / Chronic Opioid Dependence
Left hallux amputation
Left shoulder surgery
Chief Complaint
-: Leukocytosis
Subjective / Review of Systems
Passing flatus today.
Vital Signs / Physical Exam
Vital Signs
Vital Signs
Temp Pulse Resp BP Pulse Ox
98 F 75 16 114/63 97
10/20/23 07:19 10/20/23 07:19 10/20/23 07:19 10/20/23 07:19 10/20/23 07:19
Physical Exam
Constitutional: No Acute Distress and Comfortable
Pulmonary: Clear
Gastrointestinal: Soft, Non Tender, Non Distended, Normal Bowel Sounds and Other (Incision: janet intact, dry)
Extremities: Negative Edema
Neurological: AO x 3
Objective Data
Lab Data
Lab Results
10/20/23 06:38
10/20/23 06:37
APTT 104.4 Sec (23.4-35.0) H 10/20/23 06:36
Estimated Creat Clear 70 ml/min 10/20/23 06:37
Lactic Acid 2.1 mmol/L (0.7-2.0) H 10/12/23 17:17
Total Bilirubin 0.6 mg/dl (0.2-1.3) 10/20/23 06:37
AST 31 U/L (17-59) 10/20/23 06:37
ALT 17 U/L (0-50) 10/20/23 06:37
Alkaline Phosphatase 82 U/L (38-126) 10/20/23 06:37
Most recent labs reviewed.
Micro Results:
10/19/23 14:54 Blood Culture - Pending
Blood/Venous
10/12/23 17:17 Blood Culture - Final
Blood/Venous No Growth - Final Report
10/12/23 17:17 Blood Culture - Final
Blood/Venous No Growth - Final Report
10/19/23 CT a/p: No acute abnormality in the abdomen or pelvis following right hemicolectomy. Trace free fluid in the right paracolic gutter along with minimal residual inflammatory changes from recent surgery. No evidence of abscess or drainable
fluid collection. No evidence of anastomotic leak.
10/15/23 CXR: Mild interstitial pulmonary edema with small right pleural effusion.
10/12/23 CT a/p: Acute colitis involving the ascending colon. No extraluminal fluid collection or free air. Findings are likely infectious/inflammatory. The SMA is markedly atherosclerotic, however the distal branches do appear patent.
--- NOTE | 2023-10-20 10:07 | W.PN.CARDCBS ---
Addendum entered and electronically signed by Chris Garcia DO 10/20/23 11:59:
I saw and examined the patient.
The Photoengraving Printer's note was reviewed and I agree with the note.
Comment:
Plan:
Diet being advanced to clear liquids.
Likely transition to oral anticoagulation Toprol and Lasix tomorrow.
Continue to try to maintain a close and I's and O's. Monitor daily weights and creatinine.
Remains in sinus rhythm with prior short atrial tachycardia.
Original Note:
Today's Communication / Plan
-
trial of clear liquids
if tolerating, likely transition to po OAC, toprol, and lasix in AM
Impression / Plan
-
.
PCP: Dr. Sivakumar Patel
Primary Business Unit Leader: Dr. Garcia
Impression:
-Presentation with abd pain, N/V
-Acute colitis s/p R colectomy 10/13
-Post op ileus, improving
-Concern for acute on chronic HFpEF
-Hx Recovered CM: CM EF 15-20% by echo Jan 2020 with EF 30% by echo 04/20/19 with h/o recovered CM EF 65% by echo 05/2022, EF 53% by echo 07/20/23
-CAD
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
CABG with occluded QUIÑONES to LAD by cath 2019, but patent SVG seq to Diag-OM-PDA 02/2014
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
-PAD s/p right femoral endarterectomy and right iliac stenting 02/2016
-PAD s/p right SFA and popliteal RESEARCH NEUROPSYCHOLOGIST and stent 10/24/19
-possible TIA with noted L carotid stenosis s/p L CEA 03/03/23
-Paroxysmal Afib
-Chronic Eliquis OAC
-HTN
-Moderate to severe chronic obstructive pulmonary disease
-DM2 with Diabetic neuropathy
-Pulmonary HTN
-Hx prostate cancer s/p surgery 2007
-Medical marijuana use
-former smoker
CATH 2019: Left main and three-vessel [place] coronary total occlusions, patent sequential SVG to diagonal/OM/PDA with collaterals to LAD, and occluded QUIÑONES to LAD, anterolateral wall hypokinesis with mild LV dysfunction
Echo 08/2022: Mild LVH, mid to apical anterior and anteroseptal hypokinesis, EF 50%, bioprosthetic mitral valve with peak/mean gradients 10/6 mmHg, GASTON 1.5 cm�, trace MR, dilated left atrium, aortic sclerosis, normal right heart cardiac
Echo 07/20/2023: EF 53%, mild concentric LVH. Bovine mitral valve replacement well-seated peak/mean gradient 20/10 mmHg with MV area 1.4 cm�, moderate MS with mild to moderate MR. Mild TR with PAP 35 mmHg
Plan:
-Patient presents with abd pain, N/V. found by CTAP to have acute colitis s/p R colectomy 10/13/23. Post op ileus 10/16.
-he is feeling improved from bowel standpoint today. he states he is starting clears this AM. transition to po meds in next 24 hours if tolerates
-He has prior hx of acute pulm edema in past as well as significant orthostasis. currently on IV lasix 20mg BID, dose was held last night due to hypotension. he reported some wheezing about 1 hour ago which has resolved. he did receive IV lasix dose
this AM. weight lower than admission weight at 163 pounds however this is also likely to decreased appetite/adjusted diet post surgically
-remains in SR on review of tele overnight with 1 brief episode of atach. currently on IV lopressor, transition back to po toprol as able
-Continue IV heparin and eventual transition back to oral anticoagulation once ok with surgery.
Progress Note - Business Unit Leader
Subjective
Date of Service: October 20, 2023
abd pain well controlled. states breathing presently stable.
Objective
Labs:
10/20/23 06:38
10/20/23 06:37
Labs
Hgb 9.0 g/dL (13.0-18.0) L 10/20/23 06:38
Hct 26.5 % (39.0-52.0) L 10/20/23 06:38
Plt Count 289 10^3/uL (130-400) 10/20/23 06:38
APTT 104.4 Sec (23.4-35.0) H 10/20/23 06:36
Sodium 135 mmol/L (135-145) 10/20/23 06:37
Potassium 4.1 mmol/L (3.5-5.1) 10/20/23 06:37
BUN 29 mg/dl (9-20) H 10/20/23 06:37
Creatinine 1.0 mg/dL (0.7-1.3) 10/20/23 06:37
Glucose 116 mg/dl (70-99) H 10/20/23 06:37
Vital Signs and I&O:
Vital Signs
Temp Pulse Resp BP Pulse Ox
98 F 75 16 114/63 97
10/20/23 07:19 10/20/23 07:19 10/20/23 07:19 10/20/23 07:19 10/20/23 07:19
Vital Signs
Temp Pulse Resp BP Pulse Ox
98 F 75 16 114/63 97
10/20/23 07:19 10/20/23 07:19 10/20/23 07:19 10/20/23 07:19 10/20/23 07:19
Intake & Output
10/18/23 10/19/23 10/20/23 10/21/23
07:59 07:59 07:59 07:59
Intake Total 950 / 950 831 / 831 376 / 376
Output Total 1320 / 1320 1800 / 1800 500 / 500
Balance -370 / -370 -969 / -969 -124 / -124
Physical Exam
Physical Exam
GEN: No distress, awake, alert, oriented x3
HEENT: supple, anicteric, mmm, eomi
LUNGS: few wheezes LLB
CV: Reg, S1/S2, 2/6 murmur
EXT: No cyanosis, clubbing, edema
NEURO: Gross non-focal
SKIN: Warm, pink, dry. No rash. abd incision c/d/i, janet in place
[2023-10-20 13:08] LABS: Glucose - Point of Care 225 mg/dl (70-99)
[2023-10-20] MEDS: HEPARIN 25000 UNITS/250 ML IV (13:16)
[2023-10-20] MEDS: NOVOLOG FLEXPEN-LOW RESISTANCE 2 UNITS SC (13:21)
--- NOTE | 2023-10-20 14:27 | CM ---
Advanced to clear liquids, IV/Lasix. Therapy recommending HH PT/OT. Will get preference.
[2023-10-20 17:22] LABS: Glucose - Point of Care 177 mg/dl (70-99)
[2023-10-20 21:24] LABS: Glucose - Point of Care 173 mg/dl (70-99)
[2023-10-21] VITALS (7 sets, daily range): BP systolic 91–134; BP diastolic 49–73; BMI 21.3
[2023-10-21] MEDS: LOPRESSOR 3.125 MG IV (04:51)
[2023-10-21 06:53] LABS: % Basophils 0.6 % (0-2); % Immature Granulocytes 1.6 % (0-0.5); % Lymphocytes 17.5 % (20.5-51.1); % Monocytes 9.9 % (1.7-9.3); % Neutrophils 66.4 % (42.2-75.2); Absolute Basophils 0.1 10^3/uL (0-0.2); Absolute Eosinophils 0.5 10^3/uL (0-0.7); Absolute Immature Granulocytes 0.2 10^3/uL (0-0.05); Absolute Lymphocytes 2.2 10^3/uL (1.2-3.4); Absolute Monocytes 1.3 10^3/uL (0.1-0.6); Absolute Neutrophils 8.4 10^3/uL (1.4-6.5); Hematocrit 23.9 % (39.0-52.0); Mean Corp Hgb Conc. 33.5 g/dL (33.0-37.0); Mean Corpuscular Hgb 27.3 pg (27.0-31.0); Mean Corpuscular Volume 81.6 fL (80.0-94.0); Mean Platelet Volume 11.1 fL (7.4-10.4); Nucleated Red Blood Cells % 0 % (-); Platelet Count 301 10^3/uL (130-400); Red Blood Cell Count 2.93 10^6/uL (4.70-6.10); Red Cell Dist. Width 15.5 % (11.5-14.5); White Blood Cell Count 12.6 10^3/uL (4.8-10.8)
[2023-10-21 07:00] LABS: APTT 91.7 Sec (23.4-35.0)
[2023-10-21 07:28] LABS: ALT (SGPT) 15 U/L (0-50); AST (SGOT) 24 U/L (17-59); Albumin 3.1 g/dl (3.5-5.0); Alkaline Phosphatase 79 U/L (38-126); Blood Urea Nitrogen 21 mg/dl (9-20); Calcium 8.3 mg/dl (8.4-10.2); Carbon Dioxide 31 mmol/L (22-30); Chloride 99 mmol/L (98-107); Estimated Creatinine Clearance 78 ml/min; Glucose 113 mg/dl (70-99); Potassium 3.7 mmol/L (3.5-5.1); Sodium 135 mmol/L (135-145); Total Bilirubin 0.4 mg/dl (0.2-1.3); Total Protein 5.5 g/dl (6.3-8.2); eGFR > 60.00
[2023-10-21 07:49] LABS: Glucose - Point of Care 140 mg/dl (70-99)
[2023-10-21] MEDS: NOVOLOG FLEXPEN-LOW RESISTANCE SC (07:51)
[2023-10-21] MEDS: ELIQUIS 5 MG PO ×2 (08:07→20:34)
[2023-10-21] MEDS: MS CONTIN (EXTENDED RELEASE) 15 MG PO ×3 (08:08→21:18)
[2023-10-21] MEDS: NEURONTIN 600 MG PO ×3 (08:08→21:18)
[2023-10-21] MEDS: LASIX 20 MG IV (08:12)
--- NOTE | 2023-10-21 08:31 | W.PN.CRS1 ---
Today's Communication / Plan
-
As below
Assessment/Plan
-
73-year-old male with PMH of CAD s/p CABG/MVR, CHF, A-fib (on Eliquis), PVD (s/p left first toe amp, left CEA), DM, COPD, HTN, HLD, left foot drop, bladder cancer s/p TURBT, prostate cancer s/p prostatectomy who presents with 2 days of right-sided
abdominal pain associated with 1 day of shortness of breath and nausea/vomiting x 1. This is never happened to him before. He has been constipated since Thursday, denies any diarrhea or blood per rectum. His last colonoscopy was in [address] Silva,
which had a poor prep, 5 mm rectal polyp and internal hemorrhoids. In the ED, WBC 18.5, BNP 3520, UA negative, lactate 2.1, AFVSS, CT showing ascending colitis more likely infectious/inflammatory versus ischemic. He was admitted with IV
antibiotics. However, he developed worsening leukocytosis and fever with worsening abdominal pain, concerning for threatened bowel.
POD 8 ex lap, right hemicolectomy with primary anastomosis and tap block
-no IntraOp issues with hemodynamics; received 1 L fluids, EBL 75; path- concern for ischemic colitis
-C/b delayed return of bowel function
AFVSS
WBC 12.6 from 18.6, Hb 8.0 from 9.0, Cr 0.9
�Segmental colitis of the ascending colon; s/p resection; path- concerning for early ischemic changes
�Appreciate GI; signed off
�Advance to full liquids, okay for p.o. meds
� Continue pain control
�Continue long-acting pain regimen; continue standing Tylenol and Dilaudid as needed for breakthrough
� Cont hep gtt; trend Hb daily
- Strict I/Os
-cont lasix per primary/cards
�Appreciate ID; monitor off antibiotics; leukocytosis improving
� Appreciate cardiology for postoperative care of cardiac comorbidities
� Appreciate hospitalist
Subjective Data
Procedure
10/13/2023-Exploratory laparotomy, right hemicolectomy, TAP block
Subjective Data
Date of Service: October 21, 2023
No overnight events.
Pain better controlled.
Denies nausea/vomiting. Tolerating clears
+flatus -BMs +voiding
Pt was OOB.
Objective Data
-
Vital Signs
Temp Pulse Resp BP Pulse Ox
98.4 F 75 14 132/56 97
10/21/23 07:12 10/21/23 08:12 10/21/23 07:12 10/21/23 08:12 10/21/23 07:12
Intake & Output
10/20/23 10/21/23 10/22/23
06:59 06:59 06:59
Intake Total 376 / 376 1260 / 1260
Output Total 500 / 500 700 / 700
Balance -124 / -124 560 / 560
Intake:
Oral fluids 120 / 120 1260 / 1260
IV fluids (Total) 106 / 106
IV piggybacks 150 / 150
Output:
Urine, Voided 500 / 500 700 / 700
Other:
Number of approximated MODERATE 3
amounts of urine
Lab Results
10/21/23 05:46
10/21/23 05:46
Physical Exam
-
General: No Acute Distress and AOx3
HEENT: Grossly Normal
Abdomen: Soft, Distended (Minimally to moderately distended, improved from yesterday), Tender (Appropriately tender, somewhat in the RLQ), No Guarding and No Rebound
Neurological: No Motor Deficits
Skin: Warm and Dry
Wound: No Signs of Infection, Dressing in Place (With janet, open to air) and No Skin Erythema
--- NOTE | 2023-10-21 10:25 | W.PN.CARDCBS ---
Addendum entered and electronically signed by Chris Garcia DO 10/21/23 13:38:
I saw and examined the patient.
The Rfid Specialist's note was reviewed and I agree with the note.
Comment:
Plan:
Continues to improve. Tolerating diet.
Continue postop care, advance diet as able.
Transition to oral medications.
Continue Eliquis.
Continue Toprol.
Transition back to outpatient Lasix 40 mg p.o. twice daily
Will arrange outpatient cardiac follow-up.
Original Note:
Today's Communication / Plan
-
transition to po meds
advance diet/post op care
Impression / Plan
-
.
PCP: Dr. Sivakumar Patel
Primary Finger Lift Operator: Dr. Garcia
Impression:
-Presentation with abd pain, N/V
-Acute colitis s/p R colectomy 10/13
-Post op ileus, improving
-Concern for acute on chronic HFpEF
-Hx Recovered CM: CM EF 15-20% by echo Jan 2020 with EF 30% by echo 04/20/19 with h/o recovered CM EF 65% by echo 05/2022, EF 53% by echo 07/20/23
-CAD
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
CABG with occluded QUIÑONES to LAD by cath 2019, but patent SVG seq to Diag-OM-PDA 02/2014
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
-PAD s/p right femoral endarterectomy and right iliac stenting 02/2016
-PAD s/p right SFA and popliteal FIRE PRODUCTION OPERATOR and stent 10/24/19
-possible TIA with noted L carotid stenosis s/p L CEA 03/03/23
-Paroxysmal Afib
-Chronic Eliquis OAC
-HTN
-Moderate to severe chronic obstructive pulmonary disease
-DM2 with Diabetic neuropathy
-Pulmonary HTN
-Hx prostate cancer s/p surgery 2007
-Medical marijuana use
-former smoker
CATH 2019: Left main and three-vessel enterprise coronary total occlusions, patent sequential SVG to diagonal/OM/PDA with collaterals to LAD, and occluded QUIÑONES to LAD, anterolateral wall hypokinesis with mild LV dysfunction
Echo 08/2022: Mild LVH, mid to apical anterior and anteroseptal hypokinesis, EF 50%, bioprosthetic mitral valve with peak/mean gradients 10/6 mmHg, GASTON 1.5 cm�, trace MR, dilated left atrium, aortic sclerosis, normal right heart cardiac
Echo 07/20/2023: EF 53%, mild concentric LVH. Bovine mitral valve replacement well-seated peak/mean gradient 20/10 mmHg with MV area 1.4 cm�, moderate MS with mild to moderate MR. Mild TR with PAP 35 mmHg
Plan:
-Patient presents with abd pain, N/V. found by CTAP to have acute colitis s/p R colectomy 10/13/23. Post op ileus 10/16.
-he is tolerating full liquids
-he has been transitioned from IV heparin back to OP eliquis.
-transition IV lopressor to po toprol 12.5mg daily, may uptitrate as able. in SR with 2 brief episodes of afib vs atach on review of tele
-reports breathing is good this morning. will transition IV lasix back to FIRE PRODUCTION OPERATOR lasix 40mg BID.
-continue post op care
-will arrange OP cardiac follow up
Progress Note - Finger Lift Operator
Subjective
Date of Service: October 21, 2023
reports breathing is good. abd pain well controlled
Objective
Labs:
10/21/23 05:46
10/21/23 05:46
Labs
Hgb 8.0 g/dL (13.0-18.0) L 10/21/23 05:46
Hct 23.9 % (39.0-52.0) L 10/21/23 05:46
Plt Count 301 10^3/uL (130-400) 10/21/23 05:46
APTT 91.7 Sec (23.4-35.0) H 10/21/23 05:46
Sodium 135 mmol/L (135-145) 10/21/23 05:46
Potassium 3.7 mmol/L (3.5-5.1) 10/21/23 05:46
BUN 21 mg/dl (9-20) H 10/21/23 05:46
Creatinine 0.9 mg/dL (0.7-1.3) 10/21/23 05:46
Glucose 113 mg/dl (70-99) H 10/21/23 05:46
Vital Signs and I&O:
Vital Signs
Temp Pulse Resp BP Pulse Ox
98.4 F 75 14 132/56 97
10/21/23 07:12 10/21/23 08:12 10/21/23 07:12 10/21/23 08:12 10/21/23 07:12
Vital Signs
Temp Pulse Resp BP Pulse Ox
98.4 F 75 14 132/56 97
10/21/23 07:12 10/21/23 08:12 10/21/23 07:12 10/21/23 08:12 10/21/23 07:12
Intake & Output
10/19/23 10/20/23 10/21/23 10/22/23
07:59 07:59 07:59 07:59
Intake Total 831 / 831 376 / 376 1260 / 1260
Output Total 1800 / 1800 500 / 500 700 / 700
Balance -969 / -969 -124 / -124 560 / 560
Physical Exam
Physical Exam
GEN: No distress, awake, alert, oriented x3
HEENT: supple, anicteric, mmm, eomi
LUNGS: CTA B/L, no wheezes/rales
CV: Reg, S1/S2, 2/6 murmur
EXT: No cyanosis, clubbing, edema
NEURO: Gross non-focal
SKIN: Warm, pink, dry. No rash
[2023-10-21] MEDS: ROXICODONE 10 MG PO (10:51)
[2023-10-21] MEDS: TOPROL XL 12.5 MG PO (10:53)
--- NOTE | 2023-10-21 10:54 | W.PN.HOSP.TC ---
Today's Communication/Plan
-
advance diet as tolerated
switched to Eliquis
Cardio switched to toprol
Assessment / Plan
Assessment / Plan
73yo M with PMHx of HLD, CAD s/p PCI and CABG, HFrEF with recovered EF, bioprosthetic MVR, PAD s/p R femoral endarterectomy and R SFA and stent, Hx of TIA, carotid stensois s/p L CEA, paroxysmal afib, HTN, pulmonary HTN, Hx of prostate CA, former
smoker came with nausea and vomiting, found ascending colitis on CT with concern for ischemic colitis, s/p R colectomy on 10/13. Has persistent leukocytosis most likely 2/2 recent Sx
A/P:
#Colitis
s/p ex lap with hemicolectomy and primary anastomosis on 10/13 with persistent leukocytosis
Worsening leukocytosis however no new acute fluid collection or abscess on CT on 10/19/23
Bcx repeated, NTD
Procalcitonin low
ID recommends to follow off Abx
ColorectalSx follows
Stool Cx still pending, but poatient without BM
#Acute on chronic HFrEF
Recovered EF as of july 2023
Cardio follows
Lasix PRN
#Anemia of chronic disease
follow Hgb
#Paroxysmal Afib
#Pulmonary HTN
#HLD
#CAD sp CABG and falied PCI
#bioprosthetic MVR
#PAD s/p stenting
#Orthostatic hypotension
COnt home meds
COnt anticoag - heparin and switched back to eliquis on 10/21/23
#DM type 2 with neuropathy
Insulin SS< dm diet
Hold oral hypoglycemics
#Cholelithiasis without cholecystitis
Asymptomatic
DVT ppx hep drip
FUll code
I have spent at least 36min reviewing chart, test results, communication with consultants and direct patient care
Anticipated Discharge: 24 - 48 hours
Subjective/Interval History
-
Date of Service: October 21, 2023
Objective Data
-
Labs:
Laboratory Results
10/21/23
05:46
WBC 12.6 H
Hgb 8.0 L
Hct 23.9 L
Plt Count 301
APTT 91.7 H
Sodium 135
Potassium 3.7
Chloride 99
Carbon Dioxide 31 H
BUN 21 H
Creatinine 0.9
Glucose 113 H
Calcium 8.3 L
Total Bilirubin 0.4
AST 24
ALT 15
Alkaline Phosphatase 79
Vital Signs:
Vital Signs
Temp Pulse Resp BP Pulse Ox
98.4 F 84 14 117/52 97
10/21/23 07:12 10/21/23 10:53 10/21/23 07:12 10/21/23 10:53 10/21/23 07:12
I&O
10/20/23 10/21/23 10/22/23
06:59 06:59 06:59
Intake Total 376 / 376 1260 / 1260
Output Total 500 / 500 700 / 700
Balance -124 / -124 560 / 560
Review of Systems
-
History Source: Patient
All other systems: Reviewed and negative
Physical Exam
-
General: Well Developed, Well Nourished and No Apparent Distress
HEENT: Normocephalic
Respiratory: Clear to Auscultation; Negative Wheezes, Rales or Rhonchi
Cardiac: Regular Rhythm
GI: Soft, Nontender and Nondistended
Genito-urinary: No Costovertebral Tender
Musculoskeletal: No Clubbing, No Cyanosis and No Edema
Skin: Warm
Neuro: Awake, Alert, Oriented and AO x 3
Psych: Calm
[2023-10-21 11:33] LABS: Glucose - Point of Care 239 mg/dl (70-99)
[2023-10-21] MEDS: NOVOLOG FLEXPEN-LOW RESISTANCE 2 UNITS SC ×2 (12:08→17:20)
--- NOTE | 2023-10-21 13:27 | W.PN.ID1 ---
Date of Service
Date of Service: October 21, 2023
Today's Communication
Observe off abx.
Assessment / Plan
# Leukocytosis due to post-op ileus, both resolving
- observe off abx.
# Ischemic colitis s/p right hemicolectomy 10/13/23.
- 10/19/23 CT a/p: no intra-abdominal abscess.
# Conditions SOLAR PHOTOVOLTAIC CREW LEAD
DM-II with Neuropathy
Chronic HFpEF
Chronic hypotension
COPD
Bioprosthetic MVR
CAD s/p CABG
Paroxysmal Atrial Fibrillation
PAD s/p RLE stent, s/p Bilateral Fem-Pop Bypass
Left CEA
Bladder Cancer s/p TURBT (07/2023)
Prostate Cancer s/p prostatectomy
Chronic Pain / Chronic Opioid Dependence
Left hallux amputation
Left shoulder surgery
Chief Complaint
-: Leukocytosis
Subjective / Review of Systems
Tolerating po's.
Vital Signs / Physical Exam
Vital Signs
Vital Signs
Temp Pulse Resp BP Pulse Ox
98.1 F 88 14 91/50 98
10/21/23 11:48 10/21/23 11:48 10/21/23 11:48 10/21/23 11:48 10/21/23 11:48
Physical Exam
Constitutional: No Acute Distress
Pulmonary: Clear
Gastrointestinal: Soft, Non Tender, Non Distended and Normal Bowel Sounds
Objective Data
Lab Data
Lab Results
10/21/23 05:46
10/21/23 05:46
APTT 91.7 Sec (23.4-35.0) H 10/21/23 05:46
Estimated Creat Clear 78 ml/min 10/21/23 05:46
Lactic Acid 2.1 mmol/L (0.7-2.0) H 10/12/23 17:17
Total Bilirubin 0.4 mg/dl (0.2-1.3) 10/21/23 05:46
AST 24 U/L (17-59) 10/21/23 05:46
ALT 15 U/L (0-50) 10/21/23 05:46
Alkaline Phosphatase 79 U/L (38-126) 10/21/23 05:46
Most recent labs reviewed.
Micro Results:
10/19/23 14:54 Blood Culture - Preliminary
Blood/Venous No Growth in 24 hours- Final report to follow
10/12/23 17:17 Blood Culture - Final
Blood/Venous No Growth - Final Report
10/12/23 17:17 Blood Culture - Final
Blood/Venous No Growth - Final Report
10/19/23 CT a/p: No acute abnormality in the abdomen or pelvis following right hemicolectomy. Trace free fluid in the right paracolic gutter along with minimal residual inflammatory changes from recent surgery. No evidence of abscess or drainable
fluid collection. No evidence of anastomotic leak.
10/15/23 CXR: Mild interstitial pulmonary edema with small right pleural effusion.
10/12/23 CT a/p: Acute colitis involving the ascending colon. No extraluminal fluid collection or free air. Findings are likely infectious/inflammatory. The SMA is markedly atherosclerotic, however the distal branches do appear patent.
--- NOTE | 2023-10-21 14:41 | CM ---
Discharge Plan of Care: Home with HH, VN, PT/OT.
[2023-10-21] MEDS: LASIX 40 MG PO (15:06)
[2023-10-21] MEDS: ProAmatine 5 MG PO (15:10)
[2023-10-21 17:12] LABS: Glucose - Point of Care 210 mg/dl (70-99)
[2023-10-21 21:26] LABS: Glucose - Point of Care 234 mg/dl (70-99)
[2023-10-22] VITALS (8 sets, daily range): BP systolic 94–132; BP diastolic 49–60; O2SAT 100; BMI 21.1
--- NOTE | 2023-10-22 04:01 | PTCARENOTE ---
assumed care at 0300 vitals wnl sinus 80's- pt refuses assessment
[2023-10-22 07:00] LABS: % Basophils 0.5 % (0-2); % Eosinophils 4.2 % (0-6); % Immature Granulocytes 1.6 % (0-0.5); % Lymphocytes 16.1 % (20.5-51.1); % Monocytes 10.5 % (1.7-9.3); % Neutrophils 67.1 % (42.2-75.2); Absolute Basophils 0.1 10^3/uL (0-0.2); Absolute Eosinophils 0.5 10^3/uL (0-0.7); Absolute Immature Granulocytes 0.2 10^3/uL (0-0.05); Absolute Lymphocytes 2.1 10^3/uL (1.2-3.4); Absolute Monocytes 1.4 10^3/uL (0.1-0.6); Absolute Neutrophils 8.7 10^3/uL (1.4-6.5); Hematocrit 23.9 % (39.0-52.0); Hemoglobin 7.7 g/dL (13.0-18.0); Mean Corp Hgb Conc. 32.2 g/dL (33.0-37.0); Mean Corpuscular Hgb 26.8 pg (27.0-31.0); Mean Corpuscular Volume 83.3 fL (80.0-94.0); Mean Platelet Volume 10.7 fL (7.4-10.4); Nucleated Red Blood Cells % 0 % (-); Platelet Count 315 10^3/uL (130-400); Red Blood Cell Count 2.87 10^6/uL (4.70-6.10); Red Cell Dist. Width 15.7 % (11.5-14.5)
[2023-10-22] MEDS: ELIQUIS 5 MG PO ×2 (07:42→20:05)
[2023-10-22] MEDS: MS CONTIN (EXTENDED RELEASE) 15 MG PO ×3 (07:42→22:23)
[2023-10-22] MEDS: TOPROL XL 12.5 MG PO (07:42)
[2023-10-22] MEDS: NEURONTIN 600 MG PO ×3 (07:42→22:23)
[2023-10-22] MEDS: LASIX 40 MG PO ×2 (07:43→15:07)
[2023-10-22] MEDS: NOVOLOG FLEXPEN-LOW RESISTANCE 1 UNITS SC (07:44)
[2023-10-22 07:45] LABS: Glucose - Point of Care 183 mg/dl (70-99)
[2023-10-22 07:55] LABS: ALT (SGPT) 18 U/L (0-50); AST (SGOT) 27 U/L (17-59); Albumin 3.2 g/dl (3.5-5.0); Alkaline Phosphatase 85 U/L (38-126); Blood Urea Nitrogen 16 mg/dl (9-20); Calcium 8.6 mg/dl (8.4-10.2); Carbon Dioxide 31 mmol/L (22-30); Chloride 96 mmol/L (98-107); Estimated Creatinine Clearance 78 ml/min; Glucose 105 mg/dl (70-99); Potassium 4.7 mmol/L (3.5-5.1); Sodium 134 mmol/L (135-145); Total Bilirubin 0.4 mg/dl (0.2-1.3); Total Protein 5.8 g/dl (6.3-8.2); eGFR > 60.00
--- NOTE | 2023-10-22 09:00 | W.PN.ID1 ---
Date of Service
Date of Service: October 22, 2023
Today's Communication
No need for abx.
Assessment / Plan
# Leukocytosis due to post-op ileus, both resolving
- Slight increase in WBC is not a concern.
- No need for abx.
# Ischemic colitis s/p right hemicolectomy 10/13/23.
- 10/19/23 CT a/p: no intra-abdominal abscess.
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
DM-II with Neuropathy
Chronic HFpEF
Chronic hypotension
COPD
Bioprosthetic MVR
CAD s/p CABG
Paroxysmal Atrial Fibrillation
PAD s/p RLE stent, s/p Bilateral Fem-Pop Bypass
Left CEA
Bladder Cancer s/p TURBT (07/2023)
Prostate Cancer s/p prostatectomy
Chronic Pain / Chronic Opioid Dependence
Left hallux amputation
Left shoulder surgery
Chief Complaint
-: Leukocytosis
Subjective / Review of Systems
Feels well. Tolerating diet. Had large BM last night.
Vital Signs / Physical Exam
Vital Signs
Vital Signs
Temp Pulse Resp BP Pulse Ox
97.8 F 86 14 104/53 99
10/22/23 07:03 10/22/23 07:43 10/22/23 07:03 10/22/23 07:43 10/22/23 07:03
Physical Exam
Constitutional: No Acute Distress and Comfortable
Pulmonary: Clear
Gastrointestinal: Soft, Non Tender, Non Distended and Normal Bowel Sounds
Neurological: AO x 3
Objective Data
Lab Data
Lab Results
10/22/23 05:29
10/22/23 05:29
APTT 91.7 Sec (23.4-35.0) H 08/07/24 05:46
Estimated Creat Clear 78 ml/min 10/22/23 05:29
Lactic Acid 2.1 mmol/L (0.7-2.0) H 10/12/23 17:17
Total Bilirubin 0.4 mg/dl (0.2-1.3) 10/22/23 05:29
AST 27 U/L (17-59) 10/22/23 05:29
ALT 18 U/L (0-50) 10/22/23 05:29
Alkaline Phosphatase 85 U/L (38-126) 10/22/23 05:29
Most recent labs reviewed.
Micro Results:
10/19/23 14:54 Blood Culture - Preliminary
Blood/Venous No Growth in 48 hours- Final report to follow
10/12/23 17:17 Blood Culture - Final
Blood/Venous No Growth - Final Report
10/12/23 17:17 Blood Culture - Final
Blood/Venous No Growth - Final Report
10/19/23 CT a/p: No acute abnormality in the abdomen or pelvis following right hemicolectomy. Trace free fluid in the right paracolic gutter along with minimal residual inflammatory changes from recent surgery. No evidence of abscess or drainable
fluid collection. No evidence of anastomotic leak.
10/15/23 CXR: Mild interstitial pulmonary edema with small right pleural effusion.
10/12/23 CT a/p: Acute colitis involving the ascending colon. No extraluminal fluid collection or free air. Findings are likely infectious/inflammatory. The SMA is markedly atherosclerotic, however the distal branches do appear patent.
--- NOTE | 2023-10-22 09:53 | W.PN.CRS1 ---
Today's Communication / Plan
-
Advance to regular diet.
Currently on eliquis.
Assessment/Plan
-
POD#9 s/p open right colectomy for ischemic colitis.
Progressing well.
Subjective Data
Procedure
10/13/2023-Exploratory laparotomy, right hemicolectomy, TAP block
Subjective Data
Date of Service: October 22, 2023
He is tolerating full liquids and having small, semi-formed bowel movements.
He denies any abdominal pain. He is using narcotics for his neuropathy and chronic pain.
Objective Data
-
Vital Signs
Temp Pulse Resp BP Pulse Ox
97.8 F 86 14 104/53 99
10/22/23 07:03 10/22/23 07:43 10/22/23 07:03 10/22/23 07:43 10/22/23 07:03
Intake & Output
10/21/23 10/22/23 10/23/23
06:59 06:59 06:59
Intake Total 1260 / 1260 960 / 960
Output Total 700 / 700
Balance 560 / 560 960 / 960
Intake:
Oral fluids 1260 / 1260 960 / 960
Output:
Urine, Voided 700 / 700
Other:
Number of approximated MODERATE 3 2 1
amounts of urine
Lab Results
10/22/23 05:29
10/22/23 05:29
Physical Exam
-
General: No Acute Distress
Abdomen: Soft, Non Distended and Non Tender
Extremities: No Calf Tenderness
Incision: Clear, Dry, Intact
--- NOTE | 2023-10-22 10:42 | W.PN.CARDCBS ---
Addendum entered and electronically signed by Arron Luna MD 10/22/23 12:38:
Patient offers no complaints
postop day 9 for exploratory lap with right hemicolectomy for ischemic bowel
PMH/PSH/SH/FH: Reviewed
Allergies: Seafood
Outpatient medications: Atorvastatin, Eliquis, furosemide 40 twice daily, glipizide, metformin, metoprolol ER 12.5 daily, midodrine 3 times daily as needed, morphine
Current medications: Atorvastatin 80 a day, gabapentin, metoprolol ER 12.5 mg daily, morphine extended release 15 3 times daily, insulin, apixaban 5 twice daily, furosemide 40 twice daily
ROS: Negative except as above
104/53, pulse 86, resp rate 14, afebrile, sats 99%, weight is 74.6 kg, head neck exam unremarkable, lungs are clear, cardiac exam with a soft systolic murmur at apex to base, abdomen benign, extremities without edema JVD okay, neuro nonfocal
White count 13, hemoglobin 7.7, BUN and creatinine are 16 and 0.9, CO2 is 31
Plan:
He appears stable from cardiac standpoint.
Short runs of atrial tachycardia on telemetry, would continue metoprolol
He is back on his oral medications. Volume status looks good.
He is now anticoagulated again.
Okay to proceed with discharge planning. No new recommendations. Would discharge on his admission cardiac regimen. He has a follow-up with Dr. Hayden.
Defer to surgery and hospitalist as to whether or not transfusion is required
We will sign off, please call if questions.
Original Note:
Today's Communication / Plan
-
follow hgb. continue eliquis
consider increasing toprol dose to 25mg daily
continue po lasix
post op care
Impression / Plan
-
.
PCP: Dr. Sivakumar Patel
Primary Communications Professional: Dr. Garcia
Impression:
-Presentation with abd pain, N/V
-Acute colitis s/p R colectomy 10/13
-Post op ileus, improving
-Concern for acute on chronic HFpEF
-Hx Recovered CM: CM EF 15-20% by echo Jan 2020 with EF 30% by echo 04/20/19 with h/o recovered CM EF 65% by echo 05/2022, EF 53% by echo 07/20/23
-CAD
s/p unsuccessful attempted PCI of LAD DATA ANALYSIS INTERN 03/07/16
CABG with occluded QUIÑONES to LAD by cath 2019, but patent SVG seq to Diag-OM-PDA 02/2014
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
-PAD s/p right femoral endarterectomy and right iliac stenting 02/2016
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
-possible TIA with noted L carotid stenosis s/p L CEA 03/03/23
-Paroxysmal Afib
-Chronic Eliquis OAC
-HTN
-Moderate to severe chronic obstructive pulmonary disease
-DM2 with Diabetic neuropathy
-Pulmonary HTN
-Hx prostate cancer s/p surgery 2007
-Medical marijuana use
-former smoker
CATH 2019: Left main and three-vessel crow coronary total occlusions, patent sequential SVG to diagonal/OM/PDA with collaterals to LAD, and occluded QUIÑONES to LAD, anterolateral wall hypokinesis with mild LV dysfunction
Echo 08/2022: Mild LVH, mid to apical anterior and anteroseptal hypokinesis, EF 50%, bioprosthetic mitral valve with peak/mean gradients 10/6 mmHg, GASTON 1.5 cm�, trace MR, dilated left atrium, aortic sclerosis, normal right heart cardiac
Echo 07/20/2023: EF 53%, mild concentric LVH. Bovine mitral valve replacement well-seated peak/mean gradient 20/10 mmHg with MV area 1.4 cm�, moderate MS with mild to moderate MR. Mild TR with PAP 35 mmHg
Plan:
-Patient presented with abd pain, N/V. found by CTAP to have acute colitis s/p R colectomy 10/13/23. Post op ileus 10/16, resolving and diet advancing
-he has been transitioned back to OP eliquis, lasix, and toprol
-hgb down slightly to 7.7. for now will plan to monitor, if continues to drop, may require transfusion.
-remains in SR with 2 brief episodes of afib vs atach on review of tele overnight. continue toprol, would consider increasing dose to 25mg daily if BP/HR can tolerate
-continue post op care
-will arrange OP cardiac follow up
Progress Note - Communications Professional
Subjective
Date of Service: October 22, 2023
reports with some abd pain after having bowel movement. reports no overt blood with BM. states breathing stable. tolerating diet
Objective
Labs:
10/22/23 05:29
10/22/23 05:29
Labs
Hgb 7.7 g/dL (13.0-18.0) L 10/22/23 05:29
Hct 23.9 % (39.0-52.0) L 10/22/23 05:29
Plt Count 315 10^3/uL (130-400) 10/22/23 05:29
APTT 91.7 Sec (23.4-35.0) H 10/21/23 05:46
Sodium 134 mmol/L (135-145) L 10/22/23 05:29
Potassium 4.7 mmol/L (3.5-5.1) D 10/22/23 05:29
BUN 16 mg/dl (9-20) 10/22/23 05:29
Creatinine 0.9 mg/dL (0.7-1.3) 10/22/23 05:29
Glucose 105 mg/dl (70-99) H 10/22/23 05:29
Vital Signs and I&O:
Vital Signs
Temp Pulse Resp BP Pulse Ox
97.8 F 86 14 104/53 99
10/22/23 07:03 10/22/23 07:43 10/22/23 07:03 10/22/23 07:43 10/22/23 07:03
Vital Signs
Temp Pulse Resp BP Pulse Ox
97.8 F 86 14 104/53 99
10/22/23 07:03 10/22/23 07:43 10/22/23 07:03 10/22/23 07:43 10/22/23 07:03
Intake & Output
10/20/23 10/21/23 10/22/23 10/23/23
07:59 07:59 07:59 07:59
Intake Total 376 / 376 1260 / 1260 960 / 960
Output Total 500 / 500 700 / 700
Balance -124 / -124 560 / 560 960 / 960
Physical Exam
Physical Exam
GEN: No distress, awake, alert, oriented x3
HEENT: supple, anicteric, mmm, eomi
LUNGS: few crackles RLB, no wheezes
CV: Reg, S1/S2, 2/6 murmur
EXT: No cyanosis, clubbing, edema
NEURO: Gross non-focal
SKIN: Warm, pink, dry. No rash. Abd incision with janet c/d/i
[2023-10-22 12:00] LABS: Glucose - Point of Care 217 mg/dl (70-99)
--- NOTE | 2023-10-22 12:16 | W.PN.HOSP.TC ---
Addendum entered and electronically signed by Kishan Worley MD 10/22/23 12:22:
Noted sequential drop in Hgb, currently no concern for ongoing bleeding by [facility]. Will watch Hgb trend closely
Original Note:
Today's Communication/Plan
-
PT/OT reassess today, labs in AM, possible d/c afterwards
Assessment / Plan
Assessment / Plan
73yo M with PMHx of HLD, CAD s/p PCI and CABG, HFrEF with recovered EF, bioprosthetic MVR, PAD s/p R femoral endarterectomy and R SFA and stent, Hx of TIA, carotid stensois s/p L CEA, paroxysmal afib, HTN, pulmonary HTN, Hx of prostate CA, former
smoker came with nausea and vomiting, found ascending colitis on CT with concern for ischemic colitis, s/p R colectomy on 10/13. Has persistent leukocytosis most likely 2/2 recent Sx, however started to resolve off Abx. Had BM and advanced to regular
diet on 10/22/23
A/P:
#Colitis, ischemic (as per pathology)
s/p ex lap with hemicolectomy and primary anastomosis on 10/13 with persistent leukocytosis
Worsening leukocytosis however no new acute fluid collection or abscess on CT on 10/19/23
Bcx repeated, NTD
Procalcitonin low
ID recommends to follow off Abx
[facility]orectal[facility] follows
Had normal postOP BM
#Acute on chronic HFrEF
Recovered EF as of july 2023
Cardio follows: medications restarted
Lasix PRN
#Anemia of chronic disease
follow Hgb
#Paroxysmal Afib
#Pulmonary HTN
#HLD
#CAD sp CABG and failed PCI
#bioprosthetic MVR
#PAD s/p stenting
#Orthostatic hypotension
COnt home meds
COnt anticoag - heparin and switched back to eliquis on 10/21/23
#DM type 2 with neuropathy
Insulin SS< dm diet
Hold oral hypoglycemics
#Cholelithiasis without cholecystitis
Asymptomatic
DVT ppx hep drip
FUll code
I have spent at least 36min reviewing chart, test results, communication with consultants and direct patient care
Anticipated Discharge: Within 24 hours
Subjective/Interval History
-
Date of Service: October 22, 2023
Objective Data
-
Labs:
Laboratory Results
10/22/23
05:29
WBC 13.0 H
Hgb 7.7 L
Hct 23.9 L
Plt Count 315
Sodium 134 L
Potassium 4.7 D
Chloride 96 L
Carbon Dioxide 31 H
BUN 16
Creatinine 0.9
Glucose 105 H
Calcium 8.6
Total Bilirubin 0.4
AST 27
ALT 18
Alkaline Phosphatase 85
Vital Signs:
Vital Signs
Temp Pulse Resp BP Pulse Ox
98.7 F 86 16 120/54 94
10/22/23 11:12 10/22/23 11:12 10/22/23 11:12 10/22/23 11:12 10/22/23 11:12
I&O
10/21/23 10/22/23 10/23/23
06:59 06:59 06:59
Intake Total 1260 / 1260 960 / 960
Output Total 700 / 700
Balance 560 / 560 960 / 960
Review of Systems
-
History Source: Patient
All other systems: Reviewed and negative
Physical Exam
-
General: No Apparent Distress
Respiratory: Clear to Auscultation
Cardiac: Irregular Rhythm
GI: Soft, Nontender and Nondistended
Musculoskeletal: No Clubbing, No Cyanosis and No Edema
Skin: Warm
Neuro: Awake, Alert, Oriented and AO x 3
Psych: Calm
[2023-10-22] MEDS: NOVOLOG FLEXPEN-LOW RESISTANCE 2 UNITS SC (12:26)
[2023-10-22] MEDS: TYLENOL 650 MG PO (12:31)
--- NOTE | 2023-10-22 12:35 | CM ---
Plan: anticipate discharge to home with [facility] home health services tomorrow, 10/23/23
[2023-10-22 13:31] LABS: Hemoglobin 8.5 g/dL (13.0-18.0)
[2023-10-22] MEDS: ProAmatine 5 MG PO (15:10)
[2023-10-22 17:02] LABS: Glucose - Point of Care 270 mg/dl (70-99)
[2023-10-22] MEDS: NOVOLOG FLEXPEN-LOW RESISTANCE 3 UNITS SC (17:13)
--- NOTE | 2023-10-22 18:01 | W.PN.UPDATE ---
Update Note
Progress Note Update
Cross Coverage Update:
Notified by nurse 3 sec episode NSVT noted on telemetry. Patient asymptomatic VSS no acute distress.
Ok to cont monitoring on tele. Defer further management/evaluation to primary attending.
--- NOTE | 2023-10-22 18:04 | PTCARENOTE ---
Patient with run of SVT on compliance monitor; Upon entering patient's room he was in no distress; Denied heart palpitations, dizziness, feeling lightheaded, or any feelings of his heart racing; Patient stated he was just coughing previously to RN's
entering the room; BP 131/60, HR 86, SaO2 96%, RR 14; [facility] [place] in person and shown telemetry strips; Patient now in NSR with BBB and HR is in the 80s; Per [facility] [place] continue to monitor patient; Care
ongoing
--- NOTE | 2023-10-22 18:23 | W.PN.UPDATE ---
Addendum entered and electronically signed by Roberto James MD 10/22/23 19:05:
disregard wrong patient
Original Note:
Update Note
Progress Note Update
Cross Coverage Update:
Notified by nursing staff patient's demanding patient be started on TPN immediately asked for covering physician to call her son Dr Rodriguez (Interventional Radiologist) and discuss.
Discussed with Dr Rodriguez [phone] who is well aware that TPN can not be started tonight but would like TPN to be started soon by tomorrow 10/22.
Defer to primary team hospitalist surgery further management/discussion.
[2023-10-22 21:24] LABS: Glucose - Point of Care 178 mg/dl (70-99)
[2023-10-22] MEDS: ROXICODONE 10 MG PO (22:31)
[2023-10-23] MEDS: DILAUDID 0.5 MG IV (03:51)
[2023-10-23 03:52] VITALS: BP 101/55
[2023-10-23 06:00] VITALS: BMI 21.3
[2023-10-23 07:15] VITALS: BP 98/49
[2023-10-23 07:34] LABS: % Basophils 0.7 % (0-2); % Eosinophils 4.6 % (0-6); % Immature Granulocytes 1.3 % (0-0.5); % Lymphocytes 13.4 % (20.5-51.1); % Monocytes 9.4 % (1.7-9.3); % Neutrophils 70.6 % (42.2-75.2); Absolute Basophils 0.1 10^3/uL (0-0.2); Absolute Eosinophils 0.6 10^3/uL (0-0.7); Absolute Immature Granulocytes 0.2 10^3/uL (0-0.05); Absolute Lymphocytes 1.8 10^3/uL (1.2-3.4); Absolute Monocytes 1.3 10^3/uL (0.1-0.6); Absolute Neutrophils 9.4 10^3/uL (1.4-6.5); Hematocrit 24.5 % (39.0-52.0); Hemoglobin 7.9 g/dL (13.0-18.0); Mean Corp Hgb Conc. 32.2 g/dL (33.0-37.0); Mean Corpuscular Hgb 27.5 pg (27.0-31.0); Mean Corpuscular Volume 85.4 fL (80.0-94.0); Mean Platelet Volume 10.6 fL (7.4-10.4); Nucleated Red Blood Cells % 0 % (-); Platelet Count 309 10^3/uL (130-400); Red Blood Cell Count 2.87 10^6/uL (4.70-6.10); Red Cell Dist. Width 15.8 % (11.5-14.5); White Blood Cell Count 13.4 10^3/uL (4.8-10.8)
--- NOTE | 2023-10-23 07:48 | W.PN.CRS1 ---
Today's Communication / Plan
-
As below
Assessment/Plan
-
73-year-old male with PMH of CAD s/p CABG/MVR, CHF, A-fib (on Eliquis), PVD (s/p left first toe amp, left CEA), DM, COPD, HTN, HLD, left foot drop, bladder cancer s/p TURBT, prostate cancer s/p prostatectomy who presents with 2 days of right-sided
abdominal pain associated with 1 day of shortness of breath and nausea/vomiting x 1. This is never happened to him before. He has been constipated since Thursday, denies any diarrhea or blood per rectum. His last colonoscopy was in [address] Silva,
which had a poor prep, 5 mm rectal polyp and internal hemorrhoids. In the ED, WBC 18.5, BNP 3520, UA negative, lactate 2.1, AFVSS, CT showing ascending colitis more likely infectious/inflammatory versus ischemic. He was admitted with IV
antibiotics. However, he developed worsening leukocytosis and fever with worsening abdominal pain, concerning for threatened bowel.
POD10 ex lap, right hemicolectomy with primary anastomosis and tap block
-no IntraOp issues with hemodynamics; received 1 L fluids, EBL 75; path- concern for ischemic colitis
-C/b delayed return of bowel function
AFVSS
WBC 13.4 from 13.0, Hb 7.9 from 8.5 (overall trend stable), BMP pending
�Segmental colitis of the ascending colon; s/p resection; path- concerning for early ischemic changes
�Appreciate GI; signed off
� Continue regular diet, okay for p.o. meds
� Continue pain control
�Continue long-acting pain regimen; continue standing Tylenol and Dilaudid as needed for breakthrough; transition to oral pain regimen
� Cont Eliquis
- Strict I/Os
-cont lasix per primary/cards
�Appreciate ID; monitor off antibiotics; leukocytosis persistent, but without left shift
�Defer to ID
� Appreciate cardiology for postoperative care of cardiac comorbidities
� Appreciate hospitalist
Dispo�depending on ID input regarding leukocytosis, okay for discharge from surgical standpoint
Subjective Data
Procedure
10/13/2023-Exploratory laparotomy, right hemicolectomy, TAP block
Subjective Data
Date of Service: October 23, 2023
No overnight events.
Pain controlled.
Denies nausea/vomiting. Tolerating regular diet.
+flatus -BMs +voiding
Pt is OOB.
Objective Data
-
Vital Signs
Temp Pulse Resp BP Pulse Ox
98.8 F 90 16 101/55 96
10/23/23 03:52 10/23/23 03:52 10/23/23 03:52 10/23/23 03:52 10/23/23 03:52
Intake & Output
10/22/23 10/23/23 10/24/23
06:59 06:59 06:59
Intake Total 960 / 960 960 / 960
Balance 960 / 960 960 / 960
Intake:
Oral fluids 960 / 960 960 / 960
Other:
Number of approximated MODERATE 2 1
amounts of urine
Lab Results
10/23/23 06:52
Physical Exam
-
General: No Acute Distress and AOx3
HEENT: Grossly Normal
Abdomen: Soft, Distended (Minimally distended), Non Tender, No Rebound and No Bowel Movement
Skin: Warm and Dry
Wound: No Signs of Infection, No Skin Erythema and Other (Midline with janet, open to air)
[2023-10-23 08:14] LABS: ALT (SGPT) 18 U/L (0-50); AST (SGOT) 24 U/L (17-59); Albumin 3.3 g/dl (3.5-5.0); Alkaline Phosphatase 87 U/L (38-126); Blood Urea Nitrogen 17 mg/dl (9-20); Calcium 8.5 mg/dl (8.4-10.2); Carbon Dioxide 36 mmol/L (22-30); Chloride 95 mmol/L (98-107); Estimated Creatinine Clearance 79 ml/min; Glucose 127 mg/dl (70-99); Phosphorus 3.7 mg/dl (2.5-4.5); Potassium 5.7 mmol/L (3.5-5.1); Sodium 136 mmol/L (135-145); Total Bilirubin 0.4 mg/dl (0.2-1.3); Total Protein 5.9 g/dl (6.3-8.2); eGFR > 60.00
[2023-10-23 08:37] LABS: Creatine Phosphokinase 34 U/L (55-170); LDH 237 U/L (120-246)
[2023-10-23] MEDS: NEURONTIN 600 MG PO ×3 (08:49→21:56)
[2023-10-23] MEDS: TOPROL XL 12.5 MG PO ×2 (08:50→20:31)
[2023-10-23] MEDS: ELIQUIS 5 MG PO ×2 (08:53→20:31)
[2023-10-23] MEDS: LASIX 40 MG PO (08:53)
[2023-10-23] MEDS: MS CONTIN (EXTENDED RELEASE) 15 MG PO ×3 (08:54→21:56)
[2023-10-23 08:55] LABS: Glucose - Point of Care 287 mg/dl (70-99)
[2023-10-23] MEDS: NOVOLOG FLEXPEN-LOW RESISTANCE 3 UNITS SC (08:55)
--- NOTE | 2023-10-23 08:56 | W.PN.CARDCBS ---
Addendum entered and electronically signed by Arron Luna MD 10/23/23 12:52:
Patient unfortunately with 30+ second episode of sustained monomorphic VT
He denies much shortness of breath
PMH/PSH/SH/FH: Reviewed
Allergies: Seafood
Outpatient meds reviewed, on metoprolol ER, midodrine as needed, furosemide 40 mg twice daily, Eliquis, atorvastatin, not on amiodaroneCurrent meds reviewed
ROS: Negative except as above
98/49, pulse 95, appears fatigued, lungs are relatively clear, cardiac exam with soft systolic murmur, abdomen benign extremities without clubbing cyanosis or edema
Echo today: Hyperdynamic LV function with peak mitral valve gradient of 43, mean 20, moderate MR, pulmonary artery systolic pressure 78 mmHg
Troponin is undetectable, TSH is pending
Impression:
-Sustained monomorphic ventricular tachycardia on telemetry 10/22/2023
-Suspected bioprosthetic mitral valve dysfunction with moderate MR, peak and mean gradients 43 and 20 mmHg
-New severe pulmonary hypertension
-Presentation with abd pain, N/V
-Acute colitis s/p R colectomy 10/13
-Post op ileus, improving
-Acute on chronic HFpEF
-Sustained monomorphic VT evening of 10/22/23
-Hx Recovered CM: CM EF 15-20% by echo Jan 2020 with EF 30% by echo 04/20/19 with h/o recovered CM EF 65% by echo 05/2022, EF 53% by echo 07/20/23
-CAD
s/p unsuccessful attempted PCI of LAD [facility] 03/07/16
CABG with occluded QUIÑONES to LAD by cath 2019, but patent SVG seq to Diag-OM-PDA 02/2014 -s/p bioprosthetic MVR 02/2014
-PAD s/p right femoral endarterectomy and right iliac stenting 02/2016
-PAD s/p right SFA and popliteal [employer] and stent 10/24/19
-possible TIA with noted L carotid stenosis s/p L CEA 03/03/23
-Paroxysmal Afib
-Chronic Eliquis OAC
-HTN
-Moderate to severe chronic obstructive pulmonary disease
-DM2 with Diabetic neuropathy
-Pulmonary HTN
-Hx prostate cancer s/p surgery 2007
-Medical marijuana use
-former smoker
Plan:
He presents with an episode of minimally symptomatic but sustained monomorphic ventricular tachycardia. He has hyperdynamic LV function and evidence of bioprosthetic mitral valve dysfunction that is substantial and associated with severe pulmonary
hypertension.
We will ask electrophysiology to review. To my mind he meets criteria for ICD implantation. Furthermore, I am concerned about mitral valve dysfunction and severe pulmonary hypertension. He may require cardiac catheterization. Transesophageal
echo may be warranted given concerns about mitral valve dysfunction.
.
Would not begin empiric amiodarone therapy at this time unless recommended by electrophysiology.
He is understandably very unhappy about all of the above and it is unclear how much he would accept at this time. However, he is not stable for discharge.
His troponin is undetectable, his EKG is without acute changes.
Addendum entered and electronically signed by Radha Irizarry PA-C 10/23/23 11:07:
reviewed tele strips with EP. recommendation for ICD implantation for sustained monomorphic VT. reviewed recommendations with patient. He reports he is tired and in pain and wants to go home to get 'good night's sleep.' He reports he understands his
risk of sudden without a device. He is not for DC today due to episode of VT as well as uptrending potassium level. He states he will review with his . d/w hospitalist and nursing. continue to follow on tele
Original Note:
Today's Communication / Plan
-
echo
EP eval
consider for amiodarone, ischemic eval
may require ICD placement
Impression / Plan
-
.
PCP: Dr. Sivakumar Patel
Primary Casino Floor Supervisor: Dr. Garcia
Impression:
-Presentation with abd pain, N/V
-Acute colitis s/p R colectomy 10/13
-Post op ileus, improving
-Acute on chronic HFpEF
-Sustained monomorphic VT evening of 10/22/23
-Hx Recovered CM: CM EF 15-20% by echo Jan 2020 with EF 30% by echo 04/20/19 with h/o recovered CM EF 65% by echo 05/2022, EF 53% by echo 07/20/23
-CAD
s/p unsuccessful attempted PCI of LAD [facility] 03/07/16
CABG with occluded QUIÑONES to LAD by cath 2019, but patent SVG seq to Diag-OM-PDA 02/2014
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
-PAD s/p right femoral endarterectomy and right iliac stenting 02/2016
-PAD s/p right SFA and popliteal [employer]GER and stent 10/24/19
-possible TIA with noted L carotid stenosis s/p L CEA 03/03/23
-Paroxysmal Afib
-Chronic Eliquis OAC
-HTN
-Moderate to severe chronic obstructive pulmonary disease
-DM2 with Diabetic neuropathy
-Pulmonary HTN
-Hx prostate cancer s/p surgery 2007
-Medical marijuana use
-former smoker
CATH 2019: Left main and three-vessel [place] coronary total occlusions, patent sequential SVG to diagonal/OM/PDA with collaterals to LAD, and occluded QUIÑONES to LAD, anterolateral wall hypokinesis with mild LV dysfunction
Echo 08/2022: Mild LVH, mid to apical anterior and anteroseptal hypokinesis, EF 50%, bioprosthetic mitral valve with peak/mean gradients 10/6 mmHg, GASTON 1.5 cm�, trace MR, dilated left atrium, aortic sclerosis, normal right heart cardiac
Echo 07/20/2023: EF 53%, mild concentric LVH. Bovine mitral valve replacement well-seated peak/mean gradient 20/10 mmHg with MV area 1.4 cm�, moderate MS with mild to moderate MR. Mild TR with PAP 35 mmHg
Plan:
-Patient presented with abd pain, N/V. found by CTAP to have acute colitis s/p R colectomy 10/13/23. Post op ileus 10/16, resolving and diet advancing, continue post op care
-he has been transitioned back to OP eliquis, lasix, and toprol
-around 1800 last evening, patient reports he swallowed a pea incorrectly and was coughing. associated with this on tele, appears he had episode of ~40 seconds of sustained monomorphic VT. he has had occasional PVCs since however no sustained runs
-last echo from 07/2023 with preserved EF, will repeat
-K 5.7, follow
-hgb 7.9
-would consider addition of amiodarone as also with brief episodes of atach vs afib. continue low dose toprol, uptitration limited by hypotension
-will review strips with EP. may need to consider ischemic evaluation and ICD implantation
-d/w nursing
Progress Note - Casino Floor Supervisor
Subjective
Date of Service: October 23, 2023
Currently feeling well. No palpitations or chest pain. Reports breathing stable.
Objective
Labs:
10/23/23 06:52
Labs
Hgb 7.9 g/dL (13.0-18.0) L 10/23/23 06:52
Hct 24.5 % (39.0-52.0) L 10/23/23 06:52
Plt Count 309 10^3/uL (130-400) 10/23/23 06:52
APTT 91.7 Sec (23.4-35.0) H 10/21/23 05:46
Sodium 136 mmol/L (135-145) 10/23/23 06:52
Potassium 5.7 mmol/L (3.5-5.1) H 10/23/23 06:52
BUN 17 mg/dl (9-20) 10/23/23 06:52
Creatinine 0.9 mg/dL (0.7-1.3) 10/23/23 06:52
Glucose 127 mg/dl (70-99) H 10/23/23 06:52
Vital Signs and I&O:
Vital Signs
Temp Pulse Resp BP Pulse Ox
97.9 F 95 16 98/49 98
10/23/23 07:15 10/23/23 07:15 10/23/23 07:15 10/23/23 07:15 10/23/23 07:15
Vital Signs
Temp Pulse Resp BP Pulse Ox
97.9 F 95 16 98/49 98
10/23/23 07:15 10/23/23 07:15 10/23/23 07:15 10/23/23 07:15 10/23/23 07:15
Intake & Output
10/21/23 10/22/23 10/23/23 10/24/23
07:59 07:59 07:59 07:59
Intake Total 1260 / 1260 960 / 960 960 / 960
Output Total 700 / 700
Balance 560 / 560 960 / 960 960 / 960
Physical Exam
Physical Exam
GEN: No distress, awake, alert, oriented x3
HEENT: supple, anicteric, mmm, eomi
LUNGS: CTA B/L, no wheezes
CV: Reg, S1/S2, 2/6 murmur
EXT: No cyanosis, clubbing, edema
NEURO: Gross non-focal
SKIN: Warm, pink, dry. No rash. Abd incision with janet c/d/i
--- NOTE | 2023-10-23 10:24 | PN.CDI ---
Addendum entered and electronically signed by Kishan Worley MD 10/23/23 11:24:
there is no relationship with eliquis
Original Note:
CDI
- -
CDI:
Physician Documentation Request
Admit Date: 10/12/23 17:08
Dear Doctor Meir,
Please review the following and provide your response in the progress notes.
Clinical Indicators:
PN, 10/21
#Noted sequential drop in Hgb,
#...currently no concern for ongoing bleeding by [facility]orectal[facility]x.
#Anemia of chronic disease
#COnt anticoag - heparin and switched back to eliquis on 10/21/23
Laboratory Tests
10/12/23 10/12/23 10/13/23
13:26 20:09 03:20
Hgb 12.4 L 14.0 12.5 L
10/13/23 10/14/23 10/15/23
22:23 05:44 05:47
Hgb 12.4 L 12.8 L 11.8 L
10/16/23 10/16/23 10/17/23
07:28 18:19 08:14
Hgb 9.5 L 9.9 L 10.0 L
10/18/23 10/18/23 10/19/23
05:28 10:59 06:06
Hgb 8.9 L 10.1 L 9.9 L
10/20/23 10/21/23 10/22/23
06:38 05:46 05:29
Hgb 9.0 L 8.0 L 7.7 L
10/22/23 10/23/23
13:23 06:52
Hgb 8.5 L 7.9 L
Laboratory Tests
10/19/23 10/19/23 10/19/23
01:02 06:06 14:54
APTT 96.2 H 55.2 H 158.4 H*
10/19/23 10/20/23 10/21/23
23:36 06:36 05:46
APTT 97.6 H 104.4 H 91.7 H
Based on the above and your clinical assessment, please clarify the relationship, if any, between these conditions:
Yes, Drop in hemoglobin is enhanced by/associated with/due to Eliquis.
No, Drop in hemoglobin is not enhanced by/associated with/due to Elquis but it is due to ___. (Please specify)
Other(please specify)
Use of terms such as suspected, likely, concern for, or probable (associated with a specific diagnosis that is being evaluated, monitored, or treated as if it exists) are acceptable and can be coded in the inpatient setting, when documented at the
time of discharge.
Thank you,
Paula Archibald RN BSN CCDS
CDI Specialist
please contact via tiger text
Please use your independent medical judgment in providing your response.
--- NOTE | 2023-10-23 10:38 | PN.CDI ---
CDI
- -
CDI:
Physician Documentation Request
Admit Date: 10/12/23 17:08
Dear Doctor Meir,
Please review the following and provide your response in the progress notes.
Clinical Indicators:
PN, 10/21
#Noted sequential drop in Hgb,
#...currently no concern for ongoing bleeding by ColorectalSx.
#Anemia of chronic disease
Laboratory Tests
10/12/23 10/12/23 10/13/23
13:26 20:09 03:20
Hgb 12.4 L 14.0 12.5 L
Hct 37.2 L 40.8 36.4 L
10/13/23 10/14/23 10/15/23
22:23 05:44 05:47
Hgb 12.4 L 12.8 L 11.8 L
Hct 35.8 L 38.3 L 33.5 L
10/16/23 10/16/23 10/17/23
07:28 18:19 08:14
Hgb 9.5 L 9.9 L 10.0 L
Hct 28.5 L 29.0 L 30.7 L
10/18/23 10/18/23 10/19/23
05:28 10:59 06:06
Hgb 8.9 L 10.1 L 9.9 L
Hct 26.0 L 30.1 L 29.4 L
10/20/23 10/21/23 10/22/23
06:38 05:46 05:29
Hgb 9.0 L 8.0 L 7.7 L
Hct 26.5 L 23.9 L 23.9 L
10/22/23 10/23/23
13:23 06:52
Hgb 8.5 L 7.9 L
Hct 25.0 L 24.5 L
Based on the above and your clinical assessment, please clarify the most likely condition/diagnosis evaluating, monitoring and/or treating?
Acute blood loss anemia with baseline chronic anemia (Specify type)
Anemia of chronic disease
Precipitous drop in hematocrit
Other(please specify)
Use of terms such as suspected, likely, concern for, or probable (associated with a specific diagnosis that is being evaluated, monitored, or treated as if it exists) are acceptable and can be coded in the inpatient setting, when documented at the
time of discharge.
Thank you,
Paula Archibald RN BSN CCDS
CDI Specialist
please contact via tiger text
Please use your independent medical judgment in providing your response.
[2023-10-23 10:42] LABS: Troponin I < 0.012 ng/ml
--- NOTE | 2023-10-23 11:18 | W.PN.HOSP.TC ---
Today's Communication/Plan
-
telemetry monitoring for 24h
Strongly recvommend ICD
low potassium diet
labs in AM
Might need heparin drip again if prepping for ICD
Assessment / Plan
Assessment / Plan
73yo M with PMHx of HLD, CAD s/p PCI and CABG, HFrEF with recovered EF, bioprosthetic MVR, PAD s/p R femoral endarterectomy and R SFA and stent, Hx of TIA, carotid stensois s/p L CEA, paroxysmal afib, HTN, pulmonary HTN, Hx of prostate CA, former
smoker came with nausea and vomiting, found ascending colitis on CT with concern for ischemic colitis, s/p R colectomy on 10/13. Has persistent leukocytosis most likely 2/2 recent Sx, however started to resolve off Abx. Had BM and advanced to regular
diet on 10/22/23. Developed VT on 10/22/23 and has indication for ICD, however still hesitating
A/P:
#VT
around 40sec run on 10/22/23
Cardio follows: will need ICD
cont telemetry
Echo to be repoeated
#Colitis, ischemic (as per pathology)
s/p ex lap with hemicolectomy and primary anastomosis on 10/13 with persistent leukocytosis
Worsening leukocytosis however no new acute fluid collection or abscess on CT on 10/19/23
Bcx repeated, NTD
Procalcitonin low
ID recommends to follow off Abx
ColorectalSx follows
Had normal postOP BM
#Acute on chronic HFrEF
Recovered EF as of july 2023
Cardio follows: medications restarted
Lasix PRN
#Anemia of chronic disease exacerbated by acute loss because of the surgery
follow Hgb
#Paroxysmal Afib
#Pulmonary HTN
#HLD
#CAD sp CABG and failed PCI
#bioprosthetic MVR
#PAD s/p stenting
#Orthostatic hypotension
COnt home meds
COnt anticoag - heparin and switched back to Eliquis on 10/21/23
#Recurrent hyperkalemia
low potassium diet
CPK not elevated, no kidney failure, no medications that can cause elevation of potassium. Most likely diet-related
#DM type 2 with neuropathy
Insulin SS< dm diet
Hold oral hypoglycemics
#Cholelithiasis without cholecystitis
Asymptomatic
DVT ppx hep drip
FUll code
I have spent at least 56min reviewing chart, test results, communication with consultants and direct patient care
Anticipated Discharge: > 48 hours
Subjective/Interval History
-
Date of Service: October 23, 2023
Objective Data
-
Labs:
Laboratory Results
10/23/23 10/23/23
06:52 12:00
WBC 13.4 H
Hgb 7.9 L
Hct 24.5 L
Plt Count 309
Sodium 136
Potassium 5.7 H Pending
Chloride 95 L
Carbon Dioxide 36 H
BUN 17
Creatinine 0.9
Glucose 127 H
Calcium 8.5
Total Bilirubin 0.4
AST 24
ALT 18
Alkaline Phosphatase 87
Vital Signs:
Vital Signs
Temp Pulse Resp BP Pulse Ox
97.9 F 95 16 98/49 98
10/23/23 07:15 10/23/23 08:53 10/23/23 07:15 10/23/23 08:53 10/23/23 08:45
I&O
10/22/23 10/23/23 10/24/23
06:59 06:59 06:59
Intake Total 960 / 960 960 / 960
Balance 960 / 960 960 / 960
Review of Systems
-
History Source: Patient
All other systems: Reviewed and negative
Physical Exam
-
General: No Apparent Distress
HEENT: Normocephalic, Atraumatic and Moist Mucous Membranes
Respiratory: Clear to Auscultation
Cardiac: Regular Rhythm
GI: Soft, Nontender and Nondistended
Genito-urinary: No Costovertebral Tender
Skin: Warm; Negative Dry or Rash
Neuro: Awake, Alert, Oriented and AO x 3
Psych: Calm
[2023-10-23 11:20] VITALS: BP 110/49
[2023-10-23 12:13] LABS: Glucose - Point of Care 228 mg/dl (70-99)
[2023-10-23] MEDS: NOVOLOG FLEXPEN-LOW RESISTANCE 2 UNITS SC (12:42)
--- NOTE | 2023-10-23 13:24 | W.PN.UPDATE ---
Update Note
Progress Note Update
Bioprosthetic MV disfunction noted on Echo -cardiology to follow, might need GLADIS/cath
Severely increased RV pressures - can be 2/2 MV dysfunction cannot exclude PE - CTA chest scheduled. Lasix to be held today to avoid SHAHEED, follow Cr
[2023-10-23] MEDS: ROXICODONE 10 MG PO (13:49)
[2023-10-23 14:08] LABS: NT-proBNP 2230 pg/ml
[2023-10-23 14:22] LABS: TSH Reflex To Free T4 2.59 uIU/ml (0.47-4.68)
[2023-10-23 15:15] VITALS: BP 105/56
[2023-10-23 15:29] LABS: Potassium 4.3 mmol/L (3.5-5.1)
--- NOTE | 2023-10-23 15:38 | W.PN.UPDATE ---
Update Note
Progress Note Update
I spoke with patient and his at bedside today. We discussed that patient experienced an episode of sustained monomorphic ventricular tachycardia with spontaneous termination. This lasted greater than 30 seconds. During that time, patient
reports he believes he was choking on a pea and coughing. No reported loss of consciousness. Patient reports that he overall feels well without other complaints at this time. In the setting of patient's known ischemic heart disease, previously
reduced now recovered LVEF, and sustained monomorphic VT, patient would benefit from secondary prevention ICD. We discussed at length regarding the benefits, risks, and alternatives. We discussed ICD indications for primary prevention and
secondary prevention patients including 5 year sudden risk. We also discussed implant procedure in detail including an approximate 1:1000 risk of MT/stroke/ and a 1% risk of pneumothorax/tamponade/infection/bleeding. We discussed the
less than 1% risk of wires bending, breaking, or tearing through the lifetime of the device requiring surgery or procedure to fix. We discussed the less than 1% risk of device/lead advisory or recall and requirement for monitoring for surveillance.
We also discussed post procedure implant restrictions including positions to avoid with implant arm for first six weeks after implant as well as driving restrictions. We discussed post implant possibility of inappropriate shocks from device and
programming strategies to minimize this risk. I provided patient and his with the [place] shared decision making ICD pamphlet for more information regarding ICD implantation. We discussed that if patient were to not undergo ICD implant, he
is at risk for sudden cardiac . Patient verbalized understanding with this. We also discussed possibility of wearable defibrillator as a bridge to implanted device however wearable defibrillator only works when worn again patient verbalized
understanding with this. Patient would like to think about his options however is tentatively considering implantation of dual-chamber ICD during this hospital stay. For now, tentatively schedule patient for dual-chamber ICD on 10/26/2023.
N.p.o. after midnight, hold blood thinner night before and morning of procedure.
[2023-10-23 16:07] LABS: Venous Blood Gas B.E. 8.2 mmol/L (-4 to +4); Venous Blood Gas HCO3 33.7 mmol/L (22-27); Venous Blood Gas pCO2 52 mmHg (35-48); Venous Blood Gas pH 7.42 (7.32-7.43); Venous Blood Gas pO2 117 mmHg (30-50)
--- NOTE | 2023-10-23 16:50 | CM ---
Tentatively scheduled for ICD on 10/26/23. Discharge Plan of Care: Home with [facility], PT/OT.
[2023-10-23 17:14] LABS: Glucose - Point of Care 180 mg/dl (70-99)
[2023-10-23] MEDS: NOVOLOG FLEXPEN-LOW RESISTANCE 1 UNITS SC (18:39)
[2023-10-23] MEDS: LIPITOR 80 MG PO (18:40)
[2023-10-23 19:43] VITALS: BP 115/54
[2023-10-23] MEDS: AMBIEN 5 MG PO (21:56)
[2023-10-23 22:05] LABS: Glucose - Point of Care 262 mg/dl (70-99)
[2023-10-23 23:00] VITALS: BP 112/52
[2023-10-24 03:30] VITALS: BP 120/56
[2023-10-24 06:46] LABS: % Basophils 0.6 % (0-2); % Eosinophils 4.9 % (0-6); % Immature Granulocytes 1.2 % (0-0.5); % Lymphocytes 13.4 % (20.5-51.1); % Monocytes 8.3 % (1.7-9.3); % Neutrophils 71.6 % (42.2-75.2); Absolute Basophils 0.1 10^3/uL (0-0.2); Absolute Eosinophils 0.7 10^3/uL (0-0.7); Absolute Immature Granulocytes 0.2 10^3/uL (0-0.05); Absolute Monocytes 1.2 10^3/uL (0.1-0.6); Absolute Neutrophils 10.5 10^3/uL (1.4-6.5); Hematocrit 24.6 % (39.0-52.0); Mean Corp Hgb Conc. 32.5 g/dL (33.0-37.0); Mean Corpuscular Hgb 27.1 pg (27.0-31.0); Mean Corpuscular Volume 83.4 fL (80.0-94.0); Mean Platelet Volume 10.3 fL (7.4-10.4); Nucleated Red Blood Cells % 0 % (-); Platelet Count 334 10^3/uL (130-400); Red Blood Cell Count 2.95 10^6/uL (4.70-6.10); Red Cell Dist. Width 15.7 % (11.5-14.5); White Blood Cell Count 14.6 10^3/uL (4.8-10.8)
[2023-10-24 07:04] LABS: ALT (SGPT) 17 U/L (0-50); AST (SGOT) 26 U/L (17-59); Albumin 3.1 g/dl (3.5-5.0); Alkaline Phosphatase 93 U/L (38-126); Blood Urea Nitrogen 20 mg/dl (9-20); Calcium 8.4 mg/dl (8.4-10.2); Carbon Dioxide 32 mmol/L (22-30); Chloride 98 mmol/L (98-107); Estimated Creatinine Clearance 89 ml/min; Glucose 132 mg/dl (70-99); Magnesium 1.9 mg/dl (1.6-2.3); Potassium 4.3 mmol/L (3.5-5.1); Sodium 133 mmol/L (135-145); Total Bilirubin 0.5 mg/dl (0.2-1.3); Total Protein 5.6 g/dl (6.3-8.2); eGFR > 60.00
[2023-10-24 07:30] VITALS: BP 113/54
[2023-10-24 07:35] LABS: Glucose - Point of Care 152 mg/dl (70-99)
[2023-10-24] MEDS: NEURONTIN 600 MG PO ×3 (07:37→22:26)
[2023-10-24] MEDS: TOPROL XL 12.5 MG PO (07:37)
[2023-10-24] MEDS: MS CONTIN (EXTENDED RELEASE) 15 MG PO ×3 (07:37→22:26)
[2023-10-24] MEDS: ELIQUIS 5 MG PO ×2 (07:37→20:01)
[2023-10-24] MEDS: NOVOLOG FLEXPEN-LOW RESISTANCE 1 UNITS SC (08:08)
--- NOTE | 2023-10-24 08:15 | W.PN.HOSP.TC ---
Today's Communication/Plan
-
Pulm consult
Hgb stable
Potassium normalized -cont low potassium diet
Cardio for ICD planning, might need change to heparin drip if scheduled - defer to cardio
Assessment / Plan
Assessment / Plan
73yo M with PMHx of HLD, CAD s/p PCI and CABG, HFrEF with recovered EF, bioprosthetic MVR, PAD s/p R femoral endarterectomy and R SFA and stent, Hx of TIA, carotid stenosis s/p L CEA, paroxysmal afib, HTN, pulmonary HTN, Hx of prostate CA, former
smoker came with nausea and vomiting, found ascending colitis on CT with concern for ischemic colitis, s/p R colectomy on 10/13. Has persistent leukocytosis most likely 2/2 recent Sx, however started to resolve off Abx. Had BM and advanced to regular
diet on 10/22/23. Developed VT on 10/22/23 and has indication for ICD, pending plan with cardiology
A/P:
#VT
around 40sec run on 10/22/23
Cardio follows: will need ICD
cont telemetry
Echo: Bioprosthetic MV disfunction noted on Echo -cardiology to follow, might need GLADIS/cath
Severely increased RV pressures - can be 2/2 MV dysfunction
CTA chest neg for PE
#Colitis, ischemic (as per pathology)
s/p ex lap with hemicolectomy and primary anastomosis on 10/13 with persistent leukocytosis
Worsening leukocytosis however no new acute fluid collection or abscess on CT on 10/19/23
Bcx repeated, NTD
Procalcitonin low
ID recommends to follow off Abx
ColorectalSx follows
Had normal postOP BM
#Acute on chronic HFrEF
Recovered EF as of july 2023
Cardio follows: medications restarted
Lasix PRN
#Anemia of chronic disease exacerbated by acute loss because of the surgery
follow Hgb - stable
#Paroxysmal Afib
#Pulmonary HTN
#HLD
#CAD sp CABG and failed PCI
#bioprosthetic MVR
#PAD s/p stenting
#Orthostatic hypotension
COnt home meds
COnt anticoag - heparin and switched back to Eliquis on 10/21/23
#Recurrent hyperkalemia
low potassium diet
CPK not elevated, no kidney failure, no medications that can cause elevation of potassium. Most likely diet-related
#DM type 2 with neuropathy
Insulin SS< dm diet
Hold oral hypoglycemics
#Cholelithiasis without cholecystitis
Asymptomatic
#Intermittent hypercarbia, most likely MAGY
#Emphysematous changes on CT
#Mediastinal and perihilar lymphadenopathy
outpatient sleep study
pulmonology consult
WIll also need repeated chest CT imaging later after recovery from acute illness
DVT ppx hep drip
Full code
I have spent at least 56min reviewing chart, test results, communication with consultants and direct patient care
Anticipated Discharge: > 48 hours
Subjective/Interval History
-
Date of Service: October 24, 2023
Objective Data
-
Labs:
Laboratory Results
10/24/23
06:28
WBC 14.6 H
Hgb 8.0 L
Hct 24.6 L
Plt Count 334
Sodium 133 L
Potassium 4.3
Chloride 98
Carbon Dioxide 32 H
BUN 20
Creatinine 0.8
Glucose 132 H
Calcium 8.4
Total Bilirubin 0.5
AST 26
ALT 17
Alkaline Phosphatase 93
Vital Signs:
Vital Signs
Temp Pulse Resp BP Pulse Ox
98.1 F 85 16 113/54 95
10/24/23 07:30 10/24/23 07:37 10/24/23 07:30 10/24/23 07:37 10/24/23 07:30
I&O
10/23/23 10/24/23 10/25/23
06:59 06:59 06:59
Intake Total 960 / 960 1200 / 1200
Balance 960 / 960 1200 / 1200
Review of Systems
-
History Source: Patient
All other systems: Reviewed and negative
Physical Exam
-
General: No Apparent Distress
HEENT: Normocephalic
Respiratory: Clear to Auscultation; Negative Wheezes
Cardiac: Regular Rhythm
GI: Soft, Nontender and Nondistended
Genito-urinary: No Costovertebral Tender
Musculoskeletal: No Clubbing, No Cyanosis and No Edema
Psych: Calm
--- NOTE | 2023-10-24 10:01 | W.PN.CARDCBS ---
Addendum entered and electronically signed by Fredrick Munoz MD 10/24/23 13:24:
I saw and examined the patient.
The Park Landscape [employer]'s note was reviewed and I agree with the note.
Comment: Briefly, 73-year-old man past medical history of heart failure with recovered ejection fraction, ischemic cardiomyopathy and bioprosthetic mitral valve replacement presenting with colitis now status post colectomy on 10/14/2023
Prior to discharge patient identified as having an episode of sustained monomorphic VT on telemetry on the morning of 10/23/2023, currently maintaining sinus rhythm without ectopy
Continue beta-heath and amiodarone
Monitor on telemetry
Tentative plan for ICD on 10/26/2023
We also discussed his bioprosthetic mitral valve stenosis seen on echo, would favor targeting a lower heart rate around 55 to 60 bpm to allow for increased filling time, will uptitrate metoprolol as blood pressure tolerates
May benefit from blood transfusion if hemoglobin trends lower as he appears to be in a high output state based on the echo
Volume status appears reasonable, continue oral Lasix
Original Note:
Today's Communication / Plan
-
ICD Thursday
follow on tele
eliquis to be held as of 8PM dose
follow hgb
Impression / Plan
-
PCP: Dr. Sivakumar Patel
Primary Director Of Testing: Dr. Garcia
Impression:
-Presentation with abd pain, N/V
-Acute colitis s/p R colectomy 10/13
-Post op ileus, improving
-Acute on chronic HFpEF
-Sustained monomorphic VT evening of 10/22/23
-Hx Recovered CM: CM EF 15-20% by echo Jan 2020 with EF 30% by echo 04/20/19 with h/o recovered CM EF 65% by echo 05/2022, EF 53% by echo 07/20/23
-CAD
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
CABG with occluded QUIÑONES to LAD by cath 2019, but patent SVG seq to Diag-OM-PDA 02/2014
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
-PAD s/p right femoral endarterectomy and right iliac stenting 02/2016
-PAD s/p right SFA and popliteal TANK STORAGE SUPERVISOR and stent 10/24/19
-possible TIA with noted L carotid stenosis s/p L CEA 03/03/23
-Paroxysmal Afib
-Chronic Eliquis OAC
-HTN
-Moderate to severe chronic obstructive pulmonary disease
-DM2 with Diabetic neuropathy
-Pulmonary HTN
-Hx prostate cancer s/p surgery 2007
-Medical marijuana use
-former smoker
CATH 2019: Left main and three-vessel [place] coronary total occlusions, patent sequential SVG to diagonal/OM/PDA with collaterals to LAD, and occluded QUIÑONES to LAD, anterolateral wall hypokinesis with mild LV dysfunction
Echo 08/2022: Mild LVH, mid to apical anterior and anteroseptal hypokinesis, EF 50%, bioprosthetic mitral valve with peak/mean gradients 10/6 mmHg, GASTON 1.5 cm�, trace MR, dilated left atrium, aortic sclerosis, normal right heart cardiac
Echo 07/20/2023: EF 53%, mild concentric LVH. Bovine mitral valve replacement well-seated peak/mean gradient 20/10 mmHg with MV area 1.4 cm�, moderate MS with mild to moderate MR. Mild TR with PAP 35 mmHg
ECHO 10/23/23: EF 68%, flattened septum in systole consistent with RV pressure overload, severely dilated left atrium, bovine mitral valve replacement with peak/mean gradients of 43/22 mmHg, concern for at least moderate bioprosthetic MS, moderate MR,
moderate TR, PAP 78 mmHg
Plan:
-Patient presented with abd pain, N/V. found by CTAP to have acute colitis s/p R colectomy 10/13/23. Post op ileus 10/16, resolved. tolerating low res diet. continue post op care
-he has been transitioned back to OP kevan avalosix, and toprol
-evening of 10/21, had episode of ~43 seconds of sustained monomorphic VT, fortunately broke with coughing. no further VT noted on tele overnight
-discussed concerns of scar based VT with patient and 10/22. d/w EP. trop negative. patient agreeable to ICD placement Wednesday 10/25.
-echo with results as above.
-hgb 8.0. if drops below 8 would consider transfusion given his significant cardiac history
-K improved
-would consider for GLADIS to further evaluate mitral valve once recovered from colectomy and ICD placement. unclear if would be redo sternotomy candidate. alternative consideration would be for TMVR if mitral valve disease felt to be severe.
-d/w nursing
Progress Note - Director Of Testing
Subjective
Date of Service: October 24, 2023
No issues overnight. Reports he got a good night sleep
Objective
Labs:
10/24/23 06:28
10/24/23 06:28
Labs
Hgb 8.0 g/dL (13.0-18.0) L 10/24/23 06:28
Hct 24.6 % (39.0-52.0) L 10/24/23 06:28
Plt Count 334 10^3/uL (130-400) 10/24/23 06:28
APTT 91.7 Sec (23.4-35.0) H 10/21/23 05:46
Sodium 133 mmol/L (135-145) L 10/24/23 06:28
Potassium 4.3 mmol/L (3.5-5.1) 10/24/23 06:28
BUN 20 mg/dl (9-20) 10/24/23 06:28
Creatinine 0.8 mg/dL (0.7-1.3) 10/24/23 06:28
Glucose 132 mg/dl (70-99) H 10/24/23 06:28
Troponins
10/23/23
09:59
Troponin I < 0.012
Vital Signs and I&O:
Vital Signs
Temp Pulse Resp BP Pulse Ox
98.1 F 85 16 113/54 95
10/24/23 07:30 10/24/23 07:37 10/24/23 07:30 10/24/23 07:37 10/24/23 07:30
Vital Signs
Temp Pulse Resp BP Pulse Ox
98.1 F 85 16 113/54 95
10/24/23 07:30 10/24/23 07:37 10/24/23 07:30 10/24/23 07:37 10/24/23 07:30
Intake & Output
10/22/23 10/23/23 10/24/23 10/25/23
07:59 07:59 07:59 07:59
Intake Total 960 / 960 960 / 960 1200 / 1200
Balance 960 / 960 960 / 960 1200 / 1200
Physical Exam
Physical Exam
GEN: No distress, awake, alert, oriented x3
HEENT: supple, anicteric, mmm, eomi
LUNGS: CTA B/L, no wheezes
CV: Reg, S1/S2, 2/6 murmur
EXT: No cyanosis, clubbing, edema
NEURO: Gross non-focal
SKIN: Warm, pink, dry. No rash. Abd incision with janet c/d/i
[2023-10-24 11:20] VITALS: BP 99/55
[2023-10-24 11:49] LABS: Glucose - Point of Care 267 mg/dl (70-99)
[2023-10-24] MEDS: NOVOLOG FLEXPEN-LOW RESISTANCE 3 UNITS SC (11:55)
--- NOTE | 2023-10-24 12:45 | W.PN.ID1 ---
Date of Service
Date of Service: October 24, 2023
Today's Communication
Observe off abx.
Assessment / Plan
# Leukocytosis trending up again
- reactive due to recent cardiac events with sustained VT, acute on chronic heart failure, bioprosthetic MVR stenosis
- For ICD Thursday.
- No signs and sxs of infection
- Continue to monitor off abx.
# Recent Ischemic colitis s/p right hemicolectomy 10/13/23.
- 10/19/23 CT a/p: no intra-abdominal abscess.
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
DM-II with Neuropathy
Chronic HFpEF
Chronic hypotension
COPD
Bioprosthetic MVR
CAD s/p CABG
Paroxysmal Atrial Fibrillation
PAD s/p RLE stent, s/p Bilateral Fem-Pop Bypass
Left CEA
Bladder Cancer s/p TURBT (07/2023)
Prostate Cancer s/p prostatectomy
Chronic Pain / Chronic Opioid Dependence
Left hallux amputation
Left shoulder surgery
Chief Complaint
-: Leukocytosis
Subjective / Review of Systems
Tolerating diet. No BM x 2 days.
No cough. No abd pain.
Vital Signs / Physical Exam
Vital Signs
Vital Signs
Temp Pulse Resp BP Pulse Ox
98.5 F 81 16 99/55 97
10/24/23 11:20 10/24/23 11:20 10/24/23 11:20 10/24/23 11:20 10/24/23 11:20
Physical Exam
Constitutional: No Acute Distress
Cardiovascular: Regular Rate and S1/S2
Pulmonary: Clear
Gastrointestinal: Soft, Non Tender, Non Distended, Normal Bowel Sounds and Other (incision clean and dry)
Genito-Urinary: Negative CVA Tenderness
Neurological: AO x 3
Objective Data
Lab Data
Lab Results
10/24/23 06:28
10/24/23 06:28
APTT 91.7 Sec (23.4-35.0) H 10/21/23 05:46
Estimated Creat Clear 89 ml/min 10/24/23 06:28
Lactic Acid 2.1 mmol/L (0.7-2.0) H 10/12/23 17:17
Total Bilirubin 0.5 mg/dl (0.2-1.3) 10/24/23 06:28
AST 26 U/L (17-59) 10/24/23 06:28
ALT 17 U/L (0-50) 10/24/23 06:28
Alkaline Phosphatase 93 U/L (38-126) 10/24/23 06:28
Most recent labs reviewed.
Micro Results:
10/19/23 14:54 Blood Culture - Preliminary
Blood/Venous No Growth in 4 days- Final report to follow
10/12/23 17:17 Blood Culture - Final
Blood/Venous No Growth - Final Report
10/12/23 17:17 Blood Culture - Final
Blood/Venous No Growth - Final Report
10/19/23 CT a/p: No acute abnormality in the abdomen or pelvis following right hemicolectomy. Trace free fluid in the right paracolic gutter along with minimal residual inflammatory changes from recent surgery. No evidence of abscess or drainable
fluid collection. No evidence of anastomotic leak.
10/15/23 CXR: Mild interstitial pulmonary edema with small right pleural effusion.
10/12/23 CT a/p: Acute colitis involving the ascending colon. No extraluminal fluid collection or free air. Findings are likely infectious/inflammatory. The SMA is markedly atherosclerotic, however the distal branches do appear patent.
--- NOTE | 2023-10-24 12:51 | CON.PUL ---
Consultation
Consultation Request
Date/Time Consultation Requested: 10/23
Date/Time Consultation Performed: 10/23
Reason for Consultation: Abnormal imaging
Medical History
-
History of Present Illness:
History obtained from the patient, reviewing outpatient and inpatient records. Patient is a pleasant 73-year-old male with complex medical history. He was last hospitalized in July for heart failure exacerbation. He presented on 10/12/2023 with
shortness of breath and right-sided abdominal discomfort. He had emesis at that time. Patient had described constipation, was seen by surgery. Right-sided colitis was suspected based on CT imaging. Patient was on heparin drip for mitral valve
and atrial fibrillation. Cardiology was managing heart failure and antibiotics managed by primary service. Hospital stay was reviewed. Patient would have intermittent wheezing, chest congestion. He was given DuoNebs and Lasix with improvement.
Patient underwent exploratory laparotomy with right hemicolectomy, likely ischemic segmental colitis. Patient developed progressive GI symptoms 10/16 with ileus. Infectious disease was consulted, recommendation was to remain off antibiotics at this
time. Repeat imaging did not reveal any abscess. Diet was advanced to full liquids on 10/20, Eliquis was resumed per cardiology. Patient then developed 30 seconds of sustained monomorphic VT on 10/21. Echocardiogram showed suspected bioprosthetic
mitral valve dysfunction with moderate MR and new severe pulmonary hypertension. Patient was seen by EP and plans for possible ICD were noted along with additional cardiac evaluation. Patient had CT chest, rule out PE. We are asked to comment on
CT chest findings 10/24/2023
Presently, patient is without shortness of breath, chest pain, lightheadedness, dizziness, nausea, palpitations.
Preadmission, he denies any limitations with regards to his breathing
.
PMH: Coronary disease with bypass surgery, paroxysmal atrial fibrillation, COPD, bladder cancer, prostate cancer, diabetes complicated by neuropathy. Chronic pain syndrome with chronic narcotic therapy, hypertension, hyperlipidemia. History of
pericarditis, osteomyelitis, bovine mitral valve replacement. History of prostatectomy 2007, bilateral femoropopliteal bypass, right lower extremity stent
Past Medical History
Past Medical History: None (See above)
Past Surgical History: None (See above)
Social History
Tobacco: Former Smoker ([id number], quit 2007)
Alcohol: None
Drug: Marijuana
Personal:
Living: With Family
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
Family History
Family History: Other (Father with prostate cancer, mother with breast cancer. 2 brothers and 1 son healthy. 1 sibling in [place])
Allergies / Home Medications
Allergies
Allergy/AdvReac Type Severity Reaction Status Date / Time
fish derived Allergy SEAFOOD-HIV Verified 10/12/23 12:10
ES
Home Medications
�Medication �Instructions �Recorded �Confirmed �Last Taken �Type
atorvastatin 80 mg tablet 80 mg PO QPM High cholesterol 01/19/20 10/12/23 10/11/23 History
gabapentin 600 mg tablet 600 mg PO TID Pain 12/19/22 10/12/23 10/12/23 History
zolpidem 5 mg tablet 5 mg PO HSPRN PRN sleep 12/19/22 10/12/23 05/08/23 21:00 History
acetaminophen 325 mg tablet 650 mg (2 x 325 mg) PO Q4HPRN PRN 12/22/22 10/12/23 10/10/23 Rx
mild pain/BRAVO/temp> 100.4F #100 tabs
oxycodone 10 mg tablet 10 mg PO Q6H PRN Pain 02/26/23 10/12/23 10/12/23 History
glipizide 2.5 mg tablet, extended 2.5 mg PO QPM Diabetes #0 tabs 02/27/23 10/12/23 10/11/23 Rx
release 24 hr
metformin 1,000 mg tablet 1,000 mg PO BID Diabetes #0 tabs 02/27/23 10/12/23 10/11/23 Rx
morphine 15 mg tablet,extended 15 mg PO Q8H Pain 07/18/23 10/12/23 10/12/23 History
release
apixaban 5 mg tablet (Eliquis) 5 mg PO BID Blood clot 07/23/23 10/12/23 10/12/23 Rx
prevention/tx #60 tabs
docusate sodium 100 mg capsule 100 mg PO BID Constipation #0 caps 07/23/23 10/12/23 10/12/23 Rx
furosemide 40 mg tablet 40 mg PO BID AT 0800,1600 Fluid 07/23/23 10/12/23 10/12/23 Rx
retention/Swelling #60 tabs
metoprolol succinate 25 mg 12.5 mg (1/2 x 25 mg) PO DAILY 07/23/23 10/12/23 10/11/23 Rx
tablet,extended release 24 hr Heart disease/condition #30 tabs
midodrine 5 mg tablet 5 mg PO TIDPRN PRN dizziness #10 07/23/23 10/12/23 Unknown Rx
tabs
polyethylene glycol 3350 17 gram 17 g PO DAILY constipation #0 ea 07/23/23 10/12/23 10/12/23 Rx
oral powder packet (HealthyLax)
sennosides 8.6 mg tablet (Senna 17.2 mg (2 x 8.6 mg) PO BID when 07/23/23 10/12/23 10/12/23 Rx
Laxative) you take opiates #0 tabs
Review of Systems
-
All other systems: Negative unless noted
Vitals / Labs / Diagnostic Testing
Vital Signs
Temp Pulse Resp BP Pulse Ox
98.5 F 81 16 99/55 97
10/24/23 11:20 10/24/23 11:20 10/24/23 11:20 10/24/23 11:20 10/24/23 11:20
Lab Data
10/24/23 06:28
10/24/23 06:28
Microbiology
10/19/23 14:54 Blood/Venous Blood Culture - Preliminary
No Growth in 4 days- Final report to follow
Diagnostic Testing:
Physical Exam
-
HEENT: Normocephalic and Anicteric
Cardiovascular: S1/S2, Regular Rhythm, Murmur (2/6 systolic murmur), Peripheral Edema (n) and Calf Tenderness (n)
Respiratory: Wheeze (n), Rales (n), Rhonchi (n), Non-Labored Respirations and Other (Bronchial)
GI: Soft, Non Distended, Non Tender and Other (Abdominal incision intact)
Neurology: Awake, Alert and No Motor Deficits
Skin: Good Color (Mild pallor)
General: Comfortable (Conversant)
Assessment
-
73-year-old male with complex history including atrial fibrillation, COPD, CAD, PAF, PAD, bladder and prostate cancer as well as diabetes and chronic heart failure in addition to chronic pain and chronic opioid dependence and mitral valve
replacement, admitted 10/12/2023 with abdominal discomfort. Hospital stay reviewed. Patient underwent exploratory laparotomy with right hemicolectomy for what was suspected to be ischemic colitis. He has recovered, then developed monomorphic VT,
now being evaluated for ICD. CT chest obtained and we are asked to comment on findings 10/24/2023
Acute colitis status post right colectomy 10/14/2023
Admitted 10/12/2023
Presented with abdominal pain, nausea
Acute on chronic heart failure
Bilateral effusions per CT imaging
Monomorphic VT 10/22/2023
Awaiting ICD 10/25
Mediastinal/hilar adenopathy per CT chest 10/24/2023
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
Worsening mitral valve gradients per echo 10/23/2023
Pulmonary hypertension
PA pressure 78, progressive per echo 10/23/2023
Coronary disease
History of CABG
History of unsuccessful attempted PCI LAD 2015
Atrial fibrillation on anticoagulation
Peripheral arterial disease
Right femoral endarterectomy, right iliac stent 2015
Right SFA and popliteal TOP EXECUTIVE/stent 2019
Left great toe amputation 2014, chronic wound issues in the past
Bilateral femoropopliteal bypass 2015
Status post left carotid endarterectomy 2022
History of cardiomyopathy EF 15%, improved per recent echo, now 68%
Conditions present prior to admission
COPD
[id number] history of smoking quit 2007
Bladder cancer.�
Prostate cancer
Prostatectomy 2007
Diabetes.�
Chronic pain syndrome, chronic opioid use
Marijuana use for pain
Hypertension/Hyperlipidemia.�
DNR
Plan/recommendations
At this time, patient appears to be comfortable
Extensive medical records reviewed
Ongoing cardiac issues noted, echocardiogram findings noted
Plan for ICD, possible additional cardiac workup including catheterization noted
We are asked to comment on his CT chest findings
He has bilateral pleural effusions, right greater than left
Suspect this is from volume overload, heart failure
Patient remains without pulmonary symptoms
Adenopathy is noted, 2.8 cm hilar lymph node
No parenchymal abnormality per my review
Moving forward
No further workup from a pulmonary standpoint
He was last seen in the pulmonary office and only seen in September 2022. Has not followed up since
At that time, FEV1 2.24/62%
It was recommended that he start inhaler therapy but patient never followed up (Anoro)
Given his lack of symptoms and tachyarrhythmias, will hold off on starting any inhaler therapy at this time
If he were to develop increased pulmonary symptoms, we could revisit this
With regards to his adenopathy, I suspect this could be explained with volume overload
No further testing at this time
Would consider repeat CT chest in 6 months without contrast
This can be done as outpatient and we will gladly follow up with him at that time. He is agreeable
DVT prophylaxis: Was on warfarin in the past, presently on Eliquis, currently held for possible ICD. Sequential teds
GI prophylaxis: Not indicated
We will follow briefly
Diagnostic data:
Chest x-ray 03/03/2023: No active disease
Echo 10/23/2023: Normal biventricular function, EF 68%, mitral valve gradients have worsened, moderate MR, PA pressure 78, worsened
Echocardiogram 09/01/2022: EF 50%, bioprosthetic mitral valve, aortic sclerosis, normal right heart, cannot measure right heart pressures
Cardiac catheterization 01/23/2020-left main and three-vessel CAD occlusion, patent sequential SVG to diagonal OM PDA and collaterals to LAD, known occluded QUIÑONES to LAD, anterolateral wall hypokinesis
[2023-10-24] MEDS: TOPROL XL PO (13:27)
[2023-10-24] MEDS: ROXICODONE 10 MG PO (13:47)
[2023-10-24 15:30] VITALS: BP 97/54
[2023-10-24 17:08] LABS: Glucose - Point of Care 242 mg/dl (70-99)
[2023-10-24] MEDS: LIPITOR 80 MG PO (17:20)
[2023-10-24] MEDS: NOVOLOG FLEXPEN-LOW RESISTANCE 2 UNITS SC (17:21)
[2023-10-24 19:22] VITALS: BP 106/53
[2023-10-24] MEDS: TOPROL XL 25 MG PO (20:02)
[2023-10-24] MEDS: AMBIEN 5 MG PO (22:26)
[2023-10-24 22:35] LABS: Glucose - Point of Care 236 mg/dl (70-99)
[2023-10-24 23:02] VITALS: BP 111/51
[2023-10-25] VITALS (8 sets, daily range): BP systolic 88–132; BP diastolic 37–65; PULSE 83; O2SAT 97; BMI 21.8
[2023-10-25 06:32] LABS: % Basophils 0.7 % (0-2); % Eosinophils 4.7 % (0-6); % Immature Granulocytes 1.3 % (0-0.5); % Lymphocytes 9.3 % (20.5-51.1); % Monocytes 8.5 % (1.7-9.3); % Neutrophils 75.5 % (42.2-75.2); Absolute Basophils 0.1 10^3/uL (0-0.2); Absolute Eosinophils 0.8 10^3/uL (0-0.7); Absolute Immature Granulocytes 0.2 10^3/uL (0-0.05); Absolute Lymphocytes 1.5 10^3/uL (1.2-3.4); Absolute Monocytes 1.4 10^3/uL (0.1-0.6); Absolute Neutrophils 12.5 10^3/uL (1.4-6.5); Hematocrit 23.8 % (39.0-52.0); Hemoglobin 7.9 g/dL (13.0-18.0); Mean Corp Hgb Conc. 33.2 g/dL (33.0-37.0); Mean Corpuscular Volume 84.4 fL (80.0-94.0); Mean Platelet Volume 10.7 fL (7.4-10.4); Nucleated Red Blood Cells % 0 % (-); Platelet Count 331 10^3/uL (130-400); Red Blood Cell Count 2.82 10^6/uL (4.70-6.10); Red Cell Dist. Width 15.4 % (11.5-14.5); White Blood Cell Count 16.6 10^3/uL (4.8-10.8)
[2023-10-25 06:53] LABS: ALT (SGPT) 21 U/L (0-50); AST (SGOT) 43 U/L (17-59); Albumin 3.2 g/dl (3.5-5.0); Alkaline Phosphatase 97 U/L (38-126); Blood Urea Nitrogen 15 mg/dl (9-20); Calcium 8.5 mg/dl (8.4-10.2); Carbon Dioxide 34 mmol/L (22-30); Chloride 95 mmol/L (98-107); Estimated Creatinine Clearance 91 ml/min; Glucose 126 mg/dl (70-99); Iron 34 ug/dl (49-181); Potassium 5.5 mmol/L (3.5-5.1); Sodium 133 mmol/L (135-145); Total Bilirubin 0.6 mg/dl (0.2-1.3); Total Protein 5.9 g/dl (6.3-8.2); eGFR > 60.00
[2023-10-25 07:03] LABS: Percent Saturation 12 % (20-50); Total Iron Binding Capacity 282 ug/dl (261-462)
[2023-10-25] MEDS: NEURONTIN 600 MG PO ×3 (07:21→22:24)
[2023-10-25] MEDS: ELIQUIS 5 MG PO (07:22)
[2023-10-25] MEDS: TOPROL XL 25 MG PO (07:22)
[2023-10-25] MEDS: MS CONTIN (EXTENDED RELEASE) 15 MG PO ×3 (07:22→22:25)
[2023-10-25 07:29] LABS: Ferritin 51.8 ng/ml (17.9-464.0)
[2023-10-25] MEDS: NOVOLOG FLEXPEN-LOW RESISTANCE 1 UNITS SC ×2 (07:29→11:34)
[2023-10-25 07:30] LABS: Glucose - Point of Care 181 mg/dl (70-99)
[2023-10-25 08:00] LABS: Folate 10.9 ng/ml (2.76-20); Vitamin B12 466 pg/ml (239-931)
--- NOTE | 2023-10-25 10:14 | W.PN.HOSP.TC ---
Addendum entered and electronically signed by Kishan Worley MD 10/25/23 14:48:
CT scan in 6mo for mediastinal and perihilar lymphadenopathy
Outpatient Pulm for emphysema
Addendum entered and electronically signed by Kishan Worley MD 10/25/23 14:45:
#LILIANA
started IV Iron
Original Note:
Today's Communication/Plan
-
Pending ICD
Leukocytosis without fever and no worsening abd pain - cont to monitor
Start laxatives
Assessment / Plan
Assessment / Plan
73yo M with PMHx of HLD, CAD s/p PCI and CABG, HFrEF with recovered EF, bioprosthetic MVR, PAD s/p R femoral endarterectomy and R SFA and stent, Hx of TIA, carotid stenosis s/p L CEA, paroxysmal afib, HTN, pulmonary HTN, Hx of prostate CA, former
smoker came with nausea and vomiting, found ascending colitis on CT with concern for ischemic colitis, s/p R colectomy on 10/13. Has persistent leukocytosis most likely 2/2 recent Sx, however started to resolve off Abx. Had BM and advanced to regular
diet on 10/22/23. Developed VT on 10/22/23 and has indication for ICD, which is planned for 10/26/23 by cardiology
A/P:
#VT
around 40sec run on 10/22/23
Cardio follows: will need ICD
cont telemetry
Echo: Bioprosthetic MV disfunction noted on Echo -cardiology to follow, might need GLADIS/cath
Severely increased RV pressures - can be 2/2 MV dysfunction
CTA chest neg for PE
#Colitis, ischemic (as per pathology)
s/p ex lap with hemicolectomy and primary anastomosis on 10/13 with persistent leukocytosis
Worsening leukocytosis however no new acute fluid collection or abscess on CT on 10/19/23
Bcx repeated, NTD
Procalcitonin low
ID recommends to follow off Abx
Colorectal[facility]x follows
Had normal postOP BM
#Acute on chronic HFrEF
Recovered EF as of july 2023
Cardio follows: medications restarted
Lasix PRN
#Anemia of chronic disease exacerbated by acute loss because of the surgery
follow Hgb - stable
#Paroxysmal Afib
#Pulmonary HTN
#HLD
#CAD sp CABG and failed PCI
#bioprosthetic MVR
#PAD s/p stenting
#Orthostatic hypotension
COnt home meds
COnt anticoag - heparin and switched back to Eliquis on 10/21/23
#Recurrent hyperkalemia
low potassium diet
CPK not elevated, no kidney failure, no medications that can cause elevation of potassium. Most likely diet-related
#DM type 2 with neuropathy
Insulin SS< dm diet
Hold oral hypoglycemics
#Cholelithiasis without cholecystitis
Asymptomatic
#Intermittent hypercarbia, most likely MAGY
#Emphysematous changes on CT
#Mediastinal and perihilar lymphadenopathy
outpatient sleep study
pulmonology consult
WIll also need repeated chest CT imaging later after recovery from acute illness
#Chronic opioid-induced constipation
Stool regimen originally held by [facility]orectal[facility], will restart on 10/25/23 gradually (agreed with Sx team)
DVT ppx hep drip
Full code
I have spent at least 56min reviewing chart, test results, communication with consultants and direct patient care
Anticipated Discharge: 24 - 48 hours
Subjective/Interval History
-
Date of Service: October 25, 2023
Objective Data
-
Labs:
Laboratory Results
10/25/23
05:26
WBC 16.6 H
Hgb 7.9 L
Hct 23.8 L
Plt Count 331
Sodium 133 L
Potassium 5.5 H D
Chloride 95 L
Carbon Dioxide 34 H
BUN 15
Creatinine 0.8
Glucose 126 H
Calcium 8.5
Total Bilirubin 0.6
AST 43
ALT 21
Alkaline Phosphatase 97
Vital Signs:
Vital Signs
Temp Pulse Resp BP Pulse Ox
98.4 F 81 15 105/53 97
10/25/23 07:31 10/25/23 07:31 10/25/23 07:31 10/25/23 07:31 10/25/23 07:31
I&O
10/24/23 10/25/23 10/26/23
06:59 06:59 06:59
Intake Total 1200 / 1200 1200 / 1200
Balance 1200 / 1200 1200 / 1200
Physical Exam
-
General: No Apparent Distress
HEENT: Normocephalic
Respiratory: Clear to Auscultation
Cardiac: Regular Rhythm
GI: Soft, Nontender and Nondistended
Skin: Warm
Neuro: Awake, Alert, Oriented and AO x 3
Psych: Calm
[2023-10-25] MEDS: MIRALAX 17 GRAMS PO (11:33)
[2023-10-25 11:36] LABS: Glucose - Point of Care 197 mg/dl (70-99)
--- NOTE | 2023-10-25 11:42 | W.PN.CRS1 ---
Today's Communication / Plan
-
no changes from CRS standpoint
Assessment/Plan
-
73 yo male with h/o Afib on Eliquis, DM who presented with likely ischemic (week Doppler signal in the ileocolic pedicle) segmental colitis of the ascending colon and s/p ex lap, right hemicolectomy and tap block on 10/13/23
AFVSS
Leukoctyosis present: ID following
10/19/23 CT a/p: no intra-abdominal abscess
Tolerating diet with +bowel function
Doing well from colorectal surgery standpoint
Continue diet as tolerated, NPO for ICD tentatively tomorrow
Analgesics as needed
Subjective Data
Procedure
10/13/2023-Exploratory laparotomy, right hemicolectomy, TAP block
Subjective Data
Date of Service: October 25, 2023
Patient seen and examined at bedside with Dr. Cid. Denies acute abdominal complaints. Some incisional soreness persists but otherwise no pain. Tolerating diet.
Objective Data
-
Vital Signs
Temp Pulse Resp BP Pulse Ox
98.3 F 87 16 104/53 98
10/25/23 11:00 10/25/23 11:00 10/25/23 11:00 10/25/23 11:00 10/25/23 11:00
Intake & Output
10/24/23 10/25/23 10/26/23
06:59 06:59 06:59
Intake Total 1200 / 1200 1200 / 1200
Balance 1200 / 1200 1200 / 1200
Intake:
Oral fluids 1200 / 1200 1200 / 1200
Other:
Number of approximated SMALL 3
amounts of urine
Number of approximated MODERATE 2 5
amounts of urine
Lab Results
10/25/23 05:26
10/25/23 05:26
Physical Exam
-
General: No Acute Distress and AOx3
HEENT: Grossly Normal
Abdomen: Soft, Non Distended, Non Tender, No Rebound and No Bowel Movement
Skin: Warm and Dry
Wound: No Signs of Infection, No Skin Erythema and Other (Midline with janet, open to air)
--- NOTE | 2023-10-25 13:00 | W.PN.PUL3 ---
Today's Communication / Plan
-
Would obtain CT chest without contrast in 6 months, Feb-Mar
Follow-up with pulmonary at that time. Information left in chart
We will sign off. Please call with questions
Assessment
-
73-year-old male with complex history including atrial fibrillation, COPD, CAD, PAF, PAD, bladder and prostate cancer as well as diabetes and chronic heart failure in addition to chronic pain and chronic opioid dependence and mitral valve
replacement, admitted 10/12/2023 with abdominal discomfort. Hospital stay reviewed. Patient underwent exploratory laparotomy with right hemicolectomy for what was suspected to be ischemic colitis. He has recovered, then developed monomorphic VT,
now being evaluated for ICD. CT chest obtained and we are asked to comment on findings 10/24/2023
Acute colitis status post right colectomy 10/14/2023
Admitted 10/12/2023
Presented with abdominal pain, nausea
Acute on chronic heart failure
Bilateral effusions per CT imaging
Monomorphic VT 10/22/2023
Awaiting ICD 10/25
Mediastinal/hilar adenopathy per CT chest 10/24/2023
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
Worsening mitral valve gradients per echo 10/23/2023
Pulmonary hypertension
PA pressure 78, progressive per echo 10/23/2023
Coronary disease
History of CABG
History of unsuccessful attempted PCI LAD 2015
Atrial fibrillation on anticoagulation
Peripheral arterial disease
Right femoral endarterectomy, right iliac stent 2015
Right SFA and popliteal [employer]/stent 2019
Left great toe amputation 2014, chronic wound issues in the past
Bilateral femoropopliteal bypass 2015
Status post left carotid endarterectomy 2022
History of cardiomyopathy EF 15%, improved per recent echo, now 68%
Conditions present prior to admission
COPD
[id number] history of smoking quit 2007
Bladder cancer.�
Prostate cancer
Prostatectomy 2007
Diabetes.�
Chronic pain syndrome, chronic opioid use
Marijuana use for pain
Hypertension/Hyperlipidemia.�
DNR
Plan/recommendations
At this time, patient appears to be comfortable
Extensive medical records reviewed
Ongoing cardiac issues noted, echocardiogram findings noted
Plan for ICD, possible additional cardiac workup including catheterization noted
We are asked to comment on his CT chest findings
He has bilateral pleural effusions, right greater than left
Suspect this is from volume overload, heart failure
Patient remains without pulmonary symptoms
Adenopathy is noted, 2.8 cm hilar lymph node
No parenchymal abnormality per my review
Moving forward
No further workup from a pulmonary standpoint
He was last seen in the pulmonary office and only seen in September 2022. Has not followed up since
At that time, FEV1 2.24/62%
It was recommended that he start inhaler therapy but patient never followed up (Anoro)
Given his lack of symptoms and tachyarrhythmias, will hold off on starting any inhaler therapy at this time
If he were to develop increased pulmonary symptoms, we could revisit this
With regards to his adenopathy, I suspect this could be explained with volume overload
No further testing at this time
Would consider repeat CT chest in 6 months without contrast
This can be done as outpatient and we will gladly follow up with him at that time. He is agreeable
Follow-up information left in chart
DVT prophylaxis: Was on warfarin in the past, presently on Eliquis, currently held for possible ICD. Sequential teds
GI prophylaxis: Not indicated
We will sign off. Please call with questions
Diagnostic data:
Chest x-ray 03/03/2023: No active disease
Echo 10/23/2023: Normal biventricular function, EF 68%, mitral valve gradients have worsened, moderate MR, PA pressure 78, worsened
Echocardiogram 09/01/2022: EF 50%, bioprosthetic mitral valve, aortic sclerosis, normal right heart, cannot measure right heart pressures
Cardiac catheterization 01/23/2020-left main and three-vessel CAD occlusion, patent sequential SVG to diagonal OM PDA and collaterals to LAD, known occluded QUIÑONES to LAD, anterolateral wall hypokinesis
Subjective Data
-
Date of Service:
Date of Service: October 25, 2023
Subjective:
Patient examined earlier this morning. Patient denies any shortness of breath, chest pain. Mild abdominal discomfort noted. Denies cough. Appears to be in good spirits
Objective Data
Data Reviewed
Vital Signs / I&O / Oxygen:
Vital Signs
Temp Pulse Resp BP Pulse Ox
98.3 F 87 16 104/53 98
10/25/23 11:00 10/25/23 11:00 10/25/23 11:00 10/25/23 11:00 10/25/23 11:00
Intake and Output
10/24/23 10/25/23 10/26/23
06:59 06:59 06:59
Intake Total 1200 / 1200 1200 / 1200
Balance 1200 / 1200 1200 / 1200
SaO2 98
Nasal Cannula flow liters per 2
minute
Physical Exam
General: Comfortable
HEENT: Normocephalic and Anicteric
Cardiovascular: S1-S2, Regular Rhythm, Murmur (n) and Rub (n)
Respiratory: Wheeze (n), Crackles (n), Rhonchi (n) and Non-Labored Respirations
GI: Soft, Non Distended, Tender (Mild) and Other (Lower abdominal incision intact)
Neurology: Awake, Alert and No Motor Deficits
Skin: Cyanosis (n), Jaundice (n) and Rash (n)
Labs/Micro/Reports
Lab Data
10/25/23 05:26
10/25/23 05:26
Microbiology
10/19/23 14:54 Blood/Venous Blood Culture - Final
No Growth - Final Report
[2023-10-25] MEDS: FERRLECIT 110 MG IV (13:28)
--- NOTE | 2023-10-25 14:42 | W.PN.CARDCBS ---
Today's Communication / Plan
-
Uptitrate metoprolol
Monitor on telemetry
Tentative plan for ICD
Impression / Plan
-
PCP: Dr. Sivakumar Patel
Primary Ripening Room Attendant: Dr. Garcia
Impression:
-Presentation with abd pain, N/V
-Acute colitis s/p R colectomy 10/13
-Post op ileus, improving
-Acute on chronic HFpEF
-Sustained monomorphic VT evening of 10/22/23
-Hx Recovered CM: CM EF 15-20% by echo Jan 2020 with EF 30% by echo 04/20/19 with h/o recovered CM EF 65% by echo 05/2022, EF 53% by echo 07/20/23
-CAD
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
CABG with occluded QUIÑONES to LAD by cath 2019, but patent SVG seq to Diag-OM-PDA 02/2014
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
-PAD s/p right femoral endarterectomy and right iliac stenting 02/2016
-PAD s/p right SFA and popliteal [employer]GER and stent 10/24/19
-possible TIA with noted L carotid stenosis s/p L CEA 03/03/23
-Paroxysmal Afib
-Chronic Eliquis OAC
-HTN
-Moderate to severe chronic obstructive pulmonary disease
-DM2 with Diabetic neuropathy
-Pulmonary HTN
-Hx prostate cancer s/p surgery 2007
-Medical marijuana use
-former smoker
CATH 2019: Left main and three-vessel [place] coronary total occlusions, patent sequential SVG to diagonal/OM/PDA with collaterals to LAD, and occluded QUIÑONES to LAD, anterolateral wall hypokinesis with mild LV dysfunction
Echo 08/2022: Mild LVH, mid to apical anterior and anteroseptal hypokinesis, EF 50%, bioprosthetic mitral valve with peak/mean gradients 10/6 mmHg, GASTON 1.5 cm�, trace MR, dilated left atrium, aortic sclerosis, normal right heart cardiac
Echo 07/20/2023: EF 53%, mild concentric LVH. Bovine mitral valve replacement well-seated peak/mean gradient 20/10 mmHg with MV area 1.4 cm�, moderate MS with mild to moderate MR. Mild TR with PAP 35 mmHg
ECHO 10/23/23: EF 68%, flattened septum in systole consistent with RV pressure overload, severely dilated left atrium, bovine mitral valve replacement with peak/mean gradients of 43/22 mmHg, concern for at least moderate bioprosthetic MS, moderate MR,
moderate TR, PAP 78 mmHg
Plan:
-Patient presented with abd pain, N/V. found by CTAP to have acute colitis s/p R colectomy 10/13/23. Post op ileus 10/16, resolved. tolerating low res diet. continue post op care
-Has been transitioned back to OP eliquis and lasix
-Home Toprol uptitrated to allow LV filling in the setting of prosthetic mitral valve stenosis
-Evening of 10/21, had episode of ~43 seconds of sustained monomorphic VT, fortunately broke with coughing. no further VT noted on tele overnight
-Tentative plan for ICD placement Wednesday 10/25
-Echo with results as above
-Given significant CAD and anemia recommend transfusion goal of hgb >8.0
-Would repeat TTE as an outpatient and then potentially GLADIS to further evaluate mitral valve once recovered from colectomy and ICD placement - would consider referral for TMVR
Progress Note - Ripening Room Attendant
Subjective
Date of Service: October 25, 2023
No acute overnight events. Patient is resting comfortably this morning. No significant lightheadedness or dizziness.
Objective
Labs:
10/25/23 05:26
10/25/23 05:26
Labs
Hgb 7.9 g/dL (13.0-18.0) L 10/25/23 05:26
Hct 23.8 % (39.0-52.0) L 10/25/23 05:26
Plt Count 331 10^3/uL (130-400) 10/25/23 05:26
APTT 91.7 Sec (23.4-35.0) H 10/21/23 05:46
Sodium 133 mmol/L (135-145) L 10/25/23 05:26
Potassium 5.5 mmol/L (3.5-5.1) H D 10/25/23 05:26
BUN 15 mg/dl (9-20) 10/25/23 05:26
Creatinine 0.8 mg/dL (0.7-1.3) 10/25/23 05:26
Glucose 126 mg/dl (70-99) H 10/25/23 05:26
Troponins
10/23/23
09:59
Troponin I < 0.012
Vital Signs and I&O:
Vital Signs
Temp Pulse Resp BP Pulse Ox
98.3 F 87 16 104/53 98
10/25/23 11:00 10/25/23 11:00 10/25/23 11:00 10/25/23 11:00 10/25/23 11:00
Vital Signs
Temp Pulse Resp BP Pulse Ox
98.3 F 87 16 104/53 98
10/25/23 11:00 10/25/23 11:00 10/25/23 11:00 10/25/23 11:00 10/25/23 11:00
Intake & Output
10/23/23 10/24/23 10/25/23 10/26/23
06:59 06:59 06:59 06:59
Intake Total 960 / 960 1200 / 1200 1200 / 1200
Balance 960 / 960 1200 / 1200 1200 / 1200
Physical Exam
Physical Exam
Gen: NAD, AAOx3
HEENT: NC/AT, sclera anicteric
Neck: No JVD
CV: RRR, NL s1/s2, 2/6 HSM at the apex
Lungs: CTAB
Abd: S/ND
Ext: No LE edema
Skin: Warm, dry
Neuro: Non-focal
[2023-10-25] MEDS: ProAmatine 5 MG PO (15:07)
[2023-10-25] MEDS: LASIX 40 MG PO (16:03)
[2023-10-25] MEDS: DILAUDID 1 MG IV (16:11)
[2023-10-25 16:56] LABS: Glucose - Point of Care 265 mg/dl (70-99)
[2023-10-25] MEDS: LIPITOR 80 MG PO (17:18)
[2023-10-25] MEDS: NOVOLOG FLEXPEN-LOW RESISTANCE 3 UNITS SC (17:18)
[2023-10-25] MEDS: TOPROL XL 37.5 MG PO (19:57)
[2023-10-25] MEDS: AMBIEN 5 MG PO (22:26)
[2023-10-25 22:34] LABS: Glucose - Point of Care 215 mg/dl (70-99)
[2023-10-26] VITALS (17 sets, daily range): BP systolic 67–157; BP diastolic 43–74; BMI 22.1
[2023-10-26 06:50] LABS: % Basophils 0.6 % (0-2); % Eosinophils 5.2 % (0-6); % Immature Granulocytes 0.9 % (0-0.5); % Lymphocytes 9.7 % (20.5-51.1); % Monocytes 8.9 % (1.7-9.3); % Neutrophils 74.7 % (42.2-75.2); Absolute Basophils 0.1 10^3/uL (0-0.2); Absolute Eosinophils 0.9 10^3/uL (0-0.7); Absolute Immature Granulocytes 0.2 10^3/uL (0-0.05); Absolute Lymphocytes 1.7 10^3/uL (1.2-3.4); Absolute Monocytes 1.6 10^3/uL (0.1-0.6); Hematocrit 23.5 % (39.0-52.0); Hemoglobin 7.8 g/dL (13.0-18.0); Mean Corp Hgb Conc. 33.2 g/dL (33.0-37.0); Mean Corpuscular Hgb 27.8 pg (27.0-31.0); Mean Corpuscular Volume 83.6 fL (80.0-94.0); Mean Platelet Volume 10.2 fL (7.4-10.4); Nucleated Red Blood Cells % 0 % (-); Platelet Count 328 10^3/uL (130-400); Red Blood Cell Count 2.81 10^6/uL (4.70-6.10); Red Cell Dist. Width 15.7 % (11.5-14.5); White Blood Cell Count 17.4 10^3/uL (4.8-10.8)
[2023-10-26] MEDS: NOVOLOG FLEXPEN-LOW RESISTANCE SC ×2 (07:30→12:14)
[2023-10-26 07:34] LABS: ALT (SGPT) 20 U/L (0-50); AST (SGOT) 34 U/L (17-59); Albumin 3.2 g/dl (3.5-5.0); Alkaline Phosphatase 103 U/L (38-126); Blood Urea Nitrogen 17 mg/dl (9-20); Calcium 8.5 mg/dl (8.4-10.2); Carbon Dioxide 34 mmol/L (22-30); Chloride 95 mmol/L (98-107); Estimated Creatinine Clearance 82 ml/min; Glucose 124 mg/dl (70-99); Potassium 5.4 mmol/L (3.5-5.1); Sodium 134 mmol/L (135-145); Total Bilirubin 0.7 mg/dl (0.2-1.3); Total Protein 5.9 g/dl (6.3-8.2); eGFR > 60.00
[2023-10-26] MEDS: DILAUDID 1 MG IV (08:22)
[2023-10-26 08:44] LABS: Glucose - Point of Care 162 mg/dl (70-99)
[2023-10-26] MEDS: NOVOLOG FLEXPEN-LOW RESISTANCE 1 UNITS SC (09:08)
[2023-10-26] MEDS: MIRALAX PO (09:42)
[2023-10-26] MEDS: LASIX PO (09:42)
[2023-10-26] MEDS: MS CONTIN (EXTENDED RELEASE) 15 MG PO ×2 (10:56→20:57)
[2023-10-26] MEDS: TOPROL XL 37.5 MG PO ×2 (10:57→21:03)
[2023-10-26] MEDS: COLACE 100 MG PO ×2 (10:57→20:59)
[2023-10-26] MEDS: NEURONTIN 600 MG PO ×2 (10:59→20:57)
[2023-10-26 11:03] LABS: Potassium 5.3 mmol/L (3.5-5.1)
[2023-10-26 11:04] LABS: Lactic Acid 1.7 mmol/L (0.7-2.0)
[2023-10-26 11:16] LABS: Procalcitonin 0.05 ng/ml (0.0-0.25)
--- NOTE | 2023-10-26 11:17 | W.PN.HOSP.TC ---
Today's Communication/Plan
-
Cardio for ICD
Nephro for hyperkalemia
encourage ambulation
Recheck procalcitonin with persistent leukocytosis
repeat VBG in AM
trial of CPAP at highttime
Assessment / Plan
Assessment / Plan
73yo M with PMHx of HLD, CAD s/p PCI and CABG, HFrEF with recovered EF, bioprosthetic MVR, PAD s/p R femoral endarterectomy and R SFA and stent, Hx of TIA, carotid stenosis s/p L CEA, paroxysmal afib, HTN, pulmonary HTN, Hx of prostate CA, former
smoker came with nausea and vomiting, found ascending colitis on CT with concern for ischemic colitis, s/p R colectomy on 10/13. Has persistent leukocytosis most likely 2/2 recent Sx, however started to resolve off Abx. Had BM and advanced to regular
diet on 10/22/23. Developed VT on 10/22/23 and has indication for ICD, which is planned for 10/26/23 by cardiology
Developed recurrent hyperkalemia with mild respiratory acidosis, MAGY might be playing the role. Also now postOP ileus
A/P:
#VT
around 40sec run on 10/22/23
Cardio follows: will need ICD
cont telemetry
Echo: Bioprosthetic MV disfunction noted on Echo -cardiology to follow, might need GLADIS/cath
Severely increased RV pressures - can be 2/2 MV dysfunction
CTA chest neg for PE
#Colitis, ischemic (as per pathology)
#Post OP ileus
s/p ex lap with hemicolectomy and primary anastomosis on 10/13 with persistent leukocytosis
Worsening leukocytosis however no new acute fluid collection or abscess on CT on 10/19/23
Bcx repeated, NTD
Procalcitonin low
ID recommends to follow off Abx
[facility]orectal[facility] follows
Had normal postOP BM, then developed ileus. COnt laxatives and milk of magnesia
#Recurrent hyperkalemia
low potassium diet
CPK not elevated, no kidney failure, no medications that can cause elevation of potassium. Most likely diet-related, cannot exclude 2/2 nocturnal hypercarbia
Nephrology consult
Pulm to assess for MAGY mgmt recommendations
#Acute on chronic HFrEF
Recovered EF as of july 2023
Cardio follows: medications restarted
Lasix PRN
#Anemia of chronic disease exacerbated by acute loss because of the surgery and LILIANA
IV iron
follow Hgb - stable
#Paroxysmal Afib
#Pulmonary HTN
#HLD
#CAD sp CABG and failed PCI
#bioprosthetic MVR
#PAD s/p stenting
#Orthostatic hypotension
COnt home meds
COnt anticoag - heparin and switched back to Eliquis on 10/21/23
#Recurrent hyperkalemia
low potassium diet
CPK not elevated, no kidney failure, no medications that can cause elevation of potassium. Most likely diet-related
#DM type 2 with neuropathy
Insulin SS< dm diet
Hold oral hypoglycemics
#Cholelithiasis without cholecystitis
Asymptomatic
#Intermittent hypercarbia, most likely MAGY
#Emphysematous changes on CT
#Mediastinal and perihilar lymphadenopathy
outpatient sleep study
pulmonology consult: WIll also need repeated chest CT in 3-6months
#Chronic opioid-induced constipation
Stool regimen originally held by [facility]orectal[facility], will restart on 10/25/23 gradually (agreed with Sx team)
DVT ppx hep drip
Full code
I have spent at least 56min reviewing chart, test results, communication with consultants and direct patient care
Anticipated Discharge: > 48 hours
Subjective/Interval History
-
Date of Service: October 26, 2023
Objective Data
-
Labs:
Laboratory Results
10/26/23 10/26/23
06:30 10:35
WBC 17.4 H
Hgb 7.8 L
Hct 23.5 L
Plt Count 328
Sodium 134 L
Potassium 5.4 H 5.3 H
Chloride 95 L
Carbon Dioxide 34 H
BUN 17
Creatinine 0.9
Glucose 124 H
Calcium 8.5
Total Bilirubin 0.7
AST 34
ALT 20
Alkaline Phosphatase 103
Vital Signs:
Vital Signs
Temp Pulse Resp BP Pulse Ox
98.2 F 77 14 98/40 93
10/26/23 07:05 10/26/23 10:57 10/26/23 07:05 10/26/23 10:57 10/26/23 07:05
I&O
10/25/23 10/26/23 10/27/23
06:59 06:59 06:59
Intake Total 1200 / 1200 1310 / 1310
Output Total 475 / 475
Balance 1200 / 1200 835 / 835
--- NOTE | 2023-10-26 11:29 | W.PN.ID1 ---
Date of Service
Date of Service: October 26, 2023
Today's Communication
Continue to observe off abx.
Assessment / Plan
# Leukocytosis continues to trending up
- Afebrile, no bandemia.
-Pt with multiple underlying conditions at that may explain elevated WBC:
reactive due to recent cardiac events with sustained VT, acute on chronic heart failure, bioprosthetic MVR stenosis
ileus - airfluid level in left gerard-abdomen, last bowel movement 10/21
- Remains no signs and sxs of infection
- Continue to monitor off abx.
# Recent Ischemic colitis s/p right hemicolectomy 10/13/23.
- 10/19/23 CT a/p: no intra-abdominal abscess.
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
DM-II with Neuropathy
Chronic HFpEF
Chronic hypotension
COPD
Bioprosthetic MVR
CAD s/p CABG
Paroxysmal Atrial Fibrillation
PAD s/p RLE stent, s/p Bilateral Fem-Pop Bypass
Left CEA
Bladder Cancer s/p TURBT (07/2023)
Prostate Cancer s/p prostatectomy
Chronic Pain / Chronic Opioid Dependence
Left hallux amputation
Left shoulder surgery
Chief Complaint
-: Leukocytosis
Subjective / Review of Systems
Still no BM. Tolerating diet.
No chills/sweats. No cough/SOB/urinary symptoms.
Vital Signs / Physical Exam
Vital Signs
Vital Signs
Temp Pulse Resp BP Pulse Ox
98.2 F 77 14 98/40 93
10/26/23 07:05 10/26/23 10:57 10/26/23 07:05 10/26/23 10:57 10/26/23 07:05
Physical Exam
Constitutional: No Acute Distress and Comfortable
Head: Other (No frontal or maxillary sinus tenderness)
Cardiovascular: Regular Rate and S1/S2
Pulmonary: Clear
Gastrointestinal: Soft, Non Tender, Non Distended and Decreased Bowel Sounds
Genito-Urinary: Negative CVA Tenderness
Extremities: Negative Edema
Musculoskeletal: Negative Spinal Tenderness
Neurological: AO x 3
Objective Data
Lab Data
Lab Results
10/26/23 06:30
10/26/23 10:35
APTT 91.7 Sec (23.4-35.0) H 10/21/23 05:46
Estimated Creat Clear 82 ml/min 10/26/23 06:30
Lactic Acid 1.7 mmol/L (0.7-2.0) 10/26/23 10:35
Total Bilirubin 0.7 mg/dl (0.2-1.3) 10/26/23 06:30
AST 34 U/L (17-59) 10/26/23 06:30
ALT 20 U/L (0-50) 10/26/23 06:30
Alkaline Phosphatase 103 U/L (38-126) 10/26/23 06:30
Most recent labs reviewed.
Micro Results:
10/19/23 14:54 Blood Culture - Final
Blood/Venous No Growth - Final Report
10/12/23 17:17 Blood Culture - Final
Blood/Venous No Growth - Final Report
10/12/23 17:17 Blood Culture - Final
Blood/Venous No Growth - Final Report
10/26/23 CXR/AXR: Air-fluid levels in nondilated small bowel loops in the left hemiabdomen which may represent ileus.
10/19/23 CT a/p: No acute abnormality in the abdomen or pelvis following right hemicolectomy. Trace free fluid in the right paracolic gutter along with minimal residual inflammatory changes from recent surgery. No evidence of abscess or drainable
fluid collection. No evidence of anastomotic leak.
10/15/23 CXR: Mild interstitial pulmonary edema with small right pleural effusion.
10/12/23 CT a/p: Acute colitis involving the ascending colon. No extraluminal fluid collection or free air. Findings are likely infectious/inflammatory. The SMA is markedly atherosclerotic, however the distal branches do appear patent.
[2023-10-26 12:04] LABS: Glucose - Point of Care 144 mg/dl (70-99)
--- NOTE | 2023-10-26 13:07 | W.PN.PUL3 ---
Today's Communication / Plan
-
Prior ABG/VBG reviewed
No indication for CPAP therapy at this time
Do not feel it is related to hyperkalemia
Family at bedside states that they will consider following up as outpatient
CPAP discontinued
We will sign off. Please call with questions
Assessment
-
73-year-old male with complex history including atrial fibrillation, COPD, CAD, PAF, PAD, bladder and prostate cancer as well as diabetes and chronic heart failure in addition to chronic pain and chronic opioid dependence and mitral valve
replacement, admitted 10/12/2023 with abdominal discomfort. Hospital stay reviewed. Patient underwent exploratory laparotomy with right hemicolectomy for what was suspected to be ischemic colitis. He has recovered, then developed monomorphic VT,
now being evaluated for ICD. CT chest obtained and we are asked to comment on findings 10/24/2023
Acute colitis status post right colectomy 10/14/2023
Admitted 10/12/2023
Presented with abdominal pain, nausea
Acute on chronic heart failure
Bilateral effusions per CT imaging
Monomorphic VT 10/22/2023
Awaiting ICD 10/25
Mediastinal/hilar adenopathy per CT chest 10/24/2023
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
Worsening mitral valve gradients per echo 10/23/2023
Pulmonary hypertension
PA pressure 78, progressive per echo 10/23/2023
Coronary disease
History of CABG
History of unsuccessful attempted PCI LAD 2015
Atrial fibrillation on anticoagulation
Peripheral arterial disease
Right femoral endarterectomy, right iliac stent 2015
Right SFA and popliteal INTERNATIONAL ACCOUNTANT/stent 2019
Left great toe amputation 2014, chronic wound issues in the past
Bilateral femoropopliteal bypass 2015
Status post left carotid endarterectomy 2022
History of cardiomyopathy EF 15%, improved per recent echo, now 68%
Conditions present prior to admission
COPD
[id number] history of smoking quit 2007
Bladder cancer.�
Prostate cancer
Prostatectomy 2007
Diabetes.�
Chronic pain syndrome, chronic opioid use
Marijuana use for pain
Hypertension/Hyperlipidemia.�
DNR
Plan/recommendations
Asked to see patient again regarding CPAP machine by primary service
Primary service concerned about hyperkalemia and patient sleep apnea/hypercapnia causing his hyperkalemia and workup for home CPAP
Patient is not available for my assessment but at bedside was available
Patient has been tested for sleep apnea as outpatient which was negative
At this point, would not treat with CPAP therapy
Patient would benefit from outpatient evaluation but states that patient is not interested in this at this time
I would agree, I would focus on treating underlying cardiac issues at this time
Reiterated recommendation for outpatient CT chest February 2024
I discontinued CPAP
No indication for maintenance inhaler therapy at this time
Patient currently receiving ICD placement
.
DVT prophylaxis: Was on warfarin in the past, presently on Eliquis, currently held for ICD
GI prophylaxis: Not indicated
We will sign off. Please call with questions
Diagnostic data:
Chest x-ray 03/03/2023: No active disease
Echo 10/23/2023: Normal biventricular function, EF 68%, mitral valve gradients have worsened, moderate MR, PA pressure 78, worsened
Echocardiogram 09/01/2022: EF 50%, bioprosthetic mitral valve, aortic sclerosis, normal right heart, cannot measure right heart pressures
Cardiac catheterization 01/23/2020-left main and three-vessel CAD occlusion, patent sequential SVG to diagonal OM PDA and collaterals to LAD, known occluded QUIÑONES to LAD, anterolateral wall hypokinesis
Subjective Data
-
Date of Service:
Date of Service: October 26, 2023
Subjective:
Patient does not present for my assessment. Family at bedside.
Objective Data
Data Reviewed
Vital Signs / I&O / Oxygen:
Vital Signs
Temp Pulse Resp BP Pulse Ox
97.9 F 76 18 90/53 97
10/26/23 11:00 10/26/23 11:00 10/26/23 11:00 10/26/23 11:00 10/26/23 11:00
Intake and Output
10/25/23 10/26/23 10/27/23
06:59 06:59 06:59
Intake Total 1200 / 1200 1310 / 1310
Output Total 475 / 475
Balance 1200 / 1200 835 / 835
SaO2 97
Nasal Cannula flow liters per 2
minute
Labs/Micro/Reports
Lab Data
10/26/23 06:30
10/26/23 10:35
Microbiology
10/19/23 14:54 Blood/Venous Blood Culture - Final
No Growth - Final Report
--- NOTE | 2023-10-26 13:18 | PTCARENOTE ---
Telephone report given to Vik; second set of CHG wipes completed; attends removed; patient picked up by Cardiovascular staff at time of this note.
--- NOTE | 2023-10-26 14:27 | CM ---
Plan for ICD when medically cleared for procedure. Discharge Plan of Care: [facility], PT/OT.
--- NOTE | 2023-10-26 14:56 | ITS.CL.ICD ---
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
Implantable Cardioverter Defibrillator
Procedure Report:
ICD IMPLANTATION REPORT
Date of Procedure: October 26, 2023
PCP: Dr. Sivakumar Patel
Primary Change Of Address Clerk: Dr. Chris Garcia
PROCEDURES:
ICD Implant
INDICATION FOR PROCEDURE:
Secondary prevention ICD implantation. Patient has had sustained monomorphic self terminating ventricular tachycardia
Lidocaine with epi was used for local anesthesia. Central venous access was obtained via axillary venipuncture. An incision was made along the left chest and a pre-pectoral pocket was formed. Using a Seldinger technique and peel-away sheaths, the
pacing leads were placed under fluoroscopic guidance.
Once testing (see below) showed adequate and stable function, the leads were secured using the suture sleeves. The pocket was liberally irrigated with antibiotic solution. The leads were connected to the generator header and the leads and
generator were placed within the pocket. Fluoroscopy confirmed stable lead position. The pocket was closed in the typical fashion.
FLUOROSCOPY:
Fluoroscopy was used to guide lead placement.
IMPLANTS:
ICD Medtronic [id number], SN [id number], Left Pectoral
RA Medtronic 5076, SN [id number], RAA
RV Medtronic 6935, SN [id number], RV apical septum
DEVICE TESTING:
Sensing: RA 0.75 mV, RV 5.5 mV
Capture: RA 0.75 V@0.5ms, RV 0.5 V@0.5ms
Ohms: RA 440, RV 420
FINAL PROGRAMMING:
Waylon Pacing: AAIR <=>DDDR 50-130 ppm
Tachy parameters:
VF: 188 bpm, Shock
VT via VF: 188 - 240 bpm, ATP X 1, Shock
VT: 150 bpm, Monitor
COMPLICATIONS:
None
CONCLUSIONS:
Successful implant of dual chamber ICD system.
Normal function of ICD and leads at implant testing.
RECOMMENDATIONS:
Post op care (tele, CXR, IV abx).
In-Office wound check in 5-7 days.
Copy to:
Dr. Sivakumar Patel
Dr. Chris Garcia
[2023-10-26 15:31] LABS: Glucose - Point of Care 171 mg/dl (70-99)
[2023-10-26] MEDS: NEURONTIN PO (16:15)
[2023-10-26] MEDS: MS CONTIN (EXTENDED RELEASE) PO (16:15)
--- NOTE | 2023-10-26 16:40 | PTCARENOTE ---
Patient received from [facility] @16:05 (report received from Mer that patient was sleepy, HR stable, responsive), upon arrival to [facility] order noted for CXR post procedure, Mer returned to [facility] and brought patient to inpatient
radiology. Patient had Dual Chamber ICD to (L) Anterior chest wall; VSS, 94% on 2L; dressing cdi, left arm in sling; AAO but remains drowsy; will continue to observe.
--- NOTE | 2023-10-26 16:52 | W.ICD.CONTRA ---
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
-
History of CA?: No
LV Function
Left ventricular function study result?: Ejection Fraction >/= 40%
ACEI/ARB/ARNI
Patient already on ACEI/ARB/ARNI: No
ACEI/ARB/ARNI Contraindication: Hypotension
Beta-Antony
Patient already on Beta Antony: Yes
--- NOTE | 2023-10-26 17:07 | W.CON.NEPH ---
Consultation
-
Date/Time Consultation Requested: 10/26/23 0912
Date/Time Consultation Performed: 10/26/23 1715
Requesting Provider: Meir Bass
Performing Provider: Tara No
Reason for Consultation: Hyperkalemia
Medical History
-
Chief Complaint: SOB, right side abd pain
History of Present Illness:
Patient is 73-year-old male with complex medical history CAD, CHF on lasix, Afib on AC with Eliquis, HLD on statin, type 2 DM on metformin, glipizide, Chr pain on Morphine, orthostatic hypotension on midodrine, D neuropathy on gabapentin who
presented on 10/12/2023 with shortness of breath and right-sided abdominal discomfort with constipation, was seen by surgery. Right-sided colitis was suspected based on CT imaging. Patient underwent exploratory laparotomy with right hemicolectomy,
likely ischemic segmental colitis on 10/12. Diet being advancing and Patient then developed 30 seconds of sustained monomorphic VT on 10/21. Echocardiogram showed suspected bioprosthetic mitral valve dysfunction with moderate MR and new severe
pulmonary hypertension. Patient was seen by EP and underwent ICD today. Nephrology consulted for recurrent hyperkalemia 5.4 despite on lasix. He seem to have chr intermittent hyperkalemia for years and not particularly following low k diet. Per
no voiding issues. History is limited since pt just returned from procedure and sedated still. No reported h/o fever.
Past Medical History
-chronic HFpEF
-CM EF 15-20% by echo Jan 2020 with EF 30% by echo 04/20/19 with h/o recovered CM EF 65% by echo 05/2022
-CAD s/p CABG 02/2014 with occluded QUIÑONES to LAD by cath 2019, but patent SVG seq to Diag-OM-PDA
-CAD s/p unsuccessful attempted PCI of LAD ELECTRICAL TRYOUT PERSON 03/07/16
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
-PAD s/p right femoral endarterectomy and right iliac stenting 02/2016
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
-possible TIA with noted L carotid stenosis s/p L CEA 03/03/23
-Paroxysmal Afib on chronic eliquis
-HTN
-Moderate to severe chronic obstructive pulmonary disease
-DM2 with Diabetic neuropathy
-Pulmonary HTN
-Hx prostate cancer s/p surgery 2007
-concern for bladder cancer s/p TURBT 07/16/23, noninvasive low-grade papillary urothelial carcinoma
-Medical marijuana use
-former smoker
Past Surgical History: Other (Coronary artery bypass graft Mitral valve replacement Left shoulder surgery Prostatectomy Amputation of left great toe)
Social History
Tobacco: Non-Smoker
Alcohol: None
Drug: None
Personal:
Living: With Family
Employment: Retired
Family History
Family History: Not Pertinent
Allergies / Home Medications
Allergy/AdvReac Type Severity Reaction Status Date / Time
fish derived Allergy SEAFOOD-HIV Verified 10/12/23 12:10
ES
�Medication �Instructions �Recorded �Confirmed �Type
atorvastatin 80 mg tablet 80 mg PO QPM High cholesterol 01/19/20 10/12/23 History
gabapentin 600 mg tablet 600 mg PO TID Pain 12/19/22 10/12/23 History
zolpidem 5 mg tablet 5 mg PO HSPRN PRN sleep 12/19/22 10/12/23 History
acetaminophen 325 mg tablet 650 mg (2 x 325 mg) PO Q4HPRN PRN 12/22/22 10/12/23 Rx
mild pain/BRAVO/temp> 100.4F #100 tabs
oxycodone 10 mg tablet 10 mg PO Q6H PRN Pain 02/26/23 10/12/23 History
glipizide 2.5 mg tablet, extended 2.5 mg PO QPM Diabetes #0 tabs 02/27/23 10/12/23 Rx
release 24 hr
metformin 1,000 mg tablet 1,000 mg PO BID Diabetes #0 tabs 02/27/23 10/12/23 Rx
morphine 15 mg tablet,extended 15 mg PO Q8H Pain 07/18/23 10/12/23 History
release
apixaban 5 mg tablet (Eliquis) 5 mg PO BID Blood clot 07/23/23 10/12/23 Rx
prevention/tx #60 tabs
docusate sodium 100 mg capsule 100 mg PO BID Constipation #0 caps 07/23/23 10/12/23 Rx
furosemide 40 mg tablet 40 mg PO BID AT 0800,1600 Fluid 07/23/23 10/12/23 Rx
retention/Swelling #60 tabs
metoprolol succinate 25 mg 12.5 mg (1/2 x 25 mg) PO DAILY 07/23/23 10/12/23 Rx
tablet,extended release 24 hr Heart disease/condition #30 tabs
midodrine 5 mg tablet 5 mg PO TIDPRN PRN dizziness #10 07/23/23 10/12/23 Rx
tabs
polyethylene glycol 3350 17 gram 17 g PO DAILY constipation #0 ea 07/23/23 10/12/23 Rx
oral powder packet (HealthyLax)
sennosides 8.6 mg tablet (Senna 17.2 mg (2 x 8.6 mg) PO BID when 07/23/23 10/12/23 Rx
Laxative) you take opiates #0 tabs
Review of Systems
-
unable to obtain pt sedated
Physical Exam
Vital Signs
Vital Signs
Temp Pulse Resp BP Pulse Ox
97.5 F 67 20 120/51 94
10/26/23 16:24 10/26/23 16:24 10/26/23 16:24 10/26/23 16:24 10/26/23 16:24
Lab Results
WBC 17.4 10^3/uL (4.8-10.8) H 10/26/23 06:30
RBC 2.81 10^6/uL (4.70-6.10) L 10/26/23 06:30
Hgb 7.8 g/dL (13.0-18.0) L 10/26/23 06:30
Hct 23.5 % (39.0-52.0) L 10/26/23 06:30
Plt Count 328 10^3/uL (130-400) 10/26/23 06:30
Sodium 134 mmol/L (135-145) L 10/26/23 06:30
Potassium 5.3 mmol/L (3.5-5.1) H 10/26/23 10:35
Chloride 95 mmol/L (98-107) L 10/26/23 06:30
Carbon Dioxide 34 mmol/L (22-30) H 10/26/23 06:30
BUN 17 mg/dl (9-20) 10/26/23 06:30
Creatinine 0.9 mg/dL (0.7-1.3) 10/26/23 06:30
eGFR > 60.00 10/26/23 06:30
Glucose 124 mg/dl (70-99) H 10/26/23 06:30
Calcium 8.5 mg/dl (8.4-10.2) 10/26/23 06:30
Phosphorus 3.7 mg/dl (2.5-4.5) 10/23/23 06:52
Vri-B-Syzsiavcsea Pept Cancelled 10/23/23 12:53
Albumin 3.2 g/dl (3.5-5.0) L 10/26/23 06:30
8/5:
CT abd/p:
COMPARISON: CT dated 10/12/2023
FINDINGS:
LOWER CHEST: Small right effusion with adjacent atelectasis. No left-sided effusion. Calcifications of the mitral annulus and coronary arteries.
LIVER: Within normal limits.
GALLBLADDER: Cholelithiasis without acute cholecystitis.
BILE DUCTS: Within normal limits.
PANCREAS: Within normal limits.
SPLEEN: Within normal limits.
ADRENALS: Within normal limits.
KIDNEYS/URETERS: Within normal limits.
BOWEL: Postsurgical changes from recent right hemicolectomy there is no bowel obstruction. There is some gaseous distention of the colon. No extraluminal fluid to suggest anastomotic leak. No active inflammatory changes. Some residual fat stranding
in the right lower quadrant, likely postsurgical in nature.
PERITONEUM: Trace somewhat hyperdense free fluid along the right paracolic gutter, likely related to recent surgery. There is no focal fluid collection. There is free air in the subdiaphragmatic region from recent surgery.
REPRODUCTIVE: Within normal limits.
BLADDER: Air in the nondependent portion of the bladder, likely iatrogenic from recent catheterization.
VESSELS: Diffusely atherosclerotic abdominal aorta and its branches. No aneurysm.
RETROPERITONEUM: No retroperitoneal or pelvic lymphadenopathy.
ABDOMINAL WALL: Postsurgical changes. No fluid collection.
BONES: Osseous demineralization. No suspect lesion.
IMPRESSION:
No acute abnormality in the abdomen or pelvis following right hemicolectomy. Trace free fluid in the right paracolic gutter along with minimal residual inflammatory changes from recent surgery. No evidence of abscess or drainable fluid collection.
No evidence of anastomotic leak.
Small right pleural effusion.
Chronic/incidental findings as detailed in the body of the report.
CXR: 10/26/23
IMPRESSION:
Left chest wall defibrillator with lead tips over the right atrium and the right ventricle.
No evidence for significant pneumothorax.
Radiographic findings suggestive of interstitial edema, and findings suggest slight interval increase in edema compared to earlier chest radiograph this same date.
Physical Exam
General: No Distress and Nontoxic
Respiratory: Clear, Normal Excursion and Nonlabored Respirations
Cardiac: S1/S2 and Regular Rate/Rhythm
Breast: Other (left chest wall dressing intact)
Abdomen: Soft, Nontender and Nondistended
Musculoskeletal: No Cyanosis and No Edema
Skin: No Rash
Neuro: Other (sedated)
Psych: Other (sedated)
Data Reviewed
-
Radiology: Report Reviewed by me
Labs: Labs Reviewed by me and Discussed with Family
Assessment/Plan
-
IMP:
VT s/p ICD 10/25
Colitis, ischemic s/p ex lap with hemicolectomy and primary anastomosis on 10/12
Post OP ileus
Recurrent hyperkalemia
mild hyponatremia
Acute on chronic HFrEF
Anemia of chronic disease
Paroxysmal Afib
Pulmonary HTN
HLD
CAD sp CABG and failed PCI
bioprosthetic MVR
PAD s/p stenting
Orthostatic hypotension
DM type 2 with neuropathy
Cholelithiasis without cholecystitis
Intermittent hypercarbia, most likely MAGY
Emphysematous changes on CT
Mediastinal and perihilar lymphadenopathy
Chronic opioid-induced constipation
Plan:
A/w abd pain, colitis s/p exp lap and colectomy on 10/12
Known h/o recurrent hyperkalemia dating back to years
maintain low k diet-reviewed with
check bladder scan to r/o retention, normal CK
suspected MAGY but felt unlikely causing acid base shifts to explain high k, VBG fairly ok
could have hypoaldo state in setting of DM, check U k and cr
also could be from decreased distal sodium delivery with decreased effective art flow with low BPs and low flow state
good renal function
BPs are soft on BB and prn midodrine
CXR noted increasing interstitial edema, would cont lasix and FR 48 ounces/day
dose Lokelma today, likely use twice weekly if needed
avoid constipation as it can exaggerate hyperkalemia
[2023-10-26] MEDS: FERRLECIT 110 MG IV (17:38)
[2023-10-26] MEDS: FLUSH (NSS) 1 FLUSH IV (17:39)
[2023-10-26 18:22] LABS: Glucose - Point of Care 208 mg/dl (70-99)
[2023-10-26] MEDS: NOVOLOG FLEXPEN-LOW RESISTANCE 2 UNITS SC (18:23)
[2023-10-26 20:43] LABS: Glucose - Point of Care 248 mg/dl (70-99)
[2023-10-26] MEDS: LOKELMA 5 GRAM PO (20:59)
[2023-10-26] MEDS: ANCEF 5 IV (21:03)
[2023-10-26 21:44] LABS: Glucose - Point of Care 292 mg/dl (70-99)
[2023-10-26] MEDS: MILK OF MAGNESIA 30 ML PO (22:26)
[2023-10-26] MEDS: LASIX 40 MG PO (22:28)
[2023-10-26] MEDS: LIPITOR 80 MG PO (22:29)
[2023-10-26 22:35] LABS: Glucose - Point of Care 401 mg/dl (70-99)
[2023-10-26 23:18] LABS: Glucose 316 mg/dl (70-99)
[2023-10-26] MEDS: NOVOLOG FLEXPEN 5 UNITS SC (23:47)
[2023-10-27 01:19] LABS: Urine Potassium 57.8 mmol/L (30-90); Urine Sodium 6 mmol/L (30-90)
[2023-10-27 01:40] LABS: Glucose - Point of Care 355 mg/dl (70-99)
[2023-10-27] MEDS: NOVOLOG FLEXPEN 10 UNITS SC (02:02)
[2023-10-27 03:22] VITALS: BP 119/51
[2023-10-27] MEDS: ANCEF 5 IV (04:41)
[2023-10-27 06:00] VITALS: BMI 21.7
[2023-10-27] MEDS: DILAUDID 0.5 MG IV (06:18)
[2023-10-27 07:09] LABS: Venous Blood Gas B.E. 5.9 mmol/L (-4 to +4); Venous Blood Gas HCO3 29.7 mmol/L (22-27); Venous Blood Gas pCO2 39 mmHg (35-48); Venous Blood Gas pH 7.49 (7.32-7.43); Venous Blood Gas pO2 187 mmHg (30-50)
[2023-10-27 07:10] VITALS: BP 83/64
[2023-10-27 07:12] LABS: Glucose - Point of Care 226 mg/dl (70-99)
[2023-10-27] MEDS: NOVOLOG FLEXPEN-LOW RESISTANCE 2 UNITS SC ×2 (08:31→18:25)
[2023-10-27] MEDS: TOPROL XL 37.5 MG PO ×2 (08:33→20:02)
[2023-10-27] MEDS: NEURONTIN 600 MG PO ×3 (08:33→22:16)
[2023-10-27] MEDS: LASIX 40 MG PO (08:34)
[2023-10-27] MEDS: MIRALAX 17 GRAMS PO (08:34)
[2023-10-27] MEDS: COLACE 100 MG PO ×2 (08:34→20:02)
[2023-10-27 08:39] LABS: Hematocrit 27.2 % (39.0-52.0); Hemoglobin 9.2 g/dL (13.0-18.0); Mean Corp Hgb Conc. 33.8 g/dL (33.0-37.0); Mean Corpuscular Hgb 27.2 pg (27.0-31.0); Mean Corpuscular Volume 80.5 fL (80.0-94.0); Mean Platelet Volume 11.2 fL (7.4-10.4); Platelet Count 345 10^3/uL (130-400); Red Blood Cell Count 3.38 10^6/uL (4.70-6.10); Red Cell Dist. Width 15.9 % (11.5-14.5); White Blood Cell Count 22.6 10^3/uL (4.8-10.8)
[2023-10-27 08:58] LABS: ALT (SGPT) 17 U/L (0-50); AST (SGOT) 34 U/L (17-59); Albumin 3.6 g/dl (3.5-5.0); Alkaline Phosphatase 126 U/L (38-126); Blood Urea Nitrogen 27 mg/dl (9-20); Calcium 8.8 mg/dl (8.4-10.2); Carbon Dioxide 26 mmol/L (22-30); Chloride 98 mmol/L (98-107); Estimated Creatinine Clearance 90 ml/min; Glucose 145 mg/dl (70-99); Magnesium 2.9 mg/dl (1.6-2.3); Phosphorus 4.6 mg/dl (2.5-4.5); Sodium 136 mmol/L (135-145); Total Bilirubin 0.6 mg/dl (0.2-1.3); Total Protein 6.6 g/dl (6.3-8.2); eGFR > 60.00
[2023-10-27 09:02] LABS: % Basophils 0.4 % (0-2); % Eosinophils 0.1 % (0-6); % Immature Granulocytes 0.7 % (0-0.5); % Monocytes 5.7 % (1.7-9.3); % Neutrophils 90.1 % (42.2-75.2); Absolute Basophils 0.1 10^3/uL (0-0.2); Absolute Immature Granulocytes 0.2 10^3/uL (0-0.05); Absolute Lymphocytes 0.7 10^3/uL (1.2-3.4); Absolute Monocytes 1.3 10^3/uL (0.1-0.6); Absolute Neutrophils 20.3 10^3/uL (1.4-6.5); Nucleated Red Blood Cells % 0.6 % (-)
--- NOTE | 2023-10-27 09:50 | W.PN.CRS1 ---
Today's Communication / Plan
-
CT scan.
Consider Fleets enema afterwards.
Assessment/Plan
-
POD 14.
1. WBC 22. Source unclear. Abdominal exam unimpressive. Ordering abdominal CT however to assess.
2. no BMs for a week but some flatus. Historically had constipation issues requiring enemas etc. After CT, presuming unremarkable, would give a Fleets.
3. will continue to follow.
Subjective Data
Procedure
10/13/2023-Exploratory laparotomy, right hemicolectomy, TAP block
Subjective Data
Date of Service: October 27, 2023
No BMs for a week. Occasional flatus.
No nausea.
Objective Data
-
Vital Signs
Temp Pulse Resp BP Pulse Ox
96.8 F L 77 18 138/56 99
10/26/23 23:15 10/27/23 08:33 10/27/23 07:10 10/27/23 08:33 10/27/23 07:10
Intake & Output
10/26/23 10/27/23 10/28/23
06:59 06:59 06:59
Intake Total 1310 / 1310 350 / 350
Output Total 475 / 475 600 / 600
Balance 835 / 835 -250 / -250
Intake:
Oral fluids 1200 / 1200 240 / 240
IV piggybacks 110 / 110 110 / 110
Output:
Urine, Voided 475 / 475
Straight cath output 600 / 600
Other:
Number of approximated SMALL 2
amounts of urine
Number of approximated MODERATE 1
amounts of urine
Number of approximated LARGE 3
amounts of urine
Lab Results
10/27/23 06:38
10/27/23 06:38
Physical Exam
-
General: No Acute Distress
Chest: Clear
Cardiovascular: Regular Rate & Rhythm
Abdomen: Soft, Non Distended and Non Tender
Incision: Clear, Dry, Intact and No Skin Erythema
[2023-10-27] MEDS: OMNIPAQUE 50 ML PO (10:53)
[2023-10-27 11:08] LABS: Glucose - Point of Care 338 mg/dl (70-99)
[2023-10-27 11:10] VITALS: BP 111/56
--- NOTE | 2023-10-27 11:34 | W.PN.ID1 ---
Date of Service
Date of Service: October 27, 2023
Today's Communication
Ordered repeat bcx x 1, UA/reflex Ucx.
Assessment / Plan
# Leukocytosis continues to trending up
- no infectious etiology identified to date.
- Afebrile
- No diarrhea. Last BM since 10/21
- 10/25 CXR mild edema
- Ordered repeat bcx x 1, UA/reflex Ucx.
# Recent sustained VT, acute on chronic heart failure, bioprosthetic MVR stenosis
- 10/26/23 s/p ICD placement
# Recent Ischemic colitis s/p right hemicolectomy 10/13/23.
# Ileus - airfluid level in left gerard-abdomen, last bowel movement 10/21
- 10/19/23 CT a/p: no intra-abdominal abscess.
- For repeat CT a/p today per colorectal
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
DM-II with Neuropathy
Chronic HFpEF
Chronic hypotension
COPD
Bioprosthetic MVR
CAD s/p CABG
Paroxysmal Atrial Fibrillation
PAD s/p RLE stent, s/p Bilateral Fem-Pop Bypass
Left CEA
Bladder Cancer s/p TURBT (07/2023)
Prostate Cancer s/p prostatectomy
Chronic Pain / Chronic Opioid Dependence
Left hallux amputation
Left shoulder surgery
Chief Complaint
-: Leukocytosis
Subjective / Review of Systems
Feels tired and sleepy.
No new sxs.
Vital Signs / Physical Exam
Vital Signs
Vital Signs
Temp Pulse Resp BP Pulse Ox
96.8 F L 77 18 138/56 99
10/26/23 23:15 10/27/23 08:33 10/27/23 07:10 10/27/23 08:33 10/27/23 07:10
Physical Exam
Constitutional: No Acute Distress
Cardiovascular: Regular Rate and Other (ICD site dressing dry)
Pulmonary: Clear (anteriorly)
Gastrointestinal: Soft, Non Tender and Decreased Bowel Sounds
Genito-Urinary: Negative Cramer or CVA Tenderness
Extremities: Negative Edema
Objective Data
Lab Data
Lab Results
10/27/23 06:38
10/27/23 06:38
APTT 91.7 Sec (23.4-35.0) H 10/21/23 05:46
Estimated Creat Clear 90 ml/min 10/27/23 06:38
Lactic Acid 1.7 mmol/L (0.7-2.0) 10/26/23 10:35
Total Bilirubin 0.6 mg/dl (0.2-1.3) 10/27/23 06:38
AST 34 U/L (17-59) 10/27/23 06:38
ALT 17 U/L (0-50) 10/27/23 06:38
Alkaline Phosphatase 126 U/L (38-126) 10/27/23 06:38
Most recent labs reviewed.
Micro Results:
10/27/23 09:30 Blood Culture - Pending
Blood/Venous
10/19/23 14:54 Blood Culture - Final
Blood/Venous No Growth - Final Report
10/12/23 17:17 Blood Culture - Final
Blood/Venous No Growth - Final Report
10/12/23 17:17 Blood Culture - Final
Blood/Venous No Growth - Final Report
10/26/23 CXR/AXR: Air-fluid levels in nondilated small bowel loops in the left hemiabdomen which may represent ileus.
10/19/23 CT a/p: No acute abnormality in the abdomen or pelvis following right hemicolectomy. Trace free fluid in the right paracolic gutter along with minimal residual inflammatory changes from recent surgery. No evidence of abscess or drainable
fluid collection. No evidence of anastomotic leak.
10/15/23 CXR: Mild interstitial pulmonary edema with small right pleural effusion.
10/12/23 CT a/p: Acute colitis involving the ascending colon. No extraluminal fluid collection or free air. Findings are likely infectious/inflammatory. The SMA is markedly atherosclerotic, however the distal branches do appear patent.
--- NOTE | 2023-10-27 11:35 | W.PN.HOSP.TC ---
Today's Communication/Plan
-
CT Scan with possible fleet enema afterwards
Appreciate nephrology, ID, surgery and cardiology
Assessment / Plan
Assessment / Plan
Physical Exam
General: No Apparent Distress
HEENT: Normocephalic
Respiratory: Clear to Auscultation
Cardiac: S1 and S2. Regular Rhythm
GI: Soft, Nontender and Nondistended. Positive bowel sounds.
Skin: Warm. Dry.
Neuro: Awake, Alert, Oriented and AO x 3
Psych: Calm

73yo M with PMHx of HLD, CAD s/p PCI and CABG, HFrEF with recovered EF, bioprosthetic MVR, PAD s/p R femoral endarterectomy and R SFA and stent, Hx of TIA, carotid stenosis s/p L CEA, paroxysmal afib, HTN, pulmonary HTN, Hx of prostate CA, former
smoker came with nausea and vomiting, found ascending colitis on CT with concern for ischemic colitis, s/p R colectomy on 10/13. Has persistent leukocytosis most likely 2/2 recent Sx, however started to resolve off Abx. Had BM and advanced to regular
diet on 10/22/23. Developed VT on 10/22/23 and has indication for ICD, which is planned for 10/26/23 by cardiology
Developed recurrent hyperkalemia with mild respiratory acidosis, MAGY might be playing the role. Also now postOP ileus
A/P:
#VT
around 40sec run on 10/22/23
Cardio follows: ICD placed on 10/26/23 -- needs inpatient/outpatient wound check by 10/31/23 to 11/02/23
Continue telemetry
Echo: Bioprosthetic MV disfunction noted on Echo -cardiology to follow, might need GLADIS/cath
Severely increased RV pressures - can be 2/2 MV dysfunction
CTA chest negative for PE
#Colitis, ischemic (as per pathology)
#Post OP ileus
#History of Constipation requiring enemas
s/p ex lap with hemicolectomy and primary anastomosis on 10/13 with persistent leukocytosis
Worsening leukocytosis however no new acute fluid collection or abscess on CT on 10/19/23
Bcx repeated, NTD
Procalcitonin low
ID consulted, appreciate evaluation and recommendations
Colorectal surgery following
Had normal post-operative bowel movement, then developed ileus. Continue laxatives and milk of magnesia.
As of 10/27/23, patient has not had bowel movement for about a week: CT imaging as per surgery with consideration of fleets enema after that
#Recurrent hyperkalemia
low potassium diet
CPK not elevated, no kidney failure, no medications that can cause elevation of potassium. Most likely diet-related, cannot exclude 2/2 nocturnal hypercarbia
Nephrology consulted, recommendations appreciated
#Acute on chronic HFrEF
Recovered EF as of july 2023
Cardio follows: medications restarted
Lasix PRN
#Anemia of chronic disease exacerbated by acute loss because of the surgery and LILIANA
IV iron
follow Hgb - stable
#Paroxysmal Afib
#Pulmonary HTN
#HLD
#CAD sp CABG and failed PCI
#bioprosthetic MVR
#PAD s/p stenting
#Orthostatic hypotension
COnt home meds
COnt anticoag - heparin and switched back to Eliquis on 10/21/23
#Recurrent hyperkalemia
low potassium diet
CPK not elevated, no kidney failure, no medications that can cause elevation of potassium. Most likely diet-related
#DM type 2 with neuropathy
Insulin SS< dm diet
Hold oral hypoglycemics
#Cholelithiasis without cholecystitis
Asymptomatic
#Intermittent hypercarbia, most likely MAGY
#Emphysematous changes on CT
#Mediastinal and perihilar lymphadenopathy
outpatient sleep study
pulmonology consult: WIll also need repeated chest CT in 3-6months
#Chronic opioid-induced constipation
Stool regimen originally held by Colorectal surgery, restarted on 10/25/23 gradually (agreed with Sx team)
DVT Prophylaxis: Eliquis
Full code
Anticipated Discharge: > 48 hours
Subjective/Interval History
-
Date of Service: October 27, 2023
Patient was seen and examined. He reported constipation and requested an enema if possible.
Objective Data
-
Labs:
Laboratory Results
10/27/23
06:38
WBC 22.6 H
Hgb 9.2 L
Hct 27.2 L
Plt Count 345
Sodium 136
Potassium 5.0
Chloride 98
Carbon Dioxide 26
BUN 27 H
Creatinine 0.8
Glucose 145 H
Calcium 8.8
Total Bilirubin 0.6
AST 34
ALT 17
Alkaline Phosphatase 126
Vital Signs:
Vital Signs
Temp Pulse Resp BP Pulse Ox
96.8 F L 77 18 138/56 99
10/26/23 23:15 10/27/23 08:33 10/27/23 07:10 10/27/23 08:33 10/27/23 07:10
I&O
10/26/23 10/27/23 10/28/23
06:59 06:59 06:59
Intake Total 1310 / 1310 350 / 350
Output Total 475 / 475 600 / 600
Balance 835 / 835 -250 / -250
[2023-10-27] MEDS: ROXICODONE 10 MG PO ×2 (11:48→20:07)
--- NOTE | 2023-10-27 11:53 | PTCARENOTE ---
Patient has repeatedly yelled at RN this am. Patient states, 'This is the last time you are taking my blood pressure, I want my medicine first. RN explained BP was low 83/64 and meds will not be administered until BP check is done. Patient yelled
again in regard to resuming his PO narcotics (Roxicodone & Mscontin). Physician made aware, PO narcs reordered. Roxicodone 10mg given to patient. Patient states, 'I should of had a dose of pain medicine this morning. I am behind now.'
--- NOTE | 2023-10-27 12:25 | W.PN.NEPH.PH ---
Today's Communication / Plan
-
prn LOkelma
cotn lasix
Assessment/Plan
-
IMP:
VT s/p ICD 10/25
Colitis, ischemic s/p ex lap with hemicolectomy and primary anastomosis on 10/12
Post OP ileus
Recurrent hyperkalemia
mild hyponatremia
Acute on chronic HFrEF
Anemia of chronic disease
Paroxysmal Afib
Pulmonary HTN
HLD
CAD sp CABG and failed PCI
bioprosthetic MVR
PAD s/p stenting
Orthostatic hypotension
DM type 2 with neuropathy
Cholelithiasis without cholecystitis
Intermittent hypercarbia, most likely MAGY
Emphysematous changes on CT
Mediastinal and perihilar lymphadenopathy
Chronic opioid-induced constipation
Plan:
A/w abd pain, colitis s/p exp lap and colectomy on 10/12
Known h/o recurrent hyperkalemia dating back to years
maintain low k diet-reviewed with 10/25
follow bladder scan s/p SC for 600cc, normal CK
He appropriately has high U k level for hyperkalemia
suspect need more tighter diet control
additionally decreased distal sodium(u na low) delivery with decreased effective art flow with low BPs and low flow state also contributing partially
good renal function
BPs are soft on BB and prn midodrine
would cont lasix and FR 48 ounces/day
Probably no need of Lokelma at this time
avoid constipation as it can exaggerate hyperkalemia
will s/o, call with ?s
-
-
Date of Service: October 27, 2023
CC / HPI / ROS
-
Chief Complaint:
hyperkalemia
History of Present Illness:
k is better at 5 s/p Lokelma 8/12
BP soft
on RA, no fever
for CT abd due to constipation
Review of Systems:
no cp or sob at rest
feels at basleine but tired
Labs
-
Labs:
WBC 22.6 10^3/uL (4.8-10.8) H 10/27/23 06:38
RBC 3.38 10^6/uL (4.70-6.10) L 10/27/23 06:38
Hgb 9.2 g/dL (13.0-18.0) L 10/27/23 06:38
Hct 27.2 % (39.0-52.0) L 10/27/23 06:38
Plt Count 345 10^3/uL (130-400) 10/27/23 06:38
Sodium 136 mmol/L (135-145) 10/27/23 06:38
Potassium 5.0 mmol/L (3.5-5.1) 10/27/23 06:38
Chloride 98 mmol/L (98-107) 10/27/23 06:38
Carbon Dioxide 26 mmol/L (22-30) 10/27/23 06:38
BUN 27 mg/dl (9-20) H 10/27/23 06:38
Creatinine 0.8 mg/dL (0.7-1.3) 10/27/23 06:38
eGFR > 60.00 10/27/23 06:38
Glucose 145 mg/dl (70-99) H 10/27/23 06:38
Calcium 8.8 mg/dl (8.4-10.2) 10/27/23 06:38
Phosphorus 4.6 mg/dl (2.5-4.5) H 10/27/23 06:38
Hyl-G-Cmjskaxxkww Pept Cancelled 10/23/23 12:53
Albumin 3.6 g/dl (3.5-5.0) 10/27/23 06:38
Physical Exam
-
Vital Signs:
Vital Signs
Temp Pulse Resp BP Pulse Ox
97.7 F 66 18 111/56 95
10/27/23 11:10 10/27/23 11:10 10/27/23 11:10 10/27/23 11:10 10/27/23 11:10
Cardiovascular:: Regular rate and rhythm
Respiratory:: Bilateral: CTA (decreased)
Lung Excursion:: Normal
Abdomen:: Nontender and Soft
Extremity Edema:: None: Bilateral:
Cramer Catheter: No
--- NOTE | 2023-10-27 13:16 | CM ---
ICD implant 10/26/23, WBC 22.6 ?etiology, CT abdomen today, constipated. Discharge Plan of Care remains home with [facility], PT/OT services.
[2023-10-27] MEDS: NOVOLOG FLEXPEN-LOW RESISTANCE 4 UNITS SC (14:03)
[2023-10-27] MEDS: FERRLECIT 110 MG IV (14:05)
[2023-10-27] MEDS: MS CONTIN (EXTENDED RELEASE) 15 MG PO ×2 (14:06→22:16)
--- NOTE | 2023-10-27 14:28 | W.PN.CARDCBS ---
Addendum entered and electronically signed by Chris Garcia DO 10/27/23 16:01:
I saw and examined the patient.
The Filler Mixer's note was reviewed and I agree with the note.
Comment:
Plan:
pt is s/p successful ICD
No recurrent VT
Leukocytosis work up as per surgery and primary service
IV lasix this afternoon with increased pleural effusions
Likely transition back to PO lasix tomorrow
Original Note:
Today's Communication / Plan
-
40mg IV lasix this afternoon given pleural effusions noted on imaging
s/p ICD
post op care
Impression / Plan
-
PCP: Dr. Sivakumar Patel
Primary Drawing Box Tender: Dr. Garcia
Impression:
-Presentation with abd pain, N/V
-Acute colitis s/p R colectomy 10/13
-Post op ileus, improving
-Acute on chronic HFpEF
-Sustained monomorphic VT evening of 10/22/23 s/p Medtronic DC ICD 10/26/23
-Hx Recovered CM: CM EF 15-20% by echo Jan 2020 with EF 30% by echo 04/20/19 with h/o recovered CM EF 65% by echo 05/2022, EF 53% by echo 07/20/23
-CAD
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
CABG with occluded QUIÑONES to LAD by cath 2019, but patent SVG seq to Diag-OM-PDA 02/2014
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
-PAD s/p right femoral endarterectomy and right iliac stenting 02/2016
-PAD s/p right SFA and popliteal TECHNOLOGY APPLICATIONS CONSULTANT and stent 10/24/19
-possible TIA with noted L carotid stenosis s/p L CEA 03/03/23
-Paroxysmal Afib
-Chronic Eliquis OAC
-HTN
-Moderate to severe chronic obstructive pulmonary disease
-DM2 with Diabetic neuropathy
-Pulmonary HTN
-Hx prostate cancer s/p surgery 2007
-Medical marijuana use
-former smoker
CATH 2019: Left main and three-vessel [place] coronary total occlusions, patent sequential SVG to diagonal/OM/PDA with collaterals to LAD, and occluded QUIÑONES to LAD, anterolateral wall hypokinesis with mild LV dysfunction
Echo 08/2022: Mild LVH, mid to apical anterior and anteroseptal hypokinesis, EF 50%, bioprosthetic mitral valve with peak/mean gradients 10/6 mmHg, GASTON 1.5 cm�, trace MR, dilated left atrium, aortic sclerosis, normal right heart cardiac
Echo 07/20/2023: EF 53%, mild concentric LVH. Bovine mitral valve replacement well-seated peak/mean gradient 20/10 mmHg with MV area 1.4 cm�, moderate MS with mild to moderate MR. Mild TR with PAP 35 mmHg
ECHO 10/23/23: EF 68%, flattened septum in systole consistent with RV pressure overload, severely dilated left atrium, bovine mitral valve replacement with peak/mean gradients of 43/22 mmHg, concern for at least moderate bioprosthetic MS, moderate MR,
moderate TR, PAP 78 mmHg
Plan:
-Patient presented with abd pain, N/V. found by CTAP to have acute colitis s/p R colectomy 10/13/23. Post op ileus 10/16, resolved. continue post op care. white count trending up. CTAP without clear etiology.
-Has been transitioned back to OP eliquis and lasix
-Home Toprol uptitrated to allow LV filling in the setting of prosthetic mitral valve stenosis
-Evening of 10/21, had episode of ~43 seconds of sustained monomorphic VT, fortunately broke with coughing. no further VT since 10/21 episode. s/p DC Medtronic ICD 10/25
-in SR upon review of tele overnight.
-CXR without 'significant PTX' and with evidence of interstitial edema progressed from prior CXR. also with small pleural effusions B/L by CTAP. will give IV lasix 40mg this afternoon then place back on po lasix 40mg BID 10/27.
-Given significant CAD and anemia recommend transfusion goal of hgb >8.0
-Would repeat TTE as an outpatient and then potentially GLADIS to further evaluate mitral valve once recovered from colectomy and ICD placement - would consider referral for TMVR
Progress Note - Drawing Box Tender
Subjective
Date of Service: October 27, 2023
he was agitated this morning related to pain.
Objective
Labs:
10/27/23 06:38
10/27/23 06:38
Labs
Hgb 9.2 g/dL (13.0-18.0) L 10/27/23 06:38
Hct 27.2 % (39.0-52.0) L 10/27/23 06:38
Plt Count 345 10^3/uL (130-400) 10/27/23 06:38
APTT 91.7 Sec (23.4-35.0) H 10/21/23 05:46
Sodium 136 mmol/L (135-145) 10/27/23 06:38
Potassium 5.0 mmol/L (3.5-5.1) 10/27/23 06:38
BUN 27 mg/dl (9-20) H 10/27/23 06:38
Creatinine 0.8 mg/dL (0.7-1.3) 10/27/23 06:38
Glucose 145 mg/dl (70-99) H 10/27/23 06:38
Vital Signs and I&O:
Vital Signs
Temp Pulse Resp BP Pulse Ox
97.7 F 66 18 111/56 95
10/27/23 11:10 10/27/23 11:10 10/27/23 11:10 10/27/23 11:10 10/27/23 11:10
Vital Signs
Temp Pulse Resp BP Pulse Ox
97.7 F 66 18 111/56 95
10/27/23 11:10 10/27/23 11:10 10/27/23 11:10 10/27/23 11:10 10/27/23 11:10
Intake & Output
10/25/23 10/26/23 10/27/23 10/28/23
07:59 07:59 07:59 07:59
Intake Total 1200 / 1200 1310 / 1310 350 / 350
Output Total 475 / 475 600 / 600
Balance 1200 / 1200 835 / 835 -250 / -250
[2023-10-27] MEDS: FLEET PHOSPHATE ENEMA-ADULT 135 ML RECTAL (14:55)
--- NOTE | 2023-10-27 15:04 | PTCARENOTE ---
Patient ambulated to bathroom with assist x1 and walker. Enema given with moderate results. Left arm immobilizer removed per order. Patient and spouse instructed on left arm restrictions.
[2023-10-27 15:10] VITALS: BP 121/53
[2023-10-27 15:46] LABS: Urine Albumin Negative (Neg - Trace); Urine Bilirubin Negative (Negative); Urine Character Clear (Clear); Urine Color Yellow; Urine Glucose Negative (Negative); Urine Ketone Negative (Negative); Urine Leukocyte 1+ (Negative); Urine Nitrite Negative (Negative); Urine Occult Blood Negative (Negative); Urine Specific Gravity 1.015 (<1.030); Urine Urobilinogen Negative (Neg - 1+)
[2023-10-27 16:03] LABS: Urine Calcium Oxalate Crystals Present; Urine Hyaline Cast >15 /LPF (0-2)
[2023-10-27 16:07] LABS: Urine Bacteria Moderate (Negative); Urine Red Blood Cell 0-2 /HPF (0-2)
[2023-10-27] MEDS: LIPITOR 80 MG PO (16:29)
[2023-10-27] MEDS: LASIX 40 MG IV (16:31)
[2023-10-27 17:03] LABS: Glucose - Point of Care 246 mg/dl (70-99)
[2023-10-27 19:18] VITALS: BP 103/44
[2023-10-27 22:04] LABS: Glucose - Point of Care 192 mg/dl (70-99)
[2023-10-27] MEDS: DUPHALAC/CHRONULAC 20 GRAMS PO (22:16)
[2023-10-27] MEDS: AMBIEN 5 MG PO (22:31)
[2023-10-27 23:52] VITALS: BP 105/47
[2023-10-28] VITALS (9 sets, daily range): BP systolic 103–130; BP diastolic 39–63; BMI 22.3
[2023-10-28 07:01] LABS: Hematocrit 22.4 % (39.0-52.0); Hemoglobin 7.5 g/dL (13.0-18.0); Mean Corp Hgb Conc. 33.5 g/dL (33.0-37.0); Mean Corpuscular Volume 83.6 fL (80.0-94.0); Mean Platelet Volume 10.2 fL (7.4-10.4); Platelet Count 263 10^3/uL (130-400); Red Blood Cell Count 2.68 10^6/uL (4.70-6.10); Red Cell Dist. Width 16.2 % (11.5-14.5); White Blood Cell Count 18.2 10^3/uL (4.8-10.8)
[2023-10-28 07:32] LABS: Glucose - Point of Care 154 mg/dl (70-99)
--- NOTE | 2023-10-28 08:26 | W.PN.CRS1 ---
Today's Communication / Plan
-
now having bowel movements
will sign off
Assessment/Plan
-
POD 15
1. WBC 18.[address] A/P yesterday with no acute findings. ID following.
2. Continue lactulose.
3. Will sign off, please contact if further issues arise.
Subjective Data
Procedure
10/13/2023-Exploratory laparotomy, right hemicolectomy, TAP block
Subjective Data
Date of Service: October 28, 2023
Patient states he had bowel movements all night after receiving the enema. He has no blood. He denies nausea or vomiting. He denies abdominal pain.
Objective Data
-
Vital Signs
Temp Pulse Resp BP Pulse Ox
98.0 F 74 18 123/49 93
10/28/23 03:43 10/28/23 03:43 10/28/23 03:43 10/28/23 03:43 10/28/23 03:43
Intake & Output
10/27/23 10/28/23 10/29/23
06:59 06:59 06:59
Intake Total 350 / 350 1610 / 1610
Output Total 600 / 600 150 / 150
Balance -250 / -250 1460 / 1460
Intake:
Oral fluids 240 / 240 1500 / 1500
IV piggybacks 110 / 110 110 / 110
Output:
Urine, Voided 150 / 150
Straight cath output 600 / 600
Other:
Number of approximated SMALL 1
amounts of urine
Number of approximated MODERATE 1 4
amounts of urine
Number of unmeasured liquid
stools
Rectum 4
Lab Results
10/28/23 06:10
10/27/23 06:38
Physical Exam
-
General: No Acute Distress and AOx3
Abdomen: Soft, Non Distended and Non Tender
Skin: Warm and Dry
Incision: Clear, Dry, Intact (janet in place)
[2023-10-28] MEDS: NEURONTIN 600 MG PO ×3 (08:31→22:25)
[2023-10-28] MEDS: COLACE 100 MG PO ×2 (08:31→20:48)
[2023-10-28] MEDS: MS CONTIN (EXTENDED RELEASE) 15 MG PO ×3 (08:31→22:25)
[2023-10-28] MEDS: NOVOLOG FLEXPEN-LOW RESISTANCE 1 UNITS SC ×2 (08:31→17:00)
[2023-10-28] MEDS: MIRALAX 17 GRAMS PO (08:32)
[2023-10-28] MEDS: TOPROL XL 37.5 MG PO ×2 (08:32→20:48)
[2023-10-28] MEDS: ROXICODONE 10 MG PO (09:49)
--- NOTE | 2023-10-28 10:45 | W.PN.CARDCBS ---
Addendum entered and electronically signed by Mario Dao MD 10/28/23 11:24:
I saw and examined the patient.
The Band Saw Runner's note was reviewed and I agree with the note.
Comment:
GEN: No distress, awake, Ox3
HEENT: supple, anicteric, mmm
LUNGS: scatt rhonchi
CV: Reg, S1/S2, 1/6 syst LSB, no gallop
ABD: soft, BS+, NT/ND
EXT: No edema
NEURO: Gross non-focal
SKIN: ICD site stable
Plan:
ICD site looks stable. Pressure dressing removed. Hemoglobin down to 7.5. Will transfuse 1 unit of packed red blood cells with 20 mg of IV Lasix.
No further ventricular tachycardia.
Likely stable for discharge from cardiology standpoint in 24 hours
Original Note:
Today's Communication / Plan
-
consider transfusing
hopefully resume eliquis in next 24 hours
no further VT s/p ICD
follow volume status
Impression / Plan
-
PCP: Dr. Sivakumar Patel
Primary Manufacturing Assembler: Dr. Garcia
Impression:
-Presentation with abd pain, N/V
-Acute colitis s/p R colectomy 10/13
-Post op ileus, improving
-Acute on chronic HFpEF
-Sustained monomorphic VT evening of 10/22/23 s/p Medtronic DC ICD 10/26/23
-Hx Recovered CM: CM EF 15-20% by echo Jan 2020 with EF 30% by echo 04/20/19 with h/o recovered CM EF 65% by echo 05/2022, EF 53% by echo 07/20/23
-CAD
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
CABG with occluded QUIÑONES to LAD by cath 2019, but patent SVG seq to Diag-OM-PDA 02/2014
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
-PAD s/p right femoral endarterectomy and right iliac stenting 02/2016
-PAD s/p right SFA and popliteal METAL TURNER and stent 10/24/19
-possible TIA with noted L carotid stenosis s/p L CEA 03/03/23
-Paroxysmal Afib
-Chronic Eliquis OAC
-HTN
-Moderate to severe chronic obstructive pulmonary disease
-DM2 with Diabetic neuropathy
-Pulmonary HTN
-Hx prostate cancer s/p surgery 2007
-Medical marijuana use
-former smoker
CATH 2019: Left main and three-vessel [place] coronary total occlusions, patent sequential SVG to diagonal/OM/PDA with collaterals to LAD, and occluded QUIÑONES to LAD, anterolateral wall hypokinesis with mild LV dysfunction
Echo 08/2022: Mild LVH, mid to apical anterior and anteroseptal hypokinesis, EF 50%, bioprosthetic mitral valve with peak/mean gradients 10/6 mmHg, GASTON 1.5 cm�, trace MR, dilated left atrium, aortic sclerosis, normal right heart cardiac
Echo 07/20/2023: EF 53%, mild concentric LVH. Bovine mitral valve replacement well-seated peak/mean gradient 20/10 mmHg with MV area 1.4 cm�, moderate MS with mild to moderate MR. Mild TR with PAP 35 mmHg
ECHO 10/23/23: EF 68%, flattened septum in systole consistent with RV pressure overload, severely dilated left atrium, bovine mitral valve replacement with peak/mean gradients of 43/22 mmHg, concern for at least moderate bioprosthetic MS, moderate MR,
moderate TR, PAP 78 mmHg
Plan:
-Patient presented with abd pain, N/V. found by CTAP to have acute colitis s/p R colectomy 10/13/23. Post op ileus 10/16, resolved. continue post op care. white count was up to 22K 10/26, now trending back down. CTAP without clear etiology.
-eliquis was placed on hold 10/24 in preparation for ICD. hgb down to 7.5. Given significant CAD and anemia recommend transfusion goal of hgb >8.0
-Home Toprol uptitrated to allow LV filling in the setting of prosthetic mitral valve stenosis
-Evening of 10/21, had episode of ~43 seconds of sustained monomorphic VT, fortunately broke with coughing. no further VT since 10/21 episode. s/p DC Medtronic ICD 10/25. ICD site with mild dried blood on dressing, no edema
-in SR upon review of tele overnight without further VT
-follow volume status. imaging with B/L pleural effusions 10/25 so given IV lasix 10/26PM dose. back on po lasix 40mg BID.
-Would repeat TTE as an outpatient and then potentially GLADIS to further evaluate mitral valve once recovered from colectomy and ICD placement - would consider referral for TMVR
Progress Note - Manufacturing Assembler
Subjective
Date of Service: October 28, 2023
reports pain well controlled. did not sleep well. breathing ok
Objective
Labs:
10/28/23 06:10
10/27/23 06:38
Labs
Hgb 7.5 g/dL (13.0-18.0) L 10/28/23 06:10
Hct 22.4 % (39.0-52.0) L 10/28/23 06:10
Plt Count 263 10^3/uL (130-400) D 10/28/23 06:10
APTT 91.7 Sec (23.4-35.0) H 10/21/23 05:46
Sodium 136 mmol/L (135-145) 10/27/23 06:38
Potassium 5.0 mmol/L (3.5-5.1) 10/27/23 06:38
BUN 27 mg/dl (9-20) H 10/27/23 06:38
Creatinine 0.8 mg/dL (0.7-1.3) 10/27/23 06:38
Glucose 145 mg/dl (70-99) H 10/27/23 06:38
Vital Signs and I&O:
Vital Signs
Temp Pulse Resp BP Pulse Ox
97.4 F 62 12 112/52 96
10/28/23 07:31 10/28/23 08:32 10/28/23 07:31 10/28/23 08:32 10/28/23 07:31
Vital Signs
Temp Pulse Resp BP Pulse Ox
97.4 F 62 12 112/52 96
10/28/23 07:31 10/28/23 08:32 10/28/23 07:31 10/28/23 08:32 10/28/23 07:31
Intake & Output
10/26/23 10/27/23 10/28/23 10/29/23
07:59 07:59 07:59 07:59
Intake Total 1310 / 1310 350 / 350 1610 / 1610
Output Total 475 / 475 600 / 600 150 / 150
Balance 835 / 835 -250 / -250 1460 / 1460
Physical Exam
Physical Exam
GEN: No distress, awake, alert, oriented x3. pale
HEENT: supple, anicteric, mmm, eomi
LUNGS: Few crackles B/L bases, no wheezes
CV: Reg, S1/S2, 2/6 murmur
EXT: No cyanosis, clubbing, edema
NEURO: Gross non-focal
SKIN: Warm, pink, dry. No rash. L chest dressing with mild amount of dried blood
--- NOTE | 2023-10-28 11:19 | W.PN.HOSP.TC ---
Today's Communication/Plan
-
Hgb 7.5 on October 28, 2023 -- less than 8 -- after discussion with cardiology, they recommended 1 unit of PRBC to be transfused SLOWLY and Lasix IV 20 mg to be given immediately after the blood transfusion
Maintain Hgb>8
Appreciate ID, colorectal surgery and cardiology
Assessment / Plan
Assessment / Plan
Physical Exam
General: No Apparent Distress
HEENT: Normocephalic
Respiratory: Clear to Auscultation
Cardiac: S1 and S2. Regular Rhythm
GI: Soft, Nontender and Nondistended. Positive bowel sounds.
Skin: Warm. Dry.
Neuro: Awake, Alert, Oriented and AO x 3
Psych: Calm

73yo M with PMHx of HLD, CAD s/p PCI and CABG, HFrEF with recovered EF, bioprosthetic MVR, PAD s/p R femoral endarterectomy and R SFA and stent, Hx of TIA, carotid stenosis s/p L CEA, paroxysmal afib, HTN, pulmonary HTN, Hx of prostate CA, former
smoker came with nausea and vomiting, found ascending colitis on CT with concern for ischemic colitis, s/p R colectomy on 10/13. Has persistent leukocytosis most likely 2/2 recent Sx, however started to resolve off Abx. Had BM and advanced to regular
diet on 10/22/23. Developed VT on 10/22/23 and has indication for ICD, which is planned for 10/26/23 by cardiology
Developed recurrent hyperkalemia with mild respiratory acidosis, MAGY might be playing the role. Also now postOP ileus
#Ventricular Tachycardia
around 40sec run on 10/22/23
Cardio follows: ICD placed on 10/26/23 -- needs inpatient/outpatient wound check by 10/31/23 to 11/02/23
Continue telemetry
Echo: Bioprosthetic MV disfunction noted on Echo -cardiology to follow, might need GLADIS/cath
Severely increased RV pressures - can be 2/2 MV dysfunction
CTA chest negative for PE
#Colitis, ischemic (as per pathology)
#Post OP ileus
#History of Constipation requiring enemas
#Leukocytosis
s/p ex lap with hemicolectomy and primary anastomosis on 10/13 with persistent leukocytosis
Worsening leukocytosis however no new acute fluid collection or abscess on CT on 10/19/23
Bcx repeated, NTD
Procalcitonin low
ID consulted, appreciate evaluation and recommendations
Colorectal surgery following
Had normal post-operative bowel movement, then developed ileus. Continue laxatives and milk of magnesia.
Overnight 10/26 to 10/27 patient had significant amount of bowel movement after not having a bowel movement for about a week
#Recurrent hyperkalemia - RESOLVED
Low potassium diet
CPK not elevated, no kidney failure, no medications that can cause elevation of potassium. Most likely diet-related, cannot exclude 2/2 nocturnal hypercarbia
Nephrology consulted, recommendations appreciated
#Acute on chronic HFrEF
Recovered EF as of july 2023
Cardio follows: medications restarted
Lasix PRN
#Anemia of chronic disease exacerbated by acute loss because of the surgery and LILIANA
IV iron
follow Hgb
Hgb 7.5 on October 28, 2023 -- less than 8 -- after discussion with cardiology, they recommended 1 unit of PRBC to be transfused SLOWLY and Lasix IV 20 mg to be given immediately after the blood transfusion, to keep Hgb>8
#Paroxysmal Afib
#Pulmonary HTN
#HLD
#CAD sp CABG and failed PCI
#bioprosthetic MVR
#PAD s/p stenting
#Orthostatic hypotension
COnt home meds
COnt anticoag - heparin and switched back to Eliquis on 10/21/23
#Increased small to moderate right pleural effusion and new small left pleural effusion on CT Imaging done on 10/27/23
-Consider IR and pulm consultations
#Recurrent hyperkalemia
low potassium diet
CPK not elevated, no kidney failure, no medications that can cause elevation of potassium. Most likely diet-related
#DM type 2 with neuropathy
Insulin SS< dm diet
Hold oral hypoglycemics
#Cholelithiasis without cholecystitis
Asymptomatic
#Intermittent hypercarbia, most likely MAGY
#Emphysematous changes on CT
#Mediastinal and perihilar lymphadenopathy
outpatient sleep study
pulmonology consult: WIll also need repeated chest CT in 3-6months
#Chronic opioid-induced constipation
Stool regimen originally held by Colorectal surgery, restarted on 10/25/23 gradually (agreed with Sx team)
DVT Prophylaxis: Eliquis
Full code
Anticipated Discharge: 24 - 48 hours
Subjective/Interval History
-
Date of Service: October 28, 2023
Patient was seen and examined. He denied any new symptoms or complaints.
Objective Data
-
Labs:
Laboratory Results
10/28/23
06:10
WBC 18.2 H
Hgb 7.5 L
Hct 22.4 L
Plt Count 263 D
Vital Signs:
Vital Signs
Temp Pulse Resp BP Pulse Ox
97.4 F 62 12 112/52 96
10/28/23 07:31 10/28/23 08:32 10/28/23 07:31 10/28/23 08:32 10/28/23 07:31
I&O
10/27/23 10/28/23 10/29/23
06:59 06:59 06:59
Intake Total 350 / 350 1610 / 1610
Output Total 600 / 600 150 / 150
Balance -250 / -250 1460 / 1460
--- NOTE | 2023-10-28 11:39 | W.PN.ID1 ---
Date of Service
Date of Service: October 28, 2023
Today's Communication
Continue to observe off abx.
Assessment / Plan
# Leukocytosis trending down.
- no infectious etiology identified to date.
- Afebrile
- 10/25 CXR mild edema
- repeat bcx neg to date.
- repeat UA 1+LE, 11-15 wbc, Ucx pending. Pt without urinary sxs.
- Hold off on abx at this time.
- Follow WBC.
# Recent sustained VT, acute on chronic heart failure, bioprosthetic MVR stenosis
- 10/26/23 s/p ICD placement
# Recent Ischemic colitis s/p right hemicolectomy 10/13/23.
# s/p Ileus - airfluid level in left gerard-abdomen,
- 10/19/23 CT a/p: no intra-abdominal abscess.
- 10/26repeat CT a/p: no fluid collection
- Constipation resolving after enema and on lactulose. Stool loose to formed.
# Conditions HIGH RISK OB
DM-II with Neuropathy
Chronic HFpEF
Chronic hypotension
COPD
Bioprosthetic MVR
CAD s/p CABG
Paroxysmal Atrial Fibrillation
PAD s/p RLE stent, s/p Bilateral Fem-Pop Bypass
Left CEA
Bladder Cancer s/p TURBT (07/2023)
Prostate Cancer s/p prostatectomy
Chronic Pain / Chronic Opioid Dependence
Left hallux amputation
Left shoulder surgery
Chief Complaint
-: Leukocytosis
Subjective / Review of Systems
Now having several BM's after enema.
No urinary sxs.
Vital Signs / Physical Exam
Vital Signs
Vital Signs
Temp Pulse Resp BP Pulse Ox
97.4 F 62 12 112/52 96
10/28/23 07:31 10/28/23 08:32 10/28/23 07:31 10/28/23 08:32 10/28/23 07:31
Physical Exam
Constitutional: Comfortable
Pulmonary: Clear (anteriorly)
Gastrointestinal: Soft, Non Tender and Non Distended
Extremities: Negative Edema
Objective Data
Lab Data
Lab Results
10/28/23 06:10
10/27/23 06:38
APTT 91.7 Sec (23.4-35.0) H 10/21/23 05:46
Estimated Creat Clear 90 ml/min 10/27/23 06:38
Lactic Acid 1.7 mmol/L (0.7-2.0) 10/26/23 10:35
Total Bilirubin 0.6 mg/dl (0.2-1.3) 10/27/23 06:38
AST 34 U/L (17-59) 10/27/23 06:38
ALT 17 U/L (0-50) 10/27/23 06:38
Alkaline Phosphatase 126 U/L (38-126) 10/27/23 06:38
Most recent labs reviewed.
Micro Results:
10/27/23 09:30 Blood Culture - Preliminary
Blood/Venous No Growth in 24 hours- Final report to follow
10/27/23 15:29 Urine Culture - Pending
Urine
10/19/23 14:54 Blood Culture - Final
Blood/Venous No Growth - Final Report
10/12/23 17:17 Blood Culture - Final
Blood/Venous No Growth - Final Report
10/12/23 17:17 Blood Culture - Final
Blood/Venous No Growth - Final Report
10/26/23 CXR/AXR: Air-fluid levels in nondilated small bowel loops in the left hemiabdomen which may represent ileus.
10/19/23 CT a/p: No acute abnormality in the abdomen or pelvis following right hemicolectomy. Trace free fluid in the right paracolic gutter along with minimal residual inflammatory changes from recent surgery. No evidence of abscess or drainable
fluid collection. No evidence of anastomotic leak.
10/15/23 CXR: Mild interstitial pulmonary edema with small right pleural effusion.
10/12/23 CT a/p: Acute colitis involving the ascending colon. No extraluminal fluid collection or free air. Findings are likely infectious/inflammatory. The SMA is markedly atherosclerotic, however the distal branches do appear patent.
[2023-10-28 11:55] LABS: Glucose - Point of Care 222 mg/dl (70-99)
[2023-10-28] MEDS: DUPHALAC/CHRONULAC 20 GRAMS PO (12:20)
[2023-10-28] MEDS: NOVOLOG FLEXPEN-LOW RESISTANCE 2 UNITS SC (12:22)
--- NOTE | 2023-10-28 12:55 | PTCARENOTE ---
Butler loud noise in patient's room, entered patient's bathroom, patient was sitting on bowl and had new small skin tear on right arm stating that he hit it on bathroom wall hand bar; assisted patient with rolling walker to bedside, cleansed skin
tear with saline and applied small silicone border dressing.
[2023-10-28] MEDS: MAALOX 30 ML PO (15:00)
[2023-10-28 16:55] LABS: Glucose - Point of Care 181 mg/dl (70-99)
[2023-10-28] MEDS: LIPITOR 80 MG PO (16:59)
--- NOTE | 2023-10-28 17:11 | CM ---
CM follow up for discharge planning. Herrera will be discharged to home with resumption of [facility] services when medically ready. No additional needs identified at this time.
CM will continue to follow.
[2023-10-28] MEDS: LASIX 20 MG IV (18:05)
--- NOTE | 2023-10-28 18:05 | PTCARENOTE ---
1 unit PRBC administered for Hgb 7.5 followed by Lasix IV 20 mg given right after blood transfusion; VSS; patient handled without incident.
[2023-10-28] MEDS: FERRLECIT 110 MG IV (18:29)
[2023-10-28 21:11] LABS: Glucose - Point of Care 188 mg/dl (70-99)
[2023-10-28] MEDS: AMBIEN 5 MG PO (22:33)
[2023-10-29 03:13] VITALS: BP 118/56
[2023-10-29 05:54] VITALS: BMI 21.7
[2023-10-29 07:46] LABS: Glucose - Point of Care 158 mg/dl (70-99)
[2023-10-29] MEDS: COLACE 100 MG PO (08:14)
[2023-10-29] MEDS: NEURONTIN 600 MG PO ×2 (08:14→15:23)
[2023-10-29] MEDS: TOPROL XL 37.5 MG PO (08:14)
[2023-10-29] MEDS: DUPHALAC/CHRONULAC PO (08:15)
[2023-10-29] MEDS: MS CONTIN (EXTENDED RELEASE) 15 MG PO ×2 (08:15→15:23)
[2023-10-29] MEDS: MIRALAX PO (08:16)
[2023-10-29 08:29] VITALS: BP 107/59
[2023-10-29 08:32] LABS: Blood Urea Nitrogen 17 mg/dl (9-20); Calcium 8.1 mg/dl (8.4-10.2); Carbon Dioxide 31 mmol/L (22-30); Chloride 98 mmol/L (98-107); Estimated Creatinine Clearance 90 ml/min; Glucose 114 mg/dl (70-99); Potassium 4.5 mmol/L (3.5-5.1); Sodium 135 mmol/L (135-145); eGFR > 60.00
[2023-10-29] MEDS: NOVOLOG FLEXPEN-LOW RESISTANCE 1 UNITS SC (09:37)
--- NOTE | 2023-10-29 10:56 | W.PN.CARDCBS ---
Addendum entered and electronically signed by Mario Dao MD 10/29/23 12:27:
I saw and examined the patient.
The Plant Taxonomist's note was reviewed and I agree with the note.
Comment:
GEN: No distress, awake, Ox3
HEENT: supple, anicteric, mmm
LUNGS: CTA, no wheezes/rales
CV: Reg, S1/S2, 1/6 syst LSB, no gallop
ABD: soft, BS+, NT/ND
EXT: No edema
NEURO: Gross non-focal
SKIN: No rash
Plan:
Hg stable at 9.0
Cont Eliquis 5mg po bid
Cont lasix 40mg po bid
Cont Toprol
Original Note:
Today's Communication / Plan
-
resume eliquis tonight
hgb improved
CBC in 1 week
po lasix 40mg BID
OP cardiac follow up arranged
Impression / Plan
-
PCP: Dr. Sivakumar Patel
Primary Chemical Cell Changer: Dr. Garcia
Impression:
-Presentation with abd pain, N/V
-Acute colitis s/p R colectomy 10/13
-Post op ileus, improving
-Acute on chronic HFpEF
-Sustained monomorphic VT evening of 10/22/23 s/p Medtronic DC ICD 10/26/23
-Hx Recovered CM: CM EF 15-20% by echo Jan 2020 with EF 30% by echo 04/20/19 with h/o recovered CM EF 65% by echo 05/2022, EF 53% by echo 07/20/23
-CAD
s/p unsuccessful attempted PCI of LAD DIETARY CLERK 03/07/16
CABG with occluded QUIÑONES to LAD by cath 2019, but patent SVG seq to Diag-OM-PDA 02/2014
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
-PAD s/p right femoral endarterectomy and right iliac stenting 02/2016
-PAD s/p right SFA and popliteal GLASS PRESSER and stent 10/24/19
-possible TIA with noted L carotid stenosis s/p L CEA 03/03/23
-Paroxysmal Afib
-Chronic Eliquis OAC
-HTN
-Moderate to severe chronic obstructive pulmonary disease
-DM2 with Diabetic neuropathy
-Pulmonary HTN
-Hx prostate cancer s/p surgery 2007
-Medical marijuana use
-former smoker
CATH 2019: Left main and three-vessel knik coronary total occlusions, patent sequential SVG to diagonal/OM/PDA with collaterals to LAD, and occluded QUIÑONES to LAD, anterolateral wall hypokinesis with mild LV dysfunction
Echo 08/2022: Mild LVH, mid to apical anterior and anteroseptal hypokinesis, EF 50%, bioprosthetic mitral valve with peak/mean gradients 10/6 mmHg, GASTON 1.5 cm�, trace MR, dilated left atrium, aortic sclerosis, normal right heart cardiac
Echo 07/20/2023: EF 53%, mild concentric LVH. Bovine mitral valve replacement well-seated peak/mean gradient 20/10 mmHg with MV area 1.4 cm�, moderate MS with mild to moderate MR. Mild TR with PAP 35 mmHg
ECHO 10/23/23: EF 68%, flattened septum in systole consistent with RV pressure overload, severely dilated left atrium, bovine mitral valve replacement with peak/mean gradients of 43/22 mmHg, concern for at least moderate bioprosthetic MS, moderate MR,
moderate TR, PAP 78 mmHg
Plan:
-Patient presented with abd pain, N/V. found by CTAP to have acute colitis s/p R colectomy 10/13/23. Post op ileus 10/16, resolved. continue post op care. white count was up to 22K 10/26, now trending back down. CTAP without clear etiology.
-hgb up to 9 today s/p 1 U PRBCs 10/27. resume eliquis tonight. will need CBC in 1 week upon DC
-Evening of 10/21, had episode of ~43 seconds of sustained monomorphic VT, fortunately broke with coughing. no further VT since 10/21 episode. s/p DC Medtronic ICD 10/25.
-continue toprol. in SR upon review of tele overnight. no further VT noted
-volume status appears compensated, continue po lasix 40mg BID
-Would repeat TTE as an outpatient and then potentially GLADIS to further evaluate mitral valve once recovered from colectomy and ICD placement - would consider referral for TMVR
-OP cardiac follow up arranged
-ok for DC from cardiac standpoint
-d/w nursing
-will plan to sign off
Progress Note - Chemical Cell Changer
Subjective
Date of Service: October 29, 2023
Resting comfortably. No issues overnight
Objective
Labs:
10/29/23 06:48
Labs
Hgb 7.5 g/dL (13.0-18.0) L 10/28/23 06:10
Hct 22.4 % (39.0-52.0) L 10/28/23 06:10
Plt Count 263 10^3/uL (130-400) D 10/28/23 06:10
APTT 91.7 Sec (23.4-35.0) H 10/21/23 05:46
Sodium 135 mmol/L (135-145) 10/29/23 06:48
Potassium 4.5 mmol/L (3.5-5.1) 10/29/23 06:48
BUN 17 mg/dl (9-20) 10/29/23 06:48
Creatinine 0.8 mg/dL (0.7-1.3) 10/29/23 06:48
Glucose 114 mg/dl (70-99) H 10/29/23 06:48
Vital Signs and I&O:
Vital Signs
Temp Pulse Resp BP Pulse Ox
98.6 F 84 16 107/59 91
10/29/23 08:29 10/29/23 08:29 10/29/23 08:29 10/29/23 08:29 10/29/23 08:29
Vital Signs
Temp Pulse Resp BP Pulse Ox
98.6 F 84 16 107/59 91
10/29/23 08:29 10/29/23 08:29 10/29/23 08:29 10/29/23 08:29 10/29/23 08:29
Intake & Output
10/27/23 10/28/23 10/29/23 10/30/23
07:59 07:59 07:59 07:59
Intake Total 350 / 350 1610 / 1610 1080 / 1080
Output Total 600 / 600 150 / 150 900 / 900
Balance -250 / -250 1460 / 1460 180 / 180
Physical Exam
Physical Exam
GEN: No distress, resting comfortably
LUNGS: no audible wheezes
CV: SR on tele
[2023-10-29 11:11] LABS: % Basophils 0.6 % (0-2); % Eosinophils 5.3 % (0-6); % Immature Granulocytes 0.8 % (0-0.5); % Lymphocytes 8.3 % (20.5-51.1); % Monocytes 10.5 % (1.7-9.3); % Neutrophils 74.5 % (42.2-75.2); Absolute Basophils 0.1 10^3/uL (0-0.2); Absolute Eosinophils 0.7 10^3/uL (0-0.7); Absolute Immature Granulocytes 0.1 10^3/uL (0-0.05); Absolute Lymphocytes 1.2 10^3/uL (1.2-3.4); Absolute Monocytes 1.5 10^3/uL (0.1-0.6); Absolute Neutrophils 10.5 10^3/uL (1.4-6.5); Mean Corp Hgb Conc. 33.3 g/dL (33.0-37.0); Mean Corpuscular Hgb 28.5 pg (27.0-31.0); Mean Corpuscular Volume 85.4 fL (80.0-94.0); Mean Platelet Volume 9.9 fL (7.4-10.4); Nucleated Red Blood Cells % 0.1 % (-); Platelet Count 250 10^3/uL (130-400); Red Blood Cell Count 3.16 10^6/uL (4.70-6.10); Red Cell Dist. Width 16.9 % (11.5-14.5)
[2023-10-29 11:37] VITALS: BP 118/48
[2023-10-29 11:56] LABS: Glucose - Point of Care 210 mg/dl (70-99)
--- NOTE | 2023-10-29 12:11 | W.PN.HOSP.TC ---
Today's Communication/Plan
-
Discharge today
Assessment / Plan
Assessment / Plan
Physical Exam
General: No Apparent Distress
HEENT: Normocephalic
Respiratory: Clear to Auscultation
Cardiac: S1 and S2. Regular Rhythm
GI: Soft, Nontender and Nondistended. Positive bowel sounds.
Skin: Warm. Dry.
Neuro: Awake, Alert, Oriented and AO x 3
Psych: Calm

73yo M with PMHx of HLD, CAD s/p PCI and CABG, HFrEF with recovered EF, bioprosthetic MVR, PAD s/p R femoral endarterectomy and R SFA and stent, Hx of TIA, carotid stenosis s/p L CEA, paroxysmal afib, HTN, pulmonary HTN, Hx of prostate CA, former
smoker came with nausea and vomiting, found ascending colitis on CT with concern for ischemic colitis, s/p R colectomy on 10/13. Has persistent leukocytosis most likely 2/2 recent Sx, however started to resolve off Abx. Had BM and advanced to regular
diet on 10/22/23. Developed VT on 10/22/23 and has indication for ICD, which is planned for 10/26/23 by cardiology
Developed recurrent hyperkalemia with mild respiratory acidosis, MAGY might be playing the role. Also now postOP ileus
#Ventricular Tachycardia
around 40sec run on 10/22/23
Cardio follows: ICD placed on 10/26/23 -- needs inpatient/outpatient wound check by 10/31/23 to 11/02/23
Continue telemetry
Echo: Bioprosthetic MV disfunction noted on Echo -cardiology to follow, might need GLADIS/cath
Severely increased RV pressures - can be 2/2 MV dysfunction
CTA chest negative for PE
Follow-up with Dr. Garcia and Dr. Lee in 2 to 3 days for wound check; continue post-op care instructions as per vice president global advertising sales
#Colitis, ischemic (as per pathology)
#Post OP ileus
#History of Constipation requiring enemas
#Leukocytosis
s/p ex lap with hemicolectomy and primary anastomosis on 10/13 with persistent leukocytosis
Worsening leukocytosis however no new acute fluid collection or abscess on CT on 10/19/23
Bcx repeated, NTD
Procalcitonin low
ID consulted, appreciate evaluation and recommendations
Colorectal surgery following
Had normal post-operative bowel movement, then developed ileus. Continue laxatives and milk of magnesia.
Overnight 10/26 to 10/27 patient had significant amount of bowel movement after not having a bowel movement for about a week
#Recurrent hyperkalemia - RESOLVED
Low potassium diet
CPK not elevated, no kidney failure, no medications that can cause elevation of potassium. Most likely diet-related, cannot exclude 2/2 nocturnal hypercarbia
Nephrology consulted, recommendations appreciated
#Acute on chronic HFrEF
Recovered EF as of july 2023
Cardio follows: medications restarted
Continue PO Lasix 40 mg BID
#Mild Hyponatremia
-Continue Lasix PO 40 mg BID
-Continue daily PO fluid restriction
#Anemia of chronic disease exacerbated by acute loss because of the surgery and LILIANA
IV iron
follow Hgb
1 unit of PRBCs transfused on October 29, 2023 with good improvement in Hgb
Repeat CBC within 1 week of discharge
#Paroxysmal Afib
#Pulmonary HTN
#HLD
#CAD sp CABG and failed PCI
#bioprosthetic MVR
#PAD s/p stenting
#Orthostatic hypotension
Continue home medications
Continue anticoag - heparin and switched back to Eliquis on 10/21/23
Continue Eliquis
#Increased small to moderate right pleural effusion and new small left pleural effusion on CT Imaging done on 10/27/23
-Interventional radiology and pulmonary consultations outpatient
#Recurrent hyperkalemia
low potassium diet
CPK not elevated, no kidney failure, no medications that can cause elevation of potassium. Most likely diet-related
#DM type 2 with neuropathy
Insulin SS< dm diet
Hold oral hypoglycemics
#Cholelithiasis without cholecystitis
Asymptomatic
#Intermittent hypercarbia, most likely MAGY
#Emphysematous changes on CT
#Mediastinal and perihilar lymphadenopathy
outpatient sleep study
pulmonology consult: WIll also need repeated chest CT in 3-6months
#Chronic opioid-induced constipation
Stool regimen originally held by Colorectal surgery, restarted on 10/25/23 gradually (agreed with Sx team)
DVT Prophylaxis: Eliquis
Full code
More than 30 minutes spent in discharge including
Final examination of the patient
Summarizing hospital stay
Instructions for continuing care to all relevant caregivers
Preparation of discharge records, prescriptions, and referral forms
Total time spent (in minutes): 45
Anticipated Discharge: Today
Subjective/Interval History
-
Date of Service: October 29, 2023
Patient was seen and examined. He reported feeling okay, denied any new significant symptoms or complaints.
Objective Data
-
Labs:
Laboratory Results
10/29/23 10/29/23
06:48 10:57
WBC 14.0 H
Hgb 9.0 L
Hct 27.0 L
Plt Count 250
Sodium 135
Potassium 4.5
Chloride 98
Carbon Dioxide 31 H
BUN 17
Creatinine 0.8
Glucose 114 H
Calcium 8.1 L
Vital Signs:
Vital Signs
Temp Pulse Resp BP Pulse Ox
98.3 F 70 14 118/48 93
10/29/23 11:37 10/29/23 11:37 10/29/23 11:37 10/29/23 11:37 10/29/23 11:37
I&O
10/28/23 10/29/23 10/30/23
06:59 06:59 06:59
Intake Total 1610 / 1610 1080 / 1080
Output Total 150 / 150 900 / 900
Balance 1460 / 1460 180 / 180
[2023-10-29] MEDS: FERRLECIT 110 MG IV (13:01)
[2023-10-29] MEDS: NOVOLOG FLEXPEN-LOW RESISTANCE 2 UNITS SC (13:02)
[2023-10-29] MEDS: FLUSH (NSS) 2 FLUSH IV (13:02)
--- NOTE | 2023-10-29 14:53 | CM ---
Addendum entered by Mindy Saleh 10/29/23 14:57:
IMM form explained; form signed @ [id number]
Original Note:
Met with patient and spouse at bedside to discuss discharge plan
PT recommended Home Health for PT; patient is agreeable with plan and agrees to resume HH services with [facility]; [facility] [place] [facility]
Patient requested that abdominal janet be removed prior to discharge; sent [place] Text to Attending who notified PA for surgery, Elaine Sterling
Plan: discharge to home with home health services as noted above; will transport home
[2023-10-29] MEDS: ROXICODONE 10 MG PO (15:26)
[2023-10-29 15:30] VITALS: BP 113/58
--- NOTE | 2023-10-29 15:37 | W.DS.TRANS ---
DC Summary - Inspector Balance Truing
-
Discharge Instructions:
Discharge Diagnosis/Procedures Exploratory laparotomy, right hemicolectomy, TAP
block, ICD placement
#Ventricular Tachycardia
#Pulmonary Edema
#Pleural Effusions
#Colitis, ischemic (as per pathology) s/p ex lap
with hemicolectomy and primary anastomosis
#Post-operative ileus
#History of Constipation requiring enemas
#Leukocytosis
#Recurrent hyperkalemia - RESOLVED
#Acute on chronic HFrEF
#Mild Hyponatremia
#Anemia of chronic disease exacerbated by acute
loss because of the surgery and LILIANA
#Paroxysmal Afib
#Pulmonary HTN
#HLD
#CAD sp CABG and failed PCI
#bioprosthetic MVR
#PAD s/p stenting
#Orthostatic hypotension
#Increased small to moderate right pleural
effusion and new small left pleural effusion on
CT Imaging done on 10/27/23
#Recurrent hyperkalemia
#Type 2 Diabetes Mellitus with neuropathy
#Cholelithiasis without cholecystitis
#Intermittent hypercarbia, most likely MAGY
#Emphysematous changes on CT
#Mediastinal and perihilar lymphadenopathy
#Chronic opioid-induced constipation
#Cholelithiasis
Diet Restrict fluids to 48 oz,2 Gram Sodium,Diabetic,
Carb Controlled,Low Fat,Low Cholesterol
Additional Diets Low potassium diet.
Activity No strenuous activity
Additional Activity No lifting over 10lbs (gallon of milk) for 6
weeks from surgery
Driving Restrictions Ok to drive if no abdominal pain
Bathing Restrictions OK to Shower
Blood Work CBC, CMP and Magnesium in 1 week with your
primary care provider's office
Other Services VN
Wound Care If they are not removed before you leave the
hospital, janet will be removed at your office
appointment with colorectal surgery.
Specialty Instructions Weigh Daily
Instructions: *[facility] Heart Failure Instructions
Stand-Alone Forms: DC Inst - Implanted Device
Changes to Home Medications: Yes
Discharge Medications:
DC Medications w/original date entered in [facility] [employer]
atorvastatin 80 mg tablet 80 mg PO QPM High cholesterol 01/19/20
gabapentin 600 mg tablet 600 mg PO TID Pain 12/19/22
zolpidem 5 mg tablet 5 mg PO HSPRN PRN sleep 12/19/22
acetaminophen 325 mg tablet 650 mg (2 x 325 mg) PO Q4HPRN PRN mild pain/BRAVO/temp> 100.4F #100 tabs 12/22/22
oxycodone 10 mg tablet 10 mg PO Q6H PRN Pain 02/26/23
glipizide 2.5 mg tablet, extended release 24 hr 2.5 mg PO QPM Diabetes #0 tabs 02/27/23
metformin 1,000 mg tablet 1,000 mg PO BID Diabetes #0 tabs 02/27/23
morphine 15 mg tablet,extended release 15 mg PO Q8H Pain 07/18/23
apixaban 5 mg tablet (Eliquis) 5 mg PO BID Blood clot prevention/tx #60 tabs 07/23/23
docusate sodium 100 mg capsule 100 mg PO BID Constipation #0 caps 07/23/23
furosemide 40 mg tablet 40 mg PO BID AT 0800,1600 Fluid retention/Swelling #60 tabs 07/23/23
midodrine 5 mg tablet 5 mg PO TIDPRN PRN dizziness #10 tabs 07/23/23
polyethylene glycol 3350 17 gram oral powder packet (HealthyLax) 17 g PO DAILY constipation #0 ea 07/23/23
lactulose 20 gram/30 mL oral solution 20 g (30 mL) PO DAILY #1,200 mL 10/29/23
metoprolol succinate 25 mg tablet,extended release 24 hr 37.5 mg (1.5 x 25 mg) PO BID #90 tabs 10/29/23
Home Medication Changes
Lactulose is a new medication.
Metoprolol Succinate has been increased.
Senna Laxative stopped.
Pending Results: No
Total time spent discharging patient (in min): 45
--- NOTE | 2023-10-29 16:36 | W.PN.PUL3 ---
Today's Communication / Plan
-
Telemetry visit next week to set up thoracentesis as indicated
Reviewed image findings with patient and
Reviewed importance of compliance with cardiac medications, cardiac diet discretion
Assessment
-
73-year-old male with complex history including atrial fibrillation, COPD, CAD, PAF, PAD, bladder and prostate cancer as well as diabetes and chronic heart failure in addition to chronic pain and chronic opioid dependence and mitral valve
replacement, admitted 10/12/2023 with abdominal discomfort. Hospital stay reviewed. Patient underwent exploratory laparotomy with right hemicolectomy for what was suspected to be ischemic colitis. He has recovered, then developed monomorphic VT,
now being evaluated for ICD. CT chest obtained and we are asked to comment on findings 10/24/2023
Acute colitis status post right colectomy 10/14/2023
Admitted 10/12/2023
Presented with abdominal pain, nausea
Acute on chronic heart failure
Bilateral effusions per CT imaging
Right pleural effusion per imaging
Monomorphic VT 10/22/2023
Awaiting ICD 10/25
Mediastinal/hilar adenopathy per CT chest 10/24/2023
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
Worsening mitral valve gradients per echo 10/23/2023
Pulmonary hypertension
PA pressure 78, progressive per echo 10/23/2023
Coronary disease
History of CABG
History of unsuccessful attempted PCI LAD 2015
Atrial fibrillation on anticoagulation
Peripheral arterial disease
Right femoral endarterectomy, right iliac stent 2015
Right SFA and popliteal [employer]ERK/stent 2019
Left great toe amputation 2014, chronic wound issues in the past
Bilateral femoropopliteal bypass 2015
Status post left carotid endarterectomy 2022
History of cardiomyopathy EF 15%, improved per recent echo, now 68%
Conditions present prior to admission
COPD
[id number] history of smoking quit 2007
Bladder cancer.�
Prostate cancer
Prostatectomy 2007
Diabetes.�
Chronic pain syndrome, chronic opioid use
Marijuana use for pain
Hypertension/Hyperlipidemia.�
DNR
Plan/recommendations
Asked to see patient again regarding pleural effusion
Hospitalist is recommending outpatient follow-up
I reviewed with patient and at bedside
Plan will be to have televisit next week and then we will set up right-sided thoracentesis with appropriate studies as indicated
If there are any worsening symptoms, patient was instructed to contact us or cardiology
Reviewed importance of compliance with medications, compliance with diet/salt
Also reiterated importance of follow-up imaging in February 2024 regarding adenopathy which I suspect is related to fluid overload
No indication for maintenance inhaler therapy at this time
Patient is status post ICD
DVT prophylaxis: On Eliquis
GI prophylaxis: Not indicated
Follow-up information reviewed again with patient,
Appointment made on behalf of patient
Diagnostic data:
Chest x-ray 03/03/2023: No active disease
Echo 10/23/2023: Normal biventricular function, EF 68%, mitral valve gradients have worsened, moderate MR, PA pressure 78, worsened
Echocardiogram 09/01/2022: EF 50%, bioprosthetic mitral valve, aortic sclerosis, normal right heart, cannot measure right heart pressures
Cardiac catheterization 01/23/2020-left main and three-vessel CAD occlusion, patent sequential SVG to diagonal OM PDA and collaterals to LAD, known occluded QUIÑONES to LAD, anterolateral wall hypokinesis
Subjective Data
-
Date of Service:
Date of Service: October 29, 2023
Subjective:
Asked to see patient for pleural effusion. Primary service would like to follow-up as outpatient. Patient is ready to leave, at bedside. Patient appears to be comfortable, conversant
Objective Data
Data Reviewed
Vital Signs / I&O / Oxygen:
Vital Signs
Temp Pulse Resp BP Pulse Ox
98.5 F 77 12 113/58 94
10/29/23 15:30 10/29/23 15:30 10/29/23 15:30 10/29/23 15:30 10/29/23 15:30
Intake and Output
10/28/23 10/29/23 10/30/23
06:59 06:59 06:59
Intake Total 1610 / 1610 1080 / 1080
Output Total 150 / 150 900 / 900
Balance 1460 / 1460 180 / 180
SaO2 94
Nasal Cannula flow liters per 2
minute
Physical Exam
General: Comfortable
HEENT: Normocephalic and Anicteric
Cardiovascular: S1-S2, Regular Rhythm, Murmur (n) and Rub (n)
Respiratory: Wheeze (n), Crackles (Mild at base), Rhonchi (n), Non-Labored Respirations and Other (Decreased right base, mild dullness)
GI: Soft, Non Distended, Non Tender and Other (Lower abdominal incision intact)
Neurology: Awake, Alert and No Motor Deficits
Skin: Cyanosis (n), Jaundice (n) and Rash (n)
Labs/Micro/Reports
Lab Data
10/29/23 10:57
10/29/23 06:48
Microbiology
10/27/23 09:30 Blood/Venous Blood Culture - Preliminary
No Growth in 48 hours- Final report to follow
10/27/23 15:29 Urine Urine Culture - Final
--- NOTE | 2023-11-06 12:14 | W.DCSUMMARY ---
Discharge Summary
Discharge Data
Date of Admission: 10/12/23
Date of Discharge: 10/29/23
Total time spent discharging patient (in min): 45
-
Pending Results: No
Hospital Course
73-year-old male with a past medical history of flash pulmonary edema, orthostasis, CAD, CHF, atrial fibrillation, PVD, diabetes, neuropathy who presented to the emergency department for evaluation of shortness of breath of a 1-day duration, worse
with exertion. He reported right-sided abdominal pain for the few days prior to presentation. He also had been vomiting along with his abdominal pain. Patient's Eliquis was held and he was started on Heparin Drip. Patient was continued on
antibiotics and colorectal surgery was consulted given findings of colitis and markedly atherosclerotic superior mesenteric artery on imaging. Patient was planned for surgery (given his worsening WBC count, fever and pain) and cardiology was
consulted. On October 13, 2023, patient had exploratory laparotomy, right hemicolectomy, and TAP block. Patient had a period of ileus post-op, he needed to be kept NPO, and anticoagulation was able to be restarted. He was also placed on intravenous
Lasix. Infectious Disease was consulted for worsening leukocytosis, they recommended observing off antibiotics since no obvious source of infection was identified. He was gradually able to be restarted on a diet. Heparin Drip was soon transitioned
to oral Eliquis. Patient had sustained monomorphic ventricular tachycardia, and echocardiogram was done showing bioprosthetic MV disfunction and severely increased RV pressures -- which could be secondary to MV dysfunction. Patient's beta heath
was increased to allow increased LV filling time given prosthetic mitral stenosis. On October 26, 2023, patient had a successful implant of dual chamber ICD system.
Pulmonary was consulted given patient's pleural effusions, suspected to be from volume overload/heart failure, on CT imaging. His hilar adenopathy was also noted and [address] imaging follow-up was recommended.
Nephrology was consulted for patient's hyperkalemia. It was recommended patient follow a low potassium diet and Lokelma was given.
Patient received red blood cells transfusion given his Hgb was less than 8 in the setting of coronary artery disease.
Discharge Plan
-
Patient Disposition: Home with Home Care
Discharge Diagnosis/Procedures: Exploratory laparotomy, right hemicolectomy, TAP block, ICD placement
#Ventricular Tachycardia
#Pulmonary Edema
#Pleural Effusions
#Colitis, ischemic (as per pathology) s/p ex lap with hemicolectomy and primary anastomosis
#Post-operative ileus
#History of Constipation requiring enemas
#Leukocytosis
#Recurrent hyperkalemia - RESOLVED
#Acute on chronic HFrEF
#Mild Hyponatremia
#Anemia of chronic disease exacerbated by acute loss because of the surgery and LILIANA
#Paroxysmal Afib
#Pulmonary HTN
#HLD
#CAD sp CABG and failed PCI
#bioprosthetic MVR
#PAD s/p stenting
#Orthostatic hypotension
#Increased small to moderate right pleural effusion and new small left pleural effusion on CT Imaging done on 10/27/23
#Recurrent hyperkalemia
#Type 2 Diabetes Mellitus with neuropathy
#Cholelithiasis without cholecystitis
#Intermittent hypercarbia, most likely MAGY
#Emphysematous changes on CT
#Mediastinal and perihilar lymphadenopathy
#Chronic opioid-induced constipation
#Cholelithiasis
Diet: Low Fat, Low Cholesterol, 2 Gram Sodium, Diabetic, Carb Controlled and Restrict fluids to 48 oz
Additional Diets: Low potassium diet.
Activity: No strenuous activity
Additional Activity: No lifting over 10lbs (gallon of milk) for 6 weeks from surgery
Driving Restrictions: Ok to drive if no abdominal pain
Bathing Restrictions: OK to Shower
Blood Work: CBC, CMP and Magnesium in 1 week with your primary care provider's office
Other Services: VN
Wound Care: If they are not removed before you leave the hospital, janet will be removed at your office appointment with colorectal surgery.
Specialty Instructions: Weigh Daily- Call MD for wt gain/loss 3 lbs overnight/5 lbs in 1 week
Activity Restrictions/Additional Instructions:
Follow-up with Dr. Garcia and Dr. Lee in 2 to 3 days for wound check for your ICD; continue post-op care instructions as per healthcare consultant
Instructions: *[facility] Heart Failure Instructions
Stand Alone Forms: DC Inst - Implanted Device
Referrals:
Kyler Pascual MD [Active] -
(hospitalist has requested f/u as op, rt thora if needed
Please have pt with tele visit ([employer]) with us in 1 week to set up
will need eventual CT chest in Feb 2024 with Ankur f/u at that time
)
Chris Garcia DO [Active] - 11/04/23 2:00 pm (Post device incision check and cardiology followup appointment )
Stanton Pettit MD [Active] - in four to six weeks (SMA atherosclerosis on [facility] imaging. Aortic Atherosclerosis.)
Sivakumar Patel MD [Family Provider] - in less than 1 week (Hospital follow-up)
Eyal Kerr MD [Active] - in two weeks
Additional Discharge Medication Instructions: Lactulose is a new medication.
Metoprolol Succinate has been increased.
Senna Laxative stopped.
Prescriptions:
New
lactulose 20 gram/30 mL Solution
20 g PO DAILY Qty: 1200 1RF
metoprolol succinate 25 mg Tablet Extended Release 24 Hr
37.5 mg PO BID Qty: 90 1RF
Continued
atorvastatin 80 MG tablet
80 mg PO QPM
gabapentin 600 mg Tablet
600 mg PO TID
zolpidem 5 mg Tablet
5 mg PO HSPRN PRN (Reason: sleep)
Patient Comments:
11/04/2023: last filled 06/01/23, 30 tabs for 30 days from [facility][id number]
acetaminophen 325 mg Tablet
650 mg PO Q4HPRN PRN (Reason: mild pain/BRAVO/temp> 100.4F) Qty: 100 0RF
oxycodone 10 mg tablet
10 mg PO Q6H PRN (Reason: Pain)
Patient Comments:
11/04/2023: last filled 10/16/23, 120 tabs for 30 days from [facility]
glipizide 2.5 MG tablet extended release 24hr
2.5 mg PO QPM Qty: 0 0RF
metformin 1,000 MG tablet
1,000 mg PO BID Qty: 0 0RF
morphine 15 mg tablet extended release
15 mg PO Q8H
Patient Comments:
11/04/2023: last filled 10/16/23, 90 tabs for 30 days from [facility]
furosemide 40 mg Tablet
40 mg PO BID AT 0800,1600 Qty: 60 0RF
docusate sodium 100 mg Capsule
100 mg PO BID Qty: 0 0RF
polyethylene glycol 3350 [HealthyLax] 17 gram powder in packet
17 g PO DAILY Qty: 0 0RF
Eliquis 5 mg tablet
5 mg PO BID Qty: 60 1RF
Patient Comments:
10/12/23: patient states he gets free samples
midodrine 5 mg Tablet
5 mg PO TIDPRN PRN (Reason: dizziness) Qty: 10 0RF
Discontinued
sennosides [Senna Laxative] 8.6 mg Tablet
17.2 mg PO BID Qty: 0 0RF
metoprolol succinate 25 mg Tablet Extended Release 24 Hr
12.5 mg PO DAILY Qty: 30 0RF
Discharge Orders:
Discharge Patient (As Directed); Ordered 10/29/23
Ordered By: Holland Mello
Discharge Date and Time
Discharge Date/Time: 10/29/23 17:11
Print Language: WOLOF
== END 2023-10-29 17:11 | disposition home health service (06) | DRG 853 ==
LOC: 2 SOUTH 17:08
PROVIDERS: Internal Medicine; Internal Medicine Cardiovascular Disease; Physician Assistant; Registered Nurse; ADMITTING PHYSICIAN Hospitalist; CONSULT PHYSICIAN Internal Medicine; CONSULT PHYSICIAN Internal Medicine Critical Care Medicine; CONSULT PHYSICIAN Internal Medicine Infectious Disease; CONSULT PHYSICIAN Nuclear Medicine Nuclear Cardiology; CONSULT PHYSICIAN Surgery; EMERGENCY PHYSICIAN Emergency Medicine; FAMILY PHYSICIAN Family Medicine
PROC: 0DTF0ZZ Resection of Right Large Intestine, Open Approach (ICD-10-PCS; 2023-10-13)
PROC: 3E0T3BZ Introduction of Anesthetic Agent into Peripheral Nerves and Plexi, Percutaneous Approach (ICD-10-PCS; 2023-10-13)
PROC: 3E0T33Z Introduction of Anti-inflammatory into Peripheral Nerves and Plexi, Percutaneous Approach (ICD-10-PCS; 2023-10-13)
PROC: 02H63KZ Insertion of Defibrillator Lead into Right Atrium, Percutaneous Approach (ICD-10-PCS; 2023-10-26)
PROC: 02HK3KZ Insertion of Defibrillator Lead into Right Ventricle, Percutaneous Approach (ICD-10-PCS; 2023-10-26)
PROC: 0JH608Z Insertion of Defibrillator Generator into Chest Subcutaneous Tissue and Fascia, Open Approach (ICD-10-PCS; 2023-10-26)
PROC: 30233N1 Transfusion of Nonautologous Red Blood Cells into Peripheral Vein, Percutaneous Approach (ICD-10-PCS; 2023-10-28)
DX: A41.9 Sepsis, unspecified organism (principal); I50.33 Acute on chronic diastolic (congestive) heart failure; R18.8 Other ascites; J90 Pleural effusion, not elsewhere classified; F11.20 Opioid dependence, uncomplicated; K55.9 Vascular disorder of intestine, unspecified; I47.19 Other supraventricular tachycardia; K56.7 Ileus, unspecified; I47.20 Ventricular tachycardia, unspecified; J98.11 Atelectasis; E87.1 Hypo-osmolality and hyponatremia; E87.29 Other acidosis; D62 Acute posthemorrhagic anemia; K52.9 Noninfective gastroenteritis and colitis, unspecified; I25.10 Atherosclerotic heart disease of native coronary artery without angina pectoris; E11.51 Type 2 diabetes mellitus with diabetic peripheral angiopathy without gangrene; I48.0 Paroxysmal atrial fibrillation; E11.40 Type 2 diabetes mellitus with diabetic neuropathy, unspecified; E78.00 Pure hypercholesterolemia, unspecified; I95.1 Orthostatic hypotension; J44.9 Chronic obstructive pulmonary disease, unspecified; R42 Dizziness and giddiness; K80.20 Calculus of gallbladder without cholecystitis without obstruction; I27.20 Pulmonary hypertension, unspecified; F12.90 Cannabis use, unspecified, uncomplicated; G89.4 Chronic pain syndrome; D63.8 Anemia in other chronic diseases classified elsewhere; G47.00 Insomnia, unspecified; I25.5 Ischemic cardiomyopathy; I11.0 Hypertensive heart disease with heart failure; E87.5 Hyperkalemia; G47.33 Obstructive sleep apnea (adult) (pediatric); R59.0 Localized enlarged lymph nodes; T40.2X5A Adverse effect of other opioids, initial encounter; R06.89 Other abnormalities of breathing; K59.03 Drug induced constipation; Z66 Do not resuscitate; Z95.3 Presence of xenogenic heart valve; Z95.1 Presence of aortocoronary bypass graft; Z95.820 Peripheral vascular angioplasty status with implants and grafts; Z90.79 Acquired absence of other genital organ(s); Z89.412 Acquired absence of left great toe; Z87.891 Personal history of nicotine dependence; Z79.01 Long term (current) use of anticoagulants; Z79.84 Long term (current) use of oral hypoglycemic drugs; Z91.013 Allergy to seafood; Z86.73 Personal history of transient ischemic attack (TIA), and cerebral infarction without residual deficits; Z85.51 Personal history of malignant neoplasm of bladder; Z86.010 Personal history of colon polyps; Z85.46 Personal history of malignant neoplasm of prostate; Z80.3 Family history of malignant neoplasm of breast; Z80.42 Family history of malignant neoplasm of prostate
CPT/HCPCS: 88307; 33249; 71045; 71275; 74018; 74022; 74177; 80048; 80053; 80061; 81003; 81015; 82248; 82550; 82570; 82607; 82728; 82746; 82805; 82947; 82962; 83036; 83540; 83550; 83605; 83615; 83690; 83735; 83880; 84100; 84132; 84133; 84145; 84300; 84439; 84443; 84484; 85014; 85018; 85025; 85027; 85045; 85730; 86850; 86900; 86901; 86920; 87040; 87086; 93005; 93306; 94640; 96365; 96375; 97116; 97162; 97530; 99285; C1721; C1776; C1777; C1892; C1898; J2916; J7168; P9016; Q9967

== ENCOUNTER 2023-11-04 20:53 | Inpatient (IN) | payer MEDICARE, OTHER, SELFPAY ==
[2023-11-04] VITALS (7 sets, daily range): BP systolic 118–130; BP diastolic 59–74; BMI 21.9; BMI 21.5
[2023-11-04 16:02] LABS: % Basophils 0.5 % (0-2); % Eosinophils 2.1 % (0-6); % Lymphocytes 5.4 % (20.5-51.1); % Monocytes 7.3 % (1.7-9.3); % Neutrophils 83.7 % (42.2-75.2); Absolute Basophils 0.1 10^3/uL (0-0.2); Absolute Eosinophils 0.4 10^3/uL (0-0.7); Absolute Immature Granulocytes 0.2 10^3/uL (0-0.05); Absolute Monocytes 1.3 10^3/uL (0.1-0.6); Absolute Neutrophils 15.3 10^3/uL (1.4-6.5); Hematocrit 31.9 % (39.0-52.0); Hemoglobin 10.7 g/dL (13.0-18.0); Mean Corp Hgb Conc. 33.5 g/dL (33.0-37.0); Mean Corpuscular Hgb 27.9 pg (27.0-31.0); Mean Corpuscular Volume 83.1 fL (80.0-94.0); Mean Platelet Volume 10.2 fL (7.4-10.4); Nucleated Red Blood Cells % 0 % (-); Platelet Count 240 10^3/uL (130-400); Red Blood Cell Count 3.84 10^6/uL (4.70-6.10); Red Cell Dist. Width 16.7 % (11.5-14.5); White Blood Cell Count 18.2 10^3/uL (4.8-10.8)
--- NOTE | 2023-11-04 16:24 | ED.GENMED ---
History of Present Illness
<Vesta Boles MD, Resident - Last Filed: 11/04/23 22:13>
General
Chief Complaint: Breathing Problem
Time Seen by Provider: 11/04/23 16:18
History of Present Illness
History of Present Illness:
Patient is a 73 year old male presented to ER this evening complaining from shortness of breath which started about one hour ago. The patient reports that he was fine and did not have this much difficulty with breathing since his discharge. About 2
hours ago he started to have difficulty with breathing and he vomited too. He reported some abdominal pain. He denied chest pain, back pain and losing his concussion. Reports feeling weak not to be able to sit down or stand up currently. He denied
any blood with vomiting. His last bowel movement was yesterday and was normal.
By the review his last admission chart
The patient was discharged from the hospital on 10/29/23
Admitted 10/12/2023 with abdominal discomfort
Acute colitis status post right colectomy 10/14/2023
Bilateral effusions per CT imaging
Right pleural effusion per imaging
Monomorphic VT 10/22/2023
Awaiting ICD 10/25
Mediastinal/hilar adenopathy per CT chest 10/24/2023
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
Worsening mitral valve gradients per echo 10/23/2023
Pulmonary hypertension
PA pressure 78, progressive per echo 10/23/2023
Conditions present prior to admission last time on 10/14/23
COPD
Coronary disease
History of CABG
[id number] history of smoking quit 2007
Bladder cancer.�
Prostate cancer
Prostatectomy 2007
Diabetes.�
Chronic pain syndrome, chronic opioid use
Marijuana use for pain
Hypertension/Hyperlipidemia.�
History of unsuccessful attempted PCI LAD 2015
Atrial fibrillation on anticoagulation
Peripheral arterial disease
Right femoral endarterectomy, right iliac stent 2015
Right SFA and popliteal [employer] TECH[employer]IST/stent 2019
Left great toe amputation 2014, chronic wound issues in the past
Bilateral femoropopliteal bypass 2015
Status post left carotid endarterectomy 2022
History of cardiomyopathy EF 15%, improved per recent echo, now 68%
DNR
If applicable-neuro sx onset
Date of onset of symptoms: 11/04/23
Past History
<Vesta Boles MD, Resident - Last Filed: 11/04/23 22:13>
Past History
ED Past Medical History: Arrthythmia (Atrial fib), CAD, Cancer (Prostate, Bladder), CHF, HTN, Hypercholesterolemia, NIDDM and Other (Diabetic neuropathy, Left foot drop, Frequent Syncope, Pericarditis, PVD, Numbness and tingling)
ED Past Surgical History: Cardiac (CABG with Mitral valve replaced), Orthopedic (Left Shoulder surgery), Urological (Prostatectomy) and Other (Amputation left great toe, Bypass left groin, Left fempop bypass. Left leg stent, )
Social History
Tobacco: Former smoker
Alcohol: None
Drug: None
Personal:
Living: with family
Employment: Employed
Family History
Family History: Hypertension
Phy Exam
<Vesta Boles MD, Resident - Last Filed: 11/04/23 22:13>
General Physical Exam
General Presentation: moderate distress
General Skin: dry
General Mental: alert
Cardiovascular Exam
Cardiovascular Exam: no edema, no JVD, diastolic murmur and systolic murmur
Pulmonary Exam
Pulmonary Exam: decreased breath sounds, respiratory distress and other (on right lung base decreased breath sounds )
Gastrointestinal Exam
Gastrointestinal Exam: tender (sensitive to palpation general) and other
Palpation: right upper quadrant: Mild tenderness and right lower quadrant: Mild tenderness
Neurological Exam
Neurological Exam: alert, oriented x3 and no motor deficits
Scores
<Vesta Boles MD, Resident - Last Filed: 11/04/23 22:13>
Heart Failure Risk
Heart Failure Risk Score: Not Applicable
Course
<Vesta Boles MD, Resident - Last Filed: 11/04/23 22:13>
Orders/Labs/Results
Orders:
Orders
11/04/23 Dinner
Clear Liquid
At Your Request: Full Participation
Clear Liquid
At Your Request: Full Participation
11/04/23 15:42
Electrocardiogram (*1) Urgent
Reason for Study: Shortness of Breath
11/04/23 15:43
EKG- Treatment ONCE
11/04/23 15:50
Complete Blood Count/With Diff Urgent
11/04/23 16:30
CR Chest - 2 Views Urgent
Comment:
Reason For Exam: sob
11/04/23 16:32
Comprehensive Metabolic Panel Urgent
11/04/23 16:43
CT Abd/pelvis W Iv Cont Urgent
Comment:
Reason For Exam: abdominal pain
11/04/23 17:47
COVID-19 Antigen Urgent
Source: Nasal Swab
11/04/23 19:04
Piperacillin/Tazo 4.5 Gram [Zosyn] 4.5 gram in 100 ml IV ONCE
11/04/23 20:18
Chest Right US [US Chest - Right] Routine
Comment:
Reason For Exam: right plueral effusion
11/04/23 20:21
PULMONARY CONSULT Routine
Consulting Provider: Blayne Moore
Was physician already notified: Yes
Reason for consult: sm rigt plueral effusion
11/04/23 20:23
HYDROmorphone [Dilaudid] 1 mg IV Q4HPRN PRN
Ondansetron Injectable [Zofran] 4 mg IV Q6HPRN PRN
11/04/23 20:29
Admit/Transfer Patient As Directed
Co-Sign Provider:
Level of Care: Inpatient admission
Assign to:: Telemetry
Physician / Group: louis cooley
Diagnosis: r sided colitis s/p hemicolectomy, constipation ,right pueral eff
Reason for Telemetry: Arrhythmia
Date to Stop Telemetry: 11/07/23
Time to Stop Telemetry: 11:00
Reason for Hospitalization: r sided colitis s/p hemicolectomy, constipation ,right pueral eff
Expected length of stay greater than two midnights?: Yes
ELOS- Estimated Length of Stay in days: 4
I certify the patient meets the requirements for IP care: Yes
11/04/23 20:30
Code Status As Directed
Resuscitation Status: Full Code
11/04/23 20:33
PRN Pain Medication Management As Directed
May give lesser potent ordered pain med per pt: Yes
preference::
Protocol:: Medication orders for pain may be administered in a
manner that supports deferring to patient preference
when the pt is:
- Requesting an ordered lesser potent pain medication.
Least to most potent pain medications are defined
as: acetaminophen < NSAID < tramadol < opioids
(morphine, oxycodone, hydromorphone).
- Requesting a lesser dose of the same medication IF
ORDERED.
- Requesting a less intrusive route of administration
if both routes are prescribed by the provider (PO <
IV).
11/04/23 20:35
SURGICAL CONSULT Routine
Consulting Provider: Jamie Hope
Was physician already notified: Yes
Reason for consult: right sided colitis s/p colectomy
11/04/23 21:16
Acetaminophen [Tylenol] 650 mg PO Q4HPRN PRN
Midodrine [ProAmatine] 5 mg PO TIDPRN PRN
Oxycodone [Roxicodone] 10 mg PO Q6HPRN PRN
Zolpidem Tartrate [Ambien] 5 mg PO HSPRN PRN
11/04/23 21:16
VTE Contraindication Routine
VTE Mechanical Device Contraindication: Medical Contraindication
Pharmocologic Contraindication: Medical Contraindication
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
Activity As Directed
Activity Level: As Tolerated
Intake/ Output As Directed
Frequency: Per unit guidelines
Vital Signs As Directed
Frequency: Per unit guidelines
Weight As Directed
Frequency: Daily
Pulse Ox/spot Check [RESP] Routine
Quantity: 1
Ot Eval And Treat Routine
Pt Eval And Treat Routine
Activity Level: As Tolerated
11/04/23 22:00
Gabapentin [Neurontin] 600 mg PO TID
Morphine Sulfate Extended Rel. [Ms Contin (Extended Release)] 15 mg PO Q8H
11/05/23 02:00
Piperacillin/Tazo 4.5 Gram [Zosyn] 4.5 gram in 100 ml IV Q6H
11/05/23 06:00
Complete Blood Count/With Diff IN AM
Comprehensive Metabolic Panel IN AM
11/05/23 08:00
Apixaban [Eliquis] 5 mg PO BID
Furosemide [Lasix] 40 mg PO BID AT 0800,1600
Metoprolol Xl [Toprol Xl] 37.5 mg PO BID
11/05/23 18:00
Atorvastatin [Lipitor] 80 mg PO QPM
11/06/23 06:00
Complete Blood Count/With Diff IN AM
Comprehensive Metabolic Panel IN AM
11/07/23 06:00
Complete Blood Count/With Diff IN AM
Comprehensive Metabolic Panel IN AM
11/07/23 11:00
DC Protocol for Telemetry ONCE
11/08/23 06:00
Complete Blood Count/With Diff IN AM
Comprehensive Metabolic Panel IN AM
Abnormal Lab Results
11/04/23 11/04/23
15:50 16:32
WBC 18.2 H 10^3/uL
(4.8-10.8)
RBC 3.84 L 10^6/uL
(4.70-6.10)
Hgb 10.7 L g/dL
(13.0-18.0)
Hct 31.9 L %
(39.0-52.0)
RDW 16.7 H %
(11.5-14.5)
Abs Immat Gran (auto) 0.2 H 10^3/uL
(0-0.05)
Absolute Neuts (auto) 15.3 H 10^3/uL
(1.4-6.5)
Absolute Lymphs (auto) 1.0 L 10^3/uL
(1.2-3.4)
Absolute Monos (auto) 1.3 H 10^3/uL
(0.1-0.6)
Immature Gran % 1.0 H %
(0-0.5)
Neutrophils % 83.7 H %
(42.2-75.2)
Lymphocytes % 5.4 L %
(20.5-51.1)
Glucose 122 H mg/dl
(70-99)
Albumin 3.4 L g/dl
(3.5-5.0)
11/04/23 15:50
11/04/23 16:32
Vital Signs
Initial and Last Documented VS:
Initial Vital Signs
Temp Pulse Resp BP Pulse Ox
97.6 F 80 14 121/66 91
11/04/23 15:41 11/04/23 15:41 11/04/23 15:41 11/04/23 15:41 11/04/23 15:41
Last Documented Vital Signs
Temp Pulse Resp BP Pulse Ox
97.8 F 93 18 118/74 95
11/04/23 21:36 11/04/23 21:36 11/04/23 21:36 11/04/23 21:36 11/04/23 21:36
<Patel Ross MD - Last Filed: 11/04/23 23:09>
Orders/Labs/Results
Orders:
Orders
11/04/23 Dinner
Clear Liquid
At Your Request: Full Participation
Clear Liquid
At Your Request: Full Participation
11/04/23 15:42
Electrocardiogram (*1) Urgent
Reason for Study: Shortness of Breath
11/04/23 15:43
EKG- Treatment ONCE
11/04/23 15:50
Complete Blood Count/With Diff Urgent
11/04/23 16:30
CR Chest - 2 Views Urgent
Comment:
Reason For Exam: sob
11/04/23 16:32
Comprehensive Metabolic Panel Urgent
11/04/23 16:43
CT Abd/pelvis W Iv Cont Urgent
Comment:
Reason For Exam: abdominal pain
11/04/23 17:47
COVID-19 Antigen Urgent
Source: Nasal Swab
11/04/23 19:04
Piperacillin/Tazo 4.5 Gram [Zosyn] 4.5 gram in 100 ml IV ONCE
11/04/23 20:18
Chest Right US [US Chest - Right] Routine
Comment:
Reason For Exam: right plueral effusion
11/04/23 20:21
PULMONARY CONSULT Routine
Consulting Provider: Blayne Moore
Was physician already notified: Yes
Reason for consult: sm rigt plueral effusion
11/04/23 20:23
HYDROmorphone [Dilaudid] 1 mg IV Q4HPRN PRN
Ondansetron Injectable [Zofran] 4 mg IV Q6HPRN PRN
11/04/23 20:29
Admit/Transfer Patient As Directed
Co-Sign Provider:
Level of Care: Inpatient admission
Assign to:: Telemetry
Physician / Group: louis cooley
Diagnosis: r sided colitis s/p hemicolectomy, constipation ,right pueral eff
Reason for Telemetry: Arrhythmia
Date to Stop Telemetry: 11/07/23
Time to Stop Telemetry: 11:00
Reason for Hospitalization: r sided colitis s/p hemicolectomy, constipation ,right pueral eff
Expected length of stay greater than two midnights?: Yes
ELOS- Estimated Length of Stay in days: 4
I certify the patient meets the requirements for IP care: Yes
11/04/23 20:30
Code Status As Directed
Resuscitation Status: Full Code
11/04/23 20:33
PRN Pain Medication Management As Directed
May give lesser potent ordered pain med per pt: Yes
preference::
Protocol:: Medication orders for pain may be administered in a
manner that supports deferring to patient preference
when the pt is:
- Requesting an ordered lesser potent pain medication.
Least to most potent pain medications are defined
as: acetaminophen < NSAID < tramadol < opioids
(morphine, oxycodone, hydromorphone).
- Requesting a lesser dose of the same medication IF
ORDERED.
- Requesting a less intrusive route of administration
if both routes are prescribed by the provider (PO <
IV).
11/04/23 20:35
SURGICAL CONSULT Routine
Consulting Provider: Jamie Hope
Was physician already notified: Yes
Reason for consult: right sided colitis s/p colectomy
11/04/23 21:16
Acetaminophen [Tylenol] 650 mg PO Q4HPRN PRN
Midodrine [ProAmatine] 5 mg PO TIDPRN PRN
Oxycodone [Roxicodone] 10 mg PO Q6HPRN PRN
Zolpidem Tartrate [Ambien] 5 mg PO HSPRN PRN
11/04/23 21:16
VTE Contraindication Routine
VTE Mechanical Device Contraindication: Medical Contraindication
Pharmocologic Contraindication: Medical Contraindication
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
Activity As Directed
Activity Level: As Tolerated
Intake/ Output As Directed
Frequency: Per unit guidelines
Vital Signs As Directed
Frequency: Per unit guidelines
Weight As Directed
Frequency: Daily
Pulse Ox/spot Check [RESP] Routine
Quantity: 1
Ot Eval And Treat Routine
Pt Eval And Treat Routine
Activity Level: As Tolerated
11/04/23 22:00
Gabapentin [Neurontin] 600 mg PO TID
Morphine Sulfate Extended Rel. [Ms Contin (Extended Release)] 15 mg PO Q8H
11/05/23 02:00
Piperacillin/Tazo 4.5 Gram [Zosyn] 4.5 gram in 100 ml IV Q6H
11/05/23 06:00
Complete Blood Count/With Diff IN AM
Comprehensive Metabolic Panel IN AM
11/05/23 08:00
Apixaban [Eliquis] 5 mg PO BID
Furosemide [Lasix] 40 mg PO BID AT 0800,1600
Metoprolol Xl [Toprol Xl] 37.5 mg PO BID
11/05/23 18:00
Atorvastatin [Lipitor] 80 mg PO QPM
11/06/23 06:00
Complete Blood Count/With Diff IN AM
Comprehensive Metabolic Panel IN AM
11/07/23 06:00
Complete Blood Count/With Diff IN AM
Comprehensive Metabolic Panel IN AM
11/07/23 11:00
DC Protocol for Telemetry ONCE
11/08/23 06:00
Complete Blood Count/With Diff IN AM
Comprehensive Metabolic Panel IN AM
Abnormal Lab Results
11/04/23 11/04/23
15:50 16:32
WBC 18.2 H 10^3/uL
(4.8-10.8)
RBC 3.84 L 10^6/uL
(4.70-6.10)
Hgb 10.7 L g/dL
(13.0-18.0)
Hct 31.9 L %
(39.0-52.0)
RDW 16.7 H %
(11.5-14.5)
Abs Immat Gran (auto) 0.2 H 10^3/uL
(0-0.05)
Absolute Neuts (auto) 15.3 H 10^3/uL
(1.4-6.5)
Absolute Lymphs (auto) 1.0 L 10^3/uL
(1.2-3.4)
Absolute Monos (auto) 1.3 H 10^3/uL
(0.1-0.6)
Immature Gran % 1.0 H %
(0-0.5)
Neutrophils % 83.7 H %
(42.2-75.2)
Lymphocytes % 5.4 L %
(20.5-51.1)
Glucose 122 H mg/dl
(70-99)
Albumin 3.4 L g/dl
(3.5-5.0)
11/04/23 15:50
11/04/23 16:32
Vital Signs
Initial and Last Documented VS:
Initial Vital Signs
Temp Pulse Resp BP Pulse Ox
97.6 F 80 14 121/66 91
11/04/23 15:41 11/04/23 15:41 11/04/23 15:41 11/04/23 15:41 11/04/23 15:41
Last Documented Vital Signs
Temp Pulse Resp BP Pulse Ox
97.8 F 93 18 118/74 95
11/04/23 21:36 11/04/23 21:36 11/04/23 21:36 11/04/23 21:36 11/04/23 21:36
<Vesta Boles MD, Resident - Last Filed: 11/04/23 22:13>
MDM/Problems Addressed
Differential Diagnosis Includes:
Acute Exacerbation on CHF, Pleural effusion, OK, PNA, Bowel problems
MDM/Problems Addressed:
EKG, CBC, CMP, chest x-ray, abdominal CT, COVID test was ordered.
CBC showed elevated white blood cell and chest x-ray result showed small right pleural effusion with bibasilar interstitial and airspace opacities suggestive of infectious/inflammatory bronchiolitis, overall slightly improved from prior. Therefore
it was thought that the patient does not have excess exacerbated chronic heart failure. Because the patient had COVID 12 days ankle and developed shortness of breath the patient probably have an infectious inflammatory bronchiolitis. Abd CT showed
severe uncomplicated right-sided colitis likely infectious/inflammatory etiology, new from prior and Small to moderate right pleural effusion and Infectious/inflammatory bronchiolitis throughout the left lower lobe. The patient's abdomen was
tender to palpation and he was complaining about his bowel movements. Therefore it is highly possible the patient developed an acute colitis. It was decided to admit the patient to the hospital due to complexity case complexity of the case.
<Vesta Boles MD, Resident - Last Filed: 11/04/23 22:13>
*Critical Care Note
Total Time (30-74mins, 75-104mins- exclusive of procedures): Not Applicable
ED Attending Note
<Vesta Boles MD, Resident - Last Filed: 11/04/23 22:13>
-
Portions of this chart may have been created with voice recognition software.� Occasional wrong word or��sound alike� substitutions may have occurred due to the inherent limitations of voice recognition software.
<Patel Ross MD - Last Filed: 11/04/23 23:09>
ED Attending Note
Patient seen and examined by attending physician: Yes
I performed a history and physical exam of patient and discussed management with resident, I reviewed resident's note and agree with documented findings and plan of care.: Yes
ED Attending Note:
Patient is a 73-year-old male with extensive past medical history including hypertension, hyperlipidemia, CAD, heart failure with ICD, A-fib on anticoagulation, peripheral arterial disease presenting to the emergency department with shortness of
breath. Patient states that he was here in the hospital. Per chart review patient had a right-sided colectomy on October 13 during his last admission. He was also found to be having a heart failure exacerbation requiring diuresis and also an episode
of V. tach requiring ICD placement. Patient states that has been having difficulty having bowel move since he was discharged. He did have a bowel movement yesterday. Said he was taking his usual pills when he became nauseous. He then had sudden
onset of shortness of breath. He is also having some fevers chills and a cough. Upon medics arrival he was hypoxic so we placed him on nasal cannula. He does feel much better now. Denies any chest pain. The difficulty breathing has resolved.
No numbness tingling. No weakness. He is compliant with his anticoagulation. Vitals here are notable for requiring nasal cannula. Exam does show bilateral lower base crackles and a diffusely tender abdomen with well-healing scars. Differential
consists of pleural effusion versus pneumonia versus worsening colitis. Considered obstruction though could be low-grade given that he is having some bowel movements. Will obtain blood work EKG COVID swab chest x-ray and CT scan.
Blood work notable for leukocytosis. Chest x-ray per my interpretation with pleural effusion though no obvious pneumonia. CT scan does show right-sided colitis. Will treat with Zosyn. Discussed with hospitalist who accepted patient to their
service.
Discharge Plan
Departure
Patient Disposition: Admit
Date of Disposition: 11/04/23
Time of Disposition: 19:37
Admit to doctor: Hospitalist,Thania Dozier MD
Presentation/result/management discussed w/ accepting MD/DO: Hospitalist
Patient with high blood pressure during this ER visit?: No
Condition: Fair
Discharge Problem:
Colitis, Acute bronchitis
Interventions
Interventions:
*Risk Screen - Suicide Last Done: 11/04/23 15:45
*General Assessment Last Done: 11/04/23 15:45
*Neglect/Abuse Screening Last Done: 11/04/23 15:45
ED- Fall Risk Assessment Last Done: 11/04/23 21:31
*ED COVID-19 Vaccine History Last Done: 11/04/23 15:45
*Nursing Disposition Last Done: 11/04/23 21:31
ED- Cardiac Assessment Last Done: 11/04/23 16:29
ED- Pulmonary Assessment Last Done: 11/04/23 16:29
Discharge Date and Time
Discharge Date/Time: 11/04/23 21:31
[2023-11-04 16:54] LABS: ALT (SGPT) 16 U/L (0-50); AST (SGOT) 27 U/L (17-59); Albumin 3.4 g/dl (3.5-5.0); Alkaline Phosphatase 116 U/L (38-126); Blood Urea Nitrogen 18 mg/dl (9-20); Calcium 8.7 mg/dl (8.4-10.2); Carbon Dioxide 28 mmol/L (22-30); Chloride 100 mmol/L (98-107); Estimated Creatinine Clearance 91 ml/min; Glucose 122 mg/dl (70-99); Potassium 4.3 mmol/L (3.5-5.1); Sodium 138 mmol/L (135-145); Total Bilirubin 0.9 mg/dl (0.2-1.3); Total Protein 6.3 g/dl (6.3-8.2); eGFR > 60.00
[2023-11-04 18:13] LABS: COVID-19 Antigen Negative (Negative)
[2023-11-04] MEDS: ZOSYN 100 IV (19:13)
--- NOTE | 2023-11-04 19:51 | HPS.HSE ---
Family Physician
-
Family Physician: Sivakumar Patel
Chief Complaint
-
Shortness of breath, abdominal pain, constipation
History of Present Illness
73-year-old male complaining of acute shortness of breath starting at approximately 2 PM this afternoon. He reports feeling short of breath with some abdominal pain and vomited. He reports 2 days of constipation relieved yesterday by enema with
normal bowel movement. He is enema dependent twice daily and cannot defecate unless he uses that. He has been using lactulose and Colace but not MiraLAX that was recommended on last admission. He denies fever, chills, chest pain, palpitations,
headache, diarrhea, urinary symptoms. He reports he spoke with farrowing worker yesterday who advised for a thoracentesis due to right pleural effusion. He is currently 98% on room air with no current shortness of breath at bedside.
He had a recent admission 10/12/2023 - 10/29/2023 for ischemic colitis/postop ileus/constipation/leukocytosis was given laxatives and milk of magnesia with bowel movement after 1 week. He is status post ex lap with hemicolectomy and primary
anastomosis on 10/14/23. He also had episode of V. tach 42nd run on 10/22/2023 with ICD placement on 10/26/2023, heart failure exacerbation resolved with Lasix 40 mg twice daily and fluid restrict.
Past medical history CAD status post PCI/CABG, V. tach 2023, ICD placement 10/26/2023, heart failure, bioprosthetic MVR, PAD status post right femoral endarterectomy and right SFA with stent, TIA, carotid stenosis status post left CEA, paroxysmal
A-fib on Eliquis, DM2 with diabetic neuropathy, HTN, pulm HTN, prostate CA, former smoker, ischemic colitis status post right colectomy on 10/13, chronic opioid-induced constipation, postop anemia
Medical History
Past Medical History
Past Medical History: Reports Other
Additional Past Medical History:
CAD status post PCI/CABG,
V. tach 2023, ICD placement 10/26/2023
heart failure, bioprosthetic MVR
PAD status post right femoral endarterectomy and right SFA with stent
TIA, carotid stenosis status post left CEA
paroxysmal A-fib on Eliquis
DM2 with diabetic neuropathy
HTN, pulm HTN
prostate CA
former smoker
ischemic colitis status post right colectomy on 10/13
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
postop anemia
Pericarditis
Past Surgical History: Reports Other
Additional Past Surgical History:
Ischemic colitis status post right hemicolectomy 10/22/2023
Coronary artery bypass graft
Mitral valve replacement
Left shoulder surgery
Prostatectomy
Amputation of left great toe
Social History
Tobacco: Non-smoker
Alcohol: None
Drug: None
Personal:
Living: With Family
Employment: Retired
Family History
Family History: Not pertinent
Allergies / Home Medications
Allergies reflects when Allergies were last updated in [facility].
Home Medications with original date entered in [facility]
Allergy/Medication List:
Allergies
Allergy/AdvReac Type Severity Reaction Status Date / Time
fish derived Allergy SEAFOOD-HIV Verified 10/12/23 12:10
ES
Home Medications
atorvastatin 80 mg tablet 80 mg PO QPM High cholesterol 01/19/20
gabapentin 600 mg tablet 600 mg PO TID Pain 12/19/22
zolpidem 5 mg tablet 5 mg PO HSPRN PRN sleep 12/19/22
acetaminophen 325 mg tablet 650 mg (2 x 325 mg) PO Q4HPRN PRN mild pain/BRAVO/temp> 100.4F #100 tabs 12/22/22
oxycodone 10 mg tablet 10 mg PO Q6H PRN Pain 02/26/23
glipizide 2.5 mg tablet, extended release 24 hr 2.5 mg PO QPM Diabetes #0 tabs 02/27/23
metformin 1,000 mg tablet 1,000 mg PO BID Diabetes #0 tabs 02/27/23
morphine 15 mg tablet,extended release 15 mg PO Q8H Pain 07/18/23
apixaban 5 mg tablet (Eliquis) 5 mg PO BID Blood clot prevention/tx #60 tabs 07/23/23
docusate sodium 100 mg capsule 100 mg PO BID Constipation #0 caps 07/23/23
furosemide 40 mg tablet 40 mg PO BID AT 0800,1600 Fluid retention/Swelling #60 tabs 07/23/23
midodrine 5 mg tablet 5 mg PO TIDPRN PRN dizziness #10 tabs 07/23/23
polyethylene glycol 3350 17 gram oral powder packet (HealthyLax) 17 g PO DAILY constipation #0 ea 07/23/23
lactulose 20 gram/30 mL oral solution 20 g (30 mL) PO DAILY #1,200 mL 10/29/23
metoprolol succinate 25 mg tablet,extended release 24 hr 37.5 mg (1.5 x 25 mg) PO BID #90 tabs 10/29/23
Review of Systems
-
History Source: Patient and Family ( at bedside)
A 12 point ROS was completed and negative except as noted: Yes
Constitutional: Denies Fever or Chills
EENT: Denies Sore Throat or Runny Nose
Respiratory: Reports Trouble Breathing; Denies Cough
Cardiac: Denies Chest Pain, Diaphoresis, Palpitations or Syncope
Abdomen/GI: Reports Abdominal Pain (Right-sided), Nausea, Vomiting and Constipated (2 days had normal bowel movement yesterday via enema 11/03/2023)
: Denies Dysuria, Frequency, Flank Pain, Incontinence or Difficulty Voiding
Musculoskeletal: Denies Joint Pain or Edema
Skin: Denies Itching or Rash
Neurological: Denies Dizzy, Headache or Weakness
Endocrine: Reports No Symptoms
Hematologic/Lymphatic: Reports No Symptoms
Psych: Reports Calm
Physical Exam
Vital Signs
Vital Signs
Temp Pulse Resp BP Pulse Ox
97.6 F 73 15 130/60 98
11/04/23 15:41 11/04/23 18:45 11/04/23 18:45 11/04/23 18:00 11/04/23 18:45
Physical Exam
General: Conversant; No Fever or Chills
HEENT: NormoCephalic, Anicteric, Moist mucous membranes, PERRLA, [place] Conjunctivae and No Ptosis
Respiratory: Clear and Other (Slight diminished right lung); No Wheezes
Cardiac: S1/S2 and Regular Rhythm; No Murmur, Rub, Gallop or Peripheral Edema
Breast: Deferred by me
GI: Soft, Non Distended, Normal Bowel Sounds, Tender (Right lower abdomen) and No Hepatosplenomegaly
Rectal: Deferred by Provider
Genito-urinary: Deferred by me
Musculoskeletal: No Clubbing, No Cyanosis and No Edema
Skin: Warm; No Rash
Neuro: AO x 3, No Motor Deficits, Nonfocal/grossly intact, Cranial Nerves Intact and No Sensory Deficits; No Slurred Speech, Facial Droop or Tremors
Psych: Calm
Laboratory Results
-
11/04/23 15:50
11/04/23 16:32
Laboratory Results
Total Bilirubin 0.9 mg/dl (0.2-1.3) 11/04/23 16:32
AST 27 U/L (17-59) 11/04/23 16:32
ALT 16 U/L (0-50) 11/04/23 16:32
Alkaline Phosphatase 116 U/L (38-126) 11/04/23 16:32
Impression/Plan
-
Impression/plan:
Admit to telemetry
#Small/moderate right pleural effusion
#Chronic right pleural effusion/Bronchiolitis left lower lobe
-98% RA, COVID-negative
-Consult pulmonary patient follows with Dr. moody
-Ultrasound chest for fluid volume status might need possible thoracentesis
CXR:
small right pleural effusion airspace opacities/infectious/inflammatory bronchiolitis overall improved from prior
#Right sided colitis
#Colitis, ischemic (as per pathology) 10/12/23 s/p ex lap with hemicolectomy and primary anastomosis on 10/13 with persistent leukocytosis
#Post OP ileus-resolved with laxatives and MOM
#History of Constipation requiring enemas twice weekly-times several years
-Had normal bowel movement yesterday after enema 11/03/2023
-IV Zosyn
-Clear liquid diet
-Colorectal consult
HOLD BOWEL REGIMEN per DR ROBLEDO
CT abdomen pelvis with IV contrast:
1. Severe uncomplicated right-sided colitis likely infectious/inflammatory new from prior
2. Small to moderate right pleural effusion
3. Infectious/inflammatory bronchiolitis throughout the left lower lobe
#Chronic opioid-induced constipation
Last bowel movement 11/03/2023 normal per patient
-Prior MiraLAX 17 g daily, lactulose 20 g daily, Colace 100 mg twice daily this was resumed on 10/25/2023 after colorectal clearance
HOLD BOWEL REGIMEN per DR ROBLEDO
#Chronic persistent leukocytosis
WBC 18.2 > 14 on 10/29/2023
#Ventricular Tachycardia- around 40sec run on 10/22/23
ICD placed on 10/26/23
-DCA cardiology
Echo: Bioprosthetic MV disfunction noted on Echo might need GLADIS/cath in future
Severely increased RV pressures - can be 2/2 MV dysfunction
#Chronic HFrEF
#Recovered EF as of July 2023
I/O, daily weights
-Continue Lasix 40 mg twice daily
#Anemia of chronic disease exacerbated by acute loss because of the surgery and LILIANA
IV iron given recent admission
1 unit of PRBCs transfused on October 29, 2023 with good improvement in Hgb
-Hgb stable 10.5
#Paroxysmal Afib
-Continue Eliquis 5 mg twice daily, metoprolol succinate 37.5 mg twice daily
#CAD sp CABG and failed PCI
#Bioprosthetic MVR
-Continue metoprolol succinate 37.5 mg twice daily, atorvastatin 80 mg every afternoon
#Pulmonary HTN
#HLD
-Continue atorvastatin 80 mg every afternoon
#PAD s/p stenting
#Orthostatic hypotension hx
BP 130/60
#DM type 2 with neuropathy
Accu-Cheks with insulin SS< dm diet
-Hold oral hypoglycemics
#Cholelithiasis without cholecystitis
Asymptomatic
#Intermittent hypercarbia, most likely MAGY hx recent admission
#Emphysematous changes on CT
#Mediastinal and perihilar lymphadenopathy
-outpatient sleep study
-pulmonology consult: WIll also need repeated chest CT in 3-6months
DVT prophylaxis
Continue DIRECTOR OF RECRUITMENT AND ADMISSIONS Eliquis
Full code
--- NOTE | 2023-11-04 19:59 | W.PN.UPDATE ---
Update Note
Progress Note Update
This is an addendum to H&P written by CURRICULUM AND INSTRUCTION SPECIALIST Rosario Beasley
I saw and examined the patient.
The CURRICULUM AND INSTRUCTION SPECIALIST's note was reviewed and I agree with the note.
Comment:
Mr. Herrera Angel is a 73 yo man with hx CAD s/p PCI and CABG, bioprosthetic MVR, hx cardiomyopathy with improved EF, hx TIA, left carotid stenosis s/p CEA 03/07, PAD s/p right SFA and popliteal KEY RINGER and stent 11/02, paroxysmal afib on Eliquis, HTN,
COPD, DM2, recent admission 10/11-10/28 for ischemic colitis s/p right-sided colectomy on 10/13 presents to the ER with shortness of breath and vomiting. Last hospital course c/b post-op ileus VT s/p AICD on 10/25.
Triage VS: T 97.6, P 80, RR 14, BP 121/66, SpO2 91%
On exam patient is in no acute distress. Abdomen with right lower quadrant tenderness, no rebound/guarding. No LE swelling.
LABS: WBC 18.2, Hg 10.7, PLT 240, Na 138, K+ 4.3, Cl 100, CO2 28, BUN 18 Cr 0.8, Glucose 122, liver enzymes WNL
CXR
IMPRESSION:
Small right pleural effusion with bibasilar interstitial and airspace opacities suggestive of infectious/inflammatory bronchiolitis, overall slightly improved from prior.
ABDOMEN/PELVIS CT
IMPRESSION:
1. Severe uncomplicated right-sided colitis likely infectious/inflammatory etiology, new from prior.
2. Small to moderate right pleural effusion.
3. Infectious/inflammatory bronchiolitis throughout the left lower lobe.
Partial right colectomy change redemonstrated. Severe circumferential wall thickening of the residual right colon extending to the mid transverse colon, with surrounding inflammatory change, new from prior. The bowel is without evidence of
obstruction, perforation or abscess.
MAR: IV Zosyn
Right-Sided Colitis
-s/p IV Zosyn in ER, will continue
-clear liquid diet
-Colorectal Surgery consult
Right pleural effusion
-patient with small effusion on CXR, will obtain US, patient was due for thora
-pulm consult
Hx HF with recovered EF
Hx Flash pulmonary edema
-continue KEY RINGER oral lasix
Chronic pain and opiate dependence
-continue home regimen
remainder of plan per H&P
76 minutes spent on patient care
[2023-11-04] MEDS: ZOFRAN 4 MG IV (21:43)
[2023-11-04 21:46] LABS: Glucose - Point of Care 212 mg/dl (70-99)
[2023-11-04] MEDS: MS CONTIN (EXTENDED RELEASE) 15 MG PO (21:59)
[2023-11-04] MEDS: NEURONTIN 600 MG PO (21:59)
[2023-11-05] VITALS (10 sets, daily range): BP systolic 69–130; BP diastolic 45–69; PULSE 70–72; O2SAT 94; BMI 20.8
[2023-11-05] MEDS: ZOSYN 100 IV ×4 (01:15→20:17)
[2023-11-05] MEDS: MS CONTIN (EXTENDED RELEASE) 15 MG PO ×3 (05:33→21:52)
[2023-11-05 06:51] LABS: % Basophils 0.5 % (0-2); % Immature Granulocytes 0.8 % (0-0.5); % Neutrophils 81.7 % (42.2-75.2); Absolute Basophils 0.1 10^3/uL (0-0.2); Absolute Eosinophils 0.2 10^3/uL (0-0.7); Absolute Immature Granulocytes 0.1 10^3/uL (0-0.05); Absolute Lymphocytes 1.3 10^3/uL (1.2-3.4); Absolute Monocytes 1.3 10^3/uL (0.1-0.6); Absolute Neutrophils 13.6 10^3/uL (1.4-6.5); Hematocrit 28.2 % (39.0-52.0); Hemoglobin 9.3 g/dL (13.0-18.0); Mean Corpuscular Hgb 27.5 pg (27.0-31.0); Mean Corpuscular Volume 83.4 fL (80.0-94.0); Mean Platelet Volume 10.4 fL (7.4-10.4); Nucleated Red Blood Cells % 0 % (-); Platelet Count 209 10^3/uL (130-400); Red Blood Cell Count 3.38 10^6/uL (4.70-6.10); Red Cell Dist. Width 16.6 % (11.5-14.5); White Blood Cell Count 16.7 10^3/uL (4.8-10.8)
[2023-11-05 07:13] LABS: ALT (SGPT) 13 U/L (0-50); AST (SGOT) 22 U/L (17-59); Albumin 3.1 g/dl (3.5-5.0); Alkaline Phosphatase 99 U/L (38-126); Blood Urea Nitrogen 18 mg/dl (9-20); Calcium 8.5 mg/dl (8.4-10.2); Carbon Dioxide 28 mmol/L (22-30); Chloride 98 mmol/L (98-107); Estimated Creatinine Clearance 77 ml/min; Glucose 108 mg/dl (70-99); Potassium 4.6 mmol/L (3.5-5.1); Sodium 136 mmol/L (135-145); Total Protein 5.8 g/dl (6.3-8.2); eGFR > 60.00
--- NOTE | 2023-11-05 07:24 | W.PN.HOSP.TC ---
Today's Communication/Plan
-
bowel rest
diet as per CRS
hep gtt
IR eval thoracentesis
abx
Assessment / Plan
Assessment / Plan
Physical Exam
General: Conversant; No Fever or Chills
HEENT: NormoCephalic, Anicteric, Moist mucous membranes, PERRLA, [place] Conjunctivae and No Ptosis
Respiratory: Clear and Other (Slight diminished right lung); No Wheezes
Cardiac: S1/S2 and Regular Rhythm; No Murmur, Rub, Gallop or Peripheral Edema
GI: Soft, Non Distended, Normal Bowel Sounds, Tender (Right lower abdomen) and No Hepatosplenomegaly
Musculoskeletal: No Clubbing, No Cyanosis and No Edema
Skin: Warm; No Rash
Neuro: AO x 3, No Motor Deficits, Nonfocal/grossly intact, Cranial Nerves Intact and No Sensory Deficits; No Slurred Speech, Facial Droop or Tremors
Psych: Calm
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
admission 10/11-10/28 for ischemic colitis s/p right-sided colectomy on 10/13 presents to the ER with shortness of breath and vomiting. Last hospital course c/b post-op ileus VT s/p AICD on 10/25.
#Small/moderate right pleural effusion
#Chronic right pleural effusion/Bronchiolitis left lower lobe
-98% RA, COVID-negative
-Consult pulmonary patient follows with Dr. moody
-Ultrasound chest for fluid volume status might need possible thoracentesis
-CXR: small right pleural effusion airspace opacities/infectious/inflammatory bronchiolitis overall improved from prior
-Pulm IR eval appreciated
#Right sided colitis
#Colitis, ischemic (as per pathology) 10/12/23 s/p ex lap with hemicolectomy and primary anastomosis on 10/13 with persistent leukocytosis
#Post OP ileus-resolved with laxatives and MOM
#History of Constipation requiring enemas twice weekly-times several years
-Had normal bowel movement yesterday after enema 11/03/2023
-IV Zosyn
-diet as per CRS
-Colorectal consult
CT abdomen pelvis with IV contrast:
1. Severe uncomplicated right-sided colitis likely infectious/inflammatory new from prior
2. Small to moderate right pleural effusion
3. Infectious/inflammatory bronchiolitis throughout the left lower lobe
#Chronic opioid-induced constipation
Last bowel movement 11/03/2023 normal per patient
-holding bowel regimen
#Chronic persistent leukocytosis
WBC 18.2 > 14 on 10/29/2023
#Ventricular Tachycardia- around 40sec run on 10/22/23
ICD placed on 10/26/23
-DCA cardiology
Echo: Bioprosthetic MV disfunction noted on Echo might need GLADIS/cath in future
Severely increased RV pressures - can be 2/2 MV dysfunction
#Chronic HFrEF
#Recovered EF as of July 2023
I/O, daily weights
-Continue Lasix 40 mg twice daily
#Anemia of chronic disease exacerbated by acute loss because of the surgery and LILIANA
IV iron given recent admission
1 unit of PRBCs transfused on October 29, 2023 with good improvement in Hgb
-H&H stable
#Paroxysmal Afib
-Eliquis converted to hep gtt, metoprolol succinate 37.5 mg twice daily
#CAD sp CABG and failed PCI
#Bioprosthetic MVR
-Continue metoprolol succinate 37.5 mg twice daily, atorvastatin 80 mg every afternoon
#Pulmonary HTN
#HLD
-Continue atorvastatin 80 mg every afternoon
#PAD s/p stenting
#Orthostatic hypotension hx
BP 130/60
#DM type 2 with neuropathy
Accu-Cheks with insulin SS< dm diet
-Hold oral hypoglycemics
#Cholelithiasis without cholecystitis
Asymptomatic
#Intermittent hypercarbia, most likely MAGY hx recent admission
#Emphysematous changes on CT
#Mediastinal and perihilar lymphadenopathy
-outpatient sleep study
-pulmonology consult: WIll also need repeated chest CT in 3-6months
DVT prophylaxis
Continue CHIEF SCIENCE OFFICER Eliquis
Full code
I spent a total of 58 minutes with the patient or on the floor. More than 50% of this time involved counseling and coordination of care.
Anticipated Discharge: > 48 hours
Subjective/Interval History
-
Date of Service: November 05, 2023
no acute distress appears comfortable at this time.
Objective Data
-
Labs:
Laboratory Results
11/05/23
05:13
WBC 16.7 H
Hgb 9.3 L
Hct 28.2 L
Plt Count 209
Sodium 136
Potassium 4.6
Chloride 98
Carbon Dioxide 28
BUN 18
Creatinine 0.9
Glucose 108 H
Calcium 8.5
Total Bilirubin 1.0
AST 22
ALT 13
Alkaline Phosphatase 99
Vital Signs:
Vital Signs
Temp Pulse Resp BP Pulse Ox
98.6 F 80 18 129/69 98
11/05/23 03:36 11/05/23 03:36 11/05/23 03:36 11/05/23 03:36 11/05/23 03:36
I&O
11/04/23 11/05/23 11/06/23
06:59 06:59 06:59
Intake Total 100 / 100
Output Total 150 / 150
Balance -50 / -50
[2023-11-05 08:21] LABS: Glucose - Point of Care 222 mg/dl (70-99)
[2023-11-05] MEDS: ELIQUIS 5 MG PO (08:26)
[2023-11-05] MEDS: ROXICODONE 10 MG PO (08:26)
[2023-11-05] MEDS: NEURONTIN 600 MG PO ×3 (08:26→21:52)
[2023-11-05] MEDS: LASIX 40 MG PO ×2 (08:26→15:27)
[2023-11-05] MEDS: TOPROL XL 37.5 MG PO ×2 (08:27→20:18)
--- NOTE | 2023-11-05 08:50 | VNURNOTE ---
Chart reviewed. Patient is current with [facility], recently resumed care with [facility] 10/29. Will continue to follow hospital course and watch for DC plans.
[2023-11-05] MEDS: GLUCOPHAGE 1000 MG PO ×2 (09:04→17:33)
[2023-11-05 09:34] LABS: NT-proBNP 4200 pg/ml
--- NOTE | 2023-11-05 09:58 | PTCARENOTE ---
pt aaox3. states 10 pain in lower abd. pain med given as ordered. pt refusing sub q insulin. requesting metformin home dose. notified Dr zhu metformin ordered.
--- NOTE | 2023-11-05 10:10 | CON.PUL ---
Consultation
Consultation Request
Date/Time Consultation Requested: 11/05/2023-7:30 AM
Date/Time Consultation Performed: 11/05/2023-8 AM
Requesting Provider: Hospitalist
Performing Provider: Dr. Ham
Reason for Consultation: Pleural effusion
Medical History
-
Chief Complaint: Shortness of breath
History of Present Illness:
73-year-old male former smoker with a history of CAD/CABG and ventricular tachycardia status post ICD placement 10/26/2023 in addition to heart failure, mitral valve replacement, PAD, diabetes and ischemic colitis status post right colectomy
presented with increasing shortness of breath and noted to have a right pleural effusion-pulmonary consulted for right pleural effusion 11/05/2023. He states that his shortness of breath has improved. He has been on oxygen and quite sedentary. He
denies any chest pain, chest tightness, pleurisy, productive cough, mopped assist, abdominal pain, nausea, increased leg swelling or focal weakness. He states that he had 3 L of pleural fluid removed bilaterally after his heart operation many years
ago. He has not had a pleural effusion since that time.
Past Medical History
Past Medical History: None (CAD/CABG/PCI. V. tach 10/2023 status post ICD placement 10/26/2023. CHF reduced EF. Bioprosthetic MVR. PAD status post right femoral endarterectomy and right SFA stent. TIA. Left CEA. PAF on Eliquis. Diabetes.
Diabetic neuropathy. Hypertension. Pulm hypertension. Prostate cancer.)
Past Surgical History: None (Ischemic colitis status post right colectomy 10/14/2023. Chronic opioid-induced constipation. CABG. MVR. Left shoulder surgery. Prostatectomy. Amputation left great toe.)
Social History
Tobacco: Former Smoker ([id number] quit 20 years ago)
Alcohol: None
Drug: None
Personal:
Living: With Family
Occupational Exposures: No known asbestos exposure
Environmental Exposures: No known tuberculosis exposure
Family History
Family History: Reviewed & Not Pertinent
Allergies / Home Medications
Allergies
Allergy/AdvReac Type Severity Reaction Status Date / Time
fish derived Allergy SEAFOOD-HIV Verified 10/12/23 12:10
ES
Home Medications
�Medication �Instructions �Recorded �Confirmed �Last Taken �Type
atorvastatin 80 mg tablet 80 mg PO QPM High cholesterol 01/19/20 11/04/23 11/03/23 History
gabapentin 600 mg tablet 600 mg PO TID Pain 12/19/22 11/04/23 11/04/23 History
zolpidem 5 mg tablet 5 mg PO HSPRN PRN sleep 12/19/22 11/04/23 05/08/23 21:00 History
acetaminophen 325 mg tablet 650 mg (2 x 325 mg) PO Q4HPRN PRN 12/22/22 11/04/23 10/10/23 Rx
mild pain/BRAVO/temp> 100.4F #100 tabs
oxycodone 10 mg tablet 10 mg PO Q6H PRN Pain 02/26/23 11/04/23 10/12/23 History
glipizide 2.5 mg tablet, extended 2.5 mg PO QPM Diabetes #0 tabs 02/27/23 11/04/23 11/03/23 Rx
release 24 hr
metformin 1,000 mg tablet 1,000 mg PO BID Diabetes #0 tabs 02/27/23 11/04/23 11/04/23 Rx
morphine 15 mg tablet,extended 15 mg PO Q8H Pain 07/18/23 11/04/23 11/04/23 History
release
apixaban 5 mg tablet (Eliquis) 5 mg PO BID Blood clot 07/23/23 11/04/23 11/04/23 Rx
prevention/tx #60 tabs
docusate sodium 100 mg capsule 100 mg PO BID Constipation #0 caps 07/23/23 11/04/23 11/04/23 Rx
furosemide 40 mg tablet 40 mg PO BID AT 0800,1600 Fluid 07/23/23 11/04/23 11/04/23 Rx
retention/Swelling #60 tabs
midodrine 5 mg tablet 5 mg PO TIDPRN PRN dizziness #10 07/23/23 11/04/23 Unknown Rx
tabs
polyethylene glycol 3350 17 gram 17 g PO DAILY constipation #0 ea 07/23/23 11/04/23 11/04/23 Rx
oral powder packet (HealthyLax)
lactulose 20 gram/30 mL oral 20 g (30 mL) PO DAILY #1,200 mL 10/29/23 11/04/23 11/04/23 Rx
solution
metoprolol succinate 25 mg 37.5 mg (1.5 x 25 mg) PO BID #90 10/29/23 11/04/23 11/04/23 Rx
tablet,extended release 24 hr tabs
Review of Systems
-
Unable to Obtain full review of systems at this time due to: Other (Per HPI)
Vitals / Labs / Diagnostic Testing
Vital Signs
Temp Pulse Resp BP Pulse Ox
98.1 F 76 17 123/54 96
11/05/23 07:00 11/05/23 08:27 11/05/23 07:00 11/05/23 08:27 11/05/23 07:00
Lab Data
11/05/23 05:13
11/05/23 05:13
Diagnostic Testing:
Physical Exam
-
Exam:
Well-nourished and well-developed in no apparent distress
HEENT-atraumatic, normocephalic
Neck-supple, no JVD, no bruit
Heart-regular rate and rhythm-no murmurs, rubs or gallops
Chest with diminished breath sounds especially at the right base and no crackles or wheezing, mildly prolonged expiratory time
Abdomen-soft, nontender, nondistended, no hepatosplenomegaly
Extremities-no cyanosis, clubbing, edema and good peripheral pulses
Integument-intact, no rashes, lesions or ecchymosis
Neurology-alert and oriented, nonfocal motor and sensory exam
Assessment
-
73-year-old male former smoker with a history of CAD/CABG and ventricular tachycardia status post ICD placement 10/26/2023 in addition to heart failure, mitral valve replacement, PAD, diabetes and ischemic colitis status post right colectomy
presented with increasing shortness of breath and noted to have a right pleural effusion-pulmonary consulted for right pleural effusion 11/05/2023.
Right pleural effusion
Shortness of breath
Leukocytosis
[id number]-qczqdvxxjq 9.3
Mild hyperglycemia
Right-sided colitis
Conditions present prior to admission:
CAD/CABG/PCI.
V. tach 10/2023 status post ICD placement 10/26/2023.
CHF reduced EF-was 15% now 68%
Bioprosthetic MVR.
[id number]-hadw-year smoker quit 2007
PAD status post right femoral endarterectomy and right SFA stent.
TIA.
Left CEA.
PAF on Eliquis.
Diabetes.
Diabetic neuropathy.
Hypertension.
Pulm hypertension.
Prostate cancer.
Bladder cancer
Chronic opioid-induced constipation.
Marijuana use for pain
Acute colitis status post right colectomy 10/14/2023 CABG. MVR-bioprosthetic 02/2014. Left CEA 2022. Left shoulder surgery. Prostatectomy. Amputation left great toe.
DNR in the past
Plan
Mild respiratory decompensation may be related to small to moderate right pleural effusion of unclear etiology-small to my eye on chest x-ray and a small to moderate on CT
Supplemental oxygen as needed
Aspiration precautions
Incentive spirometry
Nebulizers if needed-currently not bronchospastic
Reviewed previous hospitalization and pulmonary's recommendations for follow-up
Outpatient pulmonary office arrange for thoracentesis
Patient never followed up in the office
Dr. Ham called interventional radiology 11/05/2023 for diagnostic and mildly therapeutic right-sided thoracentesis
Monitor colitis
Antibiotics initiated-should cover pulmonary infiltrates as well
Colorectal surgical consult
DVT prophylaxis-on Eliquis
Nutrition per GI
Early mobilization
Saw Dr. Pascual during last admission and plan was to have televisit the following week and set up a right-sided thoracentesis-he did not wmffau-[id number]-nltpssznpqxoo was attempted to be arranged as an outpatient-recommend follow-up after this
hospitalization
Diagnostic data:
Chest x-ray 03/03/2023: No active disease
Chest x-ray 11/04/2023-small right pleural effusion
CT abdomen and pelvis 11/04/2023-severe uncomplicated right-sided colitis, small to moderate right pleural effusion, infectious inflammatory bronchiolitis throughout left lung
Ultrasound chest 11/04/2023-moderate pleural effusion
Echo 10/23/2023: Normal biventricular function, EF 68%, mitral valve gradients have worsened, moderate MR, PA pressure 78, worsened
Echocardiogram 09/01/2022: EF 50%, bioprosthetic mitral valve, aortic sclerosis, normal right heart, cannot measure right heart pressures
Cardiac catheterization 01/23/2020-left main and three-vessel CAD occlusion, patent sequential SVG to diagonal OM PDA and collaterals to LAD, known occluded QUIÑONES to LAD, anterolateral wall hypokinesis
Data Reviewed
-
EKG: Report reviewed by me
Radiology: Image personally visualized and interpreted and Report reviewed by me
CT Scan: Image personally visualized and interpreted and Report reviewed by me
Ultrasound: Report reviewed by me
Medical Tests (Nuc Med, Echo etc): Report reviewed by me
Labs: Labs reviewed by me
Old Records: Reviewed
Total Time Spent with Patient (in minutes): 55
[2023-11-05 12:00] LABS: Glucose - Point of Care 139 mg/dl (70-99)
--- NOTE | 2023-11-05 12:49 | PTCARENOTE ---
pt ambulated from bed to doorway with min one person assist. pt became sob and hot. hr max 115 seen on monitor. returned to bed within 3 min pt returned to comfortable breathing.
--- NOTE | 2023-11-05 13:59 | CON.CRS ---
Consultation
-
Date/Time Consultation Requested: 11/04/2023
Date/Time Consultation Performed: 11/05/2023
Requesting Provider: Rosario Armstrong
Performing Provider: Eyal Kerr MD
Reason for Consultation: colitis
Medical History
-
Chief Complaint: abdominal pain
History of Present Illness:
73-year-old male, presents to the emergency department earlier this morning due to abdominal pain. The patient was recently admitted from 10/12/2023 until 10/29/2023. During that admission he was diagnosed with ascending colitis and underwent a right
colectomy by Dr. Eyal Kerr on 10/13/2023. Pathology was consistent with an unremarkable terminal ileum and benign colon with nonspecific ulceration, congestion and degeneration. Findings may reflect ischemic change with early necrosis.
He has been home for about the past week but now returns due to shortness of breath. He states that this quickly yesterday afternoon. He also states he has had abdominal pain since his discharge. He states he is unable to have a bowel movement
unless he has an enema. He has diarrhea when he has an enema. Currently he states he has abdominal pain right now. He has not noticed any blood in his stool. His last bowel movement was 2 days ago after he had an enema. He generally feels
constipated. He has been vomiting at home and the last time he vomited was last night. He feels mildly distended. On admission to the ER his WBC is 16.7. He remained afebrile. CT of the abdomen pelvis shows severe uncomplicated right-sided
colitis likely infectious inflammatory etiology new from prior. Also small to moderate right pleural effusion and infectious/inflammatory bronchiolitis throughout the left lower lobe. We have been consulted for further surgical opinion.
Past Medical History
Past Medical History: Other (CAD s/p CABG/MVR, CHF, A-fib (on Eliquis), PVD (s/p left first toe amp, left CEA), DM, COPD, HTN, HLD, left foot drop, bladder cancer s/p TURBT, prostate cancer s/p prostatectomy)
Social History
Tobacco: Non-Smoker
Alcohol: None
Drug: None
Family History
Family History: Reviewed & Not Pertinent
Allergies / Home Medications
Allergy/AdvReac Type Severity Reaction Status Date / Time
fish derived Allergy SEAFOOD-HIV Verified 10/12/23 12:10
ES
�Medication �Instructions �Recorded �Confirmed �Type
atorvastatin 80 mg tablet 80 mg PO QPM High cholesterol 01/19/20 11/04/23 History
gabapentin 600 mg tablet 600 mg PO TID Pain 12/19/22 11/04/23 History
zolpidem 5 mg tablet 5 mg PO HSPRN PRN sleep 12/19/22 11/04/23 History
acetaminophen 325 mg tablet 650 mg (2 x 325 mg) PO Q4HPRN PRN 12/22/22 11/04/23 Rx
mild pain/BRAVO/temp> 100.4F #100 tabs
oxycodone 10 mg tablet 10 mg PO Q6H PRN Pain 02/26/23 11/04/23 History
glipizide 2.5 mg tablet, extended 2.5 mg PO QPM Diabetes #0 tabs 02/27/23 11/04/23 Rx
release 24 hr
metformin 1,000 mg tablet 1,000 mg PO BID Diabetes #0 tabs 02/27/23 11/04/23 Rx
morphine 15 mg tablet,extended 15 mg PO Q8H Pain 07/18/23 11/04/23 History
release
apixaban 5 mg tablet (Eliquis) 5 mg PO BID Blood clot 07/23/23 11/04/23 Rx
prevention/tx #60 tabs
docusate sodium 100 mg capsule 100 mg PO BID Constipation #0 caps 07/23/23 11/04/23 Rx
furosemide 40 mg tablet 40 mg PO BID AT 0800,1600 Fluid 07/23/23 11/04/23 Rx
retention/Swelling #60 tabs
midodrine 5 mg tablet 5 mg PO TIDPRN PRN dizziness #10 07/23/23 11/04/23 Rx
tabs
polyethylene glycol 3350 17 gram 17 g PO DAILY constipation #0 ea 07/23/23 11/04/23 Rx
oral powder packet (HealthyLax)
lactulose 20 gram/30 mL oral 20 g (30 mL) PO DAILY #1,200 mL 10/29/23 11/04/23 Rx
solution
metoprolol succinate 25 mg 37.5 mg (1.5 x 25 mg) PO BID #90 10/29/23 11/04/23 Rx
tablet,extended release 24 hr tabs
Review of Systems
-
History Source: Patient
All other systems: Negative unless noted
Abdomen/GI: Abdominal Pain, Vomiting, Diarrhea and Constipated
A 10 point review of systems was completed, and was negative except as per HPI.
Physical Exam
Vital Signs
Temp 98.2 F 11/05/23 13:14
Pulse 69 11/05/23 13:14
Resp Rate 16 11/05/23 13:14
Blood pressure 109/53 11/05/23 13:14
SaO2 97 11/05/23 13:14
11/04/23 11/05/23 11/06/23
06:59 06:59 06:59
Actual Weight 73.527 kg
Body Mass Index (BMI) 20.8
Lab Results / Allergies
11/05/23 05:13
11/05/23 05:13
WBC 16.7 10^3/uL (4.8-10.8) H 11/05/23 05:13
Hgb 9.3 g/dL (13.0-18.0) L 11/05/23 05:13
Hct 28.2 % (39.0-52.0) L 11/05/23 05:13
Plt Count 209 10^3/uL (130-400) 11/05/23 05:13
Abs Immat Gran (auto) 0.1 10^3/uL (0-0.05) H 11/05/23 05:13
Neutrophils % 81.7 % (42.2-75.2) H 11/05/23 05:13
Allergy/AdvReac Type Severity Reaction Status Date / Time
fish derived Allergy SEAFOOD-HIV Verified 10/12/23 12:10
ES
Physical Exam
General: Well Developed, Well Nourished and No Apparent Distress
GI: Tender (RLQ/suprapubic ) and Distended (mild)
Skin: Warm and Dry
Neuro: AO x 3
Psych: Calm
Data Reviewed
-
CT Scan: Image Personally Visualized and interpreted, Report Reviewed by me and Discussed with Patient
Labs: Labs Reviewed by me, Discussed with Physician and Discussed with Patient
Old Records: Reviewed
Assessment / Plan
-
Assessment: 73-year-old male with recent right colectomy due to ascending colitis presents to the ER with shortness of breath, abdominal pain, and vomiting, found to have right-sided colitis on CT
Plan:
-No plans for emergent OR at this time
� Would recommend bowel rest with n.p.o. status
-Continue IV antibiotics
-Enemas as needed
-Recommend stopping Eliquis and starting on a heparin drip in case surgery is warranted
-Recommend consult vascular
[2023-11-05 14:55] LABS: Body Fluid pH 7.53
[2023-11-05 15:00] LABS: Body Fluid Mononuclear 74.9 %; Body Fluid Polymorphonuclear 25.1 %; Body Fluid WBC 442 /CUMM
[2023-11-05 15:10] LABS: Body Fluid Second Tech HB
--- NOTE | 2023-11-05 15:19 | CM ---
Met with pt at bedside
Pt reports he lives with his in a 2 story home with 7 steps to enter, 14 steps to 2nd fl
Independent with adl's. Drives occasionally. Ambulates with cane
DME - cane, rolling walker, shower chair
SNF - [facility] in past
- [facility] - current
Has ride at discharge
PCP - Sr Sivakumar Patel
Pharm - [facility]
sponsorship manager will be available for d/c needs
Plan - anticipate home no need when medically ready
[2023-11-05 15:55] LABS: Body Fluid Glucose 143 mg/dl; Body Fluid LDH 102 U/L; Body Fluid Protein < 2.0 g/dl
--- NOTE | 2023-11-05 16:31 | CON.VAS ---
Addendum entered and electronically signed by Stanton Pettit MD 11/05/23 17:02:
Seen and examined with ALEKSANDAR Singh. Agree with findings as noted below. 73-year-old male known to the vascular service with prior left femoral endarterectomy by Dr. Marley, right femoral endarterectomy by Dat, subsequent right lower extremity
endovascular procedure by Dat. Subsequent endovascular procedure by Cramer right lower extremity. Subsequent left carotid endarterectomy by Cramer. Now 3 weeks post right colectomy due to colitis, unclear etiology possible ischemic. Patient
notes that he had done reasonably postoperatively and in fact his pain had completely abated. However new onset of pain in the abdomen that prompted him to return. He notes intermittent pain currently in his abdomen. Not constant. He notes it is
not related to eating at all. No postprandial type symptoms. On exam/he is awake and alert. He is in no acute distress currently. His abdomen is soft, nondistended, nontender currently.
CT scan reviewed. He has extensive circumferential atherosclerosis throughout his aorta in the abdomen as well as his iliac vessels. He has a patent right iliac stent. Left iliac with circumferential calcification in the common and external iliac
arteries. He may have mild to moderate celiac artery origin stenosis. His celiac branches are severely circumferentially calcified. His SMA has heavy bulky plaque at the origin which appears to be nearly occlusive or fully occlusive. There may
be a small trickle or channel of flow that appears on some of the images but cannot say for sure. The extensive plaque continues along the posterior aspect of the SMA well into the more mid to distal SMA.
Plan/possible recurrent colitis. I do not know that his symptoms are due to his chronic mesenteric stenosis. He has no symptoms of chronic mesenteric ischemia. His plaque burden is all chronic. And he seems to have healed his recent surgery (his
pain had completely abated postoperatively). In addition, there is no simple revascularization here. His vessels are porcelain/leadpipe like in nature. I do not know that an endovascular solution would be feasible (I do not know that there is a
channel of flow through the SMA, and in addition such bulky plaque at the origin of the SMA I do not know that a stent would be able to maintain patency). Open surgical revascularization is almost prohibitive (add would be retrograde stenting) due
to severe scar tissue from recent surgery but more importantly secondary to no great inflow vessel because of circumferential calcified plaque throughout aorta and iliac arteries. Again I am not clear his symptoms are related to his blood flow as
well. He has intermittent symptoms of pain. He has findings of colitis on his CT scan. Would recommend continued management as such. If no relief or improvement, then we will consider performing angiogram to see if there is a flow channel in the
SMA to perform an endovascular intervention.
Original Note:
Consultation
Consultation Request
Performing Provider: Wilver
Reason for Consultation: Abd pain
Medical History
-
Chief Complaint: Abdominal pain
History of Present Illness:
73 yo male with PMH CAD, CHF, Afib, PAD, CEA, DM, HTN, HLD presented to the ER yesterday for abdominal pain. Pt recently admitted for colitis and right colectomy with Dr Kerr on 10/13/23, discharged in 10/29/23. Pt returned with SOB and abdominal
pain. Pain has persisted since last admission. He states the pain is constant and about a 7/10. Denies pain related to eating or after eating.
CTA evidence of severe SMA stenosis with near occlusive bulky plaque, diffuse plaque throughout aorta and iliac arteries.
Vascular consult for CTA findings of severe SMA stenosis. Pt well known to our service for PAD, LE stenting, CEA.
Pt seen at bedside this afternoon with Dr Pettit. Pt comfortable in bed at this time, pain is currently manageable.
Past Medical History
Past Medical History: Other (CAD s/p CABG/MVR, CHF, A-fib (on Eliquis), PVD (s/p left first toe amp, left CEA), DM, COPD, HTN, HLD, left foot drop, bladder cancer s/p TURBT, prostate cancer s/p prostatectomy)
Past Surgical History: Bowel Resection and Other (CEA, colectomy, lower extremity stenting, toe amputation )
Social History
Tobacco: Former Smoker
Drug: None
Family History
Family History: Reviewed & Not Pertinent
Allergies / Home Medications
Allergy/AdvReac Type Severity Reaction Status Date / Time
fish derived Allergy SEAFOOD-HIV Verified 10/12/23 12:10
ES
�Medication �Instructions �Recorded �Confirmed �Type
atorvastatin 80 mg tablet 80 mg PO QPM High cholesterol 01/19/20 11/04/23 History
gabapentin 600 mg tablet 600 mg PO TID Pain 12/19/22 11/04/23 History
zolpidem 5 mg tablet 5 mg PO HSPRN PRN sleep 12/19/22 11/04/23 History
acetaminophen 325 mg tablet 650 mg (2 x 325 mg) PO Q4HPRN PRN 12/22/22 11/04/23 Rx
mild pain/BRAVO/temp> 100.4F #100 tabs
oxycodone 10 mg tablet 10 mg PO Q6H PRN Pain 02/26/23 11/04/23 History
glipizide 2.5 mg tablet, extended 2.5 mg PO QPM Diabetes #0 tabs 02/27/23 11/04/23 Rx
release 24 hr
metformin 1,000 mg tablet 1,000 mg PO BID Diabetes #0 tabs 02/27/23 11/04/23 Rx
morphine 15 mg tablet,extended 15 mg PO Q8H Pain 07/18/23 11/04/23 History
release
apixaban 5 mg tablet (Eliquis) 5 mg PO BID Blood clot 07/23/23 11/04/23 Rx
prevention/tx #60 tabs
docusate sodium 100 mg capsule 100 mg PO BID Constipation #0 caps 07/23/23 11/04/23 Rx
furosemide 40 mg tablet 40 mg PO BID AT 0800,1600 Fluid 07/23/23 11/04/23 Rx
retention/Swelling #60 tabs
midodrine 5 mg tablet 5 mg PO TIDPRN PRN dizziness #10 07/23/23 11/04/23 Rx
tabs
polyethylene glycol 3350 17 gram 17 g PO DAILY constipation #0 ea 07/23/23 11/04/23 Rx
oral powder packet (HealthyLax)
lactulose 20 gram/30 mL oral 20 g (30 mL) PO DAILY #1,200 mL 10/29/23 11/04/23 Rx
solution
metoprolol succinate 25 mg 37.5 mg (1.5 x 25 mg) PO BID #90 10/29/23 11/04/23 Rx
tablet,extended release 24 hr tabs
Review of Systems
-
History Source: Patient
All other systems: Negative unless noted
Constitutional: Reports No Symptoms
EENT: Reports No Symptoms
Respiratory: Reports Trouble Breathing (resolved)
Cardiac: Reports No Symptoms
Vascular: Denies Leg Pain / Claudication
Abdomen/GI: Reports Abdominal Pain, Vomiting, Diarrhea, Constipated and Pain
: Reports No Symptoms
Musculoskeletal: Reports No Symptoms
Skin: Reports No Symptoms
Neurological: Reports No Symptoms
Endocrine: Reports No Symptoms
Physical Exam
Vital Signs
Temp Pulse Resp BP Pulse Ox
98.2 F 70 16 109/58 97
11/05/23 15:00 11/05/23 15:00 11/05/23 15:00 11/05/23 15:27 11/05/23 15:00
Lab Results
11/05/23 05:13
11/05/23 05:13
Ysb-E-Rfjqgwqkrkj Pept 4200 pg/ml 11/05/23 05:13
Physical Exam
General: No Apparent Distress
HEENT: Normocephalic and Atraumatic
Respiratory: Non Labored Respirations
Cardiac: Negative JVD
GI: Soft, Non Distended and Tender (LLE/groin discomfort with palpation)
Musculoskeletal: No Clubbing and No Cyanosis
Skin: Warm
Neuro: Awake, Alert and Oriented
Psych: Calm
Assessment / Plan
-
73 yo male with abdominal pain, CTA evidence of severe SMA stenosis, recent right colectomy
Plan:
- recommend medical management, d/t extensive plaque burden making options limited for endo or open revascularization
- will d/w Dr Pettit
Data Reviewed
-
Labs: Labs Reviewed by me
[2023-11-05 17:04] LABS: Glucose - Point of Care 157 mg/dl (70-99)
[2023-11-05] MEDS: GLUCOTROL XL (EXTENDED RELEASE) 2.5 MG PO (17:33)
[2023-11-05] MEDS: HEPARIN 25000 UNITS/250 ML IV (17:33)
[2023-11-05] MEDS: LIPITOR 80 MG PO (17:33)
[2023-11-05 17:40] LABS: APTT 42.7 Sec (23.4-35.0)
[2023-11-05] MEDS: AMBIEN 5 MG PO (21:52)
[2023-11-06] VITALS (8 sets, daily range): BP systolic 95–128; BP diastolic 40–54; PULSE 68; O2SAT 99; BMI 20.8
[2023-11-06 00:06] LABS: Glucose - Point of Care 120 mg/dl (70-99)
[2023-11-06] MEDS: ZOSYN 100 IV ×2 (02:58→07:53)
[2023-11-06 06:21] LABS: Glucose - Point of Care 114 mg/dl (70-99)
[2023-11-06 07:07] LABS: % Basophils 0.5 % (0-2); % Eosinophils 3.2 % (0-6); % Immature Granulocytes 0.7 % (0-0.5); % Lymphocytes 7.6 % (20.5-51.1); % Monocytes 6.6 % (1.7-9.3); % Neutrophils 81.4 % (42.2-75.2); Absolute Basophils 0.1 10^3/uL (0-0.2); Absolute Eosinophils 0.6 10^3/uL (0-0.7); Absolute Immature Granulocytes 0.1 10^3/uL (0-0.05); Absolute Lymphocytes 1.3 10^3/uL (1.2-3.4); Absolute Monocytes 1.2 10^3/uL (0.1-0.6); Absolute Neutrophils 14.2 10^3/uL (1.4-6.5); Hematocrit 28.8 % (39.0-52.0); Hemoglobin 9.4 g/dL (13.0-18.0); Mean Corp Hgb Conc. 32.6 g/dL (33.0-37.0); Mean Corpuscular Volume 85.7 fL (80.0-94.0); Mean Platelet Volume 10.4 fL (7.4-10.4); Nucleated Red Blood Cells % 0 % (-); Platelet Count 181 10^3/uL (130-400); Red Blood Cell Count 3.36 10^6/uL (4.70-6.10); Red Cell Dist. Width 16.6 % (11.5-14.5); White Blood Cell Count 17.4 10^3/uL (4.8-10.8)
[2023-11-06 07:15] LABS: APTT 110.1 Sec (23.4-35.0)
[2023-11-06] MEDS: MS CONTIN (EXTENDED RELEASE) PO (07:23)
--- NOTE | 2023-11-06 07:39 | W.PN.HOSP.TC ---
Today's Communication/Plan
-
diet as per CRS
cont hep gtt for now in case of need for surgical intervention later
abx as per ID
Assessment / Plan
Assessment / Plan
Physical Exam
General: Conversant; No Fever or Chills
HEENT: NormoCephalic, Anicteric, Moist mucous membranes, PERRLA, [place] Conjunctivae and No Ptosis
Respiratory: Clear and Other (Slight diminished right lung); No Wheezes
Cardiac: S1/S2 and Regular Rhythm; No Murmur, Rub, Gallop or Peripheral Edema
GI: Soft, Non Distended, Normal Bowel Sounds, Tender (Right lower abdomen) and No Hepatosplenomegaly
Musculoskeletal: No Clubbing, No Cyanosis and No Edema
Skin: Warm; No Rash
Neuro: AO x 3, No Motor Deficits, Nonfocal/grossly intact, Cranial Nerves Intact and No Sensory Deficits; No Slurred Speech, Facial Droop or Tremors
Psych: Calm
73 yo man with hx CAD s/p PCI and CABG, bioprosthetic MVR, hx cardiomyopathy with improved EF, hx TIA, left carotid stenosis s/p CEA 03/07, PAD s/p right SFA and popliteal [employer] and stent 11/02, paroxysmal afib on Eliquis, HTN, COPD, DM2, recent
admission 10/11-10/28 for ischemic colitis s/p right-sided colectomy on 10/13 presents to the ER with shortness of breath and vomiting. Last hospital course c/b post-op ileus VT s/p AICD on 10/25.
#Small/moderate right pleural effusion
#Chronic right pleural effusion/Bronchiolitis left lower lobe
-98% RA, COVID-negative
-Consult pulmonary patient follows with Dr. moody
-Ultrasound chest for fluid volume status might need possible thoracentesis
-CXR: small right pleural effusion airspace opacities/infectious/inflammatory bronchiolitis overall improved from prior
-Pulm IR eval appreciated
#Right sided colitis
#Colitis, ischemic (as per pathology) 10/12/23 s/p ex lap with hemicolectomy and primary anastomosis on 10/13 with persistent leukocytosis
#Post OP ileus-resolved with laxatives and MOM
#History of Constipation requiring enemas twice weekly-times several years
#Chronic persistent leukocytosis
-IV Zosyn
-diet as per CRS
-Colorectal consult appreciated
-Vascular eval appreciated
-ID eval requested
CT abdomen pelvis with IV contrast:
1. Severe uncomplicated right-sided colitis likely infectious/inflammatory new from prior
2. Small to moderate right pleural effusion
3. Infectious/inflammatory bronchiolitis throughout the left lower lobe
#Chronic opioid-induced constipation
Last bowel movement 11/03/2023 normal per patient
-holding bowel regimen
#Ventricular Tachycardia- around 40sec run on 10/22/23
ICD placed on 10/26/23
-[facility] cardiology
Echo: Bioprosthetic MV disfunction noted on Echo might need GLADIS/cath in future
Severely increased RV pressures - can be 2/2 MV dysfunction
#Chronic HFrEF
#Recovered EF as of July 2023
I/O, daily weights
-Continue Lasix 40 mg twice daily
#Anemia of chronic disease exacerbated by acute loss because of the surgery and LILIANA
IV iron given recent admission
1 unit of PRBCs transfused on October 29, 2023 with good improvement in Hgb
-H&H stable
#Paroxysmal Afib
-Eliquis converted to hep gtt, metoprolol succinate 37.5 mg twice daily
#CAD sp CABG and failed PCI
#Bioprosthetic MVR
-Continue metoprolol succinate 37.5 mg twice daily, atorvastatin 80 mg every afternoon
#Pulmonary HTN
#HLD
-Continue atorvastatin 80 mg every afternoon
#PAD s/p stenting
#Orthostatic hypotension hx
#DM type 2 with neuropathy
Accu-Cheks with insulin SS< dm diet
cont metformin glipizide when on diet hold if npo
#Cholelithiasis without cholecystitis
Asymptomatic
#Intermittent hypercarbia, most likely MAGY hx recent admission
#Emphysematous changes on CT
#Mediastinal and perihilar lymphadenopathy
-outpatient sleep study
-pulmonology consult: WIll also need repeated chest CT in 3-6months
DVT prophylaxis
Continue [employer] Eliquis
Full code
I spent a total of 58 minutes with the patient or on the floor. More than 50% of this time involved counseling and coordination of care.
Anticipated Discharge: 24 - 48 hours
Subjective/Interval History
-
Date of Service: November 06, 2023
Objective Data
-
Labs:
Laboratory Results
11/05/23 11/06/23
23:40 06:53
WBC 17.4 H
Hgb 9.4 L
Hct 28.8 L
Plt Count 181
APTT 66.0 H 110.1 H
Sodium Pending
Potassium Pending
Chloride Pending
Carbon Dioxide Pending
BUN Pending
Creatinine Pending
Glucose Pending
Calcium Pending
Total Bilirubin Pending
AST Pending
ALT Pending
Alkaline Phosphatase Pending
Vital Signs:
Vital Signs
Temp Pulse Resp BP Pulse Ox
97.9 F 68 17 128/53 92
11/06/23 03:55 11/06/23 04:45 11/06/23 03:55 11/06/23 04:45 11/06/23 03:55
I&O
11/05/23 11/06/23 11/07/23
06:59 06:59 06:59
Intake Total 100 / 100 500 / 500
Output Total 150 / 150 700 / 700
Balance -50 / -50 -200 / -200
[2023-11-06] MEDS: NSS 1000 IV (08:15)
[2023-11-06] MEDS: GLUCOPHAGE 1000 MG PO ×2 (08:19→17:23)
[2023-11-06] MEDS: TOPROL XL 37.5 MG PO ×2 (08:19→20:47)
[2023-11-06] MEDS: NEURONTIN 600 MG PO ×3 (08:19→21:54)
[2023-11-06 08:33] LABS: ALT (SGPT) 11 U/L (0-50); AST (SGOT) 22 U/L (17-59); Alkaline Phosphatase 106 U/L (38-126); Blood Urea Nitrogen 18 mg/dl (9-20); Calcium 8.3 mg/dl (8.4-10.2); Carbon Dioxide 32 mmol/L (22-30); Chloride 96 mmol/L (98-107); Estimated Creatinine Clearance 63 ml/min; Glucose 82 mg/dl (70-99); Phosphorus 4.4 mg/dl (2.5-4.5); Potassium 3.9 mmol/L (3.5-5.1); Sodium 137 mmol/L (135-145); Total Bilirubin 1.1 mg/dl (0.2-1.3); Total Protein 5.8 g/dl (6.3-8.2); eGFR > 60.00
[2023-11-06] MEDS: MS CONTIN (EXTENDED RELEASE) 15 MG PO ×3 (08:47→21:54)
--- NOTE | 2023-11-06 09:54 | W.PN.PUL.V3 ---
Today's Communication / Plan
-
Follow-up thoracentesis results
Antibiotics
Bowel rest
Monitor for pleural fluid reaccumulation
Colorectal and vascular surgical consultations noted
Assessment
-
73-year-old male former smoker with a history of CAD/CABG and ventricular tachycardia status post ICD placement 10/26/2023 in addition to heart failure, mitral valve replacement, PAD, diabetes and ischemic colitis status post right colectomy
presented with increasing shortness of breath and noted to have a right pleural effusion-pulmonary consulted for right pleural effusion 11/05/2023.
Right pleural effusion
Shortness of breath
Leukocytosis
Xyxpcy-msajathxlq-zfcnapylqi 9.3
Mild hyperglycemia
Right-sided colitis
Conditions present prior to admission:
CAD/CABG/PCI.
V. tach 10/2023 status post ICD placement 10/26/2023.
CHF reduced EF-was 15% now 68%
Bioprosthetic MVR.
OKRD-54-bphn-year smoker quit 2007
PAD status post right femoral endarterectomy and right SFA stent.
TIA.
Left CEA.
PAF on Eliquis.
Diabetes.
Diabetic neuropathy.
Hypertension.
Pulm hypertension.
Prostate cancer.
Bladder cancer
Chronic opioid-induced constipation.
Marijuana use for pain
Acute colitis status post right colectomy 10/14/2023 CABG. MVR-bioprosthetic 02/2014. Left CEA 2022. Left shoulder surgery. Prostatectomy. Amputation left great toe.
DNR in the past
Plan
Mild respiratory decompensation may be related to small to moderate right pleural effusion of unclear etiology-small to my eye on chest x-ray and a small to moderate on CT
Supplemental oxygen as needed
Aspiration precautions
Incentive spirometry
Nebulizers if needed-currently not bronchospastic
Reviewed previous hospitalization and pulmonary's recommendations for follow-up
Outpatient pulmonary office arrange for thoracentesis
Patient never followed up in the office
Right thoracentesis 11/05/23--800 mL, pH 7.5, WBC 442, total protein less than 2.0, LDH 102, glucose 143, cultures pending, cytology pending
Monitor colitis
Monitor leukocytosis
Antibiotics initiated-should cover pulmonary infiltrates as well
Colorectal surgical consult-correspondence reviewed-no plans for emergent surgery, bowel rest, antibiotics and enemas as needed
Recommended stopping Eliquis and starting heparin in case procedure needed
Vascular surgery also saw patient 11/05/2023-recommended medical therapy, due to extensive plaque burden making options limited for Endo or open revascularization, if no relief then consider performing angiogram to see if there is flow channel to the
SMA to perform endovascular intervention
DVT prophylaxis-on Eliquis
Nutrition per GI
Early mobilization
Saw Dr. Pascual during last admission and plan was to have televisit the following week and set up a right-sided thoracentesis-he did not [id number]-bc-[id number] was attempted to be arranged as an outpatient-recommend follow-up after this
hospitalization
Diagnostic data:
Chest x-ray 03/03/2023: No active disease
Chest x-ray 11/04/2023-small right pleural effusion
CT abdomen and pelvis 11/04/2023-severe uncomplicated right-sided colitis, small to moderate right pleural effusion, infectious inflammatory bronchiolitis throughout left lung
Ultrasound chest 11/04/2023-moderate pleural effusion
Echo 10/23/2023: Normal biventricular function, EF 68%, mitral valve gradients have worsened, moderate MR, PA pressure 78, worsened
Echocardiogram 09/01/2022: EF 50%, bioprosthetic mitral valve, aortic sclerosis, normal right heart, cannot measure right heart pressures
Cardiac catheterization 01/23/2020-left main and three-vessel CAD occlusion, patent sequential SVG to diagonal OM PDA and collaterals to LAD, known occluded QUIÑONES to LAD, anterolateral wall hypokinesis
Subjective Data
-
Date of Service:
Date of Service: November 06, 2023
Chief Complaint: Pulmonary Follow Up and Dyspnea Follow Up
Subjective:
Feels better after thoracentesis, less short of breath, no chest pain, productive cough, pleurisy, abdominal pain improving and wants to eat
Review of Systems
General: Other (Per HPI)
Objective Data
Data Reviewed
Vital Signs / I&O:
Vital Signs
Temp Pulse Resp BP Pulse Ox
98.4 F 70 16 127/54 94
11/06/23 07:55 11/06/23 07:55 11/06/23 07:55 11/06/23 07:55 11/06/23 07:55
Intake and Output
11/05/23 11/06/23 11/07/23
06:59 06:59 06:59
Intake Total 100 / 100 500 / 500
Output Total 150 / 150 700 / 700
Balance -50 / -50 -200 / -200
SaO2: 94
Nasal Cannula flow liters per minute: 2
Physical Exam
General: Respiratory Distress (n) and Comfortable
HEENT: Normocephalic, Anicteric and Moist Mucous Membranes
Cardiovascular: Regular Rhythm
Respiratory: Wheeze (n), Crackles (Rare right basilar), Rhonchi (n), Non-Labored Respirations, Accessory Resp Muscle Use (n), Stridor (n) and Other (Diminished breath sounds and prolonged expiratory time)
GI: Soft and Tender (Mild without rebound or guarding)
Neurology: Awake, Alert and No Motor Deficits
Skin: Warm, Good Color, Cyanosis (n), Jaundice (n) and Rash (n)
Labs/Micro/Reports
Lab Data
11/06/23 06:53
11/06/23 06:53
Laboratory Results
11/05/23 11/05/23 11/06/23
17:22 23:40 06:53
APTT 42.7 H 66.0 H 110.1 H
Microbiology
11/05/23 14:14 Pleural Fluid Body Fluid Culture - Preliminary
No Growth After 18-24 Hours
11/05/23 14:14 Pleural Fluid Gram Stain - Preliminary
11/05/23 03:22 Nose MRSA Screen - Final
No Methicillin Resistant Staphylococcus aureus isolated.
11/05/23 14:14 Pleural Fluid Fungal Culture - Preliminary
Culture in progress.
Positive cultures are reported as soon as detected.
Final report to follow in four to five weeks.
--- NOTE | 2023-11-06 10:11 | VNURNOTE ---
Spoke with patient over the phone. He confirms he would like to resume VN services. Resumption referral placed in [facility]. Will continue to monitor hospital course.
--- NOTE | 2023-11-06 10:21 | PN.CDI ---
CDI
- -
CDI:
Physician Documentation Request
Admit Date: 11/04/23 20:53
Dear Doctor Jacob ,
Please review the following and provide your response in the progress notes.
Clinical Indicators:
Pt admitted with Right sided colitis Colitis, ischemic (as per pathology) 10/12/23
On IV Zosyn/ Bowel rest
CT abd/Pelvis on admit,' Severe uncomplicated right-sided colitis likely infectious/inflammatory etiology, new from prior...'
Clarify which of the following accurately represents the suspected acuity of the Ischemic Colitis
Acute
Acute on Chronic
Chronic
Other
Use of terms such as suspected, likely, concern for, or probable (associated with a specific diagnosis that is being evaluated, monitored, or treated as if it exists) are acceptable and can be coded in the inpatient setting, when documented at the
time of discharge.
Thank you,
Marisol Fuller RN
CDI Specialist
[place] [facility]
Please use your independent medical judgment in providing your response.
--- NOTE | 2023-11-06 10:25 | PN.CDI ---
CDI
- -
CDI:
Physician Documentation Request
Admit Date: 11/04/23 20:53
Dear Doctor Jacob,
Please review the following and provide your response in the progress notes.
Clinical Indicators:
Pt admitted with ischemic right sided colitis
Documented per ED, ' Chronic pain syndrome, chronic opioid use..'
Per [facility] pt is on gabapentin 600 mg tablet 600 mg PO TID Pain 12/19/22 /oxycodone 10 mg tablet 10 mg PO Q6H PRN Pain 02/26/23 /morphine 15 mg tablet,extended release 15 mg PO Q8H Pain 07/18/23
Pt home medications includes Oxycodone/Morphine ER. Please clarify if there is a diagnosis associated with the above medication usage.
Opioid dependence, continuous/daily use.
Opioid use only
Other
Use of terms such as suspected, likely, concern for, or probable (associated with a specific diagnosis that is being evaluated, monitored, or treated as if it exists) are acceptable and can be coded in the inpatient setting, when documented at the
time of discharge.
Thank you,
Marisol Fuller RN
CDI Specialist
[place] [facility]
Please use your independent medical judgment in providing your response.
--- NOTE | 2023-11-06 10:40 | W.PN.CRS1 ---
Today's Communication / Plan
-
full liquids
No plans for surgery
Assessment/Plan
-
Assessment: 73-year-old male with recent right colectomy due to ascending colitis presents to the ER with shortness of breath, abdominal pain, and vomiting, found to have right-sided colitis on CT
WBC: 17.4 from 16.7. Afebrile.
Plan:
-No plans for emergent OR at this time
�Patient would like to eat, will advance to full's. Discussed this at length with the patient to go slow and to stop if he experiences any nausea vomiting or pain.
-Continue IV antibiotics
-Enemas as needed
-No plans for surgery at this time.
-Okay for bowel regimen
-Monitor WBC
Subjective Data
Subjective Data
Date of Service: November 06, 2023
Patient states she feels about the same. He is not in that much pain. He is very hungry.
Objective Data
-
Vital Signs
Temp Pulse Resp BP Pulse Ox
98.4 F 70 16 127/54 94
11/06/23 07:55 11/06/23 07:55 11/06/23 07:55 11/06/23 07:55 11/06/23 09:54
Intake & Output
11/05/23 11/06/23 11/07/23
06:59 06:59 06:59
Intake Total 100 / 100 500 / 500
Output Total 150 / 150 700 / 700
Balance -50 / -50 -200 / -200
Intake:
Oral fluids 300 / 300
IV piggybacks 100 / 100 200 / 200
Output:
Urine, Voided 150 / 150 700 / 700
Other:
How many times incontinent 1
MODERATE amount urine
Lab Results
11/06/23 06:53
11/06/23 06:53
Physical Exam
-
General: No Acute Distress and AOx3
Abdomen: Soft, Non Distended and Non Tender
Skin: Warm and Dry
[2023-11-06 11:52] LABS: Glucose - Point of Care 115 mg/dl (70-99)
[2023-11-06] MEDS: NOVOLOG FLEXPEN-LOW RESISTANCE SC ×2 (11:53→16:53)
--- NOTE | 2023-11-06 12:30 | CM ---
Case management following for discharge planning
Chart reviewed - spoke with pt
PT - recs - home PT vs no needs. Discussed with pt. Requesting [facility]
Liaison aware
Plan - anticipate home with [facility]
--- NOTE | 2023-11-06 14:22 | CON.ID ---
Consultation
-
Date/Time Consultation Requested: 11/06/2023 1115
Date/Time Consultation Performed: 11/06/2023 1415
Requesting Provider: Dr. James
Performing Provider: Dr. Degroot
Reason for Consultation: Leukocytosis
Chief Complaint / Past History
Chief Complaint
Abdominal pain
History of Present Illness
Herrera Angel is a 73-year-old man being evaluated at the request of Dr. James in regards to leukocytosis. History is obtained from chart review, along with patient interview.
The patient has a significant past medical history of DM, CHF, MVR, CAD and PAD who recently was hospitalized at [facility] in early October for right sided ischemic colitis. During that hospitalization he underwent a right hemicolectomy.
He was discharged to home on 10/28. He reports in the interim he developed some constipation over the prior 2 to 3 days and then developed shortness of breath requiring a call to EMS. He presented back to the hospital on 11/03. Workup in the ER
revealed a leukocytosis. The patient was placed on empiric antibiotics (Zosyn). Since admission, he reports feeling somewhat improved. Imaging revealed the presence of a right pleural effusion which was tapped yesterday, and the patient reports
decreased work of breathing today. Additionally, CT imaging of the abdomen revealed right-sided colitis, which has been evaluated by CRS and vascular. The patient reports an episode of loose stool today.
Past History
Additional Past Medical History:
DM-II with Neuropathy
Chronic HFpEF
Chronic hypotension
COPD
Bioprosthetic MVR
CAD s/p CABG
Paroxysmal Atrial Fibrillation
Additional Past Surgical History:
PAD s/p RLE stent, s/p Bilateral Fem-Pop Bypass
Left CEA
Bladder Cancer s/p TURBT (07/2023)
Prostate Cancer s/p prostatectomy
Chronic Pain / Chronic Opioid Dependence
Left hallux amputation
Left shoulder surgery
Allergy History:
fish derived Allergy (Verified 10/12/23 12:10)
SEAFOOD-HIVES
Medications Reviewed: Yes
Current Antibiotics:
Zosyn 3.375 g IV every 6 hours
Social History
Tobacco: Former Smoker
Alcohol: None
Drug: Marijuana (medical)
Personal:
Living: With Family
Family History
Family History: Not Pertinent
Review of Systems
Vital Signs
Temp Pulse Resp BP Pulse Ox
97.7 F 61 16 98/43 97
11/06/23 11:16 11/06/23 11:16 11/06/23 11:16 11/06/23 11:16 11/06/23 11:16
Physical Exam
Physical Exam
Constitutional: No Acute Distress, Comfortable, Chronically Ill, Non-toxic and Cachetic (mild)
Eyes: No Conjunctival Hemorrhage and Sclera Anicteric
Oral: No Thrush and No Ulcers
Cardiovascular: Regular Rate and S1/S2; Negative S3/S4
Pulmonary: Clear and Non Labored; Negative Wheezes or Rales
Gastrointestinal: Soft, Non Tender and Non Distended
Musculoskeletal: Negative Joint Swelling or Joint Effusion
Neurological: Awake and Alert
Psychological: Calm
.
Lab / Diagnostic Study Results
11/06/23 06:53
11/06/23 06:53
Abs Immat Gran (auto) 0.1 10^3/uL (0-0.05) H 11/06/23 06:53
Absolute Neuts (auto) 14.2 10^3/uL (1.4-6.5) H 11/06/23 06:53
Absolute Lymphs (auto) 1.3 10^3/uL (1.2-3.4) 11/06/23 06:53
Absolute Monos (auto) 1.2 10^3/uL (0.1-0.6) H 11/06/23 06:53
Absolute Basos (auto) 0.1 10^3/uL (0-0.2) 11/06/23 06:53
Immature Gran % 0.7 % (0-0.5) H 11/06/23 06:53
Neutrophils % 81.4 % (42.2-75.2) H 11/06/23 06:53
Lymphocytes % 7.6 % (20.5-51.1) L 11/06/23 06:53
Monocytes % 6.6 % (1.7-9.3) 11/06/23 06:53
Eosinophils % 3.2 % (0-6) 11/06/23 06:53
Basophils % 0.5 % (0-2) 11/06/23 06:53
C-Reactive Protein 84.60 mg/L (0.0-10.00) H 11/06/23 06:53
Microbiology Results
Micro:
11/05/23 14:14 Body Fluid Culture - Preliminary
Pleural Fluid No Growth After 18-24 Hours
Gram Stain - Preliminary
11/05/23 03:22 MRSA Screen - Final
Nose No Methicillin Resistant Staphylococcus aureus isolated.
11/05/23 14:14 Fungal Culture - Preliminary
Pleural Fluid Culture in progress.
Positive cultures are reported as soon as detected.
Final report to follow in four to five weeks.
11/05/23 14:14 Acid Fast Bacilli Smear - Pending
Pleural Fluid Acid Fast Bacilli Culture - Pending
Imaging:
11/04/2023 CT abdomen/pelvis: Severe uncomplicated right-sided colitis is noted which is either infectious or inflammatory in etiology. There is a small moderate right pleural effusion. There is also infectious/inflammatory bronchiolitis throughout
the left lower lobe. Please see full dictation for additional detail.
Assessment / Plan
Chronic leukocytosis
Right-sided colitis
Episode of diarrhea
DM-II with Neuropathy
Chronic HFpEF
Chronic hypotension
COPD
Bioprosthetic MVR
CAD s/p CABG
Paroxysmal Atrial Fibrillation
Recommendations:
Continue with empiric Zosyn for today.
Given leukocytosis and episode of diarrhea, will check C. difficile testing.
Monitor white count and temperature curve.
Monitor clinical exam.
Further recommendations as additional data is returned.
[2023-11-06 14:26] LABS: APTT 92.2 Sec (23.4-35.0)
[2023-11-06] MEDS: ZOSYN 50 IV ×2 (14:36→20:47)
[2023-11-06] MEDS: LASIX 40 MG PO (16:09)
[2023-11-06 16:51] LABS: Glucose - Point of Care 140 mg/dl (70-99)
[2023-11-06] MEDS: GLUCOTROL XL (EXTENDED RELEASE) 2.5 MG PO (17:23)
[2023-11-06] MEDS: LIPITOR 80 MG PO (17:23)
[2023-11-06] MEDS: HEPARIN 25000 UNITS/250 ML IV (17:31)
[2023-11-06 21:51] LABS: Glucose - Point of Care 139 mg/dl (70-99)
[2023-11-06] MEDS: AMBIEN 5 MG PO (21:54)
--- NOTE | 2023-11-06 22:00 | PTCARENOTE ---
Patient starting with multiple loose BMs since change of shift, patient requesting to get something to 'block me up.' CDiff orders initially cancelled during dayshift as patient was not having any BMs. CDiff reordered by NUNO and sent with remainder
of stool studies -- results pending. Will monitor.
[2023-11-07 03:00] VITALS: BP 120/52
[2023-11-07] MEDS: ZOSYN 50 IV ×4 (03:06→22:11)
[2023-11-07] MEDS: MS CONTIN (EXTENDED RELEASE) 15 MG PO ×3 (05:59→22:11)
[2023-11-07 06:00] VITALS: BMI 20.6
[2023-11-07 06:40] LABS: % Basophils 0.7 % (0-2); % Eosinophils 5.1 % (0-6); % Immature Granulocytes 0.9 % (0-0.5); % Lymphocytes 12.3 % (20.5-51.1); % Monocytes 6.6 % (1.7-9.3); % Neutrophils 74.4 % (42.2-75.2); Absolute Basophils 0.1 10^3/uL (0-0.2); Absolute Eosinophils 0.7 10^3/uL (0-0.7); Absolute Immature Granulocytes 0.1 10^3/uL (0-0.05); Absolute Lymphocytes 1.6 10^3/uL (1.2-3.4); Absolute Monocytes 0.9 10^3/uL (0.1-0.6); Absolute Neutrophils 9.6 10^3/uL (1.4-6.5); Hematocrit 29.6 % (39.0-52.0); Hemoglobin 9.6 g/dL (13.0-18.0); Mean Corp Hgb Conc. 32.4 g/dL (33.0-37.0); Mean Corpuscular Hgb 27.4 pg (27.0-31.0); Mean Corpuscular Volume 84.3 fL (80.0-94.0); Mean Platelet Volume 10.5 fL (7.4-10.4); Nucleated Red Blood Cells % 0 % (-); Platelet Count 209 10^3/uL (130-400); Red Blood Cell Count 3.51 10^6/uL (4.70-6.10); Red Cell Dist. Width 16.4 % (11.5-14.5); White Blood Cell Count 12.9 10^3/uL (4.8-10.8)
[2023-11-07 06:58] LABS: APTT 55.3 Sec (23.4-35.0)
[2023-11-07 07:04] LABS: ALT (SGPT) 13 U/L (0-50); AST (SGOT) 22 U/L (17-59); Albumin 3.4 g/dl (3.5-5.0); Alkaline Phosphatase 106 U/L (38-126); Blood Urea Nitrogen 12 mg/dl (9-20); Calcium 8.8 mg/dl (8.4-10.2); Carbon Dioxide 31 mmol/L (22-30); Chloride 96 mmol/L (98-107); Estimated Creatinine Clearance 62 ml/min; Glucose 97 mg/dl (70-99); Phosphorus 4.1 mg/dl (2.5-4.5); Potassium 4.4 mmol/L (3.5-5.1); Sodium 139 mmol/L (135-145); Total Bilirubin 0.9 mg/dl (0.2-1.3); Total Protein 6.4 g/dl (6.3-8.2); eGFR > 60.00
[2023-11-07 07:17] LABS: Glucose - Point of Care 117 mg/dl (70-99)
--- NOTE | 2023-11-07 07:35 | W.PN.HOSP.TC ---
Addendum entered and electronically signed by Roberto James MD 11/08/23 07:50:
Opioid dependence
Acute colitis
Original Note:
Today's Communication/Plan
-
cont abx as per ID
pain control
diet as per CRS
Assessment / Plan
Assessment / Plan
Physical Exam
General: Conversant; No Fever or Chills
HEENT: NormoCephalic, Anicteric, Moist mucous membranes, PERRLA, [place] Conjunctivae and No Ptosis
Respiratory: Clear and Other (Slight diminished right lung); No Wheezes
Cardiac: S1/S2 and Regular Rhythm; No Murmur, Rub, Gallop or Peripheral Edema
GI: Soft, Non Distended, Normal Bowel Sounds, Tender (Right lower abdomen) and No Hepatosplenomegaly
Musculoskeletal: No Clubbing, No Cyanosis and No Edema
Skin: Warm; No Rash
Neuro: AO x 3, No Motor Deficits, Nonfocal/grossly intact, Cranial Nerves Intact and No Sensory Deficits; No Slurred Speech, Facial Droop or Tremors
Psych: Calm
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
admission 10/11-10/28 for ischemic colitis s/p right-sided colectomy on 10/13 presents to the ER with shortness of breath and vomiting. Last hospital course c/b post-op ileus VT s/p AICD on 10/25.
#Small/moderate right pleural effusion
#Chronic right pleural effusion/Bronchiolitis left lower lobe
-98% RA, COVID-negative
-Consult pulmonary patient follows with Dr. moody
-Ultrasound chest for fluid volume status might need possible thoracentesis
-CXR: small right pleural effusion airspace opacities/infectious/inflammatory bronchiolitis overall improved from prior
-Pulm IR eval appreciated
#Right sided colitis
#Colitis, ischemic (as per pathology) 10/12/23 s/p ex lap with hemicolectomy and primary anastomosis on 10/13 with persistent leukocytosis
#Post OP ileus-resolved with laxatives and MOM
#History of Constipation requiring enemas twice weekly-times several years
#Chronic persistent leukocytosis
-IV Zosyn
-diet as per CRS
-Colorectal consult appreciated
-Vascular eval appreciated
-ID eval appreciated
CT abdomen pelvis with IV contrast:
1. Severe uncomplicated right-sided colitis likely infectious/inflammatory new from prior
2. Small to moderate right pleural effusion
3. Infectious/inflammatory bronchiolitis throughout the left lower lobe
#Chronic opioid-induced constipation
Last bowel movement 11/03/2023 normal per patient
-holding bowel regimen
#Ventricular Tachycardia- around 40sec run on 10/22/23
ICD placed on 10/26/23
-DCA cardiology
Echo: Bioprosthetic MV disfunction noted on Echo might need GLADIS/cath in future
Severely increased RV pressures - can be 2/2 MV dysfunction
#Chronic HFrEF
#Recovered EF as of July 2023
I/O, daily weights
-Continue Lasix 40 mg twice daily
#Anemia of chronic disease exacerbated by acute loss because of the surgery and LILIANA
IV iron given recent admission
1 unit of PRBCs transfused on October 29, 2023 with good improvement in Hgb
-H&H stable
#Paroxysmal Afib
-Eliquis converted to hep gtt, metoprolol succinate 37.5 mg twice daily
#CAD sp CABG and failed PCI
#Bioprosthetic MVR
-Continue metoprolol succinate 37.5 mg twice daily, atorvastatin 80 mg every afternoon
#Pulmonary HTN
#HLD
-Continue atorvastatin 80 mg every afternoon
#PAD s/p stenting
#Orthostatic hypotension hx
#DM type 2 with neuropathy
Accu-Cheks with insulin SS< dm diet
cont metformin glipizide when on diet hold if npo
#Cholelithiasis without cholecystitis
Asymptomatic
#Intermittent hypercarbia, most likely MAGY hx recent admission
#Emphysematous changes on CT
#Mediastinal and perihilar lymphadenopathy
-outpatient sleep study
-pulmonology consult: WIll also need repeated chest CT in 3-6months
DVT prophylaxis
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
Full code
I spent a total of 50 minutes with the patient or on the floor. More than 50% of this time involved counseling and coordination of care.
Anticipated Discharge: 24 - 48 hours
Subjective/Interval History
-
Date of Service: November 07, 2023
no acute distress. overall reports feeling well. Tolerating diet
Objective Data
-
Labs:
Laboratory Results
11/07/23
06:18
WBC 12.9 H
Hgb 9.6 L
Hct 29.6 L
Plt Count 209
APTT 55.3 H
Sodium 139
Potassium 4.4
Chloride 96 L
Carbon Dioxide 31 H
BUN 12
Creatinine 1.1
Glucose 97
Calcium 8.8
Total Bilirubin 0.9
AST 22
ALT 13
Alkaline Phosphatase 106
Vital Signs:
Vital Signs
Temp Pulse Resp BP Pulse Ox
98.0 F 69 16 120/52 99
11/07/23 03:00 11/07/23 03:00 11/07/23 03:00 11/07/23 03:00 11/07/23 03:00
I&O
11/06/23 11/07/23 11/08/23
06:59 06:59 06:59
Intake Total 500 / 500 820 / 820
Output Total 700 / 700 410 / 410
Balance -200 / -200 410 / 410
[2023-11-07 07:40] VITALS: BP 123/54
[2023-11-07] MEDS: NOVOLOG FLEXPEN-LOW RESISTANCE SC ×2 (08:03→11:41)
[2023-11-07] MEDS: LASIX 40 MG PO ×2 (08:09→15:41)
[2023-11-07] MEDS: NEURONTIN 600 MG PO ×3 (08:09→22:11)
[2023-11-07] MEDS: GLUCOPHAGE 1000 MG PO ×2 (08:09→16:26)
[2023-11-07] MEDS: TOPROL XL 37.5 MG PO ×2 (08:09→22:11)
[2023-11-07] MEDS: FLORASTOR 250 MG PO (10:22)
[2023-11-07 11:02] VITALS: BP 120/54
--- NOTE | 2023-11-07 11:06 | W.PN.PUL3 ---
Today's Communication / Plan
-
Follow-up thoracentesis micro and cytopathology
Antibiotics
Low residue diet --> ADAT
Monitor for pleural fluid reaccumulation - re-check CXR tomorrow
Colorectal and vascular surgical consultations noted
Outpatient follow-up with our office will be arranged s/p discharge
Assessment
-
73-year-old male former smoker with a history of CAD/CABG and ventricular tachycardia status post ICD placement 10/26/2023 in addition to heart failure, mitral valve replacement, PAD, diabetes and ischemic colitis status post right colectomy
presented with increasing shortness of breath and noted to have a right pleural effusion-pulmonary consulted for right pleural effusion 11/05/2023.
Right pleural effusion likely due to severe right-sided colitis (seen on CT A/P from 11/04/2023); he also has valvular heart disease with risk factors for acute decompensated heart failure
- Of note, right sided pleural fluid has been present in at least a mild amount since CT A/P on 10/12/2023
Shortness of breath
Leukocytosis
Hbhepi-[id number]-uplfkaaxry 9.3
Mild hyperglycemia
Right-sided colitis
Conditions present prior to admission:
CAD/CABG/PCI.
V. tach 10/2023 status post ICD placement 10/26/2023.
CHF reduced EF-was 15% now 68%
Bioprosthetic MVR.
COPD with centrilobular ppuvjhlli-40-heng-year smoker quit 2007
PAD status post right femoral endarterectomy and right SFA stent.
TIA.
Left CEA.
PAF on Eliquis.
Diabetes.
Diabetic neuropathy.
Hypertension.
Pulm hypertension.
Prostate cancer.
Bladder cancer
Chronic opioid-induced constipation.
Marijuana use for pain
Acute colitis status post right colectomy 10/14/2023 CABG. MVR-bioprosthetic 02/2014. Left CEA 2022. Left shoulder surgery. Prostatectomy. Amputation left great toe.
DNR in the past
Plan
Mild respiratory decompensation related to small to moderate right pleural effusion
- He feels markedly improved since thoracentesis on 11/04 (800cc of transudative fluid removed)
- Follow up micro and cytopathology
Supplemental oxygen as needed to keep SpO2 88-95%
Aspiration precautions
Incentive spirometry
Nebulizers if needed-currently not bronchospastic
Reviewed previous hospitalization and pulmonary's recommendations for follow-up
Outpatient pulmonary office arrange for thoracentesis
Patient never followed up in the office
Right thoracentesis 11/05/23--800 mL, pH 7.5, WBC 442, total protein less than 2.0, LDH 102, glucose 143
Monitor colitis
Monitor leukocytosis
Antibiotics initiated - continue Zosyn; this should cover pulmonary infiltrates as well (MRSA screen negative)
Colorectal surgical consult-correspondence reviewed-no plans for emergent surgery, bowel rest, antibiotics and enemas as needed
Recommended stopping Eliquis and starting heparin in case procedure needed
Vascular surgery also saw patient 11/05/2023-recommended medical therapy, due to extensive plaque burden making options limited for Endo or open revascularization, if no relief then consider performing angiogram to see if there is flow channel to the
SMA to perform endovascular intervention; he doubts patient has chronic mesenteric ischemia
DVT prophylaxis-on heparin gtt
Nutrition per GI
Early mobilization
Saw Dr. Pascual during last admission and plan was to have televisit the following week and set up a right-sided thoracentesis-he did not [id number] was attempted to be arranged as an outpatient-recommend follow-up after this
hospitalization
Pulmonary service will continue to follow along while patient remains hospitalized.
Total time spent today was 35 minutes for this encounter. Time includes reviewing laboratory test/imaging results, reviewing pertinent medical records, obtaining and reviewing medical history, performing an appropriate exam, ordering medications,
tests and procedures. Time also includes documentation of this encounter, coordinating patient care and communicating with other healthcare professionals. Total time does not include separately billed tests performed on this date of service.
Diagnostic data:
Chest x-ray 03/03/2023: No active disease
Chest x-ray 11/04/2023-small right pleural effusion
CT abdomen and pelvis 11/04/2023-severe uncomplicated right-sided colitis, small to moderate right pleural effusion, infectious inflammatory bronchiolitis throughout left lung
Ultrasound chest 11/04/2023-moderate pleural effusion
Echo 10/23/2023: Normal biventricular function, EF 68%, mitral valve gradients have worsened, moderate MR, PA pressure 78, worsened
Echocardiogram 09/01/2022: EF 50%, bioprosthetic mitral valve, aortic sclerosis, normal right heart, cannot measure right heart pressures
Cardiac catheterization 01/23/2020-left main and three-vessel CAD occlusion, patent sequential SVG to diagonal OM PDA and collaterals to LAD, known occluded QUIÑONES to LAD, anterolateral wall hypokinesis
Subjective Data
-
Date of Service:
Date of Service: November 07, 2023
Chief Complaint: Pulmonary Follow Up and Dyspnea Follow Up
Subjective:
Patient seen and evaluated at bedside. at bedside as well. All questions were answered. He feels better. He is on room air breathing comfortably. No acute events reported overnight. Currently denies chest pain, BRAVO, abdominal pain, fevers
or chills.
Review of Systems
General: Other (Negative unless mentioned above)
Objective Data
Data Reviewed
Vital Signs / I&O / Oxygen:
Vital Signs
Temp Pulse Resp BP Pulse Ox
98.1 F 65 16 120/54 98
11/07/23 11:02 11/07/23 11:02 11/07/23 11:02 11/07/23 11:02 11/07/23 11:02
Intake and Output
11/06/23 11/07/23 11/08/23
06:59 06:59 06:59
Intake Total 500 / 500 970 / 970
Output Total 700 / 700 410 / 410
Balance -200 / -200 560 / 560
SaO2 98
Nasal Cannula flow liters per 2
minute
Physical Exam
General: Respiratory Distress (n) and Comfortable
HEENT: Normocephalic, Anicteric and Moist Mucous Membranes
Cardiovascular: Regular Rhythm
Respiratory: Wheeze (n), Crackles (Rare right basilar), Rhonchi (n), Non-Labored Respirations, Accessory Resp Muscle Use (n), Stridor (n) and Other (Diminished breath sounds and prolonged expiratory time)
GI: Soft and Tender (Mild without rebound or guarding)
Neurology: Awake, Alert and No Motor Deficits
Skin: Warm, Good Color, Cyanosis (n), Jaundice (n) and Rash (n)
Labs/Micro/Reports
Lab Data
11/07/23 06:18
11/07/23 06:18
Laboratory Results
11/06/23 11/07/23
13:46 06:18
APTT 92.2 H 55.3 H
Microbiology
11/06/23 22:40 Feces/Stool C. difficile GDH Antigen & Toxins - Final
Negative for toxigenic C.difficile
11/05/23 14:14 Pleural Fluid Body Fluid Culture - Preliminary
No Growth After 18-24 Hours
11/05/23 14:14 Pleural Fluid Gram Stain - Preliminary
11/05/23 03:22 Nose MRSA Screen - Final
No Methicillin Resistant Staphylococcus aureus isolated.
11/05/23 14:14 Pleural Fluid Fungal Culture - Preliminary
Culture in progress.
Positive cultures are reported as soon as detected.
Final report to follow in four to five weeks.
[2023-11-07 11:39] LABS: Glucose - Point of Care 139 mg/dl (70-99)
--- NOTE | 2023-11-07 11:43 | W.PN.ID1 ---
Date of Service
Date of Service: November 07, 2023
Today's Communication
Continue zosyn for today.
Assessment / Plan
Chronic leukocytosis
- improved today
Right-sided colitis
- felt to most likely be ischemic
Diarrhea
DM-II with Neuropathy
Chronic HFpEF
Chronic hypotension
COPD
Bioprosthetic MVR
CAD s/p CABG
Paroxysmal Atrial Fibrillation
Recommendations:
Continue with empiric Zosyn for today.
C. difficile testing negative
Monitor white count and temperature curve.
Monitor clinical exam.
Further recommendations as additional data is returned.
Chief Complaint
-: Other (Abdominal pain)
Subjective / Review of Systems
Patient seen and examined. Reports feeling somewhat improved today. Notes less abdominal discomfort, but has had ongoing diarrhea throughout the night. Prior C. difficile testing was negative.
Vital Signs / Physical Exam
Vital Signs
Vital Signs
Temp Pulse Resp BP Pulse Ox
98.1 F 65 16 120/54 98
11/07/23 11:02 11/07/23 11:02 11/07/23 11:02 11/07/23 11:02 11/07/23 11:02
Physical Exam
Constitutional: No Acute Distress, Comfortable, Chronically Ill and Non-toxic
Eyes: Sclera Anicteric
Pulmonary: Non Labored
Gastrointestinal: Soft, Non Tender, Non Distended and Normal Bowel Sounds
Neurological: Awake and Alert
Psychological: Calm
Objective Data
Lab Data
Lab Results
11/07/23 06:18
11/07/23 06:18
APTT 55.3 Sec (23.4-35.0) H 11/07/23 06:18
Estimated Creat Clear 62 ml/min 11/07/23 06:18
Total Bilirubin 0.9 mg/dl (0.2-1.3) 11/07/23 06:18
AST 22 U/L (17-59) 11/07/23 06:18
ALT 13 U/L (0-50) 11/07/23 06:18
Alkaline Phosphatase 106 U/L (38-126) 11/07/23 06:18
C-Reactive Protein 84.60 mg/L (0.0-10.00) H 11/06/23 06:53
Most recent labs reviewed.
Micro Results:
11/06/23 22:40 C. difficile GDH Antigen & Toxins - Final
Feces/Stool Negative for toxigenic C.difficile
11/06/23 22:40 Salmonella/Shigella Culture - Pending
Feces/Stool Campylobacter Culture - Pending
Shiga Toxin Test - Pending
11/05/23 14:14 Body Fluid Culture - Preliminary
Pleural Fluid No Growth After 18-24 Hours
Gram Stain - Preliminary
11/05/23 03:22 MRSA Screen - Final
Nose No Methicillin Resistant Staphylococcus aureus isolated.
11/05/23 14:14 Fungal Culture - Preliminary
Pleural Fluid Culture in progress.
Positive cultures are reported as soon as detected.
Final report to follow in four to five weeks.
11/05/23 14:14 Acid Fast Bacilli Smear - Pending
Pleural Fluid Acid Fast Bacilli Culture - Pending
Imaging:
11/04/2023 CT abdomen/pelvis: Severe uncomplicated right-sided colitis is noted which is either infectious or inflammatory in etiology. There is a small moderate right pleural effusion. There is also infectious/inflammatory bronchiolitis throughout
the left lower lobe. Please see full dictation for additional detail.
--- NOTE | 2023-11-07 12:38 | W.PN.CRS1 ---
Today's Communication / Plan
-
LRD
Assessment/Plan
-
Assessment: 73-year-old male with recent right colectomy on 10/12 due to ascending colitis/?ischemic who presented to the ER with shortness of breath, abdominal pain, and vomiting, found to have right-sided colitis on CT
Leukocytosis improving
Now having multiple BM's (loose), c-diff negative. Other stool studies pending
Plan:
-Advance to LRD
-Continue IV antibiotics as per ID
-No plans for further surgery at this time, surgery to follow peripherally, please call with questions concerns
Subjective Data
Subjective Data
Date of Service: November 07, 2023
Patient seen and examined at bedside with Dr. Esteban. Feels much better today. Denies abdominal pain. Denies n/v. Passed multiple BM's overnight which relieved his abdominal distention. Denies hematochezia.
Objective Data
-
Vital Signs
Temp Pulse Resp BP Pulse Ox
98.1 F 65 16 120/54 98
11/07/23 11:02 11/07/23 11:02 11/07/23 11:02 11/07/23 11:02 11/07/23 11:02
Intake & Output
11/06/23 11/07/23 11/08/23
06:59 06:59 06:59
Intake Total 500 / 500 970 / 970
Output Total 700 / 700 410 / 410
Balance -200 / -200 560 / 560
Intake:
Oral fluids 300 / 300 480 / 480
IV fluids (Total) 200 / 200
IV piggybacks 200 / 200 290 / 290
Output:
Urine, Voided 700 / 700 410 / 410
Other:
Number of approximated MODERATE 7
amounts of urine
Number of approximated LARGE 1
amounts of urine
How many times incontinent 1
MODERATE amount urine
Number of unmeasured liquid
stools
Rectum 7
Lab Results
11/07/23 06:18
11/07/23 06:18
Physical Exam
-
General: No Acute Distress and AOx3
Abdomen: Soft, Non Distended and Non Tender
Skin: Warm and Dry
Incision: Other (healing well)
[2023-11-07] MEDS: ROXICODONE 10 MG PO (15:01)
[2023-11-07 15:19] LABS: APTT 85.3 Sec (23.4-35.0)
[2023-11-07] MEDS: HEPARIN 25000 UNITS/250 ML IV (15:46)
[2023-11-07 15:59] VITALS: BP 140/60
[2023-11-07 16:20] LABS: Glucose - Point of Care 222 mg/dl (70-99)
[2023-11-07] MEDS: LIPITOR 80 MG PO (16:29)
[2023-11-07] MEDS: GLUCOTROL XL (EXTENDED RELEASE) 2.5 MG PO (16:29)
[2023-11-07] MEDS: NOVOLOG FLEXPEN-LOW RESISTANCE 2 UNITS SC (16:58)
[2023-11-07 19:00] VITALS: BP 123/57
[2023-11-07 21:54] LABS: Glucose - Point of Care 125 mg/dl (70-99)
[2023-11-07 22:10] LABS: APTT 116.4 Sec (23.4-35.0)
[2023-11-07] MEDS: COLACE 100 MG PO (22:11)
[2023-11-07] MEDS: AMBIEN 5 MG PO (22:31)
[2023-11-07 23:00] VITALS: BP 129/59
[2023-11-08 03:00] VITALS: BP 120/53
[2023-11-08] MEDS: ZOSYN 50 IV ×2 (03:50→07:46)
--- NOTE | 2023-11-08 04:16 | PTCARENOTE ---
Provided HS medications to patient this evening and discussed with patient holding on giving PRN Ambien for 30 mins-1 hour as patient became drowsy/lethargic the night prior. Patient understanding. Provided PRN Ambien approx 30 minutes following HS
meds. Will continue to monitor closely.
[2023-11-08 05:18] LABS: APTT 123.1 Sec (23.4-35.0)
[2023-11-08] MEDS: MS CONTIN (EXTENDED RELEASE) 15 MG PO ×2 (05:58→13:28)
[2023-11-08 06:00] VITALS: BMI 20.4
[2023-11-08 07:08] LABS: Glucose - Point of Care 120 mg/dl (70-99)
[2023-11-08 07:32] VITALS: BP 96/58
--- NOTE | 2023-11-08 07:33 | W.PN.HOSP.TC ---
Today's Communication/Plan
-
discharge
Assessment / Plan
Assessment / Plan
Physical Exam
General: Conversant; No Fever or Chills
HEENT: NormoCephalic, Anicteric, Moist mucous membranes, PERRLA, [place] Conjunctivae and No Ptosis
Respiratory: Clear
Cardiac: S1/S2 and Regular Rhythm; No Murmur, Rub, Gallop or Peripheral Edema
GI: Soft, Non Distended, Normal Bowel Sounds, nontender and No Hepatosplenomegaly
Musculoskeletal: No Clubbing, No Cyanosis and No Edema
Skin: Warm; No Rash
Neuro: AO x 3
Psych: Calm
73 yo man with hx CAD s/p PCI and CABG, bioprosthetic MVR, hx cardiomyopathy with improved EF, hx TIA, left carotid stenosis s/p CEA 03/07, PAD s/p right SFA and popliteal WOOL HAT FLANGER and stent 11/02, paroxysmal afib on Eliqu, HTN, COPD, DM2, recent
admission 10/11-10/28 for ischemic colitis s/p right-sided colectomy on 10/13 presents to the ER with shortness of breath and vomiting. Last hospital course c/b post-op ileus VT s/p AICD on 10/25.
#Small/moderate right pleural effusion
#Chronic right pleural effusion/Bronchiolitis left lower lobe
-98% RA, COVID-negative
-Consult pulmonary patient follows with Dr. Cheung
-Ultrasound chest appreciated
-CXR: small right pleural effusion airspace opacities/infectious/inflammatory bronchiolitis overall improved from prior
-Pulm IR eval appreciated s/p thoracentesis 800 cc fluid study not suggestive infection pathology pending cultures NGTD
-follow up CXR notes tiny right pleural effusion. Repeat CXR with primary in 2 weeks recommended
#Acute Right sided colitis
#Colitis, ischemic (as per pathology) 10/12/23 s/p ex lap with hemicolectomy and primary anastomosis on 10/13 with persistent leukocytosis
#Post OP ileus-resolved with laxatives and MOM
#History of Constipation requiring enemas twice weekly-times several years
#Chronic persistent leukocytosis
-IV Zosyn transitioned to Augmentin for 5 more days as per ID
-diet as per CRS
-Colorectal consult appreciated
-Vascular eval appreciated
-ID eval appreciated
-Cdiff neg
CT abdomen pelvis with IV contrast:
1. Severe uncomplicated right-sided colitis likely infectious/inflammatory new from prior
2. Small to moderate right pleural effusion
3. Infectious/inflammatory bronchiolitis throughout the left lower lobe
#Chronic opioid-induced constipation
#opioid dependence
monitor bowel movements
bowel regimen as necessary
#Ventricular Tachycardia- around 40sec run on 10/22/23
ICD placed on 10/26/23
-DCA cardiology
Echo: Bioprosthetic MV disfunction noted on Echo might need GLADIS/cath in future
Severely increased RV pressures - can be 2/2 MV dysfunction
#Chronic HFrEF
#Recovered EF as of July 2023
I/O, daily weights
Continue Lasix 40 mg twice daily
#Anemia of chronic disease exacerbated by acute loss because of the surgery and LILIANA
IV iron given recent admission
1 unit of PRBCs transfused on October 29, 2023 with good improvement in Hgb
-H&H stable
#Paroxysmal Afib
-hep gtt discontinued, Eliquis resumed
-metoprolol succinate 37.5 mg twice daily
#CAD sp CABG and failed PCI
#Bioprosthetic MVR
-Continue metoprolol succinate 37.5 mg twice daily, atorvastatin 80 mg every afternoon
#Pulmonary HTN
#HLD
-Continue atorvastatin 80 mg every afternoon
#PAD s/p stenting
#Orthostatic hypotension hx
#DM type 2 with neuropathy
cont metformin glipizide on discharge
#Cholelithiasis without cholecystitis
Asymptomatic
#Intermittent hypercarbia, most likely MAGY hx recent admission
#Emphysematous changes on CT
#Mediastinal and perihilar lymphadenopathy
-outpatient sleep study
-pulmonology consult: Will also need repeated chest CT in 3-6months
DVT prophylaxis
Continue WOOL HAT FLANGER Eliquis
Full code
Medically stable for discharge home with home services and outpatient follow up recommendations.
Total Time Preparing Discharge ___50____ minutes including examination of the patient, summary of the hospital stay, instructions for continuing care to all relevant caregivers; and preparation of discharge records, prescriptions, and referral
forms if necessary.
Anticipated Discharge: Today
Subjective/Interval History
-
Date of Service: November 08, 2023
Seen and examined at bedside in no acute distress sitting up comfortably in bed. Reports feeling well. Tolerating diet. Endorses diarrhea but otherwise eager to go home.
Objective Data
-
Labs:
Laboratory Results
11/07/23 11/08/23 11/08/23
21:44 04:54 06:00
WBC Pending
Hgb Pending
Hct Pending
Plt Count Pending
APTT 116.4 H 123.1 H
Sodium Pending
Potassium Pending
Chloride Pending
Carbon Dioxide Pending
BUN Pending
Creatinine Pending
Glucose Pending
Calcium Pending
Total Bilirubin Pending
AST Pending
ALT Pending
Alkaline Phosphatase Pending
11/08/23
11:30
WBC
Hgb
Hct
Plt Count
APTT Pending
Sodium
Potassium
Chloride
Carbon Dioxide
BUN
Creatinine
Glucose
Calcium
Total Bilirubin
AST
ALT
Alkaline Phosphatase
Vital Signs:
Vital Signs
Temp Pulse Resp BP Pulse Ox
97.8 F 67 18 96/58 96
11/08/23 07:32 11/08/23 07:32 11/08/23 07:32 11/08/23 07:32 11/08/23 07:32
I&O
11/07/23 11/08/23 11/09/23
06:59 06:59 06:59
Intake Total 970 / 970 1368 / 1368 736 / 736
Output Total 410 / 410 220 / 220 850 / 850
Balance 560 / 560 1148 / 1148 -114 / -114
[2023-11-08] MEDS: NOVOLOG FLEXPEN-LOW RESISTANCE SC ×2 (07:46→16:59)
[2023-11-08] MEDS: FLORASTOR 250 MG PO (07:46)
[2023-11-08] MEDS: NEURONTIN 600 MG PO ×2 (07:48→15:26)
[2023-11-08] MEDS: TOPROL XL PO (07:48)
[2023-11-08] MEDS: GLUCOPHAGE 1000 MG PO (07:49)
[2023-11-08] MEDS: LASIX 40 MG PO ×2 (07:49→15:26)
[2023-11-08 09:12] LABS: ALT (SGPT) 16 U/L (0-50); AST (SGOT) 25 U/L (17-59); Alkaline Phosphatase 93 U/L (38-126); Blood Urea Nitrogen 8 mg/dl (9-20); Calcium 8.7 mg/dl (8.4-10.2); Carbon Dioxide 28 mmol/L (22-30); Chloride 99 mmol/L (98-107); Estimated Creatinine Clearance 68 ml/min; Glucose 142 mg/dl (70-99); Phosphorus 3.6 mg/dl (2.5-4.5); Potassium 4.4 mmol/L (3.5-5.1); Sodium 138 mmol/L (135-145); Total Bilirubin 0.6 mg/dl (0.2-1.3); eGFR > 60.00
[2023-11-08 09:14] LABS: % Basophils 0.8 % (0-2); % Eosinophils 6.9 % (0-6); % Immature Granulocytes 0.9 % (0-0.5); % Lymphocytes 14.2 % (20.5-51.1); % Monocytes 6.7 % (1.7-9.3); % Neutrophils 70.5 % (42.2-75.2); Absolute Basophils 0.1 10^3/uL (0-0.2); Absolute Eosinophils 0.8 10^3/uL (0-0.7); Absolute Immature Granulocytes 0.1 10^3/uL (0-0.05); Absolute Lymphocytes 1.7 10^3/uL (1.2-3.4); Absolute Monocytes 0.8 10^3/uL (0.1-0.6); Absolute Neutrophils 8.2 10^3/uL (1.4-6.5); Hematocrit 27.4 % (39.0-52.0); Hemoglobin 9.1 g/dL (13.0-18.0); Mean Corp Hgb Conc. 33.2 g/dL (33.0-37.0); Mean Corpuscular Hgb 28.1 pg (27.0-31.0); Mean Corpuscular Volume 84.6 fL (80.0-94.0); Mean Platelet Volume 10.9 fL (7.4-10.4); Nucleated Red Blood Cells % 0 % (-); Platelet Count 216 10^3/uL (130-400); Red Blood Cell Count 3.24 10^6/uL (4.70-6.10); White Blood Cell Count 11.6 10^3/uL (4.8-10.8)
[2023-11-08 09:24] LABS: Albumin 3.2 g/dl (3.5-5.0); Total Protein 6.1 g/dl (6.3-8.2)
[2023-11-08] MEDS: ELIQUIS 5 MG PO (09:41)
[2023-11-08] MEDS: ROXICODONE 10 MG PO ×2 (09:49→15:31)
--- NOTE | 2023-11-08 10:47 | W.PN.PUL3 ---
Today's Communication / Plan
-
Follow-up thoracentesis micro (NGTD) and cytopathology (pending)
Antibiotics per ID --> DC home on Augmentin, last dose of Zosyn this AM
Low residue diet --> ADAT
Monitor for pleural fluid reaccumulation - this AM shows minimal R-sided pleural effusion - would recommend repeating imaging as an outpatient
Colorectal and vascular surgical consultations noted
Outpatient follow-up with our office will be arranged s/p discharge
Patient is being prepared for discharge home today. Pulmonary service will now sign off. Please reconsult if there are any additional questions/concerns, or if patient's respiratory status deteriorates.
Assessment
-
73-year-old male former smoker with a history of CAD/CABG and ventricular tachycardia status post ICD placement 10/26/2023 in addition to heart failure, mitral valve replacement, PAD, diabetes and ischemic colitis status post right colectomy
presented with increasing shortness of breath and noted to have a right pleural effusion-pulmonary consulted for right pleural effusion 11/05/2023.
Impression:
Right pleural effusion likely due to severe right-sided colitis (seen on CT A/P from 11/04/2023); he also has valvular heart disease with risk factors for acute decompensated heart failure
- Of note, right sided pleural fluid has been present in at least a mild amount since CT A/P on 10/12/2023
Shortness of breath - resolved s/p thoracentesis
Leukocytosis
Anemia
Hyperglycemia (mild) - normalized
Right-sided colitis
Conditions present prior to admission:
CAD/CABG/PCI.
V. tach 10/2023 status post ICD placement 10/26/2023.
CHF reduced EF-was 15% now 68%
Bioprosthetic MVR.
COPD with centrilobular [id number]-year smoker quit 2007
PAD status post right femoral endarterectomy and right SFA stent.
TIA.
Left CEA.
PAF on Eliquis.
Diabetes.
Diabetic neuropathy.
Hypertension.
Pulm hypertension.
Prostate cancer.
Bladder cancer
Chronic opioid-induced constipation.
Marijuana use for pain
Acute colitis status post right colectomy 10/14/2023 CABG. MVR-bioprosthetic 02/2014. Left CEA 2022. Left shoulder surgery. Prostatectomy. Amputation left great toe.
DNR in the past
Plan
Mild respiratory decompensation related to small to moderate right pleural effusion
- Respiratory status has markedly improved since thoracentesis on 11/04 (800cc of transudative fluid removed)
- Follow up micro (NGTD) and cytopathology (pending)
Keep SpO2 88-95%
Aspiration precautions
Incentive spirometry encouraged 10x per hour for at least 4 hrs a day
Nebulizers if needed-currently not bronchospastic
Reviewed previous hospitalization and pulmonary's recommendations for follow-up
Outpatient pulmonary office tried to arrange for thoracentesis ---> Patient never followed up in the office
Right thoracentesis 11/05/23--800 mL, pH 7.5, WBC 442, total protein less than 2.0, LDH 102, glucose 143
Monitor colitis
Monitor leukocytosis
Antibiotics initiated - Augmentin starte today s/p Zosyn (started 11/03, last dose this AM); this should cover pulmonary infiltrates as well (MRSA screen negative)
ID on board --> recs appreciated
Colorectal surgical consult-correspondence reviewed-no plans for emergent surgery, bowel rest, antibiotics and enemas as needed
Heparin gtt stopped as he is being prepaared for discharge home, and resumed Eliquis this AM
Vascular surgery also saw patient 11/05/2023-recommended medical therapy, due to extensive plaque burden making options limited for Endo or open revascularization, if no relief then consider performing angiogram to see if there is flow channel to the
SMA to perform endovascular intervention; he doubts patient has chronic mesenteric ischemia
DVT prophylaxis - NOAC restarted today
Nutrition per GI
Early mobilization
Saw Dr. Pascula during last admission and plan was to have televisit the following week and set up a right-sided thoracentesis-he did not [id number] was attempted to be arranged as an outpatient-recommend follow-up after this
hospitalization
Patient is being prepared for discharge home today. Pulmonary service will now sign off. Thank you for allowing us to be involved in the care of this patient. Please reconsult if there are any additional questions/concerns, or if patient's
respiratory status deteriorates.
Total time spent today was 25 minutes for this encounter. Time includes reviewing laboratory test/imaging results, reviewing pertinent medical records, obtaining and reviewing medical history, performing an appropriate exam, ordering medications,
tests and procedures. Time also includes documentation of this encounter, coordinating patient care and communicating with other healthcare professionals. Total time does not include separately billed tests performed on this date of service.
Diagnostic data:
Chest x-ray 03/03/2023: No active disease
Chest x-ray 11/04/2023-small right pleural effusion
Chest x-ray 11/08/2023 - Tiny right pleural effusion (new)
CT abdomen and pelvis 11/04/2023-severe uncomplicated right-sided colitis, small to moderate right pleural effusion, infectious inflammatory bronchiolitis throughout left lung
Ultrasound chest 11/04/2023-moderate pleural effusion
Echo 10/23/2023: Normal biventricular function, EF 68%, mitral valve gradients have worsened, moderate MR, PA pressure 78, worsened
Echocardiogram 09/01/2022: EF 50%, bioprosthetic mitral valve, aortic sclerosis, normal right heart, cannot measure right heart pressures
Cardiac catheterization 01/23/2020-left main and three-vessel CAD occlusion, patent sequential SVG to diagonal OM PDA and collaterals to LAD, known occluded QUIÑONES to LAD, anterolateral wall hypokinesis
Subjective Data
-
Date of Service:
Date of Service: November 08, 2023
Chief Complaint: Pulmonary Follow Up and Dyspnea Follow Up
Subjective:
Patient seen and evaluated today at bedside. Endorses watery diarrhea. Denies shortness of breath. On room air breathing comfortably, saturating 97%. He denies headache, chest pain, nausea, fevers or chills, although he does have generalized
abdominal pain.
Review of Systems
General: Other (Negative unless mentioned above)
Objective Data
Data Reviewed
Vital Signs / I&O / Oxygen:
Vital Signs
Temp Pulse Resp BP Pulse Ox
97.8 F 67 18 96/50 96
11/08/23 07:32 11/08/23 07:48 11/08/23 07:32 11/08/23 07:48 11/08/23 07:32
Intake and Output
11/07/23 11/08/23 11/09/23
06:59 06:59 06:59
Intake Total 970 / 970 1368 / 1368 736 / 736
Output Total 410 / 410 220 / 220 850 / 850
Balance 560 / 560 1148 / 1148 -114 / -114
SaO2 96
Nasal Cannula flow liters per 2
minute
Physical Exam
General: Respiratory Distress (n), Comfortable, Chills (n) and Sweats (n)
HEENT: Normocephalic, Anicteric and Moist Mucous Membranes
Cardiovascular: Regular Rhythm
Respiratory: Clear, Wheeze (n), Crackles (negative), Rhonchi (n), Non-Labored Respirations, Accessory Resp Muscle Use (n) and Stridor (n)
GI: Soft, Non Distended, Tender (Mild without rebound or guarding) and Normal Bowel Sounds
Neurology: AO x 3 and Tremors (n)
Skin: Warm, Dry, Cyanosis (n), Jaundice (n) and Rash (n)
Labs/Micro/Reports
Lab Data
11/08/23 08:28
11/08/23 08:28
Laboratory Results
11/07/23 11/07/23 11/08/23
14:28 21:44 04:54
APTT 85.3 H 116.4 H 123.1 H
Microbiology
11/05/23 14:14 Pleural Fluid Body Fluid Culture - Preliminary
No Growth After 48 Hours
11/05/23 14:14 Pleural Fluid Gram Stain - Preliminary
11/06/23 22:40 Feces/Stool C. difficile GDH Antigen & Toxins - Final
Negative for toxigenic C.difficile
11/05/23 03:22 Nose MRSA Screen - Final
No Methicillin Resistant Staphylococcus aureus isolated.
11/05/23 14:14 Pleural Fluid Fungal Culture - Preliminary
Culture in progress.
Positive cultures are reported as soon as detected.
Final report to follow in four to five weeks.
[2023-11-08] MEDS: AUGMENTIN 875 MG/125 MG 1 TABLET PO (11:10)
[2023-11-08 11:50] LABS: Glucose - Point of Care 163 mg/dl (70-99)
[2023-11-08 11:52] VITALS: BP 132/65
[2023-11-08 12:16] LABS: APTT 37.6 Sec (23.4-35.0)
--- NOTE | 2023-11-08 12:33 | W.PN.ID1 ---
Date of Service
Date of Service: November 08, 2023
Today's Communication
Transition to Augmentin.
Assessment / Plan
Chronic leukocytosis
- improved today
Right-sided colitis
- felt to most likely be ischemic
Diarrhea
DM-II with Neuropathy
Chronic HFpEF
Chronic hypotension
COPD
Bioprosthetic MVR
CAD s/p CABG
Paroxysmal Atrial Fibrillation
Recommendations:
Culture is negative.
C. difficile testing negative
Transition to Augmentin 875 mg p.o. twice daily for an additional 5 days.
����������������������������������������������������������
Chief Complaint
-: Other (Abdominal pain)
Subjective / Review of Systems
Review of Systems: No Fever, No Chills, No Abdominal Pain, Diarrhea and No Dysuria
Vital Signs / Physical Exam
Vital Signs
Vital Signs
Temp Pulse Resp BP Pulse Ox
97.7 F 74 17 132/65 97
11/08/23 11:52 11/08/23 11:52 11/08/23 11:52 11/08/23 11:52 11/08/23 11:52
Physical Exam
Constitutional: No Acute Distress, Comfortable, Chronically Ill and Non-toxic
Eyes: Sclera Anicteric
Pulmonary: Non Labored
Gastrointestinal: Soft, Non Tender, Non Distended and Normal Bowel Sounds
Neurological: Awake and Alert
Psychological: Calm
Objective Data
Lab Data
Lab Results
11/08/23 08:28
11/08/23 08:28
APTT 37.6 Sec (23.4-35.0) H 11/08/23 11:48
Estimated Creat Clear 68 ml/min 11/08/23 08:28
Total Bilirubin 0.6 mg/dl (0.2-1.3) 11/08/23 08:28
AST 25 U/L (17-59) 11/08/23 08:28
ALT 16 U/L (0-50) 11/08/23 08:28
Alkaline Phosphatase 93 U/L (38-126) 11/08/23 08:28
C-Reactive Protein 84.60 mg/L (0.0-10.00) H 11/06/23 06:53
Most recent labs reviewed.
Micro Results:
11/05/23 14:14 Body Fluid Culture - Final
Pleural Fluid No Growth After 72 Hours
Gram Stain - Final
11/06/23 22:40 Salmonella/Shigella Culture - Preliminary
Feces/Stool Culture in Progress
Campylobacter Culture - Preliminary
Culture in Progress
Shiga Toxin Test - Pending
11/06/23 22:40 C. difficile GDH Antigen & Toxins - Final
Feces/Stool Negative for toxigenic C.difficile
11/05/23 03:22 MRSA Screen - Final
Nose No Methicillin Resistant Staphylococcus aureus isolated.
11/05/23 14:14 Fungal Culture - Preliminary
Pleural Fluid Culture in progress.
Positive cultures are reported as soon as detected.
Final report to follow in four to five weeks.
11/05/23 14:14 Acid Fast Bacilli Smear - Pending
Pleural Fluid Acid Fast Bacilli Culture - Pending
Imaging:
11/04/2023 CT abdomen/pelvis: Severe uncomplicated right-sided colitis is noted which is either infectious or inflammatory in etiology. There is a small moderate right pleural effusion. There is also infectious/inflammatory bronchiolitis throughout
the left lower lobe. Please see full dictation for additional detail.
Care Review
Plan reviewed with: Physician (Hospitalist)
[2023-11-08] MEDS: NOVOLOG FLEXPEN-LOW RESISTANCE 1 UNITS SC (12:51)
[2023-11-08] MEDS: IMODIUM 2 MG PO (14:28)
[2023-11-08 14:49] VITALS: BP 127/57
--- NOTE | 2023-11-08 16:31 | W.DCSUMMARY ---
Discharge Summary
Discharge Data
Date of Admission: 11/04/23
Date of Discharge: 11/08/23
-
Pending Results: Yes
Additional Pending Results:
pathology results
Discharge Plan
-
Patient Disposition: Home with Home Care
Discharge Diagnosis/Procedures: Right Pleural Effusion Status Post Thoracentesis
Acute right sided colitis ischemic vs infectious
Leukocytosis suspected due to infection, resolving
Chronic Opioid Induced Constipation
Opioid Dependence
Chronic Heart Failure with Reduced Ejection Fraction
Anemia
Atrial Fibrillation
Coronary Artery Disease status post CABG
Bioprosthetic Mitral Valve replacement
Pulmonary Hypertension
Hyperlipidemia
Peripheral Artery Disease
Diabetes with neuropathy
Condition: Fair
Diet: Low Residue
Activity: As tolerated
Driving Restrictions: Not until seen by your Dr
Bathing Restrictions: None
Blood Work: Please repeat CBC with primary care provider in 1 week of discharge
Others Tests: Please repeat Chest X-ray with primary care provider or pulmonology in 2 weeks of discharge.
Please repeat CT chest with primary care provider or pulmonology in 3-6 months
Other Services: PT and OT
Specialty Instructions: Weigh Daily- Call MD for wt gain/loss 3 lbs overnight/5 lbs in 1 week
Activity Restrictions/Additional Instructions:
Please follow up with primary care provider in 1 week of discharge, colorectal surgeon in 2 weeks of discharge. pulmonology in 2-3 weeks of discharge, and Vascular Surgeon in 1 month of discharge.
For possible infectious colitis you've been prescribed Augmentin for 5 more days.
Probiotic has also been prescribed to promote gut health while on antibiotics. This is available over the counter.
Imodium has been prescribed as needed for diarrhea.
It is recommended that you continue to hold your laxatives until diarrhea resolves.
Please take medications as prescribed/recommended and follow up with primary care provider and/or other healthcare provider involved in your care for refills and/or further adjustment to your medication regimen as necessary.
Referrals:
Kyler Pascual MD [Active] - in two to three weeks (or PROGRAM PL[employer]NER)
Stanton Pettit MD [Active] - in one month
Sivakumar Patel MD [Family Provider] - in one week
Eyal Kerr MD [Active] - in two weeks
Prescriptions:
New
loperamide 2 mg Capsule
2 mg PO Q6HPRN PRN (Reason: diarrhea) Qty: 12 0RF
amoxicillin-pot clavulanate 875-125 mg Tablet
1 tab PO Q12 5 Days Qty: 10 0RF
Saccharomyces boulardii 250 mg Capsule
250 mg PO DAILY 5 Days Qty: 5 0RF
Continued
atorvastatin 80 MG tablet
80 mg PO QPM
gabapentin 600 mg Tablet
600 mg PO TID
zolpidem 5 mg Tablet
5 mg PO HSPRN PRN (Reason: sleep)
Patient Comments:
11/04/2023: last filled 06/01/23, 30 tabs for 30 days from [facility]#[id number]
acetaminophen 325 mg Tablet
650 mg PO Q4HPRN PRN (Reason: mild pain/BRAVO/temp> 100.4F) Qty: 100 0RF
oxycodone 10 mg tablet
10 mg PO Q6H PRN (Reason: Pain)
Patient Comments:
11/04/2023: last filled 10/16/23, 120 tabs for 30 days from [facility]
glipizide 2.5 MG tablet extended release 24hr
2.5 mg PO QPM Qty: 0 0RF
metformin 1,000 MG tablet
1,000 mg PO BID Qty: 0 0RF
morphine 15 mg tablet extended release
15 mg PO Q8H
Patient Comments:
11/04/2023: last filled 10/16/23, 90 tabs for 30 days from [facility]
furosemide 40 mg Tablet
40 mg PO BID AT 0800,1600 Qty: 60 0RF
Eliquis 5 mg tablet
5 mg PO BID Qty: 60 1RF
Patient Comments:
10/12/23: patient states he gets free samples
midodrine 5 mg Tablet
5 mg PO TIDPRN PRN (Reason: dizziness) Qty: 10 0RF
metoprolol succinate 25 mg Tablet Extended Release 24 Hr
37.5 mg PO BID Qty: 90 1RF
Held
docusate sodium 100 mg Capsule
100 mg PO BID Qty: 0 0RF
Hold Instructions: Hold until Diarrhea resolves
polyethylene glycol 3350 [HealthyLax] 17 gram powder in packet
17 g PO DAILY Qty: 0 0RF
Hold Instructions: hold until diarrhea resolves
lactulose 20 gram/30 mL Solution
20 g PO DAILY Qty: 1200 1RF
Hold Instructions: Hold until diarrhea resolves
Discharge Orders:
Discharge Patient (As Directed); Ordered 11/08/23
Ordered By: Roberto James
Discharge Date and Time
Print Language: PORTUGUESE
[2023-11-10 20:17] LABS: Calprotectin, Fecal 108 ug/g (<=49)
== END 2023-11-08 17:00 | disposition home health service (06) | DRG 394 ==
LOC: 3 WEST ACU 20:53
PROVIDERS: Clinical Nurse Specialist Family Health; Emergency Medicine; Internal Medicine Critical Care Medicine; Physician Assistant; Radiology Diagnostic Radiology; Surgery; ADMITTING PHYSICIAN Student in an Organized Health Care Education/Training Program; ATTENDING PHYSICIAN Internal Medicine; CONSULT PHYSICIAN Internal Medicine Critical Care Medicine; CONSULT PHYSICIAN Internal Medicine Infectious Disease; CONSULT PHYSICIAN Surgery; CONSULT PHYSICIAN Surgery Vascular Surgery; EMERGENCY PHYSICIAN Student in an Organized Health Care Education/Training Program; FAMILY PHYSICIAN Family Medicine
PROC: 0W993ZZ Drainage of Right Pleural Cavity, Percutaneous Approach (ICD-10-PCS; 2023-11-04)
DX: K55.039 Acute (reversible) ischemia of large intestine, extent unspecified (principal); I47.20 Ventricular tachycardia, unspecified; J21.9 Acute bronchiolitis, unspecified; J90 Pleural effusion, not elsewhere classified; I50.22 Chronic systolic (congestive) heart failure; R64 Cachexia; Z68.1 Body mass index [BMI] 19.9 or less, adult; T40.2X5A Adverse effect of other opioids, initial encounter; K59.03 Drug induced constipation; I11.0 Hypertensive heart disease with heart failure; D63.8 Anemia in other chronic diseases classified elsewhere; I48.0 Paroxysmal atrial fibrillation; I25.10 Atherosclerotic heart disease of native coronary artery without angina pectoris; E78.00 Pure hypercholesterolemia, unspecified; E11.40 Type 2 diabetes mellitus with diabetic neuropathy, unspecified; Z79.84 Long term (current) use of oral hypoglycemic drugs; Z79.01 Long term (current) use of anticoagulants
CPT/HCPCS: 88305; 32555; 71045; 71046; 74177; 76604; 80053; 82945; 82962; 83615; 83735; 83880; 83986; 83993; 84100; 84157; 85025; 85730; 86140; 87015; 87045; 87046; 87070; 87102; 87116; 87205; 87324; 87427; 87449; 87811; 88112; 89051; 93005; 96365; 97116; 97163; 97167; 99285; Q9967

== ENCOUNTER → 2023-11-20 14:08 | Outpatient (REF) | payer MEDICARE, OTHER, SELFPAY | LOC: HWRAD 14:08 | PROVIDERS: ATTENDING PHYSICIAN Internal Medicine Critical Care Medicine; FAMILY PHYSICIAN Family Medicine | DX: J90 Pleural effusion, not elsewhere classified (principal) | CPT/HCPCS: 71046 ==

== ENCOUNTER → 2023-11-20 17:09 | Outpatient (REF) | payer MEDICARE, OTHER, SELFPAY ==
[2023-11-20 17:30] LABS: % Basophils 0.8 % (0-2); % Immature Granulocytes 0.6 % (0-0.5); % Lymphocytes 13.4 % (20.5-51.1); % Monocytes 8.3 % (1.7-9.3); % Neutrophils 73.9 % (42.2-75.2); Absolute Basophils 0.1 10^3/uL (0-0.2); Absolute Eosinophils 0.3 10^3/uL (0-0.7); Absolute Immature Granulocytes 0.1 10^3/uL (0-0.05); Absolute Lymphocytes 1.3 10^3/uL (1.2-3.4); Absolute Monocytes 0.8 10^3/uL (0.1-0.6); Absolute Neutrophils 6.9 10^3/uL (1.4-6.5); Hematocrit 28.8 % (39.0-52.0); Hemoglobin 9.2 g/dL (13.0-18.0); Mean Corp Hgb Conc. 31.9 g/dL (33.0-37.0); Mean Corpuscular Hgb 26.9 pg (27.0-31.0); Mean Corpuscular Volume 84.2 fL (80.0-94.0); Mean Platelet Volume 12.1 fL (7.4-10.4); Nucleated Red Blood Cells % 0 % (-); Platelet Count 250 10^3/uL (130-400); Red Blood Cell Count 3.42 10^6/uL (4.70-6.10); Red Cell Dist. Width 16.3 % (11.5-14.5); White Blood Cell Count 9.3 10^3/uL (4.8-10.8)
== END ==
LOC: CLAB 17:09
PROVIDERS: ATTENDING PHYSICIAN Family Medicine
DX: D64.9 Anemia, unspecified (principal)
CPT/HCPCS: 36415; 85025

== ENCOUNTER → 2023-11-30 06:50 | Outpatient (REF) | payer MEDICARE, OTHER, SELFPAY ==
[2023-11-30 07:30] VITALS: BP 103/66; BP_SYST 72
[2023-11-30 08:14] VITALS: BP 106/60
== END ==
LOC: RADI 06:50
PROVIDERS: ATTENDING PHYSICIAN Internal Medicine Critical Care Medicine; FAMILY PHYSICIAN Family Medicine
DX: J90 Pleural effusion, not elsewhere classified (principal)
CPT/HCPCS: 32555; 88305; 71045; 88112

== ENCOUNTER 2023-12-02 13:12 | Inpatient (IN) | payer MEDICARE, OTHER, SELFPAY ==
[2023-12-02] VITALS (11 sets, daily range): BP systolic 68–130; BP diastolic 51–68; BMI 21.7; BMI 20.9
[2023-12-02 11:05] LABS: % Basophils 0.7 % (0-2); % Eosinophils 3.1 % (0-6); % Immature Granulocytes 0.5 % (0-0.5); % Lymphocytes 13.3 % (20.5-51.1); % Monocytes 6.1 % (1.7-9.3); % Neutrophils 76.3 % (42.2-75.2); Absolute Basophils 0.1 10^3/uL (0-0.2); Absolute Eosinophils 0.3 10^3/uL (0-0.7); Absolute Immature Granulocytes 0.1 10^3/uL (0-0.05); Absolute Lymphocytes 1.4 10^3/uL (1.2-3.4); Absolute Monocytes 0.7 10^3/uL (0.1-0.6); Absolute Neutrophils 8.2 10^3/uL (1.4-6.5); Hematocrit 32.7 % (39.0-52.0); Hemoglobin 10.7 g/dL (13.0-18.0); Mean Corp Hgb Conc. 32.7 g/dL (33.0-37.0); Mean Corpuscular Hgb 27.4 pg (27.0-31.0); Mean Corpuscular Volume 83.8 fL (80.0-94.0); Mean Platelet Volume 10.8 fL (7.4-10.4); Nucleated Red Blood Cells % 0 % (-); Platelet Count 206 10^3/uL (130-400); Red Cell Dist. Width 16.9 % (11.5-14.5); White Blood Cell Count 10.7 10^3/uL (4.8-10.8)
--- NOTE | 2023-12-02 11:09 | ED.GENMED ---
History of Present Illness
General
Chief Complaint: Breathing Problem
Time Seen by Provider: 12/02/23 10:43
History of Present Illness
History of Present Illness:
HPI: Patient presents with shortness of breath. He just had a right-sided thoracentesis here [place] 2 days ago. He is not normally on oxygen. He had an AICD placed a few weeks ago and came in by ambulance today. He has no significant cough
and no fevers. He did not have any weight gain and actually lost 2 pounds recently.
EXAM:
GENERAL: Appears somewhat weak and debilitated, room air sat 88% with good waveform
HEENT: Moist oral mucosa
CARDIOVASCULAR: No murmurs, normal heart rate, regular rhythm, No chest wall tenderness
PULMONARY: No respiratory distress, breath sounds slightly decreased at the bases right greater than left
ABDOMEN: Soft with no peritoneal signs, no tenderness
NEUROLOGIC: Excellent strength all extremities, no coordination deficits
PSYCHIATRIC: Appropriate mental status, normal insight and judgement
EXTREMITIES: Nontender, no edema, moves all extremities equally
SKIN: Appears pale
TIME OF INITIAL ENCOUNTER: 11:15 AM
NUMBER AND COMPLEXITY OF PROBLEMS ADDRESSED AT THE ENCOUNTER
� Chronic conditions affecting care: CHF, CAD status post CABG and failed PCI, bioprosthetic MVR
� Acute Exacerbation and/or Progression of Chronic Illness: This is an acute problem
� Differential Diagnosis includes: Recurrence of pleural effusion, CHF, pneumonia, reactive airway disease
AMOUNT AND/OR COMPLEXITY OF DATA TO BE REVIEWED AND ANALYZED
� I performed an independent evaluation of and my interpretation is:
EKG: Sinus 68, normal axis, downgoing QRS and T wave in lead V3
CT:
X-rays: I personally viewed x-rays and read agree with radiologist interpretation of increased opacity at the right base with likely parapneumonic effusion
Laboratory Studies: White count 10.7, hemoglobin 10.7
Other:
� Review of other/old records: The patient was admitted here from 11/04/2023 through 11/08/2023. I reviewed discharge summary. He was suspected to have a small to moderate right-sided pleural effusion and left lower lobe
bronchiolitis. Earlier hemoglobin was 9
� Clinical information was obtained by an independent historian: I spoke to family member at bedside.
� Prescriptions/Medications Considered but not given:
� Further testing considered but not performed:
RISK OF COMPLICATIONS AND/OR MORBIDITY OR MORTALITY OF PATIENT MANAGEMENT
� Social determinants of health affecting care: Lives at home
� Discussion with other providers: Hospitalist for admission and they did arrange for thoracentesis
� Escalation of care including admission/observation vs risk of discharge considered: The patient's chest x-ray shows signs of pneumonia at the right base as well as parapneumonic effusion. White count at higher end of normal.
Giving HCAP coverage for possibility of pneumonia. As patient has 88% room air sat, will have patient admitted to the hospital.
Past History
Past History
ED Past Medical History: Arrthythmia (Atrial fib), CAD, Cancer (Prostate, Bladder), CHF, HTN, Hypercholesterolemia, NIDDM and Other (Diabetic neuropathy, Left foot drop, Frequent Syncope, Pericarditis, PVD, Numbness and tingling)
ED Past Surgical History: Cardiac (CABG with Mitral valve replaced), Orthopedic (Left Shoulder surgery), Urological (Prostatectomy) and Other (Amputation left great toe, Bypass left groin, Left fempop bypass. Left leg stent, )
Social History
Tobacco: Former smoker
Alcohol: None
Drug: None
Personal:
Living: with family
Employment: Employed
Family History
Family History: Hypertension
Phy Exam
Physical Exam
Physical Exam:
See HPI
Scores
Heart Failure Risk
Heart Failure Risk Score: Not Applicable
Course
Orders/Labs/Results
Orders:
Orders
12/02/23 10:39
Electrocardiogram (*1) Urgent
Reason for Study: Other
Other Reason for Exam: Respiratory Distress
Cardiac Monitoring- Treatment ONCE
EKG- Treatment ONCE
IV Insert/Care/Rem.- Treatment PRN
CR Chest - 2 Views Urgent
Comment:
Reason For Exam: respiratory distress
O2 Therapy [RESP] Urgent
Titrate/Wean O2 to maintain O2 sat greater than (%): 93
Special Instructions: TO MAINTAIN CONTINUOUS O2 SATS >/= 93%
Pulse Ox/cont/shift [RESP] Urgent
Quantity: 1
Special Instructions: continuous pulse ox
12/02/23 10:54
Complete Blood Count/With Diff Urgent
Comprehensive Metabolic Panel Urgent
NT-proBNP Urgent
12/02/23 11:54
Cefepime HCl [Maxipime] 1,000 mg IV NOW STA
12/02/23 12:15
Vancomycin [Vancocin] 1,500 mg 0.9% Sodium Chloride [Nss] 20 ml 0.9% Sodium Chloride 250 ml [Nss] 250 ml IV NOW
12/02/23 12:36
Procalcitonin Routine
PCT Algorithmm Indication: Respiratory
12/02/23 12:45
Consult Interventional Radiology [IRAD CONSULT] Routine
Consulting Provider: Arron Wilson
Was physician already notified: Yes
Reason for Consult/Procedure: thoracentesis
Acknowledgement that appropriate orders are entered: Yes
12/02/23 12:46
Consult Pulmonary [PULMONARY CONSULT] Routine
Consulting Provider: Hector Castro
Was physician already notified: Yes
Body Fluid Cell Count Routine
What is the Body Fluid: pleural fluid
Comment: post procedure
Body Fluid Glucose Routine
Fluid Source: Pleural
Body Fluid LDH Routine
Fluid Source: Pleural
Body Fluid Protein Routine
Fluid Source: Pleural
Body Fluid pH Routine
Fluid Source: Pleural
Fluid Culture with Gram Stain Routine
NOHEMY Source: Pleural Fluid
Specimen Description:
Comment: post procedure
IRAD Cytology Routine
Source: Pleural Fluid, Right
Clinical Impression: recurrrent effusion
12/02/23 12:50
Admit/Transfer Patient As Directed
Co-Sign Provider:
Level of Care: Inpatient admission
Assign to:: Telemetry
Physician / Group: Thania Dozier
Diagnosis: Recurrent Right Pleural Effusion
Reason for Telemetry: Chest Pain syndromes
Date to Stop Telemetry: 12/04/23
Time to Stop Telemetry: 11:00
Reason for Hospitalization: hypoxic respiratory insufficiency
Expected length of stay greater than two midnights?: Yes
ELOS- Estimated Length of Stay in days: 3
I certify the patient meets the requirements for IP care: Yes
PRN Pain Medication Management As Directed
May give lesser potent ordered pain med per pt: Yes
preference::
Protocol:: Medication orders for pain may be administered in a
manner that supports deferring to patient preference
when the pt is:
- Requesting an ordered lesser potent pain medication.
Least to most potent pain medications are defined
as: acetaminophen < NSAID < tramadol < opioids
(morphine, oxycodone, hydromorphone).
- Requesting a lesser dose of the same medication IF
ORDERED.
- Requesting a less intrusive route of administration
if both routes are prescribed by the provider (PO <
IV).
12/02/23 12:52
Code Status As Directed
Resuscitation Status: Do not resuscitate
Reached after discussion with pt or family/Healthcare POA: Yes
DNR Bracelet Application ONCE
12/02/23 13:01
Consult Cardiology [CARDIOLOGY CONSULT] Routine
Consulting Provider: Mario Dao
Was physician already notified: Yes
12/04/23 11:00
DC Protocol for Telemetry ONCE
Abnormal Lab Results
12/02/23
10:54
RBC 3.90 L 10^6/uL
(4.70-6.10)
Hgb 10.7 L g/dL
(13.0-18.0)
Hct 32.7 L %
(39.0-52.0)
MCHC 32.7 L g/dL
(33.0-37.0)
RDW 16.9 H %
(11.5-14.5)
MPV 10.8 H fL
(7.4-10.4)
Abs Immat Gran (auto) 0.1 H 10^3/uL
(0-0.05)
Absolute Neuts (auto) 8.2 H 10^3/uL
(1.4-6.5)
Absolute Monos (auto) 0.7 H 10^3/uL
(0.1-0.6)
Neutrophils % 76.3 H %
(42.2-75.2)
Lymphocytes % 13.3 L %
(20.5-51.1)
Glucose 115 H mg/dl
(70-99)
Total Protein 6.2 L g/dl
(6.3-8.2)
12/02/23 10:54
12/02/23 10:54
Vital Signs
Initial and Last Documented VS:
Initial Vital Signs
Temp Pulse Resp BP Pulse Ox
97.7 F 71 13 124/62 99
12/02/23 10:45 12/02/23 10:45 12/02/23 10:45 12/02/23 10:45 12/02/23 10:45
Last Documented Vital Signs
Temp Pulse Resp BP Pulse Ox
97.8 F 71 10 91/51 100
12/02/23 13:25 12/02/23 13:25 12/02/23 13:25 12/02/23 13:25 12/02/23 13:25
*Critical Care Note
Total Time (30-74mins, 75-104mins- exclusive of procedures): Not Applicable
ED Attending Note
-
Portions of this chart may have been created with voice recognition software.� Occasional wrong word or��sound alike� substitutions may have occurred due to the inherent limitations of voice recognition software.
Discharge Plan
Departure
Patient Disposition: Admit
Date of Disposition: 12/02/23
Time of Disposition: 12:11
Presentation/result/management discussed w/ accepting MD/DO: Hospitalist
Discharge Problem:
Pneumonia
Interventions
Interventions:
*Risk Screen - Suicide Last Done: 12/02/23 10:45
*General Assessment Last Done: 12/02/23 10:45
*Neglect/Abuse Screening Last Done: 12/02/23 10:45
ED- Fall Risk Assessment Last Done: 12/02/23 10:45
*ED COVID-19 Vaccine History Last Done: 12/02/23 10:45
ED- Cardiac Assessment Last Done: 12/02/23 10:45
ED- Pulmonary Assessment Last Done: 12/02/23 10:45
[2023-12-02 11:30] LABS: ALT (SGPT) 18 U/L (0-50); AST (SGOT) 23 U/L (17-59); Albumin 3.6 g/dl (3.5-5.0); Alkaline Phosphatase 106 U/L (38-126); Blood Urea Nitrogen 20 mg/dl (9-20); Calcium 8.9 mg/dl (8.4-10.2); Carbon Dioxide 27 mmol/L (22-30); Chloride 101 mmol/L (98-107); Estimated Creatinine Clearance 80 ml/min; Glucose 115 mg/dl (70-99); Potassium 3.8 mmol/L (3.5-5.1); Sodium 140 mmol/L (135-145); Total Bilirubin 1.3 mg/dl (0.2-1.3); Total Protein 6.2 g/dl (6.3-8.2); eGFR > 60.00
[2023-12-02 11:35] LABS: NT-proBNP 4480 pg/ml
[2023-12-02] MEDS: MAXIPIME 1000 MG IV (12:05)
--- NOTE | 2023-12-02 12:10 | HPS.HSE ---
Addendum entered and electronically signed by Thania Dozier MD 12/02/23 13:08:
*Although CXR reports pneumonia, symptoms seem to be more likely all 2/2 effusion as patient without systemic signs of infection
-procal ordered
Original Note:
Family Physician
-
Family Physician: Sivakumar Patel
Chief Complaint
-
shortness of breath
History of Present Illness
Mr. Herrera Angel is a 73 yo man with hx CAD s/p PCI and CABG, bioprosthetic MVR, cardiomyopathy with improved EF, hx TIA, left carotid stenosis s/p CEA 03/07, PAD s/p right SFA and popliteal [employer] and stent 11/02, paroxysmal afib on Eliquis, HTN,
COPD, DM2, admission 10/11-10/28 for ischemic colitis s/p right-sided colectomy on 10/13, VT s/p AICD on 10/26/23, recent admission 11/03-11/08/23 for colitis and right pleural effusion s/p thoracentesis (no e/o infection) presents to the ER with
increasing shortness of breath despite repeat thoracentesis two days ago.
Patient states that symptoms currently similar to how he was feeling pre thoracentesis. He has worsening shortness of breath. No fevers. No productive cough. No nausea/vomiting. No pain. He feels he can't take a deep breath.
He is eating and drinking OK, normal BM, no black or bloody stools. No chest pain. No rash. No LE swelling.
He weighs himself every day and does not gain weight despite 2L drained from thora.
Medical History
Past Medical History
Past Medical History: Reports Other
Additional Past Medical History:
CAD status post PCI/CABG,
V. tach 2023, ICD placement 10/26/2023
heart failure, bioprosthetic MVR
PAD status post right femoral endarterectomy and right SFA with stent
TIA, carotid stenosis status post left CEA
paroxysmal A-fib on Eliquis
DM2 with diabetic neuropathy
HTN, pulm HTN
prostate CA
former smoker
ischemic colitis status post right colectomy on 10/13
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
postop anemia
Pericarditis
Past Surgical History: Reports Other
Additional Past Surgical History:
Ischemic colitis status post right hemicolectomy 10/22/2023
Coronary artery bypass graft
Mitral valve replacement
Left shoulder surgery
Prostatectomy
Amputation of left great toe
Social History
Tobacco: Non-smoker
Alcohol: None
Drug: None
Personal:
Living: With Family
Employment: Retired
Family History
Family History: Not pertinent
Allergies / Home Medications
Allergies reflects when Allergies were last updated in [facility].
Home Medications with original date entered in [facility]
Allergy/Medication List:
Allergies
Allergy/AdvReac Type Severity Reaction Status Date / Time
fish derived Allergy SEAFOOD-HIV Verified 10/12/23 12:10
ES
Home Medications
atorvastatin 80 mg tablet 80 mg PO QPM High cholesterol 01/19/20
gabapentin 600 mg tablet 600 mg PO TID Pain 12/19/22
zolpidem 5 mg tablet 5 mg PO HSPRN PRN sleep 12/19/22
acetaminophen 325 mg tablet 650 mg (2 x 325 mg) PO Q4HPRN PRN mild pain/BRAVO/temp> 100.4F #100 tabs 12/22/22
oxycodone 10 mg tablet 10 mg PO Q6H PRN Pain 02/26/23
glipizide 2.5 mg tablet, extended release 24 hr 2.5 mg PO QPM Diabetes #0 tabs 02/27/23
metformin 1,000 mg tablet 1,000 mg PO BID Diabetes #0 tabs 02/27/23
morphine 15 mg tablet,extended release 15 mg PO Q8H Pain 07/18/23
apixaban 5 mg tablet (Eliquis) 5 mg PO BID Blood clot prevention/tx #60 tabs 07/23/23
docusate sodium 100 mg capsule 100 mg PO BID Constipation #0 caps 07/23/23
furosemide 40 mg tablet 40 mg PO BID AT 0800,1600 Fluid retention/Swelling #60 tabs 07/23/23
midodrine 5 mg tablet 5 mg PO TIDPRN PRN dizziness #10 tabs 07/23/23
polyethylene glycol 3350 17 gram oral powder packet (HealthyLax) 17 g PO DAILY constipation #0 ea 07/23/23
lactulose 20 gram/30 mL oral solution 20 g (30 mL) PO DAILY #1,200 mL 10/29/23
metoprolol succinate 25 mg tablet,extended release 24 hr 37.5 mg (1.5 x 25 mg) PO BID #90 tabs 10/29/23
Saccharomyces boulardii 250 mg capsule 250 mg PO DAILY 5 days #5 caps 11/08/23
amoxicillin 875 mg-potassium clavulanate 125 mg tablet 1 tab PO Q12 5 days #10 tabs 11/08/23
loperamide 2 mg capsule 2 mg PO Q6HPRN PRN diarrhea #12 caps 11/08/23
Review of Systems
-
History Source: Patient
A 12 point ROS was completed and negative except as noted: Yes
Physical Exam
Vital Signs
Vital Signs
Temp Pulse Resp BP Pulse Ox
97.7 F 69 14 98/63 93
12/02/23 10:45 12/02/23 11:45 12/02/23 11:45 12/02/23 11:41 12/02/23 11:52
Physical Exam
General: No Apparent Distress
HEENT: PERRLA
Respiratory: Other (decreased breath sounds right lung, no wheezing )
Cardiac: S1/S2 and Regular Rhythm
GI: Non Tender
Musculoskeletal: No Edema
Skin: Warm and Dry; No Rash
Neuro: AO x 3
Psych: Calm
Laboratory Results
-
12/02/23 10:54
12/02/23 10:54
Laboratory Results
Total Bilirubin 1.3 mg/dl (0.2-1.3) 12/02/23 10:54
AST 23 U/L (17-59) 12/02/23 10:54
ALT 18 U/L (0-50) 12/02/23 10:54
Alkaline Phosphatase 106 U/L (38-126) 12/02/23 10:54
Data Reviewed
-
Diagnostic Radiology: Report Reviewed by me
Lab Data: Labs Reviewed by me
Impression/Plan
-
Mr. Herrera Angel is a 73 yo man with hx CAD s/p PCI and CABG, bioprosthetic MVR with moderate stenosis, cardiomyopathy with improved EF, hx TIA, left carotid stenosis s/p CEA 03/07, PAD s/p right SFA and popliteal [employer] and stent 11/02, paroxysmal
afib on Eliquis, HTN, COPD, DM2, admission 10/11-10/28 for ischemic colitis s/p right-sided colectomy on 10/13, VT s/p AICD on 10/26/23, recent admission 11/03-11/08/23 for colitis and right pleural effusion s/p thoracentesis (no e/o infection) presents
to the ER with increasing shortness of breath despite repeat thoracentesis two days ago.
Triage VS: T 97.7, P 71, RR 13, BP 124/62, SpO2 99%
LABS: WBC 10.7, Hg 10.7, PLT 206, Na 140, K+ 3.8, Cl 101, CO2 27, Cr 0.9, Glucose 115, T. Bili 1.3, AST 23, ALT 18
CXR
IMPRESSION:
Worsening right lower lobe airspace opacities suspicious for progression of pneumonia. Interval increase in a small right pleural effusion, likely parapneumonic.
MAR: IV Vanc, Cefepime
Recurrent Right Pleural Effusion
-unclear etiology. Prior thoracentesis evaluation without e/o infection. Initial path negative for malignant cells (repeat 11/29 pending). Possibly related to heart failure and bioprosthetic MVR stenosis although patient without e/o overt systemic
heart failure
-admit to telemetry
-IR consult for repeat thora (qualified for Pleur-X?)
-Pulmonary consult
-I will also consult Cardiology as mitral valve dysfunction may be related to recurrent effusion
-fluid restriction, low salt diet
Coronary Artery Disease
Hx PCI and CABG
VT s/p AICD on 10/26/23
Bioprosthetic MVR with moderate stenosis noted and possible need for GLADIS/cath in future
Paroxysmal Atrial Fibrillation
Ischemic Cardiomyopathy with Recovered EF
-continue [employer] Eliquis 5mg PO BID
-[employer] Metoprolol 375 mg PO BID
-[employer] Lipitor 80mg PO qhs
-[employer] Lasix 40mg PO BID
Chronic Pain
Opiate Dependence
-[employer] Morphine, Oxycodone and Gabapentin - patient states takes all 3 at same timing throughout day: ordered for 7AM, 2PM and 10PM
Recent Admission for Ischemic Colitis
PAD s/p stenting
-[employer] Eliquis, Statin
DM2 with Neuropathy
-Hold [employer] Glipizide and Metformin for now - monitor BGL
-Diabetic Diet
-ISS
DVT PPx: [employer] Eliquis
DNR - confirmed on admissino
76 minutes spent on patient evaluation, medical decision making, coordination of care
[2023-12-02] MEDS: VANCOCIN 300 ML IV (12:31)
[2023-12-02] MEDS: VANCOCIN 300 MG IV (12:31)
[2023-12-02 13:21] LABS: Procalcitonin < 0.05 ng/ml (0.0-0.25)
[2023-12-02 14:28] LABS: Body Fluid pH 7.56
[2023-12-02 14:32] LABS: Body Fluid Mononuclear 79.8 %; Body Fluid Polymorphonuclear 20.2 %; Body Fluid WBC 243 /CUMM
[2023-12-02 14:33] LABS: Body Fluid Second Tech LD
[2023-12-02 14:46] LABS: Body Fluid Glucose 98 mg/dl; Body Fluid LDH < 90 U/L; Body Fluid Protein < 2.0 g/dl
[2023-12-02] MEDS: ROXICODONE 10 MG PO ×2 (15:02→22:15)
[2023-12-02] MEDS: MS CONTIN (EXTENDED RELEASE) 15 MG PO ×2 (15:02→22:16)
[2023-12-02] MEDS: LASIX 40 MG PO (15:02)
--- NOTE | 2023-12-02 15:02 | CON.CAR ---
Addendum entered and electronically signed by Mario Dao MD 12/02/23 18:10:
I saw and examined the patient.
The Director Of Assessment's note was reviewed and I agree with the note.
Comment:
GEN: No distress, awake, Ox3
HEENT: supple, anicteric, mmm
LUNGS: dec BS at bases
CV: Reg, S1/S2, 2/6 syst LSB, S3+
ABD: soft, BS+, NT/ND
EXT: No edema
NEURO: Gross non-focal
SKIN: No rash
plan:
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
hospitalized in October 2023 with colitis and ventricular tachycardia. During that hospitalization he had a colectomy and then subsequent dual-chamber ICD placed.
He returns to the hospital with further shortness of breath and continued acute on chronic heart failure with preserved ejection fraction. He has a recurrent right pleural effusion which required thoracentesis several days ago and another
thoracentesis today.
On last echo he had markedly elevated mitral valve gradients with a preserved ejection fraction. His mean gradient was 22 mmHg.
We will check a repeat echocardiogram to reevaluate his mitral valve. He may need a transesophageal echo to better evaluate his bioprosthetic valve.
If his gradients remain elevated he could be a candidate for redo mitral valve surgery.
Continue IV Lasix. He remains in sinus rhythm. Continue Toprol and Eliquis.
Will evaluate for Farxiga/Jardiance
Original Note:
Consultation
Consultation Request
Date/Time Consultation Requested: 12/02/23
Date/Time Consultation Performed: 12/02/23
Requesting Provider: Dr. Dozier
Performing Provider: Dr. Dao
Reason for Consultation: Acute HF, MR/MS
Medical History
-
History of Present Illness:
Patient came to [facility] today with increased SOB and has worsened right pleural effusion, he is being admitted with acute HF and cardiology has been consulted. Patient was admitted to twice in October with colitis and eventual right colectomy with
post-op ileus. While recovering from ileus he had sustained self-terminating VT. EF previously reduced, but was 68% by echo 10/23/23. He has a Medtronic DC ICD placed 10/26/23. He Toprol XL was continued. Patient was seen in the cardiology office
Thursday and was feeling well because he had an outpatient thoracentesis in that day for 2 L. He says that he started to feel SOB again today and came to [facility] where a CXR revealed recurrent right pleural effusion. He just returned to his ER room
for my HPI and reports 1.4 L removed form right lung and he again feels much better. Patient reports h/o recurrent pleural effusion and that he previously had a Pleurx in place. Patient has a previous CABG and tissue MVR from 02/2014. There was mild
to mod MR and moderate MS with mean gradient 22 mmHg by echo 10/23/23. No chest pain. No edema.
PMH:
Chronic HFpEF
Recurrent right pleural effusion
s/p thoracentesis for 2 L 11/30/23
Recent admission for colitis with right colectomy, VT and ICD placement 10/12/23 until 10/29/23 and 11/04/23 until 11/08/23
h/o Sustained monomorphic VT evening of 10/22/23 treated with s/p Medtronic DC ICD 10/26/23
Recovered CM: CM EF 15-20% by echo Jan 2020 with EF 30% by echo 04/20/19 with h/o recovered CM EF 65% by echo 05/2022, EF 53% by echo 07/20/23
CAD
s/p unsuccessful attempted PCI of LAD [employer] 03/07/16
CABG with occluded QUIÑONES to LAD by cath 2019, but patent SVG seq to Diag-OM-PDA 02/2014
s/p bioprosthetic MVR 02/2014
mod MS and mild to mod MR by echo 10/23/23
PAD
s/p right femoral endarterectomy and right iliac stenting 02/2016
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
possible TIA with noted L carotid stenosis s/p L CEA 03/03/23
Paroxysmal Afib
Chronic Eliquis OAC
HTN
Moderate to severe chronic obstructive pulmonary disease
DM2 with Diabetic neuropathy
Pulmonary HTN
Hx prostate cancer s/p surgery 2007
Medical marijuana use
former smoker
Past Medical History
Past Medical History: Other (in HPI)
Past Surgical History: Cardiac (CABG, mitral valve replacement) and Other (prostatectomy, L femoropopliteal bypass, L great toe amputation)
Social History
Tobacco: Former Smoker
Alcohol: None
Drug: None
Personal:
Living: With Family
Employment: Retired
Family History
Family History: CAD, Diabetes and Hypertension
Allergies / Home Medications
Allergy/AdvReac Type Severity Reaction Status Date / Time
vancomycin Allergy Mild Itching Verified 12/02/23 14:26
fish derived Allergy SEAFOOD-HIV Verified 10/12/23 12:10
ES
�Medication �Instructions �Recorded �Confirmed �Type
atorvastatin 80 mg tablet 80 mg PO QPM High cholesterol 01/19/20 12/02/23 History
gabapentin 600 mg tablet 600 mg PO TID Pain 12/19/22 12/02/23 History
zolpidem 5 mg tablet 5 mg PO HSPRN PRN sleep 12/19/22 12/02/23 History
oxycodone 10 mg tablet 10 mg PO QID 02/26/23 12/02/23 History
glipizide 2.5 mg tablet, extended 2.5 mg PO QPM Diabetes #0 tabs 02/27/23 12/02/23 Rx
release 24 hr
metformin 1,000 mg tablet 1,000 mg PO BID Diabetes #0 tabs 02/27/23 12/02/23 Rx
morphine 15 mg tablet,extended 15 mg PO Q8H Pain 07/18/23 12/02/23 History
release
apixaban 5 mg tablet (Eliquis) 5 mg PO BID Blood clot 07/23/23 12/02/23 Rx
prevention/tx #60 tabs
furosemide 40 mg tablet 40 mg PO BID AT 0800,1600 Fluid 07/23/23 12/02/23 Rx
retention/Swelling #60 tabs
midodrine 5 mg tablet 5 mg PO TIDPRN PRN dizziness #10 07/23/23 12/02/23 Rx
tabs
metoprolol succinate 25 mg 37.5 mg (1.5 x 25 mg) PO BID #90 10/29/23 12/02/23 Rx
tablet,extended release 24 hr tabs
Saccharomyces boulardii 250 mg 250 mg PO DAILY 5 days #5 caps 11/08/23 12/02/23 Rx
capsule
Medical Marijuana 2 puff inhalation DAILYPRN PRN 12/02/23 12/02/23 History
mild pains
docusate sodium 100 mg capsule 100 mg PO HS 12/02/23 12/02/23 History
(Colace)
lactulose 20 gram/30 mL oral 20 g PO DAILY 12/02/23 12/02/23 History
solution
Review of Systems
-
History Source: Patient and Family
All other systems: Negative unless noted
Physical Exam
Vital Signs
Temp Pulse Resp BP Pulse Ox
97.7 F 74 18 130/68 100
12/02/23 14:39 12/02/23 14:39 12/02/23 14:39 12/02/23 14:39 12/02/23 14:39
GEN: NAD. AAOx3
HEENT: EOMI, MMM
LUNGS: Decreased BS bases right worse than left. No wheeze
CV: Reg, S1/S2, 1/6 syst LSB, no gallop
ABD: soft, BS+, NT, ND
EXT: No clubbing, cyanosis, lesions or edema B/L
NEURO: Gross non-focal
SKIN: Left ACW implant ICD site stable without tenderness, swelling or drainage
Lab Results
12/02/23 10:54
12/02/23 10:54
Kdm-Y-Fblualmiwod Pept 4480 pg/ml 12/02/23 10:54
Impression / Plan
-
PCP: Dr. Sivakumar Patel
Primary Draw Frame Runner: Dr. Garcia
Impression:
Acute HFpEF
Recurrent right pleural effusion
s/p thoracentesis for 2 L 11/30/23
s/p thoracentesis for 1.4 L 12/02/23
Recent admission for colitis with right colectomy, VT and ICD placement 10/12/23 until 10/29/23 and 11/04/23 until 11/08/23
h/o Sustained monomorphic VT evening of 10/22/23 treated with s/p Medtronic DC ICD 10/26/23
Recovered CM: CM EF 15-20% by echo Jan 2020 with EF 30% by echo 04/20/19 with h/o recovered CM EF 65% by echo 05/2022, EF 53% by echo 07/20/23
CAD
s/p unsuccessful attempted PCI of LAD [employer] 03/07/16
CABG with occluded QUIÑONES to LAD by cath 2019, but patent SVG seq to Diag-OM-PDA 02/2014
s/p bioprosthetic MVR 02/2014
mod MS and mild to mod MR by echo 10/23/23
PAD
s/p right femoral endarterectomy and right iliac stenting 02/2016
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
possible TIA with noted L carotid stenosis s/p L CEA 03/03/23
Paroxysmal Afib
Chronic Eliquis OAC
HTN
Moderate to severe chronic obstructive pulmonary disease
DM2 with Diabetic neuropathy
Pulmonary HTN
Hx prostate cancer s/p surgery 2007
Medical marijuana use
former smoker
CATH 2019: Left main and three-vessel [place] coronary total occlusions, patent sequential SVG to diagonal/OM/PDA with collaterals to LAD, and occluded QUIÑONES to LAD, anterolateral wall hypokinesis with mild LV dysfunction
Echo 08/2022: Mild LVH, mid to apical anterior and anteroseptal hypokinesis, EF 50%, bioprosthetic mitral valve with peak/mean gradients 10/6 mmHg, GASTON 1.5 cm�, trace MR, dilated left atrium, aortic sclerosis, normal right heart cardiac
Echo 07/20/2023: EF 53%, mild concentric LVH. Bovine mitral valve replacement well-seated peak/mean gradient 20/10 mmHg with MV area 1.4 cm�, moderate MS with mild to moderate MR. Mild TR with PAP 35 mmHg
ECHO 10/23/23: EF 68%, flattened septum in systole consistent with RV pressure overload, severely dilated left atrium, bovine mitral valve replacement with peak/mean gradients of 43/22 mmHg, concern for at least moderate bioprosthetic MS, moderate MR,
moderate TR, PAP 78 mmHg
Plan:
-Patient came to [facility] today with increased SOB and has worsened right pleural effusion, he is being admitted with acute HF and cardiology has been consulted. Patient was admitted to twice in October with colitis and eventual right colectomy with
post-op ileus. While recovering from ileus he had sustained self-terminating VT. EF previously reduced, but was 68% by echo 10/23/23. He has a Medtronic DC ICD placed 10/26/23. He Toprol XL was continued. Patient was seen in the cardiology office
Thursday and was feeling well because he had an outpatient thoracentesis in IR that day for 2 L. He says that he started to feel SOB again today and came to [facility] where a CXR revealed recurrent right pleural effusion. He just returned to his ER room
for my HPI and reports 1.4 L removed form right lung and he again feels much better. Patient reports h/o recurrent pleural effusion and that he previously had a Pleurx in place. Patient has a previous CABG and tissue MVR from 02/2014. There was mild
to mod MR and moderate MS with mean gradient 22 mmHg by echo 10/23/23. No chest pain. No edema.
-Agree with admission and IV diuresis. Patient currently ordered Lasix 40 mg PO BID and will change to IV.
-Patient had a right sided thoracentesis for 2 L on 11/30/23 and another thora for 1.4 L today.
-Check echo in AM. Patient might need GLADIS this admission to better assess tissue MVR. Mean gradient was 22 mmHg by TTE 10/23/23
-Cont outpatient dose of Toprol XL 37.5 mg BID
-ECG reviewed by me shows NSR with anterior T wave inversions. No evidence of ST elevation. He is in SR.
-Cont Eliquis 5 mg BID for h/o pAfib
[2023-12-02] MEDS: NEURONTIN 600 MG PO ×2 (15:04→22:16)
--- NOTE | 2023-12-02 16:30 | CON.PUL ---
Consultation
Consultation Request
Date/Time Consultation Requested: 12/02/2023
Date/Time Consultation Performed: 12/02/2023
Requesting Provider: Dr. Dozier
Performing Provider: Dr. Hector Best
Reason for Consultation: Shortness of breath/recurrent pleural effusion
Medical History
-
Chief Complaint: Shortness of breath
History of Present Illness:
73-year-old male former smoker with a history of CAD/CABG in the past and ventricular tachycardia status post ICD placement 10/26/2023 in addition to heart failure, mitral valve replacement- with residual MS, PAD, diabetes and ischemic colitis status
post right colectomy presented with increasing shortness of breath and noted to have a right pleural effusion-pulmonary consulted for right pleural effusion 11/05/2023. Underwent thoracentesis on 11/05/2023 that was transudative with negative
cytology.
Patient continues to report shortness of breath. He is severely deconditioned with significant weight loss and muscle mass loss after abdominal surgery. Essentially not ambulating.
Has been on low rate supplemental oxygen.
Also has anemia that contributes to the symptoms.
He was seen in my office 11/26/2023 with ongoing shortness of breath. He was set up for thoracentesis 11/30/2023. 1 L was drained on the right.
During my office visit he was complaining of dizziness, lightheadedness. He was on Lasix and blood pressure medications. He was advised to follow-up with cardiology.
-
He returns to the hospital
Now on 12/02/2023 complaining of increasing shortness of breath despite thoracentesis. Denies fevers, cough, chills or night sweats. Denies hemoptysis. Denies swallowing problems.
It is noted in the ECW note from few days ago that the patient does have underlying COPD not on inhalers. Samples were given at that time of bronchodilators.
He was explained that his shortness of breath is multifactorial including deconditioning, anemia, underlying COPD, mitral stenosis.
He again had 1400 cc of yellow pleural fluid drained.
Subsequent chest x-ray showed no pneumothorax. Improvement on aeration of the right lung base.
proBNP is elevated from baseline in the 4000's.
Past Medical History
Past Medical History: None (CAD/CABG/PCI. V. tach 10/2023 status post ICD placement 10/26/2023. CHF reduced EF. Bioprosthetic MVR. PAD status post right femoral endarterectomy and right SFA stent. TIA. Left CEA. PAF on Eliquis. Diabetes.
Diabetic neuropathy. Hypertension. Pulm hypertension. Prostate cancer.)
Past Surgical History: None (Ischemic colitis status post right colectomy 10/14/2023. Chronic opioid-induced constipation. CABG. MVR. Left shoulder surgery. Prostatectomy. Amputation left great toe.)
Social History
Tobacco: Former Smoker ([id number] quit 20 years ago)
Alcohol: None
Drug: None
Personal:
Living: With Family
Occupational Exposures: No known asbestos exposure
Environmental Exposures: No known tuberculosis exposure
Family History
Family History: Reviewed & Not Pertinent
Allergies / Home Medications
Allergies
Allergy/AdvReac Type Severity Reaction Status Date / Time
vancomycin Allergy Mild Itching Verified 12/02/23 14:26
fish derived Allergy SEAFOOD-HIV Verified 10/12/23 12:10
ES
Home Medications
�Medication �Instructions �Recorded �Confirmed �Last Taken �Type
atorvastatin 80 mg tablet 80 mg PO QPM High cholesterol 01/19/20 12/02/23 12/01/23 History
gabapentin 600 mg tablet 600 mg PO TID Pain 12/19/22 12/02/23 12/02/23 History
zolpidem 5 mg tablet 5 mg PO HSPRN PRN sleep 12/19/22 12/02/23 05/08/23 21:00 History
oxycodone 10 mg tablet 10 mg PO QID 02/26/23 12/02/23 12/02/23 History
glipizide 2.5 mg tablet, extended 2.5 mg PO QPM Diabetes #0 tabs 02/27/23 12/02/23 12/02/23 Rx
release 24 hr
metformin 1,000 mg tablet 1,000 mg PO BID Diabetes #0 tabs 02/27/23 12/02/23 12/02/23 Rx
morphine 15 mg tablet,extended 15 mg PO Q8H Pain 07/18/23 12/02/23 12/02/23 History
release
apixaban 5 mg tablet (Eliquis) 5 mg PO BID Blood clot 07/23/23 12/02/23 12/02/23 Rx
prevention/tx #60 tabs
furosemide 40 mg tablet 40 mg PO BID AT 0800,1600 Fluid 07/23/23 12/02/23 12/02/23 Rx
retention/Swelling #60 tabs
midodrine 5 mg tablet 5 mg PO TIDPRN PRN dizziness #10 07/23/23 12/02/23 11/30/23 Rx
tabs
metoprolol succinate 25 mg 37.5 mg (1.5 x 25 mg) PO BID #90 10/29/23 12/02/23 12/02/23 Rx
tablet,extended release 24 hr tabs
Saccharomyces boulardii 250 mg 250 mg PO DAILY 5 days #5 caps 11/08/23 12/02/23 12/01/23 Rx
capsule
Medical Marijuana 2 puff inhalation DAILYPRN PRN 12/02/23 12/02/23 Unknown History
mild pains
docusate sodium 100 mg capsule 100 mg PO HS 12/02/23 12/02/23 12/01/23 History
(Colace)
lactulose 20 gram/30 mL oral 20 g PO DAILY 12/02/23 12/02/23 12/02/23 History
solution
Review of Systems
-
History Source: Patient
All other systems: Negative unless noted
Vitals / Labs / Diagnostic Testing
Vital Signs
Temp Pulse Resp BP Pulse Ox
97.7 F 74 18 130/68 100
12/02/23 14:39 12/02/23 15:02 12/02/23 14:39 12/02/23 15:02 12/02/23 14:39
Lab Data
12/02/23 10:54
12/02/23 10:54
Diagnostic Testing:
Physical Exam
-
HEENT: Normocephalic
Cardiovascular: S1/S2
Respiratory: Clear, Non-Labored Respirations and Other (Decreased breath sounds on the right)
GI: Soft and Non Distended
Neurology: Awake, Alert, Oriented and No Motor Deficits
Skin: Warm
General: Comfortable
Assessment
-
73-year-old male with past medical history noted. Recently seen in my office for shortness of breath. Scheduled for thoracentesis 11/30/2023. Despite thoracentesis comes back complaining of shortness of breath. Again thoracentesis performed
12/02/2023 1400 cc. Transudate. We were consulted for evaluation.
Recurrent right pleural effusion:
Thoracentesis 11/05/2023, 11/30/2023 and 12/02/2023.
Transudate: Total protein less than 2 g/dL/glucose 98/LDH less than 90/white blood cells 243/79% mononuclear
Prior cytology and cultures negative
Suspect related to volume overload/heart failure.
proBNP 4480 highest seen since 2018
Prior TSH normal
Liver function testing normal
Normal renal function without proteinuria.
Exertional dyspnea multifactorial: Recurrent pleural effusion due to volume overload/valvular disease with mitral stenosis/deconditioning/anemia/COPD
COPD without exacerbation: Recently started on inhalers samples given in the outpatient- [facility]
Anemia-chronic and stable
Deconditioning, significant muscle mass loss after recent abdominal surgery
Conditions present prior admission:
Conditions present prior to admission:
History of colitis status post right colectomy 10/14/2023
CAD/CABG/PCI.
V. tach 10/2023 status post ICD placement 10/26/2023.
CHF reduced EF-was 15% now 68%
Bioprosthetic MVR.
COPD with centrilobular [id number]-year smoker quit 2007
PAD status post right femoral endarterectomy and right SFA stent.
TIA.
Left CEA.
PAF on Eliquis.
Diabetes.
Diabetic neuropathy.
Hypertension.
Pulm hypertension.
Prostate cancer.
Bladder cancer
Chronic opioid-induced constipation.
Marijuana use for pain
Acute colitis status post right colectomy 10/14/2023 CABG 2013. MVR-bioprosthetic 02/2014. Left CEA 2022. Left shoulder surgery. Prostatectomy. Amputation left great toe.
DNR in the past
Assessment and plan:
Ongoing shortness of breath, multifactorial as above. Feels better after thoracentesis.
His right pleural effusion continues to be transudative-negative cultures/negative cytology.
Pleural fluid chemistry results 12/02/2023: pH 7.56/white blood cells 243/70% mononuclear/glucose 98/total protein less than 2/LDH less than 90. Consistent with transudate.
As previously mentioned normal renal function, no proteinuria, normal albumin level, no evidence for cirrhosis of the liver, normal TSH.
With increased proBNP and significant valvular abnormalities suggest this is all related to his underlying cardiac disease.
Agree with cardiac evaluation
Cardiology correspondence reviewed: To repeat echocardiogram. Suspect may need to readdress his mitral valve.
-
Chest x-ray post thoracentesis 12/02/2023: Without infiltrate postthoracentesis or pneumothorax per
Most recent CT chest performed 10/23/2023: Showed no evidence for thromboembolic disease.
There is some hilar adenopathy. Subcarinal adenopathy. Precarinal adenopathy less than 2 cm. No pericardial effusion. No significant parenchymal lung abnormalities. Mild emphysema. Bilateral pleural effusion.
-
From the COPD/emphysema perspective: He was not on inhalers in the past.
FEV1 0.83 L or 31%/FVC 1.55 L or 39%. Ratio 60%. Moderate to severe airflow obstruction without restriction.(11/26/2023)
Former smoker quit in 2007.
No evidence for acute exacerbation.
Recently given samples in my office Trelegy-Can hold for now. Not bronchospastic.
-
He will benefit from pulmonary rehabilitation in the future.
-
Hemoglobin contributing to symptoms. Follow and transfuse as necessary.
-
DVT prophylaxis on Eliquis. Less likely thromboembolic disease as the patient has been compliant with anticoagulation.
-
Case discussed with primary team.
Extensive discussion with patient as well
-
Will follow

Diagnostic data:
Chest x-ray 03/03/2023: No active disease
Chest x-ray 11/04/2023-small right pleural effusion
Chest x-ray 11/08/2023 - Tiny right pleural effusion (new)
CT abdomen and pelvis 11/04/2023-severe uncomplicated right-sided colitis, small to moderate right pleural effusion, infectious inflammatory bronchiolitis throughout left lung
Ultrasound chest 11/04/2023-moderate pleural effusion
Echo 10/23/2023: Normal biventricular function, EF 68%, mitral valve gradients have worsened, bovine mitral valve replacement gradient 43/22. Moderate mitral valve stenosis. Moderate MR, flattened septum in systole consistent with mild RV pressure
overload. Severely dilated left atrium. Moderate TR. PA pressure 78, worsened
Echocardiogram 09/01/2022: EF 50%, bioprosthetic mitral valve, aortic sclerosis, normal right heart, cannot measure right heart pressures
Cardiac catheterization 01/23/2020-left main and three-vessel CAD occlusion, patent sequential SVG to diagonal OM PDA and collaterals to LAD, known occluded QUIÑONES to LAD, anterolateral wall hypokinesis
--- NOTE | 2023-12-02 16:54 | PTCARENOTE ---
pt arrived to floor at 1430 from ED via stretcher. pt wearing 2L nc. pt ambulated from hallway to bed w/out assist. pt on tele running NSR. VSS. physical assessment and admissions completed by this nurse.
[2023-12-02 16:55] LABS: Glucose - Point of Care 133 mg/dl (70-99)
[2023-12-02] MEDS: LIPITOR 80 MG PO (17:39)
[2023-12-02] MEDS: ELIQUIS 5 MG PO (20:18)
[2023-12-02] MEDS: TOPROL XL 12.5 MG PO (20:18)
[2023-12-02] MEDS: TOPROL XL 25 MG PO (20:19)
[2023-12-02 21:16] LABS: Glucose - Point of Care 200 mg/dl (70-99)
[2023-12-02] MEDS: COLACE 100 MG PO (22:15)
[2023-12-03] MEDS: MS CONTIN (EXTENDED RELEASE) 15 MG PO ×3 (06:40→21:59)
[2023-12-03] MEDS: ROXICODONE 10 MG PO ×3 (06:40→21:59)
[2023-12-03] MEDS: NEURONTIN 600 MG PO ×3 (06:40→21:57)
[2023-12-03 07:00] VITALS: BP 115/50
[2023-12-03 07:24] LABS: Hematocrit 33.2 % (39.0-52.0); Hemoglobin 10.7 g/dL (13.0-18.0); Mean Corp Hgb Conc. 32.2 g/dL (33.0-37.0); Mean Corpuscular Hgb 27.6 pg (27.0-31.0); Mean Corpuscular Volume 85.8 fL (80.0-94.0); Mean Platelet Volume 10.6 fL (7.4-10.4); Platelet Count 195 10^3/uL (130-400); Red Blood Cell Count 3.87 10^6/uL (4.70-6.10); Red Cell Dist. Width 16.5 % (11.5-14.5)
--- NOTE | 2023-12-03 08:06 | VNURNOTE ---
Chart reviewed. Patient is current with [facility] nursing, PT. Will continue to follow hospital course and DC plans.
[2023-12-03 08:27] LABS: Blood Urea Nitrogen 24 mg/dl (9-20); Calcium 8.8 mg/dl (8.4-10.2); Carbon Dioxide 27 mmol/L (22-30); Chloride 98 mmol/L (98-107); Estimated Creatinine Clearance 77 ml/min; Glucose 104 mg/dl (70-99); Magnesium 1.9 mg/dl (1.6-2.3); Potassium 4.8 mmol/L (3.5-5.1); Sodium 139 mmol/L (135-145); eGFR > 60.00
[2023-12-03] MEDS: DUPHALAC/CHRONULAC 20 GRAMS PO (08:56)
[2023-12-03] MEDS: TOPROL XL 12.5 MG PO ×2 (08:56→20:06)
[2023-12-03] MEDS: ELIQUIS 5 MG PO ×2 (08:56→20:08)
[2023-12-03] MEDS: FLORASTOR 250 MG PO (08:56)
[2023-12-03] MEDS: TOPROL XL 25 MG PO ×2 (08:57→20:07)
[2023-12-03] MEDS: LASIX 40 MG IV ×2 (08:57→17:14)
--- NOTE | 2023-12-03 09:43 | W.PN.PUL3 ---
Today's Communication / Plan
-
GLADIS tomorrow for workup of transcatheter MV replacement
NPO p MN
Continue IV Lasix
Trend UOP/sCr and I/O
Maintain SpO2 >90-94%
PT/OT
Pain control
Ambulatory pulse oximetry prior to discharge
Assessment
-
73-year-old male with past medical history noted. Recently seen in my office for shortness of breath. Scheduled for thoracentesis 11/30/2023. Despite thoracentesis comes back complaining of shortness of breath. Again thoracentesis performed
12/02/2023 1400 cc. Transudate. We were consulted for evaluation.
Impression:
Recurrent right pleural effusion:
Thoracentesis 11/05/2023, 11/30/2023 and 12/02/2023.
Transudate from fluid on 12/02/2023: Total protein less than 2 g/dL/glucose 98/LDH less than 90 U/L, white blood cells 243 with monocyte predominance
Prior cytology and cultures negative
Suspect related to volume overload/heart failure related to bioprosthetic mitral valve stenosis
proBNP 4480 highest seen since 2018
Prior TSH normal
Liver function testing normal
Normal renal function without proteinuria.
Exertional dyspnea multifactorial: Recurrent pleural effusion due to volume overload/valvular disease with mitral stenosis/deconditioning/anemia/COPD
Severe COPD (post-BD FEV1: 31% predicted/1.12L) without acute exacerbation: Recently started on inhalers samples given in the outpatient- [facility]
Anemia-chronic and stable
Deconditioning, significant muscle mass loss after recent abdominal surgery
Conditions present prior admission:
History of colitis status post right colectomy 10/14/2023
CAD/CABG/PCI.
V. tach 10/2023 status post ICD placement 10/26/2023.
CHF reduced EF-was 15% now 68%
Bioprosthetic MVR.
COPD with centrilobular [id number]-year smoker quit 2007
PAD status post right femoral endarterectomy and right SFA stent.
TIA.
Left CEA.
PAF on Eliquis.
Diabetes.
Diabetic neuropathy.
Hypertension.
Pulm hypertension.
Prostate cancer.
Bladder cancer
Chronic opioid-induced constipation.
Marijuana use for pain
Acute colitis status post right colectomy 10/14/2023 CABG 2013. MVR-bioprosthetic 02/2014. Left CEA 2022. Left shoulder surgery. Prostatectomy. Amputation left great toe.
DNR
Assessment and plan:
Ongoing shortness of breath, multifactorial as above. Feels better after thoracentesis and CXR from 12/02/2023 shows marked improvement in right pleural effusion
His right pleural effusion continues to be transudative-negative cultures/negative cytology.
Pleural fluid chemistry results 12/02/2023: pH 7.56/white blood cells 243/70% mononuclear/glucose 98/total protein less than 2/LDH less than 90. Consistent with transudate.
As previously mentioned normal renal function, no proteinuria, normal albumin level, no evidence for cirrhosis of the liver, normal TSH.
With increased proBNP and significant valvular abnormalities suggest this is all related to his underlying valvular heart disease
Agree with cardiac evaluation
Cardiology correspondence reviewed: TTE obtained today (12/03/2023) showing significant bioprosthetic mitral valve stenosis with elevated gradients of 51/28 (peak/mean, respectively). GLADIS scheduled for tomorrow.
-
Chest x-ray post thoracentesis 12/02/2023: Without infiltrate post-thoracentesis or pneumothorax
Most recent CT chest performed 10/23/2023: Showed no evidence for thromboembolic disease.
There is some hilar adenopathy. Subcarinal adenopathy. Precarinal adenopathy less than 2 cm. No pericardial effusion. No significant parenchymal lung abnormalities. Mild emphysema. Bilateral pleural effusion. Adenopathy likely from volume
overload
-
From the COPD/emphysema perspective: He was not on inhalers in the past.
Post bronchodilator FEV1: 31% predicted/1.12 L; postbronchodilator FVC: 39% predicted/1.9 L; FEV1/FVC: 56 --> 58 with BD; Severe COPD with severe restrictive defect
Former smoker quit in 2007.
No evidence for acute exacerbation.
Recently given samples in my office Trelegy-Can hold for now. Not bronchospastic.
Maintain SpO2 88-95%; check ambulatory pulse oximetry prior to discharge
-
He will benefit from pulmonary rehabilitation in the future.
-
Hemoglobin contributing to symptoms. Follow and transfuse as necessary to keep Hb>7g/dL
-
DVT prophylaxis on Eliquis. Less likely thromboembolic disease as the patient has been compliant with anticoagulation.
-
Case discussed with primary team.
Extensive discussion with patient as well
-
Will follow

Diagnostic data:
Chest x-ray 03/03/2023: No active disease
Chest x-ray 11/04/2023-small right pleural effusion
Chest x-ray 11/08/2023 - Tiny right pleural effusion (new)
CXR 12/02/2023: No significant residual pleural fluid remaining following right thoracentesis. No pneumothorax. Right basilar airspace opacities are no longer visualized consistent with resolved atelectasis, previously thought to potentially
represent pneumonia
CT abdomen and pelvis 11/04/2023-severe uncomplicated right-sided colitis, small to moderate right pleural effusion, infectious inflammatory bronchiolitis throughout left lung
Ultrasound chest 11/04/2023-moderate pleural effusion
Echo 10/23/2023: Normal biventricular function, EF 68%, mitral valve gradients have worsened, bovine mitral valve replacement gradient 43/22. Moderate mitral valve stenosis. Moderate MR, flattened septum in systole consistent with mild RV pressure
overload. Severely dilated left atrium. Moderate TR. PA pressure 78, worsened
Echocardiogram 09/01/2022: EF 50%, bioprosthetic mitral valve, aortic sclerosis, normal right heart, cannot measure right heart pressures
Cardiac catheterization 01/23/2020-left main and three-vessel CAD occlusion, patent sequential SVG to diagonal OM PDA and collaterals to LAD, known occluded QUIÑONES to LAD, anterolateral wall hypokinesis
Total time spent today was 35 minutes for this encounter. Time includes reviewing laboratory test/imaging results, reviewing pertinent medical records, obtaining and reviewing medical history, performing an appropriate exam, ordering medications,
tests and procedures. Time also includes documentation of this encounter, coordinating patient care and communicating with other healthcare professionals. Total time does not include separately billed tests performed on this date of service.
Subjective Data
-
Date of Service:
Date of Service: December 03, 2023
Chief Complaint: Pulmonary Follow Up
Subjective:
Patient was seen and evaluated today at bedside. Patient's friend/family member at bedside. He feels much better today. He is currently on room air breathing comfortably. Has some mild pain where the right-sided thoracentesis was done yesterday.
Otherwise he denies BRAVO, SOB, abdominal pain, fevers or chills. TTE obtained today showing significant bioprosthetic mitral valve stenosis with elevated gradients of 51/28 (peak/mean, respectively). GLADIS scheduled for tomorrow.
Review of Systems
General: Other (Negative unless mentioned above)
Objective Data
Data Reviewed
Vital Signs / I&O / Oxygen:
Vital Signs
Temp Pulse Resp BP Pulse Ox
97.3 F 66 16 115/50 95
12/03/23 07:00 12/03/23 08:57 12/03/23 07:00 12/03/23 08:57 12/03/23 07:00
Intake and Output
12/02/23 12/03/23 12/04/23
06:59 06:59 06:59
Intake Total 840 / 840
Balance 840 / 840
SaO2 95
Nasal Cannula flow liters per 2
minute
Physical Exam
General: Respiratory Distress (negative) and Comfortable
HEENT: Normocephalic and Anicteric
Cardiovascular: S1-S2 and Peripheral Edema (negative)
Respiratory: Clear, Wheeze (negative), Crackles (negative) and Rhonchi (negative)
GI: Soft, Non Distended, Non Tender and Normal Bowel Sounds
Neurology: AO x 3 and Tremors (negative)
Skin: Warm and Dry
Labs/Micro/Reports
Lab Data
12/03/23 07:10
12/03/23 07:10
Microbiology
12/02/23 13:52 Pleural Fluid Gram Stain - Preliminary
--- NOTE | 2023-12-03 10:07 | W.PN.HOSP.TC ---
Today's Communication/Plan
-
Re-start oral DM medications
IV Lasix
Echo
Assessment / Plan
Assessment / Plan
Physical Exam
General: No Apparent Distress
HEENT: PERRLA
Respiratory: Other (decreased breath sounds right lung, no wheezing )
Cardiac: S1/S2 and Regular Rhythm
GI: Non Tender
Musculoskeletal: No Edema
Skin: Warm and Dry; No Rash
Neuro: AO x 3
Psych: Calm
Mr. Herrera Angel is a 73 yo man with hx CAD s/p PCI and CABG, bioprosthetic MVR with moderate stenosis, cardiomyopathy with improved EF, hx TIA, left carotid stenosis s/p CEA 03/07, PAD s/p right SFA and popliteal TEMPLATE REPRODUCTION TECHNICIAN and stent 11/02, paroxysmal
afib on Eliquis, HTN, COPD, DM2, admission 10/11-10/28 for ischemic colitis s/p right-sided colectomy on 10/13, VT s/p AICD on 10/26/23, recent admission 11/03-11/08/23 for colitis and right pleural effusion s/p thoracentesis (no e/o infection) presented
to the ER with increasing shortness of breath despite repeat thoracentesis.
Triage VS: T 97.7, P 71, RR 13, BP 124/62, SpO2 99%
LABS: WBC 10.7, Hg 10.7, PLT 206, Na 140, K+ 3.8, Cl 101, CO2 27, Cr 0.9, Glucose 115, T. Bili 1.3, AST 23, ALT 18
CXR
IMPRESSION:
Worsening right lower lobe airspace opacities suspicious for progression of pneumonia. Interval increase in a small right pleural effusion, likely parapneumonic.
MAR: IV Vanc, Cefepime
#Recurrent Right Pleural Effusion
s/p thoracentesis of 1400 cc of clear yellow pleural fluid. Transudative.
Feels better after thoracentesis.
-unclear etiology. Prior thoracentesis evaluation without e/o infection. Initial path negative for malignant cells (repeat 11/29 pending). Possibly related to heart failure and bioprosthetic MVR stenosis although patient without e/o overt systemic
heart failure
-fluid restriction, low salt diet
Coronary Artery Disease
Hx PCI and CABG
VT s/p AICD on 10/26/23
Bioprosthetic MVR with moderate stenosis noted and possible need for GLADIS/cath in future
Paroxysmal Atrial Fibrillation
Ischemic Cardiomyopathy with Recovered EF
Per cardiology: check a repeat echocardiogram to reevaluate his mitral valve. He may need a transesophageal echo to better evaluate his bioprosthetic valve. Change to IV Lasix . Will evaluate for Farxiga/Jardiance
-continue TEMPLATE REPRODUCTION TECHNICIAN Eliquis 5mg PO BID
-TEMPLATE REPRODUCTION TECHNICIAN Metoprolol 375 mg PO BID
-TEMPLATE REPRODUCTION TECHNICIAN Lipitor 80mg PO qhs
# # Right pulmonary atelectasis, not PNA
Chronic Pain
Opiate Dependence
-TEMPLATE REPRODUCTION TECHNICIAN Morphine, Oxycodone and Gabapentin - patient states takes all 3 at same timing throughout day: ordered for 7AM, 2PM and 10PM
Recent Admission for Ischemic Colitis
PAD s/p stenting
-TEMPLATE REPRODUCTION TECHNICIAN Eliquis, Statin
DM2 with Neuropathy
-Diabetic Diet
-ISS, he is refusing insulin, will place back on his pills.
DVT PPx: TEMPLATE REPRODUCTION TECHNICIAN Eliquis
DNR - confirmed on admission
Total time spent to see the patient, examine the patient on the floor, review data and lab results, discuss treatment plan with patient, nursing staff around 55 minutes
Anticipated Discharge: > 48 hours
Subjective/Interval History
-
Date of Service: December 03, 2023
Objective Data
-
Labs:
Laboratory Results
12/03/23
07:10
WBC 9.0
Hgb 10.7 L
Hct 33.2 L
Plt Count 195
Sodium 139
Potassium 4.8 D
Chloride 98
Carbon Dioxide 27
BUN 24 H
Creatinine 0.9
Glucose 104 H
Calcium 8.8
Vital Signs:
Vital Signs
Temp Pulse Resp BP Pulse Ox
97.3 F 66 16 115/50 95
12/03/23 07:00 12/03/23 08:57 12/03/23 07:00 12/03/23 08:57 12/03/23 07:00
I&O
12/02/23 12/03/23 12/04/23
06:59 06:59 06:59
Intake Total 840 / 840
Balance 840 / 840
[2023-12-03 10:43] LABS: Glycohemoglobin (HgbA1c) 4.9 % (4.0-5.6)
[2023-12-03 11:24] LABS: Glucose - Point of Care 155 mg/dl (70-99)
--- NOTE | 2023-12-03 13:56 | W.PN.CARDCBS ---
Addendum entered and electronically signed by Arron Luna MD 12/03/23 16:14:
73-year-old man with history of CAD/CABG/bioprosthetic mitral valve HFpEF possibly related to prostatic stenosis requiring multiple thoracenteses. He feels better now having had another thoracentesis.
PMH: NSVT October 2023 necessitating ICD following hemicolectomy for ischemic colitis in September 2023, CEA, PAF on Eliquis, diabetes and diabetic neuropathy, hypertension
Allergies: Vancomycin
Current medications: Apixaban 5 twice daily, atorvastatin 80 mg a day Colace, Neurontin, lactulose metoprolol ER 37.5 twice daily, as needed midodrine, furosemide 40 mg IV twice daily, glipizide
ROS negative
115/50, Pulse 66, Weight pending today slender, no acute distress, lungs relatively rare, regular rate and rhythm, systolic murmur at apex with diastolic murmur impairments, abdomen benign extremities without edema, JVD elevated
Hemoglobin 10.7, BUN/creatinine 24 and 0.9, potassium 4.8
Echo is pending.
Plan:
Volume status seems reasonable. Will transition to furosemide 60 mg by mouth twice daily a.m.
Can consider Farxiga. However issue is probably mitral stenosis and utility of SGLT2 antagonist is probably limited.
He may be a candidate for transcatheter mitral valve replacement, valve in valve.
Await transthoracic echo
Will proceed with transesophageal echo to further assess. Procedure explained to patient.
Original Note:
Today's Communication / Plan
-
GLADIS in AM
Impression / Plan
-
PCP: Dr. Sivakumar Patel
Primary Sonar Technician: Dr. Garcia
Impression:
Acute HFpEF
Recurrent right pleural effusion
s/p thoracentesis for 2 L 11/30/23
s/p thoracentesis for 1.4 L 12/02/23
Recent admission for colitis with right colectomy, VT and ICD placement 10/12/23 until 10/29/23 and 11/04/23 until 11/08/23
h/o Sustained monomorphic VT evening of 10/22/23 treated with s/p Medtronic DC ICD 10/26/23
Recovered CM: CM EF 15-20% by echo Jan 2020 with EF 30% by echo 04/20/19 with h/o recovered CM EF 65% by echo 05/2022, EF 53% by echo 07/20/23
CAD
s/p unsuccessful attempted PCI of LAD UNIT DIRECTOR 03/07/16
CABG with occluded QUIÑONES to LAD by cath 2019, but patent SVG seq to Diag-OM-PDA 02/2014
s/p bioprosthetic MVR 02/2014
mod MS and mild to mod MR by echo 10/23/23, increased MS gradients to 51/28 by prelim echo report 12/03/23
PAD
s/p right femoral endarterectomy and right iliac stenting 02/2016
s/p right SFA and popliteal CONTRACT SPECIALIST and stent 10/24/19
possible TIA with noted L carotid stenosis s/p L CEA 03/03/23
Paroxysmal Afib
Chronic Eliquis OAC
HTN
Moderate to severe chronic obstructive pulmonary disease
DM2 with Diabetic neuropathy
Pulmonary HTN
Hx prostate cancer s/p surgery 2007
Medical marijuana use
former smoker
CATH 2019: Left main and three-vessel [place] coronary total occlusions, patent sequential SVG to diagonal/OM/PDA with collaterals to LAD, and occluded QUIÑONES to LAD, anterolateral wall hypokinesis with mild LV dysfunction
Echo 08/2022: Mild LVH, mid to apical anterior and anteroseptal hypokinesis, EF 50%, bioprosthetic mitral valve with peak/mean gradients 10/6 mmHg, GASTON 1.5 cm�, trace MR, dilated left atrium, aortic sclerosis, normal right heart cardiac
Echo 07/20/2023: EF 53%, mild concentric LVH. Bovine mitral valve replacement well-seated peak/mean gradient 20/10 mmHg with MV area 1.4 cm�, moderate MS with mild to moderate MR. Mild TR with PAP 35 mmHg
ECHO 10/23/23: EF 68%, flattened septum in systole consistent with RV pressure overload, severely dilated left atrium, bovine mitral valve replacement with peak/mean gradients of 43/22 mmHg, concern for at least moderate bioprosthetic MS, moderate MR,
moderate TR, PAP 78 mmHg
Echo 12/03/23: prelim report, EF 72%, no WMA, normal RV size and function, bioprosthetic MVR with peak/mean 51/28 mmHg and mild to mod MR with some difficulty visualizing due to shadowing, mod TR
Plan:
-Preliminary echo report noted above. MS gradients worse. Will plan on GLADIS in AM
-No weight recorded for 12/03/23, but remains symptomatically improved following right-sided thoracentesis on 12/02/23.
-Cont Lasix 40 mg ID BID. Patient was taking Lasix 40 mg PO BID prior to admission
-Cont outpatient dose of Toprol XL 37.5 mg BID
-Cont Eliquis 5 mg BID for h/o pAfib
HPI: [facility] with increased SOB and has worsened right pleural effusion, he is being admitted with acute HF and cardiology has been consulted. Patient was admitted to twice in October with colitis and eventual right colectomy
with post-op ileus. While recovering from ileus he had sustained self-terminating VT. EF previously reduced, but was 68% by echo 10/23/23. He has a Medtronic DC ICD placed 10/26/23. He Toprol XL was continued. Patient was seen in the cardiology office
Thursday and was feeling well because he had an outpatient thoracentesis in that day for 2 L. He says that he started to feel SOB again today and [facility] where a CXR revealed recurrent right pleural effusion. He just returned to his ER room
for my HPI and reports 1.4 L removed form right lung and he again feels much better. Patient reports h/o recurrent pleural effusion and that he previously had a Pleurx in place. Patient has a previous CABG and tissue MVR from 02/2014. There was mild
to mod MR and moderate MS with mean gradient 22 mmHg by echo 10/23/23. No chest pain. No edema.
Progress Note - Sonar Technician
Subjective
Date of Service: December 03, 2023
Less SOB than he was on admission
Objective
Labs:
12/03/23 07:10
12/03/23 07:10
Labs
Hgb 10.7 g/dL (13.0-18.0) L 12/03/23 07:10
Hct 33.2 % (39.0-52.0) L 12/03/23 07:10
Plt Count 195 10^3/uL (130-400) 12/03/23 07:10
Sodium 139 mmol/L (135-145) 12/03/23 07:10
Potassium 4.8 mmol/L (3.5-5.1) D 12/03/23 07:10
BUN 24 mg/dl (9-20) H 12/03/23 07:10
Creatinine 0.9 mg/dL (0.7-1.3) 12/03/23 07:10
Glucose 104 mg/dl (70-99) H 12/03/23 07:10
Vital Signs and I&O:
Vital Signs
Temp Pulse Resp BP Pulse Ox
97.3 F 66 16 115/50 95
12/03/23 07:00 12/03/23 08:57 12/03/23 07:00 12/03/23 08:57 12/03/23 07:00
Vital Signs
Temp Pulse Resp BP Pulse Ox
97.3 F 66 16 115/50 95
12/03/23 07:00 12/03/23 08:57 12/03/23 07:00 12/03/23 08:57 12/03/23 07:00
Intake & Output
12/01/23 12/02/23 12/03/23 12/04/23
06:59 06:59 06:59 06:59
Intake Total 840 / 840
Balance 840 / 840
Physical Exam
Physical Exam
GEN: NAD. AAOx3
HEENT: MMM
LUNGS: Decreased BS bases right worse than left. No wheeze
CV: SR on tele
ABD: ND
EXT: No edema B/L
NEURO: Gross non-focal
SKIN: No rash
[2023-12-03 15:30] VITALS: BP 104/61
--- NOTE | 2023-12-03 16:33 | CM ---
Reviewed chart, met with patient to obtain information for assessment. Patient lives in a two story home with 7 steps to enter. He is able to complete his ADLs, personal care, dressing, bathing and ambulates with a cane. He also has a shower chair
and a rolling walker. 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 His supports him.
Patient is current with [facility] and selects for resumption-liason aware
He has been to [facility] in the past
Patient has a prescription plan and uses [facility]
Dr. Sivakumar Patel is PCP.
Plan: Case management will continue to follow and assist with discharge planning. Home with [facility].
[2023-12-03 16:55] LABS: Glucose - Point of Care 156 mg/dl (70-99)
[2023-12-03] MEDS: GLUCOPHAGE 1000 MG PO (17:14)
[2023-12-03] MEDS: LIPITOR 80 MG PO (17:14)
[2023-12-03] MEDS: GLUCOTROL 2.5 MG PO (17:16)
[2023-12-03 17:30] VITALS: BMI 21.0
[2023-12-03 19:16] VITALS: BP 106/49
[2023-12-03 21:18] LABS: Glucose - Point of Care 103 mg/dl (70-99)
[2023-12-03] MEDS: COLACE 100 MG PO (21:57)
--- NOTE | 2023-12-03 22:08 | PTCARENOTE ---
Pt complained of new onset nausea, CLIENT CONSULTANT made aware and order for zofran obtained, see MAR.
[2023-12-03] MEDS: ZOFRAN 4 MG IV (22:14)
[2023-12-03 23:16] VITALS: BP 115/66
[2023-12-04 05:58] LABS: Glucose - Point of Care 114 mg/dl (70-99)
[2023-12-04 06:00] VITALS: BMI 21.0
[2023-12-04] MEDS: NEURONTIN 600 MG PO ×3 (06:05→21:29)
[2023-12-04] MEDS: MS CONTIN (EXTENDED RELEASE) 15 MG PO ×3 (06:05→21:28)
[2023-12-04] MEDS: ROXICODONE 10 MG PO ×3 (06:05→21:28)
--- NOTE | 2023-12-04 09:33 | W.PN.PUL3 ---
Today's Communication / Plan
-
Awaiting transfer to [place] for transcatheter MV replacement
IV Lasix now changed to PO
CT TAVR obtained today showing bilateral pleural effusions (R >L) with fluid seen in the fissures with interlobular septal thickening
Trend UOP/sCr and I/O
Maintain SpO2 >90-94%
PT/OT
Pain control
Ambulatory pulse oximetry prior to discharge
I advised to the patient's to bring the imaging studies done during this hospitalization with the patient to [place] so that they have access to his imaging studies performed here
Assessment
-
73-year-old male with past medical history noted. Recently seen in my office for shortness of breath. Scheduled for thoracentesis 11/30/2023. Despite thoracentesis comes back complaining of shortness of breath. Again thoracentesis performed
12/02/2023 1400 cc. Transudate. We were consulted for evaluation.
Impression:
Recurrent right pleural effusion:
Thoracentesis 11/05/2023, 11/30/2023 and 12/02/2023.
Transudate from fluid on 12/02/2023: Total protein less than 2 g/dL/glucose 98/LDH less than 90 U/L, white blood cells 243 with monocyte predominance
Prior cytology and cultures negative
Suspect related to volume overload/heart failure related to bioprosthetic mitral valve stenosis
proBNP 4480 highest seen since 2018
Prior TSH normal
Liver function testing normal
Normal renal function without proteinuria.
Exertional dyspnea multifactorial: Recurrent pleural effusion due to volume overload/valvular disease with bioprosthetic mitral valve stenosis/deconditioning/anemia/COPD
Severe COPD (post-BD FEV1: 31% predicted/1.12L) without acute exacerbation: Recently started on inhalers samples given in the outpatient- LÁZARO
Anemia-chronic and stable
Deconditioning, significant muscle mass loss after recent abdominal surgery
Conditions present prior admission:
History of colitis status post right colectomy 10/14/2023
CAD/CABG/PCI.
V. tach 10/2023 status post ICD placement 10/26/2023.
CHF reduced EF-was 15% now 68%
Bioprosthetic MVR.
COPD with centrilobular [id number]-year smoker quit 2007
PAD status post right femoral endarterectomy and right SFA stent.
TIA.
Left CEA.
PAF on Eliquis.
Diabetes.
Diabetic neuropathy.
Hypertension.
Pulm hypertension.
Prostate cancer.
Bladder cancer
Chronic opioid-induced constipation.
Marijuana use for pain
Acute colitis status post right colectomy 10/14/2023 CABG 2013. MVR-bioprosthetic 02/2014. Left CEA 2022. Left shoulder surgery. Prostatectomy. Amputation left great toe.
DNR
Assessment and plan:
Ongoing shortness of breath, multifactorial as above. Feels better after thoracentesis and CXR from 12/02/2023 shows marked improvement in right pleural effusion
His right pleural effusion continues to be transudative-negative cultures/negative cytology.
Pleural fluid chemistry results 12/02/2023: pH 7.56/white blood cells 243/70% mononuclear/glucose 98/total protein less than 2/LDH less than 90. Consistent with transudate.
As previously mentioned normal renal function, no proteinuria, normal albumin level, no evidence for cirrhosis of the liver, normal TSH.
With increased proBNP and significant valvular abnormalities suggest this is all related to his underlying valvular heart disease
Agree with cardiac evaluation
Cardiology correspondence reviewed: TTE obtained on 12/03/2023 showing significant bioprosthetic mitral valve stenosis with elevated gradients of 51/28 (peak/mean, respectively). Transfer being initiated to [facility] for TMVR
-
Chest x-ray post thoracentesis 12/02/2023: Without infiltrate post-thoracentesis or pneumothorax
Last CT chest performed 10/23/2023: Showed no evidence for thromboembolic disease.
There is some hilar adenopathy. Subcarinal adenopathy. Precarinal adenopathy less than 2 cm. No pericardial effusion. No significant parenchymal lung abnormalities. Mild emphysema. Bilateral pleural effusion. Adenopathy likely from volume
overload
CT TAVR done today (12/04/2023) showing moderate size right pleural effusion with small left pleural effusion and fluid seen in the bilateral horizontal fissures with bronchial wall thickening bilaterally
Continue with PO lasix and aim for net negative fluid balance as tolerated; trend I/O, sCr and UOP
-
From the COPD/emphysema perspective: He was not on inhalers in the past.
Post-bronchodilator FEV1: 31% predicted/1.12 L; postbronchodilator FVC: 39% predicted/1.9 L; FEV1/FVC: 56 --> 58 with BD; Severe COPD with severe restrictive defect
Former smoker quit in 2007.
No evidence for acute exacerbation.
Recently given samples in my office Trelegy-Can hold for now. Not bronchospastic.
Maintain SpO2 88-95%; check ambulatory pulse oximetry prior to discharge
-
He will benefit from pulmonary rehabilitation in the future.
-
Hemoglobin contributing to symptoms. Follow and transfuse as necessary to keep Hb>7g/dL
-
DVT prophylaxis on Eliquis. Less likely thromboembolic disease as the patient has been compliant with anticoagulation.
-
Case discussed with primary team.
Extensive discussion with patient as well
-
Will follow while he remains hospitalized here at while awaiting transfer to [place] for TMVR

Diagnostic data:
Chest x-ray 03/03/2023: No active disease
Chest x-ray 11/04/2023-small right pleural effusion
Chest x-ray 11/08/2023 - Tiny right pleural effusion (new)
CXR 12/02/2023: No significant residual pleural fluid remaining following right thoracentesis. No pneumothorax. Right basilar airspace opacities are no longer visualized consistent with resolved atelectasis, previously thought to potentially
represent pneumonia
CT abdomen and pelvis 11/04/2023-severe uncomplicated right-sided colitis, small to moderate right pleural effusion, infectious inflammatory bronchiolitis throughout left lung
Ultrasound chest 11/04/2023-moderate pleural effusion
Echo 10/23/2023: Normal biventricular function, EF 68%, mitral valve gradients have worsened, bovine mitral valve replacement gradient 43/22. Moderate mitral valve stenosis. Moderate MR, flattened septum in systole consistent with mild RV pressure
overload. Severely dilated left atrium. Moderate TR. PA pressure 78, worsened
Echocardiogram 09/01/2022: EF 50%, bioprosthetic mitral valve, aortic sclerosis, normal right heart, cannot measure right heart pressures
Cardiac catheterization 01/23/2020-left main and three-vessel CAD occlusion, patent sequential SVG to diagonal OM PDA and collaterals to LAD, known occluded QUIÑONES to LAD, anterolateral wall hypokinesis
Total time spent today was 35 minutes for this encounter. Time includes reviewing laboratory test/imaging results, reviewing pertinent medical records, obtaining and reviewing medical history, performing an appropriate exam, ordering medications,
tests and procedures. Time also includes documentation of this encounter, coordinating patient care and communicating with other healthcare professionals. Total time does not include separately billed tests performed on this date of service.
Subjective Data
-
Date of Service:
Date of Service: December 04, 2023
Chief Complaint: Pulmonary Follow Up
Subjective:
Patient seen and evaluated today at bedside. He is currently on room air breathing comfortably. He is very tired today as he did not sleep well overnight. Echo performed yesterday shows increased peak/mean gradients across the bioprosthetic
mitral valve 51/28 mmHg, respectively.
Review of Systems
General: Other (Negative unless mentioned above)
Objective Data
Data Reviewed
Vital Signs / I&O / Oxygen:
Vital Signs
Temp Pulse Resp BP Pulse Ox
97.8 F 70 16 121/58 90
09/20/24 09:53 12/04/23 09:56 12/04/23 09:53 12/04/23 09:56 12/03/23 23:16
Intake and Output
12/03/23 12/04/23 12/05/23
06:59 06:59 06:59
Intake Total 840 / 840 840 / 840
Balance 840 / 840 840 / 840
SaO2 90
Nasal Cannula flow liters per 2
minute
Physical Exam
General: Respiratory Distress (negative) and Comfortable
HEENT: Normocephalic and Anicteric
Cardiovascular: S1-S2 and Peripheral Edema (negative)
Respiratory: Clear, Wheeze (negative), Crackles (negative) and Rhonchi (negative)
GI: Soft, Non Distended, Non Tender and Normal Bowel Sounds
Neurology: AO x 3 and Tremors (negative)
Skin: Warm and Dry
Labs/Micro/Reports
Lab Data
12/03/23 07:10
12/03/23 07:10
Microbiology
12/02/23 13:52 Pleural Fluid Body Fluid Culture - Preliminary
No Growth After 18-24 Hours
12/02/23 13:52 Pleural Fluid Gram Stain - Preliminary
--- NOTE | 2023-12-04 09:44 | W.PN.CARDCBS ---
Today's Communication / Plan
-
Cancel transesophageal echocardiogram
CTA chest/abd/pelvis TAVR/TMVR protocol
Continue IV diuresis
[facility]; patient accepted by Dr. Auguste
Impression / Plan
-
PCP: Dr. Sivakumar Patel
Primary Groover And Striper Operator: Dr. Garcia
Impression:
Acute On chronic HFpEF secondary to severe bioprosthetic mitral valve stenosis related to valve degeneration after index mitral valve replacement with number 27 mm epic tissue valve February 20, [address] Cannon
proBNP 4480 highest seen since 2017
Recurrent right pleural effusion Secondary to heart failure
s/p Thoracentesis 11/05/2023
s/p thoracentesis for 2 L 11/30/23
s/p thoracentesis for 1.4 L 12/02/23- transudate: Total protein less than 2 g/dL/glucose 98/LDH less than 90 U/L, white blood cells 243 with monocyte predominance. Prior cytology and cultures negative
Recent admission for colitis with right colectomy 10/14/2023 for ischemic colitis
h/o Sustained monomorphic VT evening of 10/22/23 treated with s/p Medtronic DC ICD 10/26/23
Recovered CM: CM EF 15-20% by echo Jan 2020 with EF 30% by echo 04/20/19 with h/o recovered CM EF 65% by echo 05/2022, EF 53% by echo 07/20/23
Severe multivessel CAD
CABG 02/20/[address] Cannon: QUIÑONES to LAD, SVG�D1�OM1�PDA; Mitral valve replaced with with number 27 mm epic tissue valve
s/p unsuccessful attempted PCI of LAD FIRST LEVELER 03/07/16
Left heart catheterization 2019: Total chronic occlusions of NATIE left main and 3v. TCO QUIÑONES to LAD, patent SVG seq to Diag-OM-PDA With collaterals to the LAD
s/p bioprosthetic #27mm MVR 02/20/2014
mod MS and mild to mod MR by echo 10/23/23, increased MS gradients to 51/28 by prelim echo report 12/03/23
Severe PAD
s/p right femoral endarterectomy and right iliac stenting 02/2016
s/p right SFA and popliteal INSTRUMENTATION FITTER and stent 10/24/19
possible TIA with L carotid stenosis s/p L CEA 03/03/23
Paroxysmal Afib
Chronic Eliquis OAC
HTN
Moderate to severe chronic obstructive pulmonary disease, (post-BD FEV1: 31% predicted/1.12L) without acute exacerbation
DM2 with Diabetic neuropathy, Current hemoglobin A1c 4.9%
Pulmonary HTN Secondary to left heart disease/mitral stenosis
Anemia-chronic and stable
Hx prostate cancer s/p surgery 2007; Bladder cancer
Medical marijuana use
former smoker
CATH 2019: Left main and three-vessel [employer] coronary total occlusions, patent sequential SVG to diagonal/OM/PDA with collaterals to LAD, and occluded QUIÑONES to LAD, anterolateral wall hypokinesis with mild LV dysfunction
Echo 08/2022: Mild LVH, mid to apical anterior and anteroseptal hypokinesis, EF 50%, bioprosthetic mitral valve with peak/mean gradients 10/6 mmHg, GASTON 1.5 cm�, trace MR, dilated left atrium, aortic sclerosis, normal right heart cardiac
Echo 07/20/2023: EF 53%, mild concentric LVH. Bovine mitral valve replacement well-seated peak/mean gradient 20/10 mmHg with MV area 1.4 cm�, moderate MS with mild to moderate MR. Mild TR with PAP 35 mmHg
ECHO 10/23/23: EF 68%, flattened septum in systole consistent with RV pressure overload, severely dilated left atrium, bovine mitral valve replacement with peak/mean gradients of 43/22 mmHg, concern for at least moderate bioprosthetic MS, moderate MR,
moderate TR, PAP 78 mmHg
Echo 12/03/23: prelim report, EF 72%, no WMA, normal RV size and function, bioprosthetic MVR with peak/mean 51/28 mmHg and mild to mod MR with some difficulty visualizing due to shadowing, mod TR
Plan:
Medically complex 73-year-old gentleman with ongoing heart failure with preserved ejection fraction decompensation driven by severe bioprosthetic mitral valve stenosis following index mitral valve replacement with #27mm tissue valve 02/20/2014
-Case reviewed with CT surgery, Dr. Serafin Rizzo. Planned transesophageal echocardiogram canceled today given high risk of hemodynamic compensation given severe mitral stenosis without providing providing significant new information to further his
care
-Patient would be high risk for surgical redo mitral valve replacement but is likely a candidate for transvalvular, valve in valve, mitral valve replacement.
-Discussed case with structural interventional cardiology at [facility], Dr. Tirso Auguste who has accepted him for transfer
-Spoke with radiologist, Dr. Mauricio Dorantes and will arrange CT chest/abdomen/pelvis, TAVR/TMVR protocol today
-Spoke with valve team coordinators who will facilitate transfer of CT images to industry for angular measurements for TMVR
-Patient is agreeable to plan. Offered to contact patient's family however he has declined. They are aware of plan for transfer to [place] and are all in agreement
-Updated all consultants
-For now continue IV diuresis and close monitoring of hemodynamics
HPI: Patient came to [facility] today with increased SOB and has worsened right pleural effusion, he is being admitted with acute HF and cardiology has been consulted. Patient was admitted to twice in October with colitis and eventual right colectomy
with post-op ileus. While recovering from ileus he had sustained self-terminating VT. EF previously reduced, but was 68% by echo 10/23/23. He has a Medtronic DC ICD placed 10/26/23. He Toprol XL was continued. Patient was seen in the cardiology office
Thursday and was feeling well because he had an outpatient thoracentesis in IR that day for 2 L. He says that he started to feel SOB again today and came to [facility] where a CXR revealed recurrent right pleural effusion. He just returned to his ER room
for my HPI and reports 1.4 L removed form right lung and he again feels much better. Patient reports h/o recurrent pleural effusion and that he previously had a Pleurx in place. Patient has a previous CABG and tissue MVR from 02/2014. There was mild
to mod MR and moderate MS with mean gradient 22 mmHg by echo 10/23/23. No chest pain. No edema.
Progress Note - Groover And Striper Operator
Subjective
Date of Service: December 04, 2023
Patient seen and examined prior to planned transesophageal echocardiogram which was canceled. He is still reporting shortness of breath and is concerned about reaccumulation of pleural fluid and ongoing shortness of breath/fatigue and
deconditioning. No chest pain or pressure.
Objective
Labs:
12/03/23 07:10
12/03/23 07:10
Labs
Hgb 10.7 g/dL (13.0-18.0) L 12/03/23 07:10
Hct 33.2 % (39.0-52.0) L 12/03/23 07:10
Plt Count 195 10^3/uL (130-400) 12/03/23 07:10
Sodium 139 mmol/L (135-145) 12/03/23 07:10
Potassium 4.8 mmol/L (3.5-5.1) D 12/03/23 07:10
BUN 24 mg/dl (9-20) H 12/03/23 07:10
Creatinine 0.9 mg/dL (0.7-1.3) 12/03/23 07:10
Glucose 104 mg/dl (70-99) H 12/03/23 07:10
Vital Signs and I&O:
Vital Signs
Temp Pulse Resp BP Pulse Ox
98.6 F 76 16 115/66 90
12/03/23 23:16 12/03/23 23:16 12/03/23 23:16 12/03/23 23:16 12/03/23 23:16
Vital Signs
Temp Pulse Resp BP Pulse Ox
98.6 F 76 16 115/66 90
12/03/23 23:16 12/03/23 23:16 12/03/23 23:16 12/03/23 23:16 12/03/23 23:16
Intake & Output
12/02/23 12/03/23 12/04/23 12/05/23
06:59 06:59 06:59 06:59
Intake Total 840 / 840 840 / 840
Balance 840 / 840 840 / 840
Physical Exam
Physical Exam
GEN: NAD. AAOx3, Appears chronically medically ill
HEENT: MMM
LUNGS: Decreased BS bases right worse than left. No wheeze
CV: Normal sinus rhythm. Positive S1-S2. 3/6 murmur + Device
ABD: ND, NT + BS
EXT: No edema B/L
NEURO: Gross non-focal
[2023-12-04] MEDS: ELIQUIS 5 MG PO ×2 (09:47→21:28)
[2023-12-04] MEDS: FLORASTOR 250 MG PO (09:47)
[2023-12-04] MEDS: GLUCOPHAGE 1000 MG PO ×2 (09:48→17:18)
[2023-12-04] MEDS: DUPHALAC/CHRONULAC 20 GRAMS PO (09:48)
[2023-12-04 09:53] VITALS: BP 121/58
[2023-12-04] MEDS: LASIX 60 MG PO ×2 (09:56→17:18)
[2023-12-04] MEDS: TOPROL XL 12.5 MG PO ×2 (09:56→21:29)
[2023-12-04] MEDS: TOPROL XL 25 MG PO ×2 (09:56→21:28)
--- NOTE | 2023-12-04 10:25 | W.PN.HOSP.TC ---
Today's Communication/Plan
-
Fleet enema
c/w home dose of opioid
c/w Lasix IV
Metformin and Glipizide for DM control, pt refused insulin
f/w cardiology recommendations
Assessment / Plan
Assessment / Plan
Physical Exam
General: No Apparent Distress
HEENT: PERRLA
Respiratory: Other (decreased breath sounds right lung, no wheezing )
Cardiac: S1/S2 and Regular Rhythm
GI: Non Tender
Musculoskeletal: No Edema
Skin: Warm and Dry; No Rash
Neuro: AO x 3
Psych: Calm
Mr. Herrera Angel is a 73 yo man with hx CAD s/p PCI and CABG, bioprosthetic MVR with moderate stenosis, cardiomyopathy with improved EF, hx TIA, left carotid stenosis s/p CEA 03/07, PAD s/p right SFA and popliteal UNCLAIMED PROPERTY OFFICER and stent 11/02, paroxysmal
afib on Eliquis, HTN, COPD, DM2, admission 10/11-10/28 for ischemic colitis s/p right-sided colectomy on 10/13, VT s/p AICD on 10/26/23, recent admission 11/03-11/08/23 for colitis and right pleural effusion s/p thoracentesis (no e/o infection) presented
to the ER with increasing shortness of breath despite repeat thoracentesis.
Triage VS: T 97.7, P 71, RR 13, BP 124/62, SpO2 99%
LABS: WBC 10.7, Hg 10.7, PLT 206, Na 140, K+ 3.8, Cl 101, CO2 27, Cr 0.9, Glucose 115, T. Bili 1.3, AST 23, ALT 18
#Recurrent Right Pleural Effusion
s/p thoracentesis of 1400 cc of clear yellow pleural fluid. Transudative.
Feels better after thoracentesis.
-unclear etiology. Prior thoracentesis evaluation without e/o infection. Initial path negative for malignant cells (repeat 11/29 pending). Possibly related to heart failure and bioprosthetic MVR stenosis although patient without e/o overt systemic
heart failure
Chest x-ray post thoracentesis 12/02/2023: Without infiltrate post-thoracentesis or pneumothorax
- c/w diuretic therapy
Coronary Artery Disease
Hx PCI and CABG
VT s/p AICD on 10/26/23
Bioprosthetic MVR with moderate stenosis noted and need for re-evaluation . Echo showed significant bioprosthetic mitral valve stenosis/elevated gradients
Paroxysmal Atrial Fibrillation
Ischemic Cardiomyopathy with Recovered EF
-continue UNCLAIMED PROPERTY OFFICER Eliquis 5mg PO BID
-UNCLAIMED PROPERTY OFFICER Metoprolol 375 mg PO BID
-UNCLAIMED PROPERTY OFFICER Lipitor 80mg PO qhs
# Right pulmonary atelectasis, not PNA
# Opioid induced constipation
c/w Lactulose
d/w pt, he wants fleet enema
Chronic Pain syndrome with opioid dependency
-UNCLAIMED PROPERTY OFFICER Morphine, Oxycodone and Gabapentin - patient states takes all 3 at same timing throughout day: ordered for 7AM, 2PM and 10PM
Recent Admission for Ischemic Colitis
PAD s/p stenting
-UNCLAIMED PROPERTY OFFICER Eliquis, Statin
DM2 with Neuropathy
-Diabetic Diet
-ISS, he is refusing insulin, will place back on his pills.
DVT PPx: UNCLAIMED PROPERTY OFFICER Eliquis
DNR - confirmed on admission
Total time spent to see the patient, examine the patient on the floor, review data and lab results, discuss treatment plan with patient, nursing staff around 55 minutes
Anticipated Discharge: > 48 hours
Subjective/Interval History
-
Date of Service: December 04, 2023
No chest pain
No sob
Wants Fleet enema
Objective Data
-
Vital Signs:
Vital Signs
Temp Pulse Resp BP Pulse Ox
97.8 F 70 16 121/58 90
12/04/23 09:53 12/04/23 09:56 12/04/23 09:53 12/04/23 09:56 12/03/23 23:16
I&O
12/03/23 12/04/23 12/05/23
06:59 06:59 06:59
Intake Total 840 / 840 840 / 840
Balance 840 / 840 840 / 840
[2023-12-04 11:15] VITALS: BP 115/54
[2023-12-04 12:16] LABS: Glucose - Point of Care 115 mg/dl (70-99)
[2023-12-04 16:30] VITALS: BP 115/64
[2023-12-04 16:55] LABS: Glucose - Point of Care 160 mg/dl (70-99)
[2023-12-04] MEDS: LIPITOR 80 MG PO (17:18)
[2023-12-04] MEDS: GLUCOTROL 2.5 MG PO (17:21)
[2023-12-04] MEDS: FLEET MINERAL OIL ENEMA 133 ML RECTAL (17:23)
[2023-12-04 19:00] VITALS: BP 114/51
[2023-12-04] MEDS: COLACE 100 MG PO (21:29)
[2023-12-04 22:01] LABS: Glucose - Point of Care 121 mg/dl (70-99)
[2023-12-04 23:00] VITALS: BP 118/52
[2023-12-04 23:49] VITALS: BP 118/52
--- NOTE | 2023-12-05 13:42 | W.DCSUMMARY ---
Discharge Summary
Discharge Data
Date of Admission: 12/02/23
Date of Discharge: 12/04/23
-
Pending Results: No
Hospital Course
73 years old male admitted with progressive shortness of breath and recurrent right pleural effusion. Patient had thoracentesis with successful aspiration of 1.4 L of transudative fluid. He underwent procedure with no complications. He was
evaluated by pulmonary doctor and web art director. Patient was diagnosed with acute on chronic heart failure with a preserved ejection fraction secondary to severe bioprosthetic mitral valve stenosis following index mitral valve replacement with
tissue valve in 2013. Case was reviewed with cardiothoracic surgery at [facility] and given high risk of procedure, recommended to transfer the patient to tertiary care center for evaluation of valve in valve/mitral valve replacement.
Catering Chef spoke with Dr. Zuñiga AT [facility] and patient was accepted there. Patient received symptomatic treatment with IV Lasix in the hospital with good improvement. He remained hemodynamically stable and was
transferred in a stable condition.
Discharge Plan
-
Patient Disposition: Acute Care Hospital
Discharge Orders:
Discharge Patient (As Directed); Ordered 12/04/23
Ordered By: Rebekah Yao
Discharge Date and Time
Discharge Date/Time: 12/04/23 23:20
Print Language: AMHARIC
== END 2023-12-04 23:20 | disposition short-term general hospital (02) | DRG 314 ==
LOC: 3 WEST ACU 13:12
PROVIDERS: Radiology Vascular & Interventional Radiology; ADMITTING PHYSICIAN Student in an Organized Health Care Education/Training Program; ATTENDING PHYSICIAN Internal Medicine; CONSULT PHYSICIAN Internal Medicine Cardiovascular Disease; CONSULT PHYSICIAN Internal Medicine Critical Care Medicine; EMERGENCY PHYSICIAN Emergency Medicine; FAMILY PHYSICIAN Family Medicine
PROC: 0W993ZZ Drainage of Right Pleural Cavity, Percutaneous Approach (ICD-10-PCS; 2023-12-02)
DX: T82.857A Stenosis of other cardiac prosthetic devices, implants and grafts, initial encounter (principal); I50.33 Acute on chronic diastolic (congestive) heart failure; F11.20 Opioid dependence, uncomplicated; I25.810 Atherosclerosis of coronary artery bypass graft(s) without angina pectoris; K55.9 Vascular disorder of intestine, unspecified; J98.11 Atelectasis; I25.10 Atherosclerotic heart disease of native coronary artery without angina pectoris; I11.0 Hypertensive heart disease with heart failure; E11.40 Type 2 diabetes mellitus with diabetic neuropathy, unspecified; G89.29 Other chronic pain; E78.00 Pure hypercholesterolemia, unspecified; I73.9 Peripheral vascular disease, unspecified; I48.0 Paroxysmal atrial fibrillation; T40.2X5A Adverse effect of other opioids, initial encounter; K59.03 Drug induced constipation; R06.03 Acute respiratory distress; Y92.9 Unspecified place or not applicable; Y83.1 Surgical operation with implant of artificial internal device as the cause of abnormal reaction of the patient, or of later complication, without mention of misadventure at the time of the procedure; R09.02 Hypoxemia; R06.89 Other abnormalities of breathing; J43.2 Centrilobular emphysema; I25.5 Ischemic cardiomyopathy; D64.9 Anemia, unspecified; I27.20 Pulmonary hypertension, unspecified; Z66 Do not resuscitate; Z90.49 Acquired absence of other specified parts of digestive tract; Z91.013 Allergy to seafood; Z79.84 Long term (current) use of oral hypoglycemic drugs; Z79.01 Long term (current) use of anticoagulants; Z95.810 Presence of automatic (implantable) cardiac defibrillator; Z98.61 Coronary angioplasty status; Z87.891 Personal history of nicotine dependence; Z85.46 Personal history of malignant neoplasm of prostate; Z85.51 Personal history of malignant neoplasm of bladder; Z89.412 Acquired absence of left great toe; Z95.3 Presence of xenogenic heart valve; Z86.73 Personal history of transient ischemic attack (TIA), and cerebral infarction without residual deficits; Z88.1 Allergy status to other antibiotic agents
CPT/HCPCS: 88305; 93308; 32555; 71045; 71046; 74174; 75572; 80048; 80053; 82945; 82962; 83036; 83615; 83735; 83880; 83986; 84145; 84157; 85025; 85027; 87015; 87070; 87205; 88112; 89051; 93005; 93321; 93325; 96365; 96375; 99285; Q9967

== ENCOUNTER → 2023-12-21 15:29 | Outpatient (REF) | payer MEDICARE, OTHER, SELFPAY | LOC: HWRAD 15:29 | PROVIDERS: ATTENDING PHYSICIAN Nuclear Medicine Nuclear Cardiology; FAMILY PHYSICIAN Family Medicine | DX: I42.9 Cardiomyopathy, unspecified (principal); J90 Pleural effusion, not elsewhere classified | CPT/HCPCS: 71046 ==

== ENCOUNTER → 2023-12-28 09:00 | Outpatient (REF) | payer MEDICARE, OTHER, SELFPAY ==
[2023-12-28 17:26] LABS: % Eosinophils 6.3 % (0-6); % Immature Granulocytes 0.3 % (0-0.5); % Lymphocytes 15.3 % (20.5-51.1); % Monocytes 7.7 % (1.7-9.3); % Neutrophils 69.4 % (42.2-75.2); Absolute Basophils 0.1 10^3/uL (0-0.2); Absolute Eosinophils 0.6 10^3/uL (0-0.7); Absolute Lymphocytes 1.5 10^3/uL (1.2-3.4); Absolute Monocytes 0.8 10^3/uL (0.1-0.6); Absolute Neutrophils 6.8 10^3/uL (1.4-6.5); Hematocrit 28.5 % (39.0-52.0); Hemoglobin 8.8 g/dL (13.0-18.0); Mean Corp Hgb Conc. 30.9 g/dL (33.0-37.0); Mean Corpuscular Hgb 25.8 pg (27.0-31.0); Mean Corpuscular Volume 83.6 fL (80.0-94.0); Mean Platelet Volume 11.5 fL (7.4-10.4); Nucleated Red Blood Cells % 0 % (-); Platelet Count 260 10^3/uL (130-400); Red Blood Cell Count 3.41 10^6/uL (4.70-6.10); Red Cell Dist. Width 15.4 % (11.5-14.5); White Blood Cell Count 9.8 10^3/uL (4.8-10.8)
[2023-12-28 17:31] LABS: Blood Urea Nitrogen 23 mg/dl (9-20); Calcium 8.5 mg/dl (8.4-10.2); Carbon Dioxide 32 mmol/L (22-30); Chloride 98 mmol/L (98-107); Glucose 84 mg/dl (70-99); Magnesium 2.1 mg/dl (1.6-2.3); Potassium 4.9 mmol/L (3.5-5.1); Sodium 140 mmol/L (135-145); eGFR > 60.00
== END ==
LOC: CLAB 09:00
PROVIDERS: ATTENDING PHYSICIAN Internal Medicine Cardiovascular Disease; FAMILY PHYSICIAN Family Medicine
DX: I50.22 Chronic systolic (congestive) heart failure (principal)
CPT/HCPCS: 36415; 80048; 83735; 85025

== ENCOUNTER → 2024-01-04 11:30 | Outpatient (REF) | payer MEDICARE, OTHER, SELFPAY ==
[2024-01-04 18:25] LABS: % Basophils 1.1 % (0-2); % Eosinophils 6.1 % (0-6); % Immature Granulocytes 0.4 % (0-0.5); % Lymphocytes 19.7 % (20.5-51.1); % Monocytes 8.7 % (1.7-9.3); Absolute Basophils 0.1 10^3/uL (0-0.2); Absolute Eosinophils 0.5 10^3/uL (0-0.7); Absolute Lymphocytes 1.6 10^3/uL (1.2-3.4); Absolute Monocytes 0.7 10^3/uL (0.1-0.6); Absolute Neutrophils 5.1 10^3/uL (1.4-6.5); Hematocrit 30.8 % (39.0-52.0); Hemoglobin 9.5 g/dL (13.0-18.0); Mean Corp Hgb Conc. 30.8 g/dL (33.0-37.0); Mean Corpuscular Hgb 25.6 pg (27.0-31.0); Mean Platelet Volume 11.5 fL (7.4-10.4); Nucleated Red Blood Cells % 0 % (-); Platelet Count 205 10^3/uL (130-400); Red Blood Cell Count 3.71 10^6/uL (4.70-6.10); Red Cell Dist. Width 15.3 % (11.5-14.5); White Blood Cell Count 7.9 10^3/uL (4.8-10.8)
[2024-01-04 18:31] LABS: Blood Urea Nitrogen 21 mg/dl (9-20); Carbon Dioxide 33 mmol/L (22-30); Chloride 100 mmol/L (98-107); Glucose 89 mg/dl (70-99); Magnesium 2.5 mg/dl (1.6-2.3); Potassium 5.8 mmol/L (3.5-5.1); Sodium 142 mmol/L (135-145); eGFR > 60.00
== END ==
LOC: CLAB 11:30
PROVIDERS: ATTENDING PHYSICIAN Internal Medicine Cardiovascular Disease; FAMILY PHYSICIAN Family Medicine
DX: I50.22 Chronic systolic (congestive) heart failure (principal)
CPT/HCPCS: 36415; 80048; 83735; 85025

== ENCOUNTER → 2024-03-01 15:04 | Outpatient (REF) | payer MEDICARE, OTHER, SELFPAY ==
[2024-03-01 16:00] LABS: ALT (SGPT) 28 U/L (0-50); AST (SGOT) 30 U/L (17-59); Albumin 4.7 g/dl (3.5-5.0); Alkaline Phosphatase 97 U/L (38-126); Blood Urea Nitrogen 28 mg/dl (9-20); Carbon Dioxide 31 mmol/L (22-30); Chloride 99 mmol/L (98-107); Glucose 92 mg/dl (70-99); HDL Cholesterol 60 mg/dl; LDL Cholesterol, Calculated 28 mg/dl; Sodium 141 mmol/L (135-145); Total Bilirubin 0.8 mg/dl (0.2-1.3); Total Cholesterol 103 mg/dl (50-199); Total Protein 7.8 g/dl (6.3-8.2); Triglyceride 78 mg/dl (10-149); Very Low Density Lipoprotein 15 mg/dl (0-30); eGFR > 60.00
[2024-03-01 16:30] LABS: TSH 0.54 uIU/ml (0.47-4.68)
[2024-03-02 08:27] LABS: Glycohemoglobin (HgbA1c) 5.6 % (4.0-5.6)
== END ==
LOC: REG 15:04
PROVIDERS: ATTENDING PHYSICIAN Physician Assistant; FAMILY PHYSICIAN Family Medicine
DX: I50.33 Acute on chronic diastolic (congestive) heart failure (principal); Z79.899 Other long term (current) drug therapy
CPT/HCPCS: 36415; 80053; 80061; 83036; 84443

== ENCOUNTER → 2024-03-04 13:18 | Outpatient (REF) | payer MEDICARE, OTHER, SELFPAY ==
[2024-03-04 15:04] LABS: Microalbumin, Random Urine 0.7 mg/dl (0.6-1.7); Microalbumin/creatinine Ratio 6.4 mg/g
== END ==
LOC: REG 13:18
PROVIDERS: ATTENDING PHYSICIAN Physician Assistant
DX: E11.40 Type 2 diabetes mellitus with diabetic neuropathy, unspecified (principal)
CPT/HCPCS: 82043; 82570

== ENCOUNTER 2024-03-14 14:12 | Outpatient (RCR) | payer MEDICARE, OTHER, SELFPAY ==
[2024-03-01 14:21] LABS: Glucose - Point of Care 79 mg/dl (70-99)
[2024-03-01 14:47] LABS: Glucose - Point of Care 84 mg/dl (70-99)
[2024-03-04 13:56] LABS: Glucose - Point of Care 174 mg/dl (70-99)
[2024-03-04 15:07] LABS: Glucose - Point of Care 184 mg/dl (70-99)
[2024-03-07 13:18] LABS: Glucose - Point of Care 117 mg/dl (70-99)
[2024-03-07 14:02] LABS: Glucose - Point of Care 101 mg/dl (70-99)
[2024-03-11 13:08] LABS: Glucose - Point of Care 101 mg/dl (70-99)
[2024-03-11 14:05] LABS: Glucose - Point of Care 102 mg/dl (70-99)
[2024-03-14 13:11] LABS: Glucose - Point of Care 107 mg/dl (70-99)
[2024-03-14 13:53] LABS: Glucose - Point of Care 101 mg/dl (70-99)
== END 2024-03-14 23:59 | disposition home or self-care (01) ==
LOC: CRHB 14:12
PROVIDERS: ATTENDING PHYSICIAN Nuclear Medicine Nuclear Cardiology; FAMILY PHYSICIAN Family Medicine
DX: Z95.4 Presence of other heart-valve replacement (principal); I25.10 Atherosclerotic heart disease of native coronary artery without angina pectoris (principal)
CPT/HCPCS: 82962; 93797; 93798; G0422; G0423

== ENCOUNTER → 2024-04-01 15:06 | Outpatient (REF) | payer MEDICARE, OTHER, SELFPAY | LOC: RAD 15:06 | PROVIDERS: ATTENDING PHYSICIAN Physician Assistant | DX: M54.2 Cervicalgia (principal); M25.511 Pain in right shoulder | CPT/HCPCS: 72052; 73030 ==

== ENCOUNTER 2024-04-13 13:19 | Outpatient (RCR) | payer MEDICARE, OTHER, SELFPAY ==
[2024-03-18 13:18] LABS: Glucose - Point of Care 87 mg/dl (70-99)
[2024-03-18 13:38] LABS: Glucose - Point of Care 89 mg/dl (70-99)
[2024-03-18 14:02] LABS: Glucose - Point of Care 103 mg/dl (70-99)
[2024-03-23 13:05] LABS: Glucose - Point of Care 105 mg/dl (70-99)
[2024-03-23 13:53] LABS: Glucose - Point of Care 121 mg/dl (70-99)
[2024-03-25 13:05] LABS: Glucose - Point of Care 103 mg/dl (70-99)
[2024-03-25 13:48] LABS: Glucose - Point of Care 96 mg/dl (70-99)
[2024-03-28 13:15] LABS: Glucose - Point of Care 119 mg/dl (70-99)
[2024-03-28 13:54] LABS: Glucose - Point of Care 121 mg/dl (70-99)
[2024-04-06 13:15] LABS: Glucose - Point of Care 133 mg/dl (70-99)
[2024-04-06 14:01] LABS: Glucose - Point of Care 129 mg/dl (70-99)
[2024-04-11 13:04] LABS: Glucose - Point of Care 123 mg/dl (70-99)
[2024-04-11 13:47] LABS: Glucose - Point of Care 119 mg/dl (70-99)
[2024-04-13 13:09] LABS: Glucose - Point of Care 125 mg/dl (70-99)
[2024-04-13 13:45] LABS: Glucose - Point of Care 147 mg/dl (70-99)
== END 2024-04-13 23:59 | disposition home or self-care (01) ==
LOC: CRHB 13:19
PROVIDERS: ATTENDING PHYSICIAN Nuclear Medicine Nuclear Cardiology; FAMILY PHYSICIAN Family Medicine
DX: I25.10 Atherosclerotic heart disease of native coronary artery without angina pectoris (principal); Z95.4 Presence of other heart-valve replacement
CPT/HCPCS: 82962; G0422; G0423

== ENCOUNTER 2024-04-18 14:10 | Outpatient (RCR) | payer MEDICARE, OTHER, SELFPAY ==
[2024-04-18 14:49] LABS: Glucose - Point of Care 163 mg/dl (70-99)
[2024-04-18 15:28] LABS: Glucose - Point of Care 131 mg/dl (70-99)
== END 2024-04-18 23:59 | disposition home or self-care (01) ==
LOC: CRHB 14:10
PROVIDERS: ATTENDING PHYSICIAN Nuclear Medicine Nuclear Cardiology; FAMILY PHYSICIAN Family Medicine
DX: Z95.4 Presence of other heart-valve replacement (principal); I25.10 Atherosclerotic heart disease of native coronary artery without angina pectoris (principal)
CPT/HCPCS: 82962; G0422; G0423

== ENCOUNTER → 2024-05-30 13:35 | Outpatient (REF) | payer MEDICARE, OTHER, SELFPAY | LOC: MRI 13:35 | PROVIDERS: ATTENDING PHYSICIAN Pain Medicine Interventional Pain Medicine; REFERRING PHYSICIAN Psychiatry & Neurology Neurology | DX: M54.12 Radiculopathy, cervical region (principal) | CPT/HCPCS: 72141 ==

== ENCOUNTER → 2024-09-21 14:25 | Outpatient (REF) | payer MEDICARE, OTHER, SELFPAY ==
[2024-09-21 15:21] LABS: Hematocrit 36.6 % (39.0-52.0); Hemoglobin 11.6 g/dL (13.0-18.0); Mean Corp Hgb Conc. 31.7 g/dL (33.0-37.0); Mean Corpuscular Volume 91.5 fL (80.0-94.0); Nucleated Red Blood Cells % 0 % (-); Platelet Count 145 10^3/uL (130-400); Red Cell Dist. Width 14.2 % (11.5-14.5)
[2024-09-21 15:33] LABS: Microalb - Urine Creatinine 198.200 mg/dl
[2024-09-21 15:36] LABS: Microalbumin, Random Urine 2.5 mg/dl (0.6-1.7)
[2024-09-21 15:44] LABS: ALT (SGPT) 30 U/L (0-50); AST (SGOT) 28 U/L (17-59); Albumin 4.2 g/dl (3.5-5.0); Alkaline Phosphatase 100 U/L (38-126); Blood Urea Nitrogen 23 mg/dl (9-20); Calcium 8.5 mg/dl (8.4-10.2); Carbon Dioxide 31 mmol/L (22-30); Chloride 103 mmol/L (98-107); Glucose 132 mg/dl (70-99); HDL Cholesterol 48 mg/dl; LDL Cholesterol, Calculated 26 mg/dl; Potassium 5.0 mmol/L (3.5-5.1); Sodium 140 mmol/L (135-145); Total Protein 7.1 g/dl (6.3-8.2); Very Low Density Lipoprotein 19 mg/dl (0-30); eGFR > 60.00
[2024-09-21 16:38] LABS: Vitamin B12 405 pg/ml (239-931)
[2024-09-22 10:34] LABS: Glycohemoglobin (HgbA1c) 5.4 % (4.0-5.6)
== END ==
LOC: REG 14:25
PROVIDERS: ATTENDING PHYSICIAN Physician Assistant
DX: E11.40 Type 2 diabetes mellitus with diabetic neuropathy, unspecified (principal); I10 Essential (primary) hypertension; E78.2 Mixed hyperlipidemia; Z79.899 Other long term (current) drug therapy
CPT/HCPCS: 36415; 80053; 80061; 82043; 82570; 82607; 83036; 85025

== ENCOUNTER → 2024-11-03 15:30 | Outpatient (REF) | payer MEDICARE, OTHER, SELFPAY ==
[2024-11-03 16:01] LABS: Hematocrit 38.8 % (39.0-52.0); Hemoglobin 12.5 g/dL (13.0-18.0); Mean Corp Hgb Conc. 32.2 g/dL (33.0-37.0); Mean Corpuscular Volume 88.2 fL (80.0-94.0); Nucleated Red Blood Cells % 0 % (-); Platelet Count 160 10^3/uL (130-400); Red Cell Dist. Width 13.9 % (11.5-14.5)
[2024-11-03 16:23] LABS: ALT (SGPT) 38 U/L (0-50); AST (SGOT) 32 U/L (17-59); Albumin 4.7 g/dl (3.5-5.0); Alkaline Phosphatase 99 U/L (38-126); Blood Urea Nitrogen 26 mg/dl (9-20); Calcium 9.1 mg/dl (8.4-10.2); Carbon Dioxide 30 mmol/L (22-30); Chloride 100 mmol/L (98-107); Glucose 114 mg/dl (70-99); Potassium 4.8 mmol/L (3.5-5.1); Sodium 139 mmol/L (135-145); Total Protein 8.0 g/dl (6.3-8.2); eGFR > 60.00
[2024-11-03 16:27] LABS: C-Reactive Protein < 5.00 mg/L (0.0-10.00)
[2024-11-03 16:58] LABS: Cortisol, Random 9.5 ug/dl
[2024-11-03 18:31] LABS: Urine Character Clear (Clear)
[2024-11-03 18:42] LABS: Urine Red Blood Cell 0-2 /HPF (0-2); Urine Squamous Cell 0-2 /LPF (Few); Urine White Cell 0-2 /HPF (0-5)
== END ==
LOC: RAD 15:30
PROVIDERS: ATTENDING PHYSICIAN Physician Assistant
DX: R68.89 Other general symptoms and signs (principal); F11.20 Opioid dependence, uncomplicated
CPT/HCPCS: 36415; 71046; 80053; 81003; 81015; 82533; 84443; 85025; 85652; 86140; 86618; 86666; 86753; 87086; 87468; 87484; 87798

== ENCOUNTER → 2024-12-01 15:00 | Outpatient (REF) | payer MEDICARE, OTHER, SELFPAY | LOC: REG 15:00 | PROVIDERS: ATTENDING PHYSICIAN Internal Medicine Cardiovascular Disease | DX: D50.9 Iron deficiency anemia, unspecified (principal) | CPT/HCPCS: 36415; 87040 ==

== ENCOUNTER → 2024-12-12 13:03 | Outpatient (REF) | payer MEDICARE, OTHER, SELFPAY | LOC: HWRCS 13:03 | PROVIDERS: ATTENDING PHYSICIAN Nuclear Medicine Nuclear Cardiology; FAMILY PHYSICIAN Physician Assistant | DX: Z95.2 Presence of prosthetic heart valve (principal); I42.9 Cardiomyopathy, unspecified | CPT/HCPCS: 93306 ==

== ENCOUNTER → 2025-01-02 13:25 | Outpatient (REF) | payer MEDICARE, OTHER, SELFPAY | LOC: RAD 13:25 | PROVIDERS: ATTENDING PHYSICIAN Nuclear Medicine Nuclear Cardiology; FAMILY PHYSICIAN Physician Assistant | DX: I10 Essential (primary) hypertension (principal); I25.10 Atherosclerotic heart disease of native coronary artery without angina pectoris | CPT/HCPCS: 93880 ==

== ENCOUNTER → 2025-03-04 10:44 | Outpatient (REF) | payer MEDICARE, OTHER, SELFPAY ==
[2025-03-04 12:03] LABS: Hematocrit 33.8 % (39.0-52.0); Hemoglobin 11.0 g/dL (13.0-18.0); Mean Corp Hgb Conc. 32.5 g/dL (33.0-37.0); Mean Corpuscular Volume 86.9 fL (80.0-94.0); Nucleated Red Blood Cells % 0 % (-); Platelet Count 166 10^3/uL (130-400); Red Cell Dist. Width 14.2 % (11.5-14.5)
[2025-03-04 13:51] LABS: Glycohemoglobin (HgbA1c) 5.4 % (4.0-5.9)
[2025-03-04 14:32] LABS: ALT (SGPT) 22 U/L (0-50); AST (SGOT) 27 U/L (17-59); Albumin 4.1 g/dl (3.5-5.0); Alkaline Phosphatase 105 U/L (38-126); Blood Urea Nitrogen 15 mg/dl (9-20); Calcium 8.3 mg/dl (8.4-10.2); Carbon Dioxide 27 mmol/L (22-30); Chloride 102 mmol/L (98-107); Glucose 76 mg/dl (70-99); HDL Cholesterol 45 mg/dl; LDL Cholesterol, Calculated 33 mg/dl; Potassium 5.1 mmol/L (3.5-5.1); Sodium 137 mmol/L (135-145); Total Protein 7.2 g/dl (6.3-8.2); Very Low Density Lipoprotein 10 mg/dl (0-30); eGFR > 60.00
== END ==
LOC: REG 10:44
PROVIDERS: ATTENDING PHYSICIAN Physician Assistant
DX: E11.40 Type 2 diabetes mellitus with diabetic neuropathy, unspecified (principal); I10 Essential (primary) hypertension; E78.2 Mixed hyperlipidemia
CPT/HCPCS: 36415; 80053; 80061; 83036; 85025